=== PATIENT | female | born 1955 | race Caucasian/White ===

== ENCOUNTER → 2019-05-13 10:40 | Outpatient (CLI) | payer OTHER, SELFPAY ==
[2019-05-13 12:07] LABS: Absolute Neutrophil Count 4.3 X10^3/uL (2.0-7.7); Basophil# 0.04 X10^3/uL; Basophil% 0.5 % (0-1); Eosinophil# 0.18 X10^3/uL; Eosinophils% 2.3 % (0-5); Hemoglobin 15.3 g/dL (12.0-15.0); Lymphocyte % 33.7 % (19-41); Mean Corp Hgb Conc 31.9 g/dL (32-36); Mean Corpuscular Hgb 29.7 pg (27.0-32.0); Mean Platelet Vol. 9.2 fl (6.2-12.0); Monocyte# 0.61 X10^3/uL; Monocyte% 7.9 % (0-10); NRBC Flagged by Analyzer 0 % (0-5); Neutrophil # 4.26 X10^3/uL (2.7-7.7); Neutrophil % 55.3 % (47-70); Platelet Count 333 K/mm3 (150-450); RBC Distribution Width CV 13.6 % (11.6-14.6); RBC Distribution Width SD 46.9 fl (35.1-43.9); Red Blood Count 5.16 M/mm3 (4.2-5.4); White Blood Count 7.7 K/mm3 (4.4-11.0)
[2019-05-13 12:41] LABS: ALB/GLOB Ratio 0.7 RATIO (0.9-2.4); AST(SGOT) 12 U/L (15-37); Alanine Aminotransfer ALT/SGPT 32 U/L (13-56); Albumin, Serum 3.4 g/dL (3.2-5.0); Alkaline Phosphatase 90 U/L (45-117); Anion Gap 2 (5-15); BUN 8 mg/dL (7-18); BUN/Creat Ratio 11.5 RATIO (10-20); Calcium,Total 9.3 mg/dL (8.5-10.1); Chloride 102 mmol/L (98-107); EST Glomerular Filtration Rate 90 mL/min (>60); Est Glom Filt Rate - Afr Amer 109 mL/min (>60); Globulin 4.8 g/dL (2.2-4.2); Glucose 103 mg/dL (74-106); Protein, Total 8.2 g/dL (6.4-8.2); Sodium Level 138 mmol/L (136-145); T4 Free Direct 1.44 ng/dL (0.76-1.46); Thyroid Stim Hormone (TSH) 0.63 uIU/mL (0.358-3.74)
== END ==
PROVIDERS: Family Provider Family Medicine; PCP Family Medicine; Visit Provider Family Medicine
DX: I10 Essential (primary) hypertension (principal); E03.9 Hypothyroidism, unspecified; R73.01 Impaired fasting glucose
CPT/HCPCS: 36415; 80053; 84439; 84443; 85025

== ENCOUNTER → 2020-03-19 09:59 | Outpatient (CLI) | payer OTHER, SELFPAY ==
[2020-03-19 12:23] LABS: Absolute Lymphocyte Count 3.14 X10^3/uL (0.83-4.51); Basophil# 0.04 X10^3/uL; Basophil% 0.4 % (0-1); Eosinophil# 0.19 X10^3/uL; Eosinophils% 1.7 % (0-5); Hematocrit 46.6 % (37-47); Lymphocyte # 3.14 X10^3/ul (4.0); Lymphocyte % 28.3 % (19-41); Mean Corp Hgb Conc 32.2 g/dL (32-36); Mean Corpuscular Hgb 29.8 pg (27.0-32.0); Mean Corpuscular Volume 92.6 fL (81-99); Mean Platelet Vol. 9.7 fl (6.2-12.0); Monocyte# 0.72 X10^3/uL; Monocyte% 6.5 % (0-10); NRBC Flagged by Analyzer 0 % (0-5); Neutrophil # 6.98 X10^3/uL (2.7-7.7); Neutrophil % 62.8 % (47-70); Platelet Count 307 K/mm3 (150-450); RBC Distribution Width CV 13.3 % (11.6-14.6); RBC Distribution Width SD 45.1 fl (35.1-43.9); Red Blood Count 5.03 M/mm3 (4.2-5.4); White Blood Count 11.1 K/mm3 (4.4-11.0)
[2020-03-19 12:49] LABS: ALB/GLOB Ratio 0.6 RATIO (0.9-2.4); AST(SGOT) 9 U/L (15-37); Alanine Aminotransfer ALT/SGPT 25 U/L (13-56); Albumin, Serum 3.3 g/dL (3.2-5.0); Alkaline Phosphatase 109 U/L (45-117); Anion Gap 5 (5-15); BUN 9 mg/dL (7-18); BUN/Creat Ratio 13.2 RATIO (10-20); Calcium,Total 9.7 mg/dL (8.5-10.1); Chloride 104 mmol/L (98-107); Cholesterol 172 mg/dL (200); Creatinine, Serum 0.68 mg/dL (0.55-1.02); EST Glomerular Filtration Rate 92 mL/min (>60); Est Glom Filt Rate - Afr Amer 111 mL/min (>60); Free T3 2.9 pg/mL (2.18-3.98); Globulin 5.2 g/dL (2.2-4.2); Glucose 115 mg/dL (74-106); High Density Lipoprotein 50 mg/dL; Potassium 3.8 mmol/L (3.5-5.1); Protein, Total 8.5 g/dL (6.4-8.2); Sodium Level 140 mmol/L (136-145); T4 Free Direct 1.32 ng/dL (0.76-1.46); Thyroid Stim Hormone (TSH) 0.69 uIU/mL (0.358-3.74); Triglycerides 96 mg/dL; Very Low Density Lipoprotein 19 mg/dL (5-40)
== END ==
PROVIDERS: PCP Family Medicine; Visit Provider Family Medicine
DX: I10 Essential (primary) hypertension (principal); E03.9 Hypothyroidism, unspecified; R73.01 Impaired fasting glucose
CPT/HCPCS: 36415; 80053; 80061; 84439; 84443; 84481; 85025

== ENCOUNTER → 2022-04-07 | Outpatient (CLI) | payer MEDICARE, BC, SELFPAY ==
[2022-04-07 11:50] LABS: Absolute Lymphocyte Count 2.15 X10^3/uL (0.83-4.51); Absolute Neutrophil Count 4.3 X10^3/uL (2.0-7.7); Basophil# 0.05 X10^3/uL; Basophil% 0.7 % (0-1); Eosinophil# 0.19 X10^3/uL; Eosinophils% 2.6 % (0-5); Hematocrit 46.3 % (37-47); Hemoglobin 14.5 g/dL (12.0-15.0); Lymphocyte # 2.15 X10^3/ul (0.83-4.51); Lymphocyte % 29.9 % (19-41); Mean Corp Hgb Conc 31.3 g/dL (32-36); Mean Corpuscular Hgb 29.4 pg (27.0-32.0); Mean Corpuscular Volume 93.7 fL (81-99); Mean Platelet Vol. 9.6 fl (6.2-12.0); Monocyte# 0.53 X10^3/uL; Monocyte% 7.4 % (0-10); NRBC Flagged by Analyzer 0 % (0-5); Neutrophil # 4.26 X10^3/uL (2.7-7.7); Neutrophil % 59.1 % (47-70); Platelet Count 327 K/mm3 (150-450); RBC Distribution Width CV 13.6 % (11.6-14.6); RBC Distribution Width SD 46.7 fl (35.1-43.9); Red Blood Count 4.94 M/mm3 (4.2-5.4); White Blood Count 7.2 K/mm3 (4.4-11.0)
[2022-04-07 12:25] LABS: Anion Gap 7 (5-15); BUN 21 mg/dL (7-18); BUN/Creat Ratio 28.5 RATIO (10-20); Calcium,Total 10.3 mg/dL (8.5-10.1); Chloride 101 mmol/L (98-107); Creatinine, Serum 0.74 mg/dL (0.55-1.02); EST Glomerular Filtration Rate 84 mL/min (>60); Est Glom Filt Rate - Afr Amer 101 mL/min (>60); Glucose 113 mg/dL (74-106); Potassium 3.9 mmol/L (3.5-5.1); Sodium Level 140 mmol/L (136-145); T4 Free Direct 1.29 ng/dL (0.76-1.46); Thyroid Stim Hormone (TSH) 0.86 uIU/mL (0.358-3.74)
== END | disposition home or self-care (01) ==
LOC: BFHLAB 09:43
PROVIDERS: PCP Family Medicine; Visit Provider Family Medicine
DX: I10 Essential (primary) hypertension (principal); E03.9 Hypothyroidism, unspecified
CPT/HCPCS: 36415; 80048; 84439; 84443; 85025

== ENCOUNTER 2022-05-30 14:30 | Outpatient (RCR) | payer MEDICARE, BC, SELFPAY ==
--- NOTE | 2022-04-25 13:08 | HP.PTEVAL_ITS ---
Patient's Visit Information TOMMY MENDEZ is a 66 year old F referred to Physical Therapy by Dr. Alphonse Santos MD with a diagnosis of R hip OA. Date of Evaluation: 04/25/22 Physical Therapist: Rosalio Langley, MADIHAT, OCS, CSCS - Visit Plan Frequency: 2x /Week Duration: 4-6 Weeks Plan: 2x/week for 4-6 weeks for pool based hip R ROM, stretch quad and HS and strength core, hip LE. progress to [id number] pool if desired or consider HEP - Subjective R hip is awkward to walk. pain is 2/10 in R hip for 6 months insidiously. hard to sit and hard to lift R leg to put socks and shoes on. Pain is lateral at R hip. Comfortable when sitting but painful to get up and needs UE. X ray at Dr. Santos and is near bone on bone. May need surgery down the road. Retired. Spends day doing cross stitch and knitting. Basic ADLs: Showers and bathroom are Ok but getting there and lifting R LE is rough. No regular exercises. No other treatments for the hip. - Pain R lateral hip Pain Intensity (Out of 10): 0 Pain Intensity Range: 0, 2 - Objective R leg one half inch shorter and wears lift. Walks with a limp and short stance time on R. Trasnfers requiring UE to exit chair and very stiff. R hip AROM very llimited to 5 abd, 75 flexion, 30 ext rotation, 3 IR with pain with OP past these measurements. L HIp 100 flexion, 50 ext rotation, 15 IR, 20 abduction. + R SABAS and FADDIR, + RScour. Knee also crepitus on R maximally with some pain. reflexes 2/3 patella and achilles. Sensation WNL to gross light touch in LE. strength R hip flexion 3, abd 3, ext 3, L sided is 3+. knee ext 3+ R and pain in knee, 4- flexion, L is 4- . ankles strnegth is 4- B ankles all 4 motions. - Balance/Special Test Scores Lower Extremity Functional Score: 47 - Goals Goal 1:: Pain in R hip 1/10 at most and 50% improved. Goal Time Frame: 4-6 Weeks Goal 2:: Patient exit chair without UE or evidence of pain Goal Time Frame: 4-6 Weeks Goal 3:: LEFS 60 Goal Time Frame: 4-6 Weeks Goal 4:: I management of hip pain with pool or HEP Goal Time Frame: 4-6 Weeks - Rehabilitation Potential Physical Therapy Diagnosis: R hip degeneration limiting function. Rehabilitation Potential: Questionable - Anticipated Interventions Patient/Client Instruction: Educate patient on: Condition, Plan of Care For the Purpose of:: To decrease pain, To increase ROM, To improve muscle perf ormance and motor function, To increase tolerance to activity/condition/position Therapeutic Exercise to Include: Strength training, Flexibilty training, In an aquatic setting, Passive ROM, Active ROM For the Purpose of:: To decrease pain, To increase ROM, To improve nutrient delivery to tissue, To improve muscle performance and motor function, To increase tolerance to activity/condition/position, To improve ability of physical actions for home/community/work/leisure Thank you for the opportunity to evaluate your patient. For Medicare and Medicare HMO plans, please review the plan of care and approve it. It will need to be FAXED BACK to us at [phone] for Medicare purposes. For Medicare only, by signing this I certify the plan of care. Please let me know if there are questions or concerns regarding this plan of care. Physician Signature: Date:
--- NOTE | 2022-05-30 14:48 | HP.PTDCSUM ---
It has been my pleasure to treat TOMMY MENDEZ referred by Dr. Alphonse Santos MD, with the diagnosis of R hip OA for a total of 9 visit(s). Discharge Date: 05/30/22 Please see the following information for a summary of their discharge status. Subjective: Has cane that she uses sometimes. Pool helps but pain overall not much overall. Pain 2/10 much of time. Sleeping requires her to move around alot. R knee is hurting now a little bit. Activities are normal just painful. easier to put R shoe on. R lateral hip Pain Intensity (Out of 10): 2 % Improvement: 50 Objective/Function: R antalgia in gait, avoiding L step through. short stance time on R. Exits chair with UE adn avoids WB R. 90 AROM R hip flexion and still + SABAS adn FADDIR. Goal 1:: Pain in R hip 1/10 at most and 50% improved. Goal Progress: Progressing Goal 2:: Patient exit chair without UE or evidence of pain Goal Progress: leans off right Goal 3:: LEFS 60 Goal Progress: Not Progressing Goal 4:: I management of hip pain with pool or HEP Goal Progress: Progressing Plan: d/c, pt to go to doctor due to lack of improvement for next medical step. she will contact him. Discharge Comments: Pt top doctor for next step If there are questions or concerns regarding this patient's physical therapy, please feel free to call me at [phone]. Thank you for the referral of this patient. Sincerely, Rosalio Langley, DPT, OCS, CSCS Balance/Gait/Functional tests - Balance/Special Test Scores Lower Extremity Functional Score: 55
== END 2022-05-30 19:00 | disposition home or self-care (01) ==
LOC: PT 14:30
PROVIDERS: PCP Family Medicine; Referring Provider Orthopaedic Surgery; Visit Provider Orthopaedic Surgery
DX: M16.11 Unilateral primary osteoarthritis, right hip (principal)
CPT/HCPCS: 97113; 97161; 97164

== ENCOUNTER → 2022-08-01 | Outpatient (CLI) | payer MEDICARE, SELFPAY ==
[2022-08-01 12:50] LABS: Absolute Lymphocyte Count 2.74 X10^3/uL (0.83-4.51); Absolute Neutrophil Count 3.8 X10^3/uL (2.0-7.7); Basophil# 0.05 X10^3/uL; Basophil% 0.7 % (0-1); Eosinophil# 0.22 X10^3/uL; Hemoglobin 14.4 g/dL (12.0-15.0); Lymphocyte # 2.74 X10^3/ul (0.83-4.51); Lymphocyte % 37.3 % (19-41); Mean Corp Hgb Conc 31.3 g/dL (32-36); Mean Corpuscular Hgb 30.1 pg (27.0-32.0); Mean Platelet Vol. 9.3 fl (6.2-12.0); Monocyte# 0.52 X10^3/uL; Monocyte% 7.1 % (0-10); NRBC Flagged by Analyzer 0 % (0-5); Neutrophil # 3.81 X10^3/uL (2.7-7.7); Neutrophil % 51.8 % (47-70); Platelet Count 344 K/mm3 (150-450); RBC Distribution Width CV 13.5 % (11.6-14.6); RBC Distribution Width SD 48.6 fl (35.1-43.9); Red Blood Count 4.79 M/mm3 (4.2-5.4); White Blood Count 7.4 K/mm3 (4.4-11.0)
[2022-08-01 12:57] LABS: Anion Gap 6 (5-15); BUN 16 mg/dL (7-18); BUN/Creat Ratio 22.6 RATIO (10-20); Calcium,Total 10.5 mg/dL (8.5-10.1); Chloride 101 mmol/L (98-107); Creatinine, Serum 0.71 mg/dL (0.55-1.02); EST Glomerular Filtration Rate 88 mL/min (>60); Est Glom Filt Rate - Afr Amer 106 mL/min (>60); Glucose 102 mg/dL (74-106); Potassium 3.9 mmol/L (3.5-5.1); Sodium Level 141 mmol/L (136-145)
== END | disposition home or self-care (01) ==
LOC: BFHLAB 11:04
PROVIDERS: PCP Family Medicine; Visit Provider Family Medicine
DX: Z01.818 Encounter for other preprocedural examination (principal); I10 Essential (primary) hypertension
CPT/HCPCS: 36415; 80048; 85025

== ENCOUNTER 2022-09-21 16:27 | Inpatient (IN) | payer MEDICARE, SELFPAY ==
[2022-09-21] VITALS (7 sets, daily range): BP systolic 131–150; BP diastolic 60–76; PULSE 107–120; RESP 20–40; TEMP 36.2–36.8; O2SAT 69–100; BMI 33.3; BMI 32.6
--- NOTE | 2022-09-21 16:40 | EKG12_ITS ---
Test Reason : SWELLING Blood Pressure : / mmHG Vent. Rate : 112 BPM Atrial Rate : 112 BPM P-R Int : 140 ms QRS Dur : 068 ms QT Int : 336 ms P-R-T Axes : 039 -56 -14 degrees QTc Int : 458 ms Sinus tachycardia with Premature atrial complexes Left axis deviation Inferior infarct , age undetermined Anterolateral infarct , age undetermined Abnormal ECG Confirmed by RICHARD VICK, SHANON ([id number]), field map editor PHUC CARTER ([id number]) on 09/25/2022 11:43:05 AM Referred By: RIANNA Confirmed By:YUSUF RAMOS MD
--- NOTE | 2022-09-21 16:43 | RAD_ITS ---
STUDY: X-RAY CHEST REASON FOR EXAM: Female, 66 years old. hypoxia TECHNIQUE: Single AP portable view of the chest. COMPARISON: None. FINDINGS: There is right paratracheal and hilar fullness concerning for underlying lymphadenopathy and mass. Prominent interstitial markings within the bilateral lungs are present. There is no demonstrated pleural abnormality. Normal size heart. Normal mediastinum and [place]. Normal visualized pulmonary arteries. There is atherosclerotic tortuosity of the aortic arch and descending thoracic aorta. Normal visualized thoracic spine. Normal visualized ribs, clavicles, and shoulders. There is no demonstrated abnormality of the visualized soft tissue structures of the upper abdomen. RAD/Chest 1 View (Portable) IMPRESSION: Right hilar fullness with paratracheal lymphadenopathy and mass not excluded, recommend cross-sectional CT imaging with contrast for definitive characterization. Electronically Signed: Gianni Hunter DO at 17:03 EDT ,
[2022-09-21 16:57] LABS: Absolute Lymphocyte Count 1.26 X10^3/uL (0.83-4.51); Absolute Neutrophil Count 7.7 X10^3/uL (2.0-7.7); Basophil# 0.04 X10^3/uL; Basophil% 0.4 % (0-1); Eosinophil# 0.06 X10^3/uL; Eosinophils% 0.6 % (0-5); Hemoglobin 13.7 g/dL (12.0-15.0); Lymphocyte # 1.26 X10^3/ul (0.83-4.51); Lymphocyte % 12.7 % (19-41); Mean Corp Hgb Conc 29.1 g/dL (32-36); Mean Corpuscular Hgb 28.7 pg (27.0-32.0); Mean Corpuscular Volume 98.5 fL (81-99); Mean Platelet Vol. 8.9 fl (6.2-12.0); Monocyte# 0.91 X10^3/uL; Monocyte% 9.1 % (0-10); NRBC Flagged by Analyzer 0.2 % (0-5); Neutrophil # 7.65 X10^3/uL (2.7-7.7); Neutrophil % 76.9 % (47-70); Platelet Count 407 K/mm3 (150-450); RBC Distribution Width CV 17.6 % (11.6-14.6); RBC Distribution Width SD 63.5 fl (35.1-43.9); Red Blood Count 4.77 M/mm3 (4.2-5.4)
[2022-09-21 17:04] LABS: International Normalized Ratio 1.2; Prothrombin Time (Protime)PT. 14.6 SECONDS (11.7-14.9)
[2022-09-21 17:05] LABS: Partial Thromboplast Time 25.1 Seconds (24.1-36.2)
--- NOTE | 2022-09-21 17:09 | CT_ITS ---
STUDY: CTA CHEST REASON FOR EXAM: Female, 66 years old. HYPOXIA RADIATION DOSAGE (If Supplied By Facility): CTDIvol = ( 13.64 ) mGy, DLP = ( 370.24 ) mGycm TECHNIQUE: The examination was performed with the intravenous administration of IV 100mL Isovue-370. Post-processing of the angiographic images was performed, with multiplanar reformation and 3D reconstruction. Individualized dose optimization techniques were used for this CT. COMPARISON: 09/21/2022 plain film chest. FINDINGS: Normal enhancement of the main pulmonary artery and right and left pulmonary arteries. Normal enhancement of the bilateral peripheral pulmonary arteries. There is no demonstrated pulmonary embolism. Normal thoracic aorta and visualized great vessels. There is no demonstrated aortic dissection. Normal heart and pericardium. There is prominent node overlying the right paratracheal region measuring approximately 2.0 cm difficult to visualize on examination due to streaking artifact.. Normal hilar regions. Normal visualized trachea and bronchi. The lungs are well expanded. Scattered regions of air trapping are present with right lung scattered areas of groundglass opacity within the right upper and lower lobe. Normal pleura. Normal chest wall structures. There are degenerative changes of thoracic spine. Normal visualized upper abdomen. CT/CTA Chest W/WO Contrast IMPRESSION: 1. No evidence of pulmonary embolus or aortic dissection. 2. Scattered areas of air trapping within the bilateral lung parenchyma with patchy areas of groundglass opacity within the right lung with underlying multifocal infiltrates versus alveolar edema present. 3. Questionable 2 cm lymph node overlies the right paratracheal region with the majority of opacity on recent plain film within the right hilar region caused by overlapping vascular structures. Recommend follow-up imaging in 4-[address] chest without contrast for confirmation. Electronically Signed: Gianni Hunter DO at 18:42 EDT ,
[2022-09-21 17:15] LABS: ALB/GLOB Ratio 0.7 RATIO (0.9-2.4); AST(SGOT) 14 U/L (15-37); Alanine Aminotransfer ALT/SGPT 27 U/L (13-56); Albumin, Serum 3.1 g/dL (3.2-5.0); Alkaline Phosphatase 109 U/L (45-117); Anion Gap 4 (5-15); BUN 31 mg/dL (7-18); BUN/Creat Ratio 35.6 RATIO (10-20); Calcium,Total 9.8 mg/dL (8.5-10.1); Chloride 104 mmol/L (98-107); Creatinine, Serum 0.87 mg/dL (0.55-1.02); EST Glomerular Filtration Rate 69 mL/min (>60); Est Glom Filt Rate - Afr Amer 84 mL/min (>60); Globulin 4.5 g/dL (2.2-4.2); Glucose 117 mg/dL (74-106); Potassium 3.4 mmol/L (3.5-5.1); Protein, Total 7.6 g/dL (6.4-8.2); Sodium Level 139 mmol/L (136-145); Troponin-I HS 38 pg/mL (3.0-54.0)
--- NOTE | 2022-09-21 17:20 | EDS_ITS ---
HPI History of Present Illness Chief Complaint: Shortness of Breath Narrative Narrative: 66-year-old female presenting with shortness of breath for last couple of weeks. Patient status post right total hip replacement 08/20/[address] Harmon at the [facility]. She does deny chest pain but does state that she is very dyspneic. Especially on exertion. She states that she can probably walk about 100 feet now. Before that she did not have any problems. Patient denies fever or chills. She does not have a significant cough. No history of CHF, COPD, CHF. Patient does know a lot of bilateral lower extremity edema. She was not sure why her left leg was so swollen like her right leg since he only had surgery on the right. Patient states she does not sleep flat and she does sleep sitting up and states she is normally a right side sleeper and since she had right hip surgery she was told not to sleep on her side. PFSH PFS Medical History Cataract HTN (hypertension) Hypothyroid Home Medications acetaminophen 650 mg tablet,extended release 650 mg PO Q12H PAIN 09/21/22 [History Last Taken 09/21/22] aspirin 325 mg tablet 325 mg PO DAILY HEART HEALTH 09/21/22 [History Last Taken 09/21/22] levothyroxine 50 mcg tablet 50 mcg PO DAILY THYROID 09/21/22 [History Last Taken 09/21/22] lisinopril 10 mg-hydrochlorothiazide 12.5 mg tablet 1 tab PO QHS HTN 09/21/22 [History Last Taken 09/20/22] Allergy/AdvReac Type Severity Reaction Status Date / Time Penicillins Allergy Hives Verified 09/21/22 19:26 Surgical History History of right hip replacement Social History (Updated 09/21/22 @ 19:[address] Em Diamond DO) household members: spouse housing: house Smoking Status: Never smoker alcohol intake: never substance use type: does not use ROS ROS ED Constitutional Constitutional ED: Denies chills or fever(s) Eyes Eyes: Denies change in vision or diplopia ENT ENT ED: Denies rhinorrhea or sore throat Cardiovascular Cardiovascular: Reports orthopnea; Denies chest pain Respiratory/Chest Respiratory/Chest: Reports dyspnea, dyspnea on exertion and orthopnea Gastrointestinal Gastrointestinal: Denies abdominal pain, nausea or vomiting Genitourinary Genitourinary ED: Denies dysuria or hematuria Musculoskeletal Musculoskeletal: Denies arthralgias Integumentary Denies abscess or Abrasions Neurologic Neurologic: Denies headache(s) or paresthesias Psychiatric Psychiatric: Denies anxiety or depression EXAM Physical Exam Const Vital Signs: 09/21/22 16:29 09/21/22 16:32 09/21/22 16:35 Temperature 97.7 F L 97.7 F L Temperature Source Oral Oral Pulse Rate 120 H 119 H Respiratory Rate 29 H 40 H Respiratory Effort Short of Breath Labored Respiratory Depth Shallow Respiratory Pattern Tachypnea Blood Pressure 150/60 H Blood Pressure Mean 90 Pulse Ox 69 96 Oxygen Delivery Method Room Air Nasal Cannula Oxygen Flow Rate (L/min) 4 09/21/22 16:47 09/21/22 17:50 09/21/22 17:50 Temperature 97.2 F L Temperature Source Temporal Pulse Rate 109 H 107 H Respiratory Rate 28 H 32 H Respiratory Effort Respiratory Depth Respiratory Pattern Blood Pressure 131/67 H 131/67 H Blood Pressure Mean 88 88 Pulse Ox 100 98 Oxygen Delivery Method Nasal Cannula Nasal Cannula Nasal Cannula Oxygen Flow Rate (L/min) 4 4 4 Positive well nourished General Appearance ED: NAD HEENT Reports moist mucous membranes Eyes PERRL and EOMs intact bilaterally Neck no lymphadenopathy and supple Resp normal respiratory effort Auscultation: rales bilateral throughout Cardio regular rhythm Rate: tachycardic GI non-tender Neuro oriented x3 and CN's II-XII intact bilaterally Sensorium / Orientation: alert Motor Exam: strength 5/5 throughout Psych mental status grossly normal Skin Skin Narrative: Bilateral lower extremity edema which symmetric MDM MDM MDM Narrative Medical decision making narrative: Patient presenting tachycardic, tachypneic, hypoxic. Sepsis work-up initiated. Patient reporting shortness of breath worsening over 2 to 3 weeks. No fevers. No chest pain. Differential includes but is not limited to ACS, CHF, pneumonia, pulmonary embolism. EKG was obtained and on my interpretation this is a sinus tachycardia with PACs. The rate is 112 bpm. WI interval 140 ms, QRS duration 48 ms. No STEMI. CBC shows no leukocytosis. Hemoglobin macular stable. Platelets are normal. Renal function is normal. Potassium slightly low at 3.4. Glucose 117 without anion gap. LFTs are unremarkable. BNP elevated at 463. High-sensitivity troponin is 38. Lactic acid 2.0 urinalysis was negative for infection. Chest x-ray on my interpretation appears consistent with CHF. Radiology interprets this is right perihilar fullness and concern for mass. I obtained a CTA of the chest which was negative for PE but the radiologist does interpret this as multifocal infiltrates versus CHF. I believe this is CHF. As the patient does not have a leukocytosis. She is not had a fever. He has not had chills or body aches to suggest infection. Patient given 40 mg of Lasix IV. Discussed with the hospitalist for admission. Impression: 1. CHF 2. Hypoxic respiratory failure Lab Data Attestation: I reviewed the patient's lab results. Labs: Laboratory Results - last 24 hr 09/21/22 09/21/22 09/21/22 16:30 16:30 16:30 WBC 10.0 RBC 4.77 Hgb 13.7 Hct 47.0 MCV 98.5 MCH 28.7 MCHC 29.1 L RDW Std Deviation 63.5 H RDW Coeff of [place] 17.6 H Plt Count 407 MPV 8.9 Immature Gran % (Auto) 0.300 Neut % (Auto) 76.9 H Lymph % (Auto) 12.7 L [place] % (Auto) 9.1 Eos % (Auto) 0.6 Baso % (Auto) 0.4 Absolute Neuts (auto) 7.7 Absolute Lymphs (auto) 1.26 Nucleated RBC % 0.2 PT 14.6 INR 1.2 APTT 25.1 Sodium 139 Potassium 3.4 L Chloride 104 Carbon Dioxide 31.0 Anion Gap 4 L BUN 31 H Creatinine 0.87 Estim Creat Clear Calc 48.00 Est GFR (MDRD) Af Amer 84 Est GFR (MDRD) Non-Af 69 BUN/Creatinine Ratio 35.6 H Glucose 117 H Lactic Acid Calcium 9.8 Total Bilirubin 0.60 AST 14 L ALT 27 Alkaline Phosphatase 109 Troponin I High Sens 38 B-Natriuretic Peptide Total Protein 7.6 Albumin 3.1 L Globulin 4.5 H Albumin/Globulin Ratio 0.7 L Urine Color Urine Clarity Urine pH Ur Specific [place] Urine Protein Urine Glucose (UA) Urine Ketones Urine Occult Blood Urine Nitrite Urine Bilirubin Urine Urobilinogen Ur Leukocyte Esterase Urine RBC Urine WBC Ur Squamous Epith Cells Ur Renal Epithelial Cell Urine Bacteria Urine Mucus 09/21/22 09/21/22 09/21/22 16:30 17:00 18:35 WBC RBC Hgb Hct MCV MCH MCHC RDW Std Deviation RDW Coeff of [place] Plt Count MPV Immature Gran % (Auto) Neut % (Auto) Lymph % (Auto) Jerome % (Auto) Eos % (Auto) Baso % (Auto) Absolute Neuts (auto) Absolute Lymphs (auto) Nucleated RBC % PT INR APTT Sodium Potassium Chloride Carbon Dioxide Anion Gap BUN Creatinine Estim Creat Clear Calc Est GFR (MDRD) Af Amer Est GFR (MDRD) Non-Af BUN/Creatinine Ratio Glucose Lactic Acid 2.0 Calcium Total Bilirubin AST ALT Alkaline Phosphatase Troponin I High Sens B-Natriuretic Peptide 463.0 H Total Protein Albumin Globulin Albumin/Globulin Ratio Urine Color Yellow Urine Clarity Clear Urine pH 6.0 Ur Specific [place] 1.015 Urine Protein 100 H Urine Glucose (UA) Normal Urine Ketones Negative Urine Occult Blood 10 H Urine Nitrite Negative Urine Bilirubin Negative Urine Urobilinogen 1 H Ur Leukocyte Esterase 100 H Urine RBC 0 SEEN Urine WBC 0-5 SEEN Ur Squamous Epith Cells 0-5 SEEN Ur Renal Epithelial Cell 0-5 SEEN Urine Bacteria 0 SEEN Urine Mucus 0 SEEN Radiography Diagnostic Testing: Clinical Impression(s) from Imaging Studies Chest X-Ray 09/21/22 16:43 IMPRESSION: Right hilar fullness with paratracheal lymphadenopathy and mass not excluded, recommend cross-sectional CT imaging with contrast for definitive characterization. Electronically Signed: Gianni Hunter DO at 17:03 EDT , Chest CTA 09/21/22 17:09 IMPRESSION: 1. No evidence of pulmonary embolus or aortic dissection. 2. Scattered areas of air trapping within the bilateral lung parenchyma with patchy areas of groundglass opacity within the right lung with underlying multifocal infiltrates versus alveolar edema present. 3. Questionable 2 cm lymph node overlies the right paratracheal region with the majority of opacity on recent plain film within the right hilar region caused by overlapping vascular structures. Recommend follow-up imaging in 4-[address] chest without contrast for confirmation. Electronically Signed: Gianni Hunter DO at 18:42 EDT , Discharge Plan Disposition Disposition: Acute Care [facility] Discharge Date/Time: 09/21/22 19:46
[2022-09-21 18:46] LABS: Bacteria 0 SEEN /hpf (None Seen); Color, Urine Yellow (Yellow); Glucose, Dipstick Normal (Normal); Ketone-Dipstick Negative (Negative); Leukocyte Esterase-Dipstick 100 /ul (Negative); Mucous, Urine 0 SEEN /hpf (<or=2+); Nitrite-Dipstick Negative (Negative); Occult Blood-Urine 10 /ul (Negative); Protein-Dipstick 100 mg/dl (Negative); Red Blood Cells-Urine 0 SEEN /hpf (0-5); Specific Gravity, Urine 1.015 (1.002-1.030); Urine Bilirubin Dipstick Negative (Negative); Urine Clarity Clear (Clear); Urine Urobilinogen 1 mg/dl (Normal)
[2022-09-21 18:52] LABS: Renal Epithelial Cells 0-5 SEEN /hpf (0-5); Squamous Epithelial Cells - UA 0-5 SEEN /hpf (5-10); White Blood Cells 0-5 SEEN /hpf (0-5)
--- NOTE | 2022-09-21 18:59 | HP.PCM.HOS_ITS ---
HPI - General General Date of Admission: 09/21/22 Date of Service: 09/21/22 Chief Complaint: Shortness of Breath HPI Narrative TOMMY MENDEZ, is a 66 F who presented to the emergency department at [facility] on 09/21/2022 with shortness of breath. The patient had a total hip arthroplasty on the right side at [facility] done by Dr. Santos on 08/21/2022. The patient states she felt okay for couple days and then developed worsening shortness of breath that has slowly worsened over the past 3 weeks. She denied ever having any chest pain diaphoresis, nausea or vomiting. She states she has been significantly fatigued and sleeps a lot, noticing edema in her lower extremities that has progressively gotten worse bilaterally, and increasing shortness of breath. She states she went to physical therapy today and they sent her to her primary care physician's office who in turn sent her immediately to the emergency department. She has had no fever or chills, no coughing, no malaise or body aches, she denies any nausea, vomiting, diarrhea, constipation, melena, hematochezia, urinary symptoms, tingling, numbness, or new focal deficit. Past medical history only includes hypertension and hypothyroidism. Vital signs on presentation showed a temperature of 97.7, heart rate 120, blood pressure 150/160, respiratory rate has been anywhere from 28-40, oxygen saturation was 69% on room air and improved to 96 to 100% on 4 L nasal cannula. Despite supplemental oxygen the patient may remain somewhat tachypneic however s hows no sign of pending respiratory failure requiring intubation. Her CBC is overall unremarkable. She does have a mild left shift with a 76.9% neutrophilia. Coags were unremarkable. Chemistry panel shows mild hypokalemia with a potassium of 3.4 but is otherwise unremarkable. Glucose was 117. She is not diabetic at baseline. Lactic acid was 2. Liver functions are normal. Troponin initially was 38. BNP was markedly elevated at 463.0. Chest x-ray showed right hilar fullness with paratracheal lymphadenopathy. CTA of the chest showed no evidence of pulmonary embolus or aortic dissection, scattered areas of air trapping within the bilateral lung parenchyma and patchy groundglass opaci ties in the right lung with underlying multifocal infiltrates versus alveolar edema and a questionable 2 cm lymph node overlying the right paratracheal region with recommended follow-up CT in 4 to 6 months. EKG shows inferior T wave inversions with normal intervals and no acute changes consistent with acute ischemia. I unfortunately do not have a previous EKG for comparison. Her clinical exam and laboratory data is highly suspicious for acute decompensated heart failure. She has no previous heart history. She was given Lasix in the emergency department and request for admission was made. [facility] Medical History Cataract HTN (hypertension) Hypothyroid Home Medications acetaminophen 650 mg tablet,extended release 650 mg PO Q12H PAIN 09/21/22 [History Last Taken 09/21/22] aspirin 325 mg tablet 325 mg PO DAILY HEART HEALTH 09/21/22 [History Last Taken 09/21/22] levothyroxine 50 mcg tablet 50 mcg PO DAILY THYROID 09/21/22 [History Last Taken 09/21/22] lisinopril 10 mg-hydrochlorothiazide 12.5 mg tablet 1 tab PO QHS HTN 09/21/22 [ History Last Taken 09/20/22] Allergy/AdvReac Type Severity Reaction Status Date / Time Penicillins Allergy Hives Verified 09/21/22 19:26 no significant family history Surgical History History of right hip replacement Social History (Updated 09/21/22 @ 19:[address] Em Diamond DO) household members: spouse housing: house Smoking Status: Never smoker alcohol intake: never substance use type: does not use ROS Constitutional Constitutional: Reports change in weight, fatigue and other Details: Decreased appetite ; Denies anorexia, chills, fever(s), malaise, night sweats or weakness Eyes Eyes: Denies blurry vision, change in eye color, change in vision, discharge from eye(s), double vision, erythema, eye pain, loss of vision or other ENT HEENT: Denies abnormal hearing, dysphagia, ear pain, epistaxis, headache(s), hearing loss, nasal congestion, nasal discharge, post nasal drip, sinus pressure, sore throat or other Cardiovascular Cardiovascular: Reports dyspnea on exertion and edema; Denies chest pain, claudication, lightheadedness, orthopnea, palpitations, paroxysmal nocturnal dyspnea, rapid heart rate, syncope or other Respiratory/Chest Respiratory/Chest: Reports dyspnea, shortness of breath at rest and shortness of breath with exertion; Denies cough, excessive phlegm production, hemoptysis, productive cough, wheezing or other Gastrointestinal Gastrointestinal: Denies abdominal pain, coffee ground emesis, constipation, diarrhea, dyspepsia, hematemesis, hematochezia, loose stools, melena, nausea, vomiting or other Genitourinary Genitourinary: Denies burning urination, difficulty urinating, dysuria, hematuria, nocturia, urinary frequency, urinary hesitancy, urinary incontinence, urinary urgency or other Musculoskeletal Musculoskeletal: Reports joint pain and joint stiffness; Denies arthralgias, back pain, joint swelling, myalgias, neck pain or other Neurologic Neurologic: Denies abnormal gait, abnormal speech, confusion, disequilibrium, dizziness, focal weakness, headache(s), numbness, paresthesias, seizure-like activity, seizures, syncope, tingling, tremor(s) or other Psychiatric Psychiatric: Denies anxiety, depression, homicidal ideation, suicidal ideation or other Endocrine Endocrinology: Denies change in body appearance, cold intolerance, excessive sweating, heat intolerance, polydipsia, polyuria or other Hematologic/Lymphatic Hematologic/Lymphatic: Denies anemia, easy bleeding, easy bruising, ly mphadenopathy or other Allergic/Immunologic Allergic/Immunologic: Denies rhinitis, hives, eczemia, asthma or other Vital Signs Vital Signs Vital Signs: 09/21/22 16:29 09/21/22 16:32 09/21/22 16:35 Temperature 97.7 F L 97.7 F L Temperature Source Oral Oral Pulse Rate 120 H 119 H Respiratory Rate 29 H 40 H Respiratory Effort Short of Breath Labored Respiratory Depth Shallow Respiratory Pattern Tachypnea Blood Pressure 150/60 H Blood Pressure Mean 90 Pulse Ox 69 96 Oxygen Delivery Method Room Air Nasal Cannula Oxygen Flow Rate (L/min) 4 09/21/22 16:47 09/21/22 17:50 09/21/22 17:50 Temperature 97.2 F L Temperature Source Temporal Pulse Rate 109 H 107 H Respiratory Rate 28 H 32 H Respiratory Effort Respiratory Depth Respiratory Pattern Blood Pressure 131/67 H 131/67 H Blood Pressure Mean 88 88 Pulse Ox 100 98 Oxygen Delivery Method Nasal Cannula Nasal Cannula Nasal Cannula Oxygen Flow Rate (L/min) 4 4 4 Weight Weight: 80 kg Body Mass Index (BMI) 33.3 Physical Exam Const alert, oriented x3 and well nourished; Negative for no apparent distress Constitutional Narrative: Obese, very pleasant, upper middle-aged, white female, sitting up in bed, at bedside, patient is short of breath but no respiratory extremis at this time, does have dyspnea with conversation, nontoxic appearing General Appearance: cooperative HEENT normocephalic, head/scalp atraumatic, hearing grossly normal bilaterally and moist oral mucous membranes HEENT Narrative: Dentition is poor, Mallampati is 2, no thrush Eyes PERRL, EOMs intact bilaterally and conjunctivae normal Eyes Narrative: No scleral icterus Neck no lymphadenopathy, supple, No no JVD and no carotid bruits Neck Narrative: Positive JVD Resp No normal respiratory effort, no retractions, no use of accessory muscles and No clear to auscultation bilaterally Resp Narrative: Bibasilar crackles in the inferior one third of the bilateral lung arita, tachypneic with significant conversational dyspnea Auscultation: rales; Negative for rhonchi or wheezes Cardio regular rhythm, S1 normal heart sound, S2 normal heart sound, no murmurs, no rub, no gallops and no clicks Cardio Narrative: Mildly tachycardic GI normal to inspection, nondistended, normoactive bowel sounds, soft to palpation and non-tender Extremity Extremity Narrative: 2+ pedal pulses, bilateral lower extremity 1+ pitting edema to the knees, no cyanosis Skin no rashes or lesions noted, No no wounds, skin turgor normal, no jaundice, no petechiae and no mottling Skin Narrative: Postoperative right hip incision appears clean and dry and healing well Neuro oriented x3, CN's II-XII intact bilaterally, moves all extremities and no focal motor deficits Neuro Narrative: Mild generalized weakness and significant fatigue Sensorium / Orientation: awake, alert, oriented to person, oriented to place and oriented to time Speech: speech normal Psych affect normal Psych Narrative: Pleasant, appropriately interactive Results Lab / Micro Data Attestation: I reviewed the patient's lab results. Result Diagrams: 09/21/22 16:30 09/21/22 16:30 Labs: Laboratory Results - last 24 hr 09/21/22 16:30: WBC 10.0, RBC 4.77, Hgb 13.7, Hct 47.0, MCV 98.5, MCH 28.7, MCHC 29.1 L, RDW Std Deviation 63.5 H, RDW Coeff of [place] 17.6 H, Plt Count 407, MPV 8.9, Immature Gran % (Auto) 0.300, Neut % (Auto) 76.9 H, Lymph % (Auto) 12.7 L, [place] % (Auto) 9.1, Eos % (Auto) 0.6, Baso % (Auto) 0.4, Absolute Neuts (auto) 7.7, Absolute Lymphs (auto) 1.26, Nucleated RBC % 0.2 09/21/22 16:30: PT 14.6, INR 1.2, APTT 25.1 09/21/22 16:30: Sodium 139, Potassium 3.4 L, Chloride 104, Carbon Dioxide 31.0, Anion Gap 4 L, BUN 31 H, Creatinine 0.87, Estim Creat Clear Calc 48.00, Est GFR (MDRD) Af Amer 84, Est GFR (MDRD) Non-Af 69, BUN/Creatinine Ratio 35.6 H, Glucose 117 H, Calcium 9.8, Total Bilirubin 0.60, AST 14 L, ALT 27, Alkaline Phosphatase 109, Troponin I High Sens 38, Total Protein 7.6, Albumin 3.1 L, Globulin 4.5 H, Albumin/Globulin Ratio 0.7 L 09/21/22 16:30: B-Natriuretic Peptide 463.0 H 09/21/22 17:00: Lactic Acid 2.0 09/21/22 18:35: Urine Color Yellow, Urine Clarity Clear, Urine pH 6.0, Ur Specific [place] 1.015, Urine Protein 100 H, Urine Glucose (UA) Normal, Urine Ketones Negative, Urine Occult Blood 10 H, Urine Nitrite Negative, Urine Bilirubin Negative, Urine Urobilinogen 1 H, Ur Leukocyte Esterase 100 H, Urine RBC 0 SEEN, Urine WBC 0-5 SEEN, Ur Squamous Epith Cells 0-5 SEEN, Ur Renal Epithelial Cell 0-5 SEEN, Urine Bacteria 0 SEEN, Urine Mucus 0 SEEN Micro: Microbiology 09/21/22 17:03 Nasal Secretion SARS-CoV-2 & FLU Antigen (Rapid) - Final Radiology Impression Chest X-Ray 09/21/22 16:43 IMPRESSION: Right hilar fullness with paratracheal lymphadenopathy and mass not excluded, recommend cross-sectional CT imaging with contrast for definitive characterization. Electronically Signed: Gianni HunterDO at 17:03 EDT , Chest CTA 09/21/22 17:09 IMPRESSION: 1. No evidence of pulmonary embolus or aortic dissection. 2. Scattered areas of air trapping within the bilateral lung parenchyma with patchy areas of groundglass opacity within the right lung with underlying multifocal infiltrates versus alveolar edema present. 3. Questionable 2 cm lymph node overlies the right paratracheal region with the majority of opacity on recent plain film within the right hilar region caused by overlapping vascular structures. Recommend follow-up imaging in 4-[address] chest without contrast for confirmation. Electronically Signed: Gianni HunterDO at 18:42 EDT , Assessment & Plan Assessment/Plan (1) Acute respiratory failure with hypoxia: (2) Elevated brain natriuretic peptide (BNP) level: (3) Acute decompensated heart failure: (4) Hyperglycemia: (5) Hypokalemia: (6) Tachycardia: (7) Tachypnea: (8) Abnormal CT scan, chest: PLAN: Plan Acute hypoxic respiratory failure secondary to acute decompensated heart failure of unknown type -Patient does not wear oxygen at baseline -Recent surgery CTA was performed and ruled out PE -CT demonstrates bilateral patchy infiltrates that appear to be consistent with heart failure -Check echocardiogram -Cycle cardiac enzymes -Lasix IV push twice daily -Daily weights -Fluid restriction -Sodium restricted diet -Check TSH -Currently requiring 4 L nasal cannula maintain oxygen saturation--> wean as able Elevated BNP -Secondary to acute decompensated heart failure -Treatment as above Hypokalemia -Potassium replacement with 40 mill equivalents p.o. potassium -Repeat BMP in a.m. -Check a.m. magnesium level Abnormal CT -2 cm lymph node overlying the right peritracheal region in the right hilar area with recommended follow-up in 4 to [address] Recent right total hip arthroplasty -Performed by Dr. Santos at [facility] on 08/20/2022 -CTA negative for PE -PT/OT -Ongoing outpatient follow-up after discharge Hypothyroidism -Continue home Synthroid once dose is clarified -check TSH Hypertension -Patient takes lisinopril 10/HCTZ 25 daily -Hold HCTZ while on diuretics -Continue lisinopril 10 mg daily -Would likely benefit from a beta-jordy however with acute heart failure will not start at this time and wait until she has a little more compensated with regards to her heart failure Obesity -BMI 33.3 -Complicates treatment, prognosis, outcomes -Recommend weight loss DVT prophylaxis -Lovenox daily CODE STATUS -Full code Charges/Coding Visit Charges Inpatient E&M: 91421 Init Hosp L3
[2022-09-21] MEDS: Furosemide 40 MG/4 ML Vial IV (19:33)
--- NOTE | 2022-09-21 20:03 | ECHOCS_ITS ---
Reason For Study: CHF Procedure This was a 2D Doppler, Color Flow transthoracic echocardiogram. The study was technically difficult. Contrast injection was performed. Exam performed portable in patient room. Left Ventricle Normal LV size. The estimated ejection fraction is 60 %. No evidence for diastolic dysfunction. No regional wall motion abnormalities noted. Right Ventricle Mildly dilated right ventricle. Mildly decreased right ventricular systolic function. Atria Normal left atrium. Normal right atrium. No doppler evidence for ASD. Mitral Valve There is no mitral valve stenosis. No mitral valve insufficiency. Tricuspid Valve There is no tricuspid stenosis. Trivial tricuspid valve insufficiency. Pulmonary artery systolic pressure is 60 mmHg. Aortic Valve Trisinus/trileaflet aortic valve. There is no aortic stenosis. No aortic valve insufficiency. Pulmonic Valve There is no pulmonic valvular stenosis. No pulmonic valve insufficiency. Great Vessels Normal aortic root. Pericardium/Pleural No pericardial effusion. Medication Diluted definity 1.5ml given slow IV push to enhance endocardial definition. MMode/2D Measurements & Calculations LVIDd: 3.3 cm IVSd: 1.1 cm LAV(MOD-bp): 45.2 ml LVIDs: 1.9 cm LVPWd: 1.3 cm RVDd: 3.4 cm FS: 43.0 % LAV(MOD-bp) Indexed: 25.5 ml/m2 LAV(MOD-sp2): 35.8 ml LAV(MOD-sp4): 44.3 ml LA dimension(2D): 3.4 cm LA A4 area: 19.5 cm2 RA A4 area: 16.5 cm2 Time Measurements MV dec time: 0.11 sec Doppler Measurements & Calculations MV E max brandon: 93.7 cm/sec Lat Peak E' Brandon: 10.3 cm/sec Med Peak E' Brandon: 7.3 cm/sec MV A max brandon: 102.5 cm/sec E/E' lat: 9.1 E/E' med: 12.9 MV E/A: 0.91 MV V2 max: 107.3 cm/sec Ao V2 max: 143.1 cm/sec MV max P.6 mmHg MV dec slope: 895.1 cm/sec2 Ao max P.2 mmHg MV V2 mean: 71.3 cm/sec Ao V2 mean: 101.4 cm/sec MV mean P.3 mmHg Ao mean P.6 mmHg MV V2 VTI: 25.6 cm Ao V2 VTI: 23.8 cm LV V1 max: 135.6 cm/sec PA V2 max: 125.8 cm/sec TR max brandon: 361.9 cm/sec LV V1 max P.4 mmHg PA V2 mean: 79.1 cm/sec TR max P.4 mmHg ECHO/Echo Complete W/ Contrast Interpretation Summary The estimated ejection fraction is 60 %. No evidence for diastolic dysfunction. Mildly dilated right ventricle. Mildly decreased right ventricular systolic function Ordering Physician: Em Diamond Referring Physician: CONSTANTINO MARINELLI Performed By: Xiomara Leon RCS
[2022-09-21 20:20] LABS: Hemoglobin A1c 5.4 % (3.8-5.6)
[2022-09-21] MEDS: Potassium Chloride Oral Tablet 20 MEQ 40 MEQ PO (20:36)
[2022-09-21 21:06] LABS: Reflex Lactate? Y
[2022-09-21 21:39] LABS: Troponin-I HS 37 pg/mL (3.0-54.0)
--- NOTE | 2022-09-21 22:40 | PCM.PN.BLA ---
Progress Note Notified of elevated lactic acid from 2 to 3. Chart reviewed. Like secondary to hypoxemia. No fever. Will check white count.
[2022-09-21 23:39] LABS: Absolute Lymphocyte Count 1.99 X10^3/uL (0.83-4.51); Absolute Neutrophil Count 5.4 X10^3/uL (2.0-7.7); Basophil# 0.03 X10^3/uL; Basophil% 0.3 % (0-1); Eosinophil# 0.24 X10^3/uL; Eosinophils% 2.8 % (0-5); Hematocrit 43.9 % (37-47); Lymphocyte # 1.99 X10^3/ul (0.83-4.51); Lymphocyte % 22.8 % (19-41); Mean Corp Hgb Conc 29.6 g/dL (32-36); Mean Corpuscular Hgb 28.6 pg (27.0-32.0); Mean Corpuscular Volume 96.7 fL (81-99); Mean Platelet Vol. 8.9 fl (6.2-12.0); Monocyte# 0.95 X10^3/uL; Monocyte% 10.9 % (0-10); NRBC Flagged by Analyzer 0.2 % (0-5); Neutrophil # 5.42 X10^3/uL (2.7-7.7); Neutrophil % 62.3 % (47-70); Platelet Count 337 K/mm3 (150-450); RBC Distribution Width CV 17.3 % (11.6-14.6); RBC Distribution Width SD 61.3 fl (35.1-43.9); Red Blood Count 4.54 M/mm3 (4.2-5.4); White Blood Count 8.7 K/mm3 (4.4-11.0)
[2022-09-21 23:51] LABS: Troponin-I HS 38 pg/mL (3.0-54.0)
[2022-09-22] VITALS (10 sets, daily range): BP systolic 114–138; BP diastolic 44–70; PULSE 105–112; RESP 14–20; TEMP 36.4–36.7; O2SAT 64–96; BMI 32.3
[2022-09-22 06:03] LABS: Absolute Lymphocyte Count 1.85 X10^3/uL (0.83-4.51); Absolute Neutrophil Count 5.8 X10^3/uL (2.0-7.7); Basophil# 0.04 X10^3/uL; Basophil% 0.4 % (0-1); Eosinophil# 0.34 X10^3/uL; Eosinophils% 3.8 % (0-5); Hematocrit 42.4 % (37-47); Hemoglobin 12.5 g/dL (12.0-15.0); Lymphocyte # 1.85 X10^3/ul (0.83-4.51); Lymphocyte % 20.6 % (19-41); Mean Corp Hgb Conc 29.5 g/dL (32-36); Mean Corpuscular Hgb 28.5 pg (27.0-32.0); Mean Corpuscular Volume 96.8 fL (81-99); Monocyte# 0.86 X10^3/uL; Monocyte% 9.6 % (0-10); NRBC Flagged by Analyzer 0 % (0-5); Neutrophil # 5.84 X10^3/uL (2.7-7.7); Neutrophil % 65.3 % (47-70); Platelet Count 321 K/mm3 (150-450); RBC Distribution Width CV 17.3 % (11.6-14.6); RBC Distribution Width SD 61.1 fl (35.1-43.9); Red Blood Count 4.38 M/mm3 (4.2-5.4)
[2022-09-22 06:38] LABS: ALB/GLOB Ratio 0.7 RATIO (0.9-2.4); AST(SGOT) 12 U/L (15-37); Alanine Aminotransfer ALT/SGPT 23 U/L (13-56); Albumin, Serum 2.7 g/dL (3.2-5.0); Alkaline Phosphatase 87 U/L (45-117); Anion Gap 2 (5-15); BUN 23 mg/dL (7-18); Chloride 105 mmol/L (98-107); Cholesterol 77 mg/dL (200); EST Glomerular Filtration Rate 89 mL/min (>60); Est Glom Filt Rate - Afr Amer 108 mL/min (>60); Estimated Creatinine Clearance 41.76 ml/min; Globulin 3.9 g/dL (2.2-4.2); Glucose 98 mg/dL (74-106); High Density Lipoprotein 25 mg/dL; Magnesium 1.6 mg/dL (1.6-2.6); Phosphorus 3.9 mg/dL (2.5-4.9); Potassium 3.6 mmol/L (3.5-5.1); Protein, Total 6.6 g/dL (6.4-8.2); Sodium Level 141 mmol/L (136-145); Thyroid Stim Hormone (TSH) 0.61 uIU/mL (0.358-3.74); Triglycerides 66 mg/dL; Very Low Density Lipoprotein 13 mg/dL (5-40)
[2022-09-22] MEDS: Enoxaparin 40 MG/0.4 ML Syringe SC (08:46)
[2022-09-22] MEDS: Furosemide 40 MG/4 ML Vial IV ×2 (08:47→17:39)
[2022-09-22] MEDS: 0.9% Saline Lock 10 ML Syringe IV ×2 (08:47→17:39)
--- NOTE | 2022-09-22 11:40 | CASEMGMT ---
WILVER WILLIS Face to Face with patient for initial transition planning/care coordination assessment. WILVER WILLIS introduced self and role at [facility]. Patient lying in bed, alert and oriented. Patient willing to participate in assessment and is able to answer all questions appropriately. Care providers, pharmacy, and demographics verified. Patient wishes to discharge home with resumption of outpatient therapy at [facility]. Patient states she has no further needs or concerns at this time. CM to follow for discharge planning needs that may arise. PCP: Carin Specialists: Kathy Santos Preferred Pharmacy: [facility] Insurance: [facility] Prescription Benefit: yes Living Will/HPOA: none LNOK: Living Arrangements: Patient lives with in a single story home with 4 step to enter. Patient states she is independent at home. Transportation: DME/HHC: Patient has shower chair, raised toilet, cane, walker. Patient is currently attending outpatient therapy and plans to resume at discharge. Will monitor for home oxygen at discharge and would like [employer] for DME. Disposition Plan: Patient to discharge home with outpatient therapy, family support, and follow-up plans in place. Will monitor for home oxygen at discharge. Lynda HERNÁNDEZ, RN, CM
--- NOTE | 2022-09-22 18:22 | PCM.PN.HOSP ---
Reason for Visit Reason for Visit: Diagnoses Hypokalemia (09/21/22) Heart failure, unspecified (09/21/22) Acute respiratory failure with hypoxia (09/21/22) Tachycardia, unspecified (09/21/22) Tachypnea, not elsewhere classified (09/21/22) Hyperglycemia, unspecified (09/21/22) Other specified abnormal findings of blood chemistry (09/21/22) Abnormal findings on diagnostic imaging of other specified body structures (09/21/22) Subjective Subjective Patient was seen and examined today, she was admitted yesterday for congestive heart failure, echocardiogram today showed a normal EF with evidence of pulmonary hypertension which is moderate. Patient states she feels better today, she is still requiring supplemental oxygen however at 3 L. Objective Data Objective Data Vital Signs: Vital Signs Temp Pulse Resp BP Pulse Ox O2 Del Method O2 Flow Rate 98.0 F 105 H 14 138/70 H 90 Nasal Cannula 3 09/22/22 14:49 09/22/22 14:49 09/22/22 14:49 09/22/22 14:49 09/22/22 16:10 09/22/22 14:49 09/22/22 16:10 Oxygen Flow Rate (L/min) 3 Oxygen Delivery Method Nasal Cannula Weight: 77.6 kg Body Mass Index (BMI) 32.3 Intake & Output: Intake and Output for Last 24 Hours 09/20/22 09/21/22 09/22/22 23:59 23:59 23:59 Intake Total 240 / 240 320 / 320 Output Total 1350 / 1350 1750 / 1750 Balance -1110 / -1110 -1430 / -1430 Lab / Micro Data Result Diagrams: 09/22/22 05:40 09/22/22 05:40 Labs: Laboratory Results - last 24 hr 09/21/22 18:35: Urine Color Yellow, Urine Clarity Clear, Urine pH 6.0, Ur Specific [place] 1.015, Urine Protein 100 H, Urine Glucose (UA) Normal, Urine Ketones Negative, Urine Occult Blood 10 H, Urine Nitrite Negative, Urine Bilirubin Negative, Urine Urobilinogen 1 H, Ur Leukocyte Esterase 100 H, Urine RBC 0 SEEN, Urine WBC 0-5 SEEN, Ur Squamous Epith Cells 0-5 SEEN, Ur Renal Epithelial Cell 0-5 SEEN, Urine Bacteria 0 SEEN, Urine Mucus 0 SEEN 09/21/22 19:36: Hemoglobin A1c 5.4 09/21/22 20:58: Troponin I High Sens 37 09/21/22 20:58: Lactic Acid 3.0 H* 09/21/22 23:00: Troponin I High Sens 38 09/21/22 23:00: WBC 8.7, RBC 4.54, Hgb 13.0, Hct 43.9, MCV 96.7, MCH 28.6, MCHC 29.6 L, RDW Std Deviation 61.3 H, RDW Coeff of [place] 17.3 H, Plt Count 337, MPV 8.9, Immature Gran % (Auto) 0.900, Neut % (Auto) 62.3, Lymph % (Auto) 22.8, [place] % (Auto) 10.9 H, Eos % (Auto) 2.8, Baso % (Auto) 0.3, Absolute Neuts (auto) 5.4, Absolute Lymphs (auto) 1.99, Nucleated RBC % 0.2 09/22/22 05:40: WBC 9.0, RBC 4.38, Hgb 12.5, Hct 42.4, MCV 96.8, MCH 28.5, MCHC 29.5 L, RDW Std Deviation 61.1 H, RDW Coeff of [place] 17.3 H, Plt Count 321, MPV 9.0, Immature Gran % (Auto) 0.300, Neut % (Auto) 65.3, Lymph % (Auto) 20.6, [place] % (Auto) 9.6, Eos % (Auto) 3.8, Baso % (Auto) 0.4, Absolute Neuts (auto) 5.8, Absolute Lymphs (auto) 1.85, Nucleated RBC % 0 09/22/22 05:40: Sodium 141, Potassium 3.6, Chloride 105, Carbon Dioxide 34.0 H, Anion Gap 2 L, BUN 23 H, Creatinine 0.70, Estim Creat Clear Calc 41.76, Est GFR (MDRD) Af Amer 108, Est GFR (MDRD) Non-Af 89, BUN/Creatinine Ratio 33.0 H, Glucose 98, Calcium 9.0, Phosphorus 3.9, Magnesium 1.6, Total Bilirubin 0.60, AST 12 L, ALT 23, Alkaline Phosphatase 87, Total Protein 6.6, Albumin 2.7 L, Globulin 3.9, Albumin/Globulin Ratio 0.7 L, Triglycerides 66, Cholesterol 77, LDL Cholesterol 39, VLDL Cholesterol 13, HDL Cholesterol 25 L, TSH 0.61 Micro: Microbiology 09/21/22 18:35 Urine, Clean Catch Urine Culture - Final Mixed Lanie 09/21/22 22:00 Mucosa - Nasopharyngeal Respiratory Panel (PCR) - Final 09/21/22 17:03 Nasal Secretion SARS-CoV-2 & FLU Antigen (Rapid) - Final Radiography Diagnostic Testing: Radiology Impression Chest CTA 09/21/22 17:09 IMPRESSION: 1. No evidence of pulmonary embolus or aortic dissection. 2. Scattered areas of air trapping within the bilateral lung parenchyma with patchy areas of groundglass opacity within the right lung with underlying multifocal infiltrates versus alveolar edema present. 3. Questionable 2 cm lymph node overlies the right paratracheal region with the majority of opacity on recent plain film within the right hilar region caused by overlapping vascular structures. Recommend follow-up imaging in 4-[address] chest without contrast for confirmation. Electronically Signed: Gianni Hunter DO at 18:42 EDT , Echocardiogram 09/21/22 20:03 Interpretation Summary The estimated ejection fraction is 60 %. No evidence for diastolic dysfunction. Mildly dilated right ventricle. Mildly decreased right ventricular systolic function Ordering Physician: Em Diamond Referring Physician: CONSTANTINO MARINELLI Performed By: Xiomara Leon RCS Physical Exam Const alert, oriented x3, no apparent distress and healthy appearing General Appearance: cooperative, well kempt and well developed Orientation / Consciousness: awake, oriented to person, oriented to place and oriented to time HEENT normocephalic, head/scalp atraumatic and moist oral mucous membranes Eyes PERRL, EOMs intact bilaterally and conjunctivae normal Neck supple, no JVD, thyroid normal and no carotid bruits General: trachea midline Resp normal respiratory effort, no retractions and no use of accessory muscles Auscultation: rales bilateral lower; Negative for rhonchi or wheezes Cardio regular rate, regular rhythm, S1 normal heart sound, S2 normal heart sound, no murmurs, no rub and no gallops GI normal to inspection, nondistended, normoactive bowel sounds, soft to palpation, non-tender and non-distended Extremity Extremity Narrative: Generalized edema is noted in both feet Skin no rashes or lesions noted General Skin Exam: no breakdown Neuro oriented x3, CN's II-XII intact bilaterally, moves all extremities, no focal motor deficits and no sensory deficits noted Sensorium / Orientation: awake, alert, oriented to person, oriented to place and oriented to time Speech: speech normal Psych affect normal Assessment & Plan Assessment/Plan (1) Acute decompensated heart failure: PLAN: Plan 1. New onset acute diastolic congestive heart failure-patient will remain on IV Lasix and potassium supplementation, BMP will be obtained tomorrow #2 moderate pulmonary hypertension-again patient will remain on Lasix #3 acute hypoxia secondary to #1-patient's pulse ox will be monitored, oxygen will be weaned if possible #4 hypothyroidism-patient is on Synthroid #5 essential hypertension-patient is on lisinopril hydrochlorothiazide, it is being held at this time due to the fact she is on IV Lasix, Total clinical time spent by myself addressing the patient's medical issues, reviewing all of her data, and collaborating with patient's care team: 35 minutes Charges/Coding Visit Charges Inpatient E&M: 77355 Subs Hosp L2
[2022-09-22] MEDS: Potassium Chloride Oral Tablet 20 MEQ 40 MEQ PO (21:18)
[2022-09-22] MEDS: metOLazone 5 MG Tablet PO (21:19)
[2022-09-23] VITALS (9 sets, daily range): BP systolic 115–143; BP diastolic 48–95; PULSE 106–115; RESP 18–20; TEMP 36.1–37; O2SAT 82–97; BMI 31.6
[2022-09-23] MEDS: Levothyroxine 50 MCG Tablet PO (04:51)
[2022-09-23 08:31] LABS: Anion Gap 0 (5-15); BUN 13 mg/dL (7-18); BUN/Creat Ratio 20.3 RATIO (10-20); Calcium,Total 9.6 mg/dL (8.5-10.1); Chloride 97 mmol/L (98-107); Creatinine, Serum 0.64 mg/dL (0.55-1.02); EST Glomerular Filtration Rate 99 mL/min (>60); Est Glom Filt Rate - Afr Amer 119 mL/min (>60); Estimated Creatinine Clearance 41.76 ml/min; Glucose 105 mg/dL (74-106); Potassium 3.5 mmol/L (3.5-5.1); Sodium Level 139 mmol/L (136-145)
[2022-09-23] MEDS: Enoxaparin 40 MG/0.4 ML Syringe SC (08:42)
[2022-09-23] MEDS: Potassium Chloride Oral Tablet 20 MEQ PO ×2 (08:42→17:03)
[2022-09-23] MEDS: 0.9% Saline Lock 10 ML Syringe IV (08:43)
--- NOTE | 2022-09-23 10:45 | PCM.PN.HOSP ---
Reason for Visit Reason for Visit: Diagnoses Hypokalemia (09/21/22) Heart failure, unspecified (09/21/22) Acute respiratory failure with hypoxia (09/21/22) Tachycardia, unspecified (09/21/22) Tachypnea, not elsewhere classified (09/21/22) Hyperglycemia, unspecified (09/21/22) Other specified abnormal findings of blood chemistry (09/21/22) Abnormal findings on diagnostic imaging of other specified body structures (09/21/22) Subjective Subjective Patient was seen and examined today, we lost IV access on the patient today, I do not think is necessary to try to get another IV and the patient, I have transitioned her diuretics to oral, she is still hypoxic requiring supplemental oxygen, I will reevaluate the patient tomorrow Objective Data Objective Data Vital Signs: Vital Signs Temp Pulse Resp BP Pulse Ox O2 Del Method O2 Flow Rate 97.8 F 115 H 18 137/87 H 82 Nasal Cannula 0 09/23/22 08:37 09/23/22 08:37 09/23/22 08:37 09/23/22 08:37 09/23/22 10:20 09/23/22 08:53 09/23/22 10:20 Oxygen Flow Rate (L/min) [ 5 AMBULATING with Oxygen #3] Oxygen Flow Rate (L/min) [ 4 AMBULATING with Oxygen #2] Oxygen Flow Rate (L/min) [ 2 AMBULATING with Oxygen #1] Oxygen Flow Rate (L/min) [At 0 REST on Room Air] Oxygen Flow Rate (L/min) 4 Oxygen Delivery Method Nasal Cannula Weight: 76.1 kg Body Mass Index (BMI) 31.6 Intake & Output: Intake and Output for Last 24 Hours 09/21/22 09/22/22 09/23/22 23:59 23:59 23:59 Intake Total 240 / 240 560 / 560 240 / 240 Output Total 1350 / 1350 2200 / 2200 550 / 550 Balance -1110 / -1110 -1640 / -1640 -310 / -310 Lab / Micro Data Result Diagrams: 09/22/22 05:40 09/23/22 07:15 Labs: Laboratory Results - last 24 hr 09/23/22 07:15: Sodium 139, Potassium 3.5, Chloride 97 L, Carbon Dioxide 42.0 H, Anion Gap 0 L, BUN 13, Creatinine 0.64, Estim Creat Clear Calc 41.76, Est GFR (MDRD) Af Amer 119, Est GFR (MDRD) Non-Af 99, BUN/Creatinine Ratio 20.3 H, Glucose 105, Calcium 9.6 Micro: Microbiology 09/21/22 18:35 Urine, Clean Catch Urine Culture - Final Mixed Lanie 09/21/22 22:00 Mucosa - Nasopharyngeal Respiratory Panel (PCR) - Final 09/21/22 17:03 Nasal Secretion SARS-CoV-2 & FLU Antigen (Rapid) - Final Radiography Diagnostic Testing: Radiology Impression Echocardiogram 09/21/22 20:03 Interpretation Summary The estimated ejection fraction is 60 %. No evidence for diastolic dysfunction. Mildly dilated right ventricle. Mildly decreased right ventricular systolic function Ordering Physician: Em Diamond Referring Physician: CONSTANTINO MARINELLI Performed By: Xiomara Leon RCS Physical Exam Narrative alert, oriented x3, no apparent distress and healthy appearing General Appearance: cooperative, well kempt and well developed Orientation / Consciousness: awake, oriented to person, oriented to place and oriented to time HEENT normocephalic, head/scalp atraumatic and moist oral mucous membranes Eyes PERRL, EOMs intact bilaterally and conjunctivae normal Neck supple, no JVD, thyroid normal and no carotid bruits General: trachea midline Resp normal respiratory effort, no retractions and no use of accessory muscles Auscultation: rales bilateral lower; Negative for rhonchi or wheezes Cardio regular rate, regular rhythm, S1 normal heart sound, S2 normal heart sound, no murmurs, no rub and no gallops GI normal to inspection, nondistended, normoactive bowel sounds, soft to palpation, non-tender and non-distended Extremity Extremity Narrative: Generalized edema is noted in both feet-this is improved from yesterday Skin no rashes or lesions noted General Skin Exam: no breakdown Neuro oriented x3, CN's II-XII intact bilaterally, moves all extremities, no focal motor deficits and no sensory deficits noted Sensorium / Orientation: awake, alert, oriented to person, oriented to place and oriented to time Speech: speech normal Psych affect normal Assessment & Plan Assessment/Plan (1) Acute decompensated heart failure: PLAN: Plan 1. New onset acute diastolic congestive heart failure-patient will be placed on oral Lasix and was given 1 dose of Zaroxolyn today, BMP will be rechecked tomorrow #2 moderate pulmonary hypertension-again patient will remain on Lasix #3 acute hypoxia secondary to #1-patient's pulse ox will be monitored, oxygen will be weaned if possible #4 hypothyroidism-patient is on Synthroid #5 essential hypertension-patient is on lisinopril hydrochlorothiazide, it is being held at this time due to the fact she is on IV Lasix, Total clinical time spent by myself addressing the patient's medical issues, reviewing all of her data, and collaborating with patient's care team: 35 minutes Charges/Coding Visit Charges Inpatient E&M: 74069 Subs Hosp L2
[2022-09-23] MEDS: metOLazone 5 MG Tablet PO (11:30)
[2022-09-23] MEDS: Furosemide 40 MG Tablet PO ×2 (11:30→17:03)
[2022-09-24] VITALS (19 sets, daily range): BP systolic 120–143; BP diastolic 55–82; PULSE 102–112; RESP 18–20; TEMP 36.3–37.1; O2SAT 68–96; BMI 30.8
[2022-09-24] MEDS: Levothyroxine 50 MCG Tablet PO (04:24)
[2022-09-24 06:45] LABS: Anion Gap 4 (5-15); BUN 12 mg/dL (7-18); BUN/Creat Ratio 24.3 RATIO (10-20); Calcium,Total 9.5 mg/dL (8.5-10.1); Chloride 86 mmol/L (98-107); Creatinine, Serum 0.49 mg/dL (0.55-1.02); EST Glomerular Filtration Rate 133 mL/min (>60); Est Glom Filt Rate - Afr Amer 161 mL/min (>60); Estimated Creatinine Clearance 41.76 ml/min; Glucose 116 mg/dL (74-106); Sodium Level 135 mmol/L (136-145)
[2022-09-24] MEDS: Potassium Chloride Oral Tablet 20 MEQ PO ×2 (08:28→17:27)
--- NOTE | 2022-09-24 08:34 | RAD_ITS ---
STUDY: X-RAY CHEST REASON FOR EXAM: Female, 66 years old. Hypoxia TECHNIQUE: PA and lateral views of the chest. COMPARISON: 09/21/2022 FINDINGS: EKG leads overlie the chest Lungs are underexpanded with mild improvement compared to the previous study with decreased opacifications in both lung arita. Follow-up recommended to ensure complete resolution. Normal size heart. Normal mediastinum and [place]. Normal visualized pulmonary arteries. Normal visualized aortic arch and descending thoracic aorta. There are diffuse degenerative changes of the visualized thoracic spine. Normal visualized ribs, clavicles, and shoulders. There is no demonstrated abnormality of the visualized soft tissue structures of the upper abdomen. RAD/Chest PA and Lateral IMPRESSION: Decreasing airspace opacifications in both lung arita compared to the previous study. Follow-up recommended to ensure complete resolution Electronically Signed: Matthieu Gramajo MD at 14:12 EDT ,
[2022-09-24] MEDS: Potassium Chloride Oral Tablet 20 MEQ 60 MEQ PO (10:00)
[2022-09-24] MEDS: Furosemide 40 MG Tablet PO ×2 (10:02→17:28)
[2022-09-24] MEDS: Enoxaparin 40 MG/0.4 ML Syringe SC (10:02)
[2022-09-24] MEDS: Nystatin Powder 15gm Bottle 1 APPLIC TOPICAL ×2 (10:03→20:46)
--- NOTE | 2022-09-24 11:51 | PCM.PN.HOSP ---
Reason for Visit Reason for Visit: Diagnoses Hypokalemia (09/21/22) Heart failure, unspecified (09/21/22) Acute respiratory failure with hypoxia (09/21/22) Tachycardia, unspecified (09/21/22) Tachypnea, not elsewhere classified (09/21/22) Hyperglycemia, unspecified (09/21/22) Other specified abnormal findings of blood chemistry (09/21/22) Abnormal findings on diagnostic imaging of other specified body structures (09/21/22) Subjective Subjective Patient was seen and examined today, she is still diuresing on oral Lasix and Zaroxolyn. She however remains on supplemental oxygen at this time. I ordered a chest x-ray on the patient today and the results are pending at this time. I have decided to give the patient another dose of Zaroxolyn today and I discussed placing her back on IV medication with the patient, she would prefer not to have an IV at this time and I agree that we can probably diurese her without reinserting the IV. Objective Data Objective Data Vital Signs: Vital Signs Temp Pulse Resp BP Pulse Ox O2 Del Method O2 Flow Rate 98.8 F 102 H 20 H 120/61 95 Nasal Cannula 3 09/24/22 08:31 09/24/22 08:31 09/24/22 10:00 09/24/22 08:31 09/24/22 08:31 09/24/22 10:00 09/24/22 10:00 Oxygen Flow Rate (L/min) [ 5 AMBULATING with Oxygen #3] Oxygen Flow Rate (L/min) [ 4 AMBULATING with Oxygen #2] Oxygen Flow Rate (L/min) [ 2 AMBULATING with Oxygen #1] Oxygen Flow Rate (L/min) [At 0 REST on Room Air] Oxygen Flow Rate (L/min) 3 Oxygen Delivery Method Nasal Cannula Weight: 74 kg Body Mass Index (BMI) 30.8 Intake & Output: Intake and Output for Last 24 Hours 09/22/22 09/23/22 09/24/22 23:59 23:59 23:59 Intake Total 560 / 560 1080 / 1080 120 / 120 Output Total 2200 / 2200 2050 / 2050 900 / 900 Balance -1640 / -1640 -970 / -970 -780 / -780 Lab / Micro Data Result Diagrams: 09/22/22 05:40 09/24/22 05:07 Labs: Laboratory Results - last 24 hr 09/24/22 05:07: Sodium 135 L, Potassium 3.0 L, Chloride 86 L, Carbon Dioxide 45.0 H, Anion Gap 4 L, BUN 12, Creatinine 0.49 L, Estim Creat Clear Calc 41.76, Est GFR (MDRD) Af Amer 161, Est GFR (MDRD) Non-Af 133, BUN/Creatinine Ratio 24.3 H, Glucose 116 H, Calcium 9.5 Micro: Microbiology 09/21/22 17:00 Blood Culture (Wb) - Anticubital Right Blood Culture - Preliminary No growth in 48 hours. 09/21/22 17:00 Blood Culture (Wb) - Anticubital Left Blood Culture - Preliminary No growth in 48 hours. 09/21/22 18:35 Urine, Clean Catch Urine Culture - Final Mixed Lanie 09/21/22 22:00 Mucosa - Nasopharyngeal Respiratory Panel (PCR) - Final 09/21/22 17:03 Nasal Secretion SARS-CoV-2 & FLU Antigen (Rapid) - Final Physical Exam Narrative alert, oriented x3, no apparent distress and healthy appearing General Appearance: cooperative, well kempt and well developed Orientation / Consciousness: awake, oriented to person, oriented to place and oriented to time HEENT normocephalic, head/scalp atraumatic and moist oral mucous membranes Eyes PERRL, EOMs intact bilaterally and conjunctivae normal Neck supple, no JVD, thyroid normal and no carotid bruits General: trachea midline Resp normal respiratory effort, no retractions and no use of accessory muscles Auscultation: rales bilateral lower; Negative for rhonchi or wheezes Cardio regular rate, regular rhythm, S1 normal heart sound, S2 normal heart sound, no murmurs, no rub and no gallops GI normal to inspection, nondistended, normoactive bowel sounds, soft to palpation, non-tender and non-distended Extremity Extremity Narrative: Generalized edema is noted in both feet Skin no rashes or lesions noted General Skin Exam: no breakdown Neuro oriented x3, CN's II-XII intact bilaterally, moves all extremities, no focal motor deficits and no sensory deficits noted Sensorium / Orientation: awake, alert, oriented to person, oriented to place and oriented to time Speech: speech normal Psych affect normal Assessment & Plan Assessment/Plan (1) Acute decompensated heart failure: PLAN: Plan 1. New onset acute diastolic congestive heart failure-patient remains on oral Lasix at this time, again I have decided not to place an IV and the patient and continue with oral diuresis, Zaroxolyn was given today. I have decided to give the patient an aerosol treatment to see if this improves her respiratory status. #2 moderate pulmonary hypertension-again patient will remain on Lasix #3 acute hypoxia secondary to #1-patient's pulse ox will be monitored, oxygen will be weaned if possible #4 hypothyroidism-patient is on Synthroid #5 essential hypertension-patient is on lisinopril hydrochlorothiazide, it is being held at this time due to the fact she is on IV Lasix, Total clinical time spent by myself addressing the patient's medical issues, reviewing all of her data, and collaborating with patient's care team: 36 minutes Charges/Coding Visit Charges Inpatient E&M: 46894 Subs Hosp L2
[2022-09-24] MEDS: Metolazone 2.5 MG Tablet PO (12:26)
[2022-09-24] MEDS: Albuterol 2.5 MG/3 ML VIAL.NEB. INHALATION ×2 (13:36→20:02)
--- NOTE | 2022-09-24 14:06 | CPS ---
pt saturation was 71% upon arrival. Placed patient on 5lnc, recovered to 92%
[2022-09-25] VITALS (24 sets, daily range): BP systolic 104–139; BP diastolic 54–104; PULSE 73–113; RESP 14–58; TEMP 36.1–37.1; O2SAT 81–100; BMI 29.1
--- NOTE | 2022-09-25 00:29 | RAD_ITS ---
EXAM: XR CHEST, 1 VIEW CLINICAL INDICATION: other -- SOB TECHNIQUE: Frontal view of the chest. COMPARISON: September 242019 FINDINGS: Mildly worsened density of the heterogeneous ill-defined airspace disease involving multiple lobes of the right lung. To lower lung Redemonstration of the subtle patchy airspace opacities involving the left middle lower lung. No pleural effusion or pneumothorax. Redemonstration of elevation of the right hemidiaphragm No other changes from before. RAD/Chest 1 View (Portable) IMPRESSION: 1. Mildly worsened density of the heterogeneous ill-defined airspace disease involving multiple lobes of the right lung. 2. No other significant interval changes. Electronically Signed: Rob Cano MD at 1:06 EDT ,
[2022-09-25] MEDS: 0.9% Saline Lock 10 ML Syringe IV ×2 (00:52→21:19)
[2022-09-25] MEDS: Furosemide 40 MG/4 ML Vial IV (00:54)
[2022-09-25] MEDS: LORazepam 2 MG/ML Syringe IV (01:25)
[2022-09-25] MEDS: Albuterol 2.5 MG/3 ML VIAL.NEB. INHALATION ×3 (07:08→19:48)
--- NOTE | 2022-09-25 07:30 | CPS ---
PEP AND SMI HELD. PT ON BIPAP
[2022-09-25 07:39] LABS: BUN 14 mg/dL (7-18); BUN/Creat Ratio 20.1 RATIO (10-20); Calcium,Total 10.1 mg/dL (8.5-10.1); Carbon Dioxide > 45.0 mmol/L (21.0-32.0); Chloride 84 mmol/L (98-107); EST Glomerular Filtration Rate 89 mL/min (>60); Est Glom Filt Rate - Afr Amer 108 mL/min (>60); Estimated Creatinine Clearance 41.76 ml/min; Glucose 123 mg/dL (74-106); Potassium 2.9 mmol/L (3.5-5.1); Sodium Level 134 mmol/L (136-145)
--- NOTE | 2022-09-25 08:38 | PCM.PN.HOSP ---
Reason for Visit Reason for Visit: Diagnoses Hypokalemia (09/21/22) Heart failure, unspecified (09/21/22) Acute respiratory failure with hypoxia (09/21/22) Tachycardia, unspecified (09/21/22) Tachypnea, not elsewhere classified (09/21/22) Hyperglycemia, unspecified (09/21/22) Other specified abnormal findings of blood chemistry (09/21/22) Abnormal findings on diagnostic imaging of other specified body structures (09/21/22) Subjective Subjective Patient is a 66-year-old lady admitted with shortness of breath and bilateral lower extremity swelling. An assessment of acute congestive heart failure with preserved ejection fraction made admitted to a monitored bed where patient is currently being managed Objective Data Objective Data Vital Signs: Vital Signs Temp Pulse Resp BP Pulse Ox O2 Del Method O2 Flow Rate 97.8 F 100 18 110/76 98 Trach Collar 3 09/25/22 06:00 09/25/22 07:08 09/25/22 07:08 09/25/22 06:00 09/25/22 07:08 09/25/22 06:23 09/25/22 01:38 FiO2 35 09/25/22 07:08 Oxygen Flow Rate (L/min) [ 5 AMBULATING with Oxygen #3] Oxygen Flow Rate (L/min) [ 4 AMBULATING with Oxygen #2] Oxygen Flow Rate (L/min) [ 2 AMBULATING with Oxygen #1] Oxygen Flow Rate (L/min) [At 0 REST on Room Air] Oxygen Flow Rate (L/min) 3 Oxygen Delivery Method Trach Collar Weight: 69.9 kg Body Mass Index (BMI) 29.1 Intake & Output: Intake and Output for Last 24 Hours 09/23/22 09/24/22 09/25/22 23:59 23:59 23:59 Intake Total 1080 / 1080 840 / 960 120 / 120 Output Total 2049 / 2049 1150 / 1150 0 / 0 Balance -970 / -970 -310 / -190 120 / 120 Lab / Micro Data Result Diagrams: 09/22/22 05:40 09/25/22 06:20 Labs: Laboratory Results - last 24 hr 09/25/22 06:20: Sodium 134 L, Potassium 2.9 L, Chloride 84 L, Carbon Dioxide > 45.0 H*, Anion Gap TNP, BUN 14, Creatinine 0.70, Estim Creat Clear Calc 41.76, Est GFR (MDRD) Af Amer 108, Est GFR (MDRD) Non-Af 89, BUN/Creatinine Ratio 20.1 H, Glucose 123 H, Calcium 10.1 Micro: Microbiology 09/21/22 17:00 Blood Culture (Wb) - Anticubital Right Blood Culture - Preliminary No growth in 48 hours. 09/21/22 17:00 Blood Culture (Wb) - Anticubital Left Blood Culture - Preliminary No growth in 48 hours. 09/21/22 18:35 Urine, Clean Catch Urine Culture - Final Mixed Lanie 09/21/22 22:00 Mucosa - Nasopharyngeal Respiratory Panel (PCR) - Final 09/21/22 17:03 Nasal Secretion SARS-CoV-2 & FLU Antigen (Rapid) - Final Radiography Diagnostic Testing: Radiology Impression Chest X-Ray 09/24/22 08:34 IMPRESSION: Decreasing airspace opacifications in both lung arita compared to the previous study. Follow-up recommended to ensure complete resolution Electronically Signed: Matthieu Gramajo MD at 14:12 EDT , Chest X-Ray 09/25/22 00:29 IMPRESSION: 1. Mildly worsened density of the heterogeneous ill-defined airspace disease involving multiple lobes of the right lung. 2. No other significant interval changes. Electronically Signed: Rbo Cano MD at 1:06 EDT , Physical Exam Narrative GENERAL: Lethargic HEENT: Atraumatic; normocephalic EYES; Anicteric, Normal Conjunctiva NECK; supple, normal thyroid, RESPIRATORY:, Dyspneic at rest, tachypneic diminished to auscultation CARDIOVASCULAR: Regular S1 S2, GI: soft, normoactive bowel sounds, : No Renal angle tenderness; EXTREMITIES: No edema, no clubbing, MUSCULOSKELETAL: no muscle wasting NEURO: Awake; no lateralizing signs. SKIN: No Rash PSYCH; lethargic but arousable Assessment & Plan Assessment/Plan (1) Acute decompensated heart failure: PLAN: Plan Patient is a 66-year-old lady admitted with shortness of breath and bilateral lower extremity swelling. An assessment of acute congestive heart failure with preserved ejection fraction made admitted to a monitored bed where patient is currently being managed 1. Acute hypoxic and hypercapnic respiratory failure ? Secondary to congestive heart failure necessitating the use of noninvasive ventilation BiPAP with oxygen which is currently being titrated to keep saturation greater than 90. 2. Acute metabolic encephalopathy ? Secondary to patient hypercapnia patient is on BiPAP to expect improvement with improvement in her CO2 levels 3. Acute congestive heart failure with preserved ejection fraction ? Echo demonstrated EF of 60%. Patient managed with fluid restriction, daily weight, strict input and output low-sodium diet as well as IV diuretics 4. Hypokalemia ? Secondary to patient diuresis corrected per protocol repeat labs ordered for monitoring 5. Hypothyroidism - Patient is on levothyroxine home dose continued 6. Essential hypertension ? Patient is on lisinopril and HCTZ currently being held 7. Moderate pulmonary hypertension ? Patient is on Lasix as well as noninvasive ventilation with BiPAP 8. DVT prophylaxis - On enoxaparin Time spent in the patient's overall evaluation,decision-making process, review of diagnostic data, adjustment of management, discussion with other providers, nursing nursing and ancillary staff involved in patient's care documentation, 55 Minutes Charges/Coding Visit Charges Inpatient E&M: [id number] [place] [id number]
[2022-09-25] MEDS: Enoxaparin 40 MG/0.4 ML Syringe SC (10:54)
[2022-09-25] MEDS: Nystatin Powder 15gm Bottle 1 APPLIC TOPICAL ×2 (10:54→23:42)
[2022-09-25] MEDS: Furosemide 40 MG Tablet PO ×2 (10:54→18:23)
[2022-09-25] MEDS: Potassium Chloride Oral Tablet 20 MEQ PO ×2 (10:54→18:25)
[2022-09-25 12:14] LABS: BUN 17 mg/dL (7-18); BUN/Creat Ratio 21.4 RATIO (10-20); Calcium,Total 10.1 mg/dL (8.5-10.1); Carbon Dioxide > 45.0 mmol/L (21.0-32.0); Chloride 83 mmol/L (98-107); Creatinine, Serum 0.79 mg/dL (0.55-1.02); EST Glomerular Filtration Rate 77 mL/min (>60); Est Glom Filt Rate - Afr Amer 93 mL/min (>60); Estimated Creatinine Clearance 41.76 ml/min; Glucose 120 mg/dL (74-106); Potassium 3.2 mmol/L (3.5-5.1); Sodium Level 135 mmol/L (136-145)
--- NOTE | 2022-09-25 12:42 | CPS ---
Critical values verified times two.Notified charge nurse who notified DR. Pereira. DR. Pereira aware.
[2022-09-25 15:36] LABS: Allen Test Positive; Base Excess > 30 mmol/L (-2 to +2); Bicarbonate 57.5 mmol/L (22-26); Blood Gas Specimen Type ART; O2 Delivery Device Cannula; PO2 73 mmHG (75-100); SITE L Radial; SO2 94 % (95-99); Total Carbon Dioxide > 50 mmol/L; pCO2 79.4 mmHg (35-45); pH 7.47 (7.35-7.45)
--- NOTE | 2022-09-25 16:15 | CHAPLAIN ---
Type of Pastoral Visit _x__ Initial Visit ___ Follow-up Visit ___ On-call Visit ___ General Patient Visit ___ Spiritual Assessment ___ Family Conference ___ Bereavement ___ Rapid Response ___ Code Blue ___ Other (describe below) Pastoral Care Referral From _x__ Patient ___ Family ___ Nurse ___ Physician ___ Digital Marketing Specialist ___ Penal Officer ___ Other (describe below) Sacrament/Intervention _x__ Active listening ___ Anointing ___ Anabaptist ___ Bereavement ___ Communion ___ Leyla exploration ___ _x__ Life review _x__ Prayer ___ Reconciliation ___ Sacrament of Sick _x__ Supportive presence ___ Wedding ___ Other (describe below) Pastoral Comments patient reports on recent surgery and recovery and how this has turned into a new situation; pt is talkative; spouse enters room
[2022-09-25] MEDS: Potassium Chloride Oral Tablet 20 MEQ 40 MEQ PO (18:22)
[2022-09-25] MEDS: Ondansetron 4 MG/2 ML Vial IV (21:19)
[2022-09-26] VITALS (21 sets, daily range): BP systolic 104–127; BP diastolic 48–91; PULSE 99–112; RESP 14–38; TEMP 36.3–36.7; O2SAT 72–100; BMI 28.9
[2022-09-26] MEDS: proCHLORPERazine 10 MG/2 ML Vial 5 MG IV (01:58)
[2022-09-26] MEDS: Levothyroxine 50 MCG Tablet PO (04:13)
[2022-09-26 06:07] LABS: Absolute Neutrophil Count 4.8 X10^3/uL (2.0-7.7); Basophil# 0.02 X10^3/uL; Basophil% 0.3 % (0-1); Eosinophil# 0.08 X10^3/uL; Eosinophils% 1.1 % (0-5); Hematocrit 46.8 % (37-47); Hemoglobin 13.8 g/dL (12.0-15.0); Lymphocyte % 20.2 % (19-41); Mean Corp Hgb Conc 29.5 g/dL (32-36); Mean Corpuscular Volume 94.9 fL (81-99); Monocyte# 1.07 X10^3/uL; Monocyte% 14.4 % (0-10); NRBC Flagged by Analyzer 0 % (0-5); Neutrophil # 4.75 X10^3/uL (2.7-7.7); Neutrophil % 63.9 % (47-70); Platelet Count 301 K/mm3 (150-450); RBC Distribution Width CV 16.6 % (11.6-14.6); RBC Distribution Width SD 57.6 fl (35.1-43.9); Red Blood Count 4.93 M/mm3 (4.2-5.4); White Blood Count 7.4 K/mm3 (4.4-11.0)
[2022-09-26 06:39] LABS: BUN 23 mg/dL (7-18); BUN/Creat Ratio 32.7 RATIO (10-20); Calcium,Total 9.6 mg/dL (8.5-10.1); Carbon Dioxide > 45.0 mmol/L (21.0-32.0); Chloride 84 mmol/L (98-107); EST Glomerular Filtration Rate 88 mL/min (>60); Est Glom Filt Rate - Afr Amer 107 mL/min (>60); Estimated Creatinine Clearance 41.76 ml/min; Glucose 107 mg/dL (74-106); Magnesium 1.9 mg/dL (1.6-2.6); Phosphorus 3.9 mg/dL (2.5-4.9); Potassium 3.2 mmol/L (3.5-5.1); Sodium Level 137 mmol/L (136-145)
[2022-09-26] MEDS: Albuterol 2.5 MG/3 ML VIAL.NEB. INHALATION ×3 (07:12→19:00)
--- NOTE | 2022-09-26 07:26 | PN.HOSP_ITS ---
Reason for Visit Reason for Visit: Diagnoses Hypokalemia (09/21/22) Heart failure, unspecified (09/21/22) Acute respiratory failure with hypoxia (09/21/22) Tachycardia, unspecified (09/21/22) Tachypnea, not elsewhere classified (09/21/22) Hyperglycemia, unspecified (09/21/22) Other specified abnormal findings of blood chemistry (09/21/22) Abnormal findings on diagnostic imaging of other specified body structures (09/21/22) Subjective Subjective Seen has been weaned off BiPAP. Her overall level of sensorium markedly improved. Objective Data Objective Data Vital Signs: Vital Signs Temp Pulse Resp BP Pulse Ox O2 Del Method O2 Flow Rate 97.4 F L 109 H 20 H 127/52 H 95 Nasal Cannula 3 09/26/22 06:48 09/26/22 06:48 09/26/22 06:48 09/26/22 06:48 09/26/22 06:48 09/26/22 06:48 09/26/22 06:48 FiO2 35 09/26/22 02:01 Oxygen Flow Rate (L/min) [ 5 AMBULATING with Oxygen #3] Oxygen Flow Rate (L/min) [ 4 AMBULATING with Oxygen #2] Oxygen Flow Rate (L/min) [ 2 AMBULATING with Oxygen #1] Oxygen Flow Rate (L/min) [At 0 REST on Room Air] Oxygen Flow Rate (L/min) 3 Oxygen Delivery Method Nasal Cannula Weight: 69.4 kg Body Mass Index (BMI) 28.9 Intake & Output: Intake and Output for Last 24 Hours 09/24/22 09/25/22 09/26/22 23:59 23:59 23:59 Intake Total 840 / 960 780 / 1020 240 / 240 Output Total 1150 / 1150 800 / 800 Balance -310 / -190 -20 / 220 240 / 240 Lab / Micro Data Result Diagrams: 09/26/22 05:15 09/26/22 05:15 Labs: Laboratory Results - last 24 hr 09/25/22 06:20: Sodium 134 L, Potassium 2.9 L, Chloride 84 L, Carbon Dioxide > 45.0 H*, Anion Gap TNP, BUN 14, Creatinine 0.70, Estim Creat Clear Calc 41.76, Est GFR (MDRD) Af Amer 108, Est GFR (MDRD) Non-Af 89, BUN/Creatinine Ratio 20.1 H, Glucose 123 H, Calcium 10.1 09/25/22 11:18: Sodium 135 L, Potassium 3.2 L, Chloride 83 L, Carbon Dioxide > 45.0 H*, Anion Gap TNP, BUN 17, Creatinine 0.79, Estim Creat Clear Calc 41.76, Est GFR (MDRD) Af Amer 93, Est GFR (MDRD) Non-Af 77, BUN/Creatinine Ratio 21.4 H , Glucose 120 H, Calcium 10.1 09/26/22 05:15: WBC 7.4, RBC 4.93, Hgb 13.8, Hct 46.8, MCV 94.9, MCH 28.0, MCHC 29.5 L, RDW Std Deviation 57.6 H, RDW Coeff of [place] 16.6 H, Plt Count 301, MPV 9.0, Immature Gran % (Auto) 0.100, Neut % (Auto) 63.9, Lymph % (Auto) 20.2, [place] % (Auto) 14.4 H, Eos % (Auto) 1.1, Baso % (Auto) 0.3, Absolute Neuts (auto) 4.8, Absolute Lymphs (auto) 1.50, Nucleated RBC % 0 09/26/22 05:15: Sodium 137, Potassium 3.2 L, Chloride 84 L, Carbon Dioxide > 45.0 H*, Anion Gap TNP, BUN 23 H, Creatinine 0.70, Estim Creat Clear Calc 41.76, Est GFR (MDRD) Af Amer 107, Est GFR (MDRD) Non-Af 88, BUN/Creatinine Ratio 32.7 H, Glucose 107 H, Calcium 9.6, Phosphorus 3.9, Magnesium 1.9 Micro: Microbiology 09/21/22 17:00 Blood Culture (Wb) - Anticubital Right Blood Culture - Preliminary No growth in 48 hours. 09/21/22 17:00 Blood Culture (Wb) - Anticubital Left Blood Culture - Preliminary No growth in 48 hours. 09/21/22 18:35 Urine, Clean Catch Urine Culture - Final Mixed Lanie 09/21/22 22:00 Mucosa - Nasopharyngeal Respiratory Panel (PCR) - Final 09/21/22 17:03 Nasal Secretion SARS-CoV-2 & FLU Antigen (Rapid) - Final ABG Data ABG results: ABG 09/25/22 12:42 Specimen Type ART Sample Site L Radial pH 7.47 H Bicarbonate Actual 57.5 H Total CO2 > 50 Base Excess > 30 H O2 Saturation 94 L ABG pCO2 79.4 H* ABG pO2 73 L Leonard Test Positive O2 Delivery Device Cannula Liter Flow 3.0 Crit Call To/Read Back Yes Physical Exam Narrative GENERAL: Cooperative HEENT: Atraumatic; normocephalic EYES; Anicteric, Normal Conjunctiva NECK; supple, normal thyroid, RESPIRATORY:, Diminished with occasional crackles CARDIOVASCULAR: Regular S1 S2, GI: soft, normoactive bowel sounds, : No Renal angle tenderness; EXTREMITIES: No edema, no clubbing, MUSCULOSKELETAL: no muscle wasting NEURO: Awake; no lateralizing signs. SKIN: No Rash PSYCH; flat affect Assessment & Plan Assessment/Plan (1) Acute decompensated heart failure: PLAN: Plan Patient is a 66-year-old lady admitted with shortness of breath and bilateral lower extremity swelling. An assessment of acute congestive heart failure with preserved ejection fraction made admitted to a monitored bed where patient is currently being managed 1. Acute hypoxic and hypercapnic respiratory failure ? Secondary to congestive heart failure necessitating the use of noninvasive ventilation BiPAP with oxygen which is currently being titrated to keep saturation greater than 90. ? 09/26/2022; patient has been weaned off BiPAP currently on nasal cannula 2. Acute metabolic encephalopathy ? Secondary to patient hypercapnia patient is on BiPAP to expect improvement with improvement in her CO2 levels ? 09/26/2022; patient level of sensorium markedly improved. Seen in consultation by Dr. Shi with pulmonary medicine notes and recommendations reviewed 3. Acute congestive heart failure with preserved ejection fraction ? Echo demonstrated EF of 60%. Patient managed with fluid restriction, daily weight, strict input and output low-sodium diet as well as IV diuretics 4. Hypokalemia ? Secondary to patient diuresis corrected per protocol repeat labs ordered for monitoring 5. Hypothyroidism - Patient is on levothyroxine home dose continued 6. Essential hypertension ? Patient is on lisinopril and HCTZ currently being held 7. Moderate pulmonary hypertension ? Patient is on Lasix as well as noninvasive ventilation with BiPAP 8. DVT prophylaxis - On enoxaparin Time spent in the patient's overall evaluation,decision-making process, review of diagnostic data, adjustment of management, discussion with other providers, nursing nursing and ancillary staff involved in patient's care documentation, 45 Minutes Charges/Coding Visit Charges Inpatient E&M: 87931 Subs Hosp L2
--- NOTE | 2022-09-26 08:07 | EX.PCM.CONCC ---
Assessment & Plan Assessment/Plan (1) Acute respiratory failure with hypoxia: PLAN: Plan RECOMMENDATIONS: 1. Wean supplemental oxygen to maintain saturations at or above 90%. 2. Continue bronchodilator therapy. 3. Continue diuretics as tolerated by hemodynamics and renal function. 4. Anticipate home-going supplemental oxygen need. Perform walking oximetry study prior to discharge home. 5. Continue BiPAP therapy with naps and nightly. 6. Repeat chest x-ray, BNP and procalcitonin. 7. In light of pulmonary hypertension, will check ANCA, GERARDO with reflex, CCP antibodies and rheumatoid factor. 8. Recommend outpatient PFTs and polysomnogram. IMPRESSIONS: 1. Shortness of breath and hypoxemia The patient presented with lower extremity edema, shortness of breath and hypoxemia following total right hip arthroplasty 1 month ago. She has no pre-existing lung condition that she is aware of. However, arterial blood gas did demonstrate that the patient has chronic CO2 retention. Chest imaging demonstrated bilateral groundglass opacities, which could represent an inflammatory etiology versus edema. The patient remains on diuretics. Echocardiogram did reveal evidence of pulmonary hypertension. At this time, will obtain follow-up chest x-ray and recheck BNP and procalcitonin. The patient is afebrile without leukocytosis, making infection unlikely. In light of her pulmonary hypertension, we will send off an autoimmune and vasculitis panel. There is no evidence for PE identified on CT imaging on presentation. The patient likely has some underlying chronic lung disease, which will require further outpatient evaluation with PFTs. In the interim, it is reasonable to continue diuretics as tolerated by hemodynamics and renal function. I do anticipate that the patient will require home-going supplemental O2. The remainder of her secondary work-up for pulmonary hypertension can be completed on an outpatient basis. I would eventually recommend that she undergo a sleep study as well. 2. Hypothyroidism/hypertension Complicates care, management, recovery and prognosis. Continue home medications as indicated. This note was generated with [employer] dictation software. It may contain incorrect words, spelling, and punctuation that were not noted in checking the note before signing. HPI Consult Data Date of Consult: 09/27/22 HPI Narrative Reason for Consultation: Hypoxemia HPI Narrative: The patient is a 66-year-old female, with a history as outlined below, who presented to the emergency department on September 21 with shortness of breath, lower extremity edema and fatigue. The patient apparently underwent a total right hip arthroplasty at the [facility] on August 21. Following this procedure, the patient developed progressively worsening dyspnea. The patient denied any pre-existing lung conditions or history of venous thromboembolic disease. She did not use supplemental oxygen at her baseline. She has a very remote smoking history, but denied ever having been diagnosed with COPD or asthma. On presentation to the emergency department, the patient was noted to be afebrile and hemodynamically stable. She was, however, tachycardic and tachypneic with a 4 L/min oxygen requirement. Initial laboratory evaluation revealed no evidence of a leukocytosis. Coagulation profile was unrevealing. Chemistry profile was notable for a potassium of 3.4. BNP was elevated at 463. Troponin was negative. CTA chest showed no evidence for pulmonary embolism. An enlarged paratracheal lymph node was noted along with bilateral groundglass opacities. The patient was initially admitted to the hospital for concerns for decompensated heart failure. Surface echocardiogram completed on September 21 demonstrated normal LV size and function with an ejection fraction of 60%. The RV was noted to be mildly dilated with a pulmonary artery systolic pressure of 60 mmHg. The patient has been maintained on a p.o. Lasix regimen. She is currently documented to be overall net -3.6 L for the hospitalization. Respiratory viral panel was negative. Arterial blood gas obtained yesterday demonstrated a pH of 7.47 with a PCO2 of 79 and PO2 of 73. PFSH Medical History Cataract HTN (hypertension) Hypothyroid Home Medications acetaminophen 650 mg tablet,extended release 650 mg PO Q12H PAIN 09/21/22 [History Last Taken 09/21/22] aspirin 325 mg tablet 325 mg PO DAILY HEART HEALTH 09/21/22 [History Last Taken 09/21/22] levothyroxine 50 mcg tablet 50 mcg PO DAILY THYROID 09/21/22 [History Last Taken 09/21/22] lisinopril 10 mg-hydrochlorothiazide 12.5 mg tablet 1 tab PO QHS HTN 09/21/22 [History Last Taken 09/20/22] Allergy/AdvReac Type Severity Reaction Status Date / Time Penicillins Allergy Hives Verified 09/21/22 19:26 Family History no significant family his Surgical History History of right hip replacement Social History (Updated 09/21/22 @ 19:[address] Em Diamond DO) household members: spouse housing: house Smoking Status: Never smoker alcohol intake: never substance use type: does not use ROS ROS Narrative 10 systems reviewed with pertinent positives as noted in the HPI above. Physical Exam Const alert and no apparent distress General Appearance: cooperative HEENT normocephalic, head/scalp atraumatic and moist oral mucous membranes Eyes PERRL, EOMs intact bilaterally and conjunctivae normal Neck supple General: trachea midline Chest inspection of chest normal Resp normal respiratory effort Auscultation: rales bilateral Cardio regular rate and regular rhythm GI normal to inspection, nondistended, normoactive bowel sounds Extremity no clubbing, cyanosis or edema Skin no rashes or lesions noted Neuro oriented x3, CN's II-XII intact bilaterally and moves all extremities Psych cooperative and affect normal Lab / Micro Data Result Diagrams: 09/27/22 04:34 09/26/22 05:15 Labs: Laboratory Results - last 24 hr 09/25/22 11:18: Sodium 135 L, Potassium 3.2 L, Chloride 83 L, Carbon Dioxide > 45.0 H*, Anion Gap TNP, BUN 17, Creatinine 0.79, Estim Creat Clear Calc 41.76, Est GFR (MDRD) Af Amer 93, Est GFR (MDRD) Non-Af 77, BUN/Creatinine Ratio 21.4 H, Glucose 120 H, Calcium 10.1 09/26/22 05:15: WBC 7.4, RBC 4.93, Hgb 13.8, Hct 46.8, MCV 94.9, MCH 28.0, MCHC 29.5 L, RDW Std Deviation 57.6 H, RDW Coeff of [place] 16.6 H, Plt Count 301, MPV 9.0, Immature Gran % (Auto) 0.100, Neut % (Auto) 63.9, Lymph % (Auto) 20.2, [place] % (Auto) 14.4 H, Eos % (Auto) 1.1, Baso % (Auto) 0.3, Absolute Neuts (auto) 4.8, Absolute Lymphs (auto) 1.50, Nucleated RBC % 0 09/26/22 05:15: Sodium 137, Potassium 3.2 L, Chloride 84 L, Carbon Dioxide > 45.0 H*, Anion Gap TNP, BUN 23 H, Creatinine 0.70, Estim Creat Clear Calc 41.76, Est GFR (MDRD) Af Amer 107, Est GFR (MDRD) Non-Af 88, BUN/Creatinine Ratio 32.7 H, Glucose 107 H, Calcium 9.6, Phosphorus 3.9, Magnesium 1.9 ABG Data ABG results: ABG 09/25/22 12:42 Specimen Type ART Sample Site L Radial pH 7.47 H Bicarbonate Actual 57.5 H Total CO2 > 50 Base Excess > 30 H O2 Saturation 94 L ABG pCO2 79.4 H* ABG pO2 73 L Leonard Test Positive O2 Delivery Device Cannula Liter Flow 3.0 Crit Call To/Read Back Yes Charges/Coding Visit Charges Inpatient E&M: 47939 Init Hosp L3
--- NOTE | 2022-09-26 08:45 | RAD_ITS ---
STUDY: X-RAY CHEST REASON FOR EXAM: Female, 66 years old. Hypoxia, suspected aspiration pna TECHNIQUE: Single AP portable view of the chest. COMPARISON: Comparison is made with prior study September 25, 2022. FINDINGS: EKG electrodes are seen. Since prior study, there has been improved aeration of the right upper lobe infiltration. Mild residual changes persist. Stable mild increased markings at the left lung base. Blunting of the left costophrenic angle. Normal size heart. Normal mediastinum and [place]. Normal visualized pulmonary arteries. Normal visualized aortic arch and descending thoracic aorta. There are diffuse degenerative changes of the visualized thoracic spine. There is degenerative osteoarthritis of the bilateral shoulders. There is no demonstrated abnormality of the visualized soft tissue structures of the upper abdomen. RAD/Chest 1 View (Portable) IMPRESSION: Improved aeration of the right upper lobe infiltration. Residual changes persist. Stable increased markings at the left lung base. Electronically Signed: Marcin Telles MD at 9:40 EDT ,
[2022-09-26] MEDS: Nystatin Powder 15gm Bottle 1 APPLIC TOPICAL ×2 (10:10→22:36)
[2022-09-26] MEDS: Enoxaparin 40 MG/0.4 ML Syringe SC (10:11)
[2022-09-26] MEDS: Potassium Chloride Oral Tablet 20 MEQ PO ×2 (10:11→17:06)
[2022-09-26] MEDS: Furosemide 40 MG Tablet PO ×2 (10:11→17:07)
[2022-09-26 10:56] LABS: Rheumatoid Factor < 10.0 IU/mL (<15)
[2022-09-26] MEDS: Senna/Docusate Sodium 1 Tablet 2 TABLET PO (17:47)
--- NOTE | 2022-09-26 19:59 | NURSING ---
Pt reports needs to have BM, pt 02 2L NC, SP02 dropped to 72%. pt noted with BM unable to pass, 02 tirated to 15L pt noted 91%. pt returned to bed and repositioned with HOB elevated, pt noted to de sat to sp02 79, BIPAP applied at this time, BIPAP removed at 8PM, pt is unable to tolerate BIPAP 2000 removed. pt is encouraged to slow respirations. pt is not able to slow at this time.
[2022-09-26] MEDS: Polyethylene Glycol 3350 17 GM PACKET PO (22:36)
[2022-09-26] MEDS: Ondansetron 4 MG/2 ML Vial IV (22:36)
--- NOTE | 2022-09-26 22:44 | PCM.HOSP.N ---
Hospitalist Note Patient very anxious with BIPAP, willing to wear with medication to assist, will dose with ativan 0.5 mg IV x 1.
[2022-09-26] MEDS: LORazepam 2 MG/ML Syringe 0.5 MG IV (23:20)
[2022-09-27] VITALS (12 sets, daily range): BP systolic 107–133; BP diastolic 59–79; PULSE 96–110; RESP 14–31; TEMP 36.1–36.7; O2SAT 82–100; BMI 28.9
[2022-09-27] MEDS: 0.9% Saline Lock 10 ML Syringe IV (01:20)
[2022-09-27] MEDS: proCHLORPERazine 10 MG/2 ML Vial 5 MG IV (01:20)
[2022-09-27] MEDS: Levothyroxine 50 MCG Tablet PO (04:58)
[2022-09-27 06:01] LABS: Absolute Lymphocyte Count 1.68 X10^3/uL (0.83-4.51); Absolute Neutrophil Count 4.4 X10^3/uL (2.0-7.7); Basophil# 0.02 X10^3/uL; Basophil% 0.3 % (0-1); Eosinophil# 0.17 X10^3/uL; Eosinophils% 2.4 % (0-5); Hematocrit 45.7 % (37-47); Hemoglobin 13.6 g/dL (12.0-15.0); Lymphocyte # 1.68 X10^3/ul (0.83-4.51); Lymphocyte % 23.4 % (19-41); Mean Corp Hgb Conc 29.8 g/dL (32-36); Mean Corpuscular Hgb 28.1 pg (27.0-32.0); Mean Corpuscular Volume 94.4 fL (81-99); Mean Platelet Vol. 9.7 fl (6.2-12.0); Monocyte# 0.89 X10^3/uL; Monocyte% 12.4 % (0-10); NRBC Flagged by Analyzer 0 % (0-5); Neutrophil % 61.4 % (47-70); Platelet Count 287 K/mm3 (150-450); RBC Distribution Width CV 16.5 % (11.6-14.6); RBC Distribution Width SD 57.4 fl (35.1-43.9); Red Blood Count 4.84 M/mm3 (4.2-5.4); White Blood Count 7.2 K/mm3 (4.4-11.0)
--- NOTE | 2022-09-27 06:19 | PCM.PN.INT ---
Assessment & Plan Assessment/Plan (1) Acute respiratory failure with hypoxia: PLAN: Plan RECOMMENDATIONS: 1. Wean supplemental oxygen to maintain saturations at or above 90%. 2. Continue bronchodilator therapy. 3. Continue diuretics as tolerated by hemodynamics and renal function. 4. Continue BiPAP therapy with naps and nightly. 5. Recommend outpatient PFTs and polysomnogram. 6. Perform walking oximetry study prior to consideration for discharge home. 7. The patient is to follow-up in the pulmonary medicine clinic 2 weeks after discharge. IMPRESSIONS: 1. Shortness of breath and hypoxemia The patient presented with lower extremity edema, shortness of breath and hypoxemia following total right hip arthroplasty 1 month ago. She has no pre-existing lung condition that she is aware of. However, arterial blood gas did demonstrate that the patient has chronic CO2 retention. Chest imaging demonstrated bilateral groundglass opacities, which could represent an inflammatory etiology versus edema. The patient remains on diuretics. Echocardiogram did reveal evidence of pulmonary hypertension. The patient is afebrile without leukocytosis, making infection unlikely. In light of her pulmonary hypertension, autoimmune and vasculitis panels were sent. There is no evidence for PE identified on CT imaging on presentation. The patient likely has some underlying chronic lung disease, which will require further outpatient evaluation with PFTs. In the interim, it is reasonable to continue diuretics as tolerated by hemodynamics and renal function. I do anticipate that the patient will require home-going supplemental O2. The remainder of her secondary work-up for pulmonary hypertension can be completed on an outpatient basis. I would eventually recommend that she undergo a sleep study as well. 2. Hypothyroidism/hypertension Complicates care, management, recovery and prognosis. Continue home medications as indicated. This note was generated with [employer] dictation software. It may contain incorrect words, spelling, and punctuation that were not noted in checking the note before signing. Subjective Subjective The patient was seen and examined at the bedside this morning. Events from the last 24 hours have been reviewed. The patient is currently afebrile, hemodynamically stable and maintaining appropriate oxygen saturations on 2 L/min via nasal cannula. The patient is documented to be overall net -2.3 L for the hospitalization. Potassium was low at 3.1 with a normal creatinine. Objective Data Objective Data The patient's most recent lab work, culture data and imaging studies have all been personally reviewed. Surface echocardiogram demonstrated preserved ejection fraction of 60% with a mildly dilated RV and pulmonary artery systolic pressure of 60 mmHg. Vital Signs: Vital Signs Temp Pulse Resp BP Pulse Ox O2 Del Method O2 Flow Rate 97.0 F L 103 H 20 H 124/67 H 100 Nasal Cannula 5 09/27/22 04:53 09/27/22 04:53 09/27/22 04:53 09/27/22 04:53 09/27/22 04:53 09/27/22 05:26 09/27/22 04:53 FiO2 35 09/27/22 01:22 Oxygen Flow Rate (L/min) [ 5 AMBULATING with Oxygen #3] Oxygen Flow Rate (L/min) [ 4 AMBULATING with Oxygen #2] Oxygen Flow Rate (L/min) [ 2 AMBULATING with Oxygen #1] Oxygen Flow Rate (L/min) [At 0 REST on Room Air] Oxygen Flow Rate (L/min) 5 Oxygen Delivery Method Nasal Cannula Weight: 153 lb 3.54 oz Body Mass Index (BMI) 28.9 Intake & Output: Intake and Output for Last 24 Hours 09/25/22 09/26/22 09/27/22 23:59 23:59 23:59 Intake Total 780 / 1020 1620 / 1740 120 / 120 Output Total 800 / 800 Balance -20 / 220 1620 / 1740 120 / 120 Lab / Micro Data Attestation: I reviewed the patient's lab results. Result Diagrams: 09/27/22 04:34 09/27/22 04:34 Labs: Laboratory Results - last 24 hr 09/25/22 06:20: Procalcitonin 0.10 H 09/26/22 05:15: Sodium 137, Potassium 3.2 L, Chloride 84 L, Carbon Dioxide > 45.0 H*, Anion Gap TNP, BUN 23 H, Creatinine 0.70, Estim Creat Clear Calc 41.76, Est GFR (MDRD) Af Amer 107, Est GFR (MDRD) Non-Af 88, BUN/Creatinine Ratio 32.7 H, Glucose 107 H, Calcium 9.6, Phosphorus 3.9, Magnesium 1.9 09/26/22 05:15: B-Natriuretic Peptide 48.0 09/26/22 05:15: Rheumatoid Factor < 10.0 09/27/22 04:34: WBC 7.2, RBC 4.84, Hgb 13.6, Hct 45.7, MCV 94.4, MCH 28.1, MCHC 29.8 L, RDW Std Deviation 57.4 H, RDW Coeff of [place] 16.5 H, Plt Count 287, MPV 9.7, Immature Gran % (Auto) 0.100, Neut % (Auto) 61.4, Lymph % (Auto) 23.4, [place] % (Auto) 12.4 H, Eos % (Auto) 2.4, Baso % (Auto) 0.3, Absolute Neuts (auto) 4.4, Absolute Lymphs (auto) 1.68, Nucleated RBC % 0 Micro: Microbiology 09/21/22 17:00 Blood Culture (Wb) - Anticubital Right Blood Culture - Preliminary No growth in 48 hours. 09/21/22 17:00 Blood Culture (Wb) - Anticubital Left Blood Culture - Preliminary No growth in 48 hours. 09/21/22 18:35 Urine, Clean Catch Urine Culture - Final Mixed Lanie 09/21/22 22:00 Mucosa - Nasopharyngeal Respiratory Panel (PCR) - Final 09/21/22 17:03 Nasal Secretion SARS-CoV-2 & FLU Antigen (Rapid) - Final Radiography Diagnostic Testing: Radiology Impression Chest X-Ray 09/26/22 08:45 IMPRESSION: Improved aeration of the right upper lobe infiltration. Residual changes persist. Stable increased markings at the left lung base. Electronically Signed: Marcin Telles MD at 9:40 EDT Reading Location ID and State: [facility] / [place] , Service support , Physical Exam Const alert and no apparent distress General Appearance: cooperative HEENT normocephalic, head/scalp atraumatic and moist oral mucous membranes Eyes PERRL, EOMs intact bilaterally and conjunctivae normal Neck supple General: trachea midline Chest inspection of chest normal Resp normal respiratory effort Auscultation: rales bilateral Cardio regular rate and regular rhythm GI normal to inspection, nondistended, normoactive bowel sounds Extremity no clubbing, cyanosis or edema Skin no rashes or lesions noted Neuro oriented x3, CN's II-XII intact bilaterally and moves all extremities Psych cooperative and affect normal Charges/Coding Visit Charges Inpatient E&M: 75428 Subs Hosp L2
[2022-09-27] MEDS: Albuterol 2.5 MG/3 ML VIAL.NEB. INHALATION ×2 (06:38→13:28)
[2022-09-27 06:50] LABS: BUN 21 mg/dL (7-18); BUN/Creat Ratio 30.8 RATIO (10-20); Calcium,Total 9.5 mg/dL (8.5-10.1); Carbon Dioxide > 45.0 mmol/L (21.0-32.0); Chloride 81 mmol/L (98-107); Creatinine, Serum 0.68 mg/dL (0.55-1.02); EST Glomerular Filtration Rate 92 mL/min (>60); Est Glom Filt Rate - Afr Amer 111 mL/min (>60); Estimated Creatinine Clearance 41.76 ml/min; Glucose 100 mg/dL (74-106); Potassium 3.1 mmol/L (3.5-5.1); Sodium Level 133 mmol/L (136-145)
--- NOTE | 2022-09-27 07:46 | PCM.PN.HOSP ---
Reason for Visit Reason for Visit: Diagnoses Hypokalemia (09/21/22) Heart failure, unspecified (09/21/22) Acute respiratory failure with hypoxia (09/21/22) Tachycardia, unspecified (09/21/22) Tachypnea, not elsewhere classified (09/21/22) Hyperglycemia, unspecified (09/21/22) Other specified abnormal findings of blood chemistry (09/21/22) Abnormal findings on diagnostic imaging of other specified body structures (09/21/22) Subjective Subjective Patient seen clinical condition continues to improve. Plan is for patient to be assessed for possible discharge Objective Data Objective Data Vital Signs: Vital Signs Temp Pulse Resp BP Pulse Ox O2 Del Method O2 Flow Rate 97.0 F L 102 H 25 H 124/67 H 99 Nasal Cannula 3 09/27/22 04:53 09/27/22 06:45 09/27/22 06:45 09/27/22 04:53 09/27/22 06:39 09/27/22 06:39 09/27/22 06:39 FiO2 35 09/27/22 03:50 Oxygen Flow Rate (L/min) [ 5 AMBULATING with Oxygen #3] Oxygen Flow Rate (L/min) [ 4 AMBULATING with Oxygen #2] Oxygen Flow Rate (L/min) [ 2 AMBULATING with Oxygen #1] Oxygen Flow Rate (L/min) [At 0 REST on Room Air] Oxygen Flow Rate (L/min) 3 Oxygen Delivery Method Nasal Cannula Weight: 69.5 kg Body Mass Index (BMI) 28.9 Intake & Output: Intake and Output for Last 24 Hours 09/25/22 09/26/22 09/27/22 23:59 23:59 23:59 Intake Total 780 / 1020 1620 / 1740 360 / 360 Output Total 800 / 800 Balance - 1620 / 1740 360 / 360 Lab / Micro Data Result Diagrams: 09/27/22 04:34 09/27/22 04:34 Labs: Laboratory Results - last 24 hr 09/25/22 06:20: Procalcitonin 0.10 H 09/26/22 05:15: B-Natriuretic Peptide 48.0 09/26/22 05:15: Rheumatoid Factor < 10.0 09/27/22 04:34: WBC 7.2, RBC 4.84, Hgb 13.6, Hct 45.7, MCV 94.4, MCH 28.1, MCHC 29.8 L, RDW Std Deviation 57.4 H, RDW Coeff of [place] 16.5 H, Plt Count 287, MPV 9.7, Immature Gran % (Auto) 0.100, Neut % (Auto) 61.4, Lymph % (Auto) 23.4, [place] % (Auto) 12.4 H, Eos % (Auto) 2.4, Baso % (Auto) 0.3, Absolute Neuts (auto) 4.4, Absolute Lymphs (auto) 1.68, Nucleated RBC % 0 09/27/22 04:34: Sodium 133 L, Potassium 3.1 L, Chloride 81 L, Carbon Dioxide > 45.0 H*, Anion Gap TNP, BUN 21 H, Creatinine 0.68, Estim Creat Clear Calc 41.76, Est GFR (MDRD) Af Amer 111, Est GFR (MDRD) Non-Af 92, BUN/Creatinine Ratio 30.8 H, Glucose 100, Calcium 9.5 Micro: Microbiology 09/21/22 17:00 Blood Culture (Wb) - Anticubital Left Blood Culture - Final No growth in 5 days. 09/21/22 17:00 Blood Culture (Wb) - Anticubital Right Blood Culture - Final No growth in 5 days. 09/21/22 18:35 Urine, Clean Catch Urine Culture - Final Mixed Lanie 09/21/22 22:00 Mucosa - Nasopharyngeal Respiratory Panel (PCR) - Final 09/21/22 17:03 Nasal Secretion SARS-CoV-2 & FLU Antigen (Rapid) - Final Radiography Diagnostic Testing: Radiology Impression Chest X-Ray 09/26/22 08:45 IMPRESSION: Improved aeration of the right upper lobe infiltration. Residual changes persist. Stable increased markings at the left lung base. Electronically Signed: Marcin Telles MD at 9:40 EDT , Physical Exam Narrative GENERAL: Cooperative HEENT: Atraumatic; normocephalic EYES; Anicteric, Normal Conjunctiva NECK; supple, normal thyroid, RESPIRATORY:, Diminished with occasional crackles CARDIOVASCULAR: Regular S1 S2, GI: soft, normoactive bowel sounds, : No Renal angle tenderness; EXTREMITIES: No edema, no clubbing, MUSCULOSKELETAL: no muscle wasting NEURO: Awake; no lateralizing signs. SKIN: No Rash PSYCH; flat affect Assessment & Plan Assessment/Plan (1) Acute decompensated heart failure: PLAN: Plan Patient is a 66-year-old lady admitted with shortness of breath and bilateral lower extremity swelling. An assessment of acute congestive heart failure with preserved ejection fraction made admitted to a monitored bed where patient is currently being managed 1. Acute hypoxic and hypercapnic respiratory failure ? Secondary to congestive heart failure necessitating the use of noninvasive ventilation BiPAP with oxygen which is currently being titrated to keep saturation greater than 90. ? 09/26/2022; patient has been weaned off BiPAP currently on nasal cannula 2. Acute metabolic encephalopathy ? Secondary to patient hypercapnia patient is on BiPAP to expect improvement with improvement in her CO2 levels ? 09/26/2022; patient level of sensorium markedly improved. Seen in consultation by Dr. Shi with pulmonary medicine notes and recommendations reviewed 3. Acute congestive heart failure with preserved ejection fraction ? Echo demonstrated EF of 60%. Patient managed with fluid restriction, daily weight, strict input and output low-sodium diet as well as IV diuretics 4. Hypokalemia ? Secondary to patient diuresis corrected per protocol repeat labs ordered for monitoring 5. Hypothyroidism - Patient is on levothyroxine home dose continued 6. Essential hypertension ? Patient is on lisinopril and HCTZ currently being held 7. Moderate pulmonary hypertension ? Patient is on Lasix as well as noninvasive ventilation with BiPAP 8. DVT prophylaxis - On enoxaparin Time spent in the patient's overall evaluation,decision-making process, review of diagnostic data, adjustment of management, discussion with other providers, nursing nursing and ancillary staff involved in patient's care documentation, 45 Minutes Charges/Coding Visit Charges Inpatient E&M: 77159 Subs Hosp L2
[2022-09-27] MEDS: Potassium Chloride Oral Tablet 20 MEQ PO (08:19)
[2022-09-27] MEDS: Polyethylene Glycol 3350 17 GM PACKET PO (08:19)
[2022-09-27] MEDS: Furosemide 40 MG Tablet PO (08:19)
[2022-09-27] MEDS: Enoxaparin 40 MG/0.4 ML Syringe SC (08:19)
[2022-09-27] MEDS: Nystatin Powder 15gm Bottle 1 APPLIC TOPICAL (08:23)
[2022-09-27] MEDS: Potassium Chloride 10mEq/100mL 10 MEQ/100 ML IV.SOLN. 100 MEQ IV BOLUS ×2 (08:36→10:51)
--- NOTE | 2022-09-27 09:06 | PCM.DC.SUM ---
Providers Date of Admission: 09/21/22 Date of Discharge: 09/27/22 Primary Care Physician: Dr. Hoad Del Rosario MD Consultations 09/25/22 14:51 Consult: Bookkeeping Clerks Supervisor / Pulmonary Medicine Routine Consulting Provider: Kamari Shi Reason for Consult: Respiratory failure EMERGENT Consult: No MD Notified: Yes Date Notified: 09/25/22 Time Notified: 14:51 Method of Notification: Text Reason For Visit: HYPOXIC RESPIRATORY FAILURE/ACUTE DECOMPENSATED Diagnosis Discharge Diagnosis (1) Acute decompensated heart failure: Status: Acute Code(s): I50.9 - Heart failure, unspecified Plan Patient is a 66-year-old lady admitted with shortness of breath and bilateral lower extremity swelling. An assessment of acute congestive heart failure with preserved ejection fraction made admitted to a monitored bed where patient is currently being managed 1. Acute hypoxic and hypercapnic respiratory failure ? Secondary to congestive heart failure necessitating the use of noninvasive ventilation BiPAP with oxygen which is currently being titrated to keep saturation greater than 90. ? 09/26/2022; patient has been weaned off BiPAP currently on nasal cannula ? 09/27/2022; patient was assessed for home oxygen the patient did qualify as she will need portability since patient is more active at home as well as in the community 2. Acute metabolic encephalopathy ? Secondary to patient hypercapnia patient is on BiPAP to expect improvement with improvement in her CO2 levels ? 09/26/2022; patient level of sensorium markedly improved. Seen in consultation by Dr. Shi with pulmonary medicine notes and recommendations reviewed 3. Acute congestive heart failure with preserved ejection fraction ? Echo demonstrated EF of 60%. Patient managed with fluid restriction, daily weight, strict input and output low-sodium diet as well as IV diuretics 4. Hypokalemia ? Secondary to patient diuresis corrected per protocol repeat labs ordered for monitoring 5. Hypothyroidism - Patient is on levothyroxine home dose continued 6. Essential hypertension ? Patient is on lisinopril and HCTZ currently being held 7. Moderate pulmonary hypertension ? Patient is on Lasix as well as noninvasive ventilation with BiPAP 8. DVT prophylaxis - On enoxaparin 9. Physical deconditioning - Requested for PT OT eval and social sciences instructor to assist with discharge planning patient to continue with outpatient physical therapy Time spent in the patient's overall evaluation,decision-making process, review of diagnostic data, adjustment of management, discussion with other providers, nursing nursing and ancillary staff involved in patient's care documentation, 45 Minutes Medications at Discharge Home Medications acetaminophen 650 mg tablet,extended release 650 mg PO Q12H PAIN 09/21/22 aspirin 325 mg tablet 325 mg PO DAILY HEART HEALTH 09/21/22 levothyroxine 50 mcg tablet 50 mcg PO DAILY THYROID 09/21/22 furosemide 40 mg tablet 40 mg PO BIDLX #60 tabs 09/27/22 lisinopril 5 mg tablet 5 mg PO DAILY #60 tabs 09/27/22 potassium chloride 20 mEq tablet,extended release(part/cryst) (Klor-Con M) 20 meq PO BIDCM #30 tabs 09/27/22 Hospital Course Procedures 2-D Echocardiogram Summary of Care Provided Minutes Spent on Discharge: 45 Physical Exam Narrative GENERAL: Cooperative HEENT: Atraumatic; normocephalic EYES; Anicteric, Normal Conjunctiva NECK; supple, normal thyroid, RESPIRATORY:, Diminished with occasional crackles CARDIOVASCULAR: Regular S1 S2, GI: soft, normoactive bowel sounds, : No Renal angle tenderness; EXTREMITIES: No edema, no clubbing, MUSCULOSKELETAL: no muscle wasting NEURO: Awake; no lateralizing signs. SKIN: No Rash PSYCH; flat affect Weight / BMI Weight Weight: 69.5 kg Body Mass Index (BMI) 28.9 ABG / Lab / Microbiology Data Result Diagrams: 09/27/22 04:34 09/27/22 04:34 Laboratory: Laboratory Results - last 24 hr 09/25/22 06:20: Procalcitonin 0.10 H 09/26/22 05:15: B-Natriuretic Peptide 48.0 09/26/22 05:15: Rheumatoid Factor < 10.0 09/27/22 04:34: WBC 7.2, RBC 4.84, Hgb 13.6, Hct 45.7, MCV 94.4, MCH 28.1, MCHC 29.8 L, RDW Std Deviation 57.4 H, RDW Coeff of [place] 16.5 H, Plt Count 287, MPV 9.7, Immature Gran % (Auto) 0.100, Neut % (Auto) 61.4, Lymph % (Auto) 23.4, Leslie % (Auto) 12.4 H, Eos % (Auto) 2.4, Baso % (Auto) 0.3, Absolute Neuts (auto) 4.4, Absolute Lymphs (auto) 1.68, Nucleated RBC % 0 09/27/22 04:34: Sodium 133 L, Potassium 3.1 L, Chloride 81 L, Carbon Dioxide > 45.0 H*, Anion Gap TNP, BUN 21 H, Creatinine 0.68, Estim Creat Clear Calc 41.76, Est GFR (MDRD) Af Amer 111, Est GFR (MDRD) Non-Af 92, BUN/Creatinine Ratio 30.8 H, Glucose 100, Calcium 9.5 Microbiology: Microbiology 09/21/22 17:00 Blood Culture (Wb) - Anticubital Left Blood Culture - Final No growth in 5 days. 09/21/22 17:00 Blood Culture (Wb) - Anticubital Right Blood Culture - Final No growth in 5 days. 09/21/22 18:35 Urine, Clean Catch Urine Culture - Final Mixed Lanie 09/21/22 22:00 Mucosa - Nasopharyngeal Respiratory Panel (PCR) - Final 09/21/22 17:03 Nasal Secretion SARS-CoV-2 & FLU Antigen (Rapid) - Final Radiography Diagnostic Testing: Radiology Impression Chest X-Ray 09/26/22 08:45 IMPRESSION: Improved aeration of the right upper lobe infiltration. Residual changes persist. Stable increased markings at the left lung base. Electronically Signed: Marcin Telles MD at 9:40 EDT Reading Location ID and State: [address] [place] [address] , Service support , D/C Instructions Discharge Diet: Low fat / Low cholesterol, 8 Cup Fluid Restriction and 2000 mg Sodium Diet Discharge Activity: Return to Normal Activity Call your doctor if you observe: Fever of 101 or Higher, Shortness of breath, Fainting spells and Chest pain Meaningful Use Info Meaningful Use Diagnoses (Choose all that apply): CHF CHF TUTU/ARB ordered at discharge?: Yes Documented LVEF (%): 60 Discharge Plan Admission Admit Date/Time: 09/21/22 18:51 Attending Provider: Kory Woo Primary Care Provider: Hoda Del Rosario Consulting Providers: Em Diamond ; Silvestre Suero ; Kamari Shi Discharge Orders/Prescriptions Prescriptions: New furosemide 40 mg Tablet 40 mg PO BIDLX Qty: 60 0RF potassium chloride [Klor-Con M20] 20 mEq Tablet,Er Particles/Crystals 20 meq PO BIDCM Qty: 30 0RF lisinopril 5 mg tablet 5 mg PO DAILY Qty: 60 0RF Continued aspirin 325 mg Tablet 325 mg PO DAILY acetaminophen 650 mg Tablet Extended Release 650 mg PO Q12H levothyroxine 50 mcg tablet 50 mcg PO DAILY Label Comments: TAKE 1 TABLET BY MOUTH ONCE DAILY ON AN EMPTY STOMACH Discontinued lisinopril-hydrochlorothiazide 10-12.5 mg tablet 1 tab PO QHS Label Comments: TAKE 1 TABLET BY MOUTH ONCE DAILY AT BEDTIME Referrals / Follow Up: Hoda Del Rosario MD [Primary Care Provider] - In 1 Week Disposition Disposition (needs filled in before D/C Order can be placed): Home, Self Care Charges/Coding Visit Charges Inpatient E&M: 64398 Disch Hosp >30min
--- NOTE | 2022-09-27 09:52 | CASEMGMT ---
WILVER WILLIS updated that patient qualifies for home oxygen at discharge. Script recieved. WILVER WILLIS in to discuss needs at discharge with patient. WILVER WILLIS reviewed DME agencies with patient, patient prefers [employer]. Patient states she is going to resume her outpatient therapy that was already setup. Patient denied further needs or questions at this time. WILVER WILLIS [place] [facility] [place] [facility] and arranged for [place] to patient's room.
[2022-09-27] MEDS: Potassium Chloride Oral Tablet 20 MEQ 60 MEQ PO (12:17)
[2022-09-27 13:08] LABS: ANTINUCLEAR ANTIBODIES DIRECT Positive (Negative); Anti-Centromere B Ab <0.2 AI (0.0-0.9); Anti-Chromatin <0.2 AI (0.0-0.9); Anti-Jo <0.2 AI (0.0-0.9); Anti-Scleroderma-70 AB <0.2 AI (0.0-0.9); Anti-dsDNA Ab <1 IU/mL (0-9); RNP Ab 1.1 AI (0.0-0.9); SJOGREN'S Anti-SS-A test < 0.2 AI (0.0-0.9); SJOGREN'S Anti-SS-B test < 0.2 AI (0.0-0.9); Smith Ab <0.2 AI (0.0-0.9)
[2022-09-27 16:10] LABS: CCP IgG Antibodies 11 units (0-19); Cytoplasmic Ab (C-ANCA) <1:20 titer (Neg:<1:20); Perinuclear Ab (P-ANCA) <1:20 titer (Neg:<1:20)
== END 2022-09-27 15:07 | disposition home or self-care (01) | DRG 291 ==
LOC: ED 16:44 → PCU 19:17
PROVIDERS: Hospitalist; Internal Medicine; Internal Medicine Critical Care Medicine; Admitting Provider Internal Medicine; Emergency Provider Student in an Organized Health Care Education/Training Program; PCP Family Medicine; Visit Provider Internal Medicine
DX: I11.0 Hypertensive heart disease with heart failure (principal); I50.31 Acute diastolic (congestive) heart failure; J96.01 Acute respiratory failure with hypoxia; G93.41 Metabolic encephalopathy; J96.02 Acute respiratory failure with hypercapnia; E87.29 Other acidosis; I27.20 Pulmonary hypertension, unspecified; E87.6 Hypokalemia; E03.9 Hypothyroidism, unspecified; R73.9 Hyperglycemia, unspecified; Z79.82 Long term (current) use of aspirin; Z96.641 Presence of right artificial hip joint
CPT/HCPCS: 36415; 36600; 71045; 71046; 71275; 80048; 80053; 80061; 81001; 82803; 83036; 83605; 83735; 83880; 84100; 84145; 84443; 84484; 85025; 85610; 85730; 86038; 86200; 86225; 86235; 86256; 86431; 87040; 87086; 87088; 87428; 87633; 93005; 93306; 94002; 94003; 94640; 94668; 94762; 97110; 97116; 97162; 97166; 97530; 99252; 99285; J7040; Q9957; Q9967; A4216; C8929; G0463; J1940; J2405

== ENCOUNTER → 2022-10-13 | Outpatient (CLI) | payer MEDICARE, SELFPAY ==
[2022-10-13 12:39] LABS: Anion Gap 7 (5-15); BUN 13 mg/dL (7-18); BUN/Creat Ratio 19.3 RATIO (10-20); Chloride 97 mmol/L (98-107); Creatinine, Serum 0.67 mg/dL (0.55-1.02); EST Glomerular Filtration Rate 93 mL/min (>60); Est Glom Filt Rate - Afr Amer 113 mL/min (>60); Glucose 130 mg/dL (74-106); Potassium 3.8 mmol/L (3.5-5.1); Sodium Level 137 mmol/L (136-145)
== END | disposition home or self-care (01) ==
PROVIDERS: PCP Family Medicine; Visit Provider Family Medicine
DX: I50.811 Acute right heart failure (principal)
CPT/HCPCS: 36415; 80048

== ENCOUNTER 2022-10-31 13:30 | Outpatient (RCR) | payer MEDICARE, SELFPAY ==
--- NOTE | 2022-08-28 16:42 | HP.PTEVAL_ITS ---
Patient's Visit Information TOMMY MENDEZ is a 66 year old F referred to Physical Therapy by Dr. Alphonse Santos MD with a diagnosis of UNILTAERL PRIMARY OSTEOARTHRITIS RIGHT HIP. Date of Evaluation: 08/28/22 Physical Therapist: Jairo Steward, PT, Cert MDT, OCS - Visit Plan Frequency: 2x /Week Duration: 10 WEEKS Plan: S/P FREDERICK using lateral approach on 08/15/22. LATERAL HIP PRECAUTIONS. * NO HIP ABDUCTION X5 WEEKS*. PT INTERVENTIONS AROM HIP/KNEE WITH NO HIP ABDUCTION FOR 5WEEKS ,GAIT TRAINING ,BALANCE PROGRAM AND STRENGTH HIP/KNEE AND ENDURANCE - Subjective This 66 y/o female presents to physical therapy with Right FREDERICK. Patient underwent s/p FREDERICK lateral approach on 08/15/[address] Santos [facility]. Patient d/c next day with WBAT with no hip abduction for 5 weeks. Patient has had pain decrease gait several months. Tried PT . Patient min . Denies paresthesia/tingling. RTD 29 of September . Patient lives one story home 3steps with rail. Tub/shower with shower seat. Patient intact. Patient has limitations with all functional activities and housework tasks. Patient goals to return to prior level of function. Patient surgery affects QOL and function. SOCIAL: . VOCATION: retired - Pain Right Hip Pain Intensity (Out of 10): 2 Pain Intensity Range: 10 - Objective POSTURE: mild forward posture. EDEMA: 1+ edema right leg. GAIT: ambulated with fww WBT RLE slow kristie with decrease stance time mild forward posture. BALANCE: fair+ with FWW. STAIRS: one step at with railings. AROM: supine knee flexion 95 degrees ,hip flexion 50 degrees ,hip abduction NT due to lateral approach. MMT: ( peak force) quads 0 ,hip flexion 0 ,hip abduction NT ,hamstrings 0 - Balance/Special Test Scores Lower Extremity Functional Score: 25 WOMAC Total Score: 24 WOMAC Percentatge: 75.0000 - Goals Goal 1:: Patient to be I with HEP for FREDERICK Goal Time Frame: 6-8 Weeks Goal 2:: Patient to ambulate with least restrictive device with improved quality of gait Goal Time Frame: 6-8 Weeks Goal 3:: Patient to improve peak force hip/quads/hamstrings by 10-15 to improve gait. Goal Time Frame: 6-8 Weeks Goal 4:: Patient to improve LFES by 10 -15 points to improve QOL and function. Goal Time Frame: 6-8 Weeks Goal 5:: Patient to improve WOMAC score by 10 points to improve QOL and function Goal Time Frame: 6-8 Weeks Goal 6:: Patient to improve TUG score by 15 sec < to improve gait Goal Time Frame: 6-8 Weeks - Rehabilitation Potential Physical Therapy Diagnosis: This patient underwent s/p FREDERICK with lateral approach with no hip abduction for 5 weeks with decrease ROM ,weakness ,decrease gait and balance ,endurance and stairs thus benefit from skilled PT Rehabilitation Potential: Good - Anticipated Interventions Patient/Client Instruction: Educate patient on: Condition, Plan of Care For the Purpose of:: To decrease pain, To increase ROM, To improve muscle performance and motor function, To improve ability to perform ADL's, To increase tolerance to activity/condition/position, To improve ability of physical actions for home/community/work/leisure, To improve gait and locomotor functions, To improve health of tissue, To decrease soft tissue restriction, To increase flexibility/ROM, To improve endurance, To improve balance, To improve tolerance to ADL's Therapeutic Exercise to Include: Strength training, Endurance training, Balance training, Gait and locomotor training, Passive ROM, Active ROM Comment: HIP/KNEE NO HIP ABD X 5WEEKS For the Purpose of:: To decrease pain, To decrease swelling/inflammation, To improve muscle performance and motor function, To improve ability to perform ADL's, To increase tolerance to activity/condition/position, To improve performance and independence with ADL's, To improve ability of physical actions for home/community/work/leisure, To improve gait and locomotor functions, To improve health of tissue, To decrease soft tissue restriction, To increase fle xibility/ROM, To improve tolerance to ADL's Thank you for the opportunity to evaluate your patient. For Medicare and Medicare HMO plans, please review the plan of care and approve it. It will need to be FAXED BACK to us at [phone] for Medicare purposes. For Medicare only, by signing this I certify the plan of care. Please let me know if there are questions or concerns regarding this plan of care. Physician Signature: Date:
--- NOTE | 2022-09-21 14:34 | HP.PTREVAL ---
Dr. Alphonse Santos MD, It has been my pleasure to treat TOMMY MENDEZ over the last 9 visits for UNILTAERL PRIMARY OSTEOARTHRITIS RIGHT HIP. Please see the progress note below for an update on the physical therapy plan of care! Subjective: Patient just feels tired. SOB and not feeling good. Discussed with patient call Objective/Function: POSTURE: mild forward posture. EDEMA: pitted edema . GAIT: ambulated with fww WBAT reciprocal pattern slow kristie with decrease stance time mild forward posture. Ambulated with QC with 2 point slow kristie .BALANCE: fair+ with FWW. STAIRS: one step at with railings. AROM: supine knee flexion 110 degrees ,hip flexion 90 degrees ,hip [id number] du. MMT: ( peak force) quads 12.2 ,hip flexion ,hip abduction 0 ,hamstrings 10.8. SOB with gait Sp02 99% Plan Plan: 08/15/22 FREDERICK-lateral approach. okay for hip abduction. PT interventions: AROM hip/knee with no hip abduction x5 weeks. Gait training, balance, aerobic endurance and strength of hip and knee. Balance/Gait/Functional tests - Balance/Special Test Scores Lower Extremity Functional Score: 29 Tug Test: 20-30sec.=variable mobility WOMAC Total Score: 24 WOMAC Percentage: 75.0000 Goals Goal 1:: Patient to be I with HEP for FREDERICK Goal Time Frame: 6-8 Weeks Goal Progress: Progressing Goal 2:: Patient to ambulate with least restrictive device with improved quality of gait Goal Time Frame: 6-8 Weeks Goal Progress: Progressing Goal 3:: Patient to improve peak force hip/quads/hamstrings by 10-15 to improve gait. Goal Time Frame: 6-8 Weeks Goal Progress: Progressing Goal 4:: Patient to improve LFES by 10 -15 points to improve QOL and function. Goal Time Frame: 6-8 Weeks Goal Progress: Progressing Goal 5:: Patient to improve WOMAC score by 10 points to improve QOL and function Goal Time Frame: 6-8 Weeks Goal Progress: Progressing Goal 6:: Patient to improve TUG score by 15 sec < to improve gait Goal Time Frame: 6-8 Weeks Anticipated Interventions Patient/Client Instruction: Educate patient on: Condition, Plan of Care For the Purpose of:: To decrease pain, To increase ROM, To improve muscle performance and motor function, To improve ability to perform ADL's, To increase tolerance to activity/condition/position, To improve ability of physical actions for home/community/work/leisure, To improve gait and locomotor functions, To improve health of tissue, To decrease soft tissue restriction, To increase flexibility/ROM, To improve endurance, To improve balance, To improve tolerance to ADL's Therapeutic Exercise to Include: Strength training, Endurance training, Balance training, Gait and locomotor training, Passive ROM, Active ROM Comment: HIP/KNEE NO HIP ABD X 5WEEKS For the Purpose of:: To decrease pain, To decrease swelling/inflammation, To improve muscle performance and motor function, To improve ability to perform ADL's, To increase tolerance to activity/condition/position, To improve performance and independence with ADL's, To improve ability of physical actions for home/community/work/leisure, To improve gait and locomotor functions, To improve health of tissue, To decrease soft tissue restriction, To increase flexibility/ROM, To improve tolerance to ADL's Please do not hesitate to contact me at [phone] by phone or if you have questions or concerns regarding this new plan of care! Sincerely, Jairo Steward, PT, Cert MDT, OCS
--- NOTE | 2022-10-31 14:00 | HP.PTDCSUM ---
It has been my pleasure to treat TOMMY MENDEZ referred by Dr. Alphonse Santos MD, with the diagnosis of UNILTAERL PRIMARY OSTEOARTHRITIS RIGHT HIP for a total of 13 visit(s). Discharge Date: 10/31/22 Please see the following information for a summary of their discharge status. Subjective: Ready for d/c ,patient want to do ex's at home Right Hip Pain Intensity (Out of 10): 0 % Improvement: 85 Objective/Function: POSTURE: mild forward posture. EDEMA: pitted edema . GAIT: ambulated with QC slow kristie step 2 point Ambulated with QC with 2 point slow kristie .BALANCE: fair+ with CANE. STAIRS: one step 12 at with railings. AROM: supine knee flexion 115degrees ,hip flexion 90 degrees ,hip [id number] . MMT: ( peak force) quads 34.7 ,hip flexion 16.5 ,hip abduction 0 ,hamstrings 26.8. SOB with gait Sp02 99%. Patient cont to have weakness in glut Medius stressed importance of increasing strength with ex's at home and use cane until get stronger Goal 1:: Patient to be I with HEP for FREDERICK Goal Progress: Progressing Goal 2:: Patient to ambulate with least restrictive device with improved quality of gait Goal Progress: Progressing Goal 3:: Patient to improve peak force hip/quads/hamstrings by 10-15 to improve gait. Goal Progress: Progressing Goal 4:: Patient to improve LFES by 10 -15 points to improve QOL and function. Goal Progress: Progressing Goal 5:: Patient to improve WOMAC score by 10 points to improve QOL and function Goal Progress: Progressing Goal 6:: Patient to improve TUG score by 15 sec < to improve gait Plan: D/C TO HEP Discharge Comments: HEP If there are questions or concerns regarding this patient's physical therapy, please feel free to call me at [phone]. Thank you for the referral of this patient. Sincerely, Jairo Steward, PT, Cert MDT, OCS Balance/Gait/Functional tests - Balance/Special Test Scores Lower Extremity Functional Score: 43 TUG Test Time Seconds: 11.6 Tug Test: <20 sec.=mostly independent WOMAC Total Score: 16 WOMAC Percentage: 83.3400
== END 2022-10-31 19:00 | disposition home or self-care (01) ==
LOC: PT 13:30
PROVIDERS: PCP Family Medicine; Referring Provider Orthopaedic Surgery; Visit Provider Orthopaedic Surgery
DX: M16.11 Unilateral primary osteoarthritis, right hip (principal)
CPT/HCPCS: 97110; 97116; 97162; 97530

== ENCOUNTER → 2022-11-03 | Outpatient (CLI) | payer MEDICARE, SELFPAY ==
--- NOTE | 2022-11-03 11:34 | RAD_ITS ---
HISTORY: Pneumonitis due to inhalation of food and vomit. TECHNIQUE: XR Chest 2 Views. COMPARISON: 09/26/2022. FINDINGS: CARDIOMEDIASTINAL BORDERS: Cardiac silhouette within normal limits in size. Mediastinal contour unchanged with calcification of the aorta. LUNGS: Mixed interstitial and alveolar opacities in the bilateral lungs, increased on the left. PLEURA: No pleural effusion or pneumothorax seen. OSSEOUS STRUCTURES: Degenerative change. RAD/Chest PA and Lateral IMPRESSION: Bilateral pneumonia or pneumonitis, increased on the left. Electronically Signed: Vivienne Park MD at 9:41 EDT ,
== END | disposition home or self-care (01) ==
LOC: MTRAD 11:33
PROVIDERS: PCP Family Medicine; Referring Provider Family Medicine; Visit Provider Family Medicine
DX: J69.0 Pneumonitis due to inhalation of food and vomit (principal)
CPT/HCPCS: 71046

== ENCOUNTER 2022-11-08 14:23 | Emergency (ER) | payer MEDICARE, SELFPAY ==
[2022-11-08 14:24] VITALS: BP 140/72; PULSE 117; RESP 18; TEMP 36.5; O2SAT 92
[2022-11-08 15:07] VITALS: BP 136/59; PULSE 117; RESP 20; O2SAT 96
[2022-11-08 15:09] VITALS: O2SAT 98
--- NOTE | 2022-11-08 15:16 | CT_ITS ---
STUDY: CTA CHEST REASON FOR EXAM: Female, 66 years old. pulmonary embolism RADIATION DOSAGE (If Supplied By Facility): CTDIvol = ( 13.14 ) mGy, DLP = ( 424.28 ) mGycm TECHNIQUE: The examination was performed with the intravenous administration of IV 100mL Isovue-370. Post-processing of the angiographic images was performed, with multiplanar reformation and 3D reconstruction. Individualized dose optimization techniques were used for this CT. COMPARISON: 09/21/2022 CT chest FINDINGS: Normal enhancement of the main pulmonary artery and right and left pulmonary arteries. Normal enhancement of the bilateral peripheral pulmonary arteries. There is no demonstrated pulmonary embolism. Normal thoracic aorta and visualized great vessels. There is no demonstrated aortic dissection. Normal heart and pericardium. Normal mediastinum. Normal hilar regions. Scattered mediastinal lymph nodes similar compared to prior exam. Normal visualized trachea and bronchi. The lungs are well expanded. Scattered prominent interstitial markings with mild areas of septal thickening throughout the lung parenchyma consistent with likely COPD related changes and interstitial edema. Mild scattered areas of likely alveolar edema are also noted. Normal pleura. Normal chest wall structures. Normal osseous structures. Normal visualized upper abdomen. CT/CTA Chest W/WO Contrast IMPRESSION: No evidence of pulmonary embolism or aortic dissection. COPD related changes with prominent interstitium consistent with underlying interstitial edema and scattered alveolar edema in the cardiogenic setting, clinically correlate. Electronically Signed: Gianni Hunter DO at 16:50 EDT ,
--- NOTE | 2022-11-08 15:16 | CT_ITS ---
STUDY: CT BRAIN WITHOUT CONTRAST REASON FOR EXAM: Female, 66 years old. confusion RADIATION DOSAGE (If Supplied By Facility): CTDIvol = ( 44.99 ) mGy, DLP = ( 762.36 ) mGycm TECHNIQUE: Transaxial CT imaging of the brain was performed without administration of intravenous contrast material. Individualized dose optimization techniques were used for this CT. COMPARISON: No relevant priors. FINDINGS: Normal soft tissue structures. Normal calvarium. Normal size ventricles and extra-axial spaces for the patient''s age. Normal white matter tracts of the cerebral hemispheres. Normal basal ganglia and thalami. Normal brainstem. Normal cerebellum. There is no intracranial hemorrhage. There are no findings of an acute ischemic infarction. Normal visualized paranasal sinuses. CT/Brain/Head without Contrast IMPRESSION: No evidence of acute intracranial bleed, mass or ischemia. Electronically Signed: Gianni Hunter DO at 16:46 EDT ,
--- NOTE | 2022-11-08 15:17 | EKG12_ITS ---
Test Reason : SOB Blood Pressure : / mmHG Vent. Rate : 111 BPM Atrial Rate : 111 BPM P-R Int : 160 ms QRS Dur : 074 ms QT Int : 340 ms P-R-T Axes : 039 -22 008 degrees QTc Int : 462 ms Sinus tachycardia Inferior infarct , age undetermined Anterior infarct , age undetermined Abnormal ECG Confirmed by THEE VICK, PATRICIO ([id number]), newspaper editor PHUC CARTER ([id number]) on 11/10/2022 10:18:38 AM Referred By: Confirmed By:PATRICIO KINGSTON MD
--- NOTE | 2022-11-08 15:18 | ED.VIS.DYS ---
HPI History of Present Illness Chief Complaint: Shortness of Breath Informant: patient and other ([employer]) Narrative Narrative: Patient presents from pulmonary office secondary to hypoxia. Patient was in the office today for routine follow-up. She was recently admitted following a hip surgery where she had fluid overload and congestive heart failure along with hypercarbia. Patient was discharged on 3 L of oxygen. It is reported that the patient's oxygen saturation was 68% on 3 L in the office. She denied any complaints. She has no chest pain and does not feel short of breath. She does report a cough for the past week and a half that is improving. She is had no fevers or chills. [facility] Medical History Acute on chronic respiratory failure with hypoxia and hypercapnia Cataract HTN (hypertension) Hypothyroid Home Medications acetaminophen 650 mg tablet,extended release 650 mg PO Q12H PAIN 09/21/22 [History Last Taken 09/21/22] aspirin 325 mg tablet 325 mg PO DAILY HEART HEALTH 09/21/22 [History Last Taken 09/21/22] levothyroxine 50 mcg tablet 50 mcg PO DAILY THYROID 09/21/22 [History Last Taken 09/21/22] furosemide 40 mg tablet 40 mg PO BIDLX #60 tabs 09/27/22 [Rx Last Taken Unknown] lisinopril 5 mg tablet 5 mg PO DAILY #60 tabs 09/27/22 [Rx Last Taken Unknown] potassium chloride 20 mEq tablet,extended release(part/cryst) (Klor-Con M) 20 meq PO BIDCM #30 tabs 09/27/22 [Rx Last Taken Unknown] furosemide 40 mg tablet (Lasix) 40 mg PO BID #30 tabs 11/08/22 [Rx Last Taken Unknown] Allergy/AdvReac Type Severity Reaction Status Date / Time Penicillins Allergy Hives Verified 11/08/22 14:27 Surgical History History of right hip replacement Social History household members: spouse housing: house Smoking Status: Former smoker how long ago did patient quit smokin plus years ago alcohol intake: never substance use type: does not use ROS ROS ED Constitutional Constitutional ED: Denies chills or fever(s) Eyes Eyes: Denies change in vision or discharge from eye(s) ENT ENT ED: Denies discharge from eye(s), rhinorrhea or sore throat Cardiovascular Cardiovascular: Denies chest pain or palpitations Respiratory/Chest Respiratory/Chest: Reports cough; Denies dyspnea Gastrointestinal Gastrointestinal: Denies abdominal pain, nausea or vomiting Genitourinary Genitourinary ED: Denies dysuria Musculoskeletal Musculoskeletal: Denies back pain or extremity pain Integumentary Denies Abrasions or rash Neurologic Neurologic: Denies headache(s) or weakness Psychiatric Psychiatric: Denies anxiety or depression Allergic/Immunologic Allergic/Immunologic ED: Denies lip swelling or urticaria EXAM Physical Exam Const Vital Signs: 11/08/22 14:24 11/08/22 15:07 11/08/22 15:09 Temperature 97.7 F L Temperature Source Temporal Pulse Rate 117 H 117 H Respiratory Rate 18 20 H Respiratory Effort Normal Non-Labored Respiratory Depth Normal Respiratory Pattern Normal Blood Pressure 140/72 H 136/59 H Blood Pressure Mean 94 84 Pulse Ox 92 96 Oxygen Delivery Method Nasal Cannula Nasal Cannula Nasal Cannula Oxygen Flow Rate (L/min) 3 3 3 11/08/22 15:27 Temperature 97.8 F Temperature Source Temporal Pulse Rate 114 H Respiratory Rate 22 H Respiratory Effort Respiratory Depth Respiratory Pattern Blood Pressure 146/70 H Blood Pressure Mean 95 Pulse Ox 99 Oxygen Delivery Method Nasal Cannula Oxygen Flow Rate (L/min) 3 Positive well nourished and well developed General Appearance ED: well developed HEENT Reports normocephalic and head/scalp atraumatic Eyes PERRL and EOMs intact bilaterally Neck supple Chest Wall inspection of chest normal and palpation of chest normal Resp normal respiratory effort Resp Narrative: Crackles bilateral bases, left greater than right. Cardio regular rate and regular rhythm GI normal to inspection, nondistended, normoactive bowel sounds Palpation: soft Back/Spine no CVA tenderness Extremity Extremity Narrative: 1-2+ bilateral lower extremity edema, symmetric. Neuro oriented x3 and no sensory deficits noted Sensorium / Orientation: alert Motor Exam: strength 5/5 throughout Psych mental status grossly normal Skin no rashes or lesions noted MDM MDM MDM Narrative Medical decision making narrative: Patient is placed on glass polisher. EKG obtained to evaluate for cardiac arrhythmia/ischemia. Labwork obtained to evaluate for leukocytosis, anemia, and electrolyte derangement. CT of the head done per Dr. Demarco's recommendation to ensure no central cause of disordered breathing. CTA of the chest obtained to evaluate for PE. Lab Data Attestation: I reviewed the patient's lab results. Labs: Laboratory Results - last 24 hr 11/08/22 11/08/22 11/08/22 15:35 15:35 15:35 WBC 8.7 RBC 4.91 Hgb 14.0 Hct 44.4 MCV 90.4 MCH 28.5 MCHC 31.5 L RDW Std Deviation 57.4 H RDW Coeff of [place] 17.1 H Plt Count 304 MPV 8.6 Immature Gran % (Auto) 0.200 Neut % (Auto) 68.3 Lymph % (Auto) 24.5 [place] % (Auto) 5.2 Eos % (Auto) 1.6 Baso % (Auto) 0.2 Absolute Neuts (auto) 5.9 Absolute Lymphs (auto) 2.12 Nucleated RBC % 0 D-Dimer Quant (PE/DVT) 2.16 H* Sodium 137 Potassium 3.7 Chloride 95 L Carbon Dioxide 37.0 H Anion Gap 5 BUN 10 Creatinine 0.60 Estim Creat Clear Calc 41.76 Est GFR (MDRD) Af Amer 128 Est GFR (MDRD) Non-Af 106 BUN/Creatinine Ratio 16.6 Glucose 114 H Calcium 10.3 H Troponin I High Sens 8 B-Natriuretic Peptide 11/08/22 15:35 WBC RBC Hgb Hct MCV MCH MCHC RDW Std Deviation RDW Coeff of [place] Plt Count MPV Immature Gran % (Auto) Neut % (Auto) Lymph % (Auto) [place] % (Auto) Eos % (Auto) Baso % (Auto) Absolute Neuts (auto) Absolute Lymphs (auto) Nucleated RBC % D-Dimer Quant (PE/DVT) Sodium Potassium Chloride Carbon Dioxide Anion Gap BUN Creatinine Estim Creat Clear Calc Est GFR (MDRD) Af Amer Est GFR (MDRD) Non-Af BUN/Creatinine Ratio Glucose Calcium Troponin I High Sens B-Natriuretic Peptide 11.7 ABG Data ABG results: ABG 11/08/22 15:49 Specimen Type ART Sample Site L Brach pH 7.44 Bicarbonate Actual 37.6 H Total CO2 39 Base Excess 13 H O2 Saturation 96 ABG pCO2 55.9 H ABG pO2 84 Leonard Test Positive O2 Delivery Device Cannula Liter Flow 3.0 Radiography Diagnostic Testing: Clinical Impression(s) from Imaging Studies Brain CT 11/08/22 15:16 IMPRESSION: No evidence of acute intracranial bleed, mass or ischemia. Electronically Signed: Gianni HunterDO at 16:46 EDT , Chest CTA 11/08/22 15:16 IMPRESSION: No evidence of pulmonary embolism or aortic dissection. COPD related changes with prominent interstitium consistent with underlying interstitial edema and scattered alveolar edema in the cardiogenic setting, clinically correlate. Electronically Signed: Gianni HunterDO at 16:50 EDT , EKG Initial EKG: Attestation: I personally reviewed and interpreted this EKG as follows: Interpretation: Sinus Tachycardia (Sinus tachycardia at 111 with no acute ischemia.) Differential Diagnosis Chest pain/SOB: pulmonary embolism Reason(s) PE less likely: Positive for Other (Negative CT of the chest.), ACS ACS: Positive for no evidence of ACS based on cardiac biomarkers and EKG without ischemia, pneumothorax Reason(s) pneumothorax less likely: Positive for bilateral breath sounds and JAIL KEEPER withhout PTX and pneumonia Reason(s) pneumonia less likely: Positive for no infiltrate on CXR Treatment and Re-Evaluation :: CBC was normal white count and hemoglobin. Chemistry studies unremarkable. Troponin is normal at 8. D-dimer slightly elevated at 2.16. BNP is normal at 11.7. CT scan of the head is unremarkable. CTA of the chest reveals no evidence of PE or dissection. COPD related changes are noted along with some underlying interstitial edema. Patient's O2 sats have remained in the high 90s on 3 L here. She is ambulated to the restroom and back. With ambulation she drops to 81% but quickly recovers at rest. She states this is similar to what her readings are at home. I spoke with Dr. Shi, covering pulmonary call tonight. He agrees the patient can increase her Lasix the next 4 days and monitor her O2 sats at home. He did recommend having the patient increase her nasal cannula to 5 L when she is up ambulating. Patient is comfortable this plan. She will continue to monitor her O2 sats and understands that if her oxygen level does not stay above 90% she needs to return to the hospital. Discharge Plan Triage Chief Complaint: Shortness of Breath ED Provider: Eva Barlow Dx/Rx/DC Orders Clinical Impression: CHF (congestive heart failure) Instructions: ED Heart Failure, Congestive (CHF) Prescriptions: New furosemide [Lasix] 40 mg tablet 40 mg PO BID Qty: 30 0RF Rx Instructions: For the next 4 days, double your Lasix to 80mg twice daily, then revert back to 40mg twice a day. No Action aspirin 325 mg Tablet 325 mg PO DAILY acetaminophen 650 mg Tablet Extended Release 650 mg PO Q12H levothyroxine 50 mcg tablet 50 mcg PO DAILY Label Comments: TAKE 1 TABLET BY MOUTH ONCE DAILY ON AN EMPTY STOMACH furosemide 40 mg Tablet 40 mg PO BIDLX Qty: 60 0RF potassium chloride [Klor-Con M20] 20 mEq Tablet,Er Particles/Crystals 20 meq PO BIDCM Qty: 30 0RF lisinopril 5 mg tablet 5 mg PO DAILY Qty: 60 0RF Primary Care Provider: Hoda Del Rosario Referrals: Hoda Del Rosario MD [Primary Care Provider] - Lobo Rangel MD [Med Staff - Active Staff] - 1-2 Weeks Disposition Disposition: Home, Self Care
[2022-11-08 15:27] VITALS: BP 146/70; PULSE 114; RESP 22; TEMP 36.6; O2SAT 99
[2022-11-08 15:47] LABS: Absolute Lymphocyte Count 2.12 X10^3/uL (0.83-4.51); Absolute Neutrophil Count 5.9 X10^3/uL (2.0-7.7); Basophil# 0.02 X10^3/uL; Basophil% 0.2 % (0-1); Eosinophil# 0.14 X10^3/uL; Eosinophils% 1.6 % (0-5); Hematocrit 44.4 % (37-47); Lymphocyte # 2.12 X10^3/ul (0.83-4.51); Lymphocyte % 24.5 % (19-41); Mean Corp Hgb Conc 31.5 g/dL (32-36); Mean Corpuscular Hgb 28.5 pg (27.0-32.0); Mean Corpuscular Volume 90.4 fL (81-99); Mean Platelet Vol. 8.6 fl (6.2-12.0); Monocyte# 0.45 X10^3/uL; Monocyte% 5.2 % (0-10); NRBC Flagged by Analyzer 0 % (0-5); Neutrophil % 68.3 % (47-70); Platelet Count 304 K/mm3 (150-450); RBC Distribution Width CV 17.1 % (11.6-14.6); RBC Distribution Width SD 57.4 fl (35.1-43.9); Red Blood Count 4.91 M/mm3 (4.2-5.4); White Blood Count 8.7 K/mm3 (4.4-11.0)
[2022-11-08 15:52] LABS: Allen Test Positive; Base Excess 13 mmol/L (-2 to +2); Bicarbonate 37.6 mmol/L (22-26); Blood Gas Specimen Type ART; O2 Delivery Device Cannula; PO2 84 mmHG (75-100); SITE L Brach; SO2 96 % (95-99); Total Carbon Dioxide 39 mmol/L; pCO2 55.9 mmHg (35-45); pH 7.44 (7.35-7.45)
[2022-11-08 16:01] LABS: BNP,B-Type NATRIURETIC PEPTIDE 11.7 pg/mL (0-100)
[2022-11-08 16:02] LABS: D-Dimer Quantitative (DVT/PE) 2.16 FEU/ug/m (0.27-0.49)
[2022-11-08 16:06] LABS: Anion Gap 5 (5-15); BUN 10 mg/dL (7-18); BUN/Creat Ratio 16.6 RATIO (10-20); Calcium,Total 10.3 mg/dL (8.5-10.1); Chloride 95 mmol/L (98-107); EST Glomerular Filtration Rate 106 mL/min (>60); Est Glom Filt Rate - Afr Amer 128 mL/min (>60); Estimated Creatinine Clearance 41.76 ml/min; Glucose 114 mg/dL (74-106); Potassium 3.7 mmol/L (3.5-5.1); Sodium Level 137 mmol/L (136-145); Troponin-I HS 8 pg/mL (3.0-54.0)
[2022-11-08 17:51] VITALS: O2SAT 97
[2022-11-08 19:25] VITALS: PULSE 103; RESP 20; O2SAT 97
== END 2022-11-08 19:25 | disposition home or self-care (01) ==
PROVIDERS: Emergency Provider Emergency Medicine; PCP Family Medicine; Visit Provider Emergency Medicine
DX: I11.0 Hypertensive heart disease with heart failure (principal); I50.9 Heart failure, unspecified; Z87.891 Personal history of nicotine dependence; E03.9 Hypothyroidism, unspecified; Z79.899 Other long term (current) drug therapy; Z79.82 Long term (current) use of aspirin; Z96.641 Presence of right artificial hip joint
CPT/HCPCS: 36600; 70450; 71275; 80048; 82803; 83880; 84484; 85025; 85379; 93005; 99284; Q9967; A4216

== ENCOUNTER → 2022-12-04 | Outpatient (CLI) | payer MEDICARE, SELFPAY ==
--- NOTE | 2022-12-04 16:35 | RAD_ITS ---
EXAM: XR CHEST, 2 VIEWS CLINICAL INDICATION: chf TECHNIQUE: Frontal and lateral views of the chest. COMPARISON: 11/13/2022 and 09/21/2022. FINDINGS: LUNGS AND PLEURAL SPACES: Persistent bilateral interstitial disease likely chronic. No pneumothorax. No effusion. HEART: Unremarkable. Cardiac silhouette not enlarged. MEDIASTINUM: Central airways and mediastinal contour are unremarkable. BONES/JOINTS: Unremarkable. SOFT TISSUES: Unremarkable. RAD/Chest PA and Lateral IMPRESSION: Persistent bilateral interstitial disease likely chronic. Electronically Signed: Bertin Vaca MD at 0:25 EDT ,
[2022-12-04 17:58] LABS: Anion Gap 5 (5-15); BUN 10 mg/dL (7-18); BUN/Creat Ratio 15.8 RATIO (10-20); Calcium,Total 9.9 mg/dL (8.5-10.1); Chloride 96 mmol/L (98-107); Creatinine, Serum 0.63 mg/dL (0.55-1.02); EST Glomerular Filtration Rate 100 mL/min (>60); Est Glom Filt Rate - Afr Amer 121 mL/min (>60); Glucose 123 mg/dL (74-106); Potassium 3.3 mmol/L (3.5-5.1); Sodium Level 136 mmol/L (136-145)
== END | disposition home or self-care (01) ==
LOC: LAB 15:59
PROVIDERS: PCP Family Medicine; Visit Provider Internal Medicine
DX: I50.9 Heart failure, unspecified (principal)
CPT/HCPCS: 36415; 71046; 80048

== ENCOUNTER → 2023-01-01 | Outpatient (CLI) | payer MEDICARE, SELFPAY ==
--- NOTE | 2023-01-02 08:08 | PFT ---
INTRODUCTION: The patient is a 67-year-old female who presents for pulmonary function studies secondary to a diagnosis of congestive heart failure. Respiratory therapy reported good patient effort. Bronchodilators were used during testing. INTERPRETATION: Forced expiration spirometry demonstrates no evidence of a large airways obstructive ventilatory defect. There was no significant response to aerosolized bronchodilators. Spirograms are of good quality and plateau normally. Body plethysmography was performed and revealed a decreased TLC to 2.16 L, 47% of predicted, indicative of a severe restrictive ventilatory impairment. Diffusing capacity by single breath CO is reduced at 30% of predicted. IMPRESSION: Severe restrictive ventilatory impairment with symmetric reduction in diffusing capacity.
== END | disposition home or self-care (01) ==
LOC: PSN 10:30
PROVIDERS: PCP Family Medicine; Referring Provider Internal Medicine; Visit Provider Internal Medicine
DX: I50.9 Heart failure, unspecified (principal); R93.89 Abnormal findings on diagnostic imaging of other specified body structures
CPT/HCPCS: 94060; 94726; 94729

== ENCOUNTER 2023-01-09 08:01 | Day surgery (SDC) | payer MEDICARE, SELFPAY ==
[2023-01-09] VITALS (7 sets, daily range): BP systolic 103–125; BP diastolic 62–83; PULSE 93–107; RESP 18–24; TEMP 36.3–37.6; O2SAT 96–100; BMI 28.0
[2023-01-09] MEDS: Lactated Ringers 1,000 ML 15 ML IV (08:26)
--- NOTE | 2023-01-09 08:54 | PCM.HP.BLA ---
History and Physical Date of Admission: 01/09/23 Intake Vital Signs 11/08/2313:24 Height 5 ft 1 in Intake Visit Reasons: POSITIVE COLOGUARD Chief Complaint: SOB x2 weeks Allergies Penicillins Allergy (Verified 11/08/22 14:27) Hives [facility] Medical History Acute on chronic respiratory failure with hypoxia and hypercapnia Cataract HTN (hypertension) Hypothyroid Surgical History History of right hip replacement Social History household members: spouse housing: house Smoking Status: Former smoker how long ago did patient quit smokin plus years ago alcohol intake: never substance use type: does not use HPI HPI HPI: Patient is here due to positive Cologuard. Patient denies any gross blood in her stool or abdominal pain. She says her last colonoscopy was 10 years ago. Patient is also having difficulty with her respiratory status. She is on 3 L of supplemental oxygen and still maintains her oxygenation only in the 80s. ROS General General: Yes fatigue; No appetite HEENT HEENT: No eye injury Musc Musculoskeletal: No back problems Cardio Cardiovascular: No murmur Exam Const General: cooperative Orientation: alert and oriented x3 HENMT Head: normal to inspection Neck Neck: normal visual inspection and full ROM Chest Chest palpation & inspection: normal inspection of the chest Resp Effort & Inspection: labored Cardio Rate: regular rate Rhythm: regular rhythm GI Inspection: non-distended Palpation: soft and nontender Skin General: no rashes or lesions noted Neuro General: patient alert and patient oriented x3 Extrem General: full ROM Psych Appearance: grossly normal Mental Status: mental status grossly normal Assessment and Plan Assessment and Plan (1) Positive colorectal cancer screening using Cologuard test: Status: Acute Plan: The patient has positive Cologuard and requires colonoscopy but she is still hypoxic on supplemental oxygen. Once she can have her respiratory status improved I can perform her colonoscopy. I explained endoscopy in detail to the patient. I explained the risks including but not limited to stroke or heart attack with anesthesia, perforation of the GI tract, bleeding, infection. I explained that any of these could necessitate further emergency surgery. The patient understands and all questions were answered sufficiently. The patient wishes to proceed with procedure. Amol Jones MD Pager: [facility] [address] [place] [address] [address] [place] [address] Office: I have examined the patient and the H&P has been reviewed. There are no clinical changes since date of exam. The patient was cleared for her procedure by pulmonology.
--- NOTE | 2023-01-09 09:22 | OP.CCLET_ITS ---
01/09/2023 Hoda Del Rosario [place] [id number] [place] [address] Re : Colonoscopy procedure for Makenna Andre Dear Dr. Del Rosario This procedure was performed on Monday, January 09, 2023. My impressions and recommendations are as follows: Impressions : - The entire examined colon is normal on direct and retroflexion views. - Diverticulosis in the sigmoid colon. - No specimens collected. Recommendations : - Discharge patient to home. - Resume previous diet. - Continue present medications. - Repeat colonoscopy in 10 years for screening purposes. My findings are described in the full procedure note, which is enclosed. If I can be of further assistance, please feel free to contact me at Doctor phone number(s): , Work: . Sincerely, Amol Jones MD 01/09/2023 9:22:00 AM This report has been signed electronically.
--- NOTE | 2023-01-09 09:22 | OP.COLON_ITS ---
Patient Name: Makenna Andre Procedure Date: 01/09/2023 9:03 AM Date of : 1955 Age: 67 Procedure: Colonoscopy Indications: Positive Cologuard test Providers: Amol Jones MD Referring MD: Amol Jones MD Medicines: Monitored Anesthesia Care Patient Profile: Last Colonoscopy: several years ago. Complications: No immediate complications. Estimated blood loss: None. Procedure: Pre-Anesthesia Assessment: - Prior to the procedure, a History and Physical was performed, and patient medications and allergies were reviewed. The patient's tolerance of previous anesthesia was also reviewed. The risks and benefits of the procedure and the sedation options and risks were discussed with the patient. All questions were answered, and informed consent was obtained. Prior Anticoagulants: The patient has taken no anticoagulant or antiplatelet agents. After reviewing the risks and benefits, the patient was deemed in satisfactory condition to undergo the procedure. After I obtained informed consent, the scope was passed under direct vision. Throughout the procedure, the patient's blood pressure, pulse, and oxygen saturations were monitored continuously. The colonoscope was introduced through the anus and advanced to the cecum, identified by appendiceal orifice and ileocecal valve. The colonoscopy was performed without difficulty. The patient tolerated the procedure well. The quality of the bowel preparation was good. The ileocecal valve, appendiceal orifice, and rectum were photographed. Scope In: 9:07:33 AM Scope Withdrawal Time 0 hours 4 minutes 49 seconds Scope Out: 9:18:52 AM Total Procedure Duration Time 0 hours 11 minutes 19 seconds Findings: The entire examined colon appeared normal on direct and retroflexion views. Multiple small-mouthed diverticula were found in the sigmoid colon. Impression: - The entire examined colon is normal on direct and retroflexion views. - Diverticulosis in the sigmoid colon. - No specimens collected. Recommendation: - Discharge patient to home. - Resume previous diet. - Continue present medications. - Repeat colonoscopy in 10 years for screening purposes. Procedure Code(s): --- Professional --- 76663, Colonoscopy, flexible; diagnostic, including collection of specimen(s) by brushing or washing, when performed (separate procedure) Diagnosis Code(s): --- Professional --- R19.5, Other fecal abnormalities K57.30, Diverticulosis of large intestine without perforation or abscess without bleeding CPT copyright 2021 [employer]. All rights reserved. The codes documented in this report are preliminary and upon chief legal officer review may be revised to meet current compliance requirements. Amol Jones MD 01/09/2023 9:22:00 AM This report has been signed electronically. Number of Addenda: 0 Note Initiated On: 01/09/2023 9:03 AM
== END 2023-01-09 10:00 | disposition home or self-care (01) ==
LOC: EN 08:03 → AC 08:12
PROVIDERS: PCP Family Medicine; Referring Provider Family Medicine; Visit Provider Surgery
PROC: 0DJD8ZZ Inspection of Lower Intestinal Tract, Via Natural or Artificial Opening Endoscopic (ICD-10-PCS; CPT 45378; principal; 2023-01-09 09:10)
DX: K57.30 Diverticulosis of large intestine without perforation or abscess without bleeding (principal); I10 Essential (primary) hypertension; Z87.891 Personal history of nicotine dependence; R19.5 Other fecal abnormalities; E03.9 Hypothyroidism, unspecified
CPT/HCPCS: 45378; J7120; J2405

== ENCOUNTER 2023-01-16 20:00 | Outpatient (CLI) | payer MEDICARE, SELFPAY | END 2023-01-16 23:59 | disposition home or self-care (01) | LOC: SL 20:28 | PROVIDERS: PCP Family Medicine; Referring Provider Nurse Practitioner Acute Care; Visit Provider Nurse Practitioner Acute Care | DX: G47.33 Obstructive sleep apnea (adult) (pediatric) (principal); G47.10 Hypersomnia, unspecified | CPT/HCPCS: 95810; 95811 ==

== ENCOUNTER → 2023-01-30 | Outpatient (CLI) | payer MEDICARE, SELFPAY | END | disposition home or self-care (01) | LOC: SL 10:51 | PROVIDERS: PCP Family Medicine; Visit Provider Nurse Practitioner Acute Care | DX: G47.33 Obstructive sleep apnea (adult) (pediatric) (principal) ==

== ENCOUNTER → 2023-02-22 | Outpatient (CLI) | payer MEDICARE, SELFPAY ==
--- NOTE | 2023-02-22 13:54 | STRESSREP ---
Stress Test Report Date: 02/22/2023 Procedure: Pharmacologic stress nuclear imaging study Indications: Dyspnea on exertion Consent: Per the patient Procedure: The patient underwent pharmacologic (Regadenoson 0.4mg ) evaluation with a peak heart rate of 106 beats per minute (69%predicted maximal heart rate) and a peak blood pressure of 136/68 mmHg. The baseline ECG demonstrated sinus rhythm. The peak pharmacologic ECG demonstrated no ischemic changes. There were no cardiac dysrhythmias pretest, during pharmacologic infusion, or recovery. There was no complaint of chest discomfort during pharmacologic infusion or recovery. The patient was injected with 11.2 millicuries of technetium 99m Cardiolite and subsequently rest SPECT Cardiolite nuclear imaging was obtained in the horizontal long, vertical long, and short axis views. The patient underwent pharmacologic (Regadenoson) evaluation. The patient was injected with 36.0 millicuries of technetium 99m Cardiolite and subsequently stress SPECT Cardiolite nuclear imaging was obtained in the horizontal long, vertical long, and short axis views. A gated Cardiolite study at peak stress was obtained. The examination was stopped secondary to completion of protocol. Rest and stress SPECT Cardiolite nuclear imaging status post realignment, normalization, and attenuation correction demonstrate a small sized apical and septal reversible perfusion defect of mild intensity suggestive of ischemia. There is end systolic thickening and brightening. The gated Cardiolite study demonstrates myocardial thickening and inward wall motion. The reported LVEF is 89%. Impression: 1. Pharmacologic (Regadenoson) evaluation 2. Peak pharmacologic ECG with no ischemic changes. 3. There were no cardiac dysrhythmias pretest, during pharmacologic infusion, or recovery. 5. Small apical and septal reversible perfusion defect suggestive of mild ischemia. 6. The gated Cardiolite study reports an LVEF of 89%. This note was generated with [employer] software. It may contain incorrect words, spelling, and punctuation that were not noted in checking the note before signing.
== END | disposition home or self-care (01) ==
PROVIDERS: PCP Family Medicine; Referring Provider Internal Medicine Cardiovascular Disease; Visit Provider Internal Medicine Cardiovascular Disease
DX: I11.0 Hypertensive heart disease with heart failure (principal); I50.9 Heart failure, unspecified; R06.09 Other forms of dyspnea; J98.4 Other disorders of lung
CPT/HCPCS: 78452; 93017; A9500; A4216; J2785

== ENCOUNTER 2023-04-16 08:18 | Day surgery (SDC) | payer MEDICARE, SELFPAY ==
[2023-02-27 15:15] LABS: Absolute Lymphocyte Count 3.31 X10^3/uL (0.83-4.51); Absolute Neutrophil Count 4.9 X10^3/uL (2.0-7.7); Basophil# 0.06 X10^3/uL; Basophil% 0.6 % (0-1); Eosinophil# 0.32 X10^3/uL; Eosinophils% 3.4 % (0-5); Hematocrit 41.4 % (37-47); Hemoglobin 12.9 g/dL (12.0-15.0); Lymphocyte # 3.31 X10^3/ul (0.83-4.51); Lymphocyte % 35.6 % (19-41); Mean Corp Hgb Conc 31.2 g/dL (32-36); Mean Corpuscular Hgb 30.4 pg (27.0-32.0); Mean Corpuscular Volume 97.4 fL (81-99); Mean Platelet Vol. 9.3 fl (6.2-12.0); Monocyte# 0.75 X10^3/uL; Monocyte% 8.1 % (0-10); NRBC Flagged by Analyzer 0 % (0-5); Neutrophil # 4.85 X10^3/uL (2.7-7.7); Neutrophil % 52.1 % (47-70); Platelet Count 331 K/mm3 (150-450); RBC Distribution Width CV 13.8 % (11.6-14.6); RBC Distribution Width SD 48.9 fl (35.1-43.9); Red Blood Count 4.25 M/mm3 (4.2-5.4); White Blood Count 9.3 K/mm3 (4.4-11.0)
[2023-02-27 16:29] LABS: Anion Gap 4 (5-15); BUN 12 mg/dL (7-18); BUN/Creat Ratio 15.8 RATIO (10-20); Calcium,Total 9.8 mg/dL (8.5-10.1); Chloride 101 mmol/L (98-107); Creatinine, Serum 0.76 mg/dL (0.55-1.02); EST Glomerular Filtration Rate 81 mL/min (>60); Est Glom Filt Rate - Afr Amer 97 mL/min (>60); Glucose 112 mg/dL (74-106); Potassium 4.1 mmol/L (3.5-5.1); Sodium Level 138 mmol/L (136-145)
--- NOTE | 2023-03-16 09:27 | PCM.HP.BLA ---
History and Physical Date of Admission: 03/21/23 This is a 67-year-old lady who presents today for cardiac catheterization, following an abnormal stress test. She has a past medical history significant for hypertension. According to her, earlier this year she had a bout of pneumonia. Ever since then, she has been having shortness of breath. She had a hospitalization back in August of this year. She was diagnosed with congestive heart failure. Echocardiogram was done. Normal left ventricular systolic function was noted. No evidence of diastolic dysfunction was noted. Right heart was noted to be dilated with impaired right ventricular systolic pressure. Pulmonary artery pressures were noted to be 60 mmHg. Patient has had PFTs done recently. These showed primarily restrictive defect with impaired DLCO. She has been put on ambulatory oxygen therapy. Also diagnosed with sleep apnea and has recently started using CPAP. Patient denies any chest pains either at rest or with exertion. She does get short of breath with mild to moderate exertion. Denies any orthopnea. No PND. No recent ankle edema. Denies any palpitations. Intake Vital Signs SEE EMR Allergies SEE EMR Medications SEE EMR Ejection fraction %: 60 to 64 PFSH Medical History Arthritis Chronic respiratory failure with hypoxia Essential (primary) hypertension History of edema Obesity On home oxygen therapy Pneumonia Shortness of breath on exertion Surgical History History of excision of lesion History of right hip replacement Hx of left cataract extraction Hx of right cataract extraction Hx of tonsillectomy Family History Father , 53 CVA (cerebral vascular accident) CAD (coronary artery disease) Myocardial infarctionBrother Myocardial infarction CAD (coronary artery disease)Brother CAD (coronary artery disease) stentBrother CAD (coronary artery disease) stent Social History household members: spouse housing: house Smoking Status: Former smoker how long ago did patient quit smokin plus years ago alcohol intake: current alcohol intake frequency: holidays/special occasions only substance use type: does not use caffeine: Yes Type: carbonated beverages Number of servings: 4 and coffee ROS Const Const: Positive for difficulty sleeping (new cpap); Negative for fatigue, weakness, headache(s), frequent falls or excessive sweating Eyes Eyes: Negative for loss of peripheral vision, transient loss of vision, blurry vision, double vision or tunnel vision ENT ENT: Negative for headache(s), dizziness, Nosebleed/epistaxis or balance problems Cardio Chest Pain: No Palpitations: No Edema: None Muscle aches with walking: None Resp Respiratory: Positive for SOB with activity; Negative for SOB at rest, SOB orthopnea\SOB lying down, Cough or paroxysmal nocturnal dyspnea GI GI: Negative nausea, vomiting, heartburn or black,tarry stools : Positive for frequent nighttime urination/ nocturia; Negative for hematuria Musc Musc: Negative for muscle aches/ myalgia, muscle weakness, joint pain or balance problems Skin Skin: Negative non-healing lesions, rash or unusual bruising Neuro Neuro: Negative for dizziness, lightheadedness, near syncope, syncope, frequent falls, headache(s), weakness, blurry vision, double vision or lack of coordination Sacha Hematologic/Lymphatic: Negative for easy bleeding or easy bruising Endo Endo: Negative for fatigue, excessive sweating or increased thirst/drinking Psych Psych: Negative for anxiety or depression Allergy Allergy/Immunology: Negative for hives and Negative for rash Cardiology Exam Const Appearance: comfortable and no acute distress Nutritional Appearance: well nourished Neck Neck: no JVD Carotids: Negative bruit Chest Auscultation: Bilateral: Clear to Auscultation Cardio Rate: regular rate Rhythm: regular rhythm Heart sounds: S1 normal and S2 normal Neuro General: patient alert, patient awake and patient oriented x3 Extremities Lower Extremity Edema: None: Bilateral Supplemental Info Supplemental Information Stress test 02/22/2023: Procedure: Pharmacologic stress nuclear imaging study Indications: Dyspnea on exertion Consent: Per the patient Procedure: The patient underwent pharmacologic (Regadenoson 0.4mg ) evaluation with a peak heart rate of 106 beats per minute (69%predicted maximal heart rate) and a peak blood pressure of 136/68 mmHg. The baseline ECG demonstrated sinus rhythm. The peak pharmacologic ECG demonstrated no ischemic changes. There were no cardiac dysrhythmias pretest, during pharmacologic infusion, or recovery. There was no complaint of chest discomfort during pharmacologic infusion or recovery. The patient was injected with 11.2 millicuries of technetium 99m Cardiolite and subsequently rest SPECT Cardiolite nuclear imaging was obtained in the horizontal long, vertical long, and short axis views. The patient underwent pharmacologic (Regadenoson) evaluation. The patient was injected with 36.0 millicuries of technetium 99m Cardiolite and subsequently stress SPECT Cardiolite nuclear imaging was obtained in the horizontal long, vertical long, and short axis views. A gated Cardiolite study at peak stress was obtained. The examination was stopped secondary to completion of protocol. Rest and stress SPECT Cardiolite nuclear imaging status post realignment, normalization, and attenuation correction demonstrate a small sized apical and septal reversible perfusion defect of mild intensity suggestive of ischemia. There is end systolic thickening and brightening. The gated Cardiolite study demonstrates myocardial thickening and inward wall motion. The reported LVEF is 89%. Impression: 1. Pharmacologic (Regadenoson) evaluation 2. Peak pharmacologic ECG with no ischemic changes. 3. There were no cardiac dysrhythmias pretest, during pharmacologic infusion, or recovery. 5. Small apical and septal reversible perfusion defect suggestive of mild ischemia. 6. The gated Cardiolite study reports an LVEF of 89%. Echocardiogram 09/21/22: Interpretation Summary The estimated ejection fraction is 60 %. No evidence for diastolic dysfunction. Mildly dilated right ventricle. Mildly decreased right ventricular systolic function CTA Chest 11/08/22: Impression No evidence of pulmonary embolism or aortic dissection. COPD related changes with prominent interstitium consistent with underlying interstitial edema and scattered alveolar edema in the cardiogenic setting, clinically correlate. PULMONARY FUNCTION TEST 01/02/23: INTERPRETATION: Forced expiration spirometry demonstrates no evidence of a large airways obstructive ventilatory defect. There was no significant response to aerosolized bronchodilators. Spirograms are of good quality and plateau normally. Body plethysmography was performed and revealed a decreased TLC to 2.16 L, 47% of predicted, indicative of a severe restrictive ventilatory impairment. Diffusing capacity by single breath CO is reduced at 30% of predicted. IMPRESSION: Severe restrictive ventilatory impairment with symmetric reduction in diffusing capacity. Assessment and Plan Assessment and Plan (1) Dyspnea on exertion: Status: Chronic Plan: Patient acknowledges RODRIGUEZ. Her most recent stress test demonstrated a small apical and septal reversible perfusion defect suggestive of mild ischemia. Will proceed with a cardiac catheterization to further assess this. Depending on results, further recommendations will be made. (2) Abnormal Stress Test: Patients stress test from 02/22/2023 demonstrated a small apical and septal reversible perfusion defect suggestive of mild ischemia. Will proceed with a cardiac catheterization to furhter assess this. Depending on results, further recommendations will be made.
[2023-03-20 08:32] VITALS: BMI 28.3
[2023-04-04 13:42] LABS: Hematocrit 46.4 % (37-47); Mean Corp Hgb Conc 30.2 g/dL (32-36); Mean Corpuscular Volume 96.1 fL (81-99); Mean Platelet Vol. 9.1 fl (6.2-12.0); Platelet Count 334 K/mm3 (150-450); RBC Distribution Width CV 13.6 % (11.6-14.6); Red Blood Count 4.83 M/mm3 (4.2-5.4)
[2023-04-04 14:10] LABS: Anion Gap 5 (5-15); BUN 12 mg/dL (7-18); BUN/Creat Ratio 15.9 RATIO (10-20); Calcium,Total 9.8 mg/dL (8.5-10.1); Chloride 99 mmol/L (98-107); Creatinine, Serum 0.75 mg/dL (0.55-1.02); EST Glomerular Filtration Rate 81 mL/min (>60); Est Glom Filt Rate - Afr Amer 98 mL/min (>60); Estimated Creatinine Clearance 43.18 ml/min; Glucose 106 mg/dL (74-106); Potassium 3.8 mmol/L (3.5-5.1); Sodium Level 139 mmol/L (136-145)
--- NOTE | 2023-04-16 10:38 | CL.D_ITS ---
Patient Name: TOMMY MENDEZ Study Date: 04/16/2023 Performing: John Ojeda MD Ht: 62 inches 157.48 cm : 1955 Wt: 155.01 lbs 70.31 kg Age: 67 Gender: female BSA: 1.72 PROCEDURE(S) PERFORMED [id number])[facility] CLINICAL PROFILE AND INDICATIONS Indications: Suspected CAD Heart Failure: None Stress/Imaging Stress Test w/SPECT MPI: Yes Result: Positive Intermediate RiskStress Test with SPECT MPI: Positive Intermediate Risk CONCLUSIONS 50% Mid LAD RECOMMENDATIONS Risk factor modification Medical therapy DESCRIPTION OF PROCEDURE The patient arrived to the procedure lab. The risks and benefits of the procedure as well as a full description of our services here and current unavailability of surgical backup were fully explained to the patient and/or their significant other prior to the catheterization. The Timeout was completed, verifying the correct patient and procedure. The patient's procedural site was prepped and draped in the usual fashion. Local anesthetic was given subcutaneously to right radial region with Lidocaine 2%. Using a modified Seldinger technique, arterial access was obtained via the right radial artery, a 6Fr sheath was inserted. Left Coronary Artery selective angiography was performed in multiple views using a 5 Fr. 3.0. Right Coronary Artery selective angiography was then performed in multiple views using a 5 Fr. 3DRC (Heriberto) catheter.The arterial sheath was pulled and a TR Band was applied for hemostasis CORONARY ANGIOGRAPHY DOMINANCE: Right Dominant LEFT MAIN: Angiographically normal LEFT ANTERIOR DESCENDING ARTERY: LAD: Tubular 50% Mid lesion in LAD CIRCUMFLEX ARTERY: Angiographically normal RIGHT CORONARY ARTERY: Angiographically normal COMPLICATIONS No Complications PROCEDURE MEDICATIONS Versed 1 mg IV Fentanyl 50 mcg IV Oxygen: 3 L/min via nasal cannula SUMMARY OF HEMODYNAMIC DATA Time AIR REST AO 157/79 (96) SA 09:30:30 ECG 10:36:37 ECG 10:36:52 10:36:52 Signed By John Ojeda MD On 04/16/2023 10:37:11 John Ojeda MD
[2023-04-16 10:48] LABS: Cholesterol 170 mg/dL (200); High Density Lipoprotein 53 mg/dL; Triglycerides 75 mg/dL; Very Low Density Lipoprotein 15 mg/dL (5-40)
== END 2023-04-16 11:32 | disposition home or self-care (01) ==
LOC: CLSP 08:19
PROVIDERS: Nurse Practitioner Gerontology; PCP Family Medicine; Referring Provider Internal Medicine Cardiovascular Disease; Visit Provider Internal Medicine Cardiovascular Disease
DX: R94.39 Abnormal result of other cardiovascular function study (principal); J44.9 Chronic obstructive pulmonary disease, unspecified; I10 Essential (primary) hypertension; Z87.891 Personal history of nicotine dependence; R06.09 Other forms of dyspnea; E66.9 Obesity, unspecified
CPT/HCPCS: 36415; 80048; 80061; 85025; 85027; 93454; 99152; 99153; J7040; Q9967; C1769; C1894

== ENCOUNTER → 2023-04-18 | Outpatient (CLI) | payer MEDICARE, SELFPAY ==
[2023-04-18 12:59] LABS: T4 Free Direct 1.03 ng/dL (0.76-1.46); Thyroid Stim Hormone (TSH) 0.92 uIU/mL (0.358-3.74)
== END | disposition home or self-care (01) ==
LOC: BFHLAB 09:07
PROVIDERS: PCP Family Medicine; Visit Provider Family Medicine
DX: E03.9 Hypothyroidism, unspecified (principal)
CPT/HCPCS: 36415; 84439; 84443

== ENCOUNTER → 2023-04-27 | Outpatient (CLI) | payer MEDICARE, SELFPAY ==
--- NOTE | 2023-04-27 13:16 | BI_ITS ---
MAMMOGRAPHY - BILATERAL SCREENING REASON FOR EXAM: Female, 67 years old. Routine annual screening examination. PERTINENT HISTORY: Aunt with breast cancer. TECHNIQUE: Digital bilateral breast kun (3D mammographic acquisition) in the CC and MLO projections. 2-D mediolateral oblique (MLO) and craniocaudad (CC) views of both breasts were obtained. CAD: Full Field Digital Mammography with Computer Added Detection was performed. COMPARISON: Comparison is made with prior outside examination of April 08, 2021. FINDINGS: Breast Composition: There are scattered areas of fibroglandular density. There are no dominant masses or suspicious calcifications. No other significant abnormalities are identified. There has been no significant change since the prior study. BI/SCRN MAMM (CAD)W/KUN BILAT IMPRESSION: Stable bilateral screening mammogram. Yearly follow-up mammogram recommended. (A) ASSESSMENT CATEGORY: BIRADS Category 1: Negative. A letter regarding these results will be sent to the patient by the facility within 30 days. Approximately 10% of breast cancers are not detected by mammography. A normal mammogram should not delay biopsy of a clinically suspicious abnormality. [id number] Electronically Signed: Marcin Telles MD at 14:52 EST ,
== END | disposition home or self-care (01) ==
LOC: OPBI 13:15
PROVIDERS: PCP Family Medicine; Referring Provider Family Medicine; Visit Provider Family Medicine
DX: Z12.31 Encounter for screening mammogram for malignant neoplasm of breast (principal); Z80.3 Family history of malignant neoplasm of breast
CPT/HCPCS: 77063; 77067

== ENCOUNTER → 2023-05-16 | Outpatient (CLI) | payer MEDICARE, SELFPAY | END | disposition home or self-care (01) | LOC: LAB 10:43 | PROVIDERS: PCP Family Medicine; Referring Provider Internal Medicine Cardiovascular Disease; Visit Provider Internal Medicine Cardiovascular Disease | DX: I50.9 Heart failure, unspecified (principal); I25.10 Atherosclerotic heart disease of native coronary artery without angina pectoris; R06.09 Other forms of dyspnea; I10 Essential (primary) hypertension | CPT/HCPCS: 36415; 83880 ==

== ENCOUNTER → 2023-07-23 | Outpatient (CLI) | payer MEDICARE, SELFPAY ==
--- OUTSIDE RECORDS SUMMARY | 2023-07-23 21:01 | XMS RPT_ITS | CCD ---
Author Name Unknown Address [address] [place] [id number] Organization [facility] Results Test Name Value Interpretation Reference Range Facil ity Progress note 05-31-2021 Note Date & Type Note Facility 05-31-2021 Note HNO ID: [id number] Author: Tony Lindsey Service: ? Author Type: Emergency Department Clinician Type: Progress Notes Filed: 05/31/2021 1:59 PM Note Text: Radiology Service Progress Note PATIENT NAME: Tommy Andre DATE OF SERVICE: May 31, 2021 TIME: 1:59 PM PATIENT IDENTITY VERIFICATION COMPLETED USING TWO (2) IDENTIFIERS: Name and Date of confirmed by patient verbally. FALL SCREENING: Has the patient had 2 falls in the last year or 1 fall with injury or currently using an Ambulatory Assistive Device (Walker, Cane, Wheelchair, Crutches, etc.)? No PATIENT GENDER DATA: Female. status: : No status: NO. PATIENT RELEVANT IMPLANT DATA REVIEWED: Not Applicable RADIOLOGY DEPARTMENT: Mammography PERIPHERAL IV DATA: Not applicable SIGNED BY: Tony Lindsey May 31, 2021 1:59 PM [facility] Progress note 04-08-2021 Note Date & Type Note Facility 04-08-2021 Note HNO ID: [id number] Author: JAIME Nielsen) Service: ? Author Type: Technologist Type: Progress Notes Filed: 04/08/2021 2:56 PM Note Text: Radiology Service Progress Note PATIENT NAME: Tommy Andre DATE OF SERVICE: April 08, 2021 TIME: 2:34 PM PATIENT IDENTITY VERIFICATION COMPLETED USING TWO (2) IDENTIFIERS: Name and Date of confirmed by patient verbally. FALL SCREENING: Has the patient had 2 falls in the last year or 1 fall with injury or currently using an Ambulatory Assistive Device (Walker, Cane, Wheelchair, Crutches, etc.)? No PATIENT GENDER DATA: Female. status: : No status: NO. PATIENT RELEVANT IMPLANT DATA REVIEWED: Not Applicable RADIOLOGY DEPARTMENT: Mammography PERIPHERAL IV DATA: Not applicable SIGNED BY: RT Gia(R) April 08, 2021 2:34 PM [facility] Summary Purpose Family History No Family History Records Found Advance Directives No Advanced Directives Records Found Additional Source Comments INFORMATION SOURCE (unrecogn ized section and content) FOR RECORDS PERTAINING TO PATIENTS WHO ARE OR HAVE BEEN ENROLLED IN A CHEMICAL DEPENDENCY/SUBSTANCEABUSE PROGRAM, SOME INFORMATION MAY BE OMITTED. This clinical summary was aggregated from multiple sources. Caution should be exercised in using it in the provision of clinical care. This summary normalizes information from multiple sources, and as a consequence, information in this document may materially change the coding, format and clinical context of patient data. In addition, data may be omitted in some cases. CLINICAL DECISIONS SHOULD BE BASED ON THE PRIMARY CLINICAL RECORDS. [facility] [email or web address] provides no warranty or guarantee of the accuracy or completeness of information in this document.
== END | disposition home or self-care (01) ==
LOC: PSN 12:49
PROVIDERS: PCP Family Medicine; Referring Provider Internal Medicine Critical Care Medicine; Visit Provider Internal Medicine Critical Care Medicine
DX: I27.20 Pulmonary hypertension, unspecified (principal); J98.4 Other disorders of lung
CPT/HCPCS: 94060; 94726; 94729

== ENCOUNTER → 2023-07-25 | Outpatient (CLI) | payer MEDICARE, SELFPAY ==
[2023-07-25 13:27] VITALS: PULSE 103; PULSE 107; PULSE 99; O2SAT 82; O2SAT 85; O2SAT 86; O2SAT 88; O2SAT 89; O2SAT 92; O2SAT 93; O2SAT 98
--- NOTE | 2023-07-25 13:49 | CPS ---
Pt arrived at 6 miniute walk on 3 lpm pulse dose. Pt was 66% room air rest. Pt was insistent that she felt no different than when she was on her oxygen. Pt denied any S.O.B. Pt's color was still pink and no signs of distress noted. Pt stated she was told she has small lungs. Pt was placed back on her tank. Walk was started on 3 lpm Pulse dose. Pt dropped to 86% at 1 minute into walk on her pulse dose at 3 lpm. Pt was changed to continuous. Walk was resumed with pt on 3 lpm continuous. Pt dropped again to 85% at 2 minutes on the 3 lpm. Pt increased to 4 lpm. At 3 minutes into walk she dropped to 82% on 4 lpm. Pt was increased to 6 lpm and finished walk on 6 lpm. Pt denied S.O.B the entire time. Pt stated multiple times she felt no different being on Oxygen at 3 lpm pulse dose or 6 lpm continuous. Pt and her stated multiple times pt had small lungs and she is not going to read as high as other people. Pt and her were informed that I had to follow our 6 minute walk protocol. Pt and her stated they did not care what the protocol was that she should not be tested at the same level as others. I informed them that I was not able to change the protocol for her and was not told to do so by the ordering Doctor. I mentioned to them that if they felt they needed to call Dr Bennett's office and ask if she is able to stay on her 3 lpm pulse dose they should.
--- NOTE | 2023-07-26 08:34 | PCM.PSN.6M ---
PSN 6 Minute Walk Test 6 Minute Walk Test 6 Minute Walk Test: 6 Minute Walk Test PSN:6-Minute Walk Test Start: 07/25/23 13:23 Freq: Status: Active Protocol: RESP.6MINW Document 07/25/23 13:27 [facility] (Rec: 07/25/23 13:32 [facility] Desktop) 6 Minute Walk Test Date Performed 07/25/23 Time Performed 12:30 Height 5 ft 1 in Weight: 70.307 kg Weight in Pounds 155.[address]: Dr Bennett Assistive device used: Walker Pre-test Oxygen Flow Rate (L/min) 3 Oxygen Delivery Method Venturi Mask Pulse Ox 93 Pulse Rate (60-100) 107 H Dyspnea Royer Scale (0-10) 0 Exertion Royer Scale (6-20) 6 1st minute Oxygen Flow Rate (L/min) 3 Oxygen Delivery Method Nasal Cannula Pulse Ox 86 Pulse Rate (60-100) 107 H Dyspnea Royer Scale (0-10) 0 2nd minute Oxygen Flow Rate (L/min) 3 Oxygen Delivery Method Nasal Cannula Pulse Ox 85 Pulse Rate (60-100) 103 H Dyspnea Royer Scale (0-10) 0 3rd minute Oxygen Flow Rate (L/min) 4 Oxygen Delivery Method Nasal Cannula Pulse Ox 82 Pulse Rate (60-100) 103 H Dyspnea Royer Scale (0-10) 0 4th minute Oxygen Flow Rate (L/min) 6 Oxygen Delivery Method Nasal Cannula Pulse Ox 89 Pulse Rate (60-100) 103 H Dyspnea Royer Scale (0-10) 0 5th minute Oxygen Flow Rate (L/min) 6 Oxygen Delivery Method Nasal Cannula Pulse Ox 92 Pulse Rate (60-100) 107 H Dyspnea Royer Scale (0-10) 0 6th minute Oxygen Flow Rate (L/min) 6 Oxygen Delivery Method Nasal Cannula Pulse Ox 88 Pulse Rate (60-100) 99 Dyspnea Royer Scale (0-10) 0 Post-test Oxygen Flow Rate (L/min) 6 Oxygen Delivery Method Nasal Cannula Pulse Ox 98 Pulse Rate (60-100) 99 Dyspnea Royer Scale (0-10) 0 Full Laps Walked 5 Partial Lap, Number of Tiles Walked 0 Total Distance Walked (ft) 295 Interpretation Interpretation: Patient noted to be 66% on room air at rest. Patient was placed on 3 L pulsed dose with improvement to 93%. During ambulation, patient required up to 6 L continuous flow to maintain saturations. In total, the patient traveled 295 feet over the course of 6 minutes with no significant tachycardia, the assistance of a walker and no break. These findings are consistent with a respiratory limitation exercise tolerance. Recommendations Recommendations: The patient does well on 3 L/min pulsed dose at rest, but requires up to 6 L continuous flow to maintain saturations with ambulation.
== END | disposition home or self-care (01) ==
LOC: PSN 12:20
PROVIDERS: PCP Family Medicine; Referring Provider Internal Medicine Critical Care Medicine; Visit Provider Internal Medicine Critical Care Medicine
DX: I27.20 Pulmonary hypertension, unspecified (principal); J98.4 Other disorders of lung
CPT/HCPCS: 94618

== ENCOUNTER → 2024-04-22 | Outpatient (CLI) | payer MEDICARE, SELFPAY ==
[2024-04-22 18:40] LABS: ALB/GLOB Ratio 0.8 RATIO (0.9-2.4); AST(SGOT) 11 U/L (15-37); Alanine Aminotransfer ALT/SGPT 18 U/L (13-56); Albumin, Serum 3.6 g/dL (3.2-5.0); Alkaline Phosphatase 102 U/L (45-117); Anion Gap 5 (5-15); BUN 11 mg/dL (7-18); BUN/Creat Ratio 17.2 RATIO (10-20); Chloride 106 mmol/L (98-107); Creatinine, Serum 0.64 mg/dL (0.55-1.02); EST Glomerular Filtration Rate 98 mL/min (>60); Est Glom Filt Rate - Afr Amer 119 mL/min (>60); Globulin 4.8 g/dL (2.2-4.2); Glucose 98 mg/dL (74-106); Potassium 3.8 mmol/L (3.5-5.1); Protein, Total 8.4 g/dL (6.4-8.2); Sodium Level 141 mmol/L (136-145); T4 Free Direct 1.17 ng/dL (0.76-1.46); Thyroid Stim Hormone (TSH) 0.376 uIU/mL (0.358-3.740)
== END | disposition home or self-care (01) ==
LOC: BFHLAB 16:28
PROVIDERS: PCP Family Medicine; Referring Provider Family Medicine; Visit Provider Family Medicine
DX: I10 Essential (primary) hypertension (principal); E03.9 Hypothyroidism, unspecified
CPT/HCPCS: 36415; 80053; 84439; 84443

== ENCOUNTER → 2024-05-19 | Outpatient (CLI) | payer MEDICARE, SELFPAY ==
[2024-05-19 12:12] LABS: Absolute Lymphocyte Count 1.48 X10^3/uL (0.83-4.51); Absolute Neutrophil Count 7.3 X10^3/uL (2.0-7.7); Basophil# 0.04 X10^3/uL; Basophil% 0.4 % (0-1); Eosinophil# 0.19 X10^3/uL; Hematocrit 42.9 % (37-47); Hemoglobin 12.7 g/dL (12.0-15.0); Lymphocyte # 1.48 X10^3/ul (0.83-4.51); Lymphocyte % 15.4 % (19-41); Mean Corp Hgb Conc 29.6 g/dL (32-36); Mean Corpuscular Hgb 28.2 pg (27.0-32.0); Mean Corpuscular Volume 95.1 fL (81-99); Monocyte# 0.57 X10^3/uL; Monocyte% 5.9 % (0-10); NRBC Flagged by Analyzer 0 % (0-5); Neutrophil % 75.9 % (47-70); Platelet Count 287 K/mm3 (150-450); RBC Distribution Width CV 14.8 % (11.6-14.6); Red Blood Count 4.51 M/mm3 (4.2-5.4); White Blood Count 9.6 K/mm3 (4.4-11.0)
[2024-05-19 12:38] LABS: ALB/GLOB Ratio 0.7 RATIO (0.9-2.4); AST(SGOT) 10 U/L (15-37); Alanine Aminotransfer ALT/SGPT 22 U/L (13-56); Albumin, Serum 3.4 g/dL (3.2-5.0); Alkaline Phosphatase 100 U/L (45-117); Anion Gap 5 (5-15); BUN 10 mg/dL (7-18); BUN/Creat Ratio 14.7 RATIO (10-20); Calcium,Total 9.8 mg/dL (8.5-10.1); Chloride 104 mmol/L (98-107); Cholesterol 118 mg/dL (200); Creatinine, Serum 0.68 mg/dL (0.55-1.02); EST Glomerular Filtration Rate 92 mL/min (>60); Est Glom Filt Rate - Afr Amer 111 mL/min (>60); Globulin 4.9 g/dL (2.2-4.2); Glucose 137 mg/dL (74-106); High Density Lipoprotein 58 mg/dL; Potassium 3.6 mmol/L (3.5-5.1); Protein, Total 8.3 g/dL (6.4-8.2); Sodium Level 142 mmol/L (136-145); Triglycerides 79 mg/dL; Very Low Density Lipoprotein 16 mg/dL (5-40)
== END | disposition home or self-care (01) ==
LOC: BFHLAB 10:29
PROVIDERS: Internal Medicine Cardiovascular Disease; PCP Family Medicine; Referring Provider Family Medicine; Visit Provider Family Medicine
DX: I10 Essential (primary) hypertension (principal); E66.9 Obesity, unspecified
CPT/HCPCS: 36415; 80053; 80061; 85025

== ENCOUNTER 2024-06-28 10:54 | Inpatient (IN) | payer MEDICARE, SELFPAY ==
[2024-06-28] VITALS (25 sets, daily range): BP systolic 119–169; BP diastolic 65–91; PULSE 90–108; RESP 12–40; TEMP 36.2–36.7; O2SAT 77–100; BMI 29.7; BMI 29.2
--- NOTE | 2024-06-28 10:59 | EKG12_ITS ---
Test Reason : SOB Blood Pressure : */* mmHG Vent. Rate : 94 BPM Atrial Rate : 94 BPM P-R Int : 150 ms QRS Dur : 68 ms QT Int : 364 ms P-R-T Axes : 50 5 27 degrees QTcB Int : 455 ms Normal sinus rhythm Normal ECG Confirmed by THEE VICK, PATRICIO ([id number]), editor at large MEEK PORTER ([id number]) on 06/30/2024 8:17:24 AM Referred By: Confirmed By: PATRICIO KINGSTON MD
--- NOTE | 2024-06-28 11:00 | ED.VIS.DYS ---
HPI History of Present Illness Chief Complaint: Shortness of Breath Informant: patient and EMS Narrative Narrative: 68-year-old female with a history of COPD and CHF presenting to the emergency room with shortness of breath. Patient states in the past couple days something has been working on me. She notes progressively worsening shortness of breath slight cough and mild rhinorrhea. The patient states that she typically wears 6 L nasal cannula at home. EMS states that she had a significant amount of tubing attached to her concentrator. They note that she was 50% on her nasal cannula when they arrived and was forde. They noted that her lungs were very tight and they administered a DuoNeb Solu-Medrol and a nonrebreather. They state that she is doing significantly better since transporting her. She denies fever or diarrhea or vomiting. [facility] Medical History CHRIS and COPD overlap syndrome Coronary artery disease CHRIS (obstructive sleep apnea) Abnormal stress test Restrictive lung disease 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 (chronic) Dyspnea on exertion Obesity Essential (primary) hypertension Pulmonary hypertension Daytime hypersomnia Arthritis Shortness of breath on exertion On home oxygen therapy Pneumonia History of edema Chronic respiratory failure with hypoxia CHF (congestive heart failure) Hypothyroid Home Medications ?Medication ?Instructions ?Recorded ?Last Taken ?Type acetaminophen 650 mg 650 mg PO Q12H PAIN 09/21/22 06/27/24 History tablet,extended release levothyroxine 50 mcg tablet 50 mcg PO DAILY THYROID 09/21/22 06/28/24 History potassium chloride 20 mEq 20 meq PO BIDCM #30 tabs 09/27/22 06/27/24 Rx tablet,extended release(part/cryst) (Klor-Con M) calcium 333 mg-vit D3 133 2 tab PO DAILY 01/03/23 06/27/24 History unit-magnesium 133 mg-zinc 5 mg tablet (David Mag Zinc Plus D3) chlorpheniramine maleate 4 mg 4 mg PO Q4H PRN allergy symptoms 01/03/23 06/27/24 History tablet (ChlorTabs) chromium picolinate 200 mcg tablet 200 mcg PO DAILY 01/03/23 06/27/24 History echinacea 500 mg capsule 1,000 mg PO DAILY 01/03/23 06/27/24 History garlic 1,000 mg capsule 1,000 mg PO DAILY 01/03/23 06/27/24 History multivitamin (Daily Multi-Vitamin 1 tab PO DAILY 01/03/23 06/27/24 History tablet) turmeric 400 mg capsule 400 mg PO DAILY 01/03/23 06/27/24 History vitamin D3 25 mcg (1,000 unit)-vit 1 tab PO DAILY 01/03/23 06/27/24 History K2 90 mcg disintegrating tablet (D3 Plus K2 Dots) vitamins A and D3 in cod liver oil 1 cap PO DAILY 01/03/23 06/27/24 History 1,250 unit-135 unit capsule (cod liver oil) aspirin 81 mg tablet,delayed 81 mg PO DAILY 02/05/23 06/27/24 History release fluticasone 500 mcg-salmeterol 50 1 inh inhalation BID #3 ea 11/09/23 06/27/24 Rx mcg/dose blistr powdr for inhalation (Wixela Inhub) treprostinil (Tyvaso DPI) 1 ea inhalation 4X/DAY 11/14/23 06/28/24 History pravastatin 20 mg tablet 20 mg PO QHS #30 tabs 04/16/24 06/27/24 Rx diltiazem HCl 360 mg 360 mg PO QDAY #90 caps 04/30/24 06/27/24 Rx capsule,extended release 24 hr lisinopril 10 mg tablet 10 mg PO QDAY #90 tabs 06/04/24 06/27/24 Rx cyanocobalamin (vitamin B-12) 1,000 mcg PO DAILY 06/28/24 06/27/24 History 1,000 mcg capsule furosemide 40 mg tablet (Lasix) 40 mg PO BID 06/28/24 06/27/24 History vitamin E 268 mg (400 unit) capsule 268 mg PO DAILY 06/28/24 06/27/24 History Allergy/AdvReac Type Severity Reaction Status Date / Time Penicillins Allergy Hives Verified 04/30/24 13:51 Family History Father , 53 CVA (cerebral vascular accident) CAD (coronary artery disease) Myocardial infarction Brother Myocardial infarction CAD (coronary artery disease) Brother CAD (coronary artery disease) stent Brother CAD (coronary artery disease) stent Surgical History History of left heart catheterization (~04/16/23) Hx of tonsillectomy History of excision of lesion Hx of left cataract extraction Hx of right cataract extraction History of right hip replacement Social History household members: spouse housing: house Smoking Status: Former smoker how long ago did patient quit smokin plus years ago alcohol intake: current alcohol intake frequency: holidays/special occasions only substance use type: does not use caffeine: Yes Type: carbonated beverages Number of servings: 4 and coffee ROS ROS ED Constitutional Constitutional ED: Denies chills, fever(s) or weight loss Eyes Eyes: Denies change in vision or diplopia ENT ENT ED: Reports rhinorrhea; Denies ear pain or sore throat Cardiovascular Cardiovascular: Denies chest pain, orthopnea, palpitations or racing heartbeat Respiratory/Chest Respiratory/Chest: Reports cough, dyspnea and dyspnea on exertion; Denies orthopnea Gastrointestinal Gastrointestinal: Denies abdominal pain, diarrhea, nausea or vomiting Genitourinary Genitourinary ED: Denies dysuria, hematuria or urinary frequency Musculoskeletal Musculoskeletal: Denies arthralgias or myalgias Integumentary Denies abscess or rash Neurologic Neurologic: Denies headache(s) or weakness Psychiatric Psychiatric: Denies anxiety, depression, suicidal ideation or suicidal thoughts Endocrine Endocrinology: Denies polydipsia, polyphagia or polyuria Allergic/Immunologic Allergic/Immunologic ED: Denies mouth swelling, tongue swelling or urticaria EXAM Physical Exam Const Vital Signs: 06/28/24 10:56 06/28/24 10:56 06/28/24 10:59 Temperature 97.7 F L Temperature Source Oral Pulse Rate 101 H Respiratory Rate Respiratory Effort Respiratory Depth Respiratory Pattern Blood Pressure 159/65 H Blood Pressure Mean 96 Pulse Ox 77 93 96 Oxygen Delivery Method High Flow Bi-pap Bi-pap Oxygen Flow Rate (L/min) 6 Fraction of Inspired Oxygen (FIO2) 70 50 06/28/24 11:01 06/28/24 11:02 06/28/24 11:05 Temperature 97.7 F L Temperature Source Oral Pulse Rate 95 101 H Respiratory Rate 22 H 27 H Respiratory Effort Normal Respiratory Depth Normal Respiratory Pattern Normal Tachypnea Blood Pressure 151/69 H Blood Pressure Mean 96 Pulse Ox 98 95 Oxygen Delivery Method Bi-pap Bi-pap Oxygen Flow Rate (L/min) Fraction of Inspired Oxygen (FIO2) 50 50 50 06/28/24 12:05 06/28/24 12:45 06/28/24 12:58 Temperature Temperature Source Pulse Rate 95 Respiratory Rate 34 H Respiratory Effort Respiratory Depth Respiratory Pattern Blood Pressure 140/70 H Blood Pressure Mean 90 Pulse Ox 95 Oxygen Delivery Method Venturi Mask Oxygen Flow Rate (L/min) 12 Fraction of Inspired Oxygen (FIO2) 40 50 06/28/24 14:00 06/28/24 14:48 Temperature Temperature Source Pulse Rate 99 103 H Respiratory Rate 30 H 22 H Respiratory Effort Respiratory Depth Respiratory Pattern Blood Pressure 142/67 H 148/72 H Blood Pressure Mean 87 97 Pulse Ox 93 Oxygen Delivery Method Oxygen Flow Rate (L/min) Fraction of Inspired Oxygen (FIO2) Positive well nourished, well developed and obese General Appearance ED: well developed Nutritional Appearance: obese HEENT Reports normocephalic, head/scalp atraumatic and moist mucous membranes Eyes PERRL and EOMs intact bilaterally Neck no lymphadenopathy, supple and no JVD Resp Resp Narrative: Patient with tachypnea and accessory muscle use. She has some pursed lip breathing. Lung sounds are clear but diminished at bases. Cardio regular rate, regular rhythm and no murmurs Rate: tachycardic GI normal to inspection, nondistended, normoactive bowel sounds and non-tender Palpation: soft Back/Spine no CVA tenderness and normal ROM Extremity normal to inspection General Extremety ED: Negative for edema General Extremity: Negative for edema Neuro oriented x3 and CN's II-XII intact bilaterally Sensorium / Orientation: alert Motor Exam: strength 5/5 throughout Psych mental status grossly normal Mood & Affect: Negative for depressed or tearful Skin no rashes or lesions noted and no wounds MDM MDM MDM Narrative Medical decision making narrative: Differential diagnosis includes but not limited to COPD exacerbation congestive heart failure pneumonia bronchospasm pleural effusion ACS sepsis electrolyte abnormalities cardiac dysrhythmia Patient's white count is 10 hemoglobin 11.3 platelet count is 360. BMP shows a glucose of 159 normal creatinine normal sodium and potassium. Her BNP is 261.3 with a troponin of 22. Lactic acid is elevated at 2.7 which I believe is most likely related to her profound hypoxia. My independent interpretation of the plain films of the chest is cardiomegaly with chronic airspace disease. A CTA of the chest was obtained which does not demonstrate any pulmonary embolism or definitive infiltrate. COVID influenza RSV swabs negative. Patient already received Solu-Medrol and breathing treatment. She was transition from BiPAP to a Ventimask. Plan will be admission. History & Record Review Discussion w/independent historian: Patient Additional record(s) reviewed:: Prior ED visit and Prior labs Lab Data Attestation: I reviewed the patient's lab results. Labs: Laboratory Results - last 24 hr 06/28/24 10:57 WBC 10.0 RBC 4.10 L Hgb 11.3 L Hct 38.4 MCV 93.7 MCH 27.6 MCHC 29.4 L RDW Std Deviation 55.0 H RDW Coeff of [place] 16.2 H Plt Count 360 MPV 9.5 Immature Gran % (Auto) 0.400 Neut % (Auto) 72.0 H Lymph % (Auto) 18.1 L Nance % (Auto) 7.0 Eos % (Auto) 2.0 Baso % (Auto) 0.5 Absolute Neuts (auto) 7.2 Absolute Lymphs (auto) 1.80 Nucleated RBC % 0 Sodium 140 Potassium 3.8 Chloride 104 Carbon Dioxide 32.0 Anion Gap 5 BUN 14 Creatinine 0.88 Estim Creat Clear Calc 55.33 Est GFR (MDRD) Af Amer 83 Est GFR (MDRD) Non-Af 68 BUN/Creatinine Ratio 16.0 Glucose 159 H Lactic Acid 2.7 H* Calcium 9.8 Total Bilirubin 0.60 Direct Bilirubin 0.26 AST 9 L ALT 22 Alkaline Phosphatase 82 Troponin I High Sens 22 B-Natriuretic Peptide 261.3 H Total Protein 7.7 Albumin 3.2 Globulin 4.5 H ABG Data ABG results: ABG 06/28/24 11:08 Specimen Type NAINA Sample Site Not entered VBG pH 7.38 VBG pO2 18 L* VBG HCO3 33 H VBG Total CO2 35 H VBG O2 Sat (Calc) 25 L VBG Base Excess 8 H POC Mix VBG pCO2 Pt Tmp 55.6 H O2 Delivery Device Not entered Crit Call To/Read Back Yes Radiography Diagnostic Testing: Clinical Impression(s) from Imaging Studies Chest X-Ray 06/28/24 11:08 IMPRESSION: As above. Reading Location: [facility] Chest CTA 06/28/24 12:17 IMPRESSION: No acute thromboembolic disease. Worsening pleural-parenchymal disease as described above. Mediastinal lymphadenopathy also noted. Nodularity of the bilateral adrenal glands. Clinical follow-up is advised. One or more dose reduction techniques were used (e.g., Automated exposure control, adjustment of the mA and/or kV according to patient size, use of iterative reconstruction technique). Reading Location: [facility] EKG Initial EKG: Attestation: I personally reviewed and interpreted this EKG as follows: Comments: Normal sinus rhythm ventricular of 94 bpm. Atrial enlargement suspected Management Discussion w/another healthcare provider: Hospitalist (Dr Amanda) Discharge Plan Triage Chief Complaint: Shortness of Breath ED Provider: Edide uPtnam Dx/Rx/DC Orders Prescriptions: No Action aspirin 81 mg tablet,delayed release (DR/EC) 81 mg PO DAILY Tyvaso DPI 16(112)-32(112) -48(28) mcg cartridge with inhaler 1 ea inhalation 4X/DAY Patient Comments: pt has with her. diltiazem HCl 360 mg capsule,extended release 24hr 360 mg PO QDAY Qty: 90 3RF acetaminophen 650 mg Tablet Extended Release 650 mg PO Q12H levothyroxine 50 mcg tablet 50 mcg PO DAILY potassium chloride [Klor-Con M20] 20 mEq Tablet,Er Particles/Crystals 20 meq PO BIDCM Qty: 30 0RF chlorpheniramine maleate [ChlorTabs] 4 mg tablet 4 mg PO Q4H PRN (Reason: allergy symptoms) vit A and D3 in cod liver oil [cod liver oil] 1,250-135 unit capsule 1 cap PO DAILY garlic 1,000 mg capsule 1,000 mg PO DAILY turmeric 400 mg capsule 400 mg PO DAILY multivitamin [Daily Multi-Vitamin] Tablet 1 tab PO DAILY echinacea 500 mg capsule 1,000 mg PO DAILY Rx Instructions: administer with meals chromium picolinate 200 mcg tablet 200 mcg PO DAILY calcium carb-D3-mag ox-zinc ox [David Mag Zinc Plus D3] 333 mg-133 unit -133 mg-5 mg tablet 2 tab PO DAILY D3 Plus K2 Dots 25 mcg (1,000 unit)-90 mcg tablet,disintegrating 1 tab PO DAILY cyanocobalamin (vitamin B-12) 1,000 mcg capsule 1,000 mcg PO DAILY vitamin E 268 mg (400 unit) capsule 268 mg PO DAILY furosemide [Lasix] 40 mg tablet 40 mg PO BID fluticasone propion-salmeterol [Wixela Inhub] 500-50 mcg/dose blister with device 1 inh inhalation BID Qty: 3 3RF pravastatin 20 mg tablet 20 mg PO QHS Qty: 30 11RF lisinopril 10 mg tablet 10 mg PO QDAY Qty: 90 3RF Primary Care Provider: Hoda Del Rosario Referrals: Hoda Del Rosario MD [Primary Care Provider] - Print Language: Belarusian
--- NOTE | 2024-06-28 11:06 | ED.RN ---
PT DENIES AND N/V/D. PT STATES SHE HAS BEEN HAVING THICK MUCOUS WHEN BLOWING HER NOSE FOR APROX 2 WEEKS
--- NOTE | 2024-06-28 11:08 | RAD_ITS ---
PROCEDURE: CHEST 1 VIEW (PORTABLE) REASON FOR EXAM: Respiratory failure TECHNIQUE: Single frontal image including the chest and abdomen. COMPARISON: Reviewed. FINDINGS: Patchy airspace opacities bilaterally with increased conspicuity silhouetting the left heart border suggesting worsening pneumonia in the left lower quadrant. Heart size remains enlarged. Stable enlargement of the cardiomediastinal silhouette. No pneumothorax. RAD/Chest 1 View (Portable) IMPRESSION: As above. Reading Location: [facility]
[2024-06-28 11:12] LABS: Absolute Neutrophil Count 7.2 X10^3/uL (2.0-7.7); Basophil# 0.05 X10^3/uL; Basophil% 0.5 % (0-1); Hematocrit 38.4 % (37-47); Hemoglobin 11.3 g/dL (12.0-15.0); Lymphocyte % 18.1 % (19-41); Mean Corp Hgb Conc 29.4 g/dL (32-36); Mean Corpuscular Hgb 27.6 pg (27.0-32.0); Mean Corpuscular Volume 93.7 fL (81-99); Mean Platelet Vol. 9.5 fl (6.2-12.0); NRBC Flagged by Analyzer 0 % (0-5); Neutrophil # 7.18 X10^3/uL (2.7-7.7); Platelet Count 360 K/mm3 (150-450); RBC Distribution Width CV 16.2 % (11.6-14.6)
[2024-06-28 11:13] LABS: Blood Gas Specimen Type VEN; O2 Delivery Device Not entered; SITE Not entered; VBG BASE EXCESS 8 mmol/L (-1.0-3.5); VBG Bicarbonate 33 mmol/L (22-26); VBG PO2 18 mmHg (25-40); VBG SO2 25 % (50-70); VBG TCO2 35 mmol/L (23-33); VBG pCO2 55.6 mmHg (41-51); VBG pH 7.38 (7.32-7.42)
--- NOTE | 2024-06-28 11:13 | CPS ---
Critical VBG results given to Dr. Putnam
[2024-06-28 11:31] LABS: BNP,B-Type NATRIURETIC PEPTIDE 261.3 pg/mL (0-100)
[2024-06-28 11:37] LABS: AST(SGOT) 9 U/L (15-37); Alanine Aminotransfer ALT/SGPT 22 U/L (13-56); Albumin, Serum 3.2 g/dL (3.2-5.0); Alkaline Phosphatase 82 U/L (45-117); Anion Gap 5 (5-15); BUN 14 mg/dL (7-18); Bilirubin, Direct 0.26 mg/dL (0.00-0.30); Calcium,Total 9.8 mg/dL (8.5-10.1); Chloride 104 mmol/L (98-107); Creatinine, Serum 0.88 mg/dL (0.55-1.02); EST Glomerular Filtration Rate 68 mL/min (>60); Est Glom Filt Rate - Afr Amer 83 mL/min (>60); Estimated Creatinine Clearance 55.33 ml/min; Globulin 4.5 g/dL (2.2-4.2); Glucose 159 mg/dL (74-106); Potassium 3.8 mmol/L (3.5-5.1); Protein, Total 7.7 g/dL (6.4-8.2); Sodium Level 140 mmol/L (136-145); Troponin-I HS 22 pg/mL (3.0-54.0)
[2024-06-28 11:39] LABS: Lactic Acid 2.7 mmol/L (0.4-1.9)
--- NOTE | 2024-06-28 12:17 | CT_ITS ---
PROCEDURE: CTA CHEST W/WO CONTRAST REASON FOR EXAM: Short of breath TECHNIQUE: CTA imaging of the chest with intravenous contrast. 3D reconstructions. COMPARISON: Reviewed. FINDINGS: Hardware: None. Scattered mildly prominent mediastinal lymph nodes are seen worsening interlobular septal thickening and multifocal bilateral airspace consolidations with fibrotic change in innumerable intrapulmonary cysts. Thoracic Aorta: No thoracic aortic aneurysm or dissection. Pulmonary Vessels: No evidence of acute pulmonary emboli through the major subsegmental branches. Most Proximal Level of Embolus (if embolus present): N/A Lungs and Airways: The lungs are normally expanded and clear. Pleura: No pleural effusion. No pneumothorax. Nodularity of the bilateral adrenal glands. Clinical follow-up is advised. Bones: Bone windows are unremarkable. CT/CTA Chest W/WO Contrast IMPRESSION: No acute thromboembolic disease. Worsening pleural-parenchymal disease as described above. Mediastinal lymphade nopathy also noted. Nodularity of the bilateral adrenal glands. Clinical follow-up is advised. One or more dose reduction techniques were used (e.g., Automated exposure contr ol, adjustment of the mA and/or kV according to patient size, use of iterative reconstruction technique). Reading [facility]
--- NOTE | 2024-06-28 14:42 | PCM.HP.STD ---
HPI - General General Date of Admission: 06/28/24 Date of Service: 06/28/24 Chief Complaint: Acute on chronic respiratory failure HPI Narrative TOMMY MENDEZ, is a 68 F who presented to [facility] ED on 06/28/2024 with acute on chronic respiratory failure. Patient has history of severe ILD with pulmonary retention, wears 6 L nasal cannula at baseline. Follows with pulmonology in [place]. Has been stable on this level of oxygen for several months now. Started inhaled treprostinil in September 2023 and has been tolerating this well. States that over the past few days she has developed URI symptoms with congestion and worsening shortness of breath. Was noted that her oxygen saturations were low this morning so she called EMS to bring her in. Her oxygen saturation was apparently in the 50s on 6 L when EMS arrived. She was placed on nonrebreather en route and given a breathing treatment with improvement in oxygen saturations. In the ED she was placed on BiPAP for period of time with improvement in work of breathing. Initial VBG prior to being placed on BiPAP showed pH 7.38, pCO2 35. Labs notable for lactate 2.7. CTA chest showed no PE, did show worsening pleural?parenchymal disease in comparison to prior CT scan from 2022 with mediastinal lymphadenopathy noted as well. COVID/flu/RSV were negative. Given these findings, hospitalist was contacted for admission. I saw the patient at bedside in the ED, was present. Patient was breathing comfortably on the Venturi mask at 12 L during my encounter with her. Her oxygen saturations were in the mid to high 80s. She reported feeling much improved from a breathing standpoint now compared to this morning. She did continue to feel congested and noted that she did not feel like the nasal cannula was helping her as much as not asked. She denied any fevers or chills. Denied any fatigue from her baseline. Importantly, I discussed CODE STATUS with patient and today. Patient noted that despite following with pulmonology for the past several years, CODE STATUS has never been discussed. She has never required intubation. States she is never been told that given her significant underlying lung disease, she would be difficult to extubate if she did need to be intubated. I noted my concern about this to patient and . She wished to remain full code at this time but noted she would continue to think about this. [facility] Medical History CHRIS and COPD overlap syndrome Coronary artery disease CHRIS (obstructive sleep apnea) Abnormal stress test Restrictive lung disease 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 (chronic) Dyspnea on exertion Obesity Essential (primary) hypertension Pulmonary hypertension Daytime hypersomnia Arthritis Shortness of breath on exertion On home oxygen therapy Pneumonia History of edema Chronic respiratory failure with hypoxia CHF (congestive heart failure) Hypothyroid Home Medications ?Medication ?Instructions ?Recorded ?Last Taken ?Type acetaminophen 650 mg 650 mg PO Q12H PAIN 09/21/22 06/27/24 History tablet,extended release levothyroxine 50 mcg tablet 50 mcg PO DAILY THYROID 09/21/22 06/28/24 History potassium chloride 20 mEq 20 meq PO BIDCM #30 tabs 09/27/22 06/27/24 Rx tablet,extended release(part/cryst) (Klor-Con M) calcium 333 mg-vit D3 133 2 tab PO DAILY 01/03/23 06/27/24 History unit-magnesium 133 mg-zinc 5 mg tablet (David Mag Zinc Plus D3) chlorpheniramine maleate 4 mg 4 mg PO Q4H PRN allergy symptoms 01/03/23 06/27/24 History tablet (ChlorTabs) chromium picolinate 200 mcg tablet 200 mcg PO DAILY 01/03/23 06/27/24 History echinacea 500 mg capsule 1,000 mg PO DAILY 01/03/23 06/27/24 History garlic 1,000 mg capsule 1,000 mg PO DAILY 01/03/23 06/27/24 History multivitamin (Daily Multi-Vitamin 1 tab PO DAILY 01/03/23 06/27/24 History tablet) turmeric 400 mg capsule 400 mg PO DAILY 01/03/23 06/27/24 History vitamin D3 25 mcg (1,000 unit)-vit 1 tab PO DAILY 01/03/23 06/27/24 History K2 90 mcg disintegrating tablet (D3 Plus K2 Dots) vitamins A and D3 in cod liver oil 1 cap PO DAILY 01/03/23 06/27/24 History 1,250 unit-135 unit capsule (cod liver oil) aspirin 81 mg tablet,delayed 81 mg PO DAILY 02/05/23 06/27/24 History release fluticasone 500 mcg-salmeterol 50 1 inh inhalation BID #3 ea 11/09/23 06/27/24 Rx mcg/dose blistr powdr for inhalation (Wixela Inhub) treprostinil (Tyvaso DPI) 1 ea inhalation 4X/DAY 11/14/23 06/28/24 History pravastatin 20 mg tablet 20 mg PO QHS #30 tabs 04/16/24 06/27/24 Rx diltiazem HCl 360 mg 360 mg PO QDAY #90 caps 04/30/24 06/27/24 Rx capsule,extended release 24 hr lisinopril 10 mg tablet 10 mg PO QDAY #90 tabs 06/04/24 06/27/24 Rx cyanocobalamin (vitamin B-12) 1,000 mcg PO DAILY 06/28/24 06/27/24 History 1,000 mcg capsule furosemide 40 mg tablet (Lasix) 40 mg PO BID 06/28/24 06/27/24 History vitamin E 268 mg (400 unit) capsule 268 mg PO DAILY 06/28/24 06/27/24 History Allergy/AdvReac Type Severity Reaction Status Date / Time Penicillins Allergy Hives Verified 04/30/24 13:51 Family History Father , 53 CVA (cerebral vascular accident) CAD (coronary artery disease) Myocardial infarction Brother Myocardial infarction CAD (coronary artery disease) Brother CAD (coronary artery disease) stent Brother CAD (coronary artery disease) stent Surgical History History of left heart catheterization (~04/16/23) Hx of tonsillectomy History of excision of lesion Hx of left cataract extraction Hx of right cataract extraction History of right hip replacement Social History household members: spouse housing: house Smoking Status: Former smoker how long ago did patient quit smokin plus years ago alcohol intake: current alcohol intake frequency: holidays/special occasions only substance use type: does not use caffeine: Yes Type: carbonated beverages Number of servings: 4 and coffee ROS Constitutional Constitutional: Denies chills, fatigue, fever(s) or weakness Eyes Eyes: Denies change in vision Cardiovascular Cardiovascular: Denies chest pain or edema Respiratory/Chest Respiratory/Chest: Reports cough, productive cough, shortness of breath at rest, shortness of breath with exertion and wheezing Gastrointestinal Gastrointestinal: Denies abdominal pain Musculoskeletal Musculoskeletal: Denies arthralgias or myalgias Neurologic Neurologic: Denies dizziness or headache(s) Vital Signs Vital Signs Vital Signs: 06/28/24 10:56 06/28/24 10:56 06/28/24 10:59 Temperature 97.7 F L Temperature Source Oral Pulse Rate 101 H Respiratory Rate Respiratory Effort Respiratory Depth Respiratory Pattern Blood Pressure 159/65 H Blood Pressure Mean 96 Pulse Ox 77 93 96 Oxygen Delivery Method High Flow Bi-pap Bi-pap Oxygen Flow Rate (L/min) 6 Fraction of Inspired Oxygen (FIO2) 70 50 06/28/24 11:01 06/28/24 11:02 06/28/24 11:05 Temperature 97.7 F L Temperature Source Oral Pulse Rate 95 101 H Respiratory Rate 22 H 27 H Respiratory Effort Normal Respiratory Depth Normal Respiratory Pattern Normal Tachypnea Blood Pressure 151/69 H Blood Pressure Mean 96 Pulse Ox 98 95 Oxygen Delivery Method Bi-pap Bi-pap Oxygen Flow Rate (L/min) Fraction of Inspired Oxygen (FIO2) 50 50 50 06/28/24 12:05 06/28/24 12:45 06/28/24 12:58 Temperature Temperature Source Pulse Rate 95 Respiratory Rate 34 H Respiratory Effort Respiratory Depth Respiratory Pattern Blood Pressure 140/70 H Blood Pressure Mean 90 Pulse Ox 95 Oxygen Delivery Method Venturi Mask Oxygen Flow Rate (L/min) 12 Fraction of Inspired Oxygen (FIO2) 40 50 06/28/24 14:00 Temperature Temperature Source Pulse Rate 99 Respiratory Rate 30 H Respiratory Effort Respiratory Depth Respiratory Pattern Blood Pressure 142/67 H Blood Pressure Mean 87 Pulse Ox Oxygen Delivery Method Oxygen Flow Rate (L/min) Fraction of Inspired Oxygen (FIO2) Weight Weight: 71.5 kg Body Mass Index (BMI) 29.7 Physical Exam Const alert, oriented x3 and no apparent distress Constitutional Narrative: Upper middle-aged female, mildly fatigued appearing but otherwise laying back comfortably in bed, breathing comfortably on Venturi mask currently, answering questions appropriately and in no acute distress. General Appearance: cooperative and comfortable HEENT normocephalic, head/scalp atraumatic, hearing grossly normal bilaterally and nasal mucous membranes and turbinates normal HEENT Narrative: Dry mucous membranes. Eyes PERRL, EOMs intact bilaterally and conjunctivae normal Neck full ROM Chest inspection of chest normal Resp normal respiratory effort and no use of accessory muscles Resp Narrative: Breathing comfortably on Venturi mask with oxygen saturations in the mid to high 80s. Mild to moderately diminished breath sounds bilaterally with crackles noted throughout but no wheezing noted. Cardio no murmurs and peripheral pulses 2+ throughout Cardio Narrative: Tachycardic, regular rhythm. GI normal to inspection, nondistended, normoactive bowel sounds, soft to palpation, non-tender and non-distended Back/Spine normal ROM Extremity normal to inspection, full ROM and no pedal edema Skin no rashes or lesions noted Neuro moves all extremities and no focal motor deficits Speech: speech normal Motor Exam: strength 5/5 throughout Psych mental status grossly normal Results Lab / Micro Data 06/28/24 10:57 06/28/24 10:57 Labs: Laboratory Results - last 24 hr 06/28/24 10:57: WBC 10.0, RBC 4.10 L, Hgb 11.3 L, Hct 38.4, MCV 93.7, MCH 27.6, MCHC 29.4 L, RDW Std Deviation 55.0 H, RDW Coeff of [place] 16.2 H, Plt Count 360, MPV 9.5, Immature Gran % (Auto) 0.400, Neut % (Auto) 72.0 H, Lymph % (Auto) 18.1 L, [place] % (Auto) 7.0, Eos % (Auto) 2.0, Baso % (Auto) 0.5, Absolute Neuts (auto) 7.2, Absolute Lymphs (auto) 1.80, Nucleated RBC % 0, Sodium 140, Potassium 3.8, Chloride 104, Carbon Dioxide 32.0, Anion Gap 5, BUN 14, Creatinine 0.88, Estim Creat Clear Calc 55.33, Est GFR (MDRD) Af Amer 83, Est GFR (MDRD) Non-Af 68, BUN/Creatinine Ratio 16.0, Glucose 159 H, Lactic Acid 2.7 H*, Calcium 9.8, Total Bilirubin 0.60, Direct Bilirubin 0.26, AST 9 L, ALT 22, Alkaline Phosphatase 82, Troponin I High Sens 22, B-Natriuretic Peptide 261.3 H, Total Protein 7.7, Albumin 3.2, Globulin 4.5 H Micro: Microbiology 06/28/24 10:57 Mucosa - Nose SARS-CoV-2, Influenza & RSV (PCR) - Final ABG Data ABG results: ABG 06/28/24 11:08 Specimen Type NAINA Sample Site Not entered VBG pH 7.38 VBG pO2 18 L* VBG HCO3 33 H VBG Total CO2 35 H VBG O2 Sat (Calc) 25 L VBG Base Excess 8 H POC Mix VBG pCO2 Pt Tmp 55.6 H O2 Delivery Device Not entered Crit Call To/Read Back Yes Imaging Radiology Impression Chest X-Ray 06/28/24 11:08 IMPRESSION: As above. Reading Location: [facility] Chest CTA 06/28/24 12:17 IMPRESSION: No acute thromboembolic disease. Worsening pleural-parenchymal disease as described above. Mediastinal lymphadenopathy also noted. Nodularity of the bilateral adrenal glands. Clinical follow-up is advised. One or more dose reduction techniques were used (e.g., Automated exposure control, adjustment of the mA and/or kV according to patient size, use of iterative reconstruction technique). Reading Location: [facility] Assessment & Plan Assessment/Plan (1) Acute on chronic respiratory failure with hypoxemia: PLAN: Plan Patient is a 68-year-old female who presented [facility] ED on 06/28/2024 with acute on chronic respiratory failure. 1. Acute on chronic respiratory failure in setting of severe underlying ILD with pulmonary hypertension ? Admit under inpatient status to ICU. T[employer] T[employer] Repairer consulted. Wears 6 L nasal cannula at baseline. Was requiring Venturi mask on admit at 12 L with oxygen saturations in the mid to high 80s. Suspect secondary to viral upper respiratory infection, though COVID/flu/RSV was negative. Full respiratory panel and sputum culture ordered. Procalcitonin ordered. CTA chest showed no PE but did show acute on chronic ILD changes. Will treat with IV steroids and scheduled DuoNebs for now. Wean supplemental oxygen as able. Continue home long-acting inhalers. 2. Elevated lactic acid ? Lactate 2.7 on admit. Suspect primarily due to increased work of breathing. Improved in the ED after breathing treatment and on higher level of oxygen, follow-up repeat lactic acid. 3. Mild creatinine elevation with dehydration ? Creatinine 0.88 on admit, baseline around 0.6. Dry appearing mucosa on admit. Will give 500 cc of IV fluids on admit, follow-up a.m. BMP and monitor urine output. Notably has chronic HFpEF and BNP was mildly elevated, would hold on further fluids after the 500 cc. 4. Chronic HFpEF, nonobstructive CAD, hypertension, hyperlipidemia ? Follows with [place] [facility]. Last echo in 10/18 showed EF 65% and mildly dilated RA and RV but no significant pulmonary hypertension noted. Last cath in 2022 showed 50% mid LAD lesion, no other significant vessel disease. Will continue home aspirin, statin, diltiazem and lisinopril. Will restart home Lasix tomorrow night. 5. Mild chronic anemia ? Hemoglobin 11.3 on admission, at baseline. Stable. 6. Hypothyroidism ? Continue home Synthroid. DVT prophylaxis: Lovenox CODE STATUS: Full code, verified Expected disposition: Home, TBD Total clinical time spent by myself addressing the patient's medical issues, reviewing all the data, and collaborating with patient's care team: 75 minutes. Charges/Coding Visit Charges Inpatient E&M: 53554 Init Hosp L3
[2024-06-28 15:05] LABS: Reflex Lactate? Y
--- NOTE | 2024-06-28 15:20 | CASEMGMT ---
Care Management Face to Face with patient for initial transition planning/care coordination assessment in the ED.? This typewriters functional tester introduced self and role at [facility]. Patient alert and oriented. Patient willing to participate in assessment and is able to answer all questions appropriately.? Care providers, pharmacy, and demographics verified. Admitting Diagnosis: Acute on chronic respiratory failure with hypoxemia Other diagnosis history: Including but not limited to: COPD, CHF, CHRIS, HTN, Arthritis, CAD PCP: Dr. Del Rosario Specialists: News Camera Operator: Dr. Godwin, Watch Inspector: Dr. Ojeda Preferred [facility]acy: [facility] Insurance: [employer]/Medicare Prescription Benefit:?Yes Living Will/HPOA: No and not interested. LNOK: Patient?s Emiliano Andre.? Patient does not have any children.? Patient has two brothers however doesn?t have any contact with them at this time. Living Arrangements: Patient currently resides with her .? Patient denied any environmental barriers/concerns at this time.? Transportation: Both patient and patient?s drive.? No identified barriers at this time. DME: Oxygen Concentrator through [employer], shower chair and wheelchair. HHC: Not ever used and undecided if currently interested in. SNF/Rehab: No previous SNF or Rehab. admissions. Community Resources: [facility] History: Denied Patient goals: Patient wishes to discharge home when medically ready.? Patient currently undecided about the need for HHC at this time. Patient states she has no further needs or concerns at this time. Disposition Plan: admission to acute; RN CM/SW to follow for discharge planning needs that may arise. Eva Zhou, BUSINESS SOLUTION ANALYST, RETAIL PHARMACIST
[2024-06-28] MEDS: Lactated Ringers 1,000 ML 125 ML IV (16:14)
[2024-06-28] MEDS: 0.9% Saline Lock 10 ML Syringe IV ×2 (16:19→21:06)
[2024-06-28 16:44] LABS: Procalcitonin 0.07 ng/mL (0.00-0.09)
[2024-06-28] MEDS: dilTIAZem CD 180 MG Capsule 360 MG PO (17:55)
[2024-06-28] MEDS: Aspirin E.C. 81 MG Tablet PO (17:56)
[2024-06-28] MEDS: Potassium Chloride Oral Tablet 20 MEQ PO (17:57)
[2024-06-28] MEDS: Lisinopril 10 MG Tablet PO (17:57)
[2024-06-28] MEDS: Furosemide 40 MG Tablet PO (17:58)
[2024-06-28] MEDS: TREPROSTINIL 64 MCG CART.INHAL INHALATION ×2 (18:54→22:57)
[2024-06-28] MEDS: LORazepam 2 MG/ML Syringe 0.5 MG IV (21:06)
[2024-06-28] MEDS: Pravastatin 20 MG Tablet PO (21:06)
--- NOTE | 2024-06-28 21:34 | PCMCONS.TICU ---
HPI Consult Data Date of Consult: 06/28/24 HPI Narrative HPI Narrative: TOMMY MENDEZ, is a 68 F who presents [facility] Medical History (Updated 06/28/24 @ 16:05 by Kaylen Christine) CHRIS (obstructive sleep apnea) Coronary artery disease CHRIS and COPD overlap syndrome Abnormal stress test Restrictive lung disease 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 (chronic) Dyspnea on exertion Obesity Essential (primary) hypertension Pulmonary hypertension Daytime hypersomnia Arthritis Shortness of breath on exertion On home oxygen therapy Pneumonia History of edema Chronic respiratory failure with hypoxia CHF (congestive heart failure) Hypothyroid Home Medications ?Medication ?Instructions ?Recorded ?Last Taken ?Type acetaminophen 650 mg 650 mg PO Q12H PAIN 09/21/22 06/27/24 History tablet,extended release levothyroxine 50 mcg tablet 50 mcg PO DAILY THYROID 09/21/22 06/28/24 History potassium chloride 20 mEq 20 meq PO BIDCM #30 tabs 09/27/22 06/27/24 Rx tablet,extended release(part/cryst) (Klor-Con M) calcium 333 mg-vit D3 133 2 tab PO DAILY 01/03/23 06/27/24 History unit-magnesium 133 mg-zinc 5 mg tablet (David Mag Zinc Plus D3) chlorpheniramine maleate 4 mg 4 mg PO Q4H PRN allergy symptoms 01/03/23 06/27/24 History tablet (ChlorTabs) chromium picolinate 200 mcg tablet 200 mcg PO DAILY 01/03/23 06/27/24 History echinacea 500 mg capsule 1,000 mg PO DAILY 01/03/23 06/27/24 History garlic 1,000 mg capsule 1,000 mg PO DAILY 01/03/23 06/27/24 History multivitamin (Daily Multi-Vitamin 1 tab PO DAILY 01/03/23 06/27/24 History tablet) turmeric 400 mg capsule 400 mg PO DAILY 01/03/23 06/27/24 History vitamin D3 25 mcg (1,000 unit)-vit 1 tab PO DAILY 01/03/23 06/27/24 History K2 90 mcg disintegrating tablet (D3 Plus K2 Dots) vitamins A and D3 in cod liver oil 1 cap PO DAILY 01/03/23 06/27/24 History 1,250 unit-135 unit capsule (cod liver oil) aspirin 81 mg tablet,delayed 81 mg PO DAILY 02/05/23 06/27/24 History release fluticasone 500 mcg-salmeterol 50 1 inh inhalation BID #3 ea 11/09/23 06/27/24 Rx mcg/dose blistr powdr for inhalation (Wixela Inhub) treprostinil (Tyvaso DPI) 1 ea inhalation 4X/DAY 11/14/23 06/28/24 History pravastatin 20 mg tablet 20 mg PO QHS #30 tabs 04/16/24 06/27/24 Rx diltiazem HCl 360 mg 360 mg PO QDAY #90 caps 04/30/24 06/27/24 Rx capsule,extended release 24 hr lisinopril 10 mg tablet 10 mg PO QDAY #90 tabs 06/04/24 06/27/24 Rx cyanocobalamin (vitamin B-12) 1,000 mcg PO DAILY 06/28/24 06/27/24 History 1,000 mcg capsule furosemide 40 mg tablet (Lasix) 40 mg PO BID 06/28/24 06/27/24 History vitamin E 268 mg (400 unit) capsule 268 mg PO DAILY 06/28/24 06/27/24 History Allergy/AdvReac Type Severity Reaction Status Date / Time Penicillins Allergy Hives Verified 04/30/24 13:51 Family History Father , 53 CVA (cerebral vascular accident) CAD (coronary artery disease) Myocardial infarction Brother Myocardial infarction CAD (coronary artery disease) Brother CAD (coronary artery disease) stent Brother CAD (coronary artery disease) stent Surgical History History of left heart catheterization (~04/16/23) Hx of tonsillectomy History of excision of lesion Hx of left cataract extraction Hx of right cataract extraction History of right hip replacement Social History household members: spouse housing: house Smoking Status: Former smoker how long ago did patient quit smokin plus years ago alcohol intake: current alcohol intake frequency: holidays/special occasions only substance use type: does not use caffeine: Yes Type: carbonated beverages Number of servings: 4 and coffee Objective Data Objective Data Vital Signs: Vital Signs Last response Temperature 36.6 C 06/28/24 15:51 Temperature Source Temporal 06/28/24 15:51 Pulse Rate 106 H 06/28/24 19:00 Respiratory Rate 35 H 06/28/24 19:00 Respiratory Effort Short of Breath, Labored 06/28/24 16:00 Respiratory Depth Shallow 06/28/24 16:00 Respiratory Pattern Tachypnea 06/28/24 16:00 Blood Pressure 165/81 H 06/28/24 19:00 Blood Pressure Mean 109 06/28/24 19:00 Blood Pressure Source Monitor 06/28/24 19:00 Blood Pressure Position Semi-Fowlers 06/28/24 19:00 Blood Pressure Location Left Forearm 06/28/24 19:00 Pulse Ox 90 06/28/24 19:00 Oxygen Delivery Method High Flow 06/28/24 19:00 Oxygen Flow Rate (L/min) 14 06/28/24 19:00 Fraction of Inspired Oxygen (FIO2) 50 06/28/24 17:00 I&O: I&O Last 24 Hours 06/27/24 06/28/24 06/28/24 23:59 11:59 23:59 Output Total 300 / 300 Balance -300 / -300 I&O: Total Stay 06/28/24 10:54 thru 06/28/24 18:00 Output Total 300 Balance -300 Current Meds Ordered / Administered: Current meds ordered / Administered Generic Name Dose Route Start Last Admin Trade Name Freq PRN Reason Stop Dose Admin Acetaminophen 650 mg 06/28/24 15:46 Acetaminophen 325 Mg Tablet PO Q6H PRN PRN Pain 1-10 Or Fever>100.7 Albuterol/Ipratropium 3 ml 06/28/24 15:46 Ipratropium/Albuterol Sulfate 3 Ml Ampul.Neb INHALATION Q6HWA.RT MARLYN Aspirin 81 mg 06/29/24 08:00 06/28/24 17:56 Aspirin E.C. 81 Mg Tablet PO 81 mg BREAKFAST MARLYN Administration Cyanocobalamin 1,000 mcg 06/29/24 10:00 Cyanocobalamin 500 Mcg Tablet PO DAILY MARLYN Diltiazem HCl 360 mg 06/29/24 10:00 06/28/24 17:55 Diltiazem Cd 180 Mg Capsule PO 360 mg DAILY MARLYN Administration Enoxaparin Sodium 40 mg 06/29/24 10:00 Enoxaparin 40 Mg/0.4 Ml Syringe SC DAILY [facility] Furosemide 40 mg 06/30/24 08:00 Furosemide 40 Mg Tablet PO BID@0800,1600 [facility] Protocol Sodium Chloride 100 mls @ 15 mls/hr 06/28/24 16:05 IV .Q6H40M PRN Saline Flush Sodium Chloride 100 mls @ 15 mls/hr 06/28/24 16:05 IV .Q6H40M PRN Additional IVPB Infusion Levothyroxine Sodium 50 mcg 06/29/24 06:00 Levothyroxine 50 Mcg Tablet PO DAILY@0600 [facility] Lisinopril 10 mg 06/29/24 10:00 06/28/24 17:57 Lisinopril 10 Mg Tablet PO 10 mg DAILY [facility] Administration Protocol Melatonin 3 mg 06/28/24 15:46 Melatonin 3 Mg Tablet PO QHS PRN PRN INSOMNIA Methylprednisolone 40 mg 06/28/24 22:00 06/28/24 21:06 Methylprednisolone 40 Mg/Ml Vial IV 40 mg Q8 MARLYN Administration Ondansetron HCl 4 mg 06/28/24 15:46 Ondansetron 4 Mg/2 Ml Vial IV Q8H PRN PRN NAUSEA/VOMITING Potassium Chloride 20 meq 06/29/24 17:00 06/28/24 17:57 Potassium Chloride Oral Tablet 20 Meq PO 20 meq BIDCM [facility] Administration Pravastatin Sodium 20 mg 06/28/24 22:00 06/28/24 21:06 Pravastatin 20 Mg Tablet PO 20 mg QHS MARLYN Administration Sodium Chloride 10 - 40 ml 06/28/24 16:05 06/28/24 21:06 0.9% Saline Lock 10 Ml Syringe IV 40 ml UD PRN Administration SALINE FLUSH Lab / Micro Data 06/28/24 10:57 06/28/24 10:57 Labs: Laboratory Results - last 24 hr 06/28/24 10:57: WBC 10.0, RBC 4.10 L, Hgb 11.3 L, Hct 38.4, MCV 93.7, MCH 27.6, MCHC 29.4 L, RDW Std Deviation 55.0 H, RDW Coeff of [place] 16.2 H, Plt Count 360, MPV 9.5, Immature Gran % (Auto) 0.400, Neut % (Auto) 72.0 H, Lymph % (Auto) 18.1 L, [place] % (Auto) 7.0, Eos % (Auto) 2.0, Baso % (Auto) 0.5, Absolute Neuts (auto) 7.2, Absolute Lymphs (auto) 1.80, Nucleated RBC % 0, Sodium 140, Potassium 3.8, Chloride 104, Carbon Dioxide 32.0, Anion Gap 5, BUN 14, Creatinine 0.88, Estim Creat Clear Calc 55.33, Est GFR (MDRD) Af Amer 83, Est GFR (MDRD) Non-Af 68, BUN/Creatinine Ratio 16.0, Glucose 159 H, Lactic Acid 2.7 H*, Calcium 9.8, Total Bilirubin 0.60, Direct Bilirubin 0.26, AST 9 L, ALT 22, Alkaline Phosphatase 82, Troponin I High Sens 22, B-Natriuretic Peptide 261.3 H, Total Protein 7.7, Albumin 3.2, Globulin 4.5 H 06/28/24 15:10: Procalcitonin 0.07 Micro: Microbiology 06/28/24 15:54 Mucosa - Nose Respiratory Panel (PCR) - Final 06/28/24 10:57 Mucosa - Nose SARS-CoV-2, Influenza & RSV (PCR) - Final ABG Data ABG results: ABG 06/28/24 11:08 Specimen Type NAINA Sample Site Not entered VBG pH 7.38 VBG pO2 18 L* VBG HCO3 33 H VBG Total CO2 35 H VBG O2 Sat (Calc) 25 L VBG Base Excess 8 H POC Mix VBG pCO2 Pt Tmp 55.6 H O2 Delivery Device Not entered Crit Call To/Read Back Yes Imaging Radiology Impression Chest X-Ray 06/28/24 11:08 IMPRESSION: As above. Reading [facility] Chest CTA 06/28/24 12:17 IMPRESSION: No acute thromboembolic disease. Worsening pleural-parenchymal disease as described above. Mediastinal lymphadenopathy also noted. Nodularity of the bilateral adrenal glands. Clinical follow-up is advised. One or more dose reduction techniques were used (e.g., Automated exposure control, adjustment of the mA and/or kV according to patient size, use of iterative reconstruction technique). Reading Location: [facility] Assessment and Plan . Assessment and plan: HPI 68 yo chronically ill female former smoker admitted 06/28/24 w/ acute on chronic hypoxemic respiratory failure. Prior records reviewed - she has significant chronic and progressive ILD w/ fibrosis and bronchiectasis. Prior PFT reveals significant restrictive physiology. She also has diagnosed CHRIS w/ recent AHI of 14. She has undergone TTE and RHC, confirming significant PAH w/ normal PCWP and relatively preserved CO/CI. There was no response to inhaled NO. She requires significant supplemental O2 while at home. She also uses CPAP/BiPAP at night. Also uses inhaled treprostinil. It does not appear she has a diagnosis for the ILD, but there is some ODALYS on the CT, as well as some prior e/o small airways disease. I wonder if she has ever undergone TBBx to exclude sarcoidosis. Now admitted w/ dyspnea and severe hypoxemia. VBG reveals normal ventilation. BNP not impressive. PCT low. Viral panel (-). CTA (-) for VTED, but she has severe ILD w/ traction bronchiectasis. She is receiving IV steroids. Currently awake and alert. NIV 12/6 w/ FiO2 0.5. SpO2 92%, RR around 30 BPM. EXAM GEN NAD VS as above HEENT NIV NECK supple COR RRR CHEST diminished ABD soft EXT minimal edema SKIN w/d ANISH NF ASSESSMENT 1. Acute and chronic respiratory failure w/ severe hypoxemia 2. Chronic ILD 3. PAH d/t above 4. CHRIS 5. Remote tobacco use TREATMENT PLAN -supplemental O2 as needed -NIV support for now as tolerated -precedex to facilitate above -IV steroids -follow I/O closely -continue inhaled treprostinil for now -VTE ppx Critical Care Time: 60 min The entirety of this encounter was done via Telemedicine
[2024-06-28] MEDS: dexMEDEtomidine 400 MCG in 0.9% Normal Saline (100mL Bag) 96 ML 5.3 MCG CONT INF (23:00)
[2024-06-29] VITALS (27 sets, daily range): BP systolic 95–138; BP diastolic 51–96; PULSE 72–95; RESP 12–35; TEMP 36.2–37.1; O2SAT 78–100; BMI 29.6
[2024-06-29] MEDS: Ipratropium/Albuterol Sulfate 3 ML AMPUL.NEB INHALATION ×4 (01:30→19:50)
[2024-06-29] MEDS: Levothyroxine 50 MCG Tablet PO (04:53)
[2024-06-29 05:00] LABS: Hematocrit 33.5 % (37-47); Hemoglobin 10.2 g/dL (12.0-15.0); Mean Corp Hgb Conc 30.4 g/dL (32-36); Mean Platelet Vol. 9.5 fl (6.2-12.0); Platelet Count 289 K/mm3 (150-450); RBC Distribution Width CV 15.9 % (11.6-14.6); RBC Distribution Width SD 53.9 fl (35.1-43.9); Red Blood Count 3.64 M/mm3 (4.2-5.4)
[2024-06-29 05:17] LABS: Anion Gap 5 (5-15); BUN 16 mg/dL (7-18); BUN/Creat Ratio 26.6 RATIO (10-20); Calcium,Total 8.7 mg/dL (8.5-10.1); Chloride 105 mmol/L (98-107); EST Glomerular Filtration Rate 105 mL/min (>60); Est Glom Filt Rate - Afr Amer 127 mL/min (>60); Estimated Creatinine Clearance 60.27 ml/min; Glucose 150 mg/dL (74-106); Potassium 4.4 mmol/L (3.5-5.1); Sodium Level 143 mmol/L (136-145)
[2024-06-29] MEDS: TREPROSTINIL 64 MCG CART.INHAL INHALATION ×4 (08:34→20:56)
[2024-06-29] MEDS: Aspirin E.C. 81 MG Tablet PO (08:35)
[2024-06-29] MEDS: Cyanocobalamin 500 MCG Tablet 1000 MCG PO (08:35)
[2024-06-29] MEDS: dilTIAZem CD 180 MG Capsule 360 MG PO (08:35)
[2024-06-29] MEDS: Potassium Chloride Oral Tablet 20 MEQ PO ×2 (08:36→16:34)
[2024-06-29] MEDS: Furosemide 20 MG/2 ML VIAL IV ×3 (08:36→20:57)
[2024-06-29] MEDS: 0.9% Saline Lock 10 ML Syringe IV ×2 (08:38→15:28)
--- NOTE | 2024-06-29 10:41 | PCM.PN.HOSP ---
Reason for Visit Reason for Visit: Diagnoses Acute and chronic respiratory failure with hypoxia (06/28/24) Subjective Subjective Patient was seen and examined today, she is currently on 8 L of oxygen at rest. She has a history of pulmonary fibrosis and has an appointment with a pusher runner in [place] on Sunday. Patient's home concentrator goes up to 10 L according to the patient. She is currently receiving medications for pulmonary fibrosis as an outpatient. Patient expressed frustration at her diagnosis and the fact that she could not participate in the think she used to before she got lung disease. Objective Data Objective Data Vital Signs: Vital Signs Temp Pulse Resp BP Pulse Ox O2 Del Method O2 Flow Rate 97.1 F L 94 32 H 98/54 L 92 High Flow 8 06/29/24 08:00 06/29/24 09:00 06/29/24 09:00 06/29/24 09:00 06/29/24 09:00 06/29/24 09:00 06/29/24 09:00 FiO2 50 06/29/24 07:00 Oxygen Flow Rate (L/min) 8 Oxygen Delivery Method High Flow Weight: 71.2 kg Body Mass Index (BMI) 29.6 Intake & Output: Intake and Output for Last 24 Hours 06/27/24 06/28/24 06/29/24 23:59 23:59 23:59 Intake Total 503.99 / 505.32 510.55 / 510.55 Output Total 300 / 300 750 / 750 Balance 203.99 / 205.32 -239.45 / -239.45 Lab / Micro Data 06/29/24 04:00 06/29/24 04:00 Labs: Laboratory Results - last 24 hr 06/28/24 10:57: WBC 10.0, RBC 4.10 L, Hgb 11.3 L, Hct 38.4, MCV 93.7, MCH 27.6, MCHC 29.4 L, RDW Std Deviation 55.0 H, RDW Coeff of [place] 16.2 H, Plt Count 360, MPV 9.5, Immature Gran % (Auto) 0.400, Neut % (Auto) 72.0 H, Lymph % (Auto) 18.1 L, [place] % (Auto) 7.0, Eos % (Auto) 2.0, Baso % (Auto) 0.5, Absolute Neuts (auto) 7.2, Absolute Lymphs (auto) 1.80, Nucleated RBC % 0, Sodium 140, Potassium 3.8, Chloride 104, Carbon Dioxide 32.0, Anion Gap 5, BUN 14, Creatinine 0.88, Estim Creat Clear Calc 55.33, Est GFR (MDRD) Af Amer 83, Est GFR (MDRD) Non-Af 68, BUN/Creatinine Ratio 16.0, Glucose 159 H, Lactic Acid 2.7 H*, Calcium 9.8, Total Bilirubin 0.60, Direct Bilirubin 0.26, AST 9 L, ALT 22, Alkaline Phosphatase 82, Troponin I High Sens 22, B-Natriuretic Peptide 261.3 H, Total Protein 7.7, Albumin 3.2, Globulin 4.5 H 06/28/24 15:10: Procalcitonin 0.07 06/29/24 04:00: WBC 4.0 L, RBC 3.64 L, Hgb 10.2 L, Hct 33.5 L, MCV 92.0, MCH 28.0, MCHC 30.4 L, RDW Std Deviation 53.9 H, RDW Coeff of [place] 15.9 H, Plt Count 289, MPV 9.5, Sodium 143, Potassium 4.4, Chloride 105, Carbon Dioxide 33.0 H, Anion Gap 5, BUN 16, Creatinine 0.60, Estim Creat Clear Calc 60.27, Est GFR (MDRD) Af Amer 127, Est GFR (MDRD) Non-Af 105, BUN/Creatinine Ratio 26.6 H, Glucose 150 H, Calcium 8.7 Micro: Microbiology 06/28/24 15:54 Mucosa - Nose Respiratory Panel (PCR) - Final 06/28/24 10:57 Mucosa - Nose SARS-CoV-2, Influenza & RSV (PCR) - Final ABG Data ABG results: ABG 06/28/24 11:08 Specimen Type NAINA Sample Site Not entered VBG pH 7.38 VBG pO2 18 L* VBG HCO3 33 H VBG Total CO2 35 H VBG O2 Sat (Calc) 25 L VBG Base Excess 8 H POC Mix VBG pCO2 Pt Tmp 55.6 H O2 Delivery Device Not entered Crit Call To/Read Back Yes Radiography Diagnostic Testing: Radiology Impression Chest X-Ray 06/28/24 11:08 IMPRESSION: As above. Reading Location: [facility] Chest CTA 06/28/24 12:17 IMPRESSION: No acute thromboembolic disease. Worsening pleural-parenchymal disease as described above. Mediastinal lymphadenopathy also noted. Nodularity of the bilateral adrenal glands. Clinical follow-up is advised. One or more dose reduction techniques were used (e.g., Automated exposure control, adjustment of the mA and/or kV according to patient size, use of iterative reconstruction technique). Reading Location: [facility] Physical Exam Const alert, oriented x3 and no apparent distress General Appearance: cooperative, well kempt and well developed Orientation / Consciousness: awake, oriented to person, oriented to place and oriented to time HEENT normocephalic, head/scalp atraumatic and moist oral mucous membranes Eyes PERRL, EOMs intact bilaterally and conjunctivae normal Neck supple, no JVD, thyroid normal and no carotid bruits General: trachea midline Resp normal respiratory effort, no retractions and no use of accessory muscles Resp Narrative: Patient has inspiratory rales over all lung arita Auscultation: rales bilateral and diffuse; Negative for rhonchi or wheezes Cardio regular rate, regular rhythm, S1 normal heart sound, S2 normal heart sound, no murmurs, no rub and no gallops GI normal to inspection, nondistended, normoactive bowel sounds, soft to palpation, non-tender and non-distended Extremity no clubbing, cyanosis or edema Skin no rashes or lesions noted General Skin Exam: no breakdown Neuro oriented x3, CN's II-XII intact bilaterally, moves all extremities, no focal motor deficits and no sensory deficits noted Sensorium / Orientation: awake and alert Speech: speech normal Psych affect normal Assessment & Plan Assessment/Plan (1) Restrictive lung disease: PLAN: Plan 1. Flareup of restrictive lung disease-patient is receiving IV corticosteroids and aerosol treatments, I have elected to place her on IV Lasix-she takes oral Lasix at home, this may be limited by her somewhat low blood pressure. #2 acute hypoxic respiratory failure on a backdrop of chronic hypoxic respiratory failure-pulse ox will be monitored, oxygen will be adjusted as needed #3 chronic pulmonary hypertension-patient had a right heart cath performed on 10/04/2023, results are scanned into her chart, complicates care, management, recovery, and prognosis #4 essential hypertension-patient will remain on her current medications #5 hypothyroidism-patient is on Synthroid #6 hyperlipidemia-patient is on a statin Total clinical time spent by myself addressing the patient's medical issues, reviewing her data, and collaborating with patient's care team: 35 minutes Charges/Coding Visit Charges Inpatient E&M: 91113 Subs Hosp L2
[2024-06-29] MEDS: Lisinopril 10 MG Tablet PO (16:33)
--- NOTE | 2024-06-29 18:00 | CPS ---
Patients brought in home BiPAP unit. Set up at bedside with 6lpm bleed-in. Hospital BiPAP still in room.
--- NOTE | 2024-06-29 19:35 | PN.CC_ITS ---
Objective Data Objective Data Vital Signs: Vital Signs Last response 3 Temperature 37.1 C 06/29/24 18:16 Temperature Source Oral 06/29/24 18:16 Pulse Rate 91 06/29/24 18:16 Pulse Strength Normal (2+) 06/28/24 21:47 Respiratory Rate 28 H 06/29/24 18:16 Respiratory Effort Short of Breath, Labored, Accessory Muscle Use 06/29/24 17:46 Respiratory Depth Shallow 06/29/24 12:00 Respiratory Pattern Tachypnea 06/29/24 17:46 Blood Pressure 126/55 H 06/29/24 18:16 Blood Pressure Mean 78 06/29/24 18:16 Blood Pressure Source Monitor 06/29/24 18:16 Blood Pressure Position Semi-Fowlers 06/29/24 18:16 Blood Pressure Location Right Arm 06/29/24 18:16 Pulse Ox 97 06/29/24 18:16 Oxygen Delivery Method High Flow 06/29/24 18:16 Oxygen Flow Rate (L/min) 8 06/29/24 18:16 Fraction of Inspired Oxygen (FIO2) 50 06/29/24 07:00 I&O: I&O Last 24 Hours 3 06/28/24 06/29/24 06/29/24 23:59 11:59 23:59 Intake Total 503.99 / 505.32 510.55 / 1130.55 620 / 1130.55 Output Total 300 / 300 750 / 850 100 / 850 Balance 203.99 / 205.32 -239.45 / 280.55 520 / 280.55 I&O: Total Stay 3 06/28/24 10:54 thru 06/29/24 17:45 Intake Total 1634.54 Output Total 1150 Balance 484.54 Current Meds Ordered / Administered: Current meds ordered / Administered 3 Generic Name Dose Route Start Last Admin Trade Name Freq PRN Reason Stop Dose Admin Acetaminophen 650 mg 06/28/24 15:46 Acetaminophen 325 Mg Tablet PO Q6H PRN PRN Pain 1-10 Or Fever>100.7 Albuterol/Ipratropium 3 ml 06/28/24 15:46 06/29/24 13:44 Ipratropium/Albuterol Sulfate 3 Ml Ampul.Neb INHALATION 3 ml Q6HWA.RT MARLYN Administration Aspirin 81 mg 06/29/24 08:00 06/29/24 08:35 Aspirin E.C. 81 Mg Tablet PO 81 mg BREAKFAST MARLYN Administration Cyanocobalamin 1,000 mcg 06/29/24 10:00 06/29/24 08:35 Cyanocobalamin 500 Mcg Tablet PO 1,000 mcg DAILY MARLYN Administration Diltiazem HCl 360 mg 06/29/24 10:00 06/29/24 08:35 Diltiazem Cd 180 Mg Capsule PO 360 mg DAILY MARLYN Administration Enoxaparin Sodium 40 mg 06/29/24 10:00 06/29/24 08:36 Enoxaparin 40 Mg/0.4 Ml Syringe SC Not Given DAILY [facility] Furosemide 20 mg 06/29/24 07:55 06/29/24 15:28 Furosemide 20 Mg/2 Ml Vial IV 20 mg Q8 MARLYN Administration Protocol Sodium Chloride 100 mls @ 15 mls/hr 06/28/24 16:05 IV .Q6H40M PRN Saline Flush Sodium Chloride 100 mls @ 15 mls/hr 06/28/24 16:05 IV .Q6H40M PRN Additional IVPB Infusion Levothyroxine Sodium 50 mcg 06/29/24 06:00 06/29/24 04:53 Levothyroxine 50 Mcg Tablet PO 50 mcg DAILY@0600 [facility] Administration Lisinopril 10 mg 06/29/24 17:00 06/29/24 16:33 Lisinopril 10 Mg Tablet PO 10 mg DAILY@1700 [facility] Administration Protocol Melatonin 3 mg 06/28/24 15:46 Melatonin 3 Mg Tablet PO QHS PRN PRN INSOMNIA Methylprednisolone 40 mg 06/28/24 22:00 06/29/24 13:23 Methylprednisolone 40 Mg/Ml Vial IV 40 mg Q8 MARLYN Administration Ondansetron HCl 4 mg 06/28/24 15:46 Ondansetron 4 Mg/2 Ml Vial IV Q8H PRN PRN NAUSEA/VOMITING Potassium Chloride 20 meq 06/29/24 17:00 06/29/24 16:34 Potassium Chloride Oral Tablet 20 Meq PO 20 meq BIDCM MARLYN Administration Pravastatin Sodium 20 mg 06/28/24 22:00 06/28/24 21:06 Pravastatin 20 Mg Tablet PO 20 mg QHS MARLYN Administration Sodium Chloride 10 - 40 ml 06/28/24 16:05 06/29/24 15:28 0.9% Saline Lock 10 Ml Syringe IV 20 ml UD PRN Administration SALINE FLUSH Lab / Micro Data 06/29/24 04:00 06/29/24 04:00 Labs: Laboratory Results - last 24 hr 06/29/24 04:00: WBC 4.0 L, RBC 3.64 L, Hgb 10.2 L, Hct 33.5 L, MCV 92.0, MCH 28.0, MCHC 30.4 L, RDW Std Deviation 53.9 H, RDW Coeff of [place] 15.9 H, Plt Count 289, MPV 9.5, Sodium 143, Potassium 4.4, Chloride 105, Carbon Dioxide 33.0 H, Anion Gap 5, BUN 16, Creatinine 0.60, Estim Creat Clear Calc 60.27, Est GFR (MDRD) Af Amer 127, Est GFR (MDRD) Non-Af 105, BUN/Creatinine Ratio 26.6 H, G lucose 150 H, Calcium 8.7 Micro: Microbiology 06/28/24 15:54 Mucosa - Nose Respiratory Panel (PCR) - Final Assessment and Plan . Assessment and plan: HPI 68 yo chronically ill female former smoker admitted 06/28/24 w/ acute on chronic hypoxemic respiratory failure. Prior records reviewed - she has significant chronic and progressive ILD w/ fibrosis and bronchiectasis. Prior PFT reveals significant restrictive physiology. She also has diagnosed CHRIS w/ recent AHI of 14. She has undergone TTE and RHC, confirming significant PAH w/ normal PCWP and relatively preserved CO/CI. There was no response to inhaled NO. She requires significant supplemental O2 while at home. She also uses CPAP/BiPAP at night. Also uses inhaled treprostinil. It does not appear she has a diagnosis for the ILD, but there is some ODALYS on the CT, as well as some prior e/o small airways disease. I wonder if she has ever undergone TBBx to exclude sarcoidosis. Now admitted w/ dyspnea and severe hypoxemia. VBG reveals normal ventilation. BNP not impressive. PCT low. Viral panel (-). CTA (-) for VTED, but she has severe ILD w/ traction bronchiectasis. She is receiving IV steroids. Currently awake and alert. NIV 12/6 w/ FiO2 0.5. SpO2 92%, RR around 30 BPM. 06/29/24 She looks and feels better Breathing high-flow O2 via N/C Any activity results in significant hypoxemia She uses CPAP w/ sleep chronically - continue for now No distress despite intermittent hypoxemia She apparently has referral appointments w/ [facility] upcoming It sounds like there is not a diagnosed etiology at this point for her ILD EXAM GEN NAD VS as above HEENT O2 N/C NECK supple COR RRR CHEST diminished ABD soft EXT minimal edema SKIN w/d ANISH NF ASSESSMENT 1. Acute and chronic respiratory failure w/ severe hypoxemia 2. Chronic ILD 3. PAH d/t above 4. CHRIS 5. Remote tobacco use TREATMENT PLAN -supplemental O2 as needed -CPAP w/ sleep for CHRIS -precedex as needed -IV steroids as is for now -follow I/O closely -continue inhaled treprostinil for now -VTE ppx Critical Care Time: 50 min The entirety of this encounter was done via Telemedicine
[2024-06-29] MEDS: Pravastatin 20 MG Tablet PO (20:56)
[2024-06-29] MEDS: LORazepam 2 MG/ML Syringe 0.5 MG IV (23:42)
[2024-06-29] MEDS: Acetaminophen 325 MG Tablet 650 MG PO (23:45)
[2024-06-29 23:48] LABS: Allen Test Positive; Base Excess 12 mmol/L (-2 to +2); Bicarbonate 36.5 mmol/L (22-26); Blood Gas Specimen Type ART; Mode Not entered; O2 Delivery Device CPAP; PO2 74 mmHG (75-100); SITE Not entered; SO2 95 % (95-99); Total Carbon Dioxide 38 mmol/L; pCO2 56.1 mmHg (35-45); pH 7.42 (7.35-7.45)
[2024-06-30] VITALS (21 sets, daily range): BP systolic 119–148; BP diastolic 53–75; PULSE 86–104; RESP 20–34; TEMP 36.3–36.7; O2SAT 91–98; BMI 29.6
--- NOTE | 2024-06-30 00:23 | CPS ---
Patient on own PAP machine for the night with 10L bleed.
[2024-06-30] MEDS: Levothyroxine 50 MCG Tablet PO (06:20)
[2024-06-30] MEDS: Furosemide 20 MG/2 ML VIAL IV ×3 (06:20→22:59)
[2024-06-30] MEDS: Ipratropium/Albuterol Sulfate 3 ML AMPUL.NEB INHALATION ×3 (07:27→20:35)
[2024-06-30] MEDS: Enoxaparin 40 MG/0.4 ML Syringe SC (09:16)
[2024-06-30] MEDS: TREPROSTINIL 64 MCG CART.INHAL INHALATION ×4 (09:16→23:06)
[2024-06-30] MEDS: Cyanocobalamin 500 MCG Tablet 1000 MCG PO (09:16)
[2024-06-30] MEDS: Potassium Chloride Oral Tablet 20 MEQ PO ×2 (09:25→17:20)
[2024-06-30] MEDS: dilTIAZem CD 180 MG Capsule 360 MG PO (09:25)
[2024-06-30] MEDS: Aspirin E.C. 81 MG Tablet PO (09:25)
--- NOTE | 2024-06-30 13:32 | PN_ITS ---
Subjective Subjective Patient seen and examined. She just finished using the commode and so she feels short of breath. His saturation was done in the mid 80s. She said this happened every time she exerted herself. She denies any chest pain admits to a cough which is dry. Review of systems otherwise negative. She remains tachypneic and tachycardic. Objective Data Objective Data Vital Signs: Vital Signs Temp Pulse Resp BP Pulse Ox O2 Del Method O2 Flow Rate 97.7 F L 104 H 24 H 143/68 H 91 High Flow 8 06/30/24 12:00 06/30/24 12:51 06/30/24 12:51 06/30/24 12:00 06/30/24 12:00 06/30/24 12:00 06/30/24 12:00 FiO2 50 06/29/24 07:00 Oxygen Flow Rate (L/min) 8 Oxygen Delivery Method High Flow Weight: 156 lb 15.506 oz Body Mass Index (BMI) 29.6 Intake & Output: Intake and Output for Last 24 Hours 06/28/24 06/29/24 06/30/24 23:59 23:59 23:59 Intake Total 503.99 / 505.32 1130.55 / 1130.55 240 / 240 Output Total 300 / 300 850 / 850 Balance 203.99 / 205.32 280.55 / 280.55 240 / 240 Lab / Micro Data 06/29/24 04:00 06/29/24 04:00 Micro: Microbiology 06/28/24 15:54 Mucosa - Nose Respiratory Panel (PCR) - Final 06/28/24 10:57 Mucosa - Nose SARS-CoV-2, Influenza & RSV (PCR) - Final ABG Data ABG results: ABG 06/29/24 23:45 Specimen Type ART Sample Site Not entered pH 7.42 Bicarbonate Actual 36.5 H Total CO2 38 Base Excess 12 H O2 Saturation 95 O2 % 10.0 ABG pCO2 56.1 H ABG pO2 74 L Leonard Test Positive O2 Delivery Device CPAP Vent Mode Not entered Physical Exam Const alert, oriented x3 and no apparent distress General Appearance: cooperative HEENT normocephalic, head/scalp atraumatic and moist oral mucous membranes Eyes PERRL and EOMs intact bilaterally Neck no lymphadenopathy and supple Lymph Lymphatic: no lymphadenopathy noted and no lymphedema noted Resp Resp Narrative: mildly diminished breath sounds bilaterally, minimal wheezing, no crackles. On 10L of oxygen by nasal canula. tachypneic. Cardio S1 normal heart sound, S2 normal heart sound and no murmurs Rate: tachycardic Peripheral Pulses: pulses 2+ throughout GI normal to inspection, nondistended, normoactive bowel sounds, soft to palpation, non-tender and non-distended Extremity normal capillary refill, no clubbing, cyanosis or edema and no calf tenderness General Extremity: no tenderness to palpation of joints or extremities Skin General Skin Exam: no breakdown Neuro CN's II-XII intact bilaterally, no focal motor deficits and no sensory deficits noted Motor Exam: strength 5/5 throughout and general weakness Psych thought process normal and cooperative Appearance: appropriate Assessment & Plan Assessment/Plan (1) Acute on chronic respiratory failure with hypoxemia: (2) Restrictive lung disease: PLAN: Plan #Acute on chronic hypoxic respiratory failure due to flare up of interstitial lung disease * was on 10L of oxygen this morning during review, now down to 8L of oxygen. still gets very short of breath with slight exertion. * also on lasix. * BP still running low so lasix held * pulmonology on board. * CTA of the chest done showed no evidence of PE but showed worsening pleural parenchymal disease and mediastinal lymphadenopathy * On inhaled treprostinil * #Chronic pulmonary hypertension * Had a right heart cath in September 2023 which showed evidence of pulmonary hypertension. * This is likely due to the interstitial lung disease. #Chronic HFpEF: on lasix. not in exacerbation #Benign essential hypertension: On lisinopril and Lasix as well as Cardizem #Hypothyroidism: On Synthroid #Hyperlipidemia: On statin DVT prophylaxis Lovenox Charges/Coding Visit Charges Inpatient E&M: 57976 Subs Hosp L3
--- NOTE | 2024-06-30 14:43 | CHAPLAIN ---
Type of Pastoral Visit _x__ Initial Visit ___ Follow-up Visit ___ On-call Visit ___ General Patient Visit ___ Spiritual Assessment ___ Family Conference ___ Bereavement ___ Rapid Response ___ Code Blue ___ Other (describe below) Pastoral Care Referral From _x__ Patient ___ Family ___ Nurse ___ Physician ___ [employer] Mill Operator Helper ___ Field Staff Manager ___ Other (describe below) Sacrament/Intervention _x__ Active listening ___ Anointing ___ Holiness ___ Bereavement ___ Communion ___ Leyla exploration ___ _x__ Life review _x__ Prayer ___ Reconciliation ___ Sacrament of Sick _x__ Supportive presence ___ Wedding ___ Other (describe below) Pastoral Comments patient talks openly about her frustrations with her recent months of limitations and her anxieties about life ahead; pt had goals of travel and activity in nursing home but these are probably not going to be fulfilled; discussion on what is positive/good and what activities she can continue to do in limitations; pt is asked about her leyla and if that is a help; pt is unsure about how her leyla helps but is a member of a local [employer] and has that support; pt talks about life experiences and disappointments; time to listen, focus on the good, and prayer is offered and received
[2024-06-30] MEDS: Lisinopril 10 MG Tablet PO (17:20)
[2024-06-30] MEDS: Pravastatin 20 MG Tablet PO (22:58)
[2024-06-30] MEDS: 0.9% Saline Lock 10 ML Syringe IV (23:02)
[2024-07-01] VITALS (17 sets, daily range): BP systolic 135–162; BP diastolic 64–76; PULSE 92–105; RESP 16–28; TEMP 35.7–37; O2SAT 90–99; BMI 28.3
[2024-07-01] MEDS: Levothyroxine 50 MCG Tablet PO (05:24)
[2024-07-01] MEDS: Furosemide 20 MG/2 ML VIAL IV (05:24)
[2024-07-01] MEDS: 0.9% Saline Lock 10 ML Syringe IV ×2 (05:34→21:28)
--- NOTE | 2024-07-01 06:52 | CPS ---
Pt brought her own bipap machine in. and used it most of the night .
[2024-07-01 07:13] LABS: Absolute Lymphocyte Count 0.32 X10^3/uL (0.83-4.51); Absolute Neutrophil Count 10.7 X10^3/uL (2.0-7.7); Basophil# 0.01 X10^3/uL; Basophil% 0.1 % (0-1); Eosinophil# 0.04 X10^3/uL; Eosinophils% 0.3 % (0-5); Hematocrit 37.7 % (37-47); Hemoglobin 11.3 g/dL (12.0-15.0); Lymphocyte # 0.32 X10^3/ul (0.83-4.51); Lymphocyte % 2.8 % (19-41); Mean Corpuscular Hgb 27.6 pg (27.0-32.0); Mean Corpuscular Volume 92.2 fL (81-99); Mean Platelet Vol. 9.2 fl (6.2-12.0); Monocyte# 0.53 X10^3/uL; Monocyte% 4.6 % (0-10); NRBC Flagged by Analyzer 0 % (0-5); Neutrophil # 10.66 X10^3/uL (2.7-7.7); Neutrophil % 91.7 % (47-70); POSITIVE DIFFERENTIAL YES; Platelet Count 373 K/mm3 (150-450); Red Blood Count 4.09 M/mm3 (4.2-5.4); White Blood Count 11.6 K/mm3 (4.4-11.0)
[2024-07-01] MEDS: Ipratropium/Albuterol Sulfate 3 ML AMPUL.NEB INHALATION ×3 (07:34→20:41)
[2024-07-01 07:42] LABS: Anion Gap 6 (5-15); BUN 22 mg/dL (7-18); BUN/Creat Ratio 30.8 RATIO (10-20); Calcium,Total 9.1 mg/dL (8.5-10.1); Chloride 97 mmol/L (98-107); Creatinine, Serum 0.71 mg/dL (0.55-1.02); EST Glomerular Filtration Rate 86 mL/min (>60); Est Glom Filt Rate - Afr Amer 104 mL/min (>60); Estimated Creatinine Clearance 59.42 ml/min; Glucose 173 mg/dL (74-106); Potassium 3.7 mmol/L (3.5-5.1); Sodium Level 140 mmol/L (136-145)
[2024-07-01] MEDS: Potassium Chloride Oral Tablet 20 MEQ PO ×2 (08:38→18:31)
[2024-07-01] MEDS: Cyanocobalamin 500 MCG Tablet 1000 MCG PO (08:38)
[2024-07-01] MEDS: dilTIAZem CD 180 MG Capsule 360 MG PO (08:38)
[2024-07-01] MEDS: Aspirin E.C. 81 MG Tablet PO (08:39)
[2024-07-01] MEDS: TREPROSTINIL 64 MCG CART.INHAL INHALATION ×4 (08:40→22:10)
--- NOTE | 2024-07-01 10:33 | CASEMGMT ---
Tertiary facilities in-network: [facility], [facility], [facility], , [facility], [facility]
--- NOTE | 2024-07-01 13:19 | PN_ITS ---
Subjective Subjective Patient seen and examined. She still complained of shortness of breath which was worsened with exertion. She was on 8 L of oxygen at time of review. She denied any nausea or vomiting, fever or chills or cough. Review of systems otherwise negative. Objective Data Objective Data Vital Signs: Vital Signs Temp Pulse Resp BP Pulse Ox O2 Del Method O2 Flow Rate 98.6 F 92 24 H 150/67 H 98 High Flow 10 07/01/24 12:00 07/01/24 12:00 07/01/24 12:00 07/01/24 12:00 07/01/24 12:00 07/01/24 13:17 07/01/24 13:17 FiO2 50 06/29/24 07:00 Oxygen Flow Rate (L/min) 10 Oxygen Delivery Method High Flow Weight: 150 lb 2.157 oz Body Mass Index (BMI) 28.3 Intake & Output: Intake and Output for Last 24 Hours 06/29/24 06/30/24 07/01/24 23:59 23:59 23:59 Intake Total 1130.55 / 1130.55 720 / 960 840 / 840 Output Total 850 / 850 1000 / 1000 Balance 280.55 / 280.55 720 / 810 -160 / -160 Lab / Micro Data 07/01/24 06:08 07/01/24 06:08 Labs: Laboratory Results - last 24 hr 07/01/24 06:08: WBC 11.6 H, RBC 4.09 L, Hgb 11.3 L, Hct 37.7, MCV 92.2, MCH 27.6, MCHC 30.0 L, RDW Std Deviation 54.0 H, RDW Coeff of [place] 16.0 H, Plt Count 373, MPV 9.2, Immature Gran % (Auto) 0.500, Neut % (Auto) 91.7 H, Lymph % (Auto) 2.8 L, [place] % (Auto) 4.6, Eos % (Auto) 0.3, Baso % (Auto) 0.1, Absolute Neuts (auto) 10.7 H, Absolute Lymphs (auto) 0.32 L, Nucleated RBC % 0, Sodium 140, Potassium 3.7, Chloride 97 L, Carbon Dioxide 37.0 H, Anion Gap 6, BUN 22 H, Creatinine 0.71, Estim Creat Clear Calc 59.42, Est GFR (MDRD) Af Amer 104, Est GFR (MDRD) Non-Af 86, BUN/Creatinine Ratio 30.8 H, Glucose 173 H, Calcium 9.1 Micro: Microbiology 06/29/24 14:25 Sputum, Expectorated/Coughed Gram Stain - Final 06/29/24 14:25 Sputum, Expectorated/Coughed Respiratory Culture - Final Mixed normal respiratory alf. No Streptococcus pneumoniae, beta-hemolytic Streptococcus or Staphylococcus aureus isolated. 06/28/24 11:05 Blood Culture (Wb) - Anticubital Right Blood Culture - Preliminary No growth in 48 hours. 06/28/24 11:15 Blood Culture (Wb) - Left Forearm Blood Culture - Preliminary No growth in 48 hours. 06/28/24 15:54 Mucosa - Nose Respiratory Panel (PCR) - Final 06/28/24 10:57 Mucosa - Nose SARS-CoV-2, Influenza & RSV (PCR) - Final Physical Exam Const alert, oriented x3 and no apparent distress General Appearance: cooperative, comfortable and well developed Orientation / Consciousness: awake HEENT normocephalic, head/scalp atraumatic, hearing grossly normal bilaterally, nasal mucous membranes and turbinates normal and moist oral mucous membranes Eyes PERRL, EOMs intact bilaterally and conjunctivae normal Neck full ROM, no lymphadenopathy, supple, no JVD, thyroid normal and no carotid bruits General: trachea midline Lymph Lymphatic: no lymphadenopathy noted and no lymphedema noted Resp normal respiratory effort, no retractions and no use of accessory muscles Resp Narrative: mildly diminished breath sounds bilaterally, minimal wheezing, no crackles. On 10 L of oxygen by nasal canula. tachypneic. Effort and Inspection: tachypneic Auscultation: rales bilateral and diffuse; Negative for rhonchi or wheezes Cardio regular rate, regular rhythm, S1 normal heart sound, S2 normal heart sound, no murmurs, no rub, no gallops and peripheral pulses 2+ throughout Cardio Narrative: Tachycardic, regular rhythm. Peripheral Pulses: pulses 2+ throughout GI normal to inspection, nondistended, normoactive bowel sounds, soft to palpation, non-tender and non-distended Back/Spine normal ROM Extremity normal to inspection, full ROM, normal capillary refill, no clubbing, cyanosis or edema, no calf tenderness and no pedal edema General Extremity: no tenderness to palpation of joints or extremities Skin no rashes or lesions noted General Skin Exam: no breakdown Neuro oriented x3, CN's II-XII intact bilaterally, moves all extremities, no focal motor deficits and no sensory deficits noted Sensorium / Orientation: awake and alert Speech: speech normal Motor Exam: strength 5/5 throughout and general weakness Psych mental status grossly normal, thought process normal, cooperative and affect normal Appearance: appropriate Assessment & Plan Assessment/Plan (1) Acute on chronic respiratory failure with hypoxemia: (2) Restrictive lung disease: PLAN: Plan #Acute on chronic hypoxic respiratory failure due to flare up of interstitial lung disease * Still on 10 L of oxygen and still gets very short of breath with slight exertion. * also on lasix. * pulmonology on board. Await pulmonology recs today * CTA of the chest done showed no evidence of PE but showed worsening pleural parenchymal disease and mediastinal lymphadenopathy * On inhaled treprostinil * In positive fluid balance by about 1 L. Will switch Lasix from IV 20 mg every 8 to IV Lasix 40 mg twice daily. * #Chronic pulmonary hypertension * Had a right heart cath in September 2023 which showed evidence of pulmonary hypertension. * This is likely due to the interstitial lung disease. #Chronic HFpEF: on lasix. not in exacerbation #Benign essential hypertension: On lisinopril and Lasix as well as Cardizem #Hypothyroidism: On Synthroid #Hyperlipidemia: On statin DVT prophylaxis Lovenox Charges/Coding Visit Charges Inpatient E&M: 91110 Subs Hosp L2
--- NOTE | 2024-07-01 14:17 | PCM.PN.INT ---
Assessment & Plan Assessment/Plan (1) Acute on chronic respiratory failure with hypoxemia: PLAN: Plan RECOMMENDATIONS: 1. Continue ongoing attempts at diuresis as tolerated by hemodynamics and renal function. 2. Continue scheduled IV steroids. 3. Continue to wean supplemental oxygen to maintain saturations at or above 90%. 4. Continue Tyvaso per home regimen. 5. If no improvement in respiratory status with ongoing diuresis, recommend transfer to [facility] For further pulmonary hypertension workup/intervention. IMPRESSIONS: 1. Acute on chronic hypoxemic respiratory failure [place] to be secondary to acute on chronic PH-ILD. The patient is currently being followed by Dr. Godwin in [facility] And has an established history of precapillary pulmonary hypertension in the setting of extensive interstitial lung disease with findings suggestive of chronic hypersensitivity pneumonitis. I agree with continuing aggressive attempts at diuresis, as tolerated by hemodynamics and renal function. In addition, it is reasonable to continue scheduled IV steroids. The patient will be maintained on her home Tyvaso regimen at 64 mcg as tolerated. If the patient does not begin to improve from a respiratory perspective, she may require transfer for further evaluation and intervention from a pulmonary hypertension perspective. Of note, the patient does have a baseline supplemental oxygen requirement of 6 L/min. 2. History of heart failure with preserved ejection fraction/hypertension/hyperlipidemia/hypothyroidism Complicates care, management, recovery and prognosis. Continue home medications as indicated. This note was generated with [employer] dictation software. It may contain incorrect words, spelling, and punctuation that were not noted in checking the note before signing. Subjective Subjective The patient was seen and examined at the bedside this morning. Events from the last 24 hours have been reviewed. The patient is currently afebrile, hemodynamically stable and maintaining appropriate oxygen saturations on 8 L/min via nasal cannula. The patient is currently documented to be overall net +1 L for the hospitalization. Creatinine is within normal limits. The patient reported that she typically utilizes 6 L/min of supplemental oxygen at her baseline. She does report ongoing exertional shortness of breath. The patient reported that she was scheduled to follow-up with her pulmonary hypertension specialist, Dr. Godwin, tomorrow. The patient has a known history of pulmonary hypertension related interstitial lung disease. The patient reported that she is already titrated her Tyvaso to the prescribed 64 mcg. The patient's ILD is felt to be secondary to possible chronic HP. Objective Data Objective Data The patient's most recent lab work, culture data and imaging studies have all been personally reviewed. Vital Signs: Vital Signs Temp Pulse Resp BP Pulse Ox O2 Del Method O2 Flow Rate 98.6 F 92 24 H 150/67 H 98 High Flow 10 07/01/24 12:00 07/01/24 12:00 07/01/24 12:00 07/01/24 12:00 07/01/24 12:00 07/01/24 13:17 07/01/24 13:17 FiO2 50 06/29/24 07:00 Oxygen Flow Rate (L/min) 10 Oxygen Delivery Method High Flow Weight: 150 lb 2.157 oz Body Mass Index (BMI) 28.3 Intake & Output: Intake and Output for Last 24 Hours 06/29/24 06/30/24 07/01/24 23:59 23:59 23:59 Intake Total 1130.55 / 1130.55 720 / 960 840 / 840 Output Total 850 / 850 1000 / 1000 Balance 280.55 / 280.55 720 / 810 -160 / -160 Lab / Micro Data 07/01/24 06:08 07/01/24 06:08 Labs: Laboratory Results - last 24 hr 07/01/24 06:08: WBC 11.6 H, RBC 4.09 L, Hgb 11.3 L, Hct 37.7, MCV 92.2, MCH 27.6, MCHC 30.0 L, RDW Std Deviation 54.0 H, RDW Coeff of [place] 16.0 H, Plt Count 373, MPV 9.2, Immature Gran % (Auto) 0.500, Neut % (Auto) 91.7 H, Lymph % (Auto) 2.8 L, [place] % (Auto) 4.6, Eos % (Auto) 0.3, Baso % (Auto) 0.1, Absolute Neuts (auto) 10.7 H, Absolute Lymphs (auto) 0.32 L, Nucleated RBC % 0, Sodium 140, Potassium 3.7, Chloride 97 L, Carbon Dioxide 37.0 H, Anion Gap 6, BUN 22 H, Creatinine 0.71, Estim Creat Clear Calc 59.42, Est GFR (MDRD) Af Amer 104, Est GFR (MDRD) Non-Af 86, BUN/Creatinine Ratio 30.8 H, Glucose 173 H, Calcium 9.1 Micro: Microbiology 06/29/24 14:25 Sputum, Expectorated/Coughed Gram Stain - Final 06/29/24 14:25 Sputum, Expectorated/Coughed Respiratory Culture - Final Mixed normal respiratory alf. No Streptococcus pneumoniae, beta-hemolytic Streptococcus or Staphylococcus aureus isolated. 06/28/24 11:05 Blood Culture (Wb) - Anticubital Right Blood Culture - Preliminary No growth in 48 hours. 06/28/24 11:15 Blood Culture (Wb) - Left Forearm Blood Culture - Preliminary No growth in 48 hours. 06/28/24 15:54 Mucosa - Nose Respiratory Panel (PCR) - Final 06/28/24 10:57 Mucosa - Nose SARS-CoV-2, Influenza & RSV (PCR) - Final Physical Exam Const alert and no apparent distress General Appearance: cooperative HEENT normocephalic, head/scalp atraumatic and moist oral mucous membranes Eyes PERRL, EOMs intact bilaterally and conjunctivae normal Neck supple General: trachea midline Chest inspection of chest normal Resp Effort and Inspection: tachypneic Auscultation: rales and diminished lung sounds Cardio regular rate and regular rhythm GI normal to inspection, nondistended, normoactive bowel sounds Extremity no clubbing, cyanosis or edema Skin no rashes or lesions noted Neuro CN's II-XII intact bilaterally, moves all extremities and no focal motor deficits Psych cooperative and affect normal Charges/Coding Visit Charges Inpatient E&M: 39570 Subs Hosp L2
[2024-07-01] MEDS: Lisinopril 10 MG Tablet PO ×2 (18:22→18:30)
[2024-07-01] MEDS: Furosemide 20 MG/2 ML VIAL 40 MG IV (18:30)
[2024-07-01] MEDS: Furosemide 40 MG/4 ML Vial IV (18:35)
[2024-07-01] MEDS: Pravastatin 20 MG Tablet PO (21:26)
[2024-07-02] VITALS (8 sets, daily range): BP systolic 135–151; BP diastolic 63–89; PULSE 90–108; RESP 15–24; TEMP 36.2–36.7; O2SAT 89–98; BMI 28.0
[2024-07-02] MEDS: Levothyroxine 50 MCG Tablet PO (05:41)
[2024-07-02] MEDS: 0.9% Saline Lock 10 ML Syringe IV ×5 (05:42→21:59)
[2024-07-02 06:47] LABS: Absolute Lymphocyte Count 0.35 X10^3/uL (0.83-4.51); Absolute Neutrophil Count 8.8 X10^3/uL (2.0-7.7); Eosinophil# 0.01 X10^3/uL; Eosinophils% 0.1 % (0-5); Hematocrit 38.8 % (37-47); Hemoglobin 11.5 g/dL (12.0-15.0); Lymphocyte # 0.35 X10^3/ul (0.83-4.51); Lymphocyte % 3.6 % (19-41); Mean Corp Hgb Conc 29.6 g/dL (32-36); Mean Corpuscular Hgb 26.9 pg (27.0-32.0); Mean Corpuscular Volume 90.7 fL (81-99); Monocyte# 0.47 X10^3/uL; Monocyte% 4.9 % (0-10); NRBC Flagged by Analyzer 0 % (0-5); Neutrophil # 8.75 X10^3/uL (2.7-7.7); Neutrophil % 90.8 % (47-70); POSITIVE DIFFERENTIAL YES; Platelet Count 353 K/mm3 (150-450); RBC Distribution Width SD 53.3 fl (35.1-43.9); Red Blood Count 4.28 M/mm3 (4.2-5.4); White Blood Count 9.6 K/mm3 (4.4-11.0)
[2024-07-02 07:01] LABS: Anion Gap 6 (5-15); BUN 22 mg/dL (7-18); BUN/Creat Ratio 29.2 RATIO (10-20); Calcium,Total 9.6 mg/dL (8.5-10.1); Chloride 97 mmol/L (98-107); Creatinine, Serum 0.75 mg/dL (0.55-1.02); EST Glomerular Filtration Rate 81 mL/min (>60); Est Glom Filt Rate - Afr Amer 98 mL/min (>60); Estimated Creatinine Clearance 59.08 ml/min; Glucose 170 mg/dL (74-106); Potassium 3.7 mmol/L (3.5-5.1); Sodium Level 141 mmol/L (136-145)
[2024-07-02] MEDS: Ipratropium/Albuterol Sulfate 3 ML AMPUL.NEB INHALATION ×3 (07:15→20:23)
[2024-07-02] MEDS: Cyanocobalamin 500 MCG Tablet 1000 MCG PO (08:51)
[2024-07-02] MEDS: dilTIAZem CD 180 MG Capsule 360 MG PO (08:51)
[2024-07-02] MEDS: Potassium Chloride Oral Tablet 20 MEQ PO ×2 (08:51→17:53)
[2024-07-02] MEDS: Furosemide 40 MG/4 ML Vial IV ×2 (08:51→17:54)
[2024-07-02] MEDS: Aspirin E.C. 81 MG Tablet PO (08:51)
[2024-07-02] MEDS: TREPROSTINIL 64 MCG CART.INHAL INHALATION ×4 (08:52→22:01)
--- NOTE | 2024-07-02 10:38 | PN_ITS ---
Subjective Subjective Patient seen and examined. She still complained of shortness of breath. She is now on 7L of oxygen. She is in positive fluid balance by ~1.5 L of oxygen. She denies any palpitations, dizziness, nausea, vomiting or any other symptoms. Review of systems is otherwise negative. Objective Data Objective Data Vital Signs: Vital Signs Temp Pulse Resp BP Pulse Ox O2 Del Method O2 Flow Rate 98.1 F 108 H 24 H 147/89 H 91 High Flow 7 07/02/24 05:52 07/02/24 07:15 07/02/24 07:15 07/02/24 05:52 07/02/24 07:15 07/02/24 07:15 07/02/24 07:15 FiO2 50 06/29/24 07:00 Oxygen Flow Rate (L/min) 7 Oxygen Delivery Method High Flow Weight: 148 lb 5.938 oz Body Mass Index (BMI) 28.0 Intake & Output: Intake and Output for Last 24 Hours 06/30/24 07/01/24 07/02/24 23:59 23:59 23:59 Intake Total 720 / 960 1200 / 1200 Output Total 1000 / 1000 Balance 720 / 810 200 / 200 Lab / Micro Data 07/02/24 06:09 07/02/24 06:09 Labs: Laboratory Results - last 24 hr 07/02/24 06:09: WBC 9.6, RBC 4.28, Hgb 11.5 L, Hct 38.8, MCV 90.7, MCH 26.9 L, M CHC 29.6 L, RDW Std Deviation 53.3 H, RDW Coeff of [place] 16.0 H, Plt Count 353, MPV 9.0, Immature Gran % (Auto) 0.600, Neut % (Auto) 90.8 H, Lymph % (Auto) 3.6 L, [place] % (Auto) 4.9, Eos % (Auto) 0.1, Baso % (Auto) 0.0, Absolute Neuts (auto) 8.8 H, Absolute Lymphs (auto) 0.35 L, Nucleated RBC % 0, Sodium 141, Potassium 3.7, Chloride 97 L, Carbon Dioxide 38.0 H, Anion Gap 6, BUN 22 H, Creatinine 0.75, Estim Creat Clear Calc 59.08, Est GFR (MDRD) Af Amer 98, Est GFR (MDRD) Non-Af 81, BUN/Creatinine Ratio 29.2 H, Glucose 170 H, Calcium 9.6 Micro: Microbiology 06/29/24 14:25 Sputum, Expectorated/Coughed Gram Stain - Final 06/29/24 14:25 Sputum, Expectorated/Coughed Respiratory Culture - Final Mixed normal respiratory alf. No Streptococcus pneumoniae, beta-hemolytic Streptococcus or Staphylococcus aureus isolated. 06/28/24 11:05 Blood Culture (Wb) - Anticubital Right Blood Culture - Preliminary No growth in 48 hours. 06/28/24 11:15 Blood Culture (Wb) - Left Forearm Blood Culture - Preliminary No growth in 48 hours. 06/28/24 15:54 Mucosa - Nose Respiratory Panel (PCR) - Final 06/28/24 10:57 Mucosa - Nose SARS-CoV-2, Influenza & RSV (PCR) - Final Physical Exam Const alert, oriented x3 and no apparent distress General Appearance: cooperative, comfortable, well kempt and well developed Orientation / Consciousness: awake, oriented to person, oriented to place and oriented to time HEENT normocephalic, head/scalp atraumatic, hearing grossly normal bilaterally, nasal mucous membranes and turbinates normal and moist oral mucous membranes Eyes PERRL, EOMs intact bilaterally and conjunctivae normal Neck full ROM, no lymphadenopathy, supple, no JVD, thyroid normal and no carotid bruits General: trachea midline Lymph Lymphatic: no lymphadenopathy noted and no lymphedema noted Chest inspection of chest normal Resp normal respiratory effort Resp Narrative: mildly diminished breath sounds bilaterally, minimal wheezing, no crackles. On 7 L of oxygen by nasal canula. Still tachypneic. Effort and Inspection: tachypneic Cardio regular rhythm, S1 normal heart sound, S2 normal heart sound, no murmurs, no rub, no gallops and peripheral pulses 2+ throughout Cardio Narrative: Tachycardic, regular rhythm. Rate: tachycardic Peripheral Pulses: pulses 2+ throughout GI normal to inspection, nondistended, normoactive bowel sounds, soft to palpation, non-tender and non-distended Back/Spine normal ROM Extremity normal to inspection, full ROM, normal capillary refill, no clubbing, cyanosis or edema, no calf tenderness and no pedal edema General Extremity: no tenderness to palpation of joints or extremities Skin no rashes or lesions noted General Skin Exam: no breakdown Neuro oriented x3, CN's II-XII intact bilaterally, moves all extremities, no focal motor deficits and no sensory deficits noted Sensorium / Orientation: awake and alert Speech: speech normal Motor Exam: strength 5/5 throughout and general weakness Psych mental status grossly normal, thought process normal, cooperative and affect normal Appearance: appropriate Assessment & Plan Assessment/Plan (1) Acute on chronic respiratory failure with hypoxemia: (2) Restrictive lung disease: PLAN: Plan #Acute on chronic hypoxic respiratory failure due to flare up of interstitial lung disease * Now down to 7 L of oxygen though she gets short of breath with exertion. * also on lasix. * pulmonology on board. * CTA of the chest done showed no evidence of PE but showed worsening pleural parenchymal disease and mediastinal lymphadenopathy * On inhaled treprostinil * in positive balance by 1.5L of fluid today. Continue diuresing with IV lasix. * per pulmonology, if no improvement in respiratory status with diuresis, to transer to [facility] for further workup. Patient is however currently improving with her oxygen requirement down to 7L. She is usually on 6L of oxygen at home. * #Chronic pulmonary hypertension * Had a right heart cath in September 2023 which showed evidence of pulmonary hypertension. * This is likely due to the interstitial lung disease. #Metabolic alkalosis * likely due to diuresis and hypercapnia. ABG from 06/29/2024 showed pCO2 of 56.1. * #Chronic HFpEF: on lasix. not in exacerbation #Benign essential hypertension: On lisinopril and Lasix as well as Cardizem #Hypothyroidism: On Synthroid #Hyperlipidemia: On statin DVT prophylaxis Lovenox Charges/Coding Visit Charges Inpatient E&M: 25735 Subs Hosp L2
--- NOTE | 2024-07-02 14:31 | PN.CC_ITS ---
Assessment & Plan Assessment/Plan (1) Acute on chronic respiratory failure with hypoxemia: PLAN: Plan RECOMMENDATIONS: 1. Continue ongoing attempts at diuresis as tolerated by hemodynamics and renal function. 2. Administer IV Diamox x 1 today as ordered. 3. Continue scheduled IV steroids. 4. Continue to wean supplemental oxygen to maintain saturations at or above 90%. 5. Continue Tyvaso per home regimen. IMPRESSIONS: 1. Acute on chronic hypoxemic respiratory failure [place] to be secondary to acute on chronic PH-ILD. The patient is currently being followed by Dr. Godwin in [facility] And has an established history of precapillary pulmonary hypertension in the setting of extensive interstitial lung disease with findings suggestive of chronic hypersensitivity pneumonitis. I agree with continuing aggressive attempts at diuresis, as tolerated by hemodynamics and renal function. In addition, it is reasonable to continue scheduled IV steroids. The patient will be maintained on her home Tyvaso regimen at 64 mcg as tolerated. If the patient does not begin to improve from a respiratory perspective, she may require transfer for further evaluation and intervention from a pulmonary hypertension perspective. Of note, the patient does have a baseline supplemental oxygen requirement of 6 L/min. IV Diamox will be administered today x 1. 2. History of heart failure with preserved ejection fraction/hypertension/hyperlipidemia/hypothyroidism Complicates care, management, recovery and prognosis. Continue home medications as indicated. This note was generated with [employer] dictation software. It may contain incorrect words, spelling, and punctuation that were not noted in checking the note before signing. Subjective Subjective The patient was seen and examined at the bedside this morning. Events from the last 24 hours have been reviewed. The patient is currently afebrile, hemodynamically stable and maintaining appropriate oxygen saturations on 5 L/min at rest. The patient continues to get short of breath with exertion and was noted to have an increased oxygen requirement at 8 L/min with exertion. She is still documented to be overall net +1.4 L for the hospitalization. The patient remains on scheduled diuretics. Creatinine remains within normal limits. Bicarbonate has risen to 38. Objective Data Objective Data The patient's most recent lab work, culture data and imaging studies have all been personally reviewed. Vital Signs: Vital Signs Temp Pulse Resp BP Pulse Ox O2 Del Method O2 Flow Rate 98.0 F 90 24 H 135/77 H 97 Nasal Cannula 6 07/02/24 12:00 07/02/24 13:56 07/02/24 13:56 07/02/24 12:00 07/02/24 12:00 07/02/24 12:00 07/02/24 12:00 FiO2 50 06/29/24 07:00 Oxygen Flow Rate (L/min) 6 Oxygen Delivery Method Nasal Cannula Weight: 148 lb 5.938 oz Body Mass Index (BMI) 28.0 Intake & Output: Intake and Output for Last 24 Hours 06/30/24 07/01/24 07/02/24 23:59 23:59 23:59 Intake Total 720 / 960 1200 / 1200 Output Total 1000 / 1000 Balance 720 / 810 200 / 200 Lab / Micro Data Attestation: I reviewed the patient's lab results. 07/02/24 06:09 07/02/24 06:09 Labs: Laboratory Results - last 24 hr 07/02/24 06:09: WBC 9.6, RBC 4.28, Hgb 11.5 L, Hct 38.8, MCV 90.7, MCH 26.9 L, M CHC 29.6 L, RDW Std Deviation 53.3 H, RDW Coeff of [place] 16.0 H, Plt Count 353, MPV 9.0, Immature Gran % (Auto) 0.600, Neut % (Auto) 90.8 H, Lymph % (Auto) 3.6 L, [place] % (Auto) 4.9, Eos % (Auto) 0.1, Baso % (Auto) 0.0, Absolute Neuts (auto) 8.8 H, Absolute Lymphs (auto) 0.35 L, Nucleated RBC % 0, Sodium 141, Potassium 3.7, Chloride 97 L, Carbon Dioxide 38.0 H, Anion Gap 6, BUN 22 H, Creatinine 0.75, Estim Creat Clear Calc 59.08, Est GFR (MDRD) Af Amer 98, Est GFR (MDRD) Non-Af 81, BUN/Creatinine Ratio 29.2 H, Glucose 170 H, Calcium 9.6 Micro: Microbiology 06/29/24 14:25 Sputum, Expectorated/Coughed Gram Stain - Final 06/29/24 14:25 Sputum, Expectorated/Coughed Respiratory Culture - Final Mixed normal respiratory alf. No Streptococcus pneumoniae, beta-hemolytic Streptococcus or Staphylococcus aureus isolated. 06/28/24 11:05 Blood Culture (Wb) - Anticubital Right Blood Culture - Preliminary No growth in 48 hours. 06/28/24 11:15 Blood Culture (Wb) - Left Forearm Blood Culture - Preliminary No growth in 48 hours. 06/28/24 15:54 Mucosa - Nose Respiratory Panel (PCR) - Final 06/28/24 10:57 Mucosa - Nose SARS-CoV-2, Influenza & RSV (PCR) - Final Physical Exam Const alert, oriented x3 and no apparent distress Constitutional Narrative: Sitting in bedside recliner. General Appearance: cooperative HEENT normocephalic, head/scalp atraumatic and moist oral mucous membranes Eyes PERRL, EOMs intact bilaterally and conjunctivae normal Neck supple General: trachea midline Chest inspection of chest normal Resp Auscultation: rales and diminished lung sounds Cardio regular rate and regular rhythm GI normal to inspection, nondistended, normoactive bowel sounds Extremity no clubbing, cyanosis or edema Skin no rashes or lesions noted Neuro CN's II-XII intact bilaterally, moves all extremities and no focal motor deficits Psych cooperative and affect normal Charges/Coding Visit Charges Inpatient E&M: 78354 Subs Hosp L2
[2024-07-02] MEDS: AcetaZOLAMIDE 500 MG/10 ML Vial 250 MG IV (14:47)
[2024-07-02] MEDS: Pravastatin 20 MG Tablet PO (21:58)
[2024-07-02] MEDS: Acetaminophen 325 MG Tablet 650 MG PO (21:58)
[2024-07-03] VITALS (13 sets, daily range): BP systolic 132–158; BP diastolic 42–85; PULSE 77–99; RESP 18–30; TEMP 35.9–36.8; O2SAT 91–97; BMI 27.2
[2024-07-03] MEDS: 0.9% Saline Lock 10 ML Syringe IV ×4 (05:21→17:17)
[2024-07-03] MEDS: Levothyroxine 50 MCG Tablet PO (05:22)
[2024-07-03 07:41] LABS: Absolute Lymphocyte Count 0.32 X10^3/uL (0.83-4.51); Absolute Neutrophil Count 8.9 X10^3/uL (2.0-7.7); Basophil# 0.01 X10^3/uL; Basophil% 0.1 % (0-1); Hemoglobin 13.3 g/dL (12.0-15.0); Lymphocyte # 0.32 X10^3/ul (0.83-4.51); Lymphocyte % 3.2 % (19-41); Mean Corp Hgb Conc 30.9 g/dL (32-36); Mean Corpuscular Hgb 27.8 pg (27.0-32.0); Mean Corpuscular Volume 89.8 fL (81-99); Mean Platelet Vol. 9.5 fl (6.2-12.0); Monocyte# 0.55 X10^3/uL; Monocyte% 5.6 % (0-10); NRBC Flagged by Analyzer 0 % (0-5); Neutrophil # 8.92 X10^3/uL (2.7-7.7); Neutrophil % 90.2 % (47-70); POSITIVE DIFFERENTIAL YES; Platelet Count 395 K/mm3 (150-450); RBC Distribution Width CV 15.6 % (11.6-14.6); Red Blood Count 4.79 M/mm3 (4.2-5.4); White Blood Count 9.9 K/mm3 (4.4-11.0)
[2024-07-03] MEDS: Ipratropium/Albuterol Sulfate 3 ML AMPUL.NEB INHALATION ×3 (07:42→19:53)
[2024-07-03 08:01] LABS: Anion Gap 8 (5-15); BUN 27 mg/dL (7-18); BUN/Creat Ratio 38.2 RATIO (10-20); Calcium,Total 9.8 mg/dL (8.5-10.1); Chloride 97 mmol/L (98-107); Creatinine, Serum 0.71 mg/dL (0.55-1.02); EST Glomerular Filtration Rate 87 mL/min (>60); Est Glom Filt Rate - Afr Amer 106 mL/min (>60); Estimated Creatinine Clearance 58.27 ml/min; Glucose 178 mg/dL (74-106); Potassium 3.3 mmol/L (3.5-5.1); Sodium Level 140 mmol/L (136-145)
[2024-07-03] MEDS: Potassium Chloride Oral Tablet 20 MEQ PO ×2 (09:41→17:17)
[2024-07-03] MEDS: dilTIAZem CD 180 MG Capsule 360 MG PO (09:41)
[2024-07-03] MEDS: Aspirin E.C. 81 MG Tablet PO (09:41)
[2024-07-03] MEDS: Furosemide 40 MG/4 ML Vial IV ×2 (09:41→17:17)
[2024-07-03] MEDS: Cyanocobalamin 500 MCG Tablet 1000 MCG PO (09:42)
[2024-07-03] MEDS: TREPROSTINIL 64 MCG CART.INHAL INHALATION ×4 (09:42→21:26)
[2024-07-03] MEDS: Potassium Chloride Oral Tablet 20 MEQ 40 MEQ PO (09:50)
--- NOTE | 2024-07-03 11:59 | PN.CC_ITS ---
Assessment & Plan Assessment/Plan (1) Acute on chronic respiratory failure with hypoxemia: PLAN: Plan RECOMMENDATIONS: 1. Continue ongoing attempts at diuresis as tolerated by hemodynamics and renal function. 2. Administer IV Diamox x 1 again today as ordered. 3. Decrease steroids to 40 mg daily. 4. Continue to wean supplemental oxygen to maintain saturations at or above 90%. 5. Continue Tyvaso per home regimen. IMPRESSIONS: 1. Acute on chronic hypoxemic respiratory failure [place] to be secondary to acute on chronic PH-ILD. The patient is currently being followed by Dr. Godwin in [facility] And has an established history of precapillary pulmonary hypertension in the setting of extensive interstitial lung disease with findings suggestive of chronic hypersensitivity pneumonitis. I agree with continuing aggressive attempts at diuresis, as tolerated by hemodynamics and renal function. In addition, it is reasonable to continue steroids. The patient will be maintained on her home Tyvaso regimen at 64 mcg as tolerated. If the patient does not begin to improve from a respiratory perspective, she may require transfer for further evaluation and intervention from a pulmonary hypertension perspective. Of note, the patient does have a baseline supplemental oxygen requirement of 6 L/min. IV Diamox will be administered again today x 1. 2. History of heart failure with preserved ejection fraction/hypertension/hyperlipidemia/hypothyroidism Complicates care, management, recovery and prognosis. Continue home medications as indicated. This note was generated with [employer] dictation software. It may contain incorrect words, spelling, and punctuation that were not noted in checking the note before signing. Subjective Subjective The patient was seen and examined at the bedside this morning. Events from the last 24 hours have been reviewed. The patient is currently afebrile, hemodynamically stable and maintaining appropriate oxygen saturations on 8 L/min via nasal cannula. The patient remains on scheduled diuretics with stable creatinine. She continues to report exertional shortness of breath. Objective Data Objective Data The patient's most recent lab work, culture data and imaging studies have all been personally reviewed. Vital Signs: Vital Signs Temp Pulse Resp BP Pulse Ox O2 Del Method O2 Flow Rate 98.2 F 99 18 132/85 H 94 Nasal Cannula 8 07/03/24 09:40 07/03/24 09:40 07/03/24 09:40 07/03/24 09:40 07/03/24 09:40 07/03/24 09:40 07/03/24 09:40 FiO2 50 06/29/24 07:00 Oxygen Flow Rate (L/min) 8 Oxygen Delivery Method Nasal Cannula Weight: 144 lb 2.917 oz Body Mass Index (BMI) 27.2 Intake & Output: Intake and Output for Last 24 Hours 07/01/24 07/02/24 07/03/24 23:59 23:59 23:59 Intake Total 1200 / 1200 240 / 240 Output Total 1000 / 1000 Balance 200 / 200 240 / 240 Lab / Micro Data Attestation: I reviewed the patient's lab results. 07/03/24 06:35 07/03/24 06:35 Labs: Laboratory Results - last 24 hr 07/03/24 06:35: WBC 9.9, RBC 4.79, Hgb 13.3, Hct 43.0, MCV 89.8, MCH 27.8, MCHC 30.9 L, RDW Std Deviation 51.0 H, RDW Coeff of [place] 15.6 H, Plt Count 395, MPV 9.5, Immature Gran % (Auto) 0.900, Neut % (Auto) 90.2 H, Lymph % (Auto) 3.2 L, [place] % (Auto) 5.6, Eos % (Auto) 0.0, Baso % (Auto) 0.1, Absolute Neuts (auto) 8.9 H, Absolute Lymphs (auto) 0.32 L, Nucleated RBC % 0, Sodium 140, Potassium 3.3 L, Chloride 97 L, Carbon Dioxide 35.0 H, Anion Gap 8, BUN 27 H, Creatinine 0.71, Estim Creat Clear Calc 58.27, Est GFR (MDRD) Af Amer 106, Est GFR (MDRD) Non-Af 87, BUN/Creatinine Ratio 38.2 H, Glucose 178 H, Calcium 9.8 Micro: Microbiology 06/29/24 14:25 Sputum, Expectorated/Coughed Gram Stain - Final 06/29/24 14:25 Sputum, Expectorated/Coughed Respiratory Culture - Final Mixed normal respiratory alf. No Streptococcus pneumoniae, beta-hemolytic Streptococcus or Staphylococcus aureus isolated. 06/28/24 11:05 Blood Culture (Wb) - Anticubital Right Blood Culture - Preliminary No growth in 48 hours. 06/28/24 11:15 Blood Culture (Wb) - Left Forearm Blood Culture - Preliminary No growth in 48 hours. 06/28/24 15:54 Mucosa - Nose Respiratory Panel (PCR) - Final 06/28/24 10:57 Mucosa - Nose SARS-CoV-2, Influenza & RSV (PCR) - Final Physical Exam Const alert, oriented x3 and no apparent distress Constitutional Narrative: Currently sitting on commode. General Appearance: cooperative HEENT normocephalic, head/scalp atraumatic and moist oral mucous membranes Eyes PERRL, EOMs intact bilaterally and conjunctivae normal Neck supple General: trachea midline Chest inspection of chest normal Resp no use of accessory muscles Auscultation: rales and diminished lung sounds Cardio regular rate and regular rhythm GI normal to inspection, nondistended, normoactive bowel sounds Extremity no clubbing, cyanosis or edema Skin no rashes or lesions noted Neuro CN's II-XII intact bilaterally, moves all extremities and no focal motor deficits Psych cooperative and affect normal Charges/Coding Visit Charges Inpatient E&M: 08111 Subs Hosp L2
[2024-07-03] MEDS: AcetaZOLAMIDE 500 MG/10 ML Vial 250 MG IV (12:45)
--- NOTE | 2024-07-03 13:34 | PN_ITS ---
Subjective Subjective Patient seen and examined. She still remains short of breath. She is on 8 L of oxygen. As previously her shortness of breath worsens with exertion. Review of systems otherwise negative. She is not communicative positive balance by 1.65 L. Objective Data Objective Data Vital Signs: Vital Signs Temp Pulse Resp BP Pulse Ox O2 Del Method O2 Flow Rate 98.2 F 99 18 132/85 H 94 Nasal Cannula 8 07/03/24 09:40 07/03/24 09:40 07/03/24 09:40 07/03/24 09:40 07/03/24 09:40 07/03/24 09:40 07/03/24 09:40 FiO2 50 06/29/24 07:00 Oxygen Flow Rate (L/min) 8 Oxygen Delivery Method Nasal Cannula Weight: 144 lb 2.917 oz Body Mass Index (BMI) 27.2 Intake & Output: Intake and Output for Last 24 Hours 07/01/24 07/02/24 07/03/24 23:59 23:59 23:59 Intake Total 1200 / 1200 240 / 240 Output Total 1000 / 1000 Balance 200 / 200 240 / 240 Lab / Micro Data 07/03/24 06:35 07/03/24 06:35 Labs: Laboratory Results - last 24 hr 07/03/24 06:35: WBC 9.9, RBC 4.79, Hgb 13.3, Hct 43.0, MCV 89.8, MCH 27.8, MCHC 30.9 L, RDW Std Deviation 51.0 H, RDW Coeff of [place] 15.6 H, Plt Count 395, MPV 9.5, Immature Gran % (Auto) 0.900, Neut % (Auto) 90.2 H, Lymph % (Auto) 3.2 L, [place] % (Auto) 5.6, Eos % (Auto) 0.0, Baso % (Auto) 0.1, Absolute Neuts (auto) 8.9 H, Absolute Lymphs (auto) 0.32 L, Nucleated RBC % 0, Sodium 140, Potassium 3.3 L, Chloride 97 L, Carbon Dioxide 35.0 H, Anion Gap 8, BUN 27 H, Creatinine 0.71, Estim Creat Clear Calc 58.27, Est GFR (MDRD) Af Amer 106, Est GFR (MDRD) Non-Af 87, BUN/Creatinine Ratio 38.2 H, Glucose 178 H, Calcium 9.8 Micro: Microbiology 06/28/24 11:05 Blood Culture (Wb) - Anticubital Right Blood Culture - Final No growth in 5 days. 06/28/24 11:15 Blood Culture (Wb) - Left Forearm Blood Culture - Final No growth in 5 days. 06/29/24 14:25 Sputum, Expectorated/Coughed Gram Stain - Final 06/29/24 14:25 Sputum, Expectorated/Coughed Respiratory Culture - Final Mixed normal respiratory alf. No Streptococcus pneumoniae, beta-hemolytic Streptococcus or Staphylococcus aureus isolated. 06/28/24 15:54 Mucosa - Nose Respiratory Panel (PCR) - Final 06/28/24 10:57 Mucosa - Nose SARS-CoV-2, Influenza & RSV (PCR) - Final Physical Exam Const alert, oriented x3 and no apparent distress General Appearance: cooperative and comfortable Orientation / Consciousness: awake, oriented to person, oriented to place and oriented to time HEENT normocephalic, head/scalp atraumatic, hearing grossly normal bilaterally, nasal mucous membranes and turbinates normal and moist oral mucous membranes Eyes PERRL, EOMs intact bilaterally and conjunctivae normal Neck full ROM, no lymphadenopathy, supple, no JVD, thyroid normal and no carotid bruits General: trachea midline Lymph Lymphatic: no lymphadenopathy noted and no lymphedema noted Chest inspection of chest normal Resp Resp Narrative: mildly diminished breath sounds bilaterally, minimal wheezing, no crackles. On 8 7 L of oxygen by nasal canula. Still tachypneic especially with mild exertion. Effort and Inspection: tachypneic Auscultation: rales bilateral and diffuse; Negative for rhonchi or wheezes Cardio regular rate, regular rhythm, S1 normal heart sound, S2 normal heart sound and no murmurs Peripheral Pulses: pulses 2+ throughout GI normal to inspection, nondistended, normoactive bowel sounds, soft to palpation, non-tender and non-distended Back/Spine normal ROM Extremity normal to inspection, full ROM, normal capillary refill, no clubbing, cyanosis or edema, no calf tenderness and no pedal edema General Extremity: no tenderness to palpation of joints or extremities Skin no rashes or lesions noted General Skin Exam: no breakdown Neuro oriented x3, CN's II-XII intact bilaterally, moves all extremities, no focal motor deficits and no sensory deficits noted Sensorium / Orientation: awake and alert Speech: speech normal Motor Exam: strength 5/5 throughout and general weakness Psych mental status grossly normal, thought process normal, cooperative and affect normal Appearance: appropriate Assessment & Plan Assessment/Plan (1) Acute on chronic respiratory failure with hypoxemia: (2) Restrictive lung disease: PLAN: Plan #Acute on chronic hypoxic respiratory failure due to flare up of interstitial lung disease * On 8 L of oxygen though she gets short of breath with exertion. * also on lasix. * pulmonology on board. * CTA of the chest done showed no evidence of PE but showed worsening pleural parenchymal disease and mediastinal lymphadenopathy * On inhaled treprostinil * in positive balance by 1.644L of fluid today. Continue diuresing with IV lasix. * per pulmonology, if no improvement in respiratory status with diuresis, to transer to [facility] for further workup. Patient is however currently improving with her oxygen requirement down to 7L. She is usually on 6L of oxygen at home. * #Chronic pulmonary hypertension * Had a right heart cath in September 2023 which showed evidence of pulmonary hypertension. * This is likely due to the interstitial lung disease. #Metabolic alkalosis * likely due to diuresis and hypercapnia. ABG from 06/29/2024 showed pCO2 of 56.1. * bicarb is up to 35 today. Given a dose of IV acetazolamide per pulm today * #Hypokalemia: Potassium is 3.3. Replace today and trend. #Chronic HFpEF: on lasix. not in exacerbation #Benign essential hypertension: On lisinopril and Lasix as well as Cardizem #Hypothyroidism: On Synthroid #Hyperlipidemia: On statin DVT prophylaxis: Lovenox Charges/Coding Visit Charges Inpatient E&M: 52642 Subs Hosp L2
[2024-07-03] MEDS: Lisinopril 10 MG Tablet PO (17:17)
[2024-07-03] MEDS: Pravastatin 20 MG Tablet PO (21:26)
[2024-07-04] VITALS (10 sets, daily range): BP systolic 132–149; BP diastolic 55–66; PULSE 71–89; RESP 18–24; TEMP 36.4–36.6; O2SAT 86–100; BMI 26.9
[2024-07-04] MEDS: Acetaminophen 325 MG Tablet 650 MG PO ×2 (00:50→23:33)
[2024-07-04] MEDS: Levothyroxine 50 MCG Tablet PO (06:02)
[2024-07-04 07:04] LABS: Absolute Lymphocyte Count 1.04 X10^3/uL (0.83-4.51); Absolute Neutrophil Count 12.9 X10^3/uL (2.0-7.7); Basophil# 0.03 X10^3/uL; Basophil% 0.2 % (0-1); Hematocrit 42.9 % (37-47); Hemoglobin 13.3 g/dL (12.0-15.0); Lymphocyte # 1.04 X10^3/ul (0.83-4.51); Lymphocyte % 6.6 % (19-41); Mean Corpuscular Hgb 27.7 pg (27.0-32.0); Mean Corpuscular Volume 89.2 fL (81-99); Mean Platelet Vol. 9.8 fl (6.2-12.0); Monocyte% 10.8 % (0-10); NRBC Flagged by Analyzer 0 % (0-5); Neutrophil # 12.87 X10^3/uL (2.7-7.7); POSITIVE DIFFERENTIAL YES; Platelet Count 422 K/mm3 (150-450); RBC Distribution Width CV 15.6 % (11.6-14.6); Red Blood Count 4.81 M/mm3 (4.2-5.4); White Blood Count 15.7 K/mm3 (4.4-11.0)
[2024-07-04 07:17] LABS: Differential Indicated SCAN CRITERIA MET
[2024-07-04] MEDS: Ipratropium/Albuterol Sulfate 3 ML AMPUL.NEB INHALATION ×3 (07:22→19:31)
[2024-07-04 07:56] LABS: Anion Gap 7 (5-15); BUN 37 mg/dL (7-18); BUN/Creat Ratio 46.8 RATIO (10-20); Calcium,Total 9.8 mg/dL (8.5-10.1); Chloride 99 mmol/L (98-107); Creatinine, Serum 0.79 mg/dL (0.55-1.02); EST Glomerular Filtration Rate 77 mL/min (>60); Est Glom Filt Rate - Afr Amer 93 mL/min (>60); Estimated Creatinine Clearance 57.97 ml/min; Glucose 125 mg/dL (74-106); Sodium Level 138 mmol/L (136-145)
[2024-07-04] MEDS: TREPROSTINIL 64 MCG CART.INHAL INHALATION ×4 (09:13→22:00)
[2024-07-04] MEDS: predniSONE 20 MG Tablet 40 MG PO (09:15)
[2024-07-04] MEDS: Potassium Chloride Oral Tablet 20 MEQ PO ×2 (09:15→17:21)
[2024-07-04] MEDS: dilTIAZem CD 180 MG Capsule 360 MG PO (09:15)
[2024-07-04] MEDS: Aspirin E.C. 81 MG Tablet PO (09:15)
[2024-07-04] MEDS: Furosemide 40 MG/4 ML Vial IV ×2 (09:16→17:21)
[2024-07-04] MEDS: Cyanocobalamin 500 MCG Tablet 1000 MCG PO (09:16)
--- NOTE | 2024-07-04 11:17 | PCM.PN.INT ---
Assessment & Plan Assessment/Plan (1) Acute on chronic respiratory failure with hypoxemia: PLAN: Plan RECOMMENDATIONS: 1. Continue ongoing attempts at diuresis as tolerated by hemodynamics and renal function. 2. Perform walking oximetry study today. 3. Continue prednisone 40 mg daily. 4. Continue to wean supplemental oxygen to maintain saturations at or above 90%. 5. Continue Tyvaso per home regimen. IMPRESSIONS: 1. Acute on chronic hypoxemic respiratory failure [place] to be secondary to acute on chronic PH-ILD. The patient is currently being followed by Dr. Godwin in [facility] And has an established history of precapillary pulmonary hypertension in the setting of extensive interstitial lung disease with findings suggestive of chronic hypersensitivity pneumonitis. I agree with continuing aggressive attempts at diuresis, as tolerated by hemodynamics and renal function. In addition, it is reasonable to continue steroids. The patient will be maintained on her home Tyvaso regimen at 64 mcg as tolerated. If the patient does not begin to improve from a respiratory perspective, she may require transfer for further evaluation and intervention from a pulmonary hypertension perspective. Of note, the patient does have a baseline supplemental oxygen requirement of 6 L/min. 2. History of heart failure with preserved ejection fraction/hypertension/hyperlipidemia/hypothyroidism Complicates care, management, recovery and prognosis. Continue home medications as indicated. This note was generated with [employer] dictation software. It may contain incorrect words, spelling, and punctuation that were not noted in checking the note before signing. Subjective Subjective The patient was seen and examined at the bedside this morning. Events from the last 24 hours have been reviewed. The patient is currently afebrile, hemodynamically stable and maintaining appropriate oxygen saturations on 5 L/min via nasal cannula. The patient remains on twice daily scheduled Lasix. Bicarbonate is acceptable at 33 with a normal creatinine. Objective Data Objective Data The patient's most recent lab work, culture data and imaging studies have all been personally reviewed. Vital Signs: Vital Signs Temp Pulse Resp BP Pulse Ox O2 Del Method O2 Flow Rate 97.6 F L 84 18 132/63 H 99 Nasal Cannula 5 07/04/24 09:09 07/04/24 09:09 07/04/24 09:09 07/04/24 09:09 07/04/24 09:09 07/04/24 09:11 07/04/24 09:11 FiO2 50 06/29/24 07:00 Oxygen Flow Rate (L/min) 5 Oxygen Delivery Method Nasal Cannula Weight: 142 lb 10.225 oz Body Mass Index (BMI) 26.9 Intake & Output: Intake and Output for Last 24 Hours 07/02/24 07/03/24 07/04/24 23:59 23:59 23:59 Intake Total 600 / 600 800 / 800 Balance 600 / 600 800 / 800 Lab / Micro Data Attestation: I reviewed the patient's lab results. 07/04/24 05:51 07/04/24 05:51 Labs: Laboratory Results - last 24 hr 07/04/24 05:51: WBC 15.7 H, RBC 4.81, Hgb 13.3, Hct 42.9, MCV 89.2, MCH 27.7, MCHC 31.0 L, RDW Std Deviation 51.0 H, RDW Coeff of [place] 15.6 H, Plt Count 422, MPV 9.8, Immature Gran % (Auto) 0.400, Neut % (Auto) 82.0 H, Lymph % (Auto) 6.6 L, [place] % (Auto) 10.8 H, Eos % (Auto) 0.0, Baso % (Auto) 0.2, Absolute Neuts (auto) 12.9 H, Absolute Lymphs (auto) 1.04, Nucleated RBC % 0, Differential Comment COMMENT, Diff Path Review September, Sodium 138, Potassium 4.0, Chloride 99, Carbon Dioxide 33.0 H, Anion Gap 7, BUN 37 H, Creatinine 0.79, Estim Creat Clear Calc 57.97, Est GFR (MDRD) Af Amer 93, Est GFR (MDRD) Non-Af 77, BUN/Creatinine Ratio 46.8 H, Glucose 125 H, Calcium 9.8 Micro: Microbiology 06/28/24 11:05 Blood Culture (Wb) - Anticubital Right Blood Culture - Final No growth in 5 days. 06/28/24 11:15 Blood Culture (Wb) - Left Forearm Blood Culture - Final No growth in 5 days. 06/29/24 14:25 Sputum, Expectorated/Coughed Gram Stain - Final 06/29/24 14:25 Sputum, Expectorated/Coughed Respiratory Culture - Final Mixed normal respiratory alf. No Streptococcus pneumoniae, beta-hemolytic Streptococcus or Staphylococcus aureus isolated. 06/28/24 15:54 Mucosa - Nose Respiratory Panel (PCR) - Final 06/28/24 10:57 Mucosa - Nose SARS-CoV-2, Influenza & RSV (PCR) - Final Physical Exam Const alert, oriented x3 and no apparent distress Constitutional Narrative: Resting comfortably in bed. General Appearance: cooperative HEENT normocephalic, head/scalp atraumatic and moist oral mucous membranes Eyes PERRL, EOMs intact bilaterally and conjunctivae normal Neck supple General: trachea midline Chest inspection of chest normal Resp no use of accessory muscles Auscultation: rales and diminished lung sounds Cardio regular rate and regular rhythm GI normal to inspection, nondistended, normoactive bowel sounds Extremity no clubbing, cyanosis or edema Skin no rashes or lesions noted Neuro CN's II-XII intact bilaterally, moves all extremities and no focal motor deficits Psych cooperative and affect normal Charges/Coding Visit Charges Inpatient E&M: 31423 Subs Hosp L2
--- NOTE | 2024-07-04 16:00 | PN_ITS ---
Subjective Subjective Patient seen and examined. She says she felt better today. She was down to 7 L and subsequently down to 5 L of oxygen. However with ambulation she required as high as 10 L of oxygen. Objective Data Objective Data Vital Signs: Vital Signs Temp Pulse Resp BP Pulse Ox O2 Del Method O2 Flow Rate 97.6 F L 88 18 132/66 H 98 Nasal Cannula 5 07/04/24 15:09 07/04/24 15:09 07/04/24 15:09 07/04/24 15:09 07/04/24 15:07/04/24 15:24 07/04/24 15:24 FiO2 50 06/29/24 07:00 Oxygen Flow Rate (L/min) 5 Oxygen Delivery Method Nasal Cannula Weight: 142 lb 10.225 oz Body Mass Index (BMI) 26.9 Intake & Output: Intake and Output for Last 24 Hours 07/02/24 07/03/24 07/04/24 23:59 23:59 23:59 Intake Total 600 / 600 1200 / 1200 Balance 600 / 600 1200 / 1200 Lab / Micro Data 07/04/24 05:51 07/04/24 05:51 Labs: Laboratory Results - last 24 hr 07/04/24 05:51: WBC 15.7 H, RBC 4.81, Hgb 13.3, Hct 42.9, MCV 89.2, MCH 27.7, M CHC 31.0 L, RDW Std Deviation 51.0 H, RDW Coeff of [place] 15.6 H, Plt Count 422, MPV 9.8, Immature Gran % (Auto) 0.400, Neut % (Auto) 82.0 H, Lymph % (Auto) 6.6 L, [place] % (Auto) 10.8 H, Eos % (Auto) 0.0, Baso % (Auto) 0.2, Absolute Neuts (auto) 12.9 H, Absolute Lymphs (auto) 1.04, Nucleated RBC % 0, Differential Comment COMMENT, Diff Path Review September, Sodium 138, Potassium 4.0, Chloride 99, Carbon Dioxide 33.0 H, Anion Gap 7, BUN 37 H, Creatinine 0.79, Estim Creat Clear Calc 57.97, Est GFR (MDRD) Af Amer 93, Est GFR (MDRD) Non-Af 77, B UN/Creatinine Ratio 46.8 H, Glucose 125 H, Calcium 9.8 Micro: Microbiology 06/28/24 11:05 Blood Culture (Wb) - Anticubital Right Blood Culture - Final No growth in 5 days. 06/28/24 11:15 Blood Culture (Wb) - Left Forearm Blood Culture - Final No growth in 5 days. 06/29/24 14:25 Sputum, Expectorated/Coughed Gram Stain - Final 06/29/24 14:25 Sputum, Expectorated/Coughed Respiratory Culture - Final Mixed normal respiratory alf. No Streptococcus pneumoniae, beta-hemolytic Streptococcus or Staphylococcus aureus isolated. 06/28/24 15:54 Mucosa - Nose Respiratory Panel (PCR) - Final 06/28/24 10:57 Mucosa - Nose SARS-CoV-2, Influenza & RSV (PCR) - Final Physical Exam Const alert and oriented x3 General Appearance: cooperative, comfortable, well kempt and well developed Orientation / Consciousness: awake and oriented to person HEENT normocephalic, head/scalp atraumatic, hearing grossly normal bilaterally, nasal mucous membranes and turbinates normal and moist oral mucous membranes Eyes PERRL, EOMs intact bilaterally and conjunctivae normal Neck full ROM, no lymphadenopathy, supple, no JVD, thyroid normal and no carotid bruits General: trachea midline Lymph Lymphatic: no lymphadenopathy noted and no lymphedema noted Chest inspection of chest normal Resp no use of accessory muscles and clear to auscultation bilaterally Resp Narrative: mildly diminished breath sounds bilaterally, minimal wheezing, no crackles. On 6 L of oxygen by nasal canula. Still tachypneic especially with mild exertion. Effort and Inspection: tachypneic Auscultation: rales bilateral and diffuse Cardio regular rate, regular rhythm, S1 normal heart sound, S2 normal heart sound, no murmurs, no rub, no gallops and peripheral pulses 2+ throughout Rate: tachycardic Peripheral Pulses: pulses 2+ throughout GI normal to inspection, nondistended, normoactive bowel sounds Back/Spine normal ROM Extremity normal to inspection, full ROM, normal capillary refill, no clubbing, cyanosis or edema and no calf tenderness General Extremity: no tenderness to palpation of joints or extremities Skin no rashes or lesions noted General Skin Exam: no breakdown Neuro oriented x3, CN's II-XII intact bilaterally, moves all extremities, no focal motor deficits and no sensory deficits noted Sensorium / Orientation: awake and alert Speech: speech normal Motor Exam: strength 5/5 throughout and general weakness Psych mental status grossly normal, thought process normal, cooperative and affect normal Appearance: appropriate Assessment & Plan Assessment/Plan (1) Acute on chronic respiratory failure with hypoxemia: (2) Restrictive lung disease: PLAN: Plan #Acute on chronic hypoxic respiratory failure due to flare up of interstitial lung disease * On 8 L of oxygen though she gets short of breath with exertion. * also on lasix. * pulmonology on board. * CTA of the chest done showed no evidence of PE but showed worsening pleural parenchymal disease and mediastinal lymphadenopathy * On inhaled treprostinil * in positive balance by 3.20L of fluid today. Continue diuresing with IV lasix. I dont know how accurate the input and output has been though, but will continue diuresing. * She required up to 10 L of oxygen with walking pulse ox today. Will therefore hold off on discharge today. * #Chronic pulmonary hypertension * Had a right heart cath in September 2023 which showed evidence of pulmonary hypertension. * This is likely due to the interstitial lung disease. #Metabolic alkalosis * likely due to diuresis and hypercapnia. ABG from 06/29/2024 showed pCO2 of 56.1. * bicarb is up to 35 today. Given a dose of IV acetazolamide per pulm today * #Hypokalemia: Resolved. Potassium is 4 today. #Chronic HFpEF: on lasix. not in exacerbation #Benign essential hypertension: On lisinopril and Lasix as well as Cardizem #Hypothyroidism: On Synthroid #Hyperlipidemia: On statin DVT prophylaxis: Lovenox Charges/Coding Visit Charges Inpatient E&M: 25127 Subs Hosp L2
--- NOTE | 2024-07-04 17:14 | CASEMGMT ---
RN CM in to discuss needs at discharge. Patient states she has portable tank for at discharge and her oxygen concentrator goes up to 10lpm. Patient denies needs at discharge and will follow-up with lining maker regarding pulmonary rehab. Patient had no further questions or concerns. Green sheet placed on chart for increase home oxygen if needed.
[2024-07-04] MEDS: Lisinopril 10 MG Tablet PO (17:21)
[2024-07-04] MEDS: Pravastatin 20 MG Tablet PO (22:00)
[2024-07-05] VITALS (10 sets, daily range): BP systolic 116–141; BP diastolic 50–84; PULSE 77–93; RESP 17–22; TEMP 36.6–36.8; O2SAT 80–99; BMI 26.4
[2024-07-05 06:06] LABS: Absolute Lymphocyte Count 1.91 X10^3/uL (0.83-4.51); Absolute Neutrophil Count 10.4 X10^3/uL (2.0-7.7); Basophil# 0.02 X10^3/uL; Basophil% 0.1 % (0-1); Eosinophils% 0.7 % (0-5); Hematocrit 42.2 % (37-47); Hemoglobin 13.4 g/dL (12.0-15.0); Lymphocyte # 1.91 X10^3/ul (0.83-4.51); Lymphocyte % 13.5 % (19-41); Mean Corp Hgb Conc 31.8 g/dL (32-36); Mean Corpuscular Hgb 27.9 pg (27.0-32.0); Mean Corpuscular Volume 87.7 fL (81-99); Mean Platelet Vol. 9.3 fl (6.2-12.0); Monocyte# 1.64 X10^3/uL; Monocyte% 11.6 % (0-10); NRBC Flagged by Analyzer 0 % (0-5); Neutrophil # 10.35 X10^3/uL (2.7-7.7); Neutrophil % 73.5 % (47-70); POSITIVE DIFFERENTIAL YES; Platelet Count 397 K/mm3 (150-450); RBC Distribution Width CV 15.7 % (11.6-14.6); RBC Distribution Width SD 50.3 fl (35.1-43.9); Red Blood Count 4.81 M/mm3 (4.2-5.4); White Blood Count 14.1 K/mm3 (4.4-11.0)
[2024-07-05] MEDS: Levothyroxine 50 MCG Tablet PO (06:22)
[2024-07-05] MEDS: Ipratropium/Albuterol Sulfate 3 ML AMPUL.NEB INHALATION ×3 (06:52→20:31)
[2024-07-05 06:53] LABS: Differential Indicated SCAN CRITERIA MET
[2024-07-05 07:04] LABS: Anion Gap 5 (5-15); BUN 32 mg/dL (7-18); BUN/Creat Ratio 43.6 RATIO (10-20); Calcium,Total 9.2 mg/dL (8.5-10.1); Chloride 98 mmol/L (98-107); Creatinine, Serum 0.73 mg/dL (0.55-1.02); EST Glomerular Filtration Rate 84 mL/min (>60); Est Glom Filt Rate - Afr Amer 101 mL/min (>60); Estimated Creatinine Clearance 57.42 ml/min; Glucose 106 mg/dL (74-106); Potassium 3.6 mmol/L (3.5-5.1); Sodium Level 136 mmol/L (136-145)
[2024-07-05] MEDS: Aspirin E.C. 81 MG Tablet PO (08:47)
[2024-07-05] MEDS: dilTIAZem CD 180 MG Capsule 360 MG PO (08:47)
[2024-07-05] MEDS: Potassium Chloride Oral Tablet 20 MEQ PO ×2 (08:47→18:32)
[2024-07-05] MEDS: Furosemide 40 MG/4 ML Vial IV ×2 (08:47→18:33)
[2024-07-05] MEDS: Cyanocobalamin 500 MCG Tablet 1000 MCG PO (08:47)
[2024-07-05] MEDS: predniSONE 20 MG Tablet 40 MG PO (08:47)
[2024-07-05] MEDS: TREPROSTINIL 64 MCG CART.INHAL INHALATION ×4 (08:48→22:17)
[2024-07-05 10:07] LABS: Platelet Estimate ADEQUATE (ADEQ); Vacuolated Cells 1+
[2024-07-05 10:08] LABS: Anisocytosis 1+; Ovalocyte 1+; Schistocytes RARE; Target Cells RARE
--- NOTE | 2024-07-05 13:44 | PN.CC_ITS ---
Objective Data Objective Data Vital Signs: Vital Signs Last response 3 Temperature 36.6 C 07/05/24 08:44 Temperature Source Oral 07/05/24 08:44 Pulse Rate 82 07/05/24 13:13 Pulse Strength Normal (2+) 07/04/24 09:10 Respiratory Rate 18 07/05/24 13:13 Respiratory Effort Normal, Non-Labored 07/05/24 08:42 Respiratory Depth Normal 07/05/24 08:42 Respiratory Pattern Normal 07/05/24 13:13 Blood Pressure 121/50 H 07/05/24 08:44 Blood Pressure Mean 73 07/05/24 08:44 Blood Pressure Source Monitor 07/04/24 21:56 Blood Pressure Position Semi-Fowlers 07/04/24 21:56 Blood Pressure Location Left Arm 07/04/24 21:56 Pulse Ox 99 07/05/24 08:44 Oxygen Delivery Method Nasal Cannula 07/05/24 08:44 Oxygen Flow Rate (L/min) 5 07/05/24 08:44 Fraction of Inspired Oxygen (FIO2) 50 06/29/24 07:00 I&O: I&O Last 24 Hours 3 07/04/24 07/05/24 07/05/24 23:59 11:59 23:59 Intake Total 800 / 1600 200 / 200 Balance 800 / 1600 200 / 200 I&O: Total Stay 3 06/28/24 10:54 thru 07/05/24 11:31 Intake Total 5954.54 Output Total 2150 Balance 3804.54 Current Meds Ordered / Administered: Current meds ordered / Administered 3 Generic Name Dose Route Start Last Admin Trade Name Casimiro PRN Reason Stop Dose Admin Acetaminophen 650 mg 06/28/24 15:46 07/04/24 23:33 Acetaminophen 325 Mg Tablet PO 650 mg Q6H PRN PRN Administration Pain 1-10 Or Fever>100.7 Albuterol/Ipratropium 3 ml 06/28/24 15:46 07/05/24 12:48 Ipratropium/Albuterol Sulfate 3 Ml Ampul.Neb INHALATION 3 ml Q6HWA.RT MARLYN Administration Aspirin 81 mg 06/29/24 08:00 07/05/24 08:47 Aspirin E.C. 81 Mg Tablet PO 81 mg BREAKFAST MARLYN Administration Cyanocobalamin 1,000 mcg 06/29/24 10:00 07/05/24 08:47 Cyanocobalamin 500 Mcg Tablet PO 1,000 mcg DAILY MARLYN Administration Diltiazem HCl 360 mg 06/29/24 10:00 07/05/24 08:47 Diltiazem Cd 180 Mg Capsule PO 360 mg DAILY MARLYN Administration Enoxaparin Sodium 40 mg 06/29/24 10:00 07/05/24 08:58 Enoxaparin 40 Mg/0.4 Ml Syringe SC Not Given DAILY MARLYN Furosemide 40 mg 07/01/24 18:00 07/05/24 08:47 Furosemide 40 Mg/4 Ml Vial IV 40 mg BIDLX MARLYN Administration Protocol Sodium Chloride 100 mls @ 15 mls/hr 06/28/24 16:05 IV .Q6H40M PRN Saline Flush Sodium Chloride 100 mls @ 15 mls/hr 06/28/24 16:05 IV .Q6H40M PRN Additional IVPB Infusion Levothyroxine Sodium 50 mcg 06/29/24 06:00 07/05/24 06:22 Levothyroxine 50 Mcg Tablet PO 50 mcg DAILY@0600 MARLYN Administration Lisinopril 10 mg 06/29/24 17:00 07/04/24 17:21 Lisinopril 10 Mg Tablet PO 10 mg DAILY@1700 [facility] Administration Protocol Melatonin 3 mg 06/28/24 15:46 Melatonin 3 Mg Tablet PO QHS PRN PRN INSOMNIA Ondansetron HCl 4 mg 06/28/24 15:46 Ondansetron 4 Mg/2 Ml Vial IV Q8H PRN PRN NAUSEA/VOMITING Potassium Chloride 20 meq 06/29/24 17:00 07/05/24 08:47 Potassium Chloride Oral Tablet 20 Meq PO 20 meq BIDCM MARLYN Administration Pravastatin Sodium 20 mg 06/28/24 22:00 07/04/24 22:00 Pravastatin 20 Mg Tablet PO 20 mg QHS MARLYN Administration Prednisone 40 mg 07/04/24 08:00 07/05/24 08:47 Prednisone 20 Mg Tablet PO 40 mg BREAKFAST MARLYN Administration Sodium Chloride 10 - 40 ml 06/28/24 16:05 07/03/24 17:17 0.9% Saline Lock 10 Ml Syringe IV 10 ml UD PRN Administration SALINE FLUSH Lab / Micro Data Attestation: I reviewed the patient's lab results. 07/05/24 05:24 07/05/24 05:24 Labs: Laboratory Results - last 24 hr 07/05/24 05:24: WBC 14.1 H, RBC 4.81, Hgb 13.4, Hct 42.2, MCV 87.7, MCH 27.9, M CHC 31.8 L, RDW Std Deviation 50.3 H, RDW Coeff of [place] 15.7 H, Plt Count 397, MPV 9.3, Immature Gran % (Auto) 0.600, Neut % (Auto) 73.5 H, Lymph % (Auto) 13.5 L, [place] % (Auto) 11.6 H, Eos % (Auto) 0.7, Baso % (Auto) 0.1, Absolute Neuts (auto) 10.4 H, Absolute Lymphs (auto) 1.91, Nucleated RBC % 0, Diff Path Review May foll, Toxic Vacuolation 1+, Platelet Estimate ADEQUATE, Anisocytosis 1+, Target Cells RARE, Ovalocytes 1+, Schistocytes RARE, Sodium 136, Potassium 3.6, Chloride 98, Carbon Dioxide 34.0 H, Anion Gap 5, BUN 32 H, Creatinine 0.73, Estim Creat Clear Calc 57.42, Est GFR (MDRD) Af Amer 101, Est GFR (MDRD) Non-Af 84, BUN/Creatinine Ratio 43.6 H, Glucose 106, Calcium 9.2 Assessment and Plan . Assessment and plan: IMPRESSIONS: 1. 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 If the patient does not begin to improve from a respiratory perspective, she may require transfer for further evaluation and intervention to a PH referral center. 2. History of heart failure with preserved ejection fraction/hypertension/hyperlipidemia/hypothyroidism Complicates care, management, recovery and prognosis. Continue home medications as indicated. RECOMMENDATIONS: 1. Continue ongoing attempts at diuresis as tolerated by hemodynamics and renal function. 2. Perform walking oximetry study today. 3. Continue prednisone 40 mg daily. 4. Continue to wean supplemental oxygen to maintain saturations at or above 90%. 5. Continue Tyvaso per home regimen. Critical Care Time:50 minutes The entirety of this encounter was done via Telemedicine Physical Exam Const oriented x3 and no apparent distress General Appearance: cooperative and comfortable Exam Limitations: no limitations HEENT normocephalic and head/scalp atraumatic Eyes PERRL and EOMs intact bilaterally Neck no JVD Chest inspection of chest normal Resp normal respiratory effort Subjective Subjective She looks comfortable, states she prefers the Nasal pillows. gets OOB, desaturates easily on 5L/min (which is close to her BL) due to PH-ILD
--- NOTE | 2024-07-05 15:35 | PN_ITS ---
Subjective Subjective Patient seen and examined. She has no complaints today. She was down to 4 L of oxygen today. She says she started feeling better. Plan was to hopefully discharge her today. She did have walking pulse ox requiring up to 10 L of oxygen but she says she felt the same as she usually did at home and was willing to go home. However she said because of the weather there would be nobody to be able to get her today so she wanted stay till tomorrow. Review of systems otherwise negative. Objective Data Objective Data Vital Signs: Vital Signs Temp Pulse Resp BP Pulse Ox O2 Del Method O2 Flow Rate 97.9 F 89 20 H 116/55 L 94 Nasal Cannula 4 07/05/24 15:22 07/05/24 15:22 07/05/24 15:22 07/05/24 15:22 07/05/24 15:22 07/05/24 15:27 07/05/24 15:27 FiO2 50 06/29/24 07:00 Oxygen Flow Rate (L/min) 4 Oxygen Delivery Method Nasal Cannula Weight: 139 lb 12.369 oz Body Mass Index (BMI) 26.4 Intake & Output: Intake and Output for Last 24 Hours 07/03/24 07/04/24 07/05/24 23:59 23:59 23:59 Intake Total 600 / 600 1600 / 1600 200 / 200 Balance 600 / 600 1600 / 1600 200 / 200 Lab / Micro Data 07/05/24 05:24 07/05/24 05:24 Labs: Laboratory Results - last 24 hr 07/05/24 05:24: WBC 14.1 H, RBC 4.81, Hgb 13.4, Hct 42.2, MCV 87.7, MCH 27.9, M CHC 31.8 L, RDW Std Deviation 50.3 H, RDW Coeff of [place] 15.7 H, Plt Count 397, MPV 9.3, Immature Gran % (Auto) 0.600, Neut % (Auto) 73.5 H, Lymph % (Auto) 13.5 L, [place] % (Auto) 11.6 H, Eos % (Auto) 0.7, Baso % (Auto) 0.1, Absolute Neuts (auto) 10.4 H, Absolute Lymphs (auto) 1.91, Nucleated RBC % 0, Diff Path Review May foll, Toxic Vacuolation 1+, Platelet Estimate ADEQUATE, Anisocytosis 1+, Target Cells RARE, Ovalocytes 1+, Schistocytes RARE, Sodium 136, Potassium 3.6, Chloride 98, Carbon Dioxide 34.0 H, Anion Gap 5, BUN 32 H, Creatinine 0.73, Estim Creat Clear Calc 57.42, Est GFR (MDRD) Af Amer 101, Est GFR (MDRD) Non-Af 84, BUN/Creatinine Ratio 43.6 H, Glucose 106, Calcium 9.2 Micro: Microbiology 06/28/24 11:05 Blood Culture (Wb) - Anticubital Right Blood Culture - Final No growth in 5 days. 06/28/24 11:15 Blood Culture (Wb) - Left Forearm Blood Culture - Final No growth in 5 days. 06/29/24 14:25 Sputum, Expectorated/Coughed Gram Stain - Final 06/29/24 14:25 Sputum, Expectorated/Coughed Respiratory Culture - Final Mixed normal respiratory alf. No Streptococcus pneumoniae, beta-hemolytic Streptococcus or Staphylococcus aureus isolated. 06/28/24 15:54 Mucosa - Nose Respiratory Panel (PCR) - Final 06/28/24 10:57 Mucosa - Nose SARS-CoV-2, Influenza & RSV (PCR) - Final Physical Exam Const alert, oriented x3 and no apparent distress General Appearance: cooperative, comfortable, well kempt and well developed Orientation / Consciousness: awake HEENT normocephalic, head/scalp atraumatic, hearing grossly normal bilaterally, nasal mucous membranes and turbinates normal and moist oral mucous membranes Eyes PERRL, EOMs intact bilaterally and conjunctivae normal Neck full ROM, no lymphadenopathy, supple, no JVD, thyroid normal and no carotid bruits General: trachea midline Lymph Lymphatic: no lymphadenopathy noted and no lymphedema noted Chest inspection of chest normal Resp normal respiratory effort, no retractions, no use of accessory muscles and clear to auscultation bilaterally Resp Narrative: mildly diminished breath sounds bilaterally, minimal wheezing, no crackles. On 4L of oxygen by nasal canula. Still tachypneic especially with mild exertion. Effort and Inspection: tachypneic Cardio regular rate, regular rhythm, S1 normal heart sound, S2 normal heart sound, no murmurs, no rub, no gallops and peripheral pulses 2+ throughout Peripheral Pulses: pulses 2+ throughout GI normal to inspection, nondistended, normoactive bowel sounds, soft to palpation and non-tender Back/Spine normal ROM Extremity normal to inspection, full ROM, normal capillary refill, no clubbing, cyanosis or edema, no calf tenderness and no pedal edema General Extremity: no tenderness to palpation of joints or extremities Skin no rashes or lesions noted General Skin Exam: no breakdown Neuro oriented x3, CN's II-XII intact bilaterally, moves all extremities, no focal motor deficits and no sensory deficits noted Sensorium / Orientation: awake and alert Speech: speech normal Motor Exam: strength 5/5 throughout and general weakness Psych mental status grossly normal, thought process normal, cooperative and affect normal Appearance: appropriate Assessment & Plan Assessment/Plan (1) Acute on chronic respiratory failure with hypoxemia: (2) Restrictive lung disease: PLAN: Plan #Acute on chronic hypoxic respiratory failure due to flare up of interstitial lung disease * On 4 L of oxygen though she gets short of breath with exertion. * also on lasix. * pulmonology on board. * CTA of the chest done showed no evidence of PE but showed worsening pleural parenchymal disease and mediastinal lymphadenopathy * On inhaled treprostinil * in positive balance by 3.20L of fluid today. Continue diuresing with IV lasix. I dont know how accurate the input and output has been though, but will continue diuresing. * She still required up to 10 L of oxygen with walking pulse ox today. She however says she feels like she is at her baseline at home and was willing to be discharged today. * #Chronic pulmonary hypertension * Had a right heart cath in September 2023 which showed evidence of pulmonary hypertension. * This is likely due to the interstitial lung disease. #Metabolic alkalosis * likely due to diuresis and hypercapnia. ABG from 06/29/2024 showed pCO2 of 56.1. * bicarb is 34 today. has received IV acetazolamide during this admission. * #Hypokalemia: Resolved. Potassium is 4 today. #Chronic HFpEF: on lasix. not in exacerbation #Benign essential hypertension: On lisinopril and Lasix as well as Cardizem #Hypothyroidism: On Synthroid #Hyperlipidemia: On statin DVT prophylaxis: Lovenox Disposition: * for DC tomorrow. * Patient does not want to go today because she says she does not have anybody who will pick her up today due to the bad weather. Charges/Coding Visit Charges Inpatient E&M: 83825 Subs Hosp L2
[2024-07-05] MEDS: Lisinopril 10 MG Tablet PO (18:32)
[2024-07-05] MEDS: Pravastatin 20 MG Tablet PO (22:17)
[2024-07-05] MEDS: Acetaminophen 325 MG Tablet 650 MG PO (22:17)
[2024-07-06 04:20] VITALS: BP 116/48; PULSE 83; RESP 20; TEMP 37.1; O2SAT 97
[2024-07-06 04:58] VITALS: BMI 26.2
[2024-07-06] MEDS: Levothyroxine 50 MCG Tablet PO (05:12)
[2024-07-06 07:23] VITALS: PULSE 88; RESP 20; O2SAT 93
[2024-07-06] MEDS: Ipratropium/Albuterol Sulfate 3 ML AMPUL.NEB INHALATION (07:25)
[2024-07-06 07:44] LABS: Absolute Lymphocyte Count 1.81 X10^3/uL (0.83-4.51); Absolute Neutrophil Count 10.8 X10^3/uL (2.0-7.7); Basophil# 0.01 X10^3/uL; Basophil% 0.1 % (0-1); Eosinophil# 0.26 X10^3/uL; Eosinophils% 1.7 % (0-5); Hematocrit 42.7 % (37-47); Hemoglobin 13.5 g/dL (12.0-15.0); Lymphocyte # 1.81 X10^3/ul (0.83-4.51); Mean Corp Hgb Conc 31.6 g/dL (32-36); Mean Corpuscular Hgb 27.6 pg (27.0-32.0); Mean Corpuscular Volume 87.3 fL (81-99); Mean Platelet Vol. 9.6 fl (6.2-12.0); NRBC Flagged by Analyzer 0 % (0-5); Neutrophil # 10.79 X10^3/uL (2.7-7.7); Neutrophil % 71.7 % (47-70); POSITIVE DIFFERENTIAL YES; Platelet Count 375 K/mm3 (150-450); RBC Distribution Width CV 15.9 % (11.6-14.6); RBC Distribution Width SD 50.4 fl (35.1-43.9); Red Blood Count 4.89 M/mm3 (4.2-5.4)
[2024-07-06 07:54] LABS: Differential Indicated SCAN CRITERIA MET
[2024-07-06 08:42] LABS: Anion Gap 4 (5-15); BUN 30 mg/dL (7-18); BUN/Creat Ratio 48.9 RATIO (10-20); Calcium,Total 8.9 mg/dL (8.5-10.1); Chloride 98 mmol/L (98-107); Creatinine, Serum 0.61 mg/dL (0.55-1.02); EST Glomerular Filtration Rate 103 mL/min (>60); Est Glom Filt Rate - Afr Amer 125 mL/min (>60); Estimated Creatinine Clearance 57.21 ml/min; Glucose 105 mg/dL (74-106); Potassium 3.7 mmol/L (3.5-5.1); Sodium Level 135 mmol/L (136-145)
[2024-07-06 08:47] VITALS: BP 119/48; PULSE 87; RESP 24; TEMP 36.6; O2SAT 97
[2024-07-06] MEDS: Cyanocobalamin 500 MCG Tablet 1000 MCG PO (08:50)
[2024-07-06] MEDS: Potassium Chloride Oral Tablet 20 MEQ PO (08:50)
[2024-07-06] MEDS: Furosemide 40 MG/4 ML Vial IV (08:50)
[2024-07-06] MEDS: dilTIAZem CD 180 MG Capsule 360 MG PO (08:50)
[2024-07-06] MEDS: TREPROSTINIL 64 MCG CART.INHAL INHALATION ×2 (08:50→13:34)
[2024-07-06] MEDS: Aspirin E.C. 81 MG Tablet PO (08:50)
[2024-07-06] MEDS: predniSONE 20 MG Tablet 40 MG PO (08:50)
[2024-07-06 09:55] VITALS: O2SAT 80; O2SAT 81; O2SAT 83; O2SAT 84; O2SAT 88; O2SAT 91; O2SAT 92
[2024-07-06 10:07] LABS: Differential Comment SCANNED; Platelet Estimate ADEQUATE (ADEQ)
[2024-07-06 10:08] LABS: Anisocytosis 1+; Target Cells RARE; Tear Drop Cell 1+
--- NOTE | 2024-07-06 12:06 | PCM.DC.SUM ---
Providers Date of Admission: 06/28/24 Date of Discharge: 07/06/24 Primary Care Physician: Dr. Hoda Del Rosario MD Consultations 06/28/24 15:46 Consult: Die Maker Bench Stamping / Pulmonary Medicine Routine Consulting Provider: Intensivists/Pulmonary Med Reason for Consult: acute on chronic respiratory failure EMERGENT Consult: No Notified: No Date Notified: 06/28/24 Time Notified: 15:05 06/29/24 08:28 Consult: Die Maker Bench Stamping / Pulmonary Medicine Routine Consulting Provider: Intensivists/Pulmonary Med Reason for Consult: acute on chronic resp failure EMERGENT Consult: No Notified: Yes Date Notified: 06/28/24 Time Notified: 08:28 Method of Notification: Answering Service Reason For Visit: ACUTE ON CHRONIC RESPIRATORY FAILURE Diagnosis Discharge Diagnosis (1) Acute on chronic respiratory failure with hypoxemia: Status: Chronic Code(s): J96.21 - Acute and chronic respiratory failure with hypoxia (2) Restrictive lung disease: Status: Chronic Code(s): J98.4 - Other disorders of lung Plan #Acute on chronic hypoxic respiratory failure due to flare up of interstitial lung disease On 4 L of oxygen though she gets short of breath with exertion. also on lasix. pulmonology on board. CTA of the chest done showed no evidence of PE but showed worsening pleural parenchymal disease and mediastinal lymphadenopathy On inhaled treprostinil in positive balance by 3.20L of fluid today. Continue diuresing with IV lasix. I dont know how accurate the input and output has been though, but will continue diuresing. She still required up to 10 L of oxygen with walking pulse ox today. She however says she feels like she is at her baseline at home and was willing to be discharged today. #Chronic pulmonary hypertension Had a right heart cath in September 2023 which showed evidence of pulmonary hypertension. This is likely due to the interstitial lung disease. #Metabolic alkalosis likely due to diuresis and hypercapnia. ABG from 06/29/2024 showed pCO2 of 56.1. bicarb is 34 today. has received IV acetazolamide during this admission. #Hypokalemia: Resolved. Potassium is 4 today. #Chronic HFpEF: on lasix. not in exacerbation #Benign essential hypertension: On lisinopril and Lasix as well as Cardizem #Hypothyroidism: On Synthroid #Hyperlipidemia: On statin DVT prophylaxis: Lovenox Disposition: for DC tomorrow. Patient does not want to go today because she says she does not have anybody who will pick her up today due to the bad weather. Medications at Discharge Home Medications acetaminophen 650 mg tablet,extended release 650 mg PO Q12H PAIN 09/21/22 levothyroxine 50 mcg tablet 50 mcg PO DAILY THYROID 09/21/22 potassium chloride 20 mEq tablet,extended release(part/cryst) (Klor-Con M) 20 meq PO BIDCM #30 tabs 09/27/22 calcium 333 mg-vit D3 133 unit-magnesium 133 mg-zinc 5 mg tablet (David Mag Zinc Plus D3) 2 tab PO DAILY 01/03/23 chlorpheniramine maleate 4 mg tablet (ChlorTabs) 4 mg PO Q4H PRN allergy symptoms 01/03/23 chromium picolinate 200 mcg tablet 200 mcg PO DAILY 01/03/23 echinacea 500 mg capsule 1,000 mg PO DAILY 01/03/23 garlic 1,000 mg capsule 1,000 mg PO DAILY 01/03/23 multivitamin (Daily Multi-Vitamin tablet) 1 tab PO DAILY 01/03/23 turmeric 400 mg capsule 400 mg PO DAILY 01/03/23 vitamin D3 25 mcg (1,000 unit)-vit K2 90 mcg disintegrating tablet (D3 Plus K2 Dots) 1 tab PO DAILY 01/03/23 vitamins A and D3 in cod liver oil 1,250 unit-135 unit capsule (cod liver oil) 1 cap PO DAILY 01/03/23 aspirin 81 mg tablet,delayed release 81 mg PO DAILY 02/05/23 fluticasone 500 mcg-salmeterol 50 mcg/dose blistr powdr for inhalation (Wixela Inhub) 1 inh inhalation BID #3 ea 11/09/23 treprostinil (Tyvaso DPI) 1 ea inhalation 4X/DAY 11/14/23 pravastatin 20 mg tablet 20 mg PO QHS #30 tabs 04/16/24 diltiazem HCl 360 mg capsule,extended release 24 hr 360 mg PO QDAY #90 caps 04/30/24 lisinopril 10 mg tablet 10 mg PO QDAY #90 tabs 06/04/24 cyanocobalamin (vitamin B-12) 1,000 mcg capsule 1,000 mcg PO DAILY 06/28/24 furosemide 40 mg tablet (Lasix) 40 mg PO BID 06/28/24 vitamin E 268 mg (400 unit) capsule 268 mg PO DAILY 06/28/24 prednisone 5 mg tablets in a dose pack See Taper PO UD #48 tabs 07/06/24 Hospital Course Operations None Procedures None Summary of Care Provided Minutes Spent on Discharge: 45 Hospital Course: Patient is a 68-year-old female with a history of severe interstitial lung disease with chronic respiratory failure usually on 6 L of oxygen at home at baseline. She follows up with pulmonology in [facility]. She has started inhaled treprostinil in September 2023 and had been titrated upwards. However the past few days prior to admission she developed upper respiratory symptoms with congestion and worsening shortness of breath. She says she was hypoxic with a saturation in the 50s and she had had a home health nurse coming to see her and called the EMS for her because she did not look good. On arrival in the ED she had to be placed on BiPAP. VBG done showed pH of 7.38 with pCO2 of 35. Labs were significant for lactic acid of 2.7. CT of the chest showed no PE but showed worsening pleural parenchymal disease as well as mediastinal lymphadenopathy. COVID, flu and RSV were negative. She was therefore admitted and managed for acute on chronic hypoxic respiratory failure due to flareup of her interstitial lung disease. Pulmonology was consulted. She was placed on IV Solu-Medrol. She was also placed on breathing treatments bronchodilators. Patient had a prolonged and protracted hospital course which Required Increasing Amounts of Oxygen. She Went up to 10 L of Oxygen. She Was Also Diuresed with IV Lasix to Help with Fluid Overload. With Time Her Baseline Oxygen Requirements Gradually Trended down to 4 L at Rest. Patient Preferred to follow-up with her shuttle route vehicle operator at [facility]. She deferred walking pulse ox on 07/06/2024 which showed that she required 4 L of oxygen at rest but went up to as high as 10 L with exertion. Of note shuttle route vehicle operator was on board throughout the admission. She was discharged home on 07/06/2024. She is follow-up with her primary care doctor and follow-up with her shuttle route vehicle operator as scheduled this week. She was discharged on the 4 L of oxygen at rest and up to 10 L with exertion. She was also discharged on a prednisone taper. Patient was seen and examined prior to discharge. She was agreeable to being discharged. She had an uneventful night. Review of systems otherwise negative. Labs and vitals reviewed. Home medication reviewed and reconciled. Physical Exam Const alert, oriented x3 and no apparent distress General Appearance: cooperative, comfortable, well kempt and well developed Orientation / Consciousness: awake, oriented to person, oriented to place and oriented to time Exam Limitations: no limitations HEENT normocephalic, head/scalp atraumatic, hearing grossly normal bilaterally, nasal mucous membranes and turbinates normal and moist oral mucous membranes Mouth: oral and palatal mucosa normal Eyes PERRL, EOMs intact bilaterally and conjunctivae normal Neck full ROM, no lymphadenopathy, supple, no JVD, thyroid normal and no carotid bruits General: trachea midline Lymph Lymphatic: no lymphadenopathy noted and no lymphedema noted Chest inspection of chest normal Resp Resp Narrative: mildly diminished breath sounds bilaterally, minimal wheezing, no crackles. On 4L of oxygen by nasal canula. Auscultation: Negative for rhonchi or wheezes Cardio regular rate, regular rhythm, S1 normal heart sound, S2 normal heart sound, no murmurs, no rub, no gallops and peripheral pulses 2+ throughout Peripheral Pulses: pulses 2+ throughout GI normal to inspection, nondistended, normoactive bowel sounds, soft to palpation, non-tender and non-distended Back/Spine normal ROM Extremity normal to inspection, full ROM, normal capillary refill, no clubbing, cyanosis or edema, no calf tenderness and no pedal edema General Extremity: no tenderness to palpation of joints or extremities Skin no rashes or lesions noted General Skin Exam: no breakdown Neuro oriented x3, CN's II-XII intact bilaterally, moves all extremities, no focal motor deficits and no sensory deficits noted Sensorium / Orientation: awake and alert Speech: speech normal Motor Exam: strength 5/5 throughout and general weakness Psych mental status grossly normal, thought process normal, cooperative and affect normal Appearance: appropriate Weight / BMI Weight Weight: 138 lb 10.732 oz Body Mass Index (BMI) 26.2 ABG / Lab / Microbiology Data 07/06/24 07:02 07/06/24 07:02 Laboratory: Laboratory Results - last 24 hr 07/06/24 07:02: WBC 15.0 H, RBC 4.89, Hgb 13.5, Hct 42.7, MCV 87.3, MCH 27.6, MCHC 31.6 L, RDW Std Deviation 50.4 H, RDW Coeff of [place] 15.9 H, Plt Count 375, MPV 9.6, Immature Gran % (Auto) 0.500, Neut % (Auto) 71.7 H, Lymph % (Auto) 12.0 L, [place] % (Auto) 14.0 H, Eos % (Auto) 1.7, Baso % (Auto) 0.1, Absolute Neuts (auto) 10.8 H, Absolute Lymphs (auto) 1.81, Nucleated RBC % 0, Differential Comment SCANNED, Diff Path Review September, Platelet Estimate ADEQUATE, Anisocytosis 1+, Target Cells RARE, Tear Drop Cells 1+, Sodium 135 L, Potassium 3.7, Chloride 98, Carbon Dioxide 33.0 H, Anion Gap 4 L, BUN 30 H, Creatinine 0.61, Estim Creat Clear Calc 57.21, Est GFR (MDRD) Af Amer 125, Est GFR (MDRD) Non-Af 103, BUN/Creatinine Ratio 48.9 H, Glucose 105, Calcium 8.9 Microbiology: Microbiology 06/28/24 11:05 Blood Culture (Wb) - Anticubital Right Blood Culture - Final No growth in 5 days. 06/28/24 11:15 Blood Culture (Wb) - Left Forearm Blood Culture - Final No growth in 5 days. 06/29/24 14:25 Sputum, Expectorated/Coughed Gram Stain - Final 06/29/24 14:25 Sputum, Expectorated/Coughed Respiratory Culture - Final Mixed normal respiratory alf. No Streptococcus pneumoniae, beta-hemolytic Streptococcus or Staphylococcus aureus isolated. 06/28/24 15:54 Mucosa - Nose Respiratory Panel (PCR) - Final 06/28/24 10:57 Mucosa - Nose SARS-CoV-2, Influenza & RSV (PCR) - Final D/C Instructions Discharge Diet: Low fat / Low cholesterol Discharge Activity: Return to Normal Activity Weight Bearing Status: Weight bearing as tolerated Call your doctor if you observe: Fever of 101 or Higher, Shortness of breath, Dizziness, Swelling in the ankles, Chest pain and Increased palpitations (irregular heartbeat) DC O2, CPAP, BIPAP Needs RN Home O2 Qualification: Home O2 Qualification: Is the patient on home oxygen Yes 07/06/24 09:55 Home O2 Qualification: AT REST 1-Pulse Ox at rest 81 07/06/24 09:55 1- Oxygen flow rate at rest 0 07/06/24 09:55 2-Pulse Ox at rest 83 07/06/24 09:55 2- Oxygen flow rate at rest 2 07/06/24 09:55 3-Pulse Ox at rest 91 07/06/24 09:55 3- Oxygen flow rate at rest 4 07/06/24 09:55 Home O2 Qualification: WITH AMBULATION 1- Pulse Ox with ambulation 80 07/06/24 09:55 1- Oxygen Flow Rate with 4 07/06/24 09:55 ambulation 2- Pulse Ox with ambulation 84 07/06/24 09:55 2- Oxygen Flow Rate with 6 07/06/24 09:55 ambulation 3- Pulse Ox with ambulation 88 07/06/24 09:55 3- Oxygen Flow Rate with 8 07/06/24 09:55 ambulation 3- Stopped test - Unable to No 07/05/24 11:10 obtain pulse ox >89% w/ max oxyg 4- Pulse Ox with ambulation 92 07/06/24 09:55 4- Oxygen Flow Rate with 10 07/06/24 09:55 ambulation PSN CPAP & BiPAP: BiPAP & CPAP Settings per PSN Mode BiPAP 07/01/24 03:49 Bipap Delivery Device Nasal Mask 07/01/24 03:49 BiPAP Inspiratory Pressure 12 07/01/24 03:49 BiPAP Expiratory Pressure 6 07/01/24 03:49 BiPAP Rate 12 06/29/24 04:00 Fraction of Inspired Oxygen ( 50 06/29/24 07:00 FIO2) Total Flow Rate 12 07/01/24 03:49 Home O2 Discharge instructions: Yes Type of respiratory needs?: Oxygen Oxygen frequency: Continuous Continuous oxygen liters per minute: 4L at rest, 10L with ambulation DC home with Oxygen: Yes Home O2 MD Review: I have reviewed the oxygen testing, and the patient qualifies for home oxygen equipment and portability. The patient is mobile in the home and the community. Meaningful Use Info Meaningful Use Meaningful Use Diagnoses (Choose all that apply): None applicable Ischemic Stroke Statin Dosing Therapy Reference: STATIN DOSE THERAPY REFERENCE: * Patients > 75 years receive moderate or high dose statin therapy. * Patients 75 years or YOUNGER should receive HIGH intensity statin dose unless contraindicated. You will be required to document reason for non-treatment if statin daily dose does not meet guidelines. HIGH DOSE STATIN THERAPY DAILY Atorvastatin > than or = to 40 mg Rosuvastatin > than or = to 20 mg Amlodipine + Atorvastatin > than or = to 2.5/40 mg Ezetimibe + Simvastatin 10/80 mg Simvastatin 80mg Discharge Plan Admission Admit Date/Time: 06/28/24 15:01 Primary Reason for Your Visit: acute on chronic hypoxic respiratory failure, flare up of ILD Attending Provider: Mamta Zavala Primary Care Provider: Hoda Del Rosario Consulting Providers: Ángel Amanda; Dallin Galdamez; Mike Washington; Kelvin Bennett; Kamari Shi; Kory Vaca; Alejandro Bass; James Paredes; Suzan Mccormick; Emigdio Spain; Darius Sepulveda; Rob Solorio; Katherin Meeks; Urban June; Constance Mason; Elpidio Maciel; Estiven Gonzalez; Herrera Saleh; Brayan Luis; Poonam Hale; Bala Jennings; Ryan Huitron; Norman Murillo; Luthre Murray; Silvestre Suero Instructions Patient Instructions: Interstitial Lung Disease Discharge Orders/Prescriptions Prescriptions: New prednisone 5 mg tablets,dose pack See Taper PO UD Qty: 48 0RF Taper: Prednisone Taper 60 mg WITH BREAKFAST for 3 Days and 0 Hour 50 mg WITH BREAKFAST for 3 Days and 0 Hour 40 mg WITH BREAKFAST for 3 Days and 0 Hour 30 mg WITH BREAKFAST for 3 Days and 0 Hour 20 mg WITH BREAKFAST for 3 Days and 0 Hour 10 mg WITH BREAKFAST for 3 Days and 0 Hour Continued aspirin 81 mg tablet,delayed release (DR/EC) 81 mg PO DAILY Tyvaso DPI 16(112)-32(112) -48(28) mcg cartridge with inhaler 1 ea inhalation 4X/DAY Patient Comments: pt has with her. diltiazem HCl 360 mg capsule,extended release 24hr 360 mg PO QDAY Qty: 90 3RF acetaminophen 650 mg Tablet Extended Release 650 mg PO Q12H levothyroxine 50 mcg tablet 50 mcg PO DAILY potassium chloride [Klor-Con M20] 20 mEq Tablet,Er Particles/Crystals 20 meq PO BIDCM Qty: 30 0RF chlorpheniramine maleate [ChlorTabs] 4 mg tablet 4 mg PO Q4H PRN (Reason: allergy symptoms) vit A and D3 in cod liver oil [cod liver oil] 1,250-135 unit capsule 1 cap PO DAILY garlic 1,000 mg capsule 1,000 mg PO DAILY turmeric 400 mg capsule 400 mg PO DAILY multivitamin [Daily Multi-Vitamin] Tablet 1 tab PO DAILY echinacea 500 mg capsule 1,000 mg PO DAILY Rx Instructions: administer with meals chromium picolinate 200 mcg tablet 200 mcg PO DAILY calcium carb-D3-mag ox-zinc ox [David Mag Zinc Plus D3] 333 mg-133 unit -133 mg-5 mg tablet 2 tab PO DAILY D3 Plus K2 Dots 25 mcg (1,000 unit)-90 mcg tablet,disintegrating 1 tab PO DAILY cyanocobalamin (vitamin B-12) 1,000 mcg capsule 1,000 mcg PO DAILY vitamin E 268 mg (400 unit) capsule 268 mg PO DAILY furosemide [Lasix] 40 mg tablet 40 mg PO BID fluticasone propion-salmeterol [Wixela Inhub] 500-50 mcg/dose blister with device 1 inh inhalation BID Qty: 3 3RF pravastatin 20 mg tablet 20 mg PO QHS Qty: 30 11RF lisinopril 10 mg tablet 10 mg PO QDAY Qty: 90 3RF Referrals / Follow Up: Kamari Shi DO [Med Staff - Active Staff] - Within 2 Weeks Hoda Del Rosario MD [Primary Care Provider] - Within 1 Week Disposition Disposition (needs filled in before D/C Order can be placed): Home, Self Care Charges/Coding Visit Charges Inpatient E&M: 46289 Disch Hosp >30min
--- NOTE | 2024-07-06 12:41 | NURSING ---
Updated [place] [facility] [place]
--- NOTE | 2024-07-06 13:33 | PN.CC_ITS ---
Objective Data Objective Data Vital Signs: Vital Signs Last response 3 Temperature 36.6 C 07/06/24 08:47 Temperature Source Oral 07/06/24 08:47 Pulse Rate 87 07/06/24 08:47 Pulse Strength Normal (2+) 07/05/24 20:29 Respiratory Rate 24 H 07/06/24 08:47 Respiratory Effort Normal, Non-Labored 07/06/24 08:45 Respiratory Depth Normal 07/06/24 08:45 Respiratory Pattern Normal 07/06/24 08:45 Blood Pressure 119/48 L 07/06/24 08:47 Blood Pressure Mean 71 07/06/24 08:47 Blood Pressure Source Monitor 07/06/24 04:20 Blood Pressure Position Semi-Fowlers 07/06/24 04:20 Blood Pressure Location Right Arm 07/06/24 04:20 Pulse Ox 97 07/06/24 08:47 Oxygen Delivery Method Nasal Cannula 07/06/24 08:47 Oxygen Flow Rate (L/min) 4 07/06/24 08:47 Fraction of Inspired Oxygen (FIO2) 50 06/29/24 07:00 I&O: I&O Last 24 Hours 3 07/05/24 07/06/24 07/06/24 23:59 11:59 23:59 Intake Total 240 / 440 240 / 240 Balance 240 / 440 240 / 240 I&O: Total Stay 3 06/28/24 10:54 thru 07/06/24 06:00 Intake Total 6434.54 Output Total 2150 Balance 4284.54 Current Meds Ordered / Administered: Current meds ordered / Administered 3 Generic Name Dose Route Start Last Admin Trade Name Casimiro PRN Reason Stop Dose Admin Acetaminophen 650 mg 06/28/24 15:46 07/05/24 22:17 Acetaminophen 325 Mg Tablet PO 650 mg Q6H PRN PRN Administration Pain 1-10 Or Fever>100.7 Albuterol/Ipratropium 3 ml 06/28/24 15:46 07/06/24 07:25 Ipratropium/Albuterol Sulfate 3 Ml Ampul.Neb INHALATION 3 ml Q6HWA.RT MARLYN Administration Aspirin 81 mg 06/29/24 08:00 07/06/24 08:50 Aspirin E.C. 81 Mg Tablet PO 81 mg BREAKFAST MARLYN Administration Cyanocobalamin 1,000 mcg 06/29/24 10:00 07/06/24 08:50 Cyanocobalamin 500 Mcg Tablet PO 1,000 mcg DAILY MARLYN Administration Diltiazem HCl 360 mg 06/29/24 10:00 07/06/24 08:50 Diltiazem Cd 180 Mg Capsule PO 360 mg DAILY MARLYN Administration Enoxaparin Sodium 40 mg 06/29/24 10:00 07/06/24 08:51 Enoxaparin 40 Mg/0.4 Ml Syringe SC Not Given DAILY MARLYN Furosemide 40 mg 07/01/24 18:00 07/06/24 08:50 Furosemide 40 Mg/4 Ml Vial IV 40 mg BIDLX MARLYN Administration Protocol Sodium Chloride 100 mls @ 15 mls/hr 06/28/24 16:05 IV .Q6H40M PRN Saline Flush Sodium Chloride 100 mls @ 15 mls/hr 06/28/24 16:05 IV .Q6H40M PRN Additional IVPB Infusion Levothyroxine Sodium 50 mcg 06/29/24 06:00 07/06/24 05:12 Levothyroxine 50 Mcg Tablet PO 50 mcg DAILY@0600 MARLYN Administration Lisinopril 10 mg 06/29/24 17:00 07/05/24 18:32 Lisinopril 10 Mg Tablet PO 10 mg DAILY@1700 [facility] Administration Protocol Melatonin 3 mg 06/28/24 15:46 Melatonin 3 Mg Tablet PO QHS PRN PRN INSOMNIA Ondansetron HCl 4 mg 06/28/24 15:46 Ondansetron 4 Mg/2 Ml Vial IV Q8H PRN PRN NAUSEA/VOMITING Potassium Chloride 20 meq 06/29/24 17:00 07/06/24 08:50 Potassium Chloride Oral Tablet 20 Meq PO 20 meq BIDCM MARLYN Administration Pravastatin Sodium 20 mg 06/28/24 22:00 07/05/24 22:17 Pravastatin 20 Mg Tablet PO 20 mg QHS MARLYN Administration Prednisone 40 mg 07/04/24 08:00 07/06/24 08:50 Prednisone 20 Mg Tablet PO 40 mg BREAKFAST MARLYN Administration Sodium Chloride 10 - 40 ml 06/28/24 16:05 07/03/24 17:17 0.9% Saline Lock 10 Ml Syringe IV 10 ml UD PRN Administration SALINE FLUSH Lab / Micro Data Attestation: I reviewed the patient's lab results. 07/06/24 07:02 07/06/24 07:02 Labs: Laboratory Results - last 24 hr 07/06/24 07:02: WBC 15.0 H, RBC 4.89, Hgb 13.5, Hct 42.7, MCV 87.3, MCH 27.6, M CHC 31.6 L, RDW Std Deviation 50.4 H, RDW Coeff of [place] 15.9 H, Plt Count 375, MPV 9.6, Immature Gran % (Auto) 0.500, Neut % (Auto) 71.7 H, Lymph % (Auto) 12.0 L, [place] % (Auto) 14.0 H, Eos % (Auto) 1.7, Baso % (Auto) 0.1, Absolute Neuts (auto) 10.8 H, Absolute Lymphs (auto) 1.81, Nucleated RBC % 0, Differential Comment SCANNED, Diff Path Review May foll, Platelet Estimate ADEQUATE, Anisocytosis 1+, Target Cells RARE, Tear Drop Cells 1+, Sodium 135 L, Potassium 3.7, Chloride 98, Carbon Dioxide 33.0 H, Anion Gap 4 L, BUN 30 H, Creatinine 0.61, Estim Creat Clear Calc 57.21, Est GFR (MDRD) Af Amer 125, Est GFR (MDRD) Non-Af 103, BUN/Creatinine Ratio 48.9 H, Glucose 105, Calcium 8.9 Assessment and Plan . Assessment and plan: 1. Acute on chronic hypoxemic respiratory failure Apparently acute on chronic PH-ILD- apparently [employer]-PH in the setting of chronic HP. If the patient does not begin to improve from a respiratory perspective, she may require transfer for further evaluation and intervention to a PH referral center. 2. History of heart failure with preserved ejection fraction/hypertension/hyperlipidemia/hypothyroidism Complicates care, management, recovery and prognosis. Continue home medications as indicated. RECOMMENDATIONS: 1. Continue ongoing attempts at diuresis as tolerated by hemodynamics and renal function. 2. Perform walking oximetry study today. 3. Continue prednisone 40 mg daily. 4. Continue to wean supplemental oxygen to maintain saturations at or above 90%. 5. Continue Tyvaso per home regimen- indicates will follow up with PH center physician in [place]. Critical Care Time: The entirety of this encounter was done via Telemedicine Physical Exam Const alert, oriented x3 and no apparent distress General Appearance: cooperative, comfortable and well kempt Subjective Subjective States she is doing well and home discharge planned today. Only wore BiPAP 2 1/2 hours last night, eager for discharge home apparently.
[2024-07-06 13:41] VITALS: BP 146/54; PULSE 98; RESP 20; TEMP 36.6; O2SAT 97
[2024-07-07 13:26] LABS: Pathologist Review Reviewed
[2024-07-07 13:28] LABS: Pathologist Review Reviewed
[2024-07-07 13:37] LABS: Pathologist Review Reviewed
== END 2024-07-06 14:30 | disposition home or self-care (01) | DRG 196 ==
LOC: ED 15:08 → ICU 15:10 → PCU 06-29 17:28
PROVIDERS: Internal Medicine; Admitting Provider Hospitalist; Emergency Provider Emergency Medicine; PCP Family Medicine; Visit Provider Student in an Organized Health Care Education/Training Program
DX: J84.10 Pulmonary fibrosis, unspecified (principal); J96.21 Acute and chronic respiratory failure with hypoxia; E87.3 Alkalosis; I50.32 Chronic diastolic (congestive) heart failure; I27.81 Cor pulmonale (chronic); I27.20 Pulmonary hypertension, unspecified; J44.9 Chronic obstructive pulmonary disease, unspecified; I11.0 Hypertensive heart disease with heart failure; E03.9 Hypothyroidism, unspecified; G47.33 Obstructive sleep apnea (adult) (pediatric); E78.5 Hyperlipidemia, unspecified; I25.10 Atherosclerotic heart disease of native coronary artery without angina pectoris; E87.6 Hypokalemia; M19.90 Unspecified osteoarthritis, unspecified site; E87.70 Fluid overload, unspecified; Z79.890 Hormone replacement therapy; Z87.891 Personal history of nicotine dependence; R59.0 Localized enlarged lymph nodes; Z11.52 Encounter for screening for COVID-19; Z99.81 Dependence on supplemental oxygen; Z79.899 Other long term (current) drug therapy; Z79.82 Long term (current) use of aspirin; Z79.02 Long term (current) use of antithrombotics/antiplatelets; Z79.51 Long term (current) use of inhaled steroids
CPT/HCPCS: 36415; 36600; 71045; 71275; 80048; 80076; 82803; 83605; 83880; 84145; 84484; 85025; 85027; 87040; 87070; 87205; 87631; 87633; 93005; 94002; 94003; 94640; 94668; 94762; 99285; Q9967; A4216; J1940

== ENCOUNTER → 2024-07-17 | Outpatient (CLI) | payer MEDICARE, SELFPAY ==
[2024-07-17 15:40] LABS: Anion Gap 10 (5-15); BUN 20 mg/dL (7-18); Calcium,Total 9.8 mg/dL (8.5-10.1); Chloride 92 mmol/L (98-107); Creatinine, Serum 0.95 mg/dL (0.55-1.02); EST Glomerular Filtration Rate 62 mL/min (>60); Est Glom Filt Rate - Afr Amer 75 mL/min (>60); Glucose 199 mg/dL (74-106); Potassium 4.4 mmol/L (3.5-5.1); Sodium Level 131 mmol/L (136-145)
== END | disposition home or self-care (01) ==
LOC: BFHLAB 13:49
PROVIDERS: PCP Family Medicine; Visit Provider Family Medicine
DX: I27.20 Pulmonary hypertension, unspecified (principal)
CPT/HCPCS: 36415; 80048

== ENCOUNTER → 2024-09-04 | Outpatient (CLI) | payer MEDICARE, SELFPAY ==
--- NOTE | 2024-09-04 09:59 | PR.HP_ITS ---
History of Present Illness General Arrival date:: 09/04/24 Arrival time:: 09:59 Date of Referral:: 04/22/24 Date of Evaluation: 09/04/24 Referring Physician: Dr. Del Rosario Primary Diagnosis: Pulmonary HTN History of Present Pulmonary Event [facility] Breathless Scale: When is the patient short of breath? Y/N Grade: Description of Breathlessness: 0 I only get breathless with strenuous exercise. 1 I get short of breath when hurrying on level ground or walking up a slight hill. 2 On level ground, I walk slower than people of the same age because of breathless, or have to stop for breath when walking at my own pace. 3 I stop for breath after walking 100 yards or after a few minutes on level ground. 4 I am too breathless to leave the house or I am breathless when dressing. Respiratory Problems: Yes Retain Secretions, Fatigue, Able to Speak in Full Sentences, Hoarseness, Anxiety, Dyspnea with Activity and Cough with Secretions; No Limited Range of Motion, Chest Pain, Wheezing, Dizziness, Ankle Swelling, Panic, Dyspnea at Rest or Dyspnea Lying Down Flat Medications Home Medications acetaminophen 650 mg tablet,extended release 650 mg PO Q12H PAIN 09/21/22 levothyroxine 50 mcg tablet 50 mcg PO DAILY THYROID 09/21/22 potassium chloride 20 mEq tablet,extended release(part/cryst) (Klor-Con M) 20 meq PO BIDCM #30 tabs 09/27/22 calcium 333 mg-vit D3 133 unit-magnesium 133 mg-zinc 5 mg tablet (David Mag Zinc Plus D3) 2 tab PO DAILY 01/03/23 chlorpheniramine maleate 4 mg tablet (ChlorTabs) 4 mg PO Q4H PRN allergy symptoms 01/03/23 chromium picolinate 200 mcg tablet 200 mcg PO DAILY 01/03/23 echinacea 500 mg capsule 1,000 mg PO DAILY 01/03/23 garlic 1,000 mg capsule 1,000 mg PO DAILY 01/03/23 multivitamin (Daily Multi-Vitamin tablet) 1 tab PO DAILY 01/03/23 turmeric 400 mg capsule 400 mg PO DAILY 01/03/23 vitamin D3 25 mcg (1,000 unit)-vit K2 90 mcg disintegrating tablet (D3 Plus K2 Dots) 1 tab PO DAILY 01/03/23 vitamins A and D3 in cod liver oil 1,250 unit-135 unit capsule (cod liver oil) 1 cap PO DAILY 01/03/23 aspirin 81 mg tablet,delayed release 81 mg PO DAILY 02/05/23 fluticasone 500 mcg-salmeterol 50 mcg/dose blistr powdr for inhalation (Wixela Inhub) 1 inh inhalation BID #3 ea 11/09/23 treprostinil (Tyvaso DPI) 1 ea inhalation 4X/DAY 11/14/23 pravastatin 20 mg tablet 20 mg PO QHS #30 tabs 04/16/24 diltiazem HCl 360 mg capsule,extended release 24 hr 360 mg PO QDAY #90 caps 04/30/24 lisinopril 10 mg tablet 10 mg PO QDAY #90 tabs 06/04/24 cyanocobalamin (vitamin B-12) 1,000 mcg capsule 1,000 mcg PO DAILY 06/28/24 furosemide 40 mg tablet (Lasix) 40 mg PO BID 06/28/24 vitamin E 268 mg (400 unit) capsule 268 mg PO DAILY 06/28/24 prednisone 5 mg tablets in a dose pack See Taper PO UD #48 tabs 07/06/24 Allergies Allergies Penicillins Allergy (Verified 04/30/24 13:51) Hives Secretions Thin:: Yes Amount/Day:: 1 TSP AM: Yes PM: Yes Sleep Disorder Evaluation Hx of Sleep Apnea: Yes Do you snore loudly (louder than talking or can be heard through closed doors)?: No Do you often feel tired/ fatigued/ sleepy during daytime?: No Has anyone observed you stop breathing during sleep?: No History of Hypertension (for STOP score): No STOP Results: Negative Medical Utilization Medical Utilization Do you see your physician on a regular schedule?: Yes Advanced Directives Advanced Directives Do you have a Healthcare Power of Machine Repairer Maintenance?: No Living Will: No Advance Directives Information Provided: No Advance Directives on File: No DNR Order?:: No Past Medical History Covid-19 Screening Physicial Symptoms Other Clinical Concerns Exposure Risk Pertinent Comorbidities 65 years or older:: Yes Has a chronic lung disease or moderate to severe asthma:: Yes Medical History Past Medical History (Updated 07/14/24 @ 00:03 by Background Chase) Acute on chronic respiratory failure with hypoxemia J96.21 CHRIS (obstructive sleep apnea) G47.33 Coronary artery disease I25.10 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 RESOLVED WITH WATER PILL Chronic respiratory failure with hypoxia J96.11 CHF (congestive heart failure) I50.9 Hypothyroid E03.9 ON MED Surgical History Past Surgical History History of left heart catheterization (~04/16/23) Z98.890 Hx of tonsillectomy Z90.89 1994 WITH CYST REMOVED FROM TONGUE History of excision of lesion Z98.890, Z87.2 CYST REMOVED Hx of left cataract extraction Z98.42 2022 Hx of right cataract extraction Z98.41 2022 History of right hip replacement Z96.641 2022 Significant Family History Family History Father , 53 CVA (cerebral vascular accident) CAD (coronary artery disease) Myocardial infarction Brother Myocardial infarction CAD (coronary artery disease) Brother CAD (coronary artery disease) stent Brother CAD (coronary artery disease) stent Social History Alcohol Use Alcohol Usage: No Substance Abuse Hx Substance Use: No Occupation Occupation (List type of work in comments):: Retired Functioning ADL/IADL Current Ability Current Ability: Dependent: Ambulation and Independent: Self-Care (e.g., grooming, dressing, & bathing), Independent: Transfer and Independent: Household tasks (e.g., light meal prep, laundry, shopping) Pt Functioning Prior to Problem Prior Functioning: Self-Care (e.g.,grooming, dressing, & bathing): Independent, Ambulation: Independent, Transfer: Independent and Household tasks (e.g., light meal prep, laundry, shopping): Independent Social Environment Status Marital Status: Current Living Arrangements Living Environment:: Spouse Children How many children do you have?: 0 Do any of your children live nearby?: No Safety Do you feel safe in your surroundings?: Yes Assistance Do you need any assistance at home?: no Review of Systems Review of Systems Review of Systems Respiratory: Reports Cough, SOB upon Exertion and Sputum production; Denies Hemoptysis, Pleuritic Pain, SOB at Rest, Wheezing, Appetite, Normal, Dizziness/Lightheadedness, Fatigue, PVD, Sexual changes or Sleep, Normal Pain Is Patient Pain Free?: Yes Risk Factor Assessment Chief Complaint Chief Complaint: Pulmonary HTN Vital Signs Pulse Rate: 92 Pulse Rhythm: Regular Pulse Ox: 92 (on 5 L) Blood Pressure: 134/68 Diabetes Nutrition Referral for Diabetes: No Obesity Height: 5 ft 1 in Weight:: 156 lb Weight in Pounds: 156.0 lbs Body Mass Index (BMI): 29.5 Nutritional Referral for Obesity: No Risk Stratification Risk Guidelines: Lowest Risk: Risk Factor for Smoking, Moderate Risk: Risk Factor for Diabetes, Risk Factor for Obesity and Risk Factor for Depression and Highest Risk: Risk Factor for Dyslipidemia, Risk Factor for Hypertension and Risk Factor for Sedentary Lifestyle For Smoking Smoking Risk Guidelines For Dyslipidemia Dyslipidemia Risk Guidelines For Diabetes Mellitus Diabetes Risk Guidelines For Obesity/Overweight Obesity/Overweight Risk Guidelines For Hypertension Hypertension Risk Guidelines For Sedentary Lifestyle Sedentary Lifestyle Risk Guidelines For Depression Depression Risk Guidelines Motivation Motivation to Participate On a scale of 1 to 10, how prepared are you to commit to attending program?: 10 What do you see as barriers to successfully being able to complete the program?: nothing What do you see as the benefits of succesfully completing the program? In other words, what do you hope to get out of participating in the program?: be more active Are there issues you are dealing with that will interfere with completing the program?: no Do you have a spouse or signficant other, family or friends who will help support you to complete the program?: yes Diagnostic Data Review 6 Minute Walk Test 6 Minute Walk Test: 295 steps. Required 6 L continuous
[2024-09-04 10:23] VITALS: BP 134/68; PULSE 92; O2SAT 92
--- NOTE | 2024-09-04 10:52 | PCM.PR.TP ---
General Information2 General Information Admitting Diagnosis: Pulmonary HTN Personal Learning Style/Barriers Personal Learning Style:: Audio/Visual Barriers to Learning: None Stage of change r/t lifestyle modifications: Contemplation Education/Goals MO Patient Goals: Increase muscle strength: Initial Assessment, Experience less dyspnea: Initial Assessment, Improve energy level: Initial Assessment, Participate in home exercise: Initial Assessment, Improve the ability to cope with ADLs: Initial Assessment, Increase knowledge of oxygen use: Initial Assessment, Control panic/anxiety: Initial Assessment, Improve my quality of life: Initial Assessment and Reduce Stress/relaxation techniques: Initial Assessment Exercise - Initial Assessment Visit Date of Eval: 09/04/24 (initial eval ) Problem/Goals Problems: Deconditioning, No regular exercise, Knowledge deficit exercise guidelines and Knowledge deficit exercise safety Goals:: Aerobic exercise 30-60 mins x 12 weeks [36 sessions] Functional Capacity Test Number of feet walked: 295 Physician Prescribed Exercise Modalities: Treadmill, Rower, [employer] AD-7, [employer] Stepper, [employer] Pro-II Ergometer and [employer] Lateral Second Steward Frequency (days/week): 3 Duration (Minutes):: 30-45 Intensity: 60-80% of age predicted maximum heart rate reserve Current METSs:: 2 Target HR:: 114 (91-114) Resting Blood Pressure: 134/68 Minimum SpO2 with exercise: 92 (pt was on 5 L) Plan Plan and Plan to Review:: Benefits of exercise, Core components of exercise, How to measure dyspnea level, How to monitor dyspnea level, Exercise intensity, Exercise safety guideline, Home exercise guidelines and Royer: 3-4/11-13 Nutrition/Wt Mgmt - Initial Visit Date of Eval: 09/04/24 (initial eval ) Weight Management Admit Height:: 5 ft 1 in Admit Weight:: 156 lb Admit BMI:: 29.5 Intervention Referral to dietitian:: No Will attend diet classes:: Yes Intervention/Plan: Instruct on ideal BMI & set weight loss goal w/patient, Assist pt to ID & incorporate diet changes for weight loss by S9, Refer to Structured Weight Loss program as appropriate, Encourage goal of using 250-300dcal per session for weight loss and Other additional plan/interventions Plan Nutrition Plan: Yes: Review BMI or WC & identify target wt & strategies for wt control, Yes: Nutrition education class:, Yes: Medication education class [Prednisone]:, Yes: Weight control education class:, Yes: Education re: Need for ongoing weight monitoring, Yes: Food diary: and Yes: Physical activity log: Nutrition/Wt Mgmt - 30-Day Weight Management Height: 5 ft 1 in Weight:: 156 lb BMI: 29.5 Nutrition/Wt Mgmt - 60-Day Weight Management Height: 5 ft 1 in Weight:: 156 lb BMI: 29.5 Nutrition/Wt Mgmt - 90-Day Weight Management Height: 5 ft 1 in Weight:: 156 lb BMI: 29.5 Nutrition/Wt Mgmt - Final Weight Management Height: 5 ft 1 in Weight:: 156 lb BMI: 29.5 Psychosocial - Initial Assess Visit Date of Eval: 09/04/24 (initial eval ) Problems/Goals History of Emotional Disorders: None (Pt does admit to occas. being depressed due to health) Psychosocial Goals: 1. Patient is free from overwhelming symtoms of depression (or anxiety, 2. Identifies personal stressors & states the strategies for managing, 3. Identifies activities to decrease isolation and/or symptoms of, 4. Improved psychosocial coping skills., 5. Verbalizes coping strategies., 6. Adequate treatment of depression. and 7. Improved Q.O.L. Self-reported stressors: Medical/Health and Recent Illness Psychosocial Test Tool Used:: Pulmonary QOL and PHQ-9 Questionnaire Pulmonary QOL Score: 10 Referral to Behavioral Health PS - Interventions: Yes: Attend Stress Management Classes Intervention/Plan: See List Interventions/Plan:: Assess stressors,coping strategies & signs of derpression on admission, Instruct/assist pt to develop coping & personal stress Mgt strategies, Refer to Behavioral Health if appropriate, Refer to Physician if appropriate, Instruct patient to recognize signs & symptoms of depression, Instruct patient to recog and Other additional plan/intervention Comments:: Pt will attend stress management class. Psychosocial - 30-Day Problems/Goals History of Emotional Disorders: None (Pt does admit to occas. being depressed due to health) Psychosocial Goals: 1. Patient is free from overwhelming symtoms of depression (or anxiety, 2. Identifies personal stressors & states the strategies for managing, 3. Identifies activities to decrease isolation and/or symptoms of, 4. Improved psychosocial coping skills., 5. Verbalizes coping strategies., 6. Adequate treatment of depression. and 7. Improved Q.O.L. Self-reported stressors: Medical/Health and Recent Illness Psychosocial Test Tool Used:: Pulmonary QOL and PHQ-9 Questionnaire Pulmonary QOL Score: 10 Referral to Behavioral Health PS - Interventions: Yes: Attend Stress Management Classes Plan Interventions/Plan:: Assess stressors,coping strategies & signs of derpression on admission, Instruct/assist pt to develop coping & personal stress Mgt strategies, Refer to Behavioral Health if appropriate, Refer to Physician if appropriate, Instruct patient to recognize signs & symptoms of depression, Instruct patient to recog and Other additional plan/intervention Comments:: Pt will attend stress management class. Psychosocial - 60-Day Problems/Goals History of Emotional Disorders: None (Pt does admit to occas. being depressed due to health) Psychosocial Goals: 1. Patient is free from overwhelming symtoms of depression (or anxiety, 2. Identifies personal stressors & states the strategies for managing, 3. Identifies activities to decrease isolation and/or symptoms of, 4. Improved psychosocial coping skills., 5. Verbalizes coping strategies., 6. Adequate treatment of depression. and 7. Improved Q.O.L. Self-reported stressors: Medical/Health and Recent Illness Psychosocial Test Tool Used:: Pulmonary QOL and PHQ-9 Questionnaire Pulmonary QOL Score: 10 Referral to Behavioral Health PS - Interventions: Yes: Attend Stress Management Classes Plan Interventions/Plan:: Assess stressors,coping strategies & signs of derpression on admission, Instruct/assist pt to develop coping & personal stress Mgt strategies, Refer to Behavioral Health if appropriate, Refer to Physician if appropriate, Instruct patient to recognize signs & symptoms of depression, Instruct patient to recog and Other additional plan/intervention Comments:: Pt will attend stress management class. Psychosocial - 90-Day Problems/Goals History of Emotional Disorders: None (Pt does admit to occas. being depressed due to health) Psychosocial Goals: 1. Patient is free from overwhelming symtoms of depression (or anxiety, 2. Identifies personal stressors & states the strategies for managing, 3. Identifies activities to decrease isolation and/or symptoms of, 4. Improved psychosocial coping skills., 5. Verbalizes coping strategies., 6. Adequate treatment of depression. and 7. Improved Q.O.L. Self-reported stressors: Medical/Health and Recent Illness Psychosocial Test Tool Used:: Pulmonary QOL and PHQ-9 Questionnaire Pulmonary QOL Score: 10 Referral to Behavioral Health PS - Interventions: Yes: Attend Stress Management Classes Plan Interventions/Plan:: Assess stressors,coping strategies & signs of derpression on admission, Instruct/assist pt to develop coping & personal stress Mgt strategies, Refer to Behavioral Health if appropriate, Refer to Physician if appropriate, Instruct patient to recognize signs & symptoms of depression, Instruct patient to recog and Other additional plan/intervention Comments:: Pt will attend stress management class. Psychosocial - Final Assess Problems/Goals History of Emotional Disorders: None (Pt does admit to occas. being depressed due to health) Psychosocial Goals: 1. Patient is free from overwhelming symtoms of depression (or anxiety, 2. Identifies personal stressors & states the strategies for managing, 3. Identifies activities to decrease isolation and/or symptoms of, 4. Improved psychosocial coping skills., 5. Verbalizes coping strategies., 6. Adequate treatment of depression. and 7. Improved Q.O.L. Self-reported stressors: Medical/Health and Recent Illness Psychosocial Test Tool Used:: Pulmonary QOL and PHQ-9 Questionnaire Pulmonary QOL Score: 10 Referral to Behavioral Health PS - Interventions: Yes: Attend Stress Management Classes Plan Interventions/Plan:: Assess stressors,coping strategies & signs of derpression on admission, Instruct/assist pt to develop coping & personal stress Mgt strategies, Refer to Behavioral Health if appropriate, Refer to Physician if appropriate, Instruct patient to recognize signs & symptoms of depression, Instruct patient to recog and Other additional plan/intervention Comments:: Pt will attend stress management class. Oxygen & Oxygen Titration Init Visit Date of Eval: 09/04/24 (initial eval ) Initial Assessment Oxygen on Admission: Continuous home use SpO2:: 92 (pt was on 5 L) Patient Reports:: Prod cough daily <1 Tbsp Goal Oxygen & Oxygen Tritration Goals: Effective hypoxemia control and Uses O2 as Rx'd/safely Plans Plan: Monitor SpO2 rest & with exercise, Recommend appropriate FiO2 to Pt/MD, Assist to contact DME for O2, Train appropriate O2 use at rest, Train appropriate O2 use with exercise and Train O2 safety & systems Reviewed prescribed medications:: Purpose, Schedule, Side effects and Importance of compliance Instruct correct technique/timing & care:: MDI, DPI, Nebulizer and Return demo use of inhaler Bronchial Hygiene Plan: Controlled cough, CPT, Vibratory PEP device, VEST, Role of exercise in secretion clearance, NS Nasal spray, Hydration, Hand hygiene, Evaluate sputum, When to call MD, Signs/symptoms to report:, Influenza/Pneumovax vaccines and Cleaning of respiratory equipment Oxygen & Oxygen Titration 30D Reassessment SpO2:: 92 (pt was on 5 L) Oxygen & Oxygen Titration 60D Reassessment SpO2:: 92 (pt was on 5 L) Oxygen & Oxygen Titration 90D Reassessment SpO2:: 92 (pt was on 5 L) Oxygen & Oxygen Titration HELADIO Reassessment SpO2:: 92 (pt was on 5 L) Core Components - Initial Visit Date of Eval: 09/04/24 (initial eval ) Hypertension Hypertension Diagnosis:: Hypertension ICD-10 I10 BP: 134/68 [place] [employer] Hypertension Guidelines Outcomes/Goals: Able to verbalize/achieve optimal blood pressure <130/80, Incorporates diet changes & exercise for blood pressure control by DC and Other additional outcomes/goals Tobacco - Initial Assessment Tobacco Program Goals Tobacco Use: Non-smoker Gave Education Materials For:: Tobacco Triggers, Pulmonary Disease, Risk Factors, Breathing Techniques, Medical Compliance, Pulmonary A&P, Exacerbation Signs & Symptoms and Stress & Relaxation Exacerbation Mgmt & Airway Clearance Problems:: Poor knowledge of O2 use/safety Hypoxemia Goals:: Hypoxemia managed, Port system and Using O2 as Rx's safely Bronchial Hygiene Problems:: Ineffective secretion clearance and Respiratory infection Prevention/Management Goals: Pt demonstrates effective cough, effective secretion clearance. and Pt describes signs and symptoms of infection. Patient Reports:: Prod cough daily <1 Tbsp Plan: Monitor SpO2 rest & with exercise, Recommend appropriate FiO2 to Pt/MD, Assist to contact DME for O2, Train appropriate O2 use at rest, Train appropriate O2 use with exercise and Train O2 safety & systems Instruct correct technique/timing & care:: MDI, DPI, Nebulizer and Return demo use of inhaler Bronchial Hygiene Plan: Controlled cough, CPT, Vibratory PEP device, VEST, Role of exercise in secretion clearance, NS Nasal spray, Hydration, Hand hygiene, Evaluate sputum, When to call MD, Signs/symptoms to report:, Influenza/Pneumovax vaccines and Cleaning of respiratory equipment Medication Interventions/plans: Instruct on medication effects & side effects, Review medication list w/patient every two weeks and Instruct importance of taking meds as ordered & assist problem solving Medication Goals: Adherence to prescribed medications and Correct technique/timing & care of MDI, DPI, nebulizer, and spacer. Medications: Yes: MDI, Yes: DPI, Yes: NEB and Yes: Spacer Reviewed prescribed medications:: Purpose, Schedule, Side effects and Importance of compliance Diabetes Diabetes:: No Referral to dietitian:: No Will attend diet classes:: Yes Core Components - 30 DAYS Hypertension Hypertension Diagnosis:: Hypertension ICD-10 I10 Resting Blood Pressure:: 134/68 [place] [employer] Hypertension Guidelines Outcomes/Goals: Able to verbalize/achieve optimal blood pressure <130/80, Incorporates diet changes & exercise for blood pressure control by DC and Other additional outcomes/goals Tobacco - 30-Day Tobacco Program Goals Tobacco Use: Non-smoker Gave Education Materials For:: Tobacco Triggers, Pulmonary Disease, Risk Factors, Breathing Techniques, Medical Compliance, Pulmonary A&P, Exacerbation Signs & Symptoms and Stress & Relaxation Diabetes Diabetes:: No Core Components - 60 DAYS Hypertension Hypertension Diagnosis:: Hypertension ICD-10 I10 Resting Blood Pressure:: 134/68 [place] [employer] Hypertension Guidelines Outcomes/Goals: Able to verbalize/achieve optimal blood pressure <130/80, Incorporates diet changes & exercise for blood pressure control by DC and Other additional outcomes/goals Tobacco - 60-Day Tobacco Program Goals Tobacco Use: Non-smoker Gave Education Materials For:: Tobacco Triggers, Pulmonary Disease, Risk Factors, Breathing Techniques, Medical Compliance, Pulmonary A&P, Exacerbation Signs & Symptoms and Stress & Relaxation Diabetes Diabetes:: No Core Components - 90 DAYS Hypertension Hypertension Diagnosis:: Hypertension ICD-10 I10 Resting Blood Pressure:: 134/68 [place] [employer] Hypertension Guidelines Outcomes/Goals: Able to verbalize/achieve optimal blood pressure <130/80, Incorporates diet changes & exercise for blood pressure control by DC and Other additional outcomes/goals Tobacco - 90-Day Tobacco Program Goals Tobacco Use: Non-smoker Gave Education Materials For:: Tobacco Triggers, Pulmonary Disease, Risk Factors, Breathing Techniques, Medical Compliance, Pulmonary A&P, Exacerbation Signs & Symptoms and Stress & Relaxation Diabetes Diabetes:: No Core Components - Final Hypertension Hypertension Diagnosis:: Hypertension ICD-10 I10 Resting Blood Pressure:: 134/68 [place] [employer] Hypertension Guidelines Outcomes/Goals: Able to verbalize/achieve optimal blood pressure <130/80, Incorporates diet changes & exercise for blood pressure control by DC and Other additional outcomes/goals Tobacco - Final Tobacco Program Goals Tobacco Use: Non-smoker Diabetes Diabetes:: No Patient Health Questionnaire PHQ-9 Screening Initial Assessment: 1. Little interest or pleasure in doing things: More than half the days 2. Feeling down, depressed, or hopeless: More than half the days 3. Trouble falling or staying asleep, or sleeping too much: Not at all 4. Feeling tired or having little energy: More than half the days 5. Poor appetite or overeating: Not at all 6. Feeling bad about yourself -- or that you are a failure or have let yourself or your family down: More than half the days 7. Trouble concentrating on things, such as reading the newspaper or watching television: Not at all 8. Moving or speaking so slowly that other people could have noticed. Or the opposite - being so fidgety or restless that you have been moving around a lot more than usual: More than half the days 9. Thoughts that you would be better off , or of hurting yourself in some way: Not at all How difficult have these problems made it for you to do your work, take care of things at home, or get along with other people?: Somewhat difficult Total Score: 10 Knowledge Questionaire (BCKQ) Information Information: [employer] COPD Knowledge Questionnaire (BCKQ) This questionnaire is designed to find out what you know about your lung problem. It should be completed without help form anyone else. This usually takes between 10 and 20 minutes. Your answers will help us to find out what information you need to help you to understand and manage your lung condition. [place] which you think is the correct answer. COPD Assessment Test [CAT] Questions Never cough = 0, Cough all the time = 5: 1 No phlegm = 0, Chest full of phlegm = 5: 4 No chest tightness = 0, Chest very tight = 5: 2 No breathless w/exertion = 0, Very breathless w/exertion = 5: 4 No limitations w/activity = 0, Very limited w/activity = 5: 5 Confident leaving home = 0, Not at all confident = 5: 3 Sleep soundly = 0, Don't sleep soundly = 5: 4 Lots of energy = 0, No energy at all = 5: 4 Total CAT score:: 27 Self-Efficacy 6-Item Scale Initial Assessment: We would like to know how confident you are in doing certain activities. Please select your confidence level for: Fatigue Select Number: 5 Physical Discomfort or Pain Select Number: 4 Emotional Distress Select Number: 4 Other Symptoms or Health Problems Select Number: 4 Different Tasks and Activities Select Number: 4 Medication Select Number: 4 Total Score:: 4 Nutrition Survey Nutrition Survey Instructions Scoring Instructions Nutrition Survey Initial: Have you lost >10 lbs over the past 2 months without trying?: No Are you following a special diet at home for diabetes, low fat, or low salt?: Yes Are you interested in meeting with a dietitian for help understanding your diet?: No Do you eat less than 3 meals a day?: No Do you eat fatty meats (fu, sausage, ribs, etc), fried foods, desserts, large amounts of salad dressings, margarine, butter, or cheese most days?: No Do you have food allergies? [Enter types in comment field]: Yes Do you eat in restaurants more than 3 times a week?: No Do you season food with salt, seasoning salt, or garlic salt?: No Do you used canned, boxed, frozen meals, or soups, seasoning packets?: Yes Total Score:: 3
[2024-09-04 11:12] VITALS: BP 134/68; O2SAT 92; BMI 29.5
[2024-09-04 11:13] VITALS: BMI 29.5
== END | disposition home or self-care (01) ==
LOC: PR 09:53
PROVIDERS: PCP Family Medicine
DX: R94.2 Abnormal results of pulmonary function studies (principal); I27.20 Pulmonary hypertension, unspecified; Z99.81 Dependence on supplemental oxygen

== ENCOUNTER 2024-09-24 13:00 | Outpatient (RCR) | payer MEDICARE, SELFPAY ==
[2024-09-04 11:12] VITALS: BMI 29.5
== END 2024-09-24 23:59 ==
LOC: PR 13:00
PROVIDERS: PCP Family Medicine; Referring Provider Family Medicine; Visit Provider Family Medicine
DX: R94.2 Abnormal results of pulmonary function studies (principal); I27.20 Pulmonary hypertension, unspecified; Z99.81 Dependence on supplemental oxygen
CPT/HCPCS: 97150; G0239

== ENCOUNTER 2024-10-24 13:00 | Outpatient (RCR) | payer MEDICARE, SELFPAY ==
[2024-09-04 11:12] VITALS: BMI 29.5
--- NOTE | 2024-09-30 07:43 | PR.ITP_ITS ---
Exercise - Initial Assessment Visit Session Number:: 8 Physician Prescribed Exercise Modalities: SciFit Stepper and SciFit Pro-II Ergometer Current METSs:: 2.3 Target HR:: 91 (91-114) Current RPD:: 2 Maximum Exercise HR:: 115 Resting Blood Pressure: 130/50 Maximum Exercise Blood Pressure: 142/60 Minimum SpO2 with exercise: 88 EKG Type: NSR to ST with occas PVC's Nutrition/Wt Mgmt - Initial Visit Date of Eval: 09/30/24 Session Number:: 8 Weight Management Admit Height:: 5 ft 1 in Admit Weight:: 142 lb Admit BMI:: 26.8 Intervention Will attend diet classes:: Yes Intervention/Plan: Instruct on ideal BMI & set weight loss goal w/patient, Assist pt to ID & incorporate diet changes for weight loss by S9, Refer to Structured Weight Loss program as appropriate, Encourage goal of using 250- 300dcal per session for weight loss and Other additional plan/interventions Plan Nutrition Plan: Yes: Review BMI or WC & identify target wt & strategies for wt control, Yes: Nutrition education class:, Yes: Medication education class [Prednisone]:, Yes: Weight control education class:, Yes: Education re: Need for ongoing weight monitoring, Yes: Food diary: and Yes: Physical activity log: Nutrition/Wt Mgmt - 30-Day Visit Date of Eval: 09/30/24 Session Number:: 8 Weight Management Height: 5 ft 1 in Weight:: 142 lb BMI: 26.8 Weight Goals Progress:: Progressing (Pt will attend nutrition class. Pt encouraged to eat a heart healthy low sodium diet.) Nutrition/Wt Mgmt - 60-Day Visit Session Number:: 8 Weight Management Height: 5 ft 1 in Weight:: 142 lb BMI: 26.8 Nutrition/Wt Mgmt - 90-Day Visit Session Number:: 8 Weight Management Height: 5 ft 1 in Weight:: 142 lb BMI: 26.8 Nutrition/Wt Mgmt - Final Visit Session Number:: 8 Weight Management Height: 5 ft 1 in Weight:: 142 lb BMI: 26.8 Psychosocial - Initial Assess Visit Date of Eval: 09/30/24 Session Number:: 8 Problems/Goals History of Emotional Disorders: None Psychosocial Goals: 1. Patient is free from overwhelming symtoms of depression (or anxiety, 2. Identifies personal stressors & states the strategies for managing, 3. Identifies activities to decrease isolation and/or symptoms of, 4. Improved psychosocial coping skills., 5. Verbalizes coping strategies. and 7. Improved Q.O.L. Psychosocial Test Tool Used:: Pulmonary QOL and PHQ-9 Questionnaire PHQ-9 Score: 10 Referral to Behavioral Health PS - Interventions: Yes: Attend Stress Management Classes Intervention/Plan: See List Interventions/Plan:: Assess stressors,coping strategies & signs of derpression on admission, Instruct/assist pt to develop coping & personal stress Mgt strategies, Refer to Behavioral Health if appropriate, Refer to Physician if appropriate, Instruct patient to recognize signs & symptoms of depression and Instruct patient to recog Psychosocial - 30-Day Visit Date of Eval: 09/30/24 Session Number:: 8 Problems/Goals History of Emotional Disorders: None Psychosocial Goals: 1. Patient is free from overwhelming symtoms of depression (or anxiety, 2. Identifies personal stressors & states the strategies for managing, 3. Identifies activities to decrease isolation and/or symptoms of, 4. Improved psychosocial coping skills., 5. Verbalizes coping strategies. and 7. Improved Q.O.L. Psychosocial Test Tool Used:: Pulmonary QOL and PHQ-9 Questionnaire PHQ-9 Score: 10 Referral to Behavioral Health PS - Interventions: Yes: Attend Stress Management Classes Plan Interventions/Plan:: Assess stressors,coping strategies & signs of derpression on admission, Instruct/assist pt to develop coping & personal stress Mgt strategies, Refer to Behavioral Health if appropriate, Refer to Physician if appropriate, Instruct patient to recognize signs & symptoms of depression and Instruct patient to recog Psychosocial - 60-Day Visit Session Number:: 8 Problems/Goals History of Emotional Disorders: None Psychosocial Goals: 1. Patient is free from overwhelming symtoms of depression (or anxiety, 2. Identifies personal stressors & states the strategies for managing, 3. Identifies activities to decrease isolation and/or symptoms of, 4. Improved psychosocial coping skills., 5. Verbalizes coping strategies. and 7. Improved Q.O.L. Psychosocial Test Tool Used:: Pulmonary QOL and PHQ-9 Questionnaire PHQ-9 Score: 10 Referral to Behavioral Health PS - Interventions: Yes: Attend Stress Management Classes Plan Interventions/Plan:: Assess stressors,coping strategies & signs of derpression on admission, Instruct/assist pt to develop coping & personal stress Mgt strategies, Refer to Behavioral Health if appropriate, Refer to Physician if appropriate, Instruct patient to recognize signs & symptoms of depression and Instruct patient to recog Psychosocial - 90-Day Visit Session Number:: 8 Problems/Goals History of Emotional Disorders: None Psychosocial Goals: 1. Patient is free from overwhelming symtoms of depression (or anxiety, 2. Identifies personal stressors & states the strategies for managing, 3. Identifies activities to decrease isolation and/or symptoms of, 4. Improved psychosocial coping skills., 5. Verbalizes coping strategies. and 7. Improved Q.O.L. Psychosocial Test Tool Used:: Pulmonary QOL and PHQ-9 Questionnaire PHQ-9 Score: 10 Referral to Behavioral Health PS - Interventions: Yes: Attend Stress Management Classes Plan Interventions/Plan:: Assess stressors,coping strategies & signs of derpression on admission, Instruct/assist pt to develop coping & personal stress Mgt strategies, Refer to Behavioral Health if appropriate, Refer to Physician if appropriate, Instruct patient to recognize signs & symptoms of depression and Instruct patient to recog Psychosocial - Final Assess Visit Session Number:: 8 Problems/Goals History of Emotional Disorders: None Psychosocial Goals: 1. Patient is free from overwhelming symtoms of depression (or anxiety, 2. Identifies personal stressors & states the strategies for managing, 3. Identifies activities to decrease isolation and/or symptoms of, 4. Improved psychosocial coping skills., 5. Verbalizes coping strategies. and 7. Improved Q.O.L. Psychosocial Test Tool Used:: Pulmonary QOL and PHQ-9 Questionnaire PHQ-9 Score: 10 Referral to Behavioral Health PS - Interventions: Yes: Attend Stress Management Classes Plan Interventions/Plan:: Assess stressors,coping strategies & signs of derpression on admission, Instruct/assist pt to develop coping & personal stress Mgt strategies, Refer to Behavioral Health if appropriate, Refer to Physician if appropriate, Instruct patient to recognize signs & symptoms of depression and Instruct patient to recog Oxygen & Oxygen Titration Init Visit Date of Eval: 09/30/24 Session Number:: 8 Initial Assessment SpO2:: 88 Oxygen & Oxygen Titration 30D Visit Date of Eval: 09/30/24 Session Number:: 8 Reassessment Reassessment- 30 Days: Demonstrate knowledge of O2 Rx at rest & w/exercise, Using O2 as Rx'd, Has home O2 as Rx'd and Uses port O2 as Rx'd SpO2:: 88 Oxygen & Oxygen Titration 60D Visit Date of Eval: 09/30/24 Session Number:: 8 Reassessment SpO2:: 88 Oxygen & Oxygen Titration 90D Visit Date of Eval: 09/30/24 Session Number:: 8 Reassessment SpO2:: 88 Oxygen & Oxygen Titration HELADIO Visit Date of Eval: 09/30/24 Session Number:: 8 Reassessment SpO2:: 88 Core Components - Initial Visit Date of Eval: 09/30/24 Session Number:: 8 Hypertension Hypertension Diagnosis:: Hypertension ICD-10 I10 BP: 130/50 [place] [employer] Hypertension Guidelines Blood Pressure: 142/60 Outcomes/Goals: Able to verbalize/achieve optimal blood pressure <130/80, Incorporates diet changes & exercise for blood pressure control by DC and Other additional outcomes/goals Tobacco - Initial Assessment Tobacco Program Goals Tobacco Use: Non-smoker Diabetes Will attend diet classes:: Yes Core Components - 30 DAYS Visit Date of Eval: 09/30/24 Session Number:: 8 Hypertension Hypertension Diagnosis:: Hypertension ICD-10 I10 Resting Blood Pressure:: 130/50 [employer] Hypertension Guidelines Peak Exercise Blood Pressure:: 142/60 Change in medication: No Outcomes/Goals: Able to verbalize/achieve optimal blood pressure <130/80, Incorporates diet changes & exercise for blood pressure control by DC and Other additional outcomes/goals Interventions/plan: Instruct on optimal blood pressure, hypertension & medications and Instruct on effects of sodium, alcohol, stress, exercise &hypertension 30 day Reassessments:: Progressing Reassessment Notes & Comments:: Pt's BP's are within AHA normal limits on some days. Will continue to monitor and report to pt's physician if necessary. Will encourage a low sodium heart healthy diet. Tobacco - 30-Day Tobacco Program Goals Tobacco Use: Non-smoker Exacerbation Mgmt & Airway Clearance Reassessment: Demonstrates knowledge of O2 Rx at rest, Demonstrates knowledge of O2 Rx with exercise, Using O2 as prescribed, Has home O2 as prescribed and Uses port O2 as prescribed Bronchial Hygiene Plan: Yes: Pt demonstrates correctly for effective cough, Yes: Pt demo correct for CPT, Yes: Pt demo correct for device, Yes: Pt demo correct for NS nasal spray, Yes: Pt demo correct for sputum management, Yes: Pt demo correct for improved hydration, Yes: Pt demo correct for hand hygiene, Yes: Pt demo correct for evalute sputum, Yes: Pt demo correct for verbalize when to call MD and Yes: Pt demo correct for cleaning of respiratory equipment Medication Medication list reviewed:: Yes Taking medications 100% of the time:: Met (Pt is taking her meds as prescribed.) Medication reassessment: Yes: Pt demonstrates correct technique timing for MDI, Yes: Pt demonstrates correct technique timing for DPI, Yes: Pt demonstrates correct technique timing for NEB and Yes: Pt demonstrates correct technique timing for spacer Core Components - 60 DAYS Visit Session Number:: 8 Hypertension Hypertension Diagnosis:: Hypertension ICD-10 I10 Resting Blood Pressure:: 130/50 [employer] Hypertension Guidelines Peak Exercise Blood Pressure:: 142/60 Change in medication: No Outcomes/Goals: Able to verbalize/achieve optimal blood pressure <130/80, Incorporates diet changes & exercise for blood pressure control by DC and Other additional outcomes/goals Interventions/plan: Instruct on optimal blood pressure, hypertension & medications and Instruct on effects of sodium, alcohol, stress, exercise &hypertension 60 day Reassessments:: Progressing Reassessment Notes & Comments:: Pt's BP's are within AHA normal limits on some days. Will continue to monitor and report to pt's physician if necessary. Will encourage a low sodium heart healthy diet. Tobacco - 60-Day Tobacco Program Goals Tobacco Use: Non-smoker Exacerbation Mgmt & Airway Clearance Reassessment: Demonstrates knowledge of O2 Rx at rest, Demonstrates knowledge of O2 Rx with exercise, Using O2 as prescribed, Has home O2 as prescribed and Uses port O2 as prescribed Bronchial Hygiene Plan: Yes: Pt demonstrates correctly for effective cough, Yes: Pt demo correct for CPT, Yes: Pt demo correct for device, Yes: Pt demo correct for NS nasal spray, Yes: Pt demo correct for sputum management, Yes: Pt demo correct for improved hydration, Yes: Pt demo correct for hand hygiene, Yes: Pt demo correct for evalute sputum, Yes: Pt demo correct for verbalize when to call MD and Yes: Pt demo correct for cleaning of respiratory equipment Medication Taking medications 100% of the time:: Met (Pt is taking her meds as prescribed.) Medication reassessment: Yes: Pt demonstrates correct technique timing for MDI, Yes: Pt demonstrates correct technique timing for DPI, Yes: Pt demonstrates correct technique timing for NEB and Yes: Pt demonstrates correct technique timing for spacer Core Components - 90 DAYS Visit Session Number:: 8 Hypertension Hypertension Diagnosis:: Hypertension ICD-10 I10 Resting Blood Pressure:: 130/50 [place] [employer] Hypertension Guidelines Peak Exercise Blood Pressure:: 142/60 Outcomes/Goals: Able to verbalize/achieve optimal blood pressure <130/80, Incorporates diet changes & exercise for blood pressure control by DC and Other additional outcomes/goals Interventions/plan: Instruct on optimal blood pressure, hypertension & medications and Instruct on effects of sodium, alcohol, stress, exercise &hypertension 90 day Reassessments:: Progressing Reassessment Notes & Comments:: Pt's BP's are within AHA normal limits on some days. Will continue to monitor and report to pt's physician if necessary. Will encourage a low sodium heart healthy diet. Tobacco - 90-Day Tobacco Program Goals Tobacco Use: Non-smoker Exacerbation Mgmt & Airway Clearance Bronchial Hygiene Plan: Yes: Pt demonstrates correctly for effective cough, Yes: Pt demo correct for CPT, Yes: Pt demo correct for device, Yes: Pt demo correct for NS nasal spray, Yes: Pt demo correct for sputum management, Yes: Pt demo correct for improved hydration, Yes: Pt demo correct for hand hygiene, Yes: Pt demo correct for evalute sputum, Yes: Pt demo correct for verbalize when to call MD and Yes: Pt demo correct for cleaning of respiratory equipment Medication Medication reassessment: Yes: Pt demonstrates correct technique timing for MDI, Yes: Pt demonstrates correct technique timing for DPI, Yes: Pt demonstrates correct technique timing for NEB and Yes: Pt demonstrates correct technique timing for spacer Core Components - Final Visit Session Number:: 8 Hypertension Hypertension Diagnosis:: Hypertension ICD-10 I10 Resting Blood Pressure:: 130/50 [place] [employer] Hypertension Guidelines Peak Exercise Blood Pressure:: 142/60 Outcomes/Goals: Able to verbalize/achieve optimal blood pressure <130/80, Incorporates diet changes & exercise for blood pressure control by DC and Other additional outcomes/goals Tobacco - Final Tobacco Program Goals Tobacco Use: Non-smoker Exacerbation Mgmt & Airway Clearance Bronchial Hygiene Plan: Yes: Pt demonstrates correctly for effective cough, Yes: Pt demo correct for CPT, Yes: Pt demo correct for device, Yes: Pt demo correct for NS nasal spray, Yes: Pt demo correct for sputum management, Yes: Pt demo correct for improved hydration, Yes: Pt demo correct for hand hygiene, Yes: Pt demo correct for evalute sputum, Yes: Pt demo correct for verbalize when to call MD and Yes: Pt demo correct for cleaning of respiratory equipment Medication Medication reassessment: Yes: Pt demonstrates correct technique timing for MDI, Yes: Pt demonstrates correct technique timing for DPI, Yes: Pt demonstrates correct technique timing for NEB and Yes: Pt demonstrates correct technique timing for spacer Patient Health Questionnaire PHQ-9 Screening 30-Day Re-eval Assessment: 1. Little interest or pleasure in doing things: More than half the days 2. Feeling down, depressed, or hopeless: More than half the days 3. Trouble falling or staying asleep, or sleeping too much: Not at all 4. Feeling tired or having little energy: More than half the days 5. Poor appetite or overeating: Not at all 6. Feeling bad about yourself -- or that you are a failure or have let yourself or your family down: More than half the days 7. Trouble concentrating on things, such as reading the newspaper or watching television: Not at all 8. Moving or speaking so slowly that other people could have noticed. Or the opposite - being so fidgety or restless that you have been moving around a lot more than usual: More than half the days 9. Thoughts that you would be better off , or of hurting yourself in some way: Not at all How difficult have these problems made it for you to do your work, take care of things at home, or get along with other people?: Somewhat difficult Total Score: 10 Knowledge Questionaire (BCKQ) Information Information: [place] COPD Knowledge Questionnaire (BCKQ) This questionnaire is designed to find out what you know about your lung problem. It should be completed without help form anyone else. This usually takes between 10 and 20 minutes. Your answers will help us to find out what information you need to help you to understand and manage your lung condition. [place] [facility] [place] which you think is the correct answer. Self-Efficacy 6-Item Scale 30-Day Re-eval Assessment: We would like to know how confident you are in doing certain activities. Please select your confidence level for: Fatigue Select Number: 5 Physical Discomfort or Pain Select Number: 4 Emotional Distress Select Number: 4 Other Symptoms or Health Problems Select Number: 4 Different Tasks and Activities Select Number: 4 Medication Select Number: 4 Total Score:: 4 Nutrition Survey Nutrition Survey Instructions Scoring Instructions
[2024-09-30 07:50] VITALS: BP 130/50; O2SAT 88; BMI 26.8
[2024-09-30 08:09] VITALS: BP 130/50; BP 142/60
== END 2024-10-25 23:59 ==
LOC: PR 13:00
PROVIDERS: PCP Family Medicine; Referring Provider Family Medicine; Visit Provider Family Medicine
DX: I27.20 Pulmonary hypertension, unspecified (principal); R94.2 Abnormal results of pulmonary function studies; Z99.81 Dependence on supplemental oxygen
CPT/HCPCS: 97150; G0239

== ENCOUNTER 2024-11-15 02:06 | Emergency (ER) | payer MEDICARE, SELFPAY ==
[2024-10-30 07:38] VITALS: BMI 24.7
[2024-11-15] VITALS (8 sets, daily range): BP systolic 110–120; BP diastolic 45–83; PULSE 77–97; RESP 22–46; TEMP 36.8; O2SAT 51–100; BMI 26.3
--- NOTE | 2024-11-15 02:18 | EKG12_ITS ---
Test Reason : SOB Blood Pressure : */* mmHG Vent. Rate : 91 BPM Atrial Rate : 91 BPM P-R Int : 166 ms QRS Dur : 70 ms QT Int : 360 ms P-R-T Axes : 53 7 12 degrees QTcB Int : 442 ms Normal sinus rhythm Normal ECG Confirmed by Bertin Hutton ([id number]), fashion editor MEEK PORTER ([id number]) on 11/18/2024 11:43:52 AM Referred By: Confirmed By: Bertin Hutton
--- NOTE | 2024-11-15 02:24 | RAD_ITS ---
PROCEDURE: CHEST PA AND LATERAL 11/15/2024 REASON FOR EXAM: DYSPNEA TECHNIQUE: CHEST PA AND LATERAL COMPARISON: CT angiography of the chest on 06/28/2024. FINDINGS: Moderate central pulmonary venous congestion. Moderate interstitial congestion. Bilateral basilar atelectatic pulmonary changes. There is no demonstrated pleural abnormality. Enlarged cardiac silhouette. Normal mediastinum and [place]. Normal visualized pulmonary arteries. Atheromatous plaques of the visualized aortic arch and descending thoracic aorta. Diffuse spondylosis of the visualized thoracic spine. Normal visualized ribs, clavicles. Degenerative joint disease. There is no demonstrated abnormality of the visualized soft tissue structures of the upper abdomen. RAD/Chest PA and Lateral IMPRESSION: Moderate central pulmonary venous congestion. Moderate interstitial congestion. Bilateral basilar atelectatic pulmonary changes. Reading [facility]
--- NOTE | 2024-11-15 02:25 | EX.ED.DYSGE1 ---
HPI History of Present Illness Chief Complaint: Shortness of Breath Informant: patient and EMS Narrative Narrative: Patient is a 68-year-old female with past medical history of hypertension COPD and obstructive sleep apnea. She wears 8 L of nasal cannula oxygen 18/12. 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 She went to pulmonary rehab on November 14 and states that she did well. She states that she was feeling fine at home but that this evening while sitting at rest began having increasing shortness of breath that did not respond to increasing her oxygen or taking at home breathing treatment. She denies any chest pain associated with this. She denies any fevers or chills or known sick contacts. As her symptoms were not improving despite her home treatments she called EMS EMS states when they arrived the patient was showing signs of respiratory distress with tachypnea and accessory muscle use. EMS states the patient told them that her pulse ox on her normal 8 L was reading low at approximately 50. Therefore she was placed on a nonrebreather and brought to the ER for evaluation. [facility] Medical History Acute on chronic respiratory failure with hypoxemia CHRIS (obstructive sleep apnea) Coronary artery disease CHRIS and COPD overlap syndrome Abnormal stress test Restrictive lung disease 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 (chronic) Dyspnea on exertion Obesity Essential (primary) hypertension Pulmonary hypertension Daytime hypersomnia Arthritis Shortness of breath on exertion On home oxygen therapy Pneumonia History of edema Chronic respiratory failure with hypoxia CHF (congestive heart failure) Hypothyroid Home Medications ?Medication ?Instructions ?Recorded ?Last Taken ?Type levothyroxine 50 mcg tablet 50 mcg PO DAILY THYROID 09/21/22 06/28/24 History potassium chloride 20 mEq 20 meq PO BIDCM #30 tabs 09/27/22 06/27/24 Rx tablet,extended release(part/cryst) (Klor-Con M) calcium 333 mg-vit D3 133 2 tab PO DAILY 01/03/23 06/27/24 History unit-magnesium 133 mg-zinc 5 mg tablet (David Mag Zinc Plus D3) chlorpheniramine maleate 4 mg 4 mg PO Q4H PRN allergy symptoms 01/03/23 06/27/24 History tablet (ChlorTabs) chromium picolinate 200 mcg tablet 200 mcg PO DAILY 01/03/23 06/27/24 History echinacea 500 mg capsule 1,000 mg PO DAILY 01/03/23 06/27/24 History garlic 1,000 mg capsule 1,000 mg PO DAILY 01/03/23 06/27/24 History multivitamin (Daily Multi-Vitamin 1 tab PO DAILY 01/03/23 06/27/24 History tablet) turmeric 400 mg capsule 400 mg PO DAILY 01/03/23 06/27/24 History vitamin D3 25 mcg (1,000 unit)-vit 1 tab PO DAILY 01/03/23 06/27/24 History K2 90 mcg disintegrating tablet (D3 Plus K2 Dots) vitamins A and D3 in cod liver oil 1 cap PO DAILY 01/03/23 06/27/24 History 1,250 unit-135 unit capsule (cod liver oil) aspirin 81 mg tablet,delayed 81 mg PO DAILY 02/05/23 06/27/24 History release fluticasone 500 mcg-salmeterol 50 1 inh inhalation BID #3 ea 11/09/23 06/27/24 Rx mcg/dose blistr powdr for inhalation (Wixela Inhub) pravastatin 20 mg tablet 20 mg PO QHS #30 tabs 04/16/24 06/27/24 Rx lisinopril 10 mg tablet 10 mg PO QDAY #90 tabs 06/04/24 06/27/24 Rx cyanocobalamin (vitamin B-12) 1,000 mcg PO DAILY 06/28/24 06/27/24 History 1,000 mcg capsule vitamin E 268 mg (400 unit) capsule 268 mg PO DAILY 06/28/24 06/27/24 History acetaminophen 650 mg 650 mg PO TID PAIN 10/29/24 Unknown History tablet,extended release beet root extract PO DAILY 10/29/24 Unknown History diltiazem HCl 420 mg 420 mg PO QDAY #90 tabs 10/29/24 Unknown Rx tablet,extended release 24 hr furosemide 40 mg tablet (Lasix) 40 mg PO QDAY 10/29/24 Unknown History treprostinil (Tyvaso DPI) 2 ea inhalation 4X/DAY 10/29/24 Unknown History Allergy/AdvReac Type Severity Reaction Status Date / Time Penicillins Allergy Hives Verified 11/15/24 02:07 Family History Father , 53 CVA (cerebral vascular accident) CAD (coronary artery disease) Myocardial infarction Brother Myocardial infarction CAD (coronary artery disease) Brother CAD (coronary artery disease) stent Brother CAD (coronary artery disease) stent Surgical History History of left heart catheterization (~04/16/23) Hx of tonsillectomy History of excision of lesion Hx of left cataract extraction Hx of right cataract extraction History of right hip replacement Social History household members: spouse housing: house Smoking Status: Former smoker how long ago did patient quit smokin plus years ago alcohol intake: current alcohol intake frequency: holidays/special occasions only substance use type: does not use caffeine: Yes Type: carbonated beverages Number of servings: 4 and coffee ROS ROS ED Constitutional Constitutional ED: Denies chills or fever(s) Eyes Eyes: Denies change in vision ENT ENT ED: Denies rhinorrhea or sore throat Cardiovascular Cardiovascular: Denies chest pain Respiratory/Chest Respiratory/Chest: Reports cough and dyspnea Gastrointestinal Gastrointestinal: Denies abdominal pain, diarrhea, nausea or vomiting Genitourinary Genitourinary ED: Denies dysuria Musculoskeletal Musculoskeletal: Denies back pain or myalgias Integumentary Denies rash Neurologic Neurologic: Denies headache(s) Psychiatric Psychiatric: Denies anxiety Hematologic/Lymphatic Hematologic/Lymphatic: Denies easy bleeding or easy bruising Allergic/Immunologic Allergic/Immunologic ED: Denies mouth swelling, tongue swelling or urticaria EXAM Physical Exam Const Vital Signs: 11/15/24 02:07 11/15/24 02:07 11/15/24 02:12 Temperature 98.3 F 98.3 F Temperature Source Oral Oral Pulse Rate 97 91 Respiratory Rate 46 H 40 H Respiratory Effort Short of Breath Respiratory Depth Shallow Respiratory Pattern Tachypnea Blood Pressure 110/58 L 110/58 L Blood Pressure Mean 75 75 Pulse Ox 51 76 Oxygen Delivery Method High Flow High Flow High Flow Oxygen Flow Rate (L/min) 8 8 10 11/15/24 02:30 11/15/24 04:00 11/15/24 05:00 Temperature Temperature Source Pulse Rate 85 77 85 Respiratory Rate 22 H 26 H 27 H Respiratory Effort Respiratory Depth Respiratory Pattern Blood Pressure 117/45 L 120/49 L Blood Pressure Mean 69 72 Pulse Ox 93 94 Oxygen Delivery Method High Flow High Flow Oxygen Flow Rate (L/min) 8 8 11/15/24 06:00 Temperature Temperature Source Pulse Rate 86 Respiratory Rate 27 H Respiratory Effort Respiratory Depth Respiratory Pattern Blood Pressure 120/52 L Blood Pressure Mean 74 Pulse Ox 97 Oxygen Delivery Method High Flow Oxygen Flow Rate (L/min) 8 Positive well nourished and well developed Constitutional Narrative: Patient is in mild to moderate respiratory distress with tachypnea and slight accessory muscle use General Appearance ED: well developed; Negative for pallor HEENT Reports moist mucous membranes HEENT Narrative: No tongue or lip swelling no oral lesions no airway edema or compromise No secondary findings in the posterior pharynx consistent with infection Eyes PERRL and EOMs intact bilaterally General Eye ED: Negative for scleral icterus Neck supple and no JVD Neck Narrative: No nuchal rigidity or meningeal signs Chest Wall palpation of chest normal Chest Narrative: No bony deformity or crepitance noted Resp Resp Narrative: Patient is in mild to moderate respiratory distress with tachypnea and slight accessory muscle use Breath sounds are diminished throughout with faint expiratory wheeze diffusely and faint rhonchi in the bilateral bases Cardio regular rate and regular rhythm Rate: other Other Details: Radial and carotid pulses are equal and symmetric Extremity normal to inspection Extremity Narrative: No asymmetric edema no pitting edema negative Homans' sign bilaterally Neuro oriented x3, CN's II-XII intact bilaterally and no sensory deficits noted Sensorium / Orientation: alert Motor Exam: strength 5/5 throughout Psych mental status grossly normal Skin no rashes or lesions noted General Skin Exam: Negative for jaundice or pallor MDM MDM MDM Narrative Medical decision making narrative: Patient arrived to the ER in mild to moderate respiratory distress with tachypnea and accessory muscle use. Differential diagnosis is for COPD exacerbation versus pneumonia versus acute blood loss anemia versus viral infection such as COVID influenza RSV acute coronary syndrome or CHF exacerbation. Secondary to this an EKG was obtained as well as basic laboratory studies and a chest x-ray. Viral swab was negative and labs revealed no signs of of anemia or clinically significant electrolyte abnormality. Chest x-ray showed vascular congestion and her proBNP is elevated consistent with this. The patient was placed on her normal 8 L and her pulse ox improved to the low to mid 90s. Her work of breathing resolved as well. I discussed with patient that her shortness of breath at home could have been related to her concentrator malfunctioning. She states she did think of this but she had the company out on Sunday to replace the concentrator and therefore concern for mechanical malfunction is low. She does report that she has lots of tubing extending from the concentrator as it is too big and bulky to be moved around. Therefore I feel that as the patient is satting in the mid 90s on her normal 8 L that she reports wearing at home with standard tubing that her symptoms and hypoxia are most likely related to patient getting less oxygen due to the extensive tubing running from her concentrator. At this time as she does not have EKG findings of ischemia or ACS secondary pneumonia acute blood loss anemia and the fact that she is not requiring a higher level of oxygen or invasive therapy such as BiPAP or CPAP I do not feel there is need for admission. Therefore the patient be discharged home and can follow-up with her doctors as an outpatient History & Record Review Discussion w/independent historian: EMS personnel and Patient Lab Data Attestation: I reviewed the patient's lab results. Labs: Laboratory Results - last 24 hr 11/15/24 01:45 WBC 12.2 H RBC 4.42 Hgb 12.0 Hct 39.6 MCV 89.6 MCH 27.1 MCHC 30.3 L RDW Std Deviation 50.8 H RDW Coeff of [place] 15.5 H Plt Count 473 H MPV 9.8 Immature Gran % (Auto) 0.400 Neut % (Auto) 63.9 Lymph % (Auto) 27.0 [place] % (Auto) 5.3 Eos % (Auto) 2.8 Baso % (Auto) 0.6 Absolute Neuts (auto) 7.8 H Absolute Lymphs (auto) 3.28 Nucleated RBC % 0 Sodium 137 Potassium 4.3 Chloride 94 L Carbon Dioxide 20.6 L Anion Gap 23 H BUN 20 H Creatinine 1.25 H Estim Creat Clear Calc 36.68 L Est GFR (MDRD) Non-Af 47 L BUN/Creatinine Ratio 16.3 Glucose 241 H Calcium 10.6 Magnesium 2.1 NT pro BNP II 2999 H Radiography Diagnostic Testing: Clinical Impression(s) from Imaging Studies Chest X-Ray 11/15/24 02:24 IMPRESSION: Moderate central pulmonary venous congestion. Moderate interstitial congestion. Bilateral basilar atelectatic pulmonary changes. Reading Location: [place] [id number] 2 view chest x-ray as interpreted by the emergency medicine physician reveals pulmonary vascular congestion without acute infiltrate or pneumothorax. This is similar to chest x-ray from June of this year Discharge Plan Triage Chief Complaint: Shortness of Breath ED Provider: Rob Cordero Dx/Rx/DC Orders Clinical Impression: CHF (congestive heart failure), Pulmonary hypertension, Essential (primary) hypertension, COPD (chronic obstructive pulmonary disease) Instructions: Pulmonary Hypertension, ED Heart Failure, Congestive (CHF) Prescriptions: No Action aspirin 81 mg tablet,delayed release (DR/EC) 81 mg PO DAILY Tyvaso DPI 16(112)-32(112) -48(28) mcg cartridge with inhaler 2 ea inhalation 4X/DAY Patient Comments: pt has with her. beet root extract PO DAILY diltiazem HCl 420 mg tablet extended release 24 hr 420 mg PO QDAY Qty: 90 3RF levothyroxine 50 mcg tablet 50 mcg PO DAILY potassium chloride [Klor-Con M20] 20 mEq Tablet,Er Particles/Crystals 20 meq PO BIDCM Qty: 30 0RF acetaminophen 650 mg tablet extended release 650 mg PO TID chlorpheniramine maleate [ChlorTabs] 4 mg tablet 4 mg PO Q4H PRN (Reason: allergy symptoms) vit A and D3 in cod liver oil [cod liver oil] 1,250-135 unit capsule 1 cap PO DAILY garlic 1,000 mg capsule 1,000 mg PO DAILY turmeric 400 mg capsule 400 mg PO DAILY multivitamin [Daily Multi-Vitamin] Tablet 1 tab PO DAILY echinacea 500 mg capsule 1,000 mg PO DAILY Rx Instructions: administer with meals chromium picolinate 200 mcg tablet 200 mcg PO DAILY calcium carb-D3-mag ox-zinc ox [David Mag Zinc Plus D3] 333 mg-133 unit -133 mg-5 mg tablet 2 tab PO DAILY D3 Plus K2 Dots 25 mcg (1,000 unit)-90 mcg tablet,disintegrating 1 tab PO DAILY cyanocobalamin (vitamin B-12) 1,000 mcg capsule 1,000 mcg PO DAILY vitamin E 268 mg (400 unit) capsule 268 mg PO DAILY furosemide [Lasix] 40 mg tablet 40 mg PO QDAY fluticasone propion-salmeterol [Wixela Inhub] 500-50 mcg/dose blister with device 1 inh inhalation BID Qty: 3 3RF pravastatin 20 mg tablet 20 mg PO QHS Qty: 30 11RF lisinopril 10 mg tablet 10 mg PO QDAY Qty: 90 3RF Primary Care Provider: Hoda Del Rosario Referrals: Hoda Del Rosario MD [Primary Care Provider] - Activity Restrictions/Additional Instructions: Please reduce the length of the tubing running from your concentrator. In the ER on normal to being on your normal 8 L your pulse ox is in the mid to low 90s and your work of breathing is normal. Your x-ray does show changes consistent with heart failure and therefore continue the Lasix. Follow-up with your doctor to discuss further treatment options and testing and return to the ER should you have any further concerns Print Language: Georgian Disposition Disposition: Home, Self Care
[2024-11-15] MEDS: Ipratropium/Albuterol Sulfate 3 ML AMPUL.NEB INHALATION (02:31)
[2024-11-15] MEDS: MethylPREDNISolone 125 MG/2 ML Vial IV (02:31)
[2024-11-15 02:33] LABS: Absolute Lymphocyte Count 3.28 X10^3/uL (0.83-4.51); Absolute Neutrophil Count 7.8 X10^3/uL (2.0-7.7); Basophil# 0.07 X10^3/uL; Basophil% 0.6 % (0-1); Eosinophil# 0.34 X10^3/uL; Eosinophils% 2.8 % (0-5); Hematocrit 39.6 % (37-47); Lymphocyte # 3.28 X10^3/ul (0.83-4.51); Mean Corp Hgb Conc 30.3 g/dL (32-36); Mean Corpuscular Hgb 27.1 pg (27.0-32.0); Mean Corpuscular Volume 89.6 fL (81-99); Mean Platelet Vol. 9.8 fl (6.2-12.0); Monocyte# 0.65 X10^3/uL; Monocyte% 5.3 % (0-10); NRBC Flagged by Analyzer 0 % (0-5); Neutrophil # 7.78 X10^3/uL (2.7-7.7); Neutrophil % 63.9 % (47-70); Platelet Count 473 K/mm3 (150-450); RBC Distribution Width CV 15.5 % (11.6-14.6); RBC Distribution Width SD 50.8 fl (35.1-43.9); Red Blood Count 4.42 M/mm3 (4.2-5.4); White Blood Count 12.2 K/mm3 (4.4-11.0)
--- OUTSIDE RECORDS SUMMARY | 2024-11-15 02:42 | XMS RPT_ITS | CCD ---
Author Organization [facility] Care Team Providers Care Commercial Relief Driver Name Role Phone Dr. Hoda Del Rosario Primary Care Provider [phone] Dr. Heri Hall Emergency Provider Dr. Em Diamond Admit Provider Dr. Em Diamond Attending Provider Dr. Em Diamond Other Provider Dr. Kanika Rebolledo Attending Provider Dr. Silvestre Suero Attending Provider Dr. Silvestre Suero Other Provider Dr. Kory Woo Attending Provider Unavailable Dr. Kory Woo Other Provider Unavailable Dr. Kamari Shi Other Provider Dr. Kamari Shi Attending Provider Dr. Kory Woo Referring Provider Unavailable Dr. Hoda Del Rosario Referring Provider [phone] Lobo Rangel Attending Provider Dr. Amol Jones Attending Provider [phone] Dr. Lobo Rangel Referring Provider Dr. Lobo Rangel Other Provider Mamadou CARROT BUNCHER, AZFAR Pastrana Attending Provider Dr. Amol Jones Other Provider Dr. Hoda Del Rosario Primary Care Provider [phone] Dr. Heri Hall Emergency Provider Dr. Em Diamond Admit Provider Dr. Em Diamond Other Provider Dr. Silvestre Suero Attending Provider Dr. Silvestre Suero Other Provider Dr. Hoda Del Rosario Primary Care Provider Dr. Kamari Shi Attending Provider WILVER Sandoval Attending Provider Unavail tahir Whealtey, Dr. Lopez Attending Provider Rusty, Dr. Lopez Referring Provider Rusty, Dr. Lopez Other Provider Dr. Hoda Del Rosario Primary Care Provider Dr. Lobo Rangel Referring Provider Dr. Lobo Rangel Other Provider Dr. Kamari Shi Attending Provider Dr. Hoda Del Rosario Referring Provider Mamadou GAMEZ, ZAFAR Pastrana Attending Provider Dr. Amol Jones Attending Provider Dr. Amol Jones Other Provider WILVER Sandoval Attending Provider Unavail tahir Wheatley, Dr. Lopez Attending Provider Rusty, Dr. Lopez Referring Provider Rusty, Dr. Lopez Other Provider Dr. Hoda Del Rosario Primary Care Provider Dr. Hoda Del Rosario Referring Provider Dr. Kelvin Bennett Attending Provider Dr. Hoda Del Rosario Primary Care Provider Dr. Hoda Del Rosario Referring Provider Dr. John Wheatley Attending Provider Donald, Dr. Warren Referring Provider Dr. Kelvin Bennett Other Provider Carin VICK, Hoda Hendricks Primary Care Provider Heri Tabor MD Unavailable Carin VICK, Hoda Hendricks Primary Care Provider Amol Godwin MD Unavailable Carin VICK, Dr. Drummond Primary Care Provider Carin VICK, Dr. Drummond Attending Provider Carin VICK, Dr. Drummond Referring Provider Rusty VICK, Dr. Lopez Attending Provider Dr. Eddie Putnam DO Emergency Provider Vasiliy ALVARADO, Dr. Neal Admit Provider Dr. Ángel Amanda DO Other Provider Denice VICK, Dr. Zamarripa Other Provider Padmini VICK, Dr. Mckeon Other Provider Donald VICK, Dr. Warren Other Provider Jose Guadalupe ALVARADO, Dr. Benites Other Provider Lio VICK, Dr. Kory Zhang Other Provider Kali VICK, Dr. Allen Other Provider [phone] Lena VICK, Dr. Ramirez Other Provider Anny VICK, Dr. Mares Other Provider [phone] Grabiel VICK, Dr. Beal Other Provider Derick VICK, Dr. Mccoy Other Provider Osmin VICK, Dr. Rivas Other Provider Jeanna VICK, Dr. Pandey Other Provider Slade VICK, Dr. Duggan Other Provider Unavailbenny Mason MD, Dr. Nolasco Other Provider [phone] Raheem VICK, Dr. Magallanes Other Provider Lisa VICK, Dr. Jean-Baptiste Other Provider Delfino VICK, Dr. Silverman Other Provider Janelle ALVARADO, Dr. Schmidt Other Provider Alexia VICK, Dr. Levin Other Provider [phone] Deshawn Jennings MD, Dr. Mckenna Other Provider Tomy ALVARADO, Dr. Davis Other Provider Chidi VICK, Dr. Austin Other Provider Trevor VICK, Dr. Sloan Other Provider [phone] Sally VICK, Dr. Mamta Antonio Attending Provider Pio ALVARADO, Dr. Rivers Other Provider Dr. Silvestre Suero DO Attending Provider Sally VICK, Dr. Mamta Antonio Other Provider Dr. Kamari Shi DO Attending Provider Sally VICK, Dr. Mamta Antonio Referring Provider Dr. Hoda Del Rosario MD Primary Care Provider Dr. Hoda Del Rosario MD Attending Provider Dr. Hoda Del Rosario MD Referring Provider Dr. Eddie Putnam DO Emergency Provider Vasiliy ALVARADO, Dr. Neal Admit Provider Dr. Ángel Amanda DO Other Provider Denice VICK, Dr. Zamarripa Other Provider Padmini VICK, Dr. Mckeon Other Provider Donald VICK, Dr. Warren Other Provider Jose Guadalupe ALVARADO, Dr. Benites Other Provider Lio VICK, Dr. Kory Zhang Other Provider [phone] Kali VICK, Dr. Allen Other Provider Lena VICK, Dr. Ramirez Other Provider [phone] Anny VICK, Dr. Mares Other Provider [phone] Grabiel VICK, Dr. Beal Other Provider Derick VICK, Dr. Mccoy Other Provider Osmin VICK, Dr. Rivas Other Provider Jeanna VICK, Dr. Pandey Other Provider Slade VICK, Dr. Duggan Other Provider Unavailabl acosta Mason MD, Dr. Nolasco Other Provider [phone] Raheem VICK, Dr. Magallanes Other Provider Lisa VICK, Dr. Jean-Baptiste Other Provider [phone] Delfino VICK, Dr. Silverman Other Provider Janelle ALVARADO, Dr. Schmidt Other Provider [phone] Alexia VICK, Dr. Levin Other Provider Dick VICK, Dr. Mckenna Other Provider [phone] Tomy ALVARADO, Dr. Davis Other Provider Chidi VICK, Dr. Austin Other Provider Trevor VICK, Dr. Sloan Other Provider Sally VICK, Dr. Mamta Antonio Attending Provider Dr. Silvestre Suero DO Other Provider Pio ALVARADO, Dr. Rivers Attending Provider [phone] Sally VICK, Dr. Mamta Antonio Other Provider Jose Guadalupe ALVARADO, Dr. Benites Attending Provider Sally VICK, Dr. Mamta Antonio Referring Provider [facility] Doctor, Out of Attending Provider Unavailab le Town Doctor, Out of Referring Provider Unavailab le FREDDIE GODWINONY R Referring Unavailable MIEDEL, HODA E Primary Care Unavailable HERI TABOR Attending Unavailable MIEDEL, HODA E Primary Care Unavailable TAE, BATHMAPRIYA Attending Unavai lable MIEDEL, HODA E Primary Care Unavailable TAE, BATHMAPRIYA Referring Unavai lable MIEDEL, HODA E Primary Care Unavailable TAE, BATHMAPRIYA Attending Unavai lable MIEDEL, HODA E Primary Care Unavailable CUCCIFREDDIEAMOL R Attending Unavailable MIEDEL, HODA E Primary Care Unavailable CUCCI, AMOL R Referring Unavailable MIEDEL, HODA E Primary Care Unavailable SEABOLD, JASON Attending Unavailable CUCCATE, AMOL R Referring Unavailable MIEDEL, HODA E Primary Care Unavailable SEABOLD, JASON Referring Unavailable MIEDEL, HODA E Primary Care Unavailable Carin VICK, Dr. Drummond Primary Care Provider Dr. Hoda Del Rosario MD Attending Provider Dr. Hoda Del Rosario MD Referring Provider Sally VICK, Dr. Mamta Antonio Other Provider [phone] Rusty VICK, Dr. Lopez Attending Provider FREDDIE GODWINONY R Attending Unavailable MIEDEL, HODA E Primary Care Unavailable MIEDEL, HODA E Primary Care Unavailable BASSEM CASE Attending Unavailable MIEDEL, HODA E Primary Care Unavailable SEABOLD, JASON Referring Unavailable SEABOLD, JASON Referring Unavailable MIEDEL, HODA E Primary Care Unavailable CUCCI, AMOL R Referring Unavailable MIEDEL, HODA E Primary Care Unavailable BASSEM CASE Attending Unavailable CUCCI, AMOL R Referring Unavailable MIEDEL, HODA E Primary Care Unavailable CUCCI, AMOL R Referring Unavailable MIEDEL, HODA E Primary Care Unavailable CUCCI, AMOL R Referring Unavailable MIEDEL, HODA E Primary Care Unavailable CUCCI, AMOL R Referring Unavailable MIEDEL, HODA E Primary Care Unavailable MILO, BASSEM Attending Unavailable BASSEM CASE Attending Unavailable MIEDEL, HODA E Primary Care Unavailable AMOL GODWIN R Referring Unavailable MIEDEL, HODA E Primary Care Unavailable SUSY CASEA Attending Unavailable Mamta Zavalaa Attending Unavailable Ángel Amanda Admitting Unavailable Ángel Amanda Consulting Unavailable Miedel, Hoda Primary Care Unavailable Dallin Galdamez Consulting Unavailable Mike Washington Consulting Unavailable Kelvin Bennett Consulting Unavailable Kamari Shi Consulting Unavailable Kory Vaca Consulting Unavailable Alejandro Bass Consulting Unavailable Jmaes Paredes Consulting Unavailable Suzan Mccormick Consulting UnavailEmigdio Thornton Consulting Unavailable Darius Sepulveda Consulting Unavailable Rob Solorio Consulting Unavailable Katherin Meeks Consulting Unavailable Urban June Consulting Unavailable Constance Mason Consulting Unavailable Elpidio Maciel Consulting Unavailable Estiven Gonzalez Consulting Unavailable Herrera Saleh Consulting Unavailable Brayan Luis Consulting Unavailable Poonam Hale Consulting Unavailable Bala Jennings Consulting Unavailable Ryan uHitron Consulting Unavailable Norman Murillo Consulting Unavailable Luther Murray Consulting Unavailable Silvestre Suero Consulting Unavailable Kleveram, Mamta Marisela Consulting Unavailable Kleveram, Mamta Marisela Referring Unavailable Kamari Shi Attending Unavailable [facility] Referring Unavailable Nvedel, Hoda Primary Care Unavailable Rusty, John Attending Unavailable Nvedel, Hoda Primary Care Unavailable Town Doctor, Out of Referring Unavailable Town Doctor, Out of Attending Unavailable Miedel, Hoda Attending Unavailable Nvedel, Hoda Primary Care Unavailable Miedel, Hoda Referring Unavailable Miedel, Hoda Attending Unavailable Nvedel, Hoda Primary Care Unavailable Miedel, Hoda Referring Unavailable Miedel, Hoda Primary Care Unavailable Rusty, John Referring Unavailable Rusty, John Attending Unavailable Nvedel, Hoda Primary Care Unavailable Miedel, Hoda Referring Unavailable Rusty, John Attending Unavailable Miedel, Hoda Referring Unavailable Miedel, Hoda Primary Care Unavailable Rusty, John Attending Unavailable Miedel, Hoda Attending Unavailable Miedel, Hoda Primary Care Unavailable Miedel, Hoda Referring Unavailable Miedel, Hoda Attending Unavailable Miedel, Hoda Primary Care Unavailable Miedel, Hoda Referring Unavailable Miedel, Hoda Attending Unavailable Miedel, Hoda Referring Unavailable Miedel, Hoda Primary Care Unavailable Miedel, Hoda Attending Unavailable Miedel, Hoda Primary Care Unavailable Miedel, Hoda Primary Care Unavailable Mamta Zavala Attending Unavailable Ángel Amanda Admitting Unavailable Ángel Amanda Consulting Unavailable Dallin Galdamez Consulting Unavailable Mike Washington Consulting Unavailable Kelvin Bennett Consulting Unavailable Kamari Shi Consulting Unavailable Kory Vaca Consulting Unavailable Alejandro Bass Consulting Unavailable James Paredes Consulting Unavailable Suzan Mccormick Consulting UnavailEmigdio Thornton Consulting Unavailable Darius Sepulveda Consulting Unavailable Rob Solorio Consulting Unavailable Katherin Meeks Consulting Unavailable Urban June Consulting Unavailable Constance Mason Consulting Unavailable Elpidio Maciel Consulting Unavailable Estiven Gonzalez Consulting Unavailable Herrera Saleh Consulting Unavailable Brayan Luis Consulting Unavailable Poonam Hale Consulting Unavailable aBla Jennings Consulting Unavailable Ryan Huitron Consulting Unavailable Norman Murillo Consulting Unavailable Luther Murray Consulting Unavailable Silvestre Suero Consulting Unavailable Ángel Amanda Attending Unavailable Silvestre Suero Attending Unavailable Allergies Allergy Classification Reported Allergen(s) Allergy Type Date of Onset Reaction(s) Facility Penicillins (antibiotic) (3 sources) Penicillins Drug Allergy 3 [facility] Work Phone: (20 sources) Penicillins; Translations: [PENICILLINS] Allergy to substance 3 [facility] (20 sources) Penicillins Drug Allergy 3 [facility] Work Phone: (20 sources) Propoxyphene N-Acetaminophen; Translations: [PROPOXYPHENE N-ACETAMINOPHEN] Propensity to adverse reactions to drug 8 [facility] Work Phone: (7 sources) Penicillins Drug Allergy 3 [facility] Work Phone: (1 source) Penicillins Drug allergy (disorder) [facility] Medications Current Medications Medication Drug Class(es) Dates Sig (Normalized) Sig (Original) 8 hr acetaminophen 650 mg extended release oral tablet (20 sources) Start: 10-29-2024 take 1 tablet by mouth three times daily Acetaminophen 650 mg tablet extended release Active 650 mg PO THREE TIMES A DAY October 29, 2024 1:50pm Start: 09-21-2022 End: 10-29-2024 take 1 tablet by mouth every twelve hours Acetaminophen 650 mg Tablet Extended Release Discontinued 650 mg PO Q12H September 21, 2022 12:00am October 29, 2024 1:53pm take 1 tablet by christiano th every eight hours as needed acetaminophen (TYLENOL ARTHRITIS PAIN) 650 mg CR tablet Take 1 tablet by mouth every 8 hours as needed for pain. Active acetaminophen 325 mg / chlorpheniramine maleate 2 mg / phenylephrine hydrochloride 5 mg oral tablet (20 sources) Histamine-1 Receptor Antagonist, alpha-1 Adrenergic Agonist Start: 08-23-2011 [id number] (ALLERGY SINUS PE) 2-5-325 mg ORAL Tab Take by mouth as needed. 0 08/23/2011 Active [id number] 200 actuat albuterol 0.09 mg/actuat metered dose inhaler (20 sources) beta2-Adrener gic Agonist Start: 06-03-2024 take 2 puff(s) by inhalation every six hours as needed for wheezing albuterol HFA (PROVENTIL HFA, VENTOLIN HFA) 90 mcg/actuation inhaler Inhale 2 Puffs as instructed every 6 hours as needed for wheezing/shortness of breath. 18 g 5 06/13/2024 9:47 AM EST 06/03/2024 Active Start: 02-25-2024 End: 06-03-2024 take 2 puff(s) by inhalation every six hours as needed for wheezing albuterol HFA (PROVENTIL HFA, VENTOLIN HFA) 90 mcg/actuation inhaler Inhale 2 Puffs as instructed every 6 hours as needed for wheezing/shortness of breath. 1 Each 5 06/03/2024 Active aspirin 81 mg delayed release oral tablet (20 sources) Platelet Aggregation Inhibitor, Nonsteroidal Anti-inflammatory Drug Start: 09-21-2022 take 325 mg by mouth once daily Aspirin Active 325 MG PO DAILY September 21, 2022 12:00am Start: 10-06-2008 aspirin(ADULT LOW DOSE ASPIRIN 81 MG TAB, DELAYED RELEASE) Take one(1) tablet daily. 0 10/06/2008 Active beet root extract (1 source) Start: 10-29-2024 beet root extr act Active PO DAILY October 29, 2024 12:00am calcium carb-D3-mag ox-zinc ox (NISH MAG ZINC PLUS D3) 333 mg-133 unit -133 mg-5 mg tab (20 sources) take 1 tablet by mouth once daily calcium carb-D3-mag ox-zinc ox (NISH MAG ZINC PLUS D3) 333 mg-133 unit -133 mg-5 mg tab Take 1 tablet by mouth once daily. Active take 1 tablet by mouth once liz y calcium carb-D3-mag ox-zinc ox (NISH MAG ZINC PLUS D3) 333 mg-133 unit -133 mg-5 mg tab Take 1 tablet by mouth once daily. 0 Active take 1 tablet by mouth once liz y calcium carb-D3-mag ox-zinc ox (NISH MAG ZINC PLUS D3) 333 mg-133 unit -133 mg-5 mg tab Take 1 tablet by mouth once daily. 0 Suspended Calcium Carb-D3-Mag Ox-Zinc Ox (Nish Mag Zinc Plus D3) 333 mg-133 unit -133 mg-5 mg tablet (4 sources) Start: 01-03-2023 Calcium Carb-D 3-Mag Ox-Zinc Ox (Nish Mag Zinc Plus D3) 333 mg-133 unit -133 mg-5 mg tablet Active 2 {tbl} PO DAILY January 03, 2023 12:00am Start: 01-03-2023 Calcium Carb-D 3-Mag Ox-Zinc Ox (Nish Mag Zinc Plus D3) 333 mg- 133 unit -133 mg-5 mg tablet Active 2 {tbl} PO DAILY January 02, 2023 11:00pm Calcium Carb-D3-Mag Ox-Zinc Ox (11 sources) Vitamin D Start: 01-03-2023 take 2 tablets by mouth once daily Calcium Carb-D3-Mag Ox-Zinc Ox (Nish Mag Zinc Plus D3) 333 mg-133 unit -133 mg-5 mg tablet Active 2 TABLET PO DAILY January 02, 2023 11:00pm Start: 01-03-2023 take 2 tablets by mo ut once daily Calcium Carb-D3-Mag Ox-Zinc Ox (Nish Mag Zinc Plus D3) 333 mg-133 unit -133 mg-5 mg tablet Active 2 TABLET PO DAILY January 03, 2023 12:00am chlorpheniramine maleate 4 mg oral tablet (15 sources) Histamine-1 Receptor Antagonist Start: 01-03-2023 take 1 tablet by mouth every four hours as needed Chlorpheniramine Maleate (Chlortabs) 4 mg tablet Active 4 mg PO Q4H as needed for allergy symptoms January 03, 2023 12:00am cholecalciferol 0.05 mg oral capsule (20 sources) Vitamin D Start: 08-25-2013 take 1 tablet by mouth once daily Cholecalciferol, Vitamin D3, 2,000 unit cap Indications: At risk for osteoporosis Take 1 tablet by mouth once daily. 0 08/25/2013 Active cholecalciferol 135 unt / vitamin a 0.375 mg oral capsule (20 sources) Vitamin A, Vitamin D Start: 01-03-2023 vit A and D3 in cod liver oil 1,250-135 unit cap Take by mouth. 0 01/03/2023 Suspended Start: 01-03-2023 take 1 capsule by [facility] once daily vit A and D3 in cod liver oil 1,250-135 unit cap Take 1 capsule by mouth once daily. 01/03/2023 Active cholecalciferol 1000 unt / vitamin k2 0.09 mg disintegrating oral tablet (15 sources) Vitamin D Start: 01-03-2023 take 1 tablet by mouth once daily Vitamin D3-Vitamin K2 (D3 Plus K2 Dots) 25 mcg (1,000 unit)-90 mcg tablet,disintegrating Active 1 {tbl} PO DAILY January 03, 2023 12:00am chondroitin sulfates 200 mg / glucosamine hydrochloride 250 mg oral tablet (20 sources) take 2 tablets by mouth once daily Glucosamine-Chondroitin (OSTEO BI-FLEX) 250-200 mg tab Take 2 tablets by mouth once daily. Active chromium picolinate 0.2 mg oral tablet (20 sources) Start: 01-03-2023 take 1 tablet by mouth once daily Chromium Picolinate 200 mcg tablet Active 200 ug PO DAILY January 03, 2023 12:00am Cyanocobalamin-Liver Extract (11 sources) Start: 01-03-2023 Cyanocobalamin-Liver Extract Active 1 TABLET PO MOWEJanuary 02, 2023 11:00pm Start: 01-03-2023 Cyanocobalamin -Liver Extract Active 1 TABLET PO MOWEJanuary 03, 2023 12:00am 24 hr dilTIAZem hydrochloride 360 mg extended release oral capsule (20 sources) Calcium Channel Jordy Start: 04-30-2024 take 1 capsule by mouth once daily Diltiazem Hcl 360 mg capsule,extended release 24hr Active 360 mg PO daily April 30, 2024 1:00am Start: 05-09-2023 End: 04-30-2024 take 1 capsule by mouth once daily Diltiazem Hcl 240 mg capsule,extended release 24hr Discontinued 240 mg PO DAILY May 09, 2023 1:00am April 30, 2024 3:50pm Start: 02-05-2023 End: 05-09-2023 take 1 capsule by mouth once daily Diltiazem Hcl 120 mg capsule,extended release 24hr Discontinued 120 mg PO DAILY February 05, 2023 12:00am May 09, 2023 3:24pm take 1 tablet by christiano th once daily dilTIAZem LA (CARDIZEM LA) 240 mg 24 hr tablet Take 360 mg by mouth once daily. Active take 1 tablet by christiano th once daily dilTIAZem LA (CARDIZEM LA) 240 mg 24 hr tablet Take 240 mg by mouth once daily. Active Echinacea 500 mg cap (20 sources) Start: 01-03-2023 take 1 capsule by mouth twice daily Echinacea 500 mg cap Take 1 capsule by mouth two times a day. 01/03/2023 Active Start: 01-03-2023 take 1 capsule by mo uth twice daily Echinacea 500 mg cap Take 1 capsule by mouth two times a day. 0 01/03/2023 Active Start: 01-03-2023 take 1 capsule by mo uth twice daily Echinacea 500 mg cap Take 1 capsule by mouth two times a day. 0 01/03/2023 Suspended Start: 01-03-2023 Echinacea 500 mg cap Take by mouth. 0 01/03/2023 Suspended Echinacea (15 sources) Start: 01-03-2023 take 1 capsule by mo uth once daily at mealtime Echinacea 500 mg capsule Active 1000 mg PO DAILY January 03, 2023 12:00am administer with meals Start: 01-03-2023 take 1 capsule by mo uth once daily at mealtime Echinacea 500 mg capsule Active 1000 mg PO DAILY January 02, 2023 11:00pm administer with meals Start: 01-03-2023 take 1000 mg by mout h once daily at mealtime Echinacea Active 1000 MG PO DAILY January 02, 2023 11:00pm administer with meals Start: 01-03-2023 take 1000 mg by mout h once daily at mealtime Echinacea Active 1000 MG PO DAILY January 03, 2023 12:00am administer with meals fluticasone / salmeterol (20 sources) Corticosteroid, beta2-Adrenergic Agonist Start: 06-06-2024 take 1 puff(s) by mouth twice daily fluticasone-salmeterol (ADVAIR DISKUS) 500-50 mcg/dose dsdv Inhale 1 Puff as instructed two times a day. Rinse and gargle mouth with water after each use. 180 Each 3 09/19/2024 7:38 AM EDT 06/06/2024 Active Start: 06-06-2024 take 1 puff(s) by mo uth twice daily fluticasone-salmeterol (ADVAIR DISKUS) 500-50 mcg/dose dsdv Inhale 1 Puff as instructed two times a day. Rinse and gargle mouth with water after each use. 180 Each 3 06/13/2024 9:47 AM EST 06/06/2024 Active Start: 06-06-2024 take 1 puff(s) by mo uth twice daily fluticasone-salmeterol (ADVAIR DISKUS) 500-50 mcg/dose dsdv Inhale 1 Puff as instructed two times a day. Rinse and gargle mouth with water after each use. 180 Each 3 06/06/2024 Active Start: 06-03-2024 End: 06-05-2024 take 1 puff(s) by mouth twice daily fluticasone-salmeterol (ADVAIR DISKUS) 500-50 mcg/dose dsdv Inhale 1 Puff as instructed two times a day. Rinse and gargle mouth with water after each use. 60 Each 5 06/03/2024 06/05/2024 Discontinued Start: 06-03-2024 take 1 puff(s) by mo uth twice daily fluticasone-salmeterol (ADVAIR DISKUS) 500-50 mcg/dose dsdv Inhale 1 Puff as instructed two times a day. Rinse and gargle mouth with water after each use. 60 Each 5 06/03/2024 Active Start: 02-25-2024 End: 06-03-2024 take 1 puff(s) by mouth twice daily fluticasone-salmeterol (ADVAIR DISKUS) 500-50 mcg/dose dsdv Indications: Chronic obstructive pulmonary disease, unspecified COPD type (HCC) Inhale 1 Puff as instructed two times a day. Rinse and gargle mouth with water after each use. 60 Each 02/25/2024 06/03/2024 Discontinued Start: 02-25-2024 take 1 puff(s) by mo uth twice daily fluticasone-salmeterol (ADVAIR DISKUS) 500-50 mcg/dose dsdv Indications: Chronic obstructive pulmonary disease, unspecified COPD type (HCC) Inhale 1 Puff as instructed two times a day. Rinse and gargle mouth with water after each use. 60 Each 02/25/2024 Active Start: 11-09-2023 Fluticasone Pr opion-Salmeterol (Wixela Inhub) 500-50 mcg/dose blister with device Active 1 NMA INHALATION TWICE A DAY 3 November 09, 2023 8:21am Start: 11-09-2023 Fluticasone Pr opion-Salmeterol (Wixela Inhub) 500-50 mcg/dose blister with device Active 1 NMA INHALATION TWICE A DAY November 09, 2023 7:21am Start: 08-08-2023 End: 11-09-2023 Fluticasone Propion-Salmeter ol (Wixela Inhub) 500-50 mcg/dose blister with device Discontinued 1 NMA INHALATION TWICE A DAY August 08, 2023 12:00am November 09, 2023 8:21am Start: 08-08-2023 End: 11-09-2023 Fluticasone Propion-Salmeter ol (Wixela Inhub) 500-50 mcg/dose blister with device Discontinued 1 NMA INHALATION TWICE A DAY 60 August 07, 2023 11:00pm November 09, 2023 7:21am End: 02-25-2024 take 1 puff(s) by inhalation twice daily fluticasone-salmeterol (ADVAIR) 500-50 mcg/dose dsdv Inhale 1 Puff as instructed two times a day. 02/25/2024 Discontinued take 1 puff(s) by in halation twice daily fluticasone-salmeterol (ADVAIR) 500-50 mcg/dose dsdv Inhale 1 Puff as instructed two times a day. Active take 1 puff(s) by in halation twice daily fluticasone-salmeterol (ADVAIR) 500-50 mcg/dose dsdv Inhale 1 Puff as instructed two times a day. 0 Active take 1 puff(s) by in halation twice daily fluticasone-salmeterol (ADVAIR) 500-50 mcg/dose dsdv Inhale 1 Puff as instructed two times a day. 0 Suspended furosemide 40 mg oral tablet (20 sources) Loop Diuretic Start: 09-27-2023 take 1 tablet by mouth once daily Furosemide (Lasix) 40 mg tablet Active 40 mg PO daily October 29, 2024 1:51pm Start: 09-27-2023 take 1 tablet by christiano every twelve hours furosemide (LASIX) 40 mg tablet Take 1 tablet by mouth every 12 hours. Pt has been taking once daily 0 09/27/2023 Suspended Start: 09-27-2022 End: 10-29-2024 take 1 tablet by mouth twice daily Furosemide (Lasix) 40 mg tablet Discontinued 40 mg PO TWICE A DAY June 28, 2024 1:00am October 29, 2024 1:53pm Garlic (20 sources) Non-Standardized Food Allergenic Extract Start: 01-03-2023 take 1 capsule by mouth once daily Garlic 1,000 mg capsule Active 1000 mg PO DAILY January 03, 2023 12:00am Start: 01-03-2023 take 1 capsule by mo [facility] once daily Garlic 1,000 mg capsule Active 1000 mg PO DAILY January 02, 2023 11:00pm Start: 01-03-2023 take 1000 mg by mouth once abhijit ly Garlic Active 1000 MG PO DAILY January 02, 2023 11:00pm Start: 01-03-2023 take 1000 mg by mouth once abhijit ly Garlic Active 1000 MG PO DAILY January 03, 2023 12:00am Start: 09-28-2009 GARLIC 1,000 M G CAP Take one tablet daily. 0 09/28/2009 Active Start: 09-28-2009 GARLIC 1,000 M G CAP Take one tablet daily. 0 09/28/2009 Suspended levothyroxine sodium 0.05 mg oral tablet (20 sources) l-Thyroxine Start: 09-21-2022 take 1 tablet by mouth once daily before breakfast levothyroxine (SYNTHROID) 50 mcg tablet Take 1 tablet by mouth daily before breakfast. 09/21/2022 Active Multivitamin (Daily Multi-Vitamin) tablet (15 sources) Start: 01-03-2023 Multivitamin ( Daily Multi-Vitamin) tablet Active 1 {tbl} PO DAILY January 03, 2023 12:00am Start: 01-03-2023 Multivitamin ( Daily Multi-Vitamin) tablet Active 1 {tbl} PO DAILY January 02, 2023 11:00pm Start: 01-03-2023 take 1 tablet by christiano th once daily Multivitamin (Daily Multi-Vitamin) tablet Active 1 TABLET PO DAILY January 02, 2023 11:00pm Start: 01-03-2023 take 1 tablet by christiano th once daily Multivitamin (Daily Multi-Vitamin) tablet Active 1 TABLET PO DAILY January 03, 2023 12:00am multivitamins(DAILY MULTIVIT LARIOS TAB) (20 sources) Start: 10-06-2008 multivitamins( DAILY MULTIVITAMIN TAB) Take one(1) tablet daily. 0 0 10/06/2008 Active Start: 10-06-2008 multivitamins( DAILY MULTIVITAMIN TAB) Take one(1) tablet daily. 0 0 10/06/2008 Suspended OXYGEN, HOME THERAPY, (20 sources) Start: 10-05-2023 OXYGEN, HOME T HERAPY, Inhale 6-10 L/min as instructed continuous. 10/05/2023 Active Start: 10-05-2023 OXYGEN, HOME T HERAPY, Inhale 6-10 L/min as instructed continuous. 0 10/05/2023 Active microencapsulated potassium chloride 20 meq extended release oral tablet (20 sources) Start: 09-27-2022 Potassium Chlo ride (Klor-Con M20) 20 mEq Tablet,Er Particles/Crystals Active 20 meq PO TWICE DAILY WITH MEALS September 27, 2022 12:00am take 1 tablet by mouth once liz y potassium chloride ER (KLOR-CON) 20 mEq tablet Take 1 tablet by mouth once daily. Active pravastatin sodium 20 mg oral tablet (20 sources) HMG-CoA Reductase Inhibitor Start: 04-16-2023 End: 04-16-2024 take 1 tablet by mouth once daily pravastatin (PRAVACHOL) 20 mg tablet Take 1 tablet by mouth once daily. 04/16/2023 Active RED BEET ROOT-SOUR CANNON EXT ORAL (20 sources) RED BEET ROOT-SOUR CANNON EXT ORAL Take by mouth. Active sodium chloride 0.111 meq/ml nasal spray (6 sources) Start: 09-26-2024 sodium chloride (AYR SALINE) 0.65 % nasal spray Use 1 spray in the nose as needed. 30 mL 4 09/26/2024 Active Treprostinil (20 sources) Prostacycline Vasodilator Start: 09-18-2024 take 1 puff(s) by inhalation four times daily TYVASO DPI 64 mcg dry powder inhaler Inhale 1 puff as instructed four times daily. 112 each 11 09/18/2024 Active Start: 03-24-2024 TYVASO DPI 64 mcg dry powder inhaler Inhale 64 mcg as instructed four times daily. 03/24/2024 Active Treprostinil (Tyvaso Dpi) 16(112)-32(112) -48(28) mcg cartridge with inhaler (5 sources) Start: 10-29-2024 Treprostinil ( Tyvaso Dpi) 16(112)-32(112) -48(28) mcg cartridge with inhaler Active 2 NMA INHALATION 4 TIMES DAILY October 29, 2024 1:51pm Start: 11-14-2023 End: 10-29-2024 Treprostinil (Tyvaso Dpi) 16 (112)-32(112) -48(28) mcg cartridge with inhaler Discontinued 1 NMA INHALATION 4 TIMES DAILY November 14, 2023 12:00am October 29, 2024 1:53pm Start: 11-14-2023 Treprostinil ( Tyvaso Dpi) 16(112)-32(112) -48(28) mcg cartridge with inhaler Active 1 NMA INHALATION 4 TIMES DAILY November 14, 2023 12:00am Start: 11-14-2023 Treprostinil ( Tyvaso Dpi) 16(112)-32(112) -48(28) mcg cartridge with inhaler Active 1 NMA INHALATION 4 TIMES DAILY November 13, 2023 11:00pm Turmeric extract (15 sources) Start: 01-03-2023 take 1 capsule by mo uth once daily Turmeric 400 mg capsule Active 400 mg PO DAILY January 03, 2023 12:00am Start: 01-03-2023 take 1 capsule by mo uth once daily Turmeric 400 mg capsule Active 400 mg PO DAILY January 02, 2023 11:00pm Start: 01-03-2023 take 500 mg by mouth once liz y Turmeric Active 500 MG PO DAILY January 02, 2023 11:00pm Start: 01-03-2023 take 500 mg by mouth once liz y Turmeric Active 500 MG PO DAILY January 03, 2023 12:00am turmeric root extract 500 mg cap (20 sources) Start: 01-03-2023 take 1 capsule by mouth once daily turmeric root extract 500 mg cap Take 1 capsule by mouth once daily. 01/03/2023 Active Start: 01-03-2023 take 1 capsule by mo uth once daily turmeric root extract 500 mg cap Take 1 capsule by mouth once daily. 0 01/03/2023 Active Start: 01-03-2023 take 1 capsule by mo uth once daily turmeric root extract 500 mg cap Take 1 capsule by mouth once daily. 0 01/03/2023 Suspended Start: 01-03-2023 turmeric root extract 500 mg cap Take by mouth. 0 01/03/2023 Suspended vitamin A-ascorbic acid-vitamin E-minerals (OCUVITE) Tab (20 sources) Start: 09-03-2012 take 1 tablet by mouth once daily vitamin A-ascorbic acid-vitamin E-minerals (OCUVITE) Tab Take 1 tablet by mouth once daily. 0 09/03/2012 Active Start: 09-03-2012 take 1 tablet by christiano th once daily vitamin A-ascorbic acid-vitamin E-minerals (OCUVITE) Tab Take 1 tablet by mouth once daily. 0 09/03/2012 Suspended vitamin b12 1 mg oral capsule (20 sources) Vitamin B12 Start: 06-28-2024 take 1 capsule by mouth once daily Cyanocobalamin (Vitamin B-12) 1,000 mcg capsule Active 1000 ug PO DAILY June 28, 2024 1:00am take 1 tablet by mouth once liz y cyanocobalamin (VITAMIN B-12) 1,000 mcg tab Take 1,000 mcg by mouth once daily. Active vitamin e 180 mg oral capsule (20 sources) Start: 06-28-2024 take 1 capsule by mouth once daily Vitamin E 268 mg (400 unit) capsule Active 268 mg PO DAILY June 28, 2024 1:00am Start: 01-03-2023 take 402 mg by mouth once liz y Vitamin E Active 402 MG PO DAILY January 02, 2023 11:00pm Completed/Discontinued Medications Medication Drug Class(es) Dates Sig (Normalized) Sig (Original) calcium carbonate 1500 mg / cholecalciferol 200 unt oral tablet (2 sources) Vitamin D Start: 10-06-2008 End: 10-03-2023 calcium carbonate/vitamin d3(CALCIUM 600 WITH VITAMIN D3 600 MG (1,500)-200 UNIT TAB) Take one(1) tablet twice daily. 0 0 10/06/2008 10/03/2023 Discontinued (Other) Cyanocobalamin-Liver Extract tablet (4 sources) Start: 01-03-2023 End: 06-28-2024 Cyanocobalamin-Live r Extract tablet Discontinued 1 {tbl} PO MOWEFR January 03, 2023 12:00am June 28, 2024 3:20pm Start: 01-03-2023 End: 06-28-2024 Cyanocobalamin-Liver Extract tablet Discontinued 1 {tbl} PO MOWEFR January 02, 2023 11:00pm June 28, 2024 2:20pm hydroCHLOROthiazide 25 mg oral tablet (2 sources) Thiazide Diuretic Start: 08-25-2013 End: 10-03-2023 take 1 tablet by mouth once daily hydrochlorothiazide 25 mg tablet Indications: Essential hypertension, benign Take 1 tablet by mouth once daily. 90 tablet 3 08/25/2013 10/03/2023 Discontinued (Discontinued by another Health Care Provider) hydroCHLOROthiazide 12.5 mg / lisinopril 10 mg oral tablet (19 sources) Thiazide Diuretic, Angiotensin Converting Enzyme Inhibitor Start: 09-21-2022 End: 09-27-2022 Lisinopril-Hydrochlorot hiazide 10-12.5 mg tablet Discontinued 1 {tbl} PO AT BEDTIME September 21, 2022 12:00am September 27, 2022 9:09am Start: 09-21-2022 End: 09-27-2022 take 1 tablet by mouth at bedtime Lisinopril-Hydrochlorothiazide Discontin ued 1 TABLET PO AT BEDTIME September 20, 2022 11:00pm September 27, 2022 8:09am levoFLOXacin 500 mg oral tablet (7 sources) Quinolone Antimicrobial Start: 05-07-2023 End: 08-08-2023 take 1 tablet by mouth every twenty-four hours Levofloxacin 500 mg tablet Discontinued 500 mg PO Q24H May 07, 2023 1:00am August 08, 2023 2:18pm lisinopril 10 mg oral tablet (20 sources) Angiotensin Converting Enzyme Inhibitor Start: 04-30-2024 End: 06-04-2024 take 2 tablets by mouth once daily Lisinopril 5 mg tablet Discontinued 10 mg PO DAILY April 30, 2024 2:53pm June 04, 2024 5:47pm Start: 11-14-2023 End: 04-30-2024 take 1 tablet by mouth once daily Lisinopril 5 mg tablet Discontinued 5 mg PO DAILY November 14, 2023 12:00am April 30, 2024 2:55pm Start: 05-09-2023 End: 05-09-2023 take 2 tablets by mouth once daily Lisinopril 5 mg tablet Discontinued 10 mg PO DAILY May 09, 2023 3:26pm May 09, 2023 3:28pm Start: 05-09-2023 End: 05-09-2023 take 10 mg by mouth once daily Lisinopril Discontinued 10 MG PO DAILY May 09, 2023 2:26pm May 09, 2023 2:28pm Start: 09-27-2022 End: 05-09-2023 Lisinopril 5 mg tablet Disco ntinued 5 mg PO 1500 January 03, 2023 12:00am May 09, 2023 3:27pm Start: 08-25-2013 End: 06-04-2024 take 1 tablet by mouth once daily lisinopril 10 mg tablet Indications: Essential hypertension, benign Take 1 tablet by mouth once daily. 90 tablet 3 08/25/2013 Active omega-3 fatty acids(FISH OIL 500 MG CAP) (2 sources) Start: 11-12-2007 End: 10-03-2023 omega-3 fatty acids(FISH OIL 500 MG CAP) take 2 capsules daily 0 11/12/2007 10/03/2023 Discontinued (Other) Start: 11-12-2007 omega-3 fatty acids(FISH OIL 500 MG CAP) take 2 capsules daily 0 11/12/2007 Suspended predniSONE 5 mg oral tablet (11 sources) Start: 07-06-2024 End: 10-29-2024 Prednisone 5 mg tablets,dose pack Discontinued 0 mg PO DIRECTED July 06, 2024 1:00am October 29, 2024 1:51pm Please contact the information source for Taper Schedule details. Start: 05-07-2023 End: 08-08-2023 take 4 tablets by mouth once daily, then take 3 tablets by mouth once daily, then take 2 tablets by mouth once daily, then take 1 tablet by mouth once daily Prednisone 10 mg tablet Discontinued 10 mg PO DAILY May 07, 2023 1:00am August 08, 2023 2:18pm Take 4 tabs PO daily for 3 days, then 3 tabs daily for 3 days, then 2 tabs daily for 3 days, then 1 tab daily for 3 days Vitamin E 400 unit tablet (4 sources) Start: 01-03-2023 End: 06-28-2024 Vitamin E 400 unit tablet Discontinued 402 mg PO DAILY January 03, 2023 12:00am June 28, 2024 3:22pm Start: 01-03-2023 End: 06-28-2024 Vitamin E 400 unit tablet Di scontinued 402 mg PO DAILY January 02, 2023 11:00pm June 28, 2024 2:22pm Problems Active Problems Problem Classification Problem Date Documented Da te Episodic/Chronic Cardiac dysrhythmias (20 sources) Tachycardia; Translations: [Tachycardia, unspecified] 09-21-2022 Episodic Chronic obstructive pulmonary disease and bronchiectasis (10 sources) Chronic obstructive lung disease; Translations: [Chronic obstructive pulmonary disease, unspecified] Onset: 07-08-2024 02-25-2024 Chronic Congestive heart failure; nonhypertensive (20 sources) Acute heart failure; Translations: [Heart failure, unspecified] Onset: 07-10-2024 09-21-2022 Chronic Coronary atherosclerosis and other heart disease (13 sources) Coronary arteriosclerosis; Translations: [Atherosclerotic heart disease of [place] coronary artery without angina pectoris] Onset: 10-29-2024 05-09-2023 Chronic Disorders of lipid metabolism (7 sources) Dyslipidemia; Translations: [Hyperlipidemia, unspecified] Onset: 10-29-2024 04-30-2024 Chronic Essential hypertension (20 sources) Essential hypertension; Translations: [Essential (primary) hypertension] Onset: 08-27-2007 02-05-2023 Chronic Osteoarthritis (1 source) Osteoarthritis; Translations: [Primary generalized (osteo)arthritis] 10-24-2023 Chronic Other aftercare (1 source) Patient encounter status; Translations: [Other termite control service representative (current) drug therapy] 04-29-2024 Episodic Other aftercare (2 sources) Taking high risk medication; Translations: [Other termite control service representative (current) drug therapy] 06-03-2024 Episodic Other gastrointestinal disorders (3 sources) Stool DNA-based colorectal cancer screening positive; Translations: [Other fecal abnormalities] 11-20-2022 Episodic Other gastrointestinal disorders (3 sources) Other fecal abnormalities; Translations: [Abnormal feces] 11-20-2022 Episodic Other lower respiratory disease (13 sources) Interstitial lung disease; Translations: [Interstitial pulmonary disease, unspecified] 10-24-2023 Chronic Other lower respiratory disease (4 sources) Interstitial pulmonary disease, unspecified; Translations: [Interstitial pulmonary disease (HCC)] Onset: 04-09-2024 Chronic Other lower respiratory disease (19 sources) Tachypnea; Translations: [Tachypnea, not elsewhere classified] 09-21-2022 Episodic Other lower respiratory disease (7 sources) Tachypnea, not elsewhere classified; Translations: [Tachypnea] 09-21-2022 Episodic Other lower respiratory disease (14 sources) Dyspnea on exertion; Translations: [Other forms of dyspnea] 02-05-2023 Episodic Other lower respiratory disease (18 sources) Restrictive lung disease; Translations: [Other disorders of lung] 02-05-2023 Episodic Other lower respiratory disease (11 sources) Other forms of dyspnea; Translations: [Other respiratory abnormalities] Onset: 10-29-2024 3 Episodic Other lower respiratory disease (14 sources) Other disorders of lung; Translations: [Other diseases of lung, not elsewhere classified] Onset: 07-11-2024 02-05-2023 Episodic Other lower respiratory disease (1 source) Shortness of breath; Translations: [Shortness of breath] Onset: 10-06-2024 Episodic Other nutritional; endocrine; and metabolic disorders (20 sources) Obesity; Translations: [Obesity, unspecified] 01-26-2023 Chronic Other screening for suspected conditions (not mental disorders or infectious disease) (20 sources) CT of chest abnormal; Translations: [Abnormal findings on diagnostic imaging of other specified body structures] 09-21-2022 Chronic Other screening for suspected conditions (not mental disorders or infectious disease) (20 sources) Hormone level - finding; Translations: [Other specified abnormal findings of blood chemistry] Onset: 10-07-2012 09-21-2022 Episodic Other upper respiratory disease (20 sources) Allergic rhinitis; Translations: [Allergic rhinitis, unspecified] 08-27-2007 Chronic Pulmonary heart disease (20 sources) Pulmonary hypertension; Translations: [Pulmonary hypertension, unspecified] Onset: 01-10-2024 01-05-2023 Chronic Residual codes; unclassified (14 sources) Daytime hypersomnia; Translations: [Hypersomnia, unspecified] 01-05-2023 Chronic Residual codes; unclassified (7 sources) Hypersomnia, unspecified; Translations: [Hypersomnia, unspecified] 01-05-2023 Chronic Residual codes; unclassified (13 sources) Obstructive sleep apnea syndrome; Translations: [Obstructive sleep apnea (adult) (pediatric)] 05-07-2023 Chronic Residual codes; unclassified (3 sources) Obstructive sleep apnea (adult) (pediatric); Translations: [Obstructive sleep apnea (adult)(pediatric)] 05-07-2023 Chronic Residual codes; unclassified (20 sources) Family history of ischemic heart disease; Translations: [Family history of ischemic heart disease and other diseases of the circulatory system] 08-27-2007 Episodic Residual codes; unclassified (1 source) Finding related to ability to perform personal care activity; Translations: [Other specified health status] 04-21-2024 Episodic Respiratory failure; insufficiency; arrest (adult) (20 sources) Acute on chronic hypoxemic and hypercapnic respiratory failure; Translations: [Acute and chronic respiratory failure with hypoxia] Onset: 02-25-2024 11-08-2022 Chronic Thyroid disorders (12 sources) Hypothyroidism; Translations: [Hypothyroidism, unspecified] 01-26-2023 Chronic Comment on above: ON MED Past or Other Problems Problem Classification Problem Date Documented Da te Episodic/Chronic Diabetes mellitus without complication (20 sources) Hyperglycemia; Translations: [Hyperglycemia, unspecified] Onset: 08-27-2007 09-21-2022 Episodic Fluid and electrolyte disorders (20 sources) Hypokalemia; Translations: [Hypokalemia] Onset: 07-10-2024 09-21-2022 Episodic Other aftercare (1 source) Other termite control service representative (current) drug therapy; Translations: [Medication management] Onset: 04-29-2024 Episodic Residual codes; unclassified (20 sources) At risk of osteoporosis; Translations: [Other specified personal risk factors, not elsewhere classified] Onset: 08-25-2013 08-25-2013 Episodic Respiratory failure; insufficiency; arrest (adult) (20 sources) Acute respiratory failure; Translations: [Acute respiratory failure with hypoxia] Onset: 10-02-2023 09-21-2022 Episodic Results Test Name Value Interpretation Reference Range Facility [facility] 11-06-2024 [facility] Office Visit ([facility]) MAKENNA ANDRE ([id number]) 1955 F Date Time Provider Department 11/06/24 2:00 PM BASSEM CASE [facility] During your visit today, we recorded the following information about you: Pulse Blood pressure Weight 100/minute 138/72 61.2 kg Bassem Case APRN.[facility] 11/07/2024 9:49 AM Signed Chronic Care Clinic/CHF/Pulmonary Hypertension Clinc Chief Complaint Exertional dyspnea Medication Monitoring -High Risk Medication-Tyvaso HISTORY OF PRESENT ILLNESS: Makenna Andre is a pleasant 68 year old female who is known to this clinic and presents as follow up for PH-ILD. Patient last seen back on 09/2023, in the interim she endorses doing very well. She started pulmonary rehab which she has done for several weeks now and has noticed some significant improvement- doing just amazing! They increase her O2 to up to 10-12LNC for her to complete her exercises, but since its initiation she feels it is helping significantly. She ambulated from the waiting room to the exam room basically using the wheelchair only to carry her purse and her oxygen tank She was a little dyspneic but she did very well Currently today in the clinic she is at 6 L She is in good spirits patient iand s not volume overloaded She has no peripheral edema on her lower extremities face or arms She denies chest pain palpitations nausea lightheadedness diarrhea or increased peripheral edema chronic cough or headache She currently on Tyvaso 80mg QID with good tolerance and has noticed significant degree of improvement. Specifically she is able to perform activities longer and specifically improvement in activities of daily living. She denies dyspnea with routine ADLs or walking around the house. Longer distances and walking up flights of steps with mild dyspnea.She paces herself. Endorses low sodium diet. Wears 6LNC continuously with good compliance Wears CPAP qHS with great compliance and clinical benefit. Her blood pressure was well-controlled on lisinopril and Cardizem It should be noted that the patient has had a weight loss since May of this year her weight was 147 pounds -today in the clinic she is 135 pounds Patient is attributing a lot of this weight loss to no longer retaining water PAST MEDICAL HISTORY Diagnosis Date Allergic rhinitis, cause unspecified Essential hypertension, benign Family history of ischemic heart disease father age 50, brother age 42 Obesity, unspecified PAST SURGICAL HISTORY Procedure Laterality Date COLONOSCOPY FLX DX W/COLLJ SPEC WHEN PFRMD 11-01-12 PAST SURGICAL HISTORY OF 1992 REMOVAL OF BENIGN CYST-RIGHT SIDE OF NECK TONSILLECTOMY AND ADENOIDECTOMY AGE 12/1992 FAMILY HISTORY Problem Relation Age of Onset Heart Father [place] - first age 40's, CVA age 50 Stroke Father CVA - first age 42, CVA age 50 Hypertension Mother Diabetes Mother Heart Brother age 41; also heavy etoh use Heart Brother stented age 42 Hypertension Brother Breast Cancer Maternal Aunt x2 Heart Paternal Uncle x2 Allergies Mother Cancer Mother pancreatic cancer Social History Tobacco Use Smoking status: Never Substance Use Topics Alcohol use: No Drug use: No ALLERGIES Allergen Reactions Darvocet-N 100 [Pro* Unknown numbness Penicillins Hives Last 2 Encounter Wt Readings: Date: Wt: 09/26/2024 66.7 kg (147 lb) 06/03/2024 66.7 kg (147 lb) General: Well appearing, appears stated age and in no acute distress. Psych: Normal Affect Eyes: No subconjunctival hemorrhage Neck: no jugular venous distention Lymph: Lungs: no wheezing -on 6 L NC Heart: regular rhythm Abdomen: soft Extremities: No peripheral edema Neuro: Grossly nonfocal LABS: TSH 1.290 12/09/2012 Triglyceride 84 08/13/2013 HDL Cholesterol 46 08/13/2013 LDL Chol, [place] 121 08/13/2013 Cholesterol, Total 184 08/13/2013 CBC: Hemoglobin (g/dL) Date Value 10/05/2023 13.6 Hematocrit (%) Date Value 10/05/2023 43.3 WBC (k/uL) Date Value 10/05/2023 10.87 Platelet Count (k/uL) Date Value 10/05/2023 334 BMP: Potassium (mmol/L) Date Value 10/05/2023 4.2 08/13/2013 3.5 Sodium (mmol/L) Date Value 10/05/2023 136 08/13/2013 141 Chloride (mmol/L) Date Value 10/05/2023 94 08/13/2013 100 CO2 (mmol/L) Date Value 10/05/2023 24 08/13/2013 27 Creatinine (mg/dL) Date Value 10/05/2023 0.61 08/13/2013 0.58 BUN (mg/dL) Date Value 10/05/2023 19 08/13/2013 18 Anion Gap (mmol/L) Date Value 10/05/2023 18 08/13/2013 14 Calcium (mg/dL) Date Value 08/13/2013 9.7 Calcium, Total (mg/dL) Date Value 10/05/2023 9.8 ASSESSMENT - 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 Normal [facility] MD - Individual Treatment Pl anon 10-30-2024 MD - Individual Treatment Plan Normal [facility] Cardiology Visit Reporton Cardiology Visit Report Normal [facility] CNPNon 10-21-2024 CNP Telephone ([facility]) MAKENNA NADRE ([id number]) 1955 F Date Time Provider Department 10/21/24 AMOL GODWIN [facility] During your visit today, we recorded the following information about you: Camila Desai RN 10/21/2024 2:25 PM Signed Requesting order for continued follow up with the [facility]/chronic care clinic Allergies As of Date: 10/21/2024 Noted Allergy Reaction DARVOCET-N 100 (PROPOXYPHENE N-AC*08/27/2007 16 - Unknown Comments: numbness PENICILLINS 10/07/2012 4 - Hives Date Reviewed: 09/29/2024 Reviewed by: Amol Godwin MD - Fully Assessed Primary Visit Diagnosis:Pulmonary hypertension, unspecified (HCC) [I27.20] Other Visit Diagnosis:Chronic respiratory failure with hypoxia (HCC) [J96.11] Order(s):CONSULT TO CHRONIC CARE [[id number]] Order #: [id number]: 1 Prescriptions as of 10/21/2024 - sodium chloride (AYR SALINE) 0.65 % nasal spray Use 1 spray in the nose as needed. - TYVASO DPI 64 mcg dry powder inhaler Inhale 1 puff as instructed four times daily. - fluticasone-salmetero l (ADVAIR DISKUS) 500-50 mcg/dose dsdv Inhale 1 Puff as instructed two times a day. Rinse and gargle mouth with water after each use. - albuterol HFA (PROVENTIL HFA, VENTOLIN HFA) 90 mcg/actuation inhaler Inhale 2 Puffs as instructed every 6 hours as needed for wheezing/shortness of breath. - RED BEET ROOT-SOUR CANNON EXT ORAL Take by mouth. - OXYGEN, HOME THERAPY, Inhale 6-10 L/min as instructed continuous. - dilTIAZem LA (CARDIZEM LA) 240 mg 24 hr tablet Take 240 mg by mouth once daily. - acetaminophen (TYLENOL ARTHRITIS PAIN) 650 mg CR tablet Take 1 tablet by mouth every 8 hours as needed for pain. - cyanocobalamin (VITAMIN B-12) 1,000 mcg tab Take 1,000 mcg by mouth once daily. - Chromium Picolinate 200 mcg tab Take 1 tablet by mouth once daily. - vitamin E, dl,tocopheryl acet, (VITAMIN E, DL, ACETATE,) 180 mg (400 unit) capsule Take 1 capsule by mouth once daily. - Glucosamine-Chondroit in (OSTEO BI-FLEX) 250-200 mg tab Take 2 tablets by mouth once daily. - potassium chloride ER (KLOR-CON) 20 mEq tablet Take 1 tablet by mouth once daily. - calcium carb-D3-mag ox-zinc ox (NISH MAG ZINC PLUS D3) 333 mg-133 unit -133 mg-5 mg tab Take 1 tablet by mouth once daily. - levothyroxine (SYNTHROID) 50 mcg tablet Take 1 tablet by mouth daily before breakfast. - pravastatin (PRAVACHOL) 20 mg tablet Take 1 tablet by mouth once daily. - turmeric root extract 500 mg cap Take 1 capsule by mouth once daily. - vit A and D3 in cod liver oil 1,250-135 unit cap Take 1 capsule by mouth once daily. - furosemide (LASIX) 40 mg tablet Take 40 mg by mouth once daily. - Echinacea 500 mg cap Take 1 capsule by mouth two times a day. - lisinopril 10 mg tablet Take 1 tablet by mouth once daily. - Cholecalciferol, Vitamin D3, 2,000 unit cap Take 1 tablet by mouth once daily. - vitamin A-ascorbic acid-vitamin E-minerals (OCUVITE) Tab Take 1 tablet by mouth once daily. - UQN-Tzylapveb-Gutszva nophen (ALLERGY SINUS PE) 2-5-325 mg ORAL Tab Take by mouth as needed. - GARLIC 1,000 MG CAP Take one tablet daily. - aspirin(ADULT LOW DOSE ASPIRIN 81 MG TAB, DELAYED RELEASE) Take one(1) tablet daily. - multivitamins(DAILY MULTIVITAMIN TAB) Take one(1) tablet daily. 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 09-30-2024 [facility] Telephone ([facility]) MAKENNA ANDRE ([id number]) 1955 F Date Time Provider Department 09/30/24 AMOL GODWIN [facility] During your visit today, we recorded the following information about you: Ifeoma Coy 09/30/2024 11:24 AM Signed Message Received: Today Amol Godwin MD Gallimore, Gretchen; P [facility] Admin Pool Please AC Previous Messages ----- Message ----- From: Ifeoma Coy Sent: 09/30/2024 8:34 AM EDT To: Amol Godwin MD; [facility] Admin Pool That's the [facility] DME supply order. I can help you this morning if you'd like. gg ----- Message ----- From: Amol Godwin MD Sent: 09/30/2024 7:49 AM EDT To: Ifeoma Coy; [facility] Admin Pool Thank you for responding, Ifeoma needed help with getting her set up with humidified O2. She doesn't have this at home. How do we go about ordering this again? AC ----- Message ----- From: Ifeoma Coy Sent: 09/29/2024 3:37 PM EDT To: Amol Godwin MD; [facility] Admin Pool AC- It isn't clear why this was sent to the admin pool. Help please. Thanks, gg ----- Message ----- From: Amol Godwin MD Sent: 09/29/2024 3:25 PM EDT To: Bassem Case APRN.[employer]; * Ifeoma Coy 09/30/2024 11:24 AM Signed The correct order template is below. Ifeoma Matos 10/01/2024 1:22 PM Signed O2 order faxed to [employer]. Ifeoma Coy Allergies As of Date: 09/30/2024 Noted Allergy Reaction DARVOCET-N 100 (PROPOXYPHENE N-AC*08/27/2007 16 - Unknown Comments: numbness PENICILLINS 10/07/2012 4 - Hives Date Reviewed: 09/29/2024 Reviewed by: Amol Godwin MD - Fully Assessed Reason for Visit: Orders [681] Primary Visit Diagnosis:Acute respiratory failure with hypoxia (HCC) [J96.01] Order(s):OXYGEN ORDER CHANGES [[id number]] Order #: [id number] Prescriptions as of 10/01/2024 - sodium chloride (AYR SALINE) 0.65 % nasal spray Use 1 spray in the nose as needed. - TYVASO DPI 64 mcg dry powder inhaler Inhale 1 puff as instructed four times daily. - fluticasone-salmetero l (ADVAIR DISKUS) 500-50 mcg/dose dsdv Inhale 1 Puff as instructed two times a day. Rinse and gargle mouth with water after each use. - albuterol HFA (PROVENTIL HFA, VENTOLIN HFA) 90 mcg/actuation inhaler Inhale 2 Puffs as instructed every 6 hours as needed for wheezing/shortness of breath. - RED BEET ROOT-SOUR CANNON EXT ORAL Take by mouth. - OXYGEN, HOME THERAPY, Inhale 6-10 L/min as instructed continuous. - dilTIAZem LA (CARDIZEM LA) 240 mg 24 hr tablet Take 240 mg by mouth once daily. - acetaminophen (TYLENOL ARTHRITIS PAIN) 650 mg CR tablet Take 1 tablet by mouth every 8 hours as needed for pain. - cyanocobalamin (VITAMIN B-12) 1,000 mcg tab Take 1,000 mcg by mouth once daily. - Chromium Picolinate 200 mcg tab Take 1 tablet by mouth once daily. - vitamin E, dl,tocopheryl acet, (VITAMIN E, DL, ACETATE,) 180 mg (400 unit) capsule Take 1 capsule by mouth once daily. - Glucosamine-Chondroit in (OSTEO BI-FLEX) 250-200 mg tab Take 2 tablets by mouth once daily. - potassium chloride ER (KLOR-CON) 20 mEq tablet Take 1 tablet by mouth once daily. - calcium carb-D3-mag ox-zinc ox (NISH MAG ZINC PLUS D3) 333 mg-133 unit -133 mg-5 mg tab Take 1 tablet by mouth once daily. - levothyroxine (SYNTHROID) 50 mcg tablet Take 1 tablet by mouth daily before breakfast. - pravastatin (PRAVACHOL) 20 mg tablet Take 1 tablet by mouth once daily. - turmeric root extract 500 mg cap Take 1 capsule by mouth once daily. - vit A and D3 in cod liver oil 1,250-135 unit cap Take 1 capsule by mouth once daily. - furosemide (LASIX) 40 mg tablet Take 40 mg by mouth once daily. - Echinacea 500 mg cap Take 1 capsule by mouth two times a day. - lisinopril 10 mg tablet Take 1 tablet by mouth once daily. - Cholecalciferol, Vitamin D3, 2,000 unit cap Take 1 tablet by mouth once daily. - vitamin A-ascorbic acid-vitamin E-minerals (OCUVITE) Tab Take 1 tablet by mouth once daily. - RIU-Fvtzbulld-Dqmwseo nophen (ALLERGY SINUS PE) 2-5-325 mg ORAL Tab Take by mouth as needed. - GARLIC 1,000 MG CAP Take one tablet daily. - aspirin(ADULT LOW DOSE ASPIRIN 81 MG TAB, DELAYED RELEASE) Take one(1) tablet daily. - multivitamins(DAILY MULTIVITAMIN TAB) Take one(1) tablet daily. 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 [facility] MAKENNA ANDRE ([id number]) 1955 F Date Time Provider Department 09/30/24 BASSEM CASE [facility] During your visit today, we recorded the following information about you: Bassem Case, [place] 09/30/2024 1:41 PM Signed Phoned the patient this afternoon at the office visit on 09/26/2024 Dr. Godwin had prescribed an increase in the Tyvaso dosage to 80 mcg 4 times daily. In order to achieve this dose the patient will need to use a 64 mcg plus a 16 mcg cartridge with each dose in order to equal 80 mcg. 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 - TYVASO DPI 64 mcg dry powder inhaler Inhale 1 puff as instructed four times daily. - fluticasone-salmetero l (ADVAIR DISKUS) 500-50 mcg/dose dsdv Inhale 1 Puff as instructed two times a day. Rinse and gargle mouth with water after each use. - albuterol HFA (PROVENTIL HFA, VENTOLIN HFA) 90 mcg/actuation inhaler Inhale 2 Puffs as instructed every 6 hours as needed for wheezing/shortness of breath. - RED BEET ROOT-SOUR CANNON EXT ORAL Take by mouth. - OXYGEN, HOME THERAPY, Inhale 6-10 L/min as instructed continuous. - dilTIAZem LA (CARDIZEM LA) 240 mg 24 hr tablet Take 240 mg by mouth once daily. - acetaminophen (TYLENOL ARTHRITIS PAIN) 650 mg CR tablet Take 1 tablet by mouth every 8 hours as needed for pain. - cyanocobalamin (VITAMIN B-12) 1,000 mcg tab Take 1,000 mcg by mouth once daily. - Chromium Picolinate 200 mcg tab Take 1 tablet by mouth once daily. - vitamin E, dl,tocopheryl acet, (VITAMIN E, DL, ACETATE,) 180 mg (400 unit) capsule Take 1 capsule by mouth once daily. - Glucosamine-Chondroit in (OSTEO BI-FLEX) 250-200 mg tab Take 2 tablets by mouth once daily. - potassium chloride ER (KLOR-CON) 20 mEq tablet Take 1 tablet by mouth once daily. - calcium carb-D3-mag ox-zinc ox (NISH MAG ZINC PLUS D3) 333 mg-133 unit -133 mg-5 mg tab Take 1 tablet by mouth once daily. - levothyroxine (SYNTHROID) 50 mcg tablet Take 1 tablet by mouth daily before breakfast. - pravastatin (PRAVACHOL) 20 mg tablet Take 1 tablet by mouth once daily. - turmeric root extract 500 mg cap Take 1 capsule by mouth once daily. - vit A and D3 in cod liver oil 1,250-135 unit cap Take 1 capsule by mouth once daily. - furosemide (LASIX) 40 mg tablet Take 40 mg by mouth once daily. - Echinacea 500 mg cap Take 1 capsule by mouth two times a day. - lisinopril 10 mg tablet Take 1 tablet by mouth once daily. - Cholecalciferol, Vitamin D3, 2,000 unit cap Take 1 tablet by mouth once daily. - vitamin A-ascorbic acid-vitamin E-minerals (OCUVITE) Tab Take 1 tablet by mouth once daily. - AMD-Mxeeeoqmi-Vkdebuc nophen (ALLERGY SINUS PE) 2-5-325 mg ORAL Tab Take by mouth as needed. - GARLIC 1,000 MG CAP Take one tablet daily. - aspirin(ADULT LOW DOSE ASPIRIN 81 MG TAB, DELAYED RELEASE) Take one(1) tablet daily. - multivitamins(DAILY MULTIVITAMIN TAB) Take one(1) tablet daily. 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 - here [Z01.419] 08/27/2007 Class: Chronic FAMILY HX ISCHEM HEART DIS [Z82.49] OBESITY NOS [E66.9] IMPAIRED FASTING GLUCOSE [R73.01] 08/27/2007 Screening for colon cancer [Z12.11] 10/07/2012 At risk for osteoporosis [Z91.89] 08/25/2013 Acute respiratory failure with hypoxia (HCC) [J*10/02/2023 Pulmonary hypertension, unspecified (HCC) [I27.*04/30/2024 Chronic obstructive pulmonary disease, unspecif*07/08/2024 Encounter Status:Closed by BASSEM CASE on 09/30/24 [facility] MD - Individual Treatment Pl vero 09-30-2024 MD - Individual Treatment Plan [facility] CNOVon 09-26-2024 CNOV Office Visit ([facility] ) MAKENNA ANDRE ([id number]) 1955 F Date Time Provider Department 09/26/24 2:30 PM AMOL GODWIN [facility] During your visit today, we recorded the following information about you: Temperature Pulse Respiration Blood pressure 97.8 degrees 110/minute 16/minute 136/53 Weight Height 66.7 kg 1.575 m Amol Godwin MD 09/29/2024 3:25 PM Signed Patient Name: Makenna Andre PRIMARY CARE PHYSICIAN: Hoda Del Rosario MD Date of visit: September 26, 2024 COMMUNICATION WILL BE SENT VIA SHARED MEDICAL RECORDS OR US MAIL. Subjective: Makenna Andre is a 68 year old female who is known to this clinic and presents as follow up for PH-ILD. Patient last seen back on 09/2023, in the interim she endorses doing relatively well. She started pulmonary rehab in which she has done a few sessions and has noticed some significant improvement. They increase her O2 to up to 12LNC for her to complete her exercises, but since its initiation she feels it is helping significantly. She currently on Tyvaso 64 mcg QID with good tolerance and has noticed some degree of improvement, specifically she is able to perform activities longer and specifically improvement in FC. She denies dyspnea with routine ADLs or walking around the house. Longer distances and walking up flights of steps. Denies chest pain, minimal coughing, palpitations, fevers, chills, NS, or pedal edema. Endorses low sodium diet. Wears 6LNC continuously with good compliance, but states this isn't humidified and has been dealing with blood noses. Wears CPAP qHS with great compliance and clinical benefit. In review (Documentation from prior appt on 09/2023): She never grew up on farm. She owns inside cat/dog (pug/bulldog). Denies birds at this time. She did have a bird, cockateel for about 6 years over 28 years ago. Denies any bird exposures, rodent manifestations, bats exposures, jacuzzi, or mold in the house. 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 + dust exposure in which she frequently blew black out of her nose. Denies any unusual hobbies. Had remote cigarette use predominanly socially 3 cigarettes/week, last cigarette was > 40 years ago. Denies drug use, ETOH abuse (occasional social use). Has been on statin for years. Has no personal hx of AI. Family hx of lupus (cousins). + arthritis involving hands. PMHx: PAST MEDICAL HISTORY Diagnosis Date Allergic rhinitis, cause unspecified Essential hypertension, benign Family history of ischemic heart disease father age 50, brother age 42 Obesity, unspecified MEDICATIONS: TYVASO DPI 64 mcg dry powder inhaler Inhale 1 puff as instructed four times daily. fluticasone-salmetero l (ADVAIR DISKUS) 500-50 mcg/dose dsdv Inhale 1 Puff as instructed two times a day. Rinse and gargle mouth with water after each use. albuterol HFA (PROVENTIL HFA, VENTOLIN HFA) 90 mcg/actuation inhaler Inhale 2 Puffs as instructed every 6 hours as needed for wheezing/shortness of breath. RED BEET ROOT-SOUR CANNON EXT ORAL Take by mouth. OXYGEN, HOME THERAPY, Inhale 6-10 L/min as instructed continuous. dilTIAZem LA (CARDIZEM LA) 240 mg 24 hr tablet Take 240 mg by mouth once daily. acetaminophen (TYLENOL ARTHRITIS PAIN) 650 mg CR tablet Take 1 tablet by mouth every 8 hours as needed for pain. cyanocobalamin (VITAMIN B-12) 1,000 mcg tab Take 1,000 mcg by mouth once daily. Chromium Picolinate 200 mcg tab Take 1 tablet by mouth once daily. vitamin E, dl,tocopheryl acet, (VITAMIN E, DL, ACETATE,) 180 mg (400 unit) capsule Take 1 capsule by mouth once daily. Glucosamine-Chondroit in (OSTEO BI-FLEX) 250-200 mg tab Take 2 tablets by mouth once daily. potassium chloride ER (KLOR-CON) 20 mEq tablet Take 1 tablet by mouth once daily. calcium carb-D3-mag ox-zinc ox (NISH MAG ZINC PLUS D3) 333 mg-133 unit -133 mg-5 mg tab Take 1 tablet by mouth once daily. levothyroxine (SYNTHROID) 50 mcg tablet Take 1 tablet by mouth daily before breakfast. pravastatin (PRAVACHOL) 20 mg tablet Take 1 tablet by mouth once daily. turmeric root extract 500 mg cap Take 1 capsule by mouth once daily. vit A and D3 in cod liver oil 1,250-135 unit cap Take 1 capsule by mouth once daily. furosemide (LASIX) 40 mg tablet Take 40 mg by mouth once daily. Echinacea 500 mg cap Take 1 capsule by mouth two times a day. lisinopril 10 mg tablet Take 1 tablet by mouth once daily. Cholecalciferol, Vitamin D3, 2,000 unit cap Take 1 tablet by mouth once daily. vitamin A-ascorbic acid-vitamin E-minerals (OCUVITE) Tab Take 1 tablet by mouth once daily. OZO-Jnnhrnaxi-Kbrwkde nophen (ALLERGY SINUS PE) 2-5-325 mg ORAL Tab Take by mouth as needed. GARLIC 1,000 MG CAP Take one tablet daily. aspirin(ADULT LOW DOSE ASPIRIN 81 MG (more content not included)... [facility] Telephone ([facility]) MAKENNA ANDRE ([id number]) 1955 F Date Time Provider Department 09/11/24 AMOL GODWIN [facility] During your visit today, we recorded the following information about you: Claudia Galeano RN 09/11/2024 12:47 PM Signed Claudia Galeano RN 09/24/2024 1:23 PM Signed Allergies As of Date: 09/11/2024 Noted Allergy Reaction DARVOCET-N 100 (PROPOXYPHENE N-AC*08/27/2007 16 - Unknown Comments: numbness PENICILLINS 10/07/2012 4 - Hives Date Reviewed: 07/10/2024 Reviewed by: Bassem Case APRN.[employer] - Fully Assessed Reason for Visit: insurance authorization / Tyvaso [Other] Prescriptions as of 09/24/2024 - TYVASO DPI 64 mcg dry powder inhaler Inhale 1 puff as instructed four times daily. - fluticasone-salmetero l (ADVAIR DISKUS) 500-50 mcg/dose dsdv Inhale 1 Puff as instructed two times a day. Rinse and gargle mouth with water after each use. - albuterol HFA (PROVENTIL HFA, VENTOLIN HFA) 90 mcg/actuation inhaler Inhale 2 Puffs as instructed every 6 hours as needed for wheezing/shortness of breath. - RED BEET ROOT-SOUR CANNON EXT ORAL Take by mouth. - OXYGEN, HOME THERAPY, Inhale 6-10 L/min as instructed continuous. - dilTIAZem LA (CARDIZEM LA) 240 mg 24 hr tablet Take 240 mg by mouth once daily. - acetaminophen (TYLENOL ARTHRITIS PAIN) 650 mg CR tablet Take 1 tablet by mouth every 8 hours as needed for pain. - cyanocobalamin (VITAMIN B-12) 1,000 mcg tab Take 1,000 mcg by mouth once daily. - Chromium Picolinate 200 mcg tab Take 1 tablet by mouth once daily. - vitamin E, dl,tocopheryl acet, (VITAMIN E, DL, ACETATE,) 180 mg (400 unit) capsule Take 1 capsule by mouth once daily. - Glucosamine-Chondroit in (OSTEO BI-FLEX) 250-200 mg tab Take 2 tablets by mouth once daily. - potassium chloride ER (KLOR-CON) 20 mEq tablet Take 1 tablet by mouth once daily. - calcium carb-D3-mag ox-zinc ox (NISH MAG ZINC PLUS D3) 333 mg-133 unit -133 mg-5 mg tab Take 1 tablet by mouth once daily. - levothyroxine (SYNTHROID) 50 mcg tablet Take 1 tablet by mouth daily before breakfast. - pravastatin (PRAVACHOL) 20 mg tablet Take 1 tablet by mouth once daily. - turmeric root extract 500 mg cap Take 1 capsule by mouth once daily. - vit A and D3 in cod liver oil 1,250-135 unit cap Take 1 capsule by mouth once daily. - furosemide (LASIX) 40 mg tablet Take 40 mg by mouth once daily. - Echinacea 500 mg cap Take 1 capsule by mouth two times a day. - lisinopril 10 mg tablet Take 1 tablet by mouth once daily. - Cholecalciferol, Vitamin D3, 2,000 unit cap Take 1 tablet by mouth once daily. - vitamin A-ascorbic acid-vitamin E-minerals (OCUVITE) Tab Take 1 tablet by mouth once daily. - KWV-Kapttllqj-Pxxkpws nophen (ALLERGY SINUS PE) 2-5-325 mg ORAL Tab Take by mouth as needed. - GARLIC 1,000 MG CAP Take one tablet daily. - aspirin(ADULT LOW DOSE ASPIRIN 81 MG TAB, DELAYED RELEASE) Take one(1) tablet daily. - multivitamins(DAILY MULTIVITAMIN TAB) Take one(1) tablet daily. 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 - here [Z01.419] 08/27/2007 Class: Chronic FAMILY HX ISCHEM HEART DIS [Z82.49] OBESITY NOS [E66.9] IMPAIRED FASTING GLUCOSE [R73.01] 08/27/2007 Screening for colon cancer [Z12.11] 10/07/2012 At risk for osteoporosis [Z91.89] 08/25/2013 Acute respiratory failure with hypoxia (HCC) [J*10/02/2023 Pulmonary hypertension, unspecified (HCC) [I27.*04/30/2024 Chronic obstructive pulmonary disease, unspecif*07/08/2024 Encounter Status:Closed by CLAUDIA GALEANO on 09/11/24 Normal [facility] MD - History AND Physicalon 09-04-2024 MD - History & Physical Normal [facility] MD - Individual Treatment Pl anon 09-04-2024 MD - Individual Treatment Plan Normal [facility] Basic Metabolic Profile (BMP )on 07-17-2024 BUN/CRE 21.0 RATIO High 03-16 [facility] Comment on above: Performed By: #### L 500.2500 ####[facility] [address] [place], [place], [address] [place],Total 9.8 mg/dL Normal 8.5-10.1 [facility] Comment on above: Performed By: #### L 500.2500 ####[facility] [address] [place], [address] Chloride [Moles/Vol] 92 mmol/L Low 98-107 [facility] Comment on above: Performed By: #### L 500.2500 ####[facility] [address] [place], [address] CO2 [Moles/Vol] 29.0 mmol/L Normal 21.0-32.0 [facility] Comment on above: Performed By: #### L 500.2500 ####[facility] [address] [place], [address] Creatinine [Mass/Vol] 0.95 mg/dL Normal 0.55-1.02 [facility] Comment on above: Result Comment: The validity of the calculated GFR GFRAA in patients over70 years has not been determined. Clinical correlation isessential. Performed By: #### L 500.2500 ####[facility] [address] [place], [address] EST GFR - AA 75 mL/min Normal >60 [facility] Comment on above: Result Comment: Afri can [place] GFR Calc Performed By: #### L 500.2500 ####[facility] [address] [place], [address] GAP 10 Normal 5-15 [facility] Comment on above: Performed By: #### L 500.2500 ####[facility] [address] [place], [address] GFR/1.73 sq M.predicted among non-blacks MDRD (S/P/Bld) [Vol rate/Area] 62 mL/min/{1.73_m2} Normal >60 [facility] Comment on above: Result Comment: Non- GFR Calc Performed By: #### L 500.2500 ####[facility] [address] [place], [address] Glucose [Mass/Vol] 199 mg/dL High 74-106 [facility] Comment on above: Result Comment: Fast ing Glucose result greater than or equal to 126 mg/dLsuggests DIABETES MELLITUS per A.D.A. criteria. Performed By: #### L 500.2500 ####[facility] [address] [place], [address] Potassium [Moles/Vol] 4.4 mmol/L Normal 3.5-5.1 [facility] Comment on above: Performed By: #### L 500.2500 ####[facility] [address] [place], [address] Sodium [Moles/Vol] 131 mmol/L Low 136-145 [facility] Comment on above: Performed By: #### L 500.2500 ####[facility] [address] [place], [address] Urea nitrogen [Mass/Vol] 20 mg/dL High 7-18 [facility] Comment on above: Performed By: #### L 500.2500 ####[facility] [address] [place], [address] Blood urea nitrogen (BUN)/cr eatinine ratioOrdered By: Hoda Del Rosario on 07-17-2024 Urea nitrogen/Creatinine [Mass ratio] 21.0 mg/mg High 10-20 [facility] Carbon dioxide measurementOr dered By: Hoda Del Rosario on 07-17-2024 CO2 [Moles/Vol] 29.0 mmol/L 21.0-32.0 [facility] Chloride measurementOrdered By: Hoda Del Rosario on 07-17-2024 Chloride [Moles/Vol] 92 mmol/L Low 98-107 [facility] Estimated glomerular filtrat ion rate (GFR) AmericanOrdered By: Hoda Del Rosario on 07-17-2024 Estimated GFR (MDRD) Amer 75 mL/min >60 [facility] Comment on above: GFR Calc Glomerular filtration rate ( GFR) estimationOrdered By: Hoda Del Rosario on 07-17-2024 Estimated GFR (MDRD) Non-Af Amer 62 mL/min >60 [facility] Comment on above: Non- GFR Calc GFR/1.73 sq M.predicted among non-blacks MDRD (S/P/Bld) [Vol rate/Area] 62 mL/min/{1.73_m2} >60 [facility] Comment on above: Non- GFR Calc Glucose measurementOrdered B y: Hoda Del Rosario on 07-17-2024 Glucose [Mass/Vol] 199 mg/dL High 74-106 [facility] Comment on above: Fasting Glucose resu lt greater than or equal to 126 mg/dL suggests DIABETES MELLITUS per A.D.A. criteria. Potassium measurementOrdered By: Hoda Del Rosario on 07-17-2024 Potassium [Moles/Vol] 4.4 mmol/L 3.5-5.1 [facility] Serum anion gap measurementO rdered By: Hoda Del Rosario on 07-17-2024 Anion gap [Moles/Vol] 10 mmol/L 5-15 [facility] Serum or plasma calcium juanpablo urement (mass/volume)Ordered By: Hoda Del Rosario on 07-17-2024 Calcium [Mass/Vol] 9.8 mg/dL 8.5-10.1 [facility] Serum or plasma creatinine m easurement (mass/volume)Ordered By: Hoda Del Rosario on 07-17-2024 Creatinine [Mass/Vol] 0.95 mg/dL 0.55-1.02 [facility] Comment on above: The validity of the calculated GFR & GFRAA in patients over 70 years has not been determined. Clinical correlation is essential. Serum or plasma urea nitroge n measurement (mass/volume)Ordered By: Hoda Del Rosario on 07-17-2024 Urea nitrogen [Mass/Vol] 20 mg/dL High 7-18 [facility] Sodium levelOrdered By: Margie Del Rosario on 07-17-2024 Sodium [Moles/Vol] 131 mmol/L Low 136-145 [facility] CNOVon 07-10-2024 [facility] ANDREAMAKENNA Chanel ([id number]) 1955 F Date Time Provider Department 07/10/24 2:00 PM BASSEM CASE [facility] During your visit today, we recorded the following information about you: Pulse Respiration Blood pressure 94/minute 24/minute 87/53 Bassem Case, ELMA.[employer] 07/10/2024 3:13 PM Signed Chronic Care Clinic/CHF?Pulmonary Hypertension Clinic Chief Complaint Exertional Dyspnea High Risk Medication Monitoring (Tyvaso) Pulmonary Hypertension HISTORY OF PRESENT ILLNESS: Patient is a pleasant 68-year-old female who is here for PAH/ILD evaluation. Patient had a recent hospitalization at [facility] for acute on chronic hypoxic respiratory failure and volume overload. Evidently the patient was on Lasix while at home but had been tapering her dosage and this resulted in volume overload and necessary hospitalization. She was hospitalized for a full week. Current dose of Lasix is 40mg daily. She is not certain whether or not it was precribed BID and I cannot see medical records from [place] in [facility]. Patient had undergone a right heart catheterization which with Dr. Godwin which was impressive for precapillary PAH the results of which are outlined below. Current treatment regimen for PAH includes Tyvaso DPI 64mcg qid, Since her hospitalization the patient was discharged on 3 L nasal cannula with Optimizer pendant and she has been using this continuously.She does endorse improvement in her breathing and symptoms overal since discharge from [facility] 4 days ago. Patient does experience some conversational dyspnea here in the clinic today. When she first arrived I placed the pulse oximeter on her finger and while speaking to me her O2 sat was 87 to 80% when not speaking her oxygen saturation sue within several minutes to about 94%. Patient tells me that she does have mild exertional dyspnea when walking around the house. Last night she was able to take a shower after she had turned her oxygen up to 8 L. She denies chest pain palpitations lightheadedness syncope or presyncopal episodes She denies orthopnea PND or cough she tells me that today was the first time she experienced some nausea after taking her Tyvaso She has never complained or experienced this before. I told the patient should she is continue to have this for the next day or so she needs to call us and we will either decrease her dosage of Tyvaso or place her on as needed Zofran. Physical exam the patient essentially appears euvolemic. She has no lower extremity edema no facial edema weight is stable she weight 141.4 pounds she tells me she normally weighs about 136 pounds out of her home scale she will continue to weigh herself daily she would notify us if she gains 2 or 3 pounds in 3 days or 5 pounds in 1 week for diuretic adjustment. Blood pressure is a little soft at 87/53 but she is sitting quietly in the chair and totally asymptomatic she fully denies being lightheaded at home PAST MEDICAL HISTORY Diagnosis Date Allergic rhinitis, cause unspecified Essential hypertension, benign Family history of ischemic heart disease father age 50, brother age 42 Obesity, unspecified PAST SURGICAL HISTORY Procedure Laterality Date COLONOSCOPY FLX DX W/COLLJ SPEC WHEN PFRMD 11-01-12 PAST SURGICAL HISTORY OF 1992 REMOVAL OF BENIGN CYST-RIGHT SIDE OF NECK TONSILLECTOMY AND ADENOIDECTOMY AGE 12/> 1992 FAMILY HISTORY Problem Relation Age of Onset Heart Father [place] - first age 40's, CVA age 50 Stroke Father CVA - first age 42, CVA age 50 Hypertension Mother Diabetes Mother Heart Brother age 41; also heavy etoh use Heart Brother stented age 42 Hypertension Brother Breast Cancer Maternal Aunt x2 Heart Paternal Uncle x2 Allergies Mother Cancer Mother pancreatic cancer Social History Tobacco Use Smoking status: Never Substance Use Topics Alcohol use: No Drug use: No ALLERGIES Allergen Reactions Darvocet-N 100 [Pro* Unknown numbness Penicillins Hives Last 2 Encounter Wt Readings: Date: Wt: 06/03/2024 66.7 kg (147 lb) 04/29/2024 71.7 kg (158 lb) General: appears stated age and in no acute distress. Psych: Normal Affect Eyes: No subconjunctival hemorrhage Skin: bruising left forearm at previous IV site Patient denies a fall Neck: no jugular venous distention Lungs: Diminished breath sound no wheezing or rhonchi. Heart: S1, S2 normal, no murmur Abdomen: Non-tender. Extremities: No peripheral edema Neuro: Grossly nonfocal LABS: TSH 1.290 12/09/2012 Triglyceride 84 08/13/2013 HDL Cholesterol 46 08/13/2013 LDL Chol, Clar[place]za 121 08/13/2013 Cholesterol, Total 184 08/13/2013 CBC: Hemoglobin (g/dL) Date Value 10/05/2023 13.6 Hematocrit (%) Date Value 10/05/2023 43.3 WBC (k/uL) Date Value 10/05/2023 10.87 Platelet Cou (more content not included)... Normal [facility] Basic Metabolic Profile (BMP )on 07-08-2024 BUN Normal 7-18 [facility] Comment on above: Result Comment: Canc elled via OM: Order cancelled - Patient discharged Performed By: #### L 100.0100, L500.2500 ####[facility] [address] [place], [address] BUN/CRE Normal 10-20 [facility] Comment on above: Result Comment: Canc elled via OM: Order cancelled - Patient discharged Performed By: #### L 100.0100, L500.2500 ####[facility] [address] [place], [address] CA,Total Normal 8.5-10.1 [facility] Comment on above: Result Comment: Canc elled via OM: Order cancelled - Patient discharged Performed By: #### L 100.0100, L500.2500 ####[facility] [address] [place], [address] CL Normal 98-107 [facility] Comment on above: Result Comment: Canc elled via OM: Order cancelled - Patient discharged Performed By: #### L 100.0100, L500.2500 ####[facility] [address] [place], [address] CO2 Normal 21.0-32.0 [facility] Comment on above: Result Comment: Canc elled via OM: Order cancelled - Patient discharged Performed By: #### L 100.0100, L500.2500 ####[facility] [address] [place], [address] CREAT,SERUM Normal 0.55-1.02 [facility] Comment on above: Result Comment: Canc elled via OM: Order cancelled - Patient discharged Performed By: #### L 100.0100, L500.2500 ####[facility] [address] [place], [address] EST GFR Normal >60 [facility] Comment on above: Result Comment: Canc elled via OM: Order cancelled - Patient discharged Performed By: #### L 100.0100, L500.2500 ####[facility] [address] [place], [address] EST GFR - AA Normal >60 [facility] Comment on above: Result Comment: Canc elled via OM: Order cancelled - Patient discharged Performed By: #### L 100.0100, L500.2500 ####[facility] [address] [place], [address] GAP Normal 5-15 [facility] Comment on above: Result Comment: Canc elled via OM: Order cancelled - Patient discharged Performed By: #### L 100.0100, L500.2500 ####[facility] [address] [place], [address] GLU Normal 74-106 [facility] Comment on above: Result Comment: Canc elled via OM: Order cancelled - Patient discharged Performed By: #### L 100.0100, L500.2500 ####[facility] [address] [place], [address] Potassium Normal 3.5-5.1 [facility] Comment on above: Result Comment: Canc elled via OM: Order cancelled - Patient discharged Performed By: #### L 100.0100, L500.2500 ####[facility] [address] [place], [address] Basic Metabolic Profile (BMP) Normal 136-145 [facility] Comment on above: Result Comment: Canc elled via OM: Order cancelled - Patient discharged Performed By: #### L 100.0100, L500.2500 ####[facility] [address] [place], [address] CBC W/Diff, Automatedon 02- Absolute Neut Normal 2.0-7.7 [facility] Comment on above: Result Comment: Canc elled via OM: Order cancelled - Patient discharged Performed By: #### L 100.0100, L500.2500 ####[facility] [address] [place], [address] HCT Normal 37-47 [facility] Comment on above: Result Comment: Canc elled via OM: Order cancelled - Patient discharged Performed By: #### L 100.0100, L500.2500 ####[facility] [address] [place], [address] HGB Normal 12.0-15.0 [facility] Comment on above: Result Comment: Canc elled via OM: Order cancelled - Patient discharged Performed By: #### L 100.0100, L500.2500 ####[facility] [address] [place], [address] MCH Normal 27.0-32.0 [facility] Comment on above: Result Comment: Canc elled via OM: Order cancelled - Patient discharged Performed By: #### L 100.0100, L500.2500 ####[facility] [address] [place], [address] MCHC Normal 32-36 [facility] Comment on above: Result Comment: Canc elled via OM: Order cancelled - Patient discharged Performed By: #### L 100.0100, L500.2500 ####[facility] [address] [place], [address] MCV Normal 81-99 [facility] Comment on above: Result Comment: Canc elled via OM: Order cancelled - Patient discharged Performed By: #### L 100.0100, L500.2500 ####[facility] [address] [place], [address] NEUT% Normal 47-70 [facility] Comment on above: Result Comment: Canc elled via OM: Order cancelled - Patient discharged Performed By: #### L 100.0100, L500.2500 ####[facility] [address] [place], [address] PLT Normal 150-450 [facility] Comment on above: Result Comment: Canc elled via OM: Order cancelled - Patient discharged Performed By: #### L 100.0100, L500.2500 ####[facility] [address] [place], [address] RBC Normal 4.2-5.4 [facility] Comment on above: Result Comment: Canc elled via OM: Order cancelled - Patient discharged Performed By: #### L 100.0100, L500.2500 ####[facility] [address] [place], [address] RDW CV Normal 11.6-14.6 [facility] Comment on above: Result Comment: Canc elled via OM: Order cancelled - Patient discharged Performed By: #### L 100.0100, L500.2500 ####[facility] [address] [place], [address] RDW SD Normal 35.1-43.9 [facility] Comment on above: Result Comment: Canc elled via OM: Order cancelled - Patient discharged Performed By: #### L 100.0100, L500.2500 ####[facility] [address] [place], [address] WBC Normal 4.4-11.0 [facility] Comment on above: Result Comment: Canc elled via OM: Order cancelled - Patient discharged Performed By: #### L 100.0100, L500.2500 ####[facility] [address] [place], [address] Basic Metabolic Profile (BMP )on 07-07-2024 BUN Normal 7-18 [facility] Comment on above: Result Comment: Canc elled via OM: Order cancelled - Patient discharged Performed By: #### L 100.0100, L500.2500 ####[facility] [address] [place], [address] BUN/CRE Normal 10-20 [facility] Comment on above: Result Comment: Canc elled via OM: Order cancelled - Patient discharged Performed By: #### L 100.0100, L500.2500 ####[facility] [address] [place], [address] CA,Total Normal 8.5-10.1 [facility] Comment on above: Result Comment: Canc elled via OM: Order cancelled - Patient discharged Performed By: #### L 100.0100, L500.2500 ####[facility] [address] [place], [address] CL Normal 98-107 [facility] Comment on above: Result Comment: Canc elled via OM: Order cancelled - Patient discharged Performed By: #### L 100.0100, L500.2500 ####[facility] [address] [place], [address] CO2 Normal 21.0-32.0 [facility] Comment on above: Result Comment: Canc elled via OM: Order cancelled - Patient discharged Performed By: #### L 100.0100, L500.2500 ####[facility] [address] [place], [address] CREAT,SERUM Normal 0.55-1.02 [facility] Comment on above: Result Comment: Canc elled via OM: Order cancelled - Patient discharged Performed By: #### L 100.0100, L500.2500 ####[facility] [address] [place], [address] EST GFR Normal >60 [facility] Comment on above: Result Comment: Canc elled via OM: Order cancelled - Patient discharged Performed By: #### L 100.0100, L500.2500 ####[facility] [address] [place], [address] EST GFR - AA Normal >60 [facility] Comment on above: Result Comment: Canc elled via OM: Order cancelled - Patient discharged Performed By: #### L 100.0100, L500.2500 ####[facility] [address] [place], [address] GAP Normal 5-15 [facility] Comment on above: Result Comment: Canc elled via OM: Order cancelled - Patient discharged Performed By: #### L 100.0100, L500.2500 ####[facility] [address] [place], [address] GLU Normal 74-106 [facility] Comment on above: Result Comment: Canc elled via OM: Order cancelled - Patient discharged Performed By: #### L 100.0100, L500.2500 ####[facility] [address] [place], [address] Potassium Normal 3.5-5.1 [facility] Comment on above: Result Comment: Canc elled via OM: Order cancelled - Patient discharged Performed By: #### L 100.0100, L500.2500 ####[facility] [address] [place], [address] Basic Metabolic Profile (BMP) Normal 136-145 [facility] Comment on above: Result Comment: Canc elled via OM: Order cancelled - Patient discharged Performed By: #### L 100.0100, L500.2500 ####[facility] [address] [place], [address] CBC W/Diff, Automatedon 02 PATH REV Reviewed Normal [facility] Comment on above: Result Comment: Neut rophilic leukocytosis.Clinical correlation necessary.Jordan Boswell M.D. 07/07/24 AMENDED REPORT 07/07/24 1337 PATH REV previously reported as: May foll Performed By: #### L 500.2500, L100.0100 ####[facility] [address] [place], [address] PATH REV Reviewed Normal [facility] Comment on above: Result Comment: Neut rophilic leukocytosis.Clinical correlation necessary.Jordan Boswell M.D. 07/07/24 AMENDED REPORT 07/07/24 1328 PATH REV previously reported as: May foll Performed By: #### L 500.2500, L100.0100 ####[facility] [address] [place], [address] PATH REV Reviewed Normal [facility] Comment on above: Result Comment: Neut rophilic leukocytosis.Clinical correlation necessary.Jordan Boswell M.D. 07/07/24 AMENDED REPORT 07/07/24 1326 PATH REV previously reported as: May foll Performed By: #### L 100.0100, L500.2500 ####[facility] [address] [place], [address] Absolute Neut Normal 2.0-7.7 [facility] Comment on above: Result Comment: Canc elled via OM: Order cancelled - Patient discharged Performed By: #### L 100.0100, L500.2500 ####[facility] [address] [place], [address] HCT Normal 37-47 [facility] Comment on above: Result Comment: Canc elled via OM: Order cancelled - Patient discharged Performed By: #### L 100.0100, L500.2500 ####[facility] [address] [place], [address] HGB Normal 12.0-15.0 [facility] Comment on above: Result Comment: Canc elled via OM: Order cancelled - Patient discharged Performed By: #### L 100.0100, L500.2500 ####[facility] [address] [place], [address] MCH Normal 27.0-32.0 [facility] Comment on above: Result Comment: Canc elled via OM: Order cancelled - Patient discharged Performed By: #### L 100.0100, L500.2500 ####[facility] [address] [place], [address] MCHC Normal 32-36 [facility] Comment on above: Result Comment: Canc elled via OM: Order cancelled - Patient discharged Performed By: #### L 100.0100, L500.2500 ####[facility] [address] [place], [address] MCV Normal 81-99 [facility] Comment on above: Result Comment: Canc elled via OM: Order cancelled - Patient discharged Performed By: #### L 100.0100, L500.2500 ####[facility] [address] [place], [address] NEUT% Normal 47-70 [facility] Comment on above: Result Comment: Canc elled via OM: Order cancelled - Patient discharged Performed By: #### L 100.0100, L500.2500 ####[facility] [address] [place], [address] PLT Normal 150-450 [facility] Comment on above: Result Comment: Canc elled via OM: Order cancelled - Patient discharged Performed By: #### L 100.0100, L500.2500 ####[facility] [address] [place], [address] RBC Normal 4.2-5.4 [facility] Comment on above: Result Comment: Canc elled via OM: Order cancelled - Patient discharged Performed By: #### L 100.0100, L500.2500 ####[facility] [address] [place], [address] RDW CV Normal 11.6-14.6 [facility] Comment on above: Result Comment: Canc elled via OM: Order cancelled - Patient discharged Performed By: #### L 100.0100, L500.2500 ####[facility] [address] [place], [address] RDW SD Normal 35.1-43.9 [facility] Comment on above: Result Comment: Canc elled via OM: Order cancelled - Patient discharged Performed By: #### L 100.0100, L500.2500 ####[facility] [address] [place], [address] WBC Normal 4.4-11.0 [facility] Comment on above: Result Comment: Canc elled via OM: Order cancelled - Patient discharged Performed By: #### L 100.0100, L500.2500 ####[facility] [address] [place], [address] Absolute lymphocyte countOrd ered By: Mamta Zavala on 07-06-2024 Lymphocytes Auto (Unsp spec) [#/Vol] 1.81 10*3/uL 0.83-4.51 [facility] Absolute neutrophil countOrd ered By: Mamta Zavala on 07-06-2024 Neutrophils (Bld) [#/Vol] 10.8 10*3/uL High 2.0-7.7 [facility] Automated lymphocyte count a s percentage of total leukocytesOrdered By: Mamta Zavala on 07-06-2024 Lymphocytes/100 WBC Auto (Unsp spec) 12.0 % Low 19-41 [facility] Basic Metabolic Profile (BMP )on 07-06-2024 BUN/CRE 48.9 RATIO High 10-20 [facility] Comment on above: Performed By: #### L 500.2500, L100.0100 ####[facility] [address] [place], [address] CA,Total 8.9 mg/dL Normal 8.5-10.1 [facility] Comment on above: Performed By: #### L 500.2500, L100.0100 ####[facility] [address] [place], [address] Chloride [Moles/Vol] 98 mmol/L Normal 98-107 [facility] Comment on above: Performed By: #### L 500.2500, L100.0100 ####[facility] [address] [place], [address] CO2 [Moles/Vol] 33.0 mmol/L High 21.0-32.0 [facility] Comment on above: Performed By: #### L 500.2500, L100.0100 ####[facility] [address] [place], [address] Creatinine [Mass/Vol] 0.61 mg/dL Normal 0.55-1.02 [facility] Comment on above: Result Comment: The validity of the calculated GFR GFRAA in patients over70 years has not been determined. Clinical correlation isessential. Performed By: #### L 500.2500, L100.0100 ####[facility] [address] [place], [address] ECRCL 57.21 ml/min Normal [facility] Comment on above: Performed By: #### L 500.2500, L100.0100 ####[facility] [address] [place], [address] EST GFR - AA 125 mL/min Normal >60 [facility] Comment on above: Result Comment: Afri can [place] GFR Calc Performed By: #### L 500.2500, L100.0100 ####[facility] [address] [place], [address] GAP 4 Low 5-15 [facility] Comment on above: Performed By: #### L 500.2500, L100.0100 ####[facility] [address] [place], [address] GFR/1.73 sq M.predicted among non-blacks MDRD (S/P/Bld) [Vol rate/Area] 103 mL/min/{1.73_m2} Normal >60 [facility] Comment on above: Result Comment: Non- GFR Calc Performed By: #### L 500.2500, L100.0100 ####[facility] [address] [place], [address] Glucose [Mass/Vol] 105 mg/dL Normal 74-106 [facility] Comment on above: Result Comment: Fast ing Glucose result from 100 to 125 mg/dLsuggests IMPAIRED HOMEOSTASIS per A.D.A. criteria. Performed By: #### L 500.2500, L100.0100 ####[facility] [address] [place], [address] Potassium [Moles/Vol] 3.7 mmol/L Normal 3.5-5.1 [facility] Comment on above: Performed By: #### L 500.2500, L100.0100 ####[facility] [address] [place], [address] Sodium [Moles/Vol] 135 mmol/L Low 136-145 [facility] Comment on above: Performed By: #### L 500.2500, L100.0100 ####[facility] [address] [place], [address] Urea nitrogen [Mass/Vol] 30 mg/dL High 7-18 [facility] Comment on above: Performed By: #### L 500.2500, L100.0100 ####[facility] [address] [place], [address] Basophil percentageOrdered B y: Mamta Zavala on 07-06-2024 Basophils/100 WBC (Bld) 0.1 % 0-1 [facility] Blood manual differential co mment interpretation (narrative result)Ordered By: Mamta Zavala on 07-06-2024 Manual differential comment Mickey (Bld) [Interp] SCANNED [facility] Blood urea nitrogen (BUN)/cr eatinine ratioOrdered By: Mamta Zavala on 07-06-2024 Urea nitrogen/Creatinine [Mass ratio] 48.9 mg/mg High 10-20 [facility] Carbon dioxide measurementOr dered By: Mamta Zavala on 07-06-2024 CO2 [Moles/Vol] 33.0 mmol/L High 21.0-32.0 [facility] Chloride measurementOrdered By: Mamta Zavala on 07-06-2024 Chloride [Moles/Vol] 98 mmol/L 98-107 [facility] Dacrocytes LM Ql (Bld)Ordere d By: Mamta Zavala on 07-06-2024 Tear Drop Cells 1+ [facility] Discharge Instructionon 02-0 Discharge Instruction Normal [facility] Eosinophil percentageOrdered By: Mamta Zavala on 07-06-2024 Eosinophils/100 WBC (Bld) 1.7 % 0-5 [facility] Erythrocyte distribution wid th ratioOrdered By: Mamta Zavala on 07-06-2024 Erythrocyte distribution width (RBC) [Ratio] 15.9 % High 11.6-14.6 [facility] Erythrocyte distribution wid th standard deviationOrdered By: Mamta Zavala on 07-06-2024 Erythrocyte distribution width (RBC) [Entitic vol] 50.4 fL High 35.1-43.9 [facility] Erythrocyte distribution width (RBC) [Ratio] 50.4 fl High 35.1-43.9 [facility] Estimated glomerular filtrat ion rate (GFR) AmericanOrdered By: Mamta Zavala on 07-06-2024 Estimated GFR (MDRD) Amer 125 mL/min >60 [facility] Comment on above: GFR Calc Estimation of creatinine jesus alberto aranceOrdered By: Mamta Zavala on 07-06-2024 Estimated Creatinine Clearance Calc 57.21 ml/min [facility] Glomerular filtration rate ( GFR) estimationOrdered By: Mamta Zavala on 07-06-2024 Estimated GFR (MDRD) Non-Af Amer 103 mL/min >60 [facility] Comment on above: Non- GFR Calc GFR/1.73 sq M.predicted among non-blacks MDRD (S/P/Bld) [Vol rate/Area] 103 mL/min/{1.73_m2} >60 [facility] Comment on above: Non- GFR Calc Glucose measurementOrdered B y: Mamta Zavala on 07-06-2024 Glucose [Mass/Vol] 105 mg/dL 74-106 [facility] Comment on above: Fasting Glucose resu lt from 100 to 125 mg/dL suggests IMPAIRED HOMEOSTASIS per A.D.A. criteria. Hematocrit Auto (Bld) [Volum e fraction]Ordered By: Mamta Zavala on 07-06-2024 Hematocrit (Bld) [Volume fraction] 42.7 % 37-47 [facility] Hemoglobin measurementOrdere d By: Mamta Zavala on 07-06-2024 Hemoglobin (Bld) [Mass/Vol] 13.5 g/dL 12.0-15. 0 [facility] Immature granulocytes/100 WB C Auto (Bld)Ordered By: Mamta Zavala on 07-06-2024 Immature granulocytes/100 WBC (Bld) 0.500 % 0.0-0.9 [facility] Comment on above: IG% - Immature Granu locytes (promyelocytes, myelocytes and metamyelocytes) > 1% indicates that a LEFT SHIFT is Present. Laboratory - Hematology and Cell countsOrdered By: Mamta Zavala on 07-06-2024 Anisocytosis Ql (Bld) 1+ [facility] Lymphocytes Auto (Unsp spec) [#/Vol]Ordered By: Mamta Zavala on 07-06-2024 Lymphocytes (Bld) [#/Vol] 1.81 10*3/uL 0.83-4.5 1 [facility] Lymphocytes/100 WBC Auto (Un sp spec)Ordered By: Mamta Zavala on 07-06-2024 Lymphocytes/100 WBC (Bld) 12.0 % Low 19-41 [facility] MCV (mean corpuscular volume ) determinationOrdered By: Mamta Zavala on 07-06-2024 MCV (RBC) [Entitic vol] 87.3 fL 81-99 [facility] Manual differential comment Mickey (Bld) [Interp]Ordered By: Mamta Zavala on 07-06-2024 Differential Comment SCANNED [facility] Mean corpuscular hemoglobin (MCH) determinationOrdered By: Mamta Zavala on 07-06-2024 MCH (RBC) [Entitic mass] 27.6 pg 27.0-32.0 [facility] Mean corpuscular hemoglobin concentration (MCHC) determinationOrdered By: Mamta Zavala on 07-06-2024 MCHC (RBC) [Mass/Vol] 31.6 g/dL Low 32-36 [facility] Mean platelet volume determi nationOrdered By: Mamta Zavala on 07-06-2024 Platelet mean volume (Bld) [Entitic vol] 9.6 fL 6.2-12.0 [facility] Monocyte percentageOrdered B y: Mamta Zavala on 07-06-2024 Monocytes/100 WBC (Bld) 14.0 % High 0-10 [facility] Neutrophil percentageOrdered By: Mamta Zavala on 07-06-2024 Neutrophils/100 WBC (Bld) 71.7 % High 47-70 [facility] Nucleated red blood cell per centageOrdered By: Mamta Zavala on 07-06-2024 Nucleated RBC/100 WBC (Bld) [Ratio] 0 % 0-5 [facility] Pathologist review Mickey (Unsp spec) [Interp]Ordered By: Mamta Zavala on 07-06-2024 Differential Pathologist's Review Reviewed [facility] Comment on above: Previous reported re sult: Mar wright Edited by: DON on 07/07/24:1328Neutrophilic leukocytosis.Clinical correlation necessary.Jordan Boswell M.D. 07/07/24 AMENDED REPORT 07/07/24 1328 PATH REV previously reported as: Mar wright Platelet countOrdered By: Emmaneulle Zavala on 07-06-2024 Platelets (Bld) [#/Vol] 375 10*3/uL 150-450 [facility] Platelet estimateOrdered By: Mamta Zavala on 07-06-2024 Platelets LM Ql (Bld) ADEQUATE ADEQ [facility] Platelets LM Ql (Bld)Ordered By: Mamta Zavala on 07-06-2024 Platelet Estimate ADEQUATE ADEQ [facility] Potassium measurementOrdered By: Mamta Zavala on 07-06-2024 Potassium [Moles/Vol] 3.7 mmol/L 3.5-5.1 [facility] RBC Auto (Bld) [#/Vol]Ordere d By: Mamta Zavala on 07-06-2024 RBC (Bld) [#/Vol] 4.89 10*6/uL 4.2-5.4 [facility] Review by pathologistOrdered By: Mamta Zavala on 07-06-2024 Pathologist review Mickey (Unsp spec) [Interp] Reviewed [facility] Comment on above: Previous reported re sult: Mar wright Edited by: DON on 07/07/24:1328Neutrophilic leukocytosis.Clinical correlation necessary.Jordan Boswell M.D. 07/07/24 AMENDED REPORT 07/07/24 1328 PATH REV previously reported as: [facility] w[facility] Serum anion gap measurementO rdered By: Mamta Zavala on 07-06-2024 Anion gap [Moles/Vol] 4 mmol/L Low 5-15 [facility] Serum or plasma calcium juanpablo urement (mass/volume)Ordered By: Mamta Zavala on 07-06-2024 Calcium [Mass/Vol] 8.9 mg/dL 8.5-10.1 [facility] Serum or plasma creatinine m easurement (mass/volume)Ordered By: Mamta Zavala on 07-06-2024 Creatinine [Mass/Vol] 0.61 mg/dL 0.55-1.02 [facility] Comment on above: The validity of the calculated GFR & GFRAA in patients over 70 years has not been determined. Clinical correlation is essential. Serum or plasma urea nitroge n measurement (mass/volume)Ordered By: Mamta Zavala on 07-06-2024 Urea nitrogen [Mass/Vol] 30 mg/dL High 7-18 [facility] Sodium levelOrdered By: Mamta Zavala on 07-06-2024 Sodium [Moles/Vol] 135 mmol/L Low 136-145 [facility] Target cell detectionOrdered By: Mamta Zavala on 07-06-2024 Target cells LM Ql (Bld) RARE [facility] Target cells LM Ql (Bld)Orde red By: Mamta Zavala on 07-06-2024 Target Cells RARE [facility] Teardrop cell detectionOrder ed By: Mamta Zavala on 07-06-2024 Dacrocytes LM Ql (Bld) 1+ [facility] White blood cell (WBC) count Ordered By: Mamta Zavala on 07-06-2024 WBC (Bld) [#/Vol] 15.0 10*3/uL High 4.4-11.0 [facility] Basic Metabolic Profile (BMP )on 07-05-2024 BUN/CRE 43.6 RATIO High 10-20 [facility] Comment on above: Performed By: #### L 100.0100, L500.2500 ####[facility] [address] [place], [address] CA,Total 9.2 mg/dL Normal 8.5-10.1 [facility] Comment on above: Performed By: #### L 100.0100, L500.2500 ####[facility] [address] [place], [address] Chloride [Moles/Vol] 98 mmol/L Normal 98-107 [facility] Comment on above: Performed By: #### L 100.0100, L500.2500 ####[facility] [address] [place], [address] CO2 [Moles/Vol] 34.0 mmol/L High 21.0-32.0 [facility] Comment on above: Performed By: #### L 100.0100, L500.2500 ####[facility] [address] [place], [address] Creatinine [Mass/Vol] 0.73 mg/dL Normal 0.55-1.02 [facility] Comment on above: Result Comment: The validity of the calculated GFR GFRAA in patients over70 years has not been determined. Clinical correlation isessential. Performed By: #### L 100.0100, L500.2500 ####[facility] [address] [place], [address] ECRCL 57.42 ml/min Normal [facility] Comment on above: Performed By: #### L 100.0100, L500.2500 ####[facility] [address] [place], [address] EST GFR - AA 101 mL/min Normal >60 [facility] Comment on above: Result Comment: Afri can [place] GFR Calc Performed By: #### L 100.0100, L500.2500 ####[facility] [address] [place], [address] GAP 5 Normal 5-15 [facility] Comment on above: Performed By: #### L 100.0100, L500.2500 ####[facility] [address] [place], [address] GFR/1.73 sq M.predicted among non-blacks MDRD (S/P/Bld) [Vol rate/Area] 84 mL/min/{1.73_m2} Normal >60 [facility] Comment on above: Result Comment: Non- GFR Calc Performed By: #### L 100.0100, L500.2500 ####[facility] [address] [place], [address] Glucose [Mass/Vol] 106 mg/dL Normal 74-106 [facility] Comment on above: Result Comment: Fast ing Glucose result from 100 to 125 mg/dLsuggests IMPAIRED HOMEOSTASIS per A.D.A. criteria. Performed By: #### L 100.0100, L500.2500 ####[facility] [address] [place], [address] Potassium [Moles/Vol] 3.6 mmol/L Normal 3.5-5.1 [facility] Comment on above: Performed By: #### L 100.0100, L500.2500 ####[facility] [address] [place], [address] Sodium [Moles/Vol] 136 mmol/L Normal 136-145 [facility] Comment on above: Performed By: #### L 100.0100, L500.2500 ####[facility] [address] [place], [address] Urea nitrogen [Mass/Vol] 32 mg/dL High 7-18 [facility] Comment on above: Performed By: #### L 100.0100, L500.2500 ####[facility] [address] [place], [address] Blood schistocyte detection by light microscopyOrdered By: Mamta Zavala on 07-05-2024 Schistocytes LM Ql (Bld) RARE [facility] Blood vacuolated neutrophils detection by light microscopyOrdered By: Mamta Zavala on 07-05-2024 Neutrophils.vacuolated LM Ql (Bld) 1+ [facility] Neutrophils.vacuolated LM Ql (Bld)Ordered By: Mamta Zavala on 07-05-2024 Toxic Vacuolation 1+ [facility] Ovalocyte detectionOrdered B y: Mamta Zavala on 07-05-2024 Ovalocytes LM Ql (Bld) 1+ [facility] Ovalocytes LM Ql (Bld)Ordere d By: Mamta Zavala on 07-05-2024 Ovalocytes 1+ [facility] Schistocytes LM Ql (Bld)Orde red By: Mamta Zavala on 07-05-2024 Schistocytes RARE [facility] Basic Metabolic Profile (BMP )on 07-04-2024 BUN/CRE 46.8 RATIO High 10-20 [facility] Comment on above: Performed By: #### L 500.2500, L100.0100 ####[facility] [address] [place], [address] CA,Total 9.8 mg/dL Normal 8.5-10.1 [facility] Comment on above: Performed By: #### L 500.2500, L100.0100 ####[facility] [address] [place], [address] Chloride [Moles/Vol] 99 mmol/L Normal 98-107 [facility] Comment on above: Performed By: #### L 500.2500, L100.0100 ####[facility] [address] [place], [address] CO2 [Moles/Vol] 33.0 mmol/L High 21.0-32.0 [facility] Comment on above: Performed By: #### L 500.2500, L100.0100 ####[facility] [address] [place], [address] Creatinine [Mass/Vol] 0.79 mg/dL Normal 0.55-1.02 [facility] Comment on above: Result Comment: The validity of the calculated GFR GFRAA in patients over70 years has not been determined. Clinical correlation isessential. Performed By: #### L 500.2500, L100.0100 ####[facility] [address] [place], [address] ECRCL 57.97 ml/min Normal [facility] Comment on above: Performed By: #### L 500.2500, L100.0100 ####[facility] [address] [place], [address] EST GFR - AA 93 mL/min Normal >60 [facility] Comment on above: Result Comment: Afri can [place] GFR Calc Performed By: #### L 500.2500, L100.0100 ####[facility] [address] [place], [address] GAP 7 Normal 5-15 [facility] Comment on above: Performed By: #### L 500.2500, L100.0100 ####[facility] [address] [place], [address] GFR/1.73 sq M.predicted among non-blacks MDRD (S/P/Bld) [Vol rate/Area] 77 mL/min/{1.73_m2} Normal >60 [facility] Comment on above: Result Comment: Non- GFR Calc Performed By: #### L 500.2500, L100.0100 ####[facility] [address] [place], [address] Glucose [Mass/Vol] 125 mg/dL High 74-106 [facility] Comment on above: Result Comment: Fast ing Glucose result from 100 to 125 mg/dLsuggests IMPAIRED HOMEOSTASIS per A.D.A. criteria. Performed By: #### L 500.2500, L100.0100 ####[facility] [address] [place], [address] Potassium [Moles/Vol] 4.0 mmol/L Normal 3.5-5.1 [facility] Comment on above: Performed By: #### L 500.2500, L100.0100 ####[facility] [address] [place], [address] Sodium [Moles/Vol] 138 mmol/L Normal 136-145 [facility] Comment on above: Performed By: #### L 500.2500, L100.0100 ####[facility] [address] [place], [address] Urea nitrogen [Mass/Vol] 37 mg/dL High 7-18 [facility] Comment on above: Performed By: #### L 500.2500, L100.0100 ####[facility] [address] [place], [address] CNPGay 07-04-2024 RAOULN Telephone ([facility]) MAKENNA ANDRE ([id number]) 1955 F Date Time Provider Department 07/04/24 AMOL GODWIN [facility] During your visit today, we recorded the following information about you: Amol Godwin MD 07/04/2024 12:53 PM Signed Called patient and discussed how she is doing. She is still in hospital with plans on being discharge today. She was hospitalized for acute on chronic hypoxic respiratory in which it appears was volume overload as she was treated with intravenous lasix. She believes it might have been because she self tapered off her home diuretics and wasn't taking it like she should have been. She feels much improved and is being discharge home today. She remains on Tyvaso 64 mcg QID with good compliance and was getting it regularly during her hospital stay. Faustina, can you try to move up her appointment with you to sometime next week? Allergies As of Date: 07/04/2024 Noted Allergy Reaction DARVOCET-N 100 (PROPOXYPHENE N-AC*08/27/2007 16 - Unknown Comments: numbness PENICILLINS 10/07/2012 4 - Hives Date Reviewed: 07/04/2024 Reviewed by: Amol Godwin MD - Fully Assessed Reason for Visit: Results [95] Patient Update [1234] Prescriptions as of 07/04/2024 - fluticasone-salmetero l (ADVAIR DISKUS) 500-50 mcg/dose dsdv Inhale 1 Puff as instructed two times a day. Rinse and gargle mouth with water after each use. - albuterol HFA (PROVENTIL HFA, VENTOLIN HFA) 90 mcg/actuation inhaler Inhale 2 Puffs as instructed every 6 hours as needed for wheezing/shortness of breath. - TYVASO DPI 64 mcg dry powder inhaler Inhale 64 mcg as instructed four times daily. - RED BEET ROOT-SOUR [place]NON EXT ORAL Take by mouth. - OXYGEN, HOME THERAPY, Inhale 6-10 L/min as instructed continuous. - dilTIAZem LA (CARDIZEM LA) 240 mg 24 hr tablet Take 240 mg by mouth once daily. - acetaminophen (TYLENOL ARTHRITIS PAIN) 650 mg CR tablet Take 1 tablet by mouth every 8 hours as needed for pain. - cyanocobalamin (VITAMIN B-12) 1,000 mcg tab Take 1,000 mcg by mouth once daily. - Chromium Picolinate 200 mcg tab Take 1 tablet by mouth once daily. - vitamin E, dl,tocopheryl acet, (VITAMIN E, DL, ACETATE,) 180 mg (400 unit) capsule Take 1 capsule by mouth once daily. - Glucosamine-Chondroit in (OSTEO BI-FLEX) 250-200 mg tab Take 2 tablets by mouth once daily. - potassium chloride ER (KLOR-CON) 20 mEq tablet Take 1 tablet by mouth once daily. - calcium carb-D3-mag ox-zinc ox (NISH MAG ZINC PLUS D3) 333 mg-133 unit -133 mg-5 mg tab Take 1 tablet by mouth once daily. - levothyroxine (SYNTHROID) 50 mcg tablet Take 1 tablet by mouth daily before breakfast. - pravastatin (PRAVACHOL) 20 mg tablet Take 1 tablet by mouth once daily. - turmeric root extract 500 mg cap Take 1 capsule by mouth once daily. - vit A and D3 in cod liver oil 1,250-135 unit cap Take 1 capsule by mouth once daily. - furosemide (LASIX) 40 mg tablet Take 1 tablet by mouth once daily. Patient not taking daily-will try to take at least days a week - Echinacea 500 mg cap Take 1 capsule by mouth two times a day. - lisinopril 10 mg tablet Take 1 tablet by mouth once daily. - Cholecalciferol, Vitamin D3, 2,000 unit cap Take 1 tablet by mouth once daily. - vitamin A-ascorbic acid-vitamin E-minerals (OCUVITE) Tab Take 1 tablet by mouth once daily. - DSJ-Vidqmmntc-Qatiied nophen (ALLERGY SINUS PE) 2-5-325 mg ORAL Tab Take by mouth as needed. - GARLIC 1,000 MG CAP Take one tablet daily. - aspirin(ADULT LOW DOSE ASPIRIN 81 MG TAB, DELAYED RELEASE) Take one(1) tablet daily. - multivitamins(DAILY MULTIVITAMIN TAB) Take one(1) tablet daily. 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] 08/27/2007 Class: Chronic FAMILY HX ISCHEM HEART DIS [Z82.49] OBESITY NOS [E66.9] IMPAIRED FASTING GLUCOSE [R73.01] 08/27/2007 Screening for colon cancer [Z12.11] 10/07/2012 At risk for osteoporosis [Z91.89] 08/25/2013 Acute respiratory failure with hypoxia (HCC) [J*10/02/2023 Pulmonary hypertension, unspecified (HCC) [I27.*04/30/2024 Encounter Status:Closed by AMOL GODWIN on 07/04/24 Normal [facility] Basic Metabolic Profile (BMP )on 07-03-2024 BUN/CRE 38.2 RATIO High 10-20 [facility] Comment on above: Performed By: #### L 500.2500, L100.0100 ####[facility] [address] [place], [address] CA,Total 9.8 mg/dL Normal 8.5-10.1 [facility] Comment on above: Performed By: #### L 500.2500, L100.0100 ####[facility] [address] [place], [address] Chloride [Moles/Vol] 97 mmol/L Low 98-107 [facility] Comment on above: Performed By: #### L 500.2500, L100.0100 ####[facility] [address] [place], [address] CO2 [Moles/Vol] 35.0 mmol/L High 21.0-32.0 [facility] Comment on above: Performed By: #### L 500.2500, L100.0100 ####[facility] [address] [place], [address] Creatinine [Mass/Vol] 0.71 mg/dL Normal 0.55-1.02 [facility] Comment on above: Result Comment: The validity of the calculated GFR GFRAA in patients over70 years has not been determined. Clinical correlation isessential. Performed By: #### L 500.2500, L100.0100 ####[facility] [address] [place], [address] ECRCL 58.27 ml/min Normal [facility] Comment on above: Performed By: #### L 500.2500, L100.0100 ####[facility] [address] [place], [address] EST GFR - AA 106 mL/min Normal >60 [facility] Comment on above: Result Comment: Afri can [place] GFR Calc Performed By: #### L 500.2500, L100.0100 ####[facility] [address] [place], [address] GAP 8 Normal 5-15 [facility] Comment on above: Performed By: #### L 500.2500, L100.0100 ####[facility] [address] [place], [address] GFR/1.73 sq M.predicted among non-blacks MDRD (S/P/Bld) [Vol rate/Area] 87 mL/min/{1.73_m2} Normal >60 [facility] Comment on above: Result Comment: Non- GFR Calc Performed By: #### L 500.2500, L100.0100 ####[facility] [address] [place], [address] Glucose [Mass/Vol] 178 mg/dL High 74-106 [facility] Comment on above: Result Comment: Fast ing Glucose result greater than or equal to 126 mg/dLsuggests DIABETES MELLITUS per A.D.A. criteria. Performed By: #### L 500.2500, L100.0100 ####[facility] [address] [place], [address] Potassium [Moles/Vol] 3.3 mmol/L Low 3.5-5.1 [facility] Comment on above: Performed By: #### L 500.2500, L100.0100 ####[facility] [address] [place], [address] Sodium [Moles/Vol] 140 mmol/L Normal 136-145 [facility] Comment on above: Performed By: #### L 500.2500, L100.0100 ####[facility] [address] [place], [address] Urea nitrogen [Mass/Vol] 27 mg/dL High 7-18 [facility] Comment on above: Performed By: #### L 500.2500, L100.0100 ####[facility] [address] [place], [address] CBC W/Diff, Automatedon 02-0 6-2025 Absolute Lymph 0.32 X10 3/uL Low 0.83-4.51 [facility] Comment on above: Performed By: #### L 500.2500, L100.0100 ####[facility] [address] [place], [address] Absolute Neut 8.9 X10 3/uL High 2.0-7.7 [facility] Comment on above: Performed By: #### L 500.2500, L100.0100 ####[facility] [address] [place], [address] Basophils/100 WBC (Bld) 0.1 % Normal 0-1 [facility] Comment on above: Performed By: #### L 500.2500, L100.0100 ####[facility] [address] [place], [address] Eosinophils/100 WBC (Bld) 0.0 % Normal 0-5 [facility] Comment on above: Performed By: #### L 500.2500, L100.0100 ####[facility] [address] [place], [address] Erythrocyte distribution width (RBC) [Ratio] 15.6 % High 11.6-14.6 [facility] Comment on above: Performed By: #### L 500.2500, L100.0100 ####[facility] [address] [place], [address] Hematocrit (Bld) [Volume fraction] 43.0 % Normal 37-47 [facility] Comment on above: Performed By: #### L 500.2500, L100.0100 ####[facility] [address] [place], [address] Hemoglobin (Bld) [Mass/Vol] 13.3 g/dL Normal 12.0-15. 0 [facility] Comment on above: Performed By: #### L 500.2500, L100.0100 ####[facility] [address] [place], [address] IG% 0.900 Normal 0.0-0.9 [facility] Comment on above: Result Comment: IG% - Immature Granulocytes (promyelocytes, myelocytes andmetamyelocytes) > 1% indicates that a LEFT SHIFT is Present. Performed By: #### L 500.2500, L100.0100 ####[facility] [address] [place], [address] Lymphocytes/100 WBC (Bld) 3.2 % Low 19-41 [facility] Comment on above: Performed By: #### L 500.2500, L100.0100 ####[facility] [address] [place], [address] MCH (RBC) [Entitic mass] 27.8 pg Normal 27.0-32.0 [facility] Comment on above: Performed By: #### L 500.2500, L100.0100 ####[facility] [address] [place], [address] MCHC (RBC) [Mass/Vol] 30.9 g/dL Low 32-36 [facility] Comment on above: Performed By: #### L 500.2500, L100.0100 ####[facility] [address] [place], [address] MCV (RBC) [Entitic vol] 89.8 fL Normal 81-99 [facility] Comment on above: Performed By: #### L 500.2500, L100.0100 ####[facility] [address] [place], [address] Monocytes/100 WBC (Bld) 5.6 % Normal 0-10 [facility] Comment on above: Performed By: #### L 500.2500, L100.0100 ####[facility] [address] [place], [address] Neutrophils/100 WBC (Bld) 90.2 % High 47-70 [facility] Comment on above: Performed By: #### L 500.2500, L100.0100 ####[facility] [address] [place], [address] Nucleated RBC (Bld) [#/Vol] 0 10*3/uL Normal 0-5 [facility] Comment on above: Performed By: #### L 500.2500, L100.0100 ####[facility] [address] [place], [address] Platelet mean volume (Bld) [Entitic vol] 9.5 fL Normal 6.2-12.0 [facility] Comment on above: Performed By: #### L 500.2500, L100.0100 ####[facility] [address] [place], [address] Platelets (Bld) [#/Vol] 395 10*3/uL Normal 150-450 [facility] Comment on above: Performed By: #### L 500.2500, L100.0100 ####[facility] [address] [place], [address] RBC (Bld) [#/Vol] 4.79 10*6/uL Normal 4.2-5.4 [facility] Comment on above: Performed By: #### L 500.2500, L100.0100 ####[facility] [address] [place], [address] RDW SD 51.0 fl High 35.1-43.9 [facility] Comment on above: Performed By: #### L 500.2500, L100.0100 ####[facility] [address] [place], [address] WBC (Bld) [#/Vol] 9.9 10*3/uL Normal 4.4-11.0 [facility] Comment on above: Performed By: #### L 500.2500, L100.0100 ####[facility] [address] [place], [address] Culture, Blood (WB)on 2024 CUB Blood cultures x2, from two different sites No growth in 5 days. Normal [facility] Comment on above: Performed By: #### L 503.6620, M200.1000, L100.0100, L503.6005 ####[facility] [address] [place], [address] Basic Metabolic Profile (BMP )on 07-02-2024 BUN/CRE 29.2 RATIO High 10-20 [facility] Comment on above: Performed By: #### L 100.0100, L500.2500 ####[facility] [address] [place], [address] CA,Total 9.6 mg/dL Normal 8.5-10.1 [facility] Comment on above: Performed By: #### L 100.0100, L500.2500 ####[facility] [address] [place], [address] Chloride [Moles/Vol] 97 mmol/L Low 98-107 [facility] Comment on above: Performed By: #### L 100.0100, L500.2500 ####[facility] [address] [place], [address] CO2 [Moles/Vol] 38.0 mmol/L High 21.0-32.0 [facility] Comment on above: Performed By: #### L 100.0100, L500.2500 ####[facility] [address] [place], [address] Creatinine [Mass/Vol] 0.75 mg/dL Normal 0.55-1.02 [facility] Comment on above: Result Comment: The validity of the calculated GFR GFRAA in patients over70 years has not been determined. Clinical correlation isessential. Performed By: #### L 100.0100, L500.2500 ####[facility] [address] [place], [address] ECRCL 59.08 ml/min Normal [facility] Comment on above: Performed By: #### L 100.0100, L500.2500 ####[facility] [address] [place], [address] EST GFR - AA 98 mL/min Normal >60 [facility] Comment on above: Result Comment: Afri can [place] GFR Calc Performed By: #### L 100.0100, L500.2500 ####[facility] [address] [place], [address] GAP 6 Normal 5-15 [facility] Comment on above: Performed By: #### L 100.0100, L500.2500 ####[facility] [address] [place], [address] GFR/1.73 sq M.predicted among non-blacks MDRD (S/P/Bld) [Vol rate/Area] 81 mL/min/{1.73_m2} Normal >60 [facility] Comment on above: Result Comment: Non- GFR Calc Performed By: #### L 100.0100, L500.2500 ####[facility] [address] [place], [address] Glucose [Mass/Vol] 170 mg/dL High 74-106 [facility] Comment on above: Result Comment: Fast ing Glucose result greater than or equal to 126 mg/dLsuggests DIABETES MELLITUS per A.D.A. criteria. Performed By: #### L 100.0100, L500.2500 ####[facility] [address] [place], [address] Potassium [Moles/Vol] 3.7 mmol/L Normal 3.5-5.1 [facility] Comment on above: Performed By: #### L 100.0100, L500.2500 ####[facility] [address] [place], [address] Sodium [Moles/Vol] 141 mmol/L Normal 136-145 [facility] Comment on above: Performed By: #### L 100.0100, L500.2500 ####[facility] [address] [place], [address] Urea nitrogen [Mass/Vol] 22 mg/dL High 7-18 [facility] Comment on above: Performed By: #### L 100.0100, L500.2500 ####[facility] [address] [place], [address] CBC W/Diff, Automatedon 02-0 5-2024 Absolute Lymph 0.35 X10 3/uL Low 0.83-4.51 [facility] Comment on above: Performed By: #### L 100.0100, L500.2500 ####[facility] [address] [place], [address] Absolute Neut 8.8 X10 3/uL High 2.0-7.7 [facility] Comment on above: Performed By: #### L 100.0100, L500.2500 ####[facility] [address] [place], [address] Basophils/100 WBC (Bld) 0.0 % Normal 0-1 [facility] Comment on above: Performed By: #### L 100.0100, L500.2500 ####[facility] [address] [place], [address] Eosinophils/100 WBC (Bld) 0.1 % Normal 0-5 [facility] Comment on above: Performed By: #### L 100.0100, L500.2500 ####[facility] [address] [place], [address] Erythrocyte distribution width (RBC) [Ratio] 16.0 % High 11.6-14.6 [facility] Comment on above: Performed By: #### L 100.0100, L500.2500 ####[facility] [address] [place], [address] Hematocrit (Bld) [Volume fraction] 38.8 % Normal 37-47 [facility] Comment on above: Performed By: #### L 100.0100, L500.2500 ####[facility] [address] [place], [address] Hemoglobin (Bld) [Mass/Vol] 11.5 g/dL Low 12.0-15. 0 [facility] Comment on above: Performed By: #### L 100.0100, L500.2500 ####[facility] [address] [place], [address] IG% 0.600 Normal 0.0-0.9 [facility] Comment on above: Result Comment: IG% - Immature Granulocytes (promyelocytes, myelocytes andmetamyelocytes) > 1% indicates that a LEFT SHIFT is Present. Performed By: #### L 100.0100, L500.2500 ####[facility] [address] [place], [address] Lymphocytes/100 WBC (Bld) 3.6 % Low 19-41 [facility] Comment on above: Performed By: #### L 100.0100, L500.2500 ####[facility] [address] [place], [address] MCH (RBC) [Entitic mass] 26.9 pg Low 27.0-32.0 [facility] Comment on above: Performed By: #### L 100.0100, L500.2500 ####[facility] [address] [place], [address] MCHC (RBC) [Mass/Vol] 29.6 g/dL Low 32-36 [facility] Comment on above: Performed By: #### L 100.0100, L500.2500 ####[facility] [address] [place], [address] MCV (RBC) [Entitic vol] 90.7 fL Normal 81-99 [facility] Comment on above: Performed By: #### L 100.0100, L500.2500 ####[facility] [address] [place], [address] Monocytes/100 WBC (Bld) 4.9 % Normal 0-10 [facility] Comment on above: Performed By: #### L 100.0100, L500.2500 ####[facility] [address] [place], [address] Neutrophils/100 WBC (Bld) 90.8 % High 47-70 [facility] Comment on above: Performed By: #### L 100.0100, L500.2500 ####[facility] [address] [place], [address] Nucleated RBC (Bld) [#/Vol] 0 10*3/uL Normal 0-5 [facility] Comment on above: Performed By: #### L 100.0100, L500.2500 ####[facility] [address] [place], [address] Platelet mean volume (Bld) [Entitic vol] 9.0 fL Normal 6.2-12.0 [facility] Comment on above: Performed By: #### L 100.0100, L500.2500 ####[facility] [address] [place], [address] Platelets (Bld) [#/Vol] 353 10*3/uL Normal 150-450 [facility] Comment on above: Performed By: #### L 100.0100, L500.2500 ####[facility] [address] [place], [address] RBC (Bld) [#/Vol] 4.28 10*6/uL Normal 4.2-5.4 [facility] Comment on above: Performed By: #### L 100.0100, L500.2500 ####[facility] [address] [place], [address] RDW SD 53.3 fl High 35.1-43.9 [facility] Comment on above: Performed By: #### L 100.0100, L500.2500 ####[facility] [address] [place], [address] WBC (Bld) [#/Vol] 9.6 10*3/uL Normal 4.4-11.0 [facility] Comment on above: Performed By: #### L 100.0100, L500.2500 ####[facility] [address] [place], [address] Basic Metabolic Profile (BMP )on 07-01-2024 BUN/CRE 30.8 RATIO High 10-20 [facility] Comment on above: Performed By: #### L 100.0100, L500.2500 ####[facility] [address] [place], [address] CA,Total 9.1 mg/dL Normal 8.5-10.1 [facility] Comment on above: Performed By: #### L 100.0100, L500.2500 ####[facility] [address] [place], [address] Chloride [Moles/Vol] 97 mmol/L Low 98-107 [facility] Comment on above: Performed By: #### L 100.0100, L500.2500 ####[facility] [address] [place], [address] CO2 [Moles/Vol] 37.0 mmol/L High 21.0-32.0 [facility] Comment on above: Performed By: #### L 100.0100, L500.2500 ####[facility] [address] [place], [address] Creatinine [Mass/Vol] 0.71 mg/dL Normal 0.55-1.02 [facility] Comment on above: Result Comment: The validity of the calculated GFR GFRAA in patients over70 years has not been determined. Clinical correlation isessential. Performed By: #### L 100.0100, L500.2500 ####[facility] [address] [place], [address] ECRCL 59.42 ml/min Normal [facility] Comment on above: Performed By: #### L 100.0100, L500.2500 ####[facility] [address] [place], [address] EST GFR - AA 104 mL/min Normal >60 [facility] Comment on above: Result Comment: Afri can [place] GFR Calc Performed By: #### L 100.0100, L500.2500 ####[facility] [address] [place], [address] GAP 6 Normal 5-15 [facility] Comment on above: Performed By: #### L 100.0100, L500.2500 ####[facility] [address] [place], [address] GFR/1.73 sq M.predicted among non-blacks MDRD (S/P/Bld) [Vol rate/Area] 86 mL/min/{1.73_m2} Normal >60 [facility] Comment on above: Result Comment: Non- GFR Calc Performed By: #### L 100.0100, L500.2500 ####[facility] [address] [place], [address] Glucose [Mass/Vol] 173 mg/dL High 74-106 [facility] Comment on above: Result Comment: Fast ing Glucose result greater than or equal to 126 mg/dLsuggests DIABETES MELLITUS per A.D.A. criteria. Performed By: #### L 100.0100, L500.2500 ####[facility] [address] [place], [address] Potassium [Moles/Vol] 3.7 mmol/L Normal 3.5-5.1 [facility] Comment on above: Performed By: #### L 100.0100, L500.2500 ####[facility] [address] [place], [address] Sodium [Moles/Vol] 140 mmol/L Normal 136-145 [facility] Comment on above: Performed By: #### L 100.0100, L500.2500 ####[facility] [address] [place], [address] Urea nitrogen [Mass/Vol] 22 mg/dL High 7-18 [facility] Comment on above: Performed By: #### L 100.0100, L500.2500 ####[facility] [address] [place], [address] CBC W/Diff, Automatedon 02-0 Absolute Lymph 0.32 X10 3/uL Low 0.83-4.51 [facility] Comment on above: Performed By: #### L 100.0100, L500.2500 ####[facility] [address] [place], [address] Absolute Neut 10.7 X10 3/uL High 2.0-7.7 [facility] Comment on above: Performed By: #### L 100.0100, L500.2500 ####[facility] [address] [place], [address] Basophils/100 WBC (Bld) 0.1 % Normal 0-1 [facility] Comment on above: Performed By: #### L 100.0100, L500.2500 ####[facility] [address] [place], [address] Eosinophils/100 WBC (Bld) 0.3 % Normal 0-5 [facility] Comment on above: Performed By: #### L 100.0100, L500.2500 ####[facility] [address] [place], [address] Erythrocyte distribution width (RBC) [Ratio] 16.0 % High 11.6-14.6 [facility] Comment on above: Performed By: #### L 100.0100, L500.2500 ####[facility] [address] [place], [address] Hematocrit (Bld) [Volume fraction] 37.7 % Normal 37-47 [facility] Comment on above: Performed By: #### L 100.0100, L500.2500 ####[facility] [address] [place], [address] Hemoglobin (Bld) [Mass/Vol] 11.3 g/dL Low 12.0-15. 0 [facility] Comment on above: Performed By: #### L 100.0100, L500.2500 ####[facility] [address] [place], [address] IG% 0.500 Normal 0.0-0.9 [facility] Comment on above: Result Comment: IG% - Immature Granulocytes (promyelocytes, myelocytes andmetamyelocytes) > 1% indicates that a LEFT SHIFT is Present. Performed By: #### L 100.0100, L500.2500 ####[facility] [address] [place], [address] Lymphocytes/100 WBC (Bld) 2.8 % Low 19-41 [facility] Comment on above: Performed By: #### L 100.0100, L500.2500 ####[facility] [address] [place], [address] MCH (RBC) [Entitic mass] 27.6 pg Normal 27.0-32.0 [facility] Comment on above: Performed By: #### L 100.0100, L500.2500 ####[facility] [address] [place], [address] MCHC (RBC) [Mass/Vol] 30.0 g/dL Low 32-36 [facility] Comment on above: Performed By: #### L 100.0100, L500.2500 ####[facility] [address] [place], [address] MCV (RBC) [Entitic vol] 92.2 fL Normal 81-99 [facility] Comment on above: Performed By: #### L 100.0100, L500.2500 ####[facility] [address] [place], [address] Monocytes/100 WBC (Bld) 4.6 % Normal 0-10 [facility] Comment on above: Performed By: #### L 100.0100, L500.2500 ####[facility] [address] [place], [address] Neutrophils/100 WBC (Bld) 91.7 % High 47-70 [facility] Comment on above: Performed By: #### L 100.0100, L500.2500 ####[facility] [address] [place], [address] Nucleated RBC (Bld) [#/Vol] 0 10*3/uL Normal 0-5 [facility] Comment on above: Performed By: #### L 100.0100, L500.2500 ####[facility] [address] [place], [address] Platelet mean volume (Bld) [Entitic vol] 9.2 fL Normal 6.2-12.0 [facility] Comment on above: Performed By: #### L 100.0100, L500.2500 ####[facility] [address] [place], [address] Platelets (Bld) [#/Vol] 373 10*3/uL Normal 150-450 [facility] Comment on above: Performed By: #### L 100.0100, L500.2500 ####[facility] [address] [place], [address] RBC (Bld) [#/Vol] 4.09 10*6/uL Low 4.2-5.4 [facility] Comment on above: Performed By: #### L 100.0100, L500.2500 ####[facility] [address] [place], [address] RDW SD 54.0 fl High 35.1-43.9 [facility] Comment on above: Performed By: #### L 100.0100, L500.2500 ####[facility] [address] [place], [address] WBC (Bld) [#/Vol] 11.6 10*3/uL High 4.4-11.0 [facility] Comment on above: Performed By: #### L 100.0100, L500.2500 ####[facility] [address] [place], [address] [facility] Telephone ([facility]) MAKENNA ANDRE ([id number]) 1955 F Date Time Provider Department 06/30/24 AMOL GODWIN [facility] During your visit today, we recorded the following information about you: Kelly Klein 06/30/2024 10:48 AM Signed Patient wanted to let you know that she is in [facility]. She cancelled her appt with Dr Godwin, and she wanted to see if she could talk to him. Please advise. Thank you Allergies As of Date: 06/30/2024 Noted Allergy Reaction DARVOCET-N 100 (PROPOXYPHENE N-AC*08/27/2007 16 - Unknown Comments: numbness PENICILLINS 10/07/2012 4 - Hives Date Reviewed: 06/03/2024 Reviewed by: Salvador Marin MD - Fully Assessed Reason for Visit: Patient Update [1234] Prescriptions as of 07/01/2024 - fluticasone-salmetero l (ADVAIR DISKUS) 500-50 mcg/dose dsdv Inhale 1 Puff as instructed two times a day. Rinse and gargle mouth with water after each use. - albuterol HFA (PROVENTIL HFA, VENTOLIN HFA) 90 mcg/actuation inhaler Inhale 2 Puffs as instructed every 6 hours as needed for wheezing/shortness of breath. - TYVASO DPI 64 mcg dry powder inhaler Inhale 64 mcg as instructed four times daily. - RED BEET ROOT-SOUR CANNON EXT ORAL Take by mouth. - OXYGEN, HOME THERAPY, Inhale 6-10 L/min as instructed continuous. - dilTIAZem LA (CARDIZEM LA) 240 mg 24 hr tablet Take 240 mg by mouth once daily. - acetaminophen (TYLENOL ARTHRITIS PAIN) 650 mg CR tablet Take 1 tablet by mouth every 8 hours as needed for pain. - cyanocobalamin (VITAMIN B-12) 1,000 mcg tab Take 1,000 mcg by mouth once daily. - Chromium Picolinate 200 mcg tab Take 1 tablet by mouth once daily. - vitamin E, dl,tocopheryl acet, (VITAMIN E, DL, ACETATE,) 180 mg (400 unit) capsule Take 1 capsule by mouth once daily. - Glucosamine-Chondroit in (OSTEO BI-FLEX) 250-200 mg tab Take 2 tablets by mouth once daily. - potassium chloride ER (KLOR-CON) 20 mEq tablet Take 1 tablet by mouth once daily. - calcium carb-D3-mag ox-zinc ox (NISH MAG ZINC PLUS D3) 333 mg-133 unit -133 mg-5 mg tab Take 1 tablet by mouth once daily. - levothyroxine (SYNTHROID) 50 mcg tablet Take 1 tablet by mouth daily before breakfast. - pravastatin (PRAVACHOL) 20 mg tablet Take 1 tablet by mouth once daily. - turmeric root extract 500 mg cap Take 1 capsule by mouth once daily. - vit A and D3 in cod liver oil 1,250-135 unit cap Take 1 capsule by mouth once daily. - furosemide (LASIX) 40 mg tablet Take 1 tablet by mouth once daily. Patient not taking daily-will try to take at least days a week - Echinacea 500 mg cap Take 1 capsule by mouth two times a day. - lisinopril 10 mg tablet Take 1 tablet by mouth once daily. - Cholecalciferol, Vitamin D3, 2,000 unit cap Take 1 tablet by mouth once daily. - vitamin A-ascorbic acid-vitamin E-minerals (OCUVITE) Tab Take 1 tablet by mouth once daily. - HUB-Dvrcnihnp-Fupvngz nophen (ALLERGY SINUS PE) 2-5-325 mg ORAL Tab Take by mouth as needed. - GARLIC 1,000 MG CAP Take one tablet daily. - aspirin(ADULT LOW DOSE ASPIRIN 81 MG TAB, DELAYED RELEASE) Take one(1) tablet daily. - multivitamins(DAILY MULTIVITAMIN TAB) Take one(1) tablet daily. 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 Yes (<25 Epithelial cells per/lpf) Gram Stain Rare Epithelial cells Rare Gram positive cocci Normal [facility] Comment on above: Performed By: #### M 100.2000, M100.2400 ####[facility] [address] [place], [place], [address] Respiratory Cultureon 2024 RESPC Mixed normal respiratory alf. No Streptococcus pneumoniae, beta-hemolytic Streptococcus or Staphylococcus aureus isolated. Normal [facility] Comment on above: Performed By: #### M 100.2000, M100.2400 ####[facility] [address] [place], [place], [address] Arterial patency Wrist arter y --pre arterial punctureOrdered By: Silvestre Suero on 06-29-2024 Delma Test Positive [facility] Assessment of wrist artery p atency prior to arterial punctureOrdered By: Silvestre Suero on 06-29-2024 Arterial patency Wrist artery --pre arterial puncture Positive [facility] Base excess Calc (BldV) [Mol es/Vol]Ordered By: Silvestre Suero on 06-29-2024 Blood Gas Base Excess 12 mmol/L High -2-2 [facility] Basic Metabolic Profile (BMP )on 06-29-2024 BUN/CRE 26.6 RATIO High 10-20 [facility] Comment on above: Performed By: #### L 100.0500, L500.2500 ####[facility] [address] [place], [address] CA,Total 8.7 mg/dL Normal 8.5-10.1 [facility] Comment on above: Performed By: #### L 100.0500, L500.2500 ####[facility] [address] [place], [address] Chloride [Moles/Vol] 105 mmol/L Normal 98-107 [facility] Comment on above: Performed By: #### L 100.0500, L500.2500 ####[facility] [address] [place], [address] CO2 [Moles/Vol] 33.0 mmol/L High 21.0-32.0 [facility] Comment on above: Performed By: #### L 100.0500, L500.2500 ####[facility] [address] [place], [address] Creatinine [Mass/Vol] 0.60 mg/dL Normal 0.55-1.02 [facility] Comment on above: Result Comment: The validity of the calculated GFR GFRAA in patients over70 years has not been determined. Clinical correlation isessential. Performed By: #### L 100.0500, L500.2500 ####[facility] [address] [place], [address] ECRCL 60.27 ml/min Normal [facility] Comment on above: Performed By: #### L 100.0500, L500.2500 ####[facility] [address] [place], [address] EST GFR - AA 127 mL/min Normal >60 [facility] Comment on above: Result Comment: Afri can [place] GFR Calc Performed By: #### L 100.0500, L500.2500 ####[facility] [address] [place], [address] GAP 5 Normal 5-15 [facility] Comment on above: Performed By: #### L 100.0500, L500.2500 ####[facility] [address] [place], [address] GFR/1.73 sq M.predicted among non-blacks MDRD (S/P/Bld) [Vol rate/Area] 105 mL/min/{1.73_m2} Normal >60 [facility] Comment on above: Result Comment: Non- GFR Calc Performed By: #### L 100.0500, L500.2500 ####[facility] [address] [place], [address] Glucose [Mass/Vol] 150 mg/dL High 74-106 [facility] Comment on above: Result Comment: Fast ing Glucose result greater than or equal to 126 mg/dLsuggests DIABETES MELLITUS per A.D.A. criteria. Performed By: #### L 100.0500, L500.2500 ####[facility] [address] [place], [address] Potassium [Moles/Vol] 4.4 mmol/L Normal 3.5-5.1 [facility] Comment on above: Performed By: #### L 100.0500, L500.2500 ####[facility] [address] [place], [address] Sodium [Moles/Vol] 143 mmol/L Normal 136-145 [facility] Comment on above: Performed By: #### L 100.0500, L500.2500 ####[facility] [address] [place], [address] Urea nitrogen [Mass/Vol] 16 mg/dL Normal 7-18 [facility] Comment on above: Performed By: #### L 100.0500, L500.2500 ####[facility] [address] [place], [address] [address] [facility] 025 DELMA TEST Positive Normal [facility] Comment on above: Performed By: #### L 9000.0800 ####[facility] [address] [place], [address] Base excess Calc (Bld) [Moles/Vol] 12 mmol/L High -2 to +2 [facility] Comment on above: Performed By: #### L 9000.0800 ####[facility] [address] [place], [address] Blood Gas Type ART Normal [facility] Comment on above: Performed By: #### L 9000.0800 ####[facility] [address] [place], [address] CO2 [Moles/Vol] 38 mmol/L Normal [facility] Comment on above: Performed By: #### L 9000.0800 ####[facility] [address] [place], [address] FI02 10.0 Normal [facility] Comment on above: Performed By: #### L 9000.0800 ####[facility] [address] [place], [address] HCO3 (Bld) [Moles/Vol] 36.5 mmol/L High 22-26 [facility] Comment on above: Performed By: #### L 9000.0800 ####[facility] [address] [place], [address] Mode Not entered Normal [facility] Comment on above: Performed By: #### L 9000.0800 ####[facility] [address] [place], [address] O2 Delivery Dev CPAP Normal [facility] Comment on above: Performed By: #### L 9000.0800 ####[facility] [address] [place], [address] pCO2 56.1 mmHg High 35-45 [facility] Comment on above: Performed By: #### L 9000.0800 ####[facility] [address] [place], [address] pH (Bld) 7.42 [pH] Normal 7.35-7.45 [facility] Comment on above: Performed By: #### L 9000.0800 ####[facility] [address] [place], [address] PO2 74 mmHG Low 75-100 [facility] Comment on above: Performed By: #### L 9000.0800 ####[facility] [address] [place], [address] SITE Not entered Normal [facility] Comment on above: Performed By: #### L 9000.0800 ####[facility] [address] [place], [address] SO2 95 Normal 95-99 [facility] Comment on above: Performed By: #### L 9000.0800 ####[facility] [address] [place], [address] Blood base excess determinat ionOrdered By: Silvestre Suero on 06-29-2024 Base excess Calc (BldV) [Moles/Vol] 12 mmol/L High -2-2 [facility] Blood bicarbonate measuremen tOrdered By: Silvestre Suero on 06-29-2024 Blood Gas Bicarbonate Actual 36.5 mmol/L High 22- [facility] HCO3 (Bld) [Moles/Vol] 36.5 mmol/L High 22-26 [facility] CBC-Complete Blood Cnt No Di ffon 06-29-2024 Erythrocyte distribution width (RBC) [Ratio] 15.9 % High 11.6-14.6 [facility] Comment on above: Performed By: #### L 100.0500, L500.2500 ####[facility] [address] [place], [address] Hematocrit (Bld) [Volume fraction] 33.5 % Low 37-47 [facility] Comment on above: Performed By: #### L 100.0500, L500.2500 ####[facility] [address] [place], [address] Hemoglobin (Bld) [Mass/Vol] 10.2 g/dL Low 12.0-15. 0 [facility] Comment on above: Performed By: #### L 100.0500, L500.2500 ####[facility] [address] [place], [address] MCH (RBC) [Entitic mass] 28.0 pg Normal 27.0-32.0 [facility] Comment on above: Performed By: #### L 100.0500, L500.2500 ####[facility] [address] [place], [address] MCHC (RBC) [Mass/Vol] 30.4 g/dL Low 32-36 [facility] Comment on above: Performed By: #### L 100.0500, L500.2500 ####[facility] [address] [place], [address] MCV (RBC) [Entitic vol] 92.0 fL Normal 81-99 [facility] Comment on above: Performed By: #### L 100.0500, L500.2500 ####[facility] [address] [place], [address] Platelet mean volume (Bld) [Entitic vol] 9.5 fL Normal 6.2-12.0 [facility] Comment on above: Performed By: #### L 100.0500, L500.2500 ####[facility] [address] [place], [address] Platelets (Bld) [#/Vol] 289 10*3/uL Normal 150-450 [facility] Comment on above: Performed By: #### L 100.0500, L500.2500 ####[facility] [address] [place], [address] RBC (Bld) [#/Vol] 3.64 10*6/uL Low 4.2-5.4 [facility] Comment on above: Performed By: #### L 100.0500, L500.2500 ####[facility] [address] [place], [address] RDW SD 53.9 fl High 35.1-43.9 [facility] Comment on above: Performed By: #### L 100.0500, L500.2500 ####[facility] [address] [place], [address] WBC (Bld) [#/Vol] 4.0 10*3/uL Low 4.4-11.0 [facility] Comment on above: Performed By: #### L 100.0500, L500.2500 ####[facility] [address] [place], [address] Determination of fraction of inspired oxygenOrdered By: Silvestre Suero on 06-29-2024 Blood Gas Oxygen Percent 10.0 [facility] Gram stainOrdered By: Mylene Cunningham on 06-29-2024 Microscopic observation Gram stain Nom (Unsp spec) [facility] Microscopic observation Gram stain Nom (Unsp spec) [facility] Measurement, pHOrdered By: Yanique Suero on 06-29-2024 pH (Unsp spec) 7.42 [pH] 7.35-7.45 [facility] Microbial respiratory cultur eOrdered By: Ángel Amanda on 06-29-2024 Microorganism identified Cx Nom (Unsp spec) or Staphylococcus aureus isolated. [facility] Microorganism identified Cx Nom (Unsp spec)Ordered By: Ángel Amanda on 06-29-2024 Respiratory Culture or Staphylococcus aureus isolated. [facility] Respiratory Culture or Staphylococcus aureus isolated. [facility] No Panel InformationOrdered By: Silvestre Suero on 06-29-2024 Blood Gas Sample Site Not entered [facility] Blood Gas Specimen Type ART [facility] Blood Gas Vent Mode Not entered [facility] Oxygen Delivery Device CPAP [facility] Oxygen saturation measuremen tOrdered By: Silvestre Suero on 06-29-2024 Blood Gas Oxygen Saturation 95 % 95-99 [facility] Partial pressure of carbon d ioxide measurementOrdered By: Silvestre Suero on 06-29-2024 Arterial Blood Partial Pressure CO2 56.1 mmHg High 35-45 [facility] Partial pressure of oxygen m easurementOrdered By: Silvestre Suero on 06-29-2024 Arterial Blood Partial Pressure O2 74 mmHG Low 75-100 [facility] Total carbon dioxide measure mentOrdered By: Silvestre Suero on 06-29-2024 Blood Gas Total CO2 38 mmol/L [facility] CO2 [Moles/Vol] 38 mmol/L [facility] pH (Unsp spec)Ordered By: Tommy Suero on 06-29-2024 Blood Gas pH 7.42 7.35-7.45 [facility] 12 Lead EKGon 06-28-2024 12 Lead EKG Normal [facility] BNP (brain natriuretic pepti de measurement)Ordered By: Eddie Putnam on 06-28-2024 Natriuretic peptide B (Bld) [Mass/Vol] 261.3 pg/mL High 0-100 [facility] BNP,B-Type NATRIURETIC PEPTI Maxine 06-28-2024 Natriuretic peptide B (Bld) [Mass/Vol] 261.3 pg/mL High 0-100 [facility] Comment on above: Performed By: #### L 503.6664, M200.1000, L100.0100, L503.6005 ####[facility] [address] [place], [address] Base excess Calc (BldV) [Mol es/Vol]Ordered By: Eddie Putnam on 06-28-2024 Venous Blood Base Excess 8 mmol/L High -1.0-3.5 [facility] Basic Metabolic Profile (BMP )on 06-28-2024 BUN/CRE 16.0 RATIO Normal 10-20 [facility] Comment on above: Order Comment: 'TROP ' Serial specimen #1, #2 or #3: 1 Performed By: #### L 500.3400, L500.2500, L501.4020 ####[facility] [address] [place], [address] CA,Total 9.8 mg/dL Normal 8.5-10.1 [facility] Comment on above: Order Comment: 'TROP ' Serial specimen #1, #2 or #3: 1 Performed By: #### L 500.3400, L500.2500, L501.4020 ####[facility] [address] [place], [address] Chloride [Moles/Vol] 104 mmol/L Normal 98-107 [facility] Comment on above: Order Comment: 'TROP ' Serial specimen #1, #2 or #3: 1 Performed By: #### L 500.3400, L500.2500, L501.4020 ####[facility] [address] [place], [address] CO2 [Moles/Vol] 32.0 mmol/L Normal 21.0-32.0 [facility] Comment on above: Order Comment: 'TROP ' Serial specimen #1, #2 or #3: 1 Performed By: #### L 500.3400, L500.2500, L501.4020 ####[facility] [address] [place], [address] Creatinine [Mass/Vol] 0.88 mg/dL Normal 0.55-1.02 [facility] Comment on above: Order Comment: 'TROP ' Serial specimen #1, #2 or #3: 1 Result Comment: The validity of the calculated GFR GFRAA in patients over70 years has not been determined. Clinical correlation isessential. Performed By: #### L 500.3400, L500.2500, L501.4020 ####[facility] [address] [place], [address] ECRCL 55.33 ml/min Normal [facility] Comment on above: Order Comment: 'TROP ' Serial specimen #1, #2 or #3: 1 Performed By: #### L 500.3400, L500.2500, L501.4020 ####[facility] [address] [place], [address] EST GFR - AA 83 mL/min Normal >60 [facility] Comment on above: Order Comment: 'TROP ' Serial specimen #1, #2 or #3: 1 Result Comment: Afri can [place] GFR Calc Performed By: #### L 500.3400, L500.2500, L501.4020 ####[facility] [address] [place], [address] GAP 5 Normal 5-15 [facility] Comment on above: Order Comment: 'TROP ' Serial specimen #1, #2 or #3: 1 Performed By: #### L 500.3400, L500.2500, L501.4020 ####[facility] [address] [place], [address] GFR/1.73 sq M.predicted among non-blacks MDRD (S/P/Bld) [Vol rate/Area] 68 mL/min/{1.73_m2} Normal >60 [facility] Comment on above: Order Comment: 'TROP ' Serial specimen #1, #2 or #3: 1 Result Comment: Non- GFR Calc Performed By: #### L 500.3400, L500.2500, L501.4020 ####[facility] [address] [place], [address] Glucose [Mass/Vol] 159 mg/dL High 74-106 [facility] Comment on above: Order Comment: 'TROP ' Serial specimen #1, #2 or #3: 1 Result Comment: Fast ing Glucose result greater than or equal to 126 mg/dLsuggests DIABETES MELLITUS per A.D.A. criteria. Performed By: #### L 500.3400, L500.2500, L501.4020 ####[facility] [address] [place], [address] Potassium [Moles/Vol] 3.8 mmol/L Normal 3.5-5.1 [facility] Comment on above: Order Comment: 'TROP ' Serial specimen #1, #2 or #3: 1 Performed By: #### L 500.3400, L500.2500, L501.4020 ####[facility] [address] [place], [address] Sodium [Moles/Vol] 140 mmol/L Normal 136-145 [facility] Comment on above: Order Comment: 'TROP ' Serial specimen #1, #2 or #3: 1 Performed By: #### L 500.3400, L500.2500, L501.4020 ####[facility] [address] [place], [address] Urea nitrogen [Mass/Vol] 14 mg/dL Normal 7-18 [facility] Comment on above: Order Comment: 'TROP ' Serial specimen #1, #2 or #3: 1 Performed By: #### L 500.3400, L500.2500, L501.4020 ####[facility] [address] [place], [address] Bilirubin directOrdered By: Eddie Putnam on 06-28-2024 Bilirubin.direct [Mass/Vol] 0.26 mg/dL 0.00-0.3 0 [facility] Bilirubin, totalOrdered By: Eddie Putnam on 06-28-2024 Bilirubin [Mass/Vol] 0.60 mg/dL 0.20-1.00 [facility] Comment on above: For patients on eltr ombopag therapy, use of Dimension [place] TBIL is not recommended. Blood cultureOrdered By: Austen Putnam on 06-28-2024 Bacteria identified Cx Nom (Bld) No growth in 5 days. [facility] Bacteria identified Cx Nom (Bld) No growth in 5 days. [facility] Bacteria identified Cx Nom (Bld) No growth in 5 days. [facility] Bacteria identified Cx Nom (Bld) No growth in 5 days. [facility] CBC W/Diff, Automatedon 02-0 -2024 Absolute Lymph 1.80 X10 3/uL Normal 0.83-4.51 [facility] Comment on above: Performed By: #### L 503.6620, M200.1000, L100.0100, L503.6005 ####[facility] [address] [place], [address] Absolute Neut 7.2 X10 3/uL Normal 2.0-7.7 [facility] Comment on above: Performed By: #### L 503.6620, M200.1000, L100.0100, L503.6005 ####[facility] [address] [place], [address] Basophils/100 WBC (Bld) 0.5 % Normal 0-1 [facility] Comment on above: Performed By: #### L 503.6620, M200.1000, L100.0100, L503.6005 ####[facility] [address] [place], [address] Eosinophils/100 WBC (Bld) 2.0 % Normal 0-5 [facility] Comment on above: Performed By: #### L 503.6620, M200.1000, L100.0100, L503.6005 ####[facility] [address] [place], [address] Erythrocyte distribution width (RBC) [Ratio] 16.2 % High 11.6-14.6 [facility] Comment on above: Performed By: #### L 503.6620, M200.1000, L100.0100, L503.6005 ####[facility] [address] [place], [address] Hematocrit (Bld) [Volume fraction] 38.4 % Normal 37-47 [facility] Comment on above: Performed By: #### L 503.6620, M200.1000, L100.0100, L503.6005 ####[facility] [address] [place], [address] Hemoglobin (Bld) [Mass/Vol] 11.3 g/dL Low 12.0-15. 0 [facility] Comment on above: Performed By: #### L 503.6620, M200.1000, L100.0100, L503.6005 ####[facility] [address] [place], [address] IG% 0.400 Normal 0.0-0.9 [facility] Comment on above: Result Comment: IG% - Immature Granulocytes (promyelocytes, myelocytes andmetamyelocytes) > 1% indicates that a LEFT SHIFT is Present. Performed By: #### L 503.6620, M200.1000, L100.0100, L503.6005 ####[facility] [address] [place], [address] Lymphocytes/100 WBC (Bld) 18.1 % Low 19-41 [facility] Comment on above: Performed By: #### L 503.6620, M200.1000, L100.0100, L503.6005 ####[facility] [address] [place], [address] MCH (RBC) [Entitic mass] 27.6 pg Normal 27.0-32.0 [facility] Comment on above: Performed By: #### L 503.6620, M200.1000, L100.0100, L503.6005 ####[facility] [address] [place], [address] MCHC (RBC) [Mass/Vol] 29.4 g/dL Low 32-36 [facility] Comment on above: Performed By: #### L 503.6620, M200.1000, L100.0100, L503.6005 ####[facility] [address] [place], [address] MCV (RBC) [Entitic vol] 93.7 fL Normal 81-99 [facility] Comment on above: Performed By: #### L 503.6620, M200.1000, L100.0100, L503.6005 ####[facility] [address] [place], [address] Monocytes/100 WBC (Bld) 7.0 % Normal 0-10 [facility] Comment on above: Performed By: #### L 503.6620, M200.1000, L100.0100, L503.6005 ####[facility] [address] [place], [address] Neutrophils/100 WBC (Bld) 72.0 % High 47-70 [facility] Comment on above: Performed By: #### L 503.6620, M200.1000, L100.0100, L503.6005 ####[facility] [address] [place], [address] Nucleated RBC (Bld) [#/Vol] 0 10*3/uL Normal 0-5 [facility] Comment on above: Performed By: #### L 503.6620, M200.1000, L100.0100, L503.6005 ####[facility] [address] [place], [address] Platelet mean volume (Bld) [Entitic vol] 9.5 fL Normal 6.2-12.0 [facility] Comment on above: Performed By: #### L 503.6620, M200.1000, L100.0100, L503.6005 ####[facility] [address] [place], [address] Platelets (Bld) [#/Vol] 360 10*3/uL Normal 150-450 [facility] Comment on above: Performed By: #### L 503.6620, M200.1000, L100.0100, L503.6005 ####[facility] [address] [place], [address] RBC (Bld) [#/Vol] 4.10 10*6/uL Low 4.2-5.4 [facility] Comment on above: Performed By: #### L 503.6620, M200.1000, L100.0100, L503.6005 ####[facility] [address] [place], [address] RDW SD 55.0 fl High 35.1-43.9 [facility] Comment on above: Performed By: #### L 503.6620, M200.1000, L100.0100, L503.6005 ####[facility] [address] [place], [address] WBC (Bld) [#/Vol] 10.0 10*3/uL Normal 4.4-11.0 [facility] Comment on above: Performed By: #### L 503.6620, M200.1000, L100.0100, L503.6005 ####[facility] [address] [place], [address] CO2 (BldV) [Moles/Vol]Ordere d By: Eddie Putnam on 06-28-2024 CO2 [Moles/Vol] 35 mmol/L High 23-33 [facility] CO2 (BldV) [Partial pressure ]Ordered By: Eddie Putnam on 06-28-2024 Bed Mix Venous Bld PCO2 at Pat Temp 55.6 mmHg High 41-51 [facility] CTA Chest W/WO Contraston CTA Chest W/WO Contrast Normal [facility] Chest 1 View (Portable)on Chest 1 View (Portable) Normal [facility] Consultation - Intensiviston 06-28-2024 Consultation - Executive Communications Manager Normal [facility] Emergency Department Summary on 06-28-2024 Emergency Department Summary Normal [facility] H AND P Exam - Hospitaliston 06-28-2024 H&P Exam - Hospitalist Normal [facility] Influenza virus A and B and SARS-CoV-2 (COVID-19) and Respiratory syncytial virus RNAOrdered By: Eddie Putnam on 06-28-2024 SARS-CoV-2 (COVID-19) RNA GENA+probe Ql (Unsp spec) [facility] SARS-CoV-2 (COVID-19) RNA GENA+probe Ql (Unsp spec) [facility] L501.4020on 06-28-2024 TROPONIN-I HS 22 pg/mL Normal 3.0-54.0 [facility] Comment on above: Order Comment: 'TROP ' Serial specimen #1, #2 or #3: 1 Result Comment: [place] Note: New Test Units and Gender Specific Reference Ranges. For more information see Policy Stat Procedure [place] High Sensitivity Troponin (TNIH) and attachments. Performed By: #### L 500.3400, L500.2500, L501.4020 ####[facility] [address] [place], [place], [address] Laboratory - Chemistry and C hemistry - challengeOrdered By: Eddie Putnam on 06-28-2024 AST [Catalytic activity/Vol] 9 U/L Low 15-37 [facility] Lactic Acidon 06-28-2024 Lactate [Moles/Vol] 2.7 mmol/L Invalid Interpretation Code 0.4-1.9 [facility] Comment on above: Order Comment: Y Result Comment: Crit ical Result(s) Called at: 11:37:16 06/28/2024 by:Eden Adams to Michael. Results read back by same. Performed By: #### L 503.6620, M200.1000, L100.0100, L503.6005 ####[facility] [address] [place], [place], [address] Lactic acid measurementOrder ed By: Eddie Putnam on 06-28-2024 Lactate [Moles/Vol] 2.7 mmol/L High 0.4-2.0 [facility] Comment on above: Critical Result(s) C alled at: 11:37:16 06/28/2024 by: Eden Rodriguez. Results read back by same. Liver Profileon 06-28-2024 Albumin [Mass/Vol] 3.2 g/dL Normal 3.2-5.0 [facility] Comment on above: Order Comment: 'TROP ' Serial specimen #1, #2 or #3: 1 Performed By: #### L 500.3400, L500.2500, L501.4020 ####[facility] [address] [place], [address] ALK P 82 U/L Normal 45-117 [facility] Comment on above: Order Comment: 'TROP ' Serial specimen #1, #2 or #3: 1 Performed By: #### L 500.3400, L500.2500, L501.4020 ####[facility] [address] [place], [address] ALT [Catalytic activity/Vol] 22 U/L Normal 13-56 [facility] Comment on above: Order Comment: 'TROP ' Serial specimen #1, #2 or #3: 1 Performed By: #### L 500.3400, L500.2500, L501.4020 ####[facility] [address] [place], [address] AST [Catalytic activity/Vol] 9 U/L Low 15-37 [facility] Comment on above: Order Comment: 'TROP ' Serial specimen #1, #2 or #3: 1 Performed By: #### L 500.3400, L500.2500, L501.4020 ####[facility] [address] [place], [address] Bilirubin [Mass/Vol] 0.60 mg/dL Normal 0.20-1.00 [facility] Comment on above: Order Comment: 'TROP ' Serial specimen #1, #2 or #3: 1 Result Comment: For patients on eltrombopag therapy, use of Dimension [place] TBIL is not recommended. Performed By: #### L 500.3400, L500.2500, L501.4020 ####[facility] [address] [place], [address] Bilirubin.direct [Mass/Vol] 0.26 mg/dL Normal 0.00-0.3 0 [facility] Comment on above: Order Comment: 'TROP ' Serial specimen #1, #2 or #3: 1 Performed By: #### L 500.3400, L500.2500, L501.4020 ####[facility] [address] [place], [address] Globulin (S) [Mass/Vol] 4.5 g/dL High 2.2-4.2 [facility] Comment on above: Order Comment: 'TROP ' Serial specimen #1, #2 or #3: 1 Performed By: #### L 500.3400, L500.2500, L501.4020 ####[facility] [address] [place], [address] T PROT 7.7 g/dL Normal 6.4-8.2 [facility] Comment on above: Order Comment: 'TROP ' Serial specimen #1, #2 or #3: 1 Performed By: #### L 500.3400, L500.2500, L501.4020 ####[facility] [address] [place], [address] M100.678on 06-28-2024 M100.678 Pending SARS-CoV-2 (COVID 19) Negative INFLUENZA A Negative INFLUENZA B Negative RSV PCR Negative Normal [facility] Comment on above: Performed By: #### M 100.678 ####[facility] [address] [place], [address] No Panel InformationOrdered By: Eddie Putnam on 06-28-2024 Bld Gas Crit Called To/Read Back By Yes [facility] Oxygen (BldV) [Partial press ure]Ordered By: Eddie Putnam on 06-28-2024 Venous Blood Partial Pressure O2 18 mmHg Low 25-40 [facility] Procalcitoninon 06-28-2024 Procalcitonin 0.07 ng/mL Normal 0.00-0.09 [facility] Comment on above: Result Comment: A pr ocalcitonin (PCT) level above 2.0 ng/mL on the first day of ICU admission is associated with a high risk for progression to severe sepsis and/or septic shock. A PCT level below 0.5 ng/mL on the first day of ICU admission is associated with a low risk for progression to severe and/or septic shock. Note: Concentrations <0.5 ng/mL do not exclude an infection on account of localized infections (without systemic signs) which can be associated with such low concentrations, or a systemic infection in its initial stages (<6 hours). Furthermore, increased procalcitonin can occur without infection. PCT concentrations between 0.5 and 2.0 ng/mL should be interpreted taking into account the patient's history. It is recommended to retest PCT within 6-24 hours if any concentrations <2 ng/mL are obtained. Performed By: #### L 509.7000 ####[facility] [address] [place], [address] Procalcitonin [Mass/Vol]Orde red By: Ángel Amanda on 06-28-2024 Procalcitonin 0.07 ng/mL 0.00-0.09 [facility] Comment on above: A procalcitonin (PCT ) level above 2.0 ng/mL on the first day of ICU admission is associated with a high risk for progression to severe sepsis and/or septic shock. A PCT level below 0.5 ng/mL on the first day of ICU admission is associated with a low risk for progression to severe and/or septic shock. Note: Concentrations <0.5 ng/mL do not exclude an infection on account of localized infections (without systemic signs) which can be associated with such low concentrations, or a systemic infection in its initial stages (<6 hours). Furthermore, increased procalcitonin can occur without infection. PCT concentrations between 0.5 and 2.0 ng/mL should be interpreted taking into account the patient's history. It is recommended to retest PCT within 6-24 hours if any concentrations <2 ng/mL are obtained. RESPIRATORY PANEL MOLECULARo n 06-28-2024 RP PANEL Normal [facility] Comment on above: Performed By: #### M 100.638 ####[facility] [address] [place], [place], [id number] Respiratory pathogens DNA an d RNA panel GENA+probe (Resp)Ordered By: Ángel Amanda on 06-28-2024 Respiratory Panel (PCR) [facility] Respiratory Panel (PCR) [facility] Respiratory pathogens detect ion panel by molecular detection methodOrdered By: Ángel Amanda on 06-28-2024 Respiratory pathogens DNA and RNA panel GENA+probe (Resp) [facility] Serum globulin measurementOr dered By: Eddie Putnam on 06-28-2024 Globulin (S) [Mass/Vol] 4.5 g/dL High 2.2-4.2 [facility] Serum or plasma alanine larios otransferase (ALT) measurementOrdered By: Eddie Putnam on 06-28-2024 ALT [Catalytic activity/Vol] 22 U/L 13-56 [facility] Serum or plasma albumin juanpablo urement (mass/volume)Ordered By: Eddie Putnam on 06-28-2024 Albumin [Mass/Vol] 3.2 g/dL 3.2-5.0 [facility] Serum or plasma alkaline yady sphatase measurementOrdered By: Eddie Putnam on 06-28-2024 ALP [Catalytic activity/Vol] 82 U/L 45-117 [facility] Serum procalcitonin measurem entOrdered By: Ángel Amanda on 06-28-2024 Procalcitonin [Mass/Vol] 0.07 ng/mL 0.00-0.09 [facility] Comment on above: A procalcitonin (PCT ) level above 2.0 ng/mL on the first day of ICU admission is associated with a high risk for progression to severe sepsis and/or septic shock. A PCT level below 0.5 ng/mL on the first day of ICU admission is associated with a low risk for progression to severe and/or septic shock. Note: Concentrations <0.5 ng/mL do not exclude an infection on account of localized infections (without systemic signs) which can be associated with such low concentrations, or a systemic infection in its initial stages (<6 hours). Furthermore, increased procalcitonin can occur without infection. PCT concentrations between 0.5 and 2.0 ng/mL should be interpreted taking into account the patient's history. It is recommended to retest PCT within 6-24 hours if any concentrations <2 ng/mL are obtained. Total proteinOrdered By: Austen Putnam on 06-28-2024 Protein [Mass/Vol] 7.7 g/dL 6.4-8.2 [facility] Troponin IOrdered By: Eddie Putnam on 06-28-2024 Troponin I 22 pg/mL 3.0-54.0 [facility] Comment on above: Please Note: New Sparkle t Units and Gender Specific Reference Ranges. For more information see Policy Stat Procedure [place] High Sensitivity Troponin (TNIH) and attachments. Troponin I High Sensitivity 22 pg/mL 3.0-54.0 [facility] Comment on above: Please Note: New Sparkle t Units and Gender Specific Reference Ranges. For more information see Policy Stat Procedure [place] High Sensitivity Troponin (TNIH) and attachments. Venous Blood Gason 5 Blood Gas Type NAINA [facility] Comment on above: Performed By: #### L 9000.0810 ####[facility] [address] [place], [address] CO2 [Moles/Vol] 35 mmol/L High 23-33 [facility] Comment on above: Performed By: #### L 9000.0810 ####[facility] [address] [place], [address] HCO3 (Bld) [Moles/Vol] 33 mmol/L High 22-26 [facility] Comment on above: Performed By: #### L 9000.0810 ####[facility] [address] [place], [address] O2 Delivery Dev Not entered Normal [facility] Comment on above: Performed By: #### L 9000.0810 ####[facility] [address] [place], [address] Read Back By Yes Normal [facility] Comment on above: Performed By: #### L 9000.0810 ####[facility] [address] [place], [address] SITE Not entered Normal [facility] Comment on above: Performed By: #### L 9000.0810 ####[facility] [address] [place], [address] VBG BE 8 mmol/L High -1.0-3.5 [facility] Comment on above: Performed By: #### L 9000.0810 ####[facility] [address] [place], [address] VBG pCO2 55.6 mmHg High 41-51 [facility] Comment on above: Performed By: #### L 9000.0810 ####[facility] [address] [place], [address] VBG pH 7.38 Normal 7.32-7.42 [facility] Comment on above: Performed By: #### L 9000.0810 ####[facility] [address] [place], [address] VBG PO2 18 mmHg Invalid Interpretation Code 25-40 [facility] Comment on above: Performed By: #### L 9000.0810 ####[facility] [address] [place], [address] VBG SO2 25 Low 50-70 [facility] Comment on above: Performed By: #### L 9000.0810 ####[facility] [address] [place], [address] Venous blood base excess nilay surementOrdered By: Eddie Putnam on 06-28-2024 Base excess Calc (BldV) [Moles/Vol] 8 mmol/L High -1.0-3.5 [facility] Venous blood bicarbonate nilay surementOrdered By: Eddie Putnam on 06-28-2024 HCO3 (Bld) [Moles/Vol] 33 mmol/L High 22-26 [facility] Venous blood oxygen saturati on measurementOrdered By: Eddie Putnam on 06-28-2024 Oxygen saturation in Blood 25 % Low 50-70 [facility] Venous blood pH measurementO rdered By: Eddie Putnam on 06-28-2024 pH (BldV) 7.38 [pH] 7.32-7.42 [facility] Venous blood partial pressur e of carbon dioxide measurementOrdered By: Eddie Putnam on 06-28-2024 CO2 (BldV) [Partial pressure] 55.6 mm[Hg] High 41-51 [facility] Venous blood partial pressur e of oxygen measurementOrdered By: Eddie Putnam on 06-28-2024 Oxygen (BldV) [Partial pressure] 18 mm[Hg] Low 25-40 [facility] pH (BldV)Ordered By: Eddie Putnam on 06-28-2024 Venous Blood pH 7.38 7.32-7.42 [facility] GERARDO BY IFA SCREENon 06-23-19 25 Nuclear Ab Ql (S) Negative Normal Negative [facility] Comment on above: Order Comment: Lennyi jolynn Type: BLOOD SPECIMENOrdering Facility: [facility] Address: [address] [place] [address] Result Comment: Anti -nuclear antibody test is used as an aid in diagnosis of systemic autoimmune diseases. Where positive and clinically warranted, follow-up using disease-specific testing is recommended. Low positive titers are not uncommon with advanced age, certain chronic infections, and malignancies among others. Test methodology: Indirect fluorescence immunoassay (IFA) using HEp-2 cells. Performed By: #### A NAIFS, ANCA ####[facility]IA [id number] [place] [address] [place] ANTI NEUTRO CYTO ABon 2024 INTERPRETATION (ANCA) Equivocal staining seen on the ethanol (indirect immunofluorescence screen) slide but negative results on follow up confirmatory testing. Anti-nuclear antibody test may be considered. Clinical correlation is required. Normal [facility] Comment on above: Order Comment: Speci men Type: BLOOD SPECIMENOrdering Facility: [facility] Address: [address] [place] [address] Performed By: #### A NAIFS, ANCA ####[facility]IA [id number] [place] [address] [place] Myeloperoxidase Ab Qn (S) <0.2 Normal <1.0 [facility] Comment on above: Order Comment: Speci men Type: BLOOD SPECIMENOrdering Facility: [facility] Address: [address] [place] [address] Performed By: #### A NAIFS, ANCA ####[facility]CLIA [id number] [place] [address] [place] Neutrophil cytoplasmic Ab.classic IF Ql (S) Negative Normal Negative [facility] Comment on above: Order Comment: Speci men Type: BLOOD SPECIMENOrdering Facility: [facility] Address: [address] [place] [address] Performed By: #### A NAIFS, ANCA ####[facility] LABIA [id number] [place] [address] [place] Neutrophil cytoplasmic Ab.perinuclear IF Ql (S) Negative Normal Negative [facility] Comment on above: Order Comment: Speci men Type: BLOOD SPECIMENOrdering Facility: [facility] Address: [address] [place] [address] Performed By: #### A NAIFS, ANCA ####[facility]IA [id number] [place] [address] [place] Proteinase 3 Ab Qn (S) <0.2 Normal <1.0 [facility] Comment on above: Order Comment: Speci men Type: BLOOD SPECIMENOrdering Facility: [facility] Address: [address] [place] [address] Performed By: #### A NAIFS, ANCA ####[facility] LABCLIA [id number] [place] [address] [place] STAFF REVIEW (ANCA) Reviewed by Arpit Obrien, Ph.D D(MELQUIADES) Normal [facility] Comment on above: Order Comment: Speci men Type: BLOOD SPECIMENOrdering Facility: [facility] Address: [address] [place] [address] Performed By: #### A DAVID, ANCA ####[facility] LABCLIA [id number] [place] [address] [place] Aldolase SerPl-cCncon 2024 Aldolase [Catalytic activity/Vol] 4.4 mU/mL Normal 1.5-8.1 [facility] Comment on above: Order Comment: Speci men Type: BLOOD SPECIMENOrdering Facility: [facility] Address: [address] [place] [address] Result Comment: This test was developed, and its performance characteristics determined by the [facility] Department of Pathology and Laboratory Medicine. It has not been cleared or approved by the FDA. The [facility] Department of Pathology and Laboratory Medicine is regulated under CLIA as qualified to perform high-complexity testing. This test is used for clinical purposes. It should not be regarded as investigational or for research. Performed By: #### 1 761-6 ####[facility] LABCLIA [id number] [place] [address] [place] CK SerPl-cCncon 06-23-2024 CK [Catalytic activity/Vol] 38 U/L Low 42-196 [facility] Comment on above: Order Comment: Speci men Type: BLOOD SPECIMEN [facility] Address: [address] [place] [address] Performed By: #### T HTO #### [facility] CLIA [id number] [address] [place] [address] Centromere Ab IF Ql (S)on Centromere Ab Qn (S) <0.2 Normal <1.0 [facility] Comment on above: Order Comment: Speci men Type: BLOOD SPECIMENOrdering Facility: [facility] Address: [address] [place] [address] Result Comment: Anti -centromere antibody is used as in aid in diagnosis of systemic sclerosis. Clinical correlation is required. Test Methodology: Multiplex flow immunoassay. Performed By: #### 5 1775-5, 61090-6, 77712-8, 10696-7, 58572-2, 41883-5, 23501-2, 73351-9 ####[facility] LABIA [id number] [place] [address] [place] CENTROMERE AB QUAL Negative Normal Negative [facility] Comment on above: Order Comment: Speci men Type: BLOOD SPECIMENOrdering Facility: [facility] Address: [address] [place] [address] Performed By: #### 5 177-5, 87657-9, 05213-2, 98444-5, 08083-4, 55045-5, 08276-2, 95607-5 ####[facility] [id number] [place] [address] [place] Chromatin Ab Qnon 06-23-2024 CHROMATIN AB QUAL Negative Normal Negative [facility] Comment on above: Order Comment: Speci men Type: BLOOD SPECIMENOrdering Facility: [facility] Address: [address] [place] [address] Performed By: #### 5 1775-5, 48171-3, 14348-5, 54005-3, 73798-9, 38902-3, 65087-2, 07190-2 ####[facility] [id number] [place] [address] [place] Chromatin Ab SerPl-aCncon Chromatin Ab Qn <0.2 Normal <1.0 [facility] Comment on above: Order Comment: Speci men Type: BLOOD SPECIMENOrdering Facility: [facility] Address: [address] [place] [address] Result Comment: Test Methodology: Multiplex flow immunoassay. Performed By: #### 5 1775-5, 55178-7, 42399-5, 24740-3, 49012-1, 37544-2, 89766-8, 44752-2 ####[facility] LABCLIA [id number] [place] [address] [place] Cyclic citrullinated peptide IgG Qnon 06-23-2024 CCP ANTIBODY IGG QUALITATIVE Positive Abnormal Negative [facility] Comment on above: Order Comment: Speci men Type: BLOOD SPECIMEN [facility] Address: [address] [place] [address] Performed By: #### T HTO #### [facility] CLIA [id number] [address] [place] [address] DNA ANTIBODY DS BLDon 2024 DNA ANTIBODY 38 IU/mL Normal <=200 [facility] Comment on above: Order Comment: Speci men Type: BLOOD SPECIMEN [facility] Address: [address] [place] [address] Result Comment: Nega tive: <200 IU/mL Equivocal: 201-300 IU/mL Moderate Positive: 301-800 IU/mL Strong Positive: >801 IU/mL Performed By: #### T HTO #### [facility] CLIA [id number] [address] [place] [address] DNA ANTIBODY QUALITATIVE INTERPRETATION Negative Normal Negative [facility] Comment on above: Order Comment: Speci men Type: BLOOD SPECIMEN [facility] Address: [address] [place] [address] Performed By: #### T HTO #### [facility] CLIA [id number] [address] [place] [address] AGUILA Jo1 Ab Ser-aCncon 2024 Elisa-1 extractable nuclear Ab Qn (S) <0.2 Normal <1.0 [facility] Comment on above: Order Comment: Speci men Type: BLOOD SPECIMENOrdering Facility: [facility] Address: [address] [place] [address] Performed By: #### 5 1774-5, 24122-1, 22085-1, 11153-5, 65985-1, 99164-8, 00168-3, 45005-4 ####[facility] LABIA [id number] [place] [address] [place] AGUILA PET HANDLER Ab Ser-aCncon 2024 Ribonucleoprotein extractable nuclear Ab Qn (S) <0.2 Normal <1.0 [facility] Comment on above: Order Comment: Speci men Type: BLOOD SPECIMENOrdering Facility: [facility] Address: [address] [place] [address] Performed By: #### 5 1774-5, 49788-3, 77760-0, 98492-9, 33306-5, 55561-5, 47669-6, 14812-1 ####[facility] [id number] [place] [address] [place] AGUILA SM IgG Ser-aCncon 2024 Francois extractable nuclear IgG Qn (S) <0.2 Normal <1.0 [facility] Comment on above: Order Comment: Speci men Type: BLOOD SPECIMENOrdering Facility: [facility] Address: [address] [place] [address] Performed By: #### 5 1774-5, 09494-1, 41340-8, 17152-2, 85939-0, 77677-6, 32766-8, 47485-4 ####[facility] [id number] [place] [address] [place] AGUILA SS-A Ab Ser-aCncon 06-23 Sjogrens syndrome-A extractable nuclear Ab Qn (S) <0.2 Normal <1.0 [facility] Comment on above: Order Comment: Speci men Type: BLOOD SPECIMENOrdering Facility: [facility] Address: [address] [place] [address] Result Comment: Test Methodology: Multiplex flow immunoassay. Performed By: #### 5 1774-5, 02842-5, 80100-8, 41638-0, 86448-3, 70946-7, 66671-8, 40994-1 ####[facility] LABCLIA [id number] [place] [address] [place] AGUILA SS-B Ab Ser-aCncon 06-23 Sjogrens syndrome-B extractable nuclear Ab Qn (S) <0.2 Normal <1.0 [facility] Comment on above: Order Comment: Speci men Type: BLOOD SPECIMENOrdering Facility: [facility] Address: [address] [place] [address] Result Comment: Anti -SSB (anti-La) antibody is used as an aid in diagnosis of a variety of systemic autoimmune diseases, especially for Sjogren's syndrome and systemic lupus erythematosus. Clinical correlation is required. Test Methodology: Multiplex flow immunoassay. Performed By: #### 5 1775-5, 03897-0, 11502-4, 18117-4, 70073-4, 32407-3, 04692-0, 20417-0 ####[facility] LABCLIA [id number] [place] [address] [place] HYPERSEN PNEUMON ABon 2024 A. FUMIGATUS #6 AB, PRECIPITIN Not detected Normal None Detected [facility] Comment on above: Order Comment: Nile neil Type: BLOOD SPECIMEN [facility] Address: [address] [place] [address] Performed By: #### T HTO #### [facility] CLIA [id number] [address] [place] [address] A. PULLULANS, AB PRECIPITIN Not detected Normal None Detected [facility] Comment on above: Order Comment: Nile neil Type: BLOOD SPECIMEN [facility] Address: [address] [place] [address] Performed By: #### T HTO #### [facility] CLIA [id number] [address] [place] [address] FUMIGATUS #1 AB, PRECIPITIN Not detected Normal None Detected [facility] Comment on above: Order Comment: Specsandi neil Type: BLOOD SPECIMEN [facility] Address: [address] [place] [address] Performed By: #### T HTO #### [facility] CLIA [id number] [address] [place] [address] M. FAENI AB, PRECIPITIN Not detected Normal None Detected [facility] Comment on above: Order Comment: Speci men Type: BLOOD SPECIMEN [facility] Address: [address] [place] [address] Result Comment: Testing includes antibodies directed at Aureobasidium pullulans, Aspergillus fumigatus #1, Aspergillus fumigatus #6, Micropolyspora faeni, and Doyle Serum. Performed By: [facility] [address] [place] [address]: Alphonse Amaro MD, PhD CLIA Number: [id number] Performed By: #### T HTO #### [facility] CLIA [id number] [address] [place] [address] PIGEON SERUM AB Not detected Normal None Detected [facility] Comment on above: Order Comment: Nile neil Type: BLOOD SPECIMEN [facility] Address: [address] [place] [address] Performed By: #### T HTO #### [facility] CLIA [id number] [address] [place] [address] Elisa-1 extractable nuclear Ab Qn (S)on 06-23-2024 ELISA 1 ANTIBODY QUAL Negative Normal Negative [facility] Comment on above: Order Comment: Nile neil Type: BLOOD SPECIMENOrdering Facility: [facility] Address: [address] [place] [address] Result Comment: Anti -ELISA-1 antibody is used as an aid in diagnosis of polymyositis and dermatomyositis especially with pulmonary involvement. A negative result cannot rule out polymyositis or dermatomyositis. Clinical correlation is required. Test Methodology: Multiplex flow immunoassay. Performed By: #### 5 1775-5, 26400-5, 89007-6, 94557-5, 17002-0, 15083-9, 30148-8, 20322-7 ####[facility] LABCLIA [id number] [facility] [place] [address] [place] POLYMYOSITIS AND DERMATOMYOS ITIS PANELon 06-23-2024 GERARDO INTERP COMMENT See Note Normal [facility] Comment on above: Order Comment: Speci men Type: BLOOD SPECIMEN [facility] Address: [address] [place] [address] Result Comment: Anti nuclear antibodies by IFA negative for homogeneous, speckled, nucleolar, centromere, and nuclear dots patterns. Cytoplasmic antibodies by IFA negative for reticular/AMA, discrete/GW body-like, polar/golgi-like, rods and rings, and cytoplasmic speckled patterns. INTERPRETIVE INFORMATION: GERARDO Interpretive Comment Presence of antinuclear antibodies (GERARDO) is a hallmark feature of systemic autoimmune rheumatic diseases (SARD). However, GERARDO lacks diagnostic specificity and is associated with a variety of diseases (cancers, autoimmune, infectious, and inflammatory conditions) and may also occur in healthy individuals in varying prevalence. The lack of diagnostic specificity requires confirmation of positive GERARDO by more specific serologic tests. GERARDO (nuclear reactivity) positive patterns reported include centromere, homogeneous, nuclear dots, nucleolar, or speckled. GERARDO (cytoplasmic reactivity) positive patterns reported include reticular/AMA, discrete/GW body-like, polar/golgi-like, cytoplasmic speckled or rods and rings. All positive patterns are reported to endpoint titers (1:2560). Reported patterns may help guide differential diagnosis, although they may not be specific for individual antibodies or diseases. Mitotic staining patterns not reported. Negative results do not necessarily rule out SARD. Performed By: #### M YOSPL #### [facility] CLIA [id number] [address] [place] [address] ANTINUCLEAR ANTIBODY (GERARDO) HEP-2, IGG <1:80 Normal <1:80 [facility] Comment on above: Order Comment: Nile neil Type: BLOOD SPECIMEN [facility] Address: [address] [place] [address] Performed By: #### Yanique YOSPL #### [facility] CLIA [id number] [address] [place] [address] EJ (GLYCYL-TRNA SYNTHETASE) ANTIBODY Negative Normal Negative [facility] Comment on above: Order Comment: Lennyi jolynn Type: BLOOD SPECIMEN [facility] Address: [address] [place] [address] Performed By: #### M YOSPL #### [facility] [id number] [address] [place] [address] ONEAL (TYROSYL-TRNA SYNTHETASE) AB Negative Normal Negative [facility] Comment on above: Order Comment: Lennyi jolynn Type: BLOOD SPECIMEN [facility] Address: [address] [place] [address] Result Comment: Oneal a ntibody negative by line immunoassay. No band corresponding to 65 kDa observed by immunoprecipitation. Performed By: #### M YOSPL #### [facility] [id number] [address] [place] [address] ELISA-1 (HISTIDYL-TRNA SYNTHETASE) AB, IGG 1 AU/mL Normal 0-40 [facility] Comment on above: Order Comment: Nile neil Type: BLOOD SPECIMEN [facility] Address: [address] [place] [address] Result Comment: INTE RPRETIVE INFORMATION: Elisa-1 Antibody, IgG 29 AU/mL or less.........Negative 30-40 AU/mL..............Equivocal 41 AU/mL or greater......Positive Presence of Elisa-1 (antihistidyl transfer RNA [t-RNA] synthetase) antibody is associated with polymyositis and may also be seen in patients with dermatomyositis. Elisa-1 antibody is associated with pulmonary involvement (interstitial lung disease), Raynaud phenomenon, arthritis, and tractor mechanic apprentice's hands (implicated in antisynthetase syndrome). Performed By: #### M YOSPL #### [facility] [id number] [address] [place] [address] KS (ASPARAGINYL-TRNA SYNTHETASE) AB Negative Normal Negative [facility] Comment on above: Order Comment: Lennyi jolynn Type: BLOOD SPECIMEN [facility] Address: [address] [place] [address] Result Comment: Ks a ntibody negative by line immunoassay. No band corresponding to 65 kDa observed by immunoprecipitation. Performed By: #### M YOSPL #### [facility] CLIA [id number] [address] [place] [address] MDA5 (CADM-140) AB Negative Normal Negative [facility] Comment on above: Order Comment: Speci men Type: BLOOD SPECIMEN [facility] Address: [address] [place] [address] Performed By: #### M YOSPL #### [facility] CLIA [id number] [address] [place] [address] WA-2 (NUCLEAR HELICASE PROTEIN) ANTIBODY Negative Normal Negative [facility] Comment on above: Order Comment: Speci men Type: BLOOD SPECIMEN [facility] Address: [address] [place] [address] Performed By: #### M YOSPL #### [id number] [address] [place] [address] MYOSITIS INTERPRETIVE INFORMATION See Note Normal [facility] Comment on above: Order Comment: Speci men Type: BLOOD SPECIMEN [facility] Address: [address] [place] [address] Result Comment: INTE RPRETIVE INFORMATION: Dermatomyositis and Polymyositis Panel 2 If present, myositis-specific antibodies (MSAs) are specific for myositis, and may be useful in establishing diagnosis as well as prognosis. MSAs are generally regarded as mutually exclusive with rare exceptions; the occurrence of two or more MSAs should be carefully evaluated in the context of patient's clinical presentation. Myositis-associated antibodies (Maria Elena) may be found in patients with CTD, including overlap syndromes, and are generally not specific for myositis. The following table will help in identifying the association of any antibodies found as either MSAs or Maria Elena. Antibody Specificity . . . . . . . . . . . . MSAs . . . . Maria Elena Elisa-1 (histidyl-tRNA synthetase) Ab, IgG . . X PL-12 (alanyl-tRNA synthetase) Antibody . . X PL-7 (threonyl-tRNA synthetase) Antibody . . X EJ (glycyl-tRNA synthetase) Antibody . . . . X OJ (isoleucyl-tRNA synthetase) Antibody . . X SRP (Signal Recognition Particle) Ab . . . . X Mi-2 (nuclear helicase protein) Antibody . . X P155/140 Antibody . . . . . . . . . . . . . X TIF-1 gamma (155 kDA) Ab . . . . . . . . . X SAE1 (SUMO activating enzyme) Ab . . . . . . X MDA5 (CADM-140) Ab . . . . . . . . . . . . . X NXP2 (Nuclear matrix protein-2) Ab . . . . . X Oneal (tyrosyl-tRNA synthetase) Ab. . . . . . . X Ks (asparaginyl-tRNA synthetase) Ab . . . . X Zo (phenylalanyl-tRNA synthetase) Ab . . . . X This test was developed and its performance characteristics determined by [facility]. It has not been cleared or approved by the US Food and Drug Administration. This test was performed in a CLIA certified laboratory and is intended for clinical purposes. Performed By: #### M YOSPL #### [facility] IA [id number] [address] [place] [address] NXP2 (NUCLEAR MATRIX PROTEIN-2) AB Negative Normal Negative [facility] Comment on above: Order Comment: Speci men Type: BLOOD SPECIMEN Ordering Facility: [facility] Address: [address] [place] [address] Performed By: #### M YOSPL #### [facility] CLIA [id number] [address] [place] [address] OJ (ISOLEUCYL-TRNA SYNTHETASE) ANTIBODY Negative Normal Negative [facility] Comment on above: Order Comment: Speci men Type: BLOOD SPECIMEN Ordering Facility: [facility] Address: [address] [place] [address] Performed By: #### M YOSPL #### [facility] IA [id number] [address] [place] [address] P155/140 ANTIBODY Negative Normal Negative [facility] Comment on above: Order Comment: Speci men Type: BLOOD SPECIMEN Ordering Facility: [facility] Address: [address] [place] [address] Performed By: #### M YOSPL #### [id number] [address] [place] [address] PL-12 (ALANYL-TRNA SYNTHETASE) ANTIBODY Negative Normal Negative [facility] Comment on above: Order Comment: Speci men Type: BLOOD SPECIMEN Ordering Facility: [facility] Address: [address] [place] [address] Performed By: #### M YOSPL #### [id number] [address] [place] [address] PL-7 (THREONYL-TRNA SYNTHETASE) ANTIBODY Negative Normal Negative [facility] Comment on above: Order Comment: Speci men Type: BLOOD SPECIMEN Ordering Facility: [facility] Address: [address] [place] [address] Performed By: #### M YOSPL #### [facility] [id number] [address] [place] [address] SAE1 (SUMO ACTIVATING ENZYME) AB Negative Normal Negative [facility] Comment on above: Order Comment: Speci men Type: BLOOD SPECIMEN Ordering Facility: [facility] Address: [address] [place] [address] Performed By: #### M YOSPL #### [place] [id number] [address] [place] [address] SRP (SIGNAL RECOGNITION PARTICLE) AB Negative Normal Negative [facility] Comment on above: Order Comment: Speci men Type: BLOOD SPECIMEN Ordering Facility: [facility] Address: [address] [place] [address] Performed By: #### M YOSPL #### [facility] [id number] [address] [place] [address] TIF-1 GAMMA (155 KDA) AB Negative Normal Negative [facility] Comment on above: Order Comment: Speci men Type: BLOOD SPECIMEN Ordering Facility: [facility] Address: [address] [place] [address] Performed By: #### M YOSPL #### [facility] [id number] [address] [place] [address] ZO (PHENYLALANYL-TRNA SYNTHETASE) AB Negative Normal Negative [facility] Comment on above: Order Comment: Speci men Type: BLOOD SPECIMEN Ordering Facility: [facility] Address: [address] [place] [address] Result Comment: Zo a ntibody negative by line immunoassay. No bands corresponding to 68 and 58 kDa observed by immunoprecipitation. Performed By: [facility] [address] [place] [address]: Alphonse Amaro MD, PhD CLIA Number: [id number] Performed By: #### M YOSPL #### [facility] CLIA [id number] [address] [place] [address] RNA POLYMERASE III ABon - RNA POLYMERASE III AB 3 Units Normal 0-19 [facility] Comment on above: Order Comment: Speci men Type: BLOOD SPECIMEN Ordering Facility: [facility] Address: [address] [place] [address] Result Comment: INTE RPRETIVE INFORMATION: RNA Polymerase III Antibody, IgG 19 Units or less ......Negative 20 - 39 Units .........Weak Positive 40 - 80 Units .........Moderate Positive 81 Units or greater ...Strong Positive The presence of RNA polymerase III IgG antibody, when considered in conjunction with other laboratory and clinical findings, is an aid in the diagnosis of systemic sclerosis (SSc) with increased incidence of skin involvement and renal crisis with the diffuse cutaneous form of SSc. RNA polymerase III IgG antibody occur in about 11-23 percent of SSc patients, and typically in the absence of anti-centromere and anti-Scl-70 antibodies. A negative result indicates no detectable IgG antibodies to the dominant antigen of RNA polymerase III and does not rule out the possibility of SSc. False-positive results may also occur due to non-specific binding of immune complexes. Strong clinical correlation is recommended. If clinical suspicion remains, consider additional testing for other antibodies associated with SSc, including centromere, Scl-70, U3-PET HANDLER, PM/Scl, or Th/To. Performed By: [facility] [address] [place] [address]: Alphonse Amaro MD, PhD CLIA Number: [id number] Performed By: #### T HTO #### [facility] CLIA [id number] [address] [place] [address] Rheumatoid fact SerPl-aCncon 06-23-2024 Rheumatoid factor Qn [IU]/mL Normal <16 [facility] Comment on above: Order Comment: Speci men Type: BLOOD SPECIMEN Ordering Facility: [facility] Address: [address] [place] [address] Performed By: #### T HTO #### [facility] CLIA [id number] [address] [place] [address] Ribonucleoprotein extractabl e nuclear Ab Qn (S)on 06-23-2024 ANTI-PET HANDLER QUAL Negative Normal Negative [facility] Comment on above: Order Comment: Speci men Type: BLOOD SPECIMENOrdering Facility: [facility] Address: [address] [place] [address] Performed By: #### 5 1775-5, 00056-7, 90883-7, 30669-4, 15898-5, 03589-1, 57440-1, 05889-5 ####[facility] [id number] [place] [address] [place] RIBOSOMAL PET HANDLER QUAL Negative Normal Negative [facility] Comment on above: Order Comment: Speci jolynn Type: BLOOD SPECIMENOrdering Facility: [facility] Address: [address] [place] [address] Result Comment: Anti -Ribosomal RNA (Ribosomal P) antibody is used as an aid in diagnosis of systemic autoimmune diseases especially systemic lupus erythematosus and mixed connective tissue disease. Cross-reactivity with Anti-francois antibody is not uncommon. Clinical correlation is required. Test Methodology: Multiplex flow immunoassay. Performed By: #### 5 1775-5, 97101-6, 17958-7, 81562-0, 62277-7, 81609-0, 61587-4, 38976-7 ####[facility] [id number] [place] [id number] [place] SCL-70 extractable nuclear I gG IA Qn (S)on 06-23-2024 SCLERODERMA AB QUAL Negative Normal Negative [facility] Comment on above: Order Comment: Speci jolynn Type: BLOOD SPECIMENOrdering Facility: [facility] Address: [address] [place] [address] Performed By: #### 5 1775-5, 91046-3, 80498-6, 40163-9, 94923-1, 01029-6, 59151-1, 40351-2 ####[facility] [id number] [place] [address] [place] SCLERODERMA IGG AB <0.2 Normal <1.0 [facility] Comment on above: Order Comment: Nile neil Type: BLOOD SPECIMENOrdering Facility: [facility] Address: [address] [place] [address] Result Comment: Scl- 70/Scleroderma antibody test is used as an aid in diagnosis of systemic sclerosis especially the diffuse cutaneous form. A negative result cannot rule out systemic sclerosis. The final interpretation should consider clinical picture and other test results such as anti-centromere antibody. Test Methodology: Multiplex flow immunoassay. Performed By: #### 5 5-5, 30006-7, 97334-5, 69778-2, 59421-5, 68098-1, 02681-3, 51334-6 ####[facility] [id number] [address] [address] [place] Sjogrens syndrome-A extracta ble nuclear Ab Qn (S)on 06-23-2024 SSA ANTIBODY QUAL Negative Normal Negative [facility] Comment on above: Order Comment: Lennyi men Type: BLOOD SPECIMENOrdering Facility: [facility] Address: [address] [place] [address] Performed By: #### 5 1775-5, 75226-3, 79749-1, 10565-6, 27381-1, 49375-1, 10321-2, 77562-7 ####[facility] [id number] [address] [address] [place] Sjogrens syndrome-B extracta ble nuclear Ab Qn (S)on 06-23-2024 SSB ANTIBODY QUAL Negative Normal Negative [facility] Comment on above: Order Comment: Speci men Type: BLOOD SPECIMENOrdering Facility: [facility] Address: [address] [place] [address] Performed By: #### 5 1775-5, 01528-1, 73835-8, 05221-8, 33588-8, 81278-1, 21351-9, 83946-7 ####[facility] [id number] [place] [address] [place] Francois extractable nuclear Ig G Qn (S)on 06-23-2024 SM ANTIBODY QUAL Negative Normal Negative [facility] Comment on above: Order Comment: Speci jolynn Type: BLOOD SPECIMENOrdering Facility: [facility] Address: [address] [place] [address] Result Comment: Anti -Sm (Francois) antibody is used as an aid in diagnosis of systemic lupus erythematosus and its presence is associated with renal disease. A negative result cannot rule out systemic lupus erythematosus. Clinical correlation is required. Test Methodology: Multiplex flow immunoassay. Performed By: #### 5 5-5, 43270-7, 62370-6, 46216-0, 88176-4, 56555-9, 70968-5, 19939-4 ####[facility] [id number] [place] [address] [place] TH/TO ANTIBODYon 06-23-2024 Th-To Ab Line blot Ql (S) Negative Normal Negative [facility] Comment on above: Order Comment: Speci men Type: BLOOD SPECIMEN Ordering Facility: [facility] Address: [address] [place] [address] Performed By: #### T HTO #### [facility] CLIA [id number] [address] [place] [address] TPMT PHENOTYPE/ENZYME ACTIVI TYon 06-23-2024 TPMT ACTIVITY 24.6 U/mL Normal 24.0-44.0 [facility] Comment on above: Order Comment: Speci jolynn Type: BLOOD SPECIMEN Ordering Facility: [facility] Address: [address], [place] [address] Result Comment: INTE RPRETIVE INFORMATION: Thiopurine Methyltransferase, RBC Normal TPMT activity: 24.0-44.0 U/mL................Individuals are predicted to be at low risk of bone marrow toxicity (myelosuppression) as a consequence of standard thiopurine therapy; no dose adjustment is recommended. Intermediate TPMT activity: 17.0-23.9 U/mL................Individuals are predicted to be at intermediate risk of bone marrow toxicity (myelosuppression) as a consequence of standard thiopurine therapy; a dose reduction and therapeutic drug management is recommended. Low TPMT activity: less than 17.0 U/mL...........Individuals are predicted to be at high risk of bone marrow toxicity (myelosuppression) as a consequence of standard thiopurine dosing. It is recommended to avoid the use of thiopurine drugs. High TPMT activity: greater than 44.0 U/mL........Individuals are not predicted to be at risk for bone marrow toxicity (myelosuppression) as a consequence of standard thiopurine dosing, but may be at risk for therapeutic failure due to excessive inactivation of thiopurine drugs. Individuals may require higher than the normal standard dose. Therapeutic drug management is recommended. The TPMT, RBC assay is used as a screen to detect individuals with low and intermediate TPMT activity who may be at risk for myelosuppression when exposed to standard doses of thiopurines, including azathioprine (Imuran) and 6-mercaptopurine (Purinethol). TPMT is the primary metabolic route for inactivation of thiopurine drugs in the bone marrow. When TPMT activity is low, it is predicted that proportionately more 6-mercaptopurine can be converted into the cytotoxic 6-thioguanine nucleotides that accumulate in the bone marrow causing excessive toxicity. The activity of TPMT is measured by the nanomoles of 6-methylmercaptopurine (inactive metabolite) produced per 1 mL of packed red blood cells, (U/mL). TPMT phenotype testing does not replace the need for clinical monitoring of patients treated with thiopurine drugs. Genotype for TPMT cannot be inferred from TPMT activity (phenotype). Phenotype testing should not be requested for patients currently treated with thiopurine drugs. Current TPMT phenotype may not reflect future TPMT phenotype, particularly in patients who received blood transfusion within 30-60 days of testing. TPMT enzyme activity can be inhibited by several drugs such as: naproxen (Aleve), ibuprofen (Advil, Motrin), ketoprofen (Orudis), furosemide (Lasix), sulfasalazine (Azulfidine), mesalamine (Asacol), olsalazine (Dipentum), mefenamic acid (Ponstel), thiazide diuretics, and benzoic acid inhibitors. TPMT inhibitors may contribute to falsely low results; patients should abstain from these drugs for at least 48 hours prior to TPMT testing. Falsely low results may also occur as a result of inappropriate specimen handling and hemolysis. This test was developed and its performance characteristics determined by [facility]. It has not been cleared or approved by the [place] Food and Drug Administration. This test was performed in a CLIA certified laboratory and is intended for clinical purposes. Performed By: [facility] [address] [place] [address] [address] [address]: Alphonse Amaro MD, PhD CLIA Number: [id number] Performed By: #### T HTO #### [facility] CLIA [id number] [address] [place] [address] cCP IgG SerPl-aCncon 025 Cyclic citrullinated peptide IgG Qn 20 Units High <20 [facility] Comment on above: Order Comment: Speci men Type: BLOOD SPECIMEN Ordering Facility: [facility] Address: [address] [place] [address] Performed By: #### T HTO #### [facility] CLIA [id number] [address] [place] [address] Monica 06-04-2024 CNPN Telephone (PULMMN) MAKENNA ANDRE ([id number]) 1955 F Date Time Provider Department 06/04/24 EMELY SWAN During your visit today, we recorded the following information about you: Emely Swan RN 06/04/2024 2:21 PM Signed 06/04/2024: 1420: Pt was sent education to her residence regarding cellcept, ILD, esbriet, OFEV, and high protein diet. Other information given as to resources- nursing triage and scheduling phone numbers. Emely Swan RN Allergies As of Date: 06/04/2024 Noted Allergy Reaction DARVOCET-N 100 (PROPOXYPHENE N-AC*08/27/2007 16 - Unknown Comments: numbness PENICILLINS 10/07/2012 4 - Hives Date Reviewed: 06/03/2024 Reviewed by: Salvador Marin MD - Fully Assessed Prescriptions as of 06/04/2024 - fluticasone-salmetero l (ADVAIR DISKUS) 500-50 mcg/dose dsdv Inhale 1 Puff as instructed two times a day. Rinse and gargle mouth with water after each use. - albuterol HFA (PROVENTIL HFA, VENTOLIN HFA) 90 mcg/actuation inhaler Inhale 2 Puffs as instructed every 6 hours as needed for wheezing/shortness of breath. - TYVASO DPI 64 mcg dry powder inhaler Inhale 64 mcg as instructed four times daily. - RED BEET ROOT-SOUR CANNON EXT ORAL Take by mouth. - OXYGEN, HOME THERAPY, Inhale 6-10 L/min as instructed continuous. - dilTIAZem LA (CARDIZEM LA) 240 mg 24 hr tablet Take 240 mg by mouth once daily. - acetaminophen (TYLENOL ARTHRITIS PAIN) 650 mg CR tablet Take 1 tablet by mouth every 8 hours as needed for pain. - cyanocobalamin (VITAMIN B-12) 1,000 mcg tab Take 1,000 mcg by mouth once daily. - Chromium Picolinate 200 mcg tab Take 1 tablet by mouth once daily. - vitamin E, dl,tocopheryl acet, (VITAMIN E, DL, ACETATE,) 180 mg (400 unit) capsule Take 1 capsule by mouth once daily. - Glucosamine-Chondroit in (OSTEO BI-FLEX) 250-200 mg tab Take 2 tablets by mouth once daily. - potassium chloride ER (KLOR-CON) 20 mEq tablet Take 1 tablet by mouth once daily. - calcium carb-D3-mag ox-zinc ox (NISH MAG ZINC PLUS D3) 333 mg-133 unit -133 mg-5 mg tab Take 1 tablet by mouth once daily. - levothyroxine (SYNTHROID) 50 mcg tablet Take 1 tablet by mouth daily before breakfast. - pravastatin (PRAVACHOL) 20 mg tablet Take 1 tablet by mouth once daily. - turmeric root extract 500 mg cap Take 1 capsule by mouth once daily. - vit A and D3 in cod liver oil 1,250-135 unit cap Take 1 capsule by mouth once daily. - furosemide (LASIX) 40 mg tablet Take 1 tablet by mouth once daily. Patient not taking daily-will try to take at least days a week - Echinacea 500 mg cap Take 1 capsule by mouth two times a day. - lisinopril 10 mg tablet Take 1 tablet by mouth once daily. - Cholecalciferol, Vitamin D3, 2,000 unit cap Take 1 tablet by mouth once daily. - vitamin A-ascorbic acid-vitamin E-minerals (OCUVITE) Tab Take 1 tablet by mouth once daily. - XVM-Qgqzuioya-Kyqtiha nophen (ALLERGY SINUS PE) 2-5-325 mg ORAL Tab Take by mouth as needed. - GARLIC 1,000 MG CAP Take one tablet daily. - aspirin(ADULT LOW DOSE ASPIRIN 81 MG TAB, DELAYED RELEASE) Take one(1) tablet daily. - multivitamins(DAILY MULTIVITAMIN TAB) Take one(1) tablet daily. 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] 08/27/2007 Class: Chronic FAMILY HX ISCHEM HEART DIS [Z82.49] OBESITY NOS [E66.9] IMPAIRED FASTING GLUCOSE [R73.01] 08/27/2007 Screening for colon cancer [Z12.11] 10/07/2012 At risk for osteoporosis [Z91.89] 08/25/2013 Acute respiratory failure with hypoxia (HCC) [J*10/02/2023 Pulmonary hypertension, unspecified (HCC) [I27.*04/30/2024 Encounter Status:Closed by EMELY SWAN on 06/04/24 [facility] CNOVon 06-03-2024 CNOV Office Visit ([facility] ) MAKENNA ANDRE ([id number]) 1955 F Date Time Provider Department 06/03/24 1:00 PM SALVADOR MARIN [facility] During your visit today, we recorded the following information about you: Temperature Pulse Respiration Blood pressure 98.6 degrees 100/minute 18/minute 155/65 Weight Height 66.7 kg 1.549 m Salvador Marin MD 06/03/2024 2:01 PM Signed Pulmonary Medicine NEW INTERSTITIAL LUNG DISEASE OUTPATIENT CONSULTATION Referring Physician: No ref. provider found Date of service: 06/03/24 History of Present Illness: 68F here for ILD evaluation. Referred by PH team; ospitalized for acute (on chronic) hypoxic respiratory failure (10/01-10/06) in which work-up revealed presence of significant interstitial lung disease/fibrosis on CT chest and presence of pulmonary hypertension as suggested by echo. She eventually underwent inpatient RHC which was impressive for precapillary PH (results below). She presents today to establish care in clinic. Recommendations at time of discharge were to undergo SNIFF testing given elevation in R hemidiaphragm as well as initiation of inhaled treprostinil. With regards to patients history, patient had no respiratory issues the majority of her life. This all changed last Spring (08/2022) when she started to develop leg swelling, but ironically no shortness of breath. She went to PCP and was immediately sent to ED. In [place] ED she underwent imaging and she was told she had double pneumonia not from bacterial or virus in which she was placed on abx. She was also placed on oxygen at the time. Symptoms predominantly were reduced energy. Denied SOB/dyspnea, coughing, wheezing, or palpitations. She believes this pneumonia was potentially related to her hip surgery which she had 1 month before this all started. She was being seen by a battery tester in [place] and was told she may have COPD. She was placed on Advair 500/50 BID in which she was prescribed this since 07/2023 with minimal benefit. She was referred to [facility] for second opinion and on arrival patient was found to be in acute on chronic hypox respiratory failure and thus sent to hospital to be further evaluated with results discussed above. Since her hospitalization she was discharged on 6LNC (increased from 4LNC) and started on Tyvaso DPI. With regards to later, she endorses marked improvement in energy and symptoms overall since starting the Tyvaso. She has reduced her O2 to 5LNC as 6L was too much and I'm still doing OK. Denies any pedal edema, chest pain, shortness of breath, palpitations, fevers, chills, or NS. Weight is stable. She never grew up on farm. She owns inside cat/dog (pug/bulldog). Denies birds at this time. She did have a bird, cockateel for about 6 years over 28 years ago. Denies any bird exposures, rodent manifestations, bats exposures, jacuzzi, or mold in the house. 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 + dust exposure in which she frequently blew black out of her nose. Denies any unusual hobbies. Had remote cigarette use predominanly socially 3 cigarettes/week, last cigarette was > 40 years ago. Denies drug use, ETOH abuse (occasional social use). Has been on statin for years. Has no personal hx of AI. Family hx of lupus (cousins). + arthritis involving hands. mMRC: Date mMRC 06/03/24 4 Review of Systems: All other systems reviewed and are negative (except as per HPI). Past Medical AND Surgical History: PAST MEDICAL HISTORY Diagnosis Date Allergic rhinitis, cause unspecified Essential hypertension, benign Family history of ischemic heart disease father age 50, brother age 42 Obesity, unspecified PAST SURGICAL HISTORY Procedure Laterality Date COLONOSCOPY FLX DX W/COLLJ SPEC WHEN PFRMD 11-01-12 PAST SURGICAL HISTORY OF 1992 REMOVAL OF BENIGN CYST-RIGHT SIDE OF NECK TONSILLECTOMY AND ADENOIDECTOMY AGE 12/> 1992 Social History: Smoking history: reports that she has never smoked. She does not have any smokeless tobacco history on file. Drug Use: No Family History: FAMILY HISTORY Problem Relation Age of Onset Heart Father [place] - first age 40's, CVA age 50 Stroke Father CVA - first age 42, CVA age 50 Hypertension Mother Diabetes Mother Heart Brother age 41; also heavy etoh use Heart Brother stented age 42 Hypertension Brother Breast Cancer Maternal Aunt x2 Heart Paternal Uncle x2 Allergies Mother Cancer Mother pancreatic cancer Medications: Current Outpatient Medications Medication Sig TYVASO DPI 64 mcg dry powder inhaler Inhale 64 mcg as instructed four times daily. RED BEET ROOT-SOUR CANNON EXT ORAL Take by mouth. OXYGEN, HOME THERAPY, Inhale 6-10 L/min (more content not included)... [facility] CNPN Telephone (PULMSF) MAKENNA ANDRE ([id number]) 1955 F Date Time Provider Department 05/29/24 JASON MACIAS [facility] During your visit today, we recorded the following information about you: Jason Macias APRN.UPSETTER SETTER UP 05/29/2024 2:44 PM Signed Spoke with the patient regarding the results of 05/16/[address] chest noting consistent findings of ILD. Patient would be okay with seeing an ILD specialist in [place] for further workup and evaluation. Will send note to clerical pool to schedule patient with Dr. Francois as a new ILD consult. All questions answered. Allergies As of Date: 05/29/2024 Noted Allergy Reaction DARVOCET-N 100 (PROPOXYPHENE N-AC*08/27/2007 16 - Unknown Comments: numbness PENICILLINS 10/07/2012 4 - Hives Date Reviewed: 04/29/2024 Reviewed by: Bassem Case APRN.FUR COAT SEWER - Fully Assessed Reason for Visit: Appointment [186] Results [95] Prescriptions as of 05/29/2024 - TYVASO DPI 64 mcg dry powder inhaler Inhale 64 mcg as instructed four times daily. - RED BEET ROOT-SOUR CANNON EXT ORAL Take by mouth. - albuterol HFA (PROVENTIL HFA, VENTOLIN HFA) 90 mcg/actuation inhaler Inhale 2 Puffs as instructed every 6 hours as needed for wheezing/shortness of breath. - fluticasone-salmetero l (ADVAIR DISKUS) 500-50 mcg/dose dsdv Inhale 1 Puff as instructed two times a day. Rinse and gargle mouth with water after each use. - OXYGEN, HOME THERAPY, Inhale 6-10 L/min as instructed continuous. - dilTIAZem LA (CARDIZEM LA) 240 mg 24 hr tablet Take 240 mg by mouth once daily. - acetaminophen (TYLENOL ARTHRITIS PAIN) 650 mg CR tablet Take 1 tablet by mouth every 8 hours as needed for pain. - cyanocobalamin (VITAMIN B-12) 1,000 mcg tab Take 1,000 mcg by mouth once daily. - Chromium Picolinate 200 mcg tab Take 1 tablet by mouth once daily. - vitamin E, dl,tocopheryl acet, (VITAMIN E, DL, ACETATE,) 180 mg (400 unit) capsule Take 1 capsule by mouth once daily. - Glucosamine-Chondroit in (OSTEO BI-FLEX) 250-200 mg tab Take 2 tablets by mouth once daily. - potassium chloride ER (KLOR-CON) 20 mEq tablet Take 1 tablet by mouth once daily. - calcium carb-D3-mag ox-zinc ox (NISH MAG ZINC PLUS D3) 333 mg-133 unit -133 mg-5 mg tab Take 1 tablet by mouth once daily. - levothyroxine (SYNTHROID) 50 mcg tablet Take 1 tablet by mouth daily before breakfast. - pravastatin (PRAVACHOL) 20 mg tablet Take 1 tablet by mouth once daily. - turmeric root extract 500 mg cap Take 1 capsule by mouth once daily. - vit A and D3 in cod liver oil 1,250-135 unit cap Take 1 capsule by mouth once daily. - furosemide (LASIX) 40 mg tablet Take 1 tablet by mouth once daily. Patient not taking daily-will try to take at least days a week - Echinacea 500 mg cap Take 1 capsule by mouth two times a day. - lisinopril 10 mg tablet Take 1 tablet by mouth once daily. - Cholecalciferol, Vitamin D3, 2,000 unit cap Take 1 tablet by mouth once daily. - vitamin A-ascorbic acid-vitamin E-minerals (OCUVITE) Tab Take 1 tablet by mouth once daily. - GNA-Jmxgfcvfg-Lqfyrhk nophen (ALLERGY SINUS PE) 2-5-325 mg ORAL Tab Take by mouth as needed. - GARLIC 1,000 MG CAP Take one tablet daily. - aspirin(ADULT LOW DOSE ASPIRIN 81 MG TAB, DELAYED RELEASE) Take one(1) tablet daily. - multivitamins(DAILY MULTIVITAMIN TAB) Take one(1) tablet daily. 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 [Z01.419] 08/27/2007 Class: Chronic FAMILY HX ISCHEM HEART DIS [Z82.49] OBESITY NOS [E66.9] IMPAIRED FASTING GLUCOSE [R73.01] 08/27/2007 Screening for colon cancer [Z12.11] 10/07/2012 At risk for osteoporosis [Z91.89] 08/25/2013 Acute respiratory failure with hypoxia (HCC) [J*10/02/2023 Pulmonary hypertension, unspecified (HCC) [I27.*04/30/2024 Encounter Status:Closed by JASON MACIAS on 05/29/24 Normal [facility] Absolute neutrophil countOrd ered By: John Wheatley on 05-19-2024 Neutrophils (Bld) [#/Vol] 7.3 10*3/uL 2.0-7.7 [facility] Albumin to globulin ratioOrd ered By: John Wheatley on 05-19-2024 Albumin/Globulin [Mass ratio] 0.7 {ratio} Low 0.9-2.4 [facility] Basophil percentageOrdered B y: John Wheatley on 05-19-2024 Basophils/100 WBC (Bld) 0.4 % 0-1 [facility] Bilirubin, totalOrdered By: John Wheatley on 05-19-2024 Bilirubin [Mass/Vol] 0.50 mg/dL 0.20-1.00 [facility] Comment on above: For patients on eltr ombopag therapy, use of Dimension [place] TBIL is not recommended. Blood urea nitrogen (BUN)/cr eatinine ratioOrdered By: John Wheatley on 05-19-2024 Urea nitrogen/Creatinine [Mass ratio] 14.7 mg/mg 10- [facility] CBC W/Diff, Automatedon 04-28 Absolute Lymph 1.48 X10 3/uL Normal 0.83-4.51 [facility] Comment on above: Order Comment: DR QUINTON CARRASCO ORDERED BMP LIPID CBCD.DR WHEATLEY ORDERED CMP LIPID. RANGFRANKI Performed By: #### L 500.4100, L100.0100, L500.4050 ####[facility] [address] [place], [address] Absolute Neut 7.3 X10 3/uL Normal 2.0-7.7 [facility] Comment on above: Order Comment: DR QUINTON CARRASCO ORDERED BMP LIPID CBCD.DR WHEATLEY ORDERED CMP LIPID. RANGFRANKI Performed By: #### L 500.4100, L100.0100, L500.4050 ####[facility] [address] [place], [address] Basophils/100 WBC (Bld) 0.4 % Normal 0-1 [facility] Comment on above: Order Comment: DR QUINTON CARRASCO ORDERED BMP LIPID CBCD.DR WHEATLEY ORDERED CMP LIPID. RANGFRANKI Performed By: #### L 500.4100, L100.0100, L500.4050 ####[facility] [address] [place], [address] Eosinophils/100 WBC (Bld) 2.0 % Normal 0-5 [facility] Comment on above: Order Comment: DR QUINTON CARRASCO ORDERED BMP LIPID CBCD.DR WHEATLEY ORDERED CMP LIPID. RANGLE Performed By: #### L 500.4100, L100.0100, L500.4050 ####[facility] [address] [place], [address] Erythrocyte distribution width (RBC) [Ratio] 14.8 % High 11.6-14.6 [facility] Comment on above: Order Comment: DR QUINTON CARRASCO ORDERED BMP LIPID CBCD.DR WHEATLEY ORDERED CMP LIPID. RANGLE Performed By: #### L 500.4100, L100.0100, L500.4050 ####[facility] [address] [place], [address] Hematocrit (Bld) [Volume fraction] 42.9 % Normal 37-47 [facility] Comment on above: Order Comment: DR QUINTON CARRASCO ORDERED BMP LIPID CBCD.DR WHEATLEY ORDERED CMP LIPID. RANGLE Performed By: #### L 500.4100, L100.0100, L500.4050 ####[facility] [address] [place], [address] Hemoglobin (Bld) [Mass/Vol] 12.7 g/dL Normal 12.0-15. 0 [facility] Comment on above: Order Comment: DR QUINTON CARRASCO ORDERED BMP LIPID CBCD.DR WHEATLEY ORDERED CMP LIPID. RANGLE Performed By: #### L 500.4100, L100.0100, L500.4050 ####[facility] [address] [place], [address] IG% 0.400 Normal 0.0-0.9 [facility] Comment on above: Order Comment: DR QUINTON CARRASCO ORDERED BMP LIPID CBCD.DR WHEATLEY ORDERED CMP LIPID. RANGLE Result Comment: IG% - Immature Granulocytes (promyelocytes, myelocytes andmetamyelocytes) > 1% indicates that a LEFT SHIFT is Present. Performed By: #### L 500.4100, L100.0100, L500.4050 ####[facility] [address] [place], [address] Lymphocytes/100 WBC (Bld) 15.4 % Low 19-41 [facility] Comment on above: Order Comment: DR QUINTON CARRASCO ORDERED BMP LIPID CBCD.DR WHEATLEY ORDERED CMP LIPID. RANGLE Performed By: #### L 500.4100, L100.0100, L500.4050 ####[facility] [address] [place], [address] MCH (RBC) [Entitic mass] 28.2 pg Normal 27.0-32.0 [facility] Comment on above: Order Comment: DR QUINTON CARRASCO ORDERED BMP LIPID CBCD.DR WHEATLEY ORDERED CMP LIPID. RANGLE Performed By: #### L 500.4100, L100.0100, L500.4050 ####[facility] [address] [place], [address] MCHC (RBC) [Mass/Vol] 29.6 g/dL Low 32-36 [facility] Comment on above: Order Comment: DR QUINTON CARRASCO ORDERED BMP LIPID CBCD.DR WHEATLEY ORDERED CMP LIPID. RANGLE Performed By: #### L 500.4100, L100.0100, L500.4050 ####[facility] [address] [place], [address] MCV (RBC) [Entitic vol] 95.1 fL Normal 81-99 [facility] Comment on above: Order Comment: DR QUINTON CARRASCO ORDERED BMP LIPID CBCD.DR WHEATLEY ORDERED CMP LIPID. RANGLE Performed By: #### L 500.4100, L100.0100, L500.4050 ####[facility] [address] [place], [address] Monocytes/100 WBC (Bld) 5.9 % Normal 0-10 [facility] Comment on above: Order Comment: DR QUINTON CARRASCO ORDERED BMP LIPID CBCD.DR WHEATLEY ORDERED CMP LIPID. RANGLE Performed By: #### L 500.4100, L100.0100, L500.4050 ####[facility] [address] [place], [address] Neutrophils/100 WBC (Bld) 75.9 % High 47-70 [facility] Comment on above: Order Comment: DR QUINTON CARRASCO ORDERED BMP LIPID CBCD.DR WHEATLEY ORDERED CMP LIPID. RANGLE Performed By: #### L 500.4100, L100.0100, L500.4050 ####[facility] [address] [place], [address] Nucleated RBC (Bld) [#/Vol] 0 10*3/uL Normal 0-5 [facility] Comment on above: Order Comment: DR QUINTON CARRASCO ORDERED BMP LIPID CBCD.DR WHEATLEY ORDERED CMP LIPID. RANGLE Performed By: #### L 500.4100, L100.0100, L500.4050 ####[facility] [address] [place], [address] Platelet mean volume (Bld) [Entitic vol] 10.0 fL Normal 6.2-12.0 [facility] Comment on above: Order Comment: DR QUINTON CARRASCO ORDERED BMP LIPID CBCD.DR WHEATLEY ORDERED CMP LIPID. RANGLE Performed By: #### L 500.4100, L100.0100, L500.4050 ####[facility] [address] [place], [address] Platelets (Bld) [#/Vol] 287 10*3/uL Normal 150-450 [facility] Comment on above: Order Comment: DR QUINTON CARRASCO ORDERED BMP LIPID CBCD.DR WHEATLEY ORDERED CMP LIPID. RANGLE Performed By: #### L 500.4100, L100.0100, L500.4050 ####[facility] [address] [place], [address] RBC (Bld) [#/Vol] 4.51 10*6/uL Normal 4.2-5.4 [facility] Comment on above: Order Comment: DR QUINTON CARRASCO ORDERED BMP LIPID CBCD.DR WHEATLEY ORDERED CMP LIPID. RANGLE Performed By: #### L 500.4100, L100.0100, L500.4050 ####[facility] [address] [place], [address] RDW SD 51.0 fl High 35.1-43.9 [facility] Comment on above: Order Comment: DR QUINTON CARRASCO ORDERED BMP LIPID CBCD.DR WHEATLEY ORDERED CMP LIPID. RANGLE Performed By: #### L 500.4100, L100.0100, L500.4050 ####[facility] [address] [place], [address] WBC (Bld) [#/Vol] 9.6 10*3/uL Normal 4.4-11.0 [facility] Comment on above: Order Comment: DR QUINTON CARRASCO ORDERED BMP LIPID CBCD.DR WHEATLEY ORDERED CMP LIPID. RANGLE Performed By: #### L 500.4100, L100.0100, L500.4050 ####[facility] [address] [place], [address] CNPNon 05-19-2024 CNPN Telephone ([facility]) MAKENNA ANDRE ([id number]) 1955 F Date Time Provider Department 05/19/24 JASON MACIAS [facility] During your visit today, we recorded the following information about you: Bailee Easton RN 05/19/2024 8:39 AM Signed ----- Message from Jason Macias APRN.UPSETTER SETTER UP sent at 05/16/2024 4:57 PM EST ----- Please notify the patient of the following: Your echo shows moderate pulmonary hypertension, but no other significant change in comparison to your echo from September 2023. Please continue to follow up with Dr. Godwin as scheduled to further review echo results. Let me know if you have any questions in the meantime. Jason Gonsalez APRN.Bailee Lemus RN 05/19/2024 8:45 AM Signed Message to patient, does not have any questions at this time. To CB with any concerns. Allergies As of Date: 05/19/2024 Noted Allergy Reaction DARVOCET-N 100 (PROPOXYPHENE N-AC*08/27/2007 16 - Unknown Comments: numbness PENICILLINS 10/07/2012 4 - Hives Date Reviewed: 04/29/2024 Reviewed by: Bassem Case APRN.FUR COAT SEWER - Fully Assessed Prescriptions as of 05/19/2024 - TYVASO DPI 64 mcg dry powder inhaler Inhale 64 mcg as instructed four times daily. - RED BEET ROOT-SOUR CANNON EXT ORAL Take by mouth. - albuterol HFA (PROVENTIL HFA, VENTOLIN HFA) 90 mcg/actuation inhaler Inhale 2 Puffs as instructed every 6 hours as needed for wheezing/shortness of breath. - fluticasone-salmetero l (ADVAIR DISKUS) 500-50 mcg/dose dsdv Inhale 1 Puff as instructed two times a day. Rinse and gargle mouth with water after each use. - OXYGEN, HOME THERAPY, Inhale 6-10 L/min as instructed continuous. - dilTIAZem LA (CARDIZEM LA) 240 mg 24 hr tablet Take 240 mg by mouth once daily. - acetaminophen (TYLENOL ARTHRITIS PAIN) 650 mg CR tablet Take 1 tablet by mouth every 8 hours as needed for pain. - cyanocobalamin (VITAMIN B-12) 1,000 mcg tab Take 1,000 mcg by mouth once daily. - Chromium Picolinate 200 mcg tab Take 1 tablet by mouth once daily. - vitamin E, dl,tocopheryl acet, (VITAMIN E, DL, ACETATE,) 180 mg (400 unit) capsule Take 1 capsule by mouth once daily. - Glucosamine-Chondroit in (OSTEO BI-FLEX) 250-200 mg tab Take 2 tablets by mouth once daily. - potassium chloride ER (KLOR-CON) 20 mEq tablet Take 1 tablet by mouth once daily. - calcium carb-D3-mag ox-zinc ox (NISH MAG ZINC PLUS D3) 333 mg-133 unit -133 mg-5 mg tab Take 1 tablet by mouth once daily. - levothyroxine (SYNTHROID) 50 mcg tablet Take 1 tablet by mouth daily before breakfast. - pravastatin (PRAVACHOL) 20 mg tablet Take 1 tablet by mouth once daily. - turmeric root extract 500 mg cap Take 1 capsule by mouth once daily. - vit A and D3 in cod liver oil 1,250-135 unit cap Take 1 capsule by mouth once daily. - furosemide (LASIX) 40 mg tablet Take 1 tablet by mouth once daily. Patient not taking daily-will try to take at least days a week - Echinacea 500 mg cap Take 1 capsule by mouth two times a day. - lisinopril 10 mg tablet Take 1 tablet by mouth once daily. - Cholecalciferol, Vitamin D3, 2,000 unit cap Take 1 tablet by mouth once daily. - vitamin A-ascorbic acid-vitamin E-minerals (OCUVITE) Tab Take 1 tablet by mouth once daily. - RHY-Afdcyyuzs-Jjcenuf nophen (ALLERGY SINUS PE) 2-5-325 mg ORAL Tab Take by mouth as needed. - GARLIC 1,000 MG CAP Take one tablet daily. - aspirin(ADULT LOW DOSE ASPIRIN 81 MG TAB, DELAYED RELEASE) Take one(1) tablet daily. - multivitamins(DAILY MULTIVITAMIN TAB) Take one(1) tablet daily. 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 [Z01.419] 08/27/2007 Class: Chronic FAMILY HX ISCHEM HEART DIS [Z82.49] OBESITY NOS [E66.9] IMPAIRED FASTING GLUCOSE [R73.01] 08/27/2007 Screening for colon cancer [Z12.11] 10/07/2012 At risk for osteoporosis [Z91.89] 08/25/2013 Acute respiratory failure with hypoxia (HCC) [J*10/02/2023 Pulmonary hypertension, unspecified (HCC) [I27.*04/30/2024 Encounter Status:Closed by BAILEE EASTON on 05/19/24 Normal [facility] Carbon dioxide measurementOr dered By: John Wheatley on 05-19-2024 CO2 [Moles/Vol] 32.0 mmol/L 21.0-32.0 [facility] Chloride measurementOrdered By: John Wheatley on 05-19-2024 Chloride [Moles/Vol] 104 mmol/L 98-107 [facility] Comprehensive Metabolic Prof ilon 05-19-2024 Albumin [Mass/Vol] 3.4 g/dL Normal 3.2-5.0 [facility] Comment on above: Order Comment: Comme nts: Fax to Dr. Hoda Capellan's OfficeDR CARIN ORDERED BMP LIPID CBCD.DR WHEATLEY ORDERED CMP LIPID. RANGLEFax to Dr. H[facility] Performed By: #### L 500.4100, L100.0100, L500.4050 ####[facility] [address] [place], [address] Albumin/Globulin [Mass ratio] 0.7 {ratio} Low 0.9-2.4 [facility] Comment on above: Order Comment: Comme nts: Fax to Dr. Hoda Capellan's OfficeDR MIDANILO ORDERED BMP LIPID CBCD.DR WHEATLEY ORDERED CMP LIPID. RANGLEFax to Dr. H[facility] Performed By: #### L 500.4100, L100.0100, L500.4050 ####[facility] [address] [place], [address] ALK P 100 U/L Normal 45-117 [facility] Comment on above: Order Comment: Comme nts: Fax to Dr. Hoda Capellan's OfficeDR CARNI ORDERED BMP LIPID CBCD.DR WHEATLEY ORDERED CMP LIPID. RANGLEFax to Dr. H[facility] Performed By: #### L 500.4100, L100.0100, L500.4050 ####[facility] [address] [place], [address] ALT [Catalytic activity/Vol] 22 U/L Normal 13-56 [facility] Comment on above: Order Comment: Comme nts: Fax to Dr. Hoda Capellan's OfficeDR CARIN ORDERED BMP LIPID CBCD.DR WHEATLEY ORDERED CMP LIPID. RANGLEFax to Dr. H[facility] Performed By: #### L 500.4100, L100.0100, L500.4050 ####[facility] [address] [place], [address] AST [Catalytic activity/Vol] 10 U/L Low 15-37 [facility] Comment on above: Order Comment: Comme nts: Fax to Dr. Hoda Capellan's OfficeDR CARIN ORDERED BMP LIPID CBCD.DR WHETALEY ORDERED CMP LIPID. RANGLEFax to Dr. H[facility] Performed By: #### L 500.4100, L100.0100, L500.4050 ####[facility] [address] [place], [address] Bilirubin [Mass/Vol] 0.50 mg/dL Normal 0.20-1.00 [facility] Comment on above: Order Comment: Comme nts: Fax to Dr. Hoda Capellan's OfficeDR CARIN ORDERED BMP LIPID CBCD.DR WHEATLEY ORDERED CMP LIPID. RANGLEFax to Dr. [facility] Result Comment: For patients on eltrombopag therapy, use of Dimension [place] TBIL is not recommended. Performed By: #### L 500.4100, L100.0100, L500.4050 ####[facility] [address] [place], [address] BUN/CRE 14.7 RATIO Normal 10-20 [facility] Comment on above: Order Comment: Comme nts: Fax to Dr. Hoda Capellan's OfficeDR CARIN ORDERED BMP LIPID CBCD.DR WHEATLEY ORDERED CMP LIPID. RANGLEFax to Dr. [facility] Performed By: #### L 500.4100, L100.0100, L500.4050 ####[facility] [address] [place], [address] CA,Total 9.8 mg/dL Normal 8.5-10.1 [facility] Comment on above: Order Comment: Comme nts: Fax to Dr. Hoda Capellan's OfficeDR CARIN ORDERED BMP LIPID CBCD.DR WHEATLEY ORDERED CMP LIPID. RANGLEFax to Dr. [facility] Performed By: #### L 500.4100, L100.0100, L500.4050 ####[facility] [address] [place], [address] Chloride [Moles/Vol] 104 mmol/L Normal 98-107 [facility] Comment on above: Order Comment: Comme nts: Fax to Dr. Hoda Capellan's OfficeDR CARIN ORDERED BMP LIPID CBCD.DR WHEATLEY ORDERED CMP LIPID. RANGLEFax to Dr. H[facility] Performed By: #### L 500.4100, L100.0100, L500.4050 ####[facility] [address] [place], [address] CO2 [Moles/Vol] 32.0 mmol/L Normal 21.0-32.0 [facility] Comment on above: Order Comment: Comme nts: Fax to Dr. Hoda Capellan's OfficeDR CARIN ORDERED BMP LIPID CBCD.DR WHEATLEY ORDERED CMP LIPID. RANGLEFax to Dr. [facility] Performed By: #### L 500.4100, L100.0100, L500.4050 ####[facility] [address] [place], [address] Creatinine [Mass/Vol] 0.68 mg/dL Normal 0.55-1.02 [facility] Comment on above: Order Comment: Comme nts: Fax to Dr. Hoda Capellan's OfficeDR CARIN ORDERED BMP LIPID CBCD.DR WHEATLEY ORDERED CMP LIPID. RANGLEFax to Dr. H[facility] Result Comment: The validity of the calculated GFR GFRAA in patients over70 years has not been determined. Clinical correlation isessential. Performed By: #### L 500.4100, L100.0100, L500.4050 ####[facility] [address] [place], [address] EST GFR - AA 111 mL/min Normal >60 [facility] Comment on above: Order Comment: Comme nts: Fax to Dr. Hoda Capellan's OfficeDR CARIN ORDERED BMP LIPID CBCD.DR WHEATLEY ORDERED CMP LIPID. RANGLEFax to Dr. [facility] Result Comment: Afri can [place] GFR Calc Performed By: #### L 500.4100, L100.0100, L500.4050 ####[facility] [address] [place], [address] GAP 5 Normal 5-15 [facility] Comment on above: Order Comment: Comme nts: Fax to Dr. Hoda Capellan's OfficeDR CARIN ORDERED BMP LIPID CBCD.DR WHEATLEY ORDERED CMP LIPID. RANGLEFax to Dr. [facility] Performed By: #### L 500.4100, L100.0100, L500.4050 ####[facility] [address] [place], [address] GFR/1.73 sq M.predicted among non-blacks MDRD (S/P/Bld) [Vol rate/Area] 92 mL/min/{1.73_m2} Normal >60 [facility] Comment on above: Order Comment: Comme nts: Fax to Dr. Hoda Capellan's OfficeDR CARIN ORDERED BMP LIPID CBCD.DR WHEATLEY ORDERED CMP LIPID. RANGLEFax to Dr. [facility] Result Comment: Non- GFR Calc Performed By: #### L 500.4100, L100.0100, L500.4050 ####[facility] [address] [place], [address] Globulin (S) [Mass/Vol] 4.9 g/dL High 2.2-4.2 [facility] Comment on above: Order Comment: Comme nts: Fax to Dr. Hoda Capellan's OfficeDR CARIN ORDERED BMP LIPID CBCD.DR WHEATLEY ORDERED CMP LIPID. RANGLEFax to Dr. [facility] Performed By: #### L 500.4100, L100.0100, L500.4050 ####[facility] [address] [place], [address] Glucose [Mass/Vol] 137 mg/dL High 74-106 [facility] Comment on above: Order Comment: Comme nts: Fax to Dr. Hoda Capellan's OfficeDR CARIN ORDERED BMP LIPID CBCD.DR WHEATLEY ORDERED CMP LIPID. RANGLEFax to Dr. [facility] Result Comment: Fast ing Glucose result greater than or equal to 126 mg/dLsuggests DIABETES MELLITUS per A.D.A. criteria. Performed By: #### L 500.4100, L100.0100, L500.4050 ####[facility] [address] [place], [address] Potassium [Moles/Vol] 3.6 mmol/L Normal 3.5-5.1 [facility] Comment on above: Order Comment: Comme nts: Fax to Dr. Hoda Capellan's OfficeDR CARIN ORDERED BMP LIPID CBCD.DR WHEATLEY ORDERED CMP LIPID. RANGLEFax to Dr. [facility] Performed By: #### L 500.4100, L100.0100, L500.4050 ####[facility] [address] [place], [address] Sodium [Moles/Vol] 142 mmol/L Normal 136-145 [facility] Comment on above: Order Comment: Comme nts: Fax to Dr. Hoda Capellan's OfficeDR CARIN ORDERED BMP LIPID CBCD.DR WHEATLEY ORDERED CMP LIPID. RANGLEFax to Dr. [facility] Performed By: #### L 500.4100, L100.0100, L500.4050 ####[facility] [address] [place], [address] T PROT 8.3 g/dL High 6.4-8.2 [facility] Comment on above: Order Comment: Comme nts: Fax to Dr. Hoda Capellan's OfficeDR CARIN ORDERED BMP LIPID CBCD.DR WHEATLEY ORDERED CMP LIPID. RANGLEFax to Dr. [facility] Performed By: #### L 500.4100, L100.0100, L500.4050 ####[facility] [address] [place], [place], [address] Urea nitrogen [Mass/Vol] 10 mg/dL Normal 7-18 [facility] Comment on above: Order Comment: Comme nts: Fax to Dr. Hoda Capellan's OfficeDR CARIN ORDERED BMP LIPID CBCD.DR WHEATLEY ORDERED CMP LIPID. RANGLEFax to Dr. [facility] Performed By: #### L 500.4100, L100.0100, L500.4050 ####[facility] [address] [place], [place], [address] Eosinophil percentageOrdered By: John Wheatley on 05-19-2024 Eosinophils/100 WBC (Bld) 2.0 % 0-5 [facility] Erythrocyte distribution wid th ratioOrdered By: John Wheatley on 05-19-2024 Erythrocyte distribution width (RBC) [Ratio] 14.8 % High 11.6-14.6 [facility] Erythrocyte distribution wid th standard deviationOrdered By: John Wheatley on 05-19-2024 Erythrocyte distribution width (RBC) [Entitic vol] 51.0 fL High 35.1-43.9 [facility] Estimated glomerular filtrat ion rate (GFR) AmericanOrdered By: John Wheatley on 05-19-2024 Estimated GFR (MDRD) Amer 111 mL/min >60 [facility] Comment on above: GFR Calc Glomerular filtration rate ( GFR) estimationOrdered By: John Wheatley on 05-19-2024 Estimated GFR (MDRD) Non-Af Amer 92 mL/min >60 [facility] Comment on above: Non- GFR Calc Glucose measurementOrdered B y: John Wheatley on 05-19-2024 Glucose [Mass/Vol] 137 mg/dL High 74-106 [facility] Comment on above: Fasting Glucose resu lt greater than or equal to 126 mg/dL suggests DIABETES MELLITUS per A.D.A. criteria. Hematocrit Auto (Bld) [Volum e fraction]Ordered By: John Wheatley on 05-19-2024 Hematocrit (Bld) [Volume fraction] 42.9 % 37-47 [facility] Hemoglobin measurementOrdere d By: John Wheatley on 05-19-2024 Hemoglobin (Bld) [Mass/Vol] 12.7 g/dL 12.0-15. 0 [facility] High density lipoprotein (HD L) measurementOrdered By: John Wheatley on 05-19-2024 Cholesterol in HDL [Mass/Vol] 58 mg/dL >40 [facility] Comment on above: The drugs N-Acetylcy steine and Metamizole may falsely depress this assay. Reference Range HDL <40 mg/dL Low HDL Cholesterol HDL >or= 60 mg/dL High HDL Cholesterol Immature granulocytes/100 WB C Auto (Bld)Ordered By: John Wheatley on 05-19-2024 Immature granulocytes/100 WBC (Bld) 0.400 % 0.0-0.9 [facility] Comment on above: IG% - Immature Granu locytes (promyelocytes, myelocytes and metamyelocytes) > 1% indicates that a LEFT SHIFT is Present. Laboratory - Chemistry and C hemistry - challengeOrdered By: John Wheatley on 05-19-2024 AST [Catalytic activity/Vol] 10 U/L Low 15-37 [facility] Lipid Profileon 05-19-2024 Cholesterol [Mass/Vol] 118 mg/dL Normal 200 [facility] Comment on above: Order Comment: Comme nts: Fax to Dr. Hoda Capellan's OfficeDR MIDANILO ORDERED BMP LIPID CBCD.DR WHEATLEY ORDERED CMP LIPID. RANGLEFax to Dr. Hoda Capellan's Lab Result Comment: <200 mg/dL Desirable 200-240 mg/dL Borderline >240 mg/dL High Risk Performed By: #### L 500.4100, L100.0100, L500.4050 ####[facility] [address] [place], [address] Cholesterol in HDL [Mass/Vol] 58 mg/dL Normal [facility] Comment on above: Order Comment: Comme nts: Fax to Dr. Hoda Capellan's OfficeDR CARIN ORDERED BMP LIPID CBCD.DR WHEATLEY ORDERED CMP LIPID. RANGLEFax to Dr. Hoda Capellan's Lab Result Comment: The drugs N-Acetylcysteine and Metamizole may falselydepress this assay. Reference Range HDL <40 mg/dL Low HDL Cholesterol HDL >or= 60 mg/dL High HDL Cholesterol Performed By: #### L 500.4100, L100.0100, L500.4050 ####[facility] [address] [place], [address] Cholesterol in LDL [Mass/Vol] 44 mg/dL Normal 0-130 [facility] Comment on above: Order Comment: Comme nts: Fax to Dr. Hoda Capellan's OfficeDR MIDANILO ORDERED BMP LIPID CBCD.DR WHEATLEY ORDERED CMP LIPID. RANGLEFax to Dr. Hoda Capellan's Lab Performed By: #### L 500.4100, L100.0100, L500.4050 ####[facility] [address] [place], [address] Cholesterol in VLDL [Mass/Vol] 16 mg/dL Normal 5-40 [facility] Comment on above: Order Comment: Comme nts: Fax to Dr. Hoda Capellan's OfficeDR MIDANILO ORDERED BMP LIPID CBCD.DR WHEATLEY ORDERED CMP LIPID. RANGLEFax to Dr. Hoda Capellan's Lab Performed By: #### L 500.4100, L100.0100, L500.4050 ####[facility] [address] [place], [address] Triglyceride [Mass/Vol] 79 mg/dL Normal [facility] Comment on above: Order Comment: Comme nts: Fax to Dr. Hoda Capellan's OfficeDR CARIN ORDERED BMP LIPID CBCD.DR WHEATLEY ORDERED CMP LIPID. RANGLEFax to Dr. Hoda [facility]ell[facility]'s [facility] Result Comment: The drugs N-Acetylcysteine and Metamizole may falselydepress this assay.Serum Triglycerides Reference Interval Normal <150 mg/dL Borderline high 150 - 199 mg/dL High 200 - 499 mg/dL Very High > or = 500 mg/dL Performed By: #### L 500.4100, L100.0100, L500.4050 ####[facility] [address] [place], [address] Low density lipoprotein (LDL ) cholesterol measurementOrdered By: John Wheatley on 05-19-2024 Cholesterol in LDL [Mass/Vol] 44 mg/dL 0-130 [facility] Lymphocytes Auto (Unsp spec) [#/Vol]Ordered By: John Wheatley on 05-19-2024 Lymphocytes (Bld) [#/Vol] 1.48 10*3/uL 0.83-4.5 1 [facility] Lymphocytes/100 WBC Auto (Un sp spec)Ordered By: John Wheatley on 05-19-2024 Lymphocytes/100 WBC (Bld) 15.4 % Low 19-41 [facility] MCV (mean corpuscular volume ) determinationOrdered By: John Wheatley on 05-19-2024 MCV (RBC) [Entitic vol] 95.1 fL 81-99 [facility] Mean corpuscular hemoglobin (MCH) determinationOrdered By: John Wheatley on 05-19-2024 MCH (RBC) [Entitic mass] 28.2 pg 27.0-32.0 [facility] Mean corpuscular hemoglobin concentration (MCHC) determinationOrdered By: John Wheatley on 05-19-2024 MCHC (RBC) [Mass/Vol] 29.6 g/dL Low 32-36 [facility] Mean platelet volume determi nationOrdered By: John Wheatley on 05-19-2024 Platelet mean volume (Bld) [Entitic vol] 10.0 fL 6.2-12.0 [facility] Monocyte percentageOrdered B y: John Wheatley on 05-19-2024 Monocytes/100 WBC (Bld) 5.9 % 0-10 [facility] Neutrophil percentageOrdered By: John Wheatley on 05-19-2024 Neutrophils/100 WBC (Bld) 75.9 % High 47-70 [facility] Nucleated red blood cell per centageOrdered By: John Wheatley on 05-19-2024 Nucleated RBC/100 WBC (Bld) [Ratio] 0 % 0-5 [facility] Platelet countOrdered By: Gómez Wheatley on 05-19-2024 Platelets (Bld) [#/Vol] 287 10*3/uL 150-450 [facility] Potassium measurementOrdered By: John Wheatley on 05-19-2024 Potassium [Moles/Vol] 3.6 mmol/L 3.5-5.1 [facility] RBC Auto (Bld) [#/Vol]Ordere d By: John Wheatley on 05-19-2024 RBC (Bld) [#/Vol] 4.51 10*6/uL 4.2-5.4 [facility] Serum anion gap measurementO rdered By: John Wheatley on 05-19-2024 Anion gap [Moles/Vol] 5 mmol/L 5-15 [facility] Serum globulin measurementOr dered By: John Wheatley on 05-19-2024 Globulin (S) [Mass/Vol] 4.9 g/dL High 2.2-4.2 [facility] Serum or plasma alanine larios otransferase (ALT) measurementOrdered By: John Wheatley on 05-19-2024 ALT [Catalytic activity/Vol] 22 U/L 13-56 [facility] Serum or plasma albumin juanpablo urement (mass/volume)Ordered By: John Wheatley on 05-19-2024 Albumin [Mass/Vol] 3.4 g/dL 3.2-5.0 [facility] Serum or plasma alkaline yady sphatase measurementOrdered By: John Wheatley on 05-19-2024 ALP [Catalytic activity/Vol] 100 U/L 45-117 [facility] Serum or plasma calcium juanpablo urement (mass/volume)Ordered By: John Wheatley on 05-19-2024 Calcium [Mass/Vol] 9.8 mg/dL 8.5-10.1 [facility] Serum or plasma cholesterol measurement (mass/volume)Ordered By: John Wheatley on 05-19-2024 Cholesterol [Mass/Vol] 118 mg/dL <200 [facility] Comment on above: <200 mg/dL Desirable 200-240 mg/dL Borderline >240 mg/dL High Risk Serum or plasma creatinine m easurement (mass/volume)Ordered By: John Wheatley on 05-19-2024 Creatinine [Mass/Vol] 0.68 mg/dL 0.55-1.02 [facility] Comment on above: The validity of the calculated GFR & GFRAA in patients over 70 years has not been determined. Clinical correlation is essential. Serum or plasma urea nitroge n measurement (mass/volume)Ordered By: John Wheatley on 05-19-2024 Urea nitrogen [Mass/Vol] 10 mg/dL 7-18 [facility] Sodium levelOrdered By: Chuck Wheatley on 05-19-2024 Sodium [Moles/Vol] 142 mmol/L 136-145 [facility] Total proteinOrdered By: Fan Wheatley on 05-19-2024 Protein [Mass/Vol] 8.3 g/dL High 6.4-8.2 [facility] Triglycerides measurementOrd ered By: John Wheatley on 05-19-2024 Triglyceride [Mass/Vol] 79 mg/dL <199 [facility] Comment on above: The drugs N-Acetylcy steine and Metamizole may falsely depress this assay.Serum Triglycerides Reference Interval Normal <150 mg/dL Borderline high 150 - 199 mg/dL High 200 - 499 mg/dL Very High > or = 500 mg/dL Very low density lipoprotein (VLDL) cholesterol measurementOrdered By: John Wheatley on 05-19-2024 VLDL Cholesterol 16 mg/dL 5-40 [facility] White blood cell (WBC) count Ordered By: John Wheatley on 05-19-2024 WBC (Bld) [#/Vol] 9.6 10*3/uL 4.4-11.[address] [facility] [address] CHEST WO IVCONon 05-16-20 CT CHEST WO IVCON * * *Final Report* * * DATE OF EXAM: May 16 2024 2:08PM [facility] - CT CHEST WO IVCON / PROCEDURE REASON: multiple diagnoses * * * * Physician Interpretation * * * * EXAMINATION: CHEST CT WITHOUT CONTRAST CLINICAL HISTORY: Interstitial disease Technique: Spiral CT acquisition of the chest from the thoracic inlet to the upper abdomen without contrast. MQ: [id number] CT Radiation dose: Integrated Dose-length product (DLP) for this visit = 366 mGy*cm CT Dose Reduction Employed: Automated exposure control(AEC) and iterative recon Comparison: 10/02/2023 RESULT: Limitations: None. Lines, tubes, and devices: None. Lung parenchyma and airways: Again seen are regions of groundglass attenuation and air-trapping within both lungs, suggesting reactive airways disease. There are associated regions of reticulation and traction bronchiectasis seen within both lungs, compatible with interstitial disease. Similar findings were seen on the prior examination. There is no pneumothorax or endobronchial lesion. There are associated regions of honeycombing within the lungs. Consider fibrotic NSIP as a leading differential consideration. Pleural space: There is no pleural effusion. Lower neck, lymph nodes, and mediastinum: There is stable heterogeneity of thyroid gland, with stable appearing nodules seen within each lobe of thyroid gland, when compared to the prior examination. Again seen is mediastinal lymphadenopathy. For example, a precarinal lymph node measures approximately 1.4 cm in short axis dimension (series 7, image #27). There is also bilateral hilar lymphadenopathy. No jameson axillary lymphadenopathy is identified Heart, pericardium, and thoracic vessels: Atherosclerotic calcifications are present within the thoracic aorta and coronary arteries. There is cardiac enlargement. There is no significant pericardial effusion. There is a tiny hiatal hernia. Bones and soft tissues: There is scoliosis, osteopenia, and multilevel degenerative change seen within the thoracic spine. There is bilateral shoulder DJD, right greater than left. There is a stable wedge compression deformity seen involving the T12 vertebral body, when compared to the prior examination. Upper abdomen: Mild, nonspecific bilateral perinephric fat stranding. There is nonspecific thickening of the adrenal glands, bilaterally. Associated left adrenal adenomas. The liver has a somewhat nodular contour. There is colonic diverticulosis. IMPRESSION: 1. Again seen are regions of groundglass attenuation and air-trapping within both lungs, suggesting reactive airways disease. There are associated regions of reticulation and traction bronchiectasis seen within both lungs, compatible with interstitial disease. Similar findings were seen on the prior examination. There are also regions of honeycombing within the lungs. Consider fibrotic NSIP as a leading differential consideration. 2. Mediastinal and bilateral hilar lymphadenopathy. 3. Stable heterogeneity of thyroid gland, with stable appearing nodules seen within each lobe of thyroid gland, when compared to the prior examination. 4. Stable wedge compression deformity involving the T12 vertebral body, when compared to the prior examination. Welt Wheeler: LITTLE Transcribe Date/Time: May 27 2024 7:53A Dictated by : SARWAT RODRIGUES MD This examination was interpreted and the report reviewed and electronically signed by: SARWAT RODRIGUES MD on May 27 2024 8:00AM EST [id number] Normal [facility] ECHOon 05-16-2024 CONCLUSIONS: - Technically difficult exam due to suboptimal positioning. - Exam indication: Re-evaluation of known pulmonary hypertension (to guide therapy) - The left ventricle is normal in size. There is no left ventricular hypertrophy. Left ventricular systolic function is normal. EF = 66 5% (2D biplane) Normal left ventricular diastolic function. - The right ventricle is mildly dilated. Right ventricular systolic function is normal. - There is trace (trace - 1+) tricuspid valve regurgitation. - Estimated right ventricular systolic pressure is likely underestimated due to a weak or incomplete tricuspid regurgitation signal and is, at least, 52 mmHg consistent with moderate pulmonary hypertension. Estimated right atrial pressure is 3 mmHg based on IVC assessment. - Exam was compared with the prior echocardiographic exam performed on 10/03/2023. RVSP was not reported on previous study. There is no other significant change. * * * Final * * * [facility] Ech[facility] Report: Transthoracic Echo [facility] Date of service: 05/16/2024 2:43:42 PM [facility] Ordering physician: JASON MACIAS Indication: Re-evaluation of known pulmonary hypertension (to guide therapy) Technologist: Adelina Leiva [facility] Interpreting physician: Patsy Mckeon MD PATIENT: Name: MRS. MAKENNA ANDRE : 1955 Age: 68 years Gender: F Primary rhythm: sinus. Height: 156.20 cm BSA: 1.77 m Weight: 71.94 kg BMI: 29.5 kg/m Heart rate 100 bpm Blood pressure 147/57 mmHg Technically difficult exam due to suboptimal positioning. Color Doppler was utilized to interrogate the cardiac valves assessed and spectral Doppler was utilized to determine the flow velocities and pressure gradients reported in this exam. MEASUREMENTS: Value Indexed Normal Max aortic dimension 2.8 cm Ao < 3.8 Left atrial volume 36 ml (biplane A-L) 20 ml/m Sam <= 34 LV ID (diastole) 4.6 cm (2D) 2.60 cm/m LV ID (systole) 2.2 cm (2D) 1.27 cm/m IVS, leaflet tips 0.8 cm (2D) Posterior wall thickness 0.8 cm (2D) Left ventricular mass 115 g (2D) 65 g/m LV stroke volume 42 ml (2D biplane) LV end diastolic volume 64 ml (2D biplane) 36.3 ml/m 29<=EDVi<62 LV end systolic volume 22 ml (2D biplane) 12.5 ml/m Ejection Fraction 66 % (2D biplane) EF > 54 FINDINGS: LEFT VENTRICLE The left ventricle is normal in size. There is no left ventricular hypertrophy. Left ventricular systolic function is normal globally. Normal left ventricular diastolic function. Mitral annular lateral E/e': 10.9. Mitral annular septal E/e': 11.2. Wall Motion: All scored segments are normal. RIGHT VENTRICLE The right ventricle is mildly dilated. Right ventricular systolic function is normal. RV systolic tissue Doppler velocity is 8.4 cm/s. Tricuspid annular displacement is 1.9 cm. Estimated right ventricular systolic pressure is likely underestimated due to a weak or incomplete tricuspid regurgitation signal and is, at least, 52 mmHg consistent with moderate pulmonary hypertension. Estimated right atrial pressure is 3 mmHg based on IVC assessment. LEFT ATRIUM The left atrial cavity is normal in size. RIGHT ATRIUM The right atrial cavity is normal in size. Inferior Vena Cava: The inferior vena cava appears normal measuring 1.5 cm. The vessel decreases greater than 50 percent with inspiration. MITRAL VALVE The mitral valve leaflets are structurally normal. There is trace mitral valve regurgitation. The pressure half time is 49 msec. The peak mitral E/A ratio is 0.73. The average mitral E/e' ratio is 11.0. The mitral flow deceleration time is 169 msec. TRICUSPID VALVE The tricuspid valve leaflets are structurally normal. There is trace (trace - 1+) tricuspid valve regurgitation. AORTIC VALVE The aortic valve cusps are structurally normal. There is trace aortic valve regurgitation. Tricuspid aortic valve. PULMONIC VALVE The pulmonic valve was not seen or not interrogated. There is trace pulmonic valve regurgitation. There is no thickening. AORTA The visualized aorta is normal in size. Measurements - Mid ascending aorta 2.8 cm. PULMONARY ARTERIES The pulmonary arteries are unseen or not interrogated. INTERATRIAL SEPTUM There is no evidence of intracardiac shunting as detected by Doppler. INTERVENTRICULAR SEPTUM There is systolic and diastolic flattening of the interventricular septum consistent with RV pressure and volume overload. There is no flow through the interventricular septum as detected by Doppler. PERICARDIUM There is no pericardial effusion. [facility] Echocardiography Echocardiography Report: Transthoracic Echo [facility] Date of service: 05/16/2024 2:43:42 PM [facility] Ordering physician: JASON MACIAS Indication: Re-evaluation of known pulmonary hypertension (to guide therapy) Technologist: Adelina Leiva [facility] Interpreting physician: Patsy Mckeon MD PATIENT: Name: MRS. MAKENNA ANDRE : 1955 Age: 68 years Gender: F Primary rhythm: sinus. Height: 156.20 cm BSA: 1.77 m Weight: 71.94 kg BMI: 29.5 kg/m Heart rate 100 bpm Blood pressure 147/57 mmHg Technically difficult exam due to suboptimal positioning. Color Doppler was utilized to interrogate the cardiac valves assessed and spectral Doppler was utilized to determine the flow velocities and pressure gradients reported in this exam. MEASUREMENTS: Value Indexed Normal Max aortic dimension 2.8 cm Ao < 3.8 Left atrial volume 36 ml (biplane A-L) 20 ml/m Sam <= 34 LV ID (diastole) 4.6 cm (2D) 2.60 cm/m LV ID (systole) 2.2 cm (2D) 1.27 cm/m IVS, leaflet tips 0.8 cm (2D) Posterior wall thickness 0.8 cm (2D) Left ventricular mass 115 g (2D) 65 g/m LV stroke volume 42 ml (2D biplane) LV end diastolic volume 64 ml (2D biplane) 36.3 ml/m 29<=EDVi<62 LV end systolic volume 22 ml (2D biplane) 12.5 ml/m Ejection Fraction 66 % (2D biplane) EF > 54 FINDINGS: LEFT VENTRICLE The left ventricle is normal in size. There is no left ventricular hypertrophy. Left ventricular systolic function is normal globally. Normal left ventricular diastolic function. Mitral annular lateral E/e': 10.9. Mitral annular septal E/e': 11.2. Wall Motion: All scored segments are normal. RIGHT VENTRICLE The right ventricle is mildly dilated. Right ventricular systolic function is normal. RV systolic tissue Doppler velocity is 8.4 cm/s. Tricuspid annular displacement is 1.9 cm. Estimated right ventricular systolic pressure is likely underestimated due to a weak or incomplete tricuspid regurgitation signal and is, at least, 52 mmHg consistent with moderate pulmonary hypertension. Estimated right atrial pressure is 3 mmHg based on IVC assessment. LEFT ATRIUM The left atrial cavity is normal in size. RIGHT ATRIUM The right atrial cavity is normal in size. Inferior Vena Cava: The inferior vena cava appears normal measuring 1.5 cm. The vessel decreases greater than 50 percent with inspiration. MITRAL VALVE The mitral valve leaflets are structurally normal. There is trace mitral valve regurgitation. The pressure half time is 49 msec. The peak mitral E/A ratio is 0.73. The average mitral E/e' ratio is 11.0. The mitral flow deceleration time is 169 msec. TRICUSPID VALVE The tricuspid valve leaflets are structurally normal. There is trace (trace - 1+) tricuspid valve regurgitation. AORTIC VALVE The aortic valve cusps are structurally normal. There is trace aortic valve regurgitation. Tricuspid aortic valve. PULMONIC VALVE The pulmonic valve was not seen or not interrogated. There is trace pulmonic valve regurgitation. There is no thickening. AORTA The visualized aorta is normal in size. Measurements - Mid ascending aorta 2.8 cm. PULMONARY ARTERIES The pulmonary arteries are unseen or not interrogated. INTERATRIAL SEPTUM There is no evidence of intracardiac shunting as detected by Doppler. INTERVENTRICULAR SEPTUM There is systolic and diastolic flattening of the interventricular septum consistent with RV pressure and volume overload. There is no flow through the interventricular septum as detected by Doppler. PERICARDIUM There is no pericardial effusion. CONCLUSIONS: - Technically difficult exam due to suboptimal positioning. - Exam indication: Re-evaluation of known pulmonary hypertension (to guide therapy) - The left ventricle is normal in size. There is no left ventricular hypertrophy. Left ventricular systolic function is normal. EF = 66 5% (2D biplane) Normal left ventricular diastolic function. - The right ventricle is mildly dilated. Right ventricular systolic function is normal. - There is trace (trace - 1+) tricuspid valve regurgitation. - Estimated right ventricular systolic pressure is likely underestimated due to a weak or incomplete tricuspid regurgitation signal and is, at least, 52 mmHg consistent with moderate pulmonary hypertension. Estimated right atrial pressure is 3 mmHg based on IVC assessment. - Exam was compared with the prior [facility] echocardiographic exam performed on 10/03/2023. RVSP was not reported on previous study. There is no other significant change. * * * Final * * * [facility] Image : [id number] amicsSISUID Normal [facility] Cardiology Visit Reporton Cardiology Visit Report Normal [facility] CNOVon 04-29-2024 CNOV Office Visit ([facility]) MAKENNA ANDRE ([id number]) 1955 F Date Time Provider Department 04/29/24 1:00 PM BASSEM CASE [facility] During your visit today, we recorded the following information about you: Pulse Blood pressure Weight 91/minute 148/68 71.7 kg KarieorionBassem APRN.JES 05/06/2024 10:53 AM Signed Chronic Care Clinic/CHF/Pulmonary Hypertension Clinic Chief Complaint Exertional dyspnea with hypoxia high risk medication management (Tyvaso) Ms. Andre is a 67 year old female patient who is known to the heart failure clinic and presents as follow-up for her recently diagnosed PAH-ILD. Patient was hospitalized for acute hypoxic respiratory failure -10/06 of this year in which a workup revealed the presence of significant interstitial lung disease/fibrosis on the CT scan as well as presence of pulmonary hypertension cardiac echo. Eventually the patient underwent a right heart catheterization which was impressive for precapillary PAH She was then subsequently started on Tyvaso DPI by Dr. Godwin. Patient states that she has done very well since starting Tyvaso DPI. She has noted significant improvement in her exertional dyspnea and fatigue. She is able to complete activities of routine daily living much easier and he feels overall much better. Patient's current dosage of Tyvaso DPI 64mcg 4 times daily She is doing very well with this. Coughing post treatment does not seem to be much of a problem. She uses an organic homey spray prn to soothe her throat. Patient has been maintained continuously on 5 L of oxygen per nasal cannula with an optimizer pendant. and she has shown marked improvement in energy and symptoms overall She denies any pedal edema, chest pain, shortness of breath, palpitations, fever, chills Her weight is stable at 153lbs Patient voices no complaints today She also denies diarrhea, palpitations, flushing orlightheadedness. Patient's current prescribed diuretic regimen is Lasix 40 mg p.o. daily. Patient actually is euvolemic today She tells me she does not need to take her Lasix on a daily basis and does not do so. She only takes Lasix when her her ankles are slightly swollen or she notices a slight increase in her weight. This is about once a week. I encouraged patient to at least try to take the Lasix every other day. Patient does weigh herself on a daily basis Other than the Tyvaso DPI the patient is on no additional PAH medications PAST MEDICAL HISTORY Diagnosis Date Allergic rhinitis, cause unspecified Essential hypertension, benign Family history of ischemic heart disease father age 50, brother age 42 Obesity, unspecified PAST SURGICAL HISTORY Procedure Laterality Date COLONOSCOPY FLX DX W/COLLJ SPEC WHEN PFRMD 11-01-12 PAST SURGICAL HISTORY OF 1992 REMOVAL OF BENIGN CYST-RIGHT SIDE OF NECK TONSILLECTOMY AND ADENOIDECTOMY AGE 12/> 1992 FAMILY HISTORY Problem Relation Age of Onset Heart Father [place] - first age 40's, CVA age 50 Stroke Father CVA - first age 42, CVA age 50 Hypertension Mother Diabetes Mother Heart Brother age 41; also heavy etoh use Heart Brother stented age 42 Hypertension Brother Breast Cancer Maternal Aunt x2 Heart Paternal Uncle x2 Allergies Mother Cancer Mother pancreatic cancer Social History Tobacco Use Smoking status: Never Substance Use Topics Alcohol use: No Drug use: No ALLERGIES Allergen Reactions Darvocet-N 100 [Pro* Unknown numbness Penicillins Hives Medications: Current Outpatient Medications Medication Sig Dispense Refill TYVASO DPI 64 mcg dry powder inhaler Inhale 64 mcg as instructed four times daily. RED BEET ROOT-SOUR CANNON EXT ORAL Take by mouth. albuterol HFA (PROVENTIL HFA, VENTOLIN HFA) 90 mcg/actuation inhaler Inhale 2 Puffs as instructed every 6 hours as needed for wheezing/shortness of breath. 1 Each 5 fluticasone-salmetero l (ADVAIR DISKUS) 500-50 mcg/dose dsdv Inhale 1 Puff as instructed two times a day. Rinse and gargle mouth with water after each use. 60 Each 5 OXYGEN, HOME THERAPY, Inhale 6-10 L/min as instructed continuous. dilTIAZem LA (CARDIZEM LA) 240 mg 24 hr tablet Take 240 mg by mouth once daily. acetaminophen (TYLENOL ARTHRITIS PAIN) 650 mg CR tablet Take 1 tablet by mouth every 8 hours as needed for pain. cyanocobalamin (VITAMIN B-12) 1,000 mcg tab Take 1,000 mcg by mouth once daily. Chromium Picolinate 200 mcg tab Take 1 tablet by mouth once daily. vitamin E, dl,tocopheryl acet, (VITAMIN E, DL, ACETATE,) 180 mg (400 unit) capsule Take 1 capsule by mouth once daily. Glucosamine-Chondroit in (OSTEO BI-FLEX) 250-200 mg tab Take 2 tablets by mouth once daily. potassium chloride ER (KLOR-CON) 20 mEq tablet Take 1 tablet by mouth once daily. calcium carb-D3-mag ox-zinc ox (NISH MAG ZINC PLUS D3) 333 mg-133 unit -133 mg-5 mg t (more content not included)... Normal [facility] Albumin to globulin ratioOrd ered By: Hoda Del Rosario on 04-22-2024 Albumin/Globulin [Mass ratio] 0.8 {ratio} Low 0.9-2.4 [facility] Bilirubin, totalOrdered By: Hoda Del Rosario on 04-22-2024 Bilirubin [Mass/Vol] 0.60 mg/dL 0.20-1.00 [facility] Comment on above: For patients on eltr ombopag therapy, use of Dimension [place] TBIL is not recommended. Blood urea nitrogen (BUN)/cr eatinine ratioOrdered By: Hoda Del Rosario on 04-22-2024 Urea nitrogen/Creatinine [Mass ratio] 17.2 mg/mg 10- [facility] CNPNon 04-22-2024 [facility] Telephone ([facility]) MAKENNA ANDRE ([id number]) 1955 F Date Time Provider Department 04/22/24 HERI TABOR [facility] During your visit today, we recorded the following information about you: Zonia Tucker 04/22/2024 10:35 AM Signed PAP Supply order and ARTUR notes faxed to [facility]. Zonia Tucker Allergies As of Date: 04/22/2024 Noted Allergy Reaction DARVOCET-N 100 (PROPOXYPHENE N-AC*08/27/2007 16 - Unknown Comments: numbness PENICILLINS 10/07/2012 4 - Hives Date Reviewed: 04/21/2024 Reviewed by: Heri Tabor MD - Fully Assessed Reason for Visit: FYI-No Action Needed [265] Cmt: PAP supply order Prescriptions as of 04/22/2024 - TYVASO DPI 64 mcg dry powder inhaler Inhale 64 mcg as instructed four times daily. - RED BEET ROOT-SOUR CANNON EXT ORAL Take by mouth. - albuterol HFA (PROVENTIL HFA, VENTOLIN HFA) 90 mcg/actuation inhaler Inhale 2 Puffs as instructed every 6 hours as needed for wheezing/shortness of breath. - fluticasone-salmetero l (ADVAIR DISKUS) 500-50 mcg/dose dsdv Inhale 1 Puff as instructed two times a day. Rinse and gargle mouth with water after each use. - OXYGEN, HOME THERAPY, Inhale 6-10 L/min as instructed continuous. - dilTIAZem LA (CARDIZEM LA) 240 mg 24 hr tablet Take 240 mg by mouth once daily. - acetaminophen (TYLENOL ARTHRITIS PAIN) 650 mg CR tablet Take 1 tablet by mouth every 8 hours as needed for pain. - cyanocobalamin (VITAMIN B-12) 1,000 mcg tab Take 1,000 mcg by mouth once daily. - Chromium Picolinate 200 mcg tab Take 1 tablet by mouth once daily. - vitamin E, dl,tocopheryl acet, (VITAMIN E, DL, ACETATE,) 180 mg (400 unit) capsule Take 1 capsule by mouth once daily. - Glucosamine-Chondroit in (OSTEO BI-FLEX) 250-200 mg tab Take 2 tablets by mouth once daily. - potassium chloride ER (KLOR-CON) 20 mEq tablet Take 1 tablet by mouth once daily. - calcium carb-D3-mag ox-zinc ox (NISH MAG ZINC PLUS D3) 333 mg-133 unit -133 mg-5 mg tab Take 1 tablet by mouth once daily. - levothyroxine (SYNTHROID) 50 mcg tablet Take 1 tablet by mouth daily before breakfast. - pravastatin (PRAVACHOL) 20 mg tablet Take 1 tablet by mouth once daily. - turmeric root extract 500 mg cap Take 1 capsule by mouth once daily. - vit A and D3 in cod liver oil 1,250-135 unit cap Take 1 capsule by mouth once daily. - furosemide (LASIX) 40 mg tablet Take 1 tablet by mouth once daily. - Echinacea 500 mg cap Take 1 capsule by mouth two times a day. - lisinopril 10 mg tablet Take 1 tablet by mouth once daily. - Cholecalciferol, Vitamin D3, 2,000 unit cap Take 1 tablet by mouth once daily. - vitamin A-ascorbic acid-vitamin E-minerals (OCUVITE) Tab Take 1 tablet by mouth once daily. - NNN-Wxandxizy-Qttcmul nophen (ALLERGY SINUS PE) 2-5-325 mg ORAL Tab Take by mouth as needed. - GARLIC 1,000 MG CAP Take one tablet daily. - aspirin(ADULT LOW DOSE ASPIRIN 81 MG TAB, DELAYED RELEASE) Take one(1) tablet daily. - multivitamins(DAILY MULTIVITAMIN TAB) Take one(1) tablet daily. 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.419] 08/27/2007 Class: Chronic FAMILY HX ISCHEM HEART DIS [Z82.49] OBESITY NOS [E66.9] IMPAIRED FASTING GLUCOSE [R73.01] 08/27/2007 Screening for colon cancer [Z12.11] 10/07/2012 At risk for osteoporosis [Z91.89] 08/25/2013 Acute respiratory failure with hypoxia (HCC) [J*10/02/2023 Encounter Status:Closed by ZONIA TUCKER on 04/22/24 Normal [facility] Carbon dioxide measurementOr dered By: Hoda Del Rosario on 04-22-2024 CO2 [Moles/Vol] 30.0 mmol/L 21.0-32.0 [facility] Chloride measurementOrdered By: Hoda Del Rosario on 04-22-2024 Chloride [Moles/Vol] 106 mmol/L 98-107 [facility] Comprehensive Metabolic Prof ilon 04-22-2024 Albumin [Mass/Vol] 3.6 g/dL Normal 3.2-5.0 [facility] Comment on above: Performed By: #### L 506.0400, L500.4050, L501.0464 ####[facility] [address] [place], [place], [address] Albumin/Globulin [Mass ratio] 0.8 {ratio} Low 0.9-2.4 [facility] Comment on above: Performed By: #### L 506.0400, L500.4050, L501.9520 ####[facility] [address] [place], [address] ALK P 102 U/L Normal 45-117 [facility] Comment on above: Performed By: #### L 506.0400, [id number], L501.9520 ####[facility] [address] [place], [address] ALT [Catalytic activity/Vol] 18 U/L Normal 13-56 [facility] Comment on above: Performed By: #### L 506.0400, [id number], L501.9520 ####[facility] [address] [place], [address] AST [Catalytic activity/Vol] 11 U/L Low 15-37 [facility] Comment on above: Performed By: #### L 506.0400, [id number], L501.9520 ####[facility] [address] [place], [address] Bilirubin [Mass/Vol] 0.60 mg/dL Normal 0.20-1.00 [facility] Comment on above: Result Comment: For patients on eltrombopag therapy, use of Dimension [place] TBIL is not recommended. Performed By: #### L 506.0400, L500.4050, L501.9520 ####[facility] [address] [place], [address] BUN/CRE 17.2 RATIO Normal 10-20 [facility] Comment on above: Performed By: #### L 506.0400, [id number], L501.9520 ####[facility] [address] [place], [address] CA,Total 10.0 mg/dL Normal 8.5-10.1 [facility] Comment on above: Performed By: #### L 506.0400, [id number], [id number] ####[facility] [address] [place], [address] Chloride [Moles/Vol] 106 mmol/L Normal 98-107 [facility] Comment on above: Performed By: #### L 506.0400, [id number], L501.9520 ####[facility] [address] [place], [address] CO2 [Moles/Vol] 30.0 mmol/L Normal 21.0-32.0 [facility] Comment on above: Performed By: #### L 506.0400, L500.4050, L501.9520 ####[facility] [address] [place], [address] Creatinine [Mass/Vol] 0.64 mg/dL Normal 0.55-1.02 [facility] Comment on above: Result Comment: The validity of the calculated GFR GFRAA in patients over70 years has not been determined. Clinical correlation isessential. Performed By: #### L 506.0400, L500.4050, L501.9520 ####[facility] [address] [place], [address] EST GFR - AA 119 mL/min Normal >60 [facility] Comment on above: Result Comment: Afri can [place] GFR Calc Performed By: #### L 506.0400, L500.4050, L501.9520 ####[facility] [address] [place], [address] GAP 5 Normal 5-15 [facility] Comment on above: Performed By: #### L 506.0400, [id number], L501.9520 ####[facility] [address] [place], [address] GFR/1.73 sq M.predicted among non-blacks MDRD (S/P/Bld) [Vol rate/Area] 98 mL/min/{1.73_m2} Normal >60 [facility] Comment on above: Result Comment: Non- GFR Calc Performed By: #### L 506.0400, L500.4050, L501.9520 ####[facility] [address] [place], [address] Globulin (S) [Mass/Vol] 4.8 g/dL High 2.2-4.2 [facility] Comment on above: Performed By: #### L 506.0400, [id number], L501.9520 ####[facility] [address] [place], [address] Glucose [Mass/Vol] 98 mg/dL Normal 74-106 [facility] Comment on above: Performed By: #### L 506.0400, [id number], L501.9520 ####[facility] [address] [place], [address] Potassium [Moles/Vol] 3.8 mmol/L Normal 3.5-5.1 [facility] Comment on above: Performed By: #### L 506.0400, L500.4050, L501.9520 ####[facility] [address] [place], [address] Sodium [Moles/Vol] 141 mmol/L Normal 136-145 [facility] Comment on above: Performed By: #### L 506.0400, [id number], L501.9520 ####[facility] [address] [place], [address] T PROT 8.4 g/dL High 6.4-8.2 [facility] Comment on above: Performed By: #### L 506.0400, L500.4050, L501.9520 ####[facility] [address] [place], [address] Urea nitrogen [Mass/Vol] 11 mg/dL Normal 7-18 [facility] Comment on above: Performed By: #### L 506.0400, L500.4050, L501.9520 ####[facility] [address] [place], [address] Direct serum free thyroxine (FT4) measurementOrdered By: Hoda Del Rosario on 04-22-2024 Free T4 [Mass/Vol] 1.17 ng/dL 0.76-1.46 [facility] Estimated glomerular filtrat ion rate (GFR) AmericanOrdered By: Hoda Del Rosario on 04-22-2024 Estimated GFR (MDRD) Amer 119 mL/min >60 [facility] Comment on above: GFR Calc Glomerular filtration rate ( GFR) estimationOrdered By: Hoda Del Rosario on 04-22-2024 Estimated GFR (MDRD) Non-Af Amer 98 mL/min >60 [facility] Comment on above: Non- GFR Calc Glucose measurementOrdered B y: Hoda Del Rosario on 04-22-2024 Glucose [Mass/Vol] 98 mg/dL 74-106 [facility] Laboratory - Chemistry and C hemistry - challengeOrdered By: Hoda Del Rosario on 04-22-2024 AST [Catalytic activity/Vol] 11 U/L Low 15-37 [facility] Potassium measurementOrdered By: Hoda Del Rosario on 04-22-2024 Potassium [Moles/Vol] 3.8 mmol/L 3.5-5.1 [facility] Serum anion gap measurementO rdered By: Hoda Del Rosario on 04-22-2024 Anion gap [Moles/Vol] 5 mmol/L 5-15 [facility] Serum globulin measurementOr dered By: Hoda Del Rosario on 04-22-2024 Globulin (S) [Mass/Vol] 4.8 g/dL High 2.2-4.2 [facility] Serum or plasma alanine larios otransferase (ALT) measurementOrdered By: Hoda Del Rosario on 04-22-2024 ALT [Catalytic activity/Vol] 18 U/L 13-56 [facility] Serum or plasma albumin juanpablo urement (mass/volume)Ordered By: Hoda Del Rosario on 04-22-2024 Albumin [Mass/Vol] 3.6 g/dL 3.2-5.0 [facility] Serum or plasma alkaline yady sphatase measurementOrdered By: Hoda Del Rosario on 04-22-2024 ALP [Catalytic activity/Vol] 102 U/L 45-117 [facility] Serum or plasma calcium juanpablo urement (mass/volume)Ordered By: Hoda Del Rosario on 04-22-2024 Calcium [Mass/Vol] 10.0 mg/dL 8.5-10.1 [facility] Serum or plasma creatinine m easurement (mass/volume)Ordered By: Hoda Del Rosario on 04-22-2024 Creatinine [Mass/Vol] 0.64 mg/dL 0.55-1.02 [facility] Comment on above: The validity of the calculated GFR & GFRAA in patients over 70 years has not been determined. Clinical correlation is essential. Serum or plasma urea nitroge n measurement (mass/volume)Ordered By: Hoda Del Rosario on 04-22-2024 Urea nitrogen [Mass/Vol] 11 mg/dL 7-18 [facility] Sodium levelOrdered By: Margie Del Rosario on 04-22-2024 Sodium [Moles/Vol] 141 mmol/L 136-145 [facility] T4 Free Directon 04-22-2024 T4 FREE DIRECT 1.17 ng/dL Normal 0.76-1.46 [facility] Comment on above: Performed By: #### L 506.0400, L500.4050, L501.9520 ####[facility] [address] [place], [place], [address] TSH QnOrdered By: Hoda doe on 04-22-2024 Thyroid Stimulating Hormone (TSH) 0.376 uIU/mL 0.358-3.740 [facility] Thyroid Stim Hormone (TSH)on 04-22-2024 TSH 0.376 uIU/mL Normal 0.358-3.740 [facility] Comment on above: Performed By: #### L 506.0400, L500.4050, L501.9520 ####[facility] [address] [place], [address] Total proteinOrdered By: Beni Del Rosario on 04-22-2024 Protein [Mass/Vol] 8.4 g/dL High 6.4-8.2 [facility] CNOVon 04-21-2024 CNOV Office Visit (PULMGR ) MAKENNA ANDRE ([id number]) 1955 F Date Time Provider Department 04/21/24 1:00 PM HERI TABOR PULMGR During your visit today, we recorded the following information about you: Temperature Pulse Respiration Blood pressure Normal [facility] CNPGay 04-15-2024 CNPN Telephone (PULMMN) MAKENNA ANDRE ([id number]) 1955 F Date Time Provider Department 04/15/24 AMOL GODWIN During your visit today, we recorded the following information about you: Amol Godwin MD 04/15/2024 12:57 PM Signed Called patient to review 6MWT. Shows increase supplemental O2 needs to around 6LNC, though would also want ambulatory O2 evaluation. Patient has concentrator that can go to 10LNC. I recommend she increase to 6LNC with exertion, however patient states she hates the increased flow and can't tolerate higher flow rates. Will then recommend getting NC reservoir. Will discuss with office staff Patient on 64 mcg QID of Tyvaso and notices marked improvement specifically improved exertional dyspnea and energy level. Recommend continuation of therapy and follow up with Faustina Case (04/29) and myself 05/2024 Ifeoma Coy 04/17/2024 4:04 PM Signed O2 pendant order faxed to [employer]. Ifeoma Coy Allergies As of Date: 04/15/2024 Noted Allergy Reaction DARVOCET-N 100 (PROPOXYPHENE N-AC*08/27/2007 16 - Unknown Comments: numbness PENICILLINS 10/07/2012 4 - Hives Date Reviewed: 02/25/2024 Reviewed by: Jason Macias APRN.UPSETTER SETTER UP - Fully Assessed Reason for Visit: Patient Update [1234] FYI-No Action Needed [265] Prescriptions as of 04/17/2024 - albuterol HFA (PROVENTIL HFA, VENTOLIN HFA) 90 mcg/actuation inhaler Inhale 2 Puffs as instructed every 6 hours as needed for wheezing/shortness of breath. - fluticasone-salmetero l (ADVAIR DISKUS) 500-50 mcg/dose dsdv Inhale 1 Puff as instructed two times a day. Rinse and gargle mouth with water after each use. - OXYGEN, HOME THERAPY, Inhale 6-10 L/min as instructed continuous. - dilTIAZem LA (CARDIZEM LA) 240 mg 24 hr tablet Take 240 mg by mouth once daily. - acetaminophen (TYLENOL ARTHRITIS PAIN) 650 mg CR tablet Take 1 tablet by mouth every 8 hours as needed for pain. - cyanocobalamin (VITAMIN B-12) 1,000 mcg tab Take 1,000 mcg by mouth once daily. - Chromium Picolinate 200 mcg tab Take 1 tablet by mouth once daily. - vitamin E, dl,tocopheryl acet, (VITAMIN E, DL, ACETATE,) 180 mg (400 unit) capsule Take 1 capsule by mouth once daily. - Glucosamine-Chondroit in (OSTEO BI-FLEX) 250-200 mg tab Take 2 tablets by mouth once daily. - potassium chloride ER (KLOR-CON) 20 mEq tablet Take 1 tablet by mouth once daily. - calcium carb-D3-mag ox-zinc ox (NISH MAG ZINC PLUS D3) 333 mg-133 unit -133 mg-5 mg tab Take 1 tablet by mouth once daily. - levothyroxine (SYNTHROID) 50 mcg tablet Take 1 tablet by mouth daily before breakfast. - pravastatin (PRAVACHOL) 20 mg tablet Take 1 tablet by mouth once daily. - turmeric root extract 500 mg cap Take 1 capsule by mouth once daily. - vit A and D3 in cod liver oil 1,250-135 unit cap Take 1 capsule by mouth once daily. - furosemide (LASIX) 40 mg tablet Take 1 tablet by mouth once daily. - Echinacea 500 mg cap Take 1 capsule by mouth two times a day. - lisinopril 10 mg tablet Take 1 tablet by mouth once daily. - Cholecalciferol, Vitamin D3, 2,000 unit cap Take 1 tablet by mouth once daily. - vitamin A-ascorbic acid-vitamin E-minerals (OCUVITE) Tab Take 1 tablet by mouth once daily. - LGE-Jkszubawo-Wkoqydi nophen (ALLERGY SINUS PE) 2-5-325 mg ORAL Tab Take by mouth as needed. - GARLIC 1,000 MG CAP Take one tablet daily. - aspirin(ADULT LOW DOSE ASPIRIN 81 MG TAB, DELAYED RELEASE) Take one(1) tablet daily. - multivitamins(DAILY MULTIVITAMIN TAB) Take one(1) tablet daily. 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 [Z01.419] 08/27/2007 Class: Chronic FAMILY HX ISCHEM HEART DIS [Z82.49] OBESITY NOS [E66.9] IMPAIRED FASTING GLUCOSE [R73.01] 08/27/2007 Screening for colon cancer [Z12.11] 10/07/2012 At risk for osteoporosis [Z91.89] 08/25/2013 Acute respiratory failure with hypoxia (HCC) [J*10/02/2023 Encounter Status:Closed by AMOL GODWIN on 04/15/24 Normal [facility] NT-proBNP EstuardoGirma 04-02 Natriuretic peptide.B prohormone N-Terminal [Mass/Vol] 89 pg/mL Normal <125 [facility] Comment on above: Order Comment: Speci men Type: BLOOD SPECIMEN Ordering Facility: [facility] Address: [address] [place] [address] Performed By: #### T HTO #### [facility] CLIA [id number] [address] [place] [address] [facility] 02-25-2024 [facility] Office Visit ([facility] ) MAKENNA ANDRE ([id number]) 1955 F Date Time Provider Department 02/25/24 2:30 PM JASON MACIAS [facility] During your visit today, we recorded the following information about you: Temperature Pulse Blood pressure Weight 97.7 degrees 98/minute 162/93 71.9 kg Height 1.562 m Jason Macias APRN.UPSETTER SETTER UP 02/25/2024 4:34 PM Signed Patient: Makenna Andre PCP: Hoda Del Rosario MD CC: review PFTs HPI: Makenna Andre is a 68 year old female former smoker with PMH significant for pulmonary hypertension, ILD, HTN, chronic respiratory failure, allergic rhinitis. Last Pulmonary Clinic visit was with Dr. Godwin on 10/24/2023. The plan from this office visit was: -Obtain PFTs - Will discuss with ILD multidisciplinary team - With regards to PAH, clinical improvement with Tyvaso. Recommend ongoing up titration to 64 mcg 4 times a day as tolerated. Will increase dose every 4 weeks as tolerated - Obtain 6-minute walk test, ambulatory O2 eval - Continue supplemental O2 at 4 to 6 L - Recommend continuation of Advair 500 twice daily as ordered Today, the patient feels okay since last office visit. Admits to occasional cough. Denies SOB, wheezing, ONEAL, sore throat, LE edema, chest pain/tightness, sinus congestion, rhinorrhea, or PND Wears BiPAP with all sleep with 4L bled in Wears 3-4LNC with rest DME: [employer] Current therapy: Wixela 500 Tyvaso 64 mcgs QID Had significant environmental exposure. 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 There was a lot of dust exposure Here with . ROS: See HPI PAST MEDICAL HISTORY Diagnosis Date Allergic rhinitis, cause unspecified Essential hypertension, benign Family history of ischemic heart disease father age 50, brother age 42 Obesity, unspecified Allergies: Darvocet-N 100 [Pro* Unknown Comment:numbness Penicillins Hives OXYGEN, HOME THERAPY, Inhale 6-10 L/min as instructed continuous. dilTIAZem LA (CARDIZEM LA) 240 mg 24 hr tablet Take 240 mg by mouth once daily. acetaminophen (TYLENOL ARTHRITIS PAIN) 650 mg CR tablet Take 1 tablet by mouth every 8 hours as needed for pain. cyanocobalamin (VITAMIN B-12) 1,000 mcg tab Take 1,000 mcg by mouth once daily. Chromium Picolinate 200 mcg tab Take 1 tablet by mouth once daily. vitamin E, dl,tocopheryl acet, (VITAMIN E, DL, ACETATE,) 180 mg (400 unit) capsule Take 1 capsule by mouth once daily. Glucosamine-Chondroit in (OSTEO BI-FLEX) 250-200 mg tab Take 2 tablets by mouth once daily. potassium chloride ER (KLOR-CON) 20 mEq tablet Take 1 tablet by mouth once daily. calcium carb-D3-mag ox-zinc ox (NISH MAG ZINC PLUS D3) 333 mg-133 unit -133 mg-5 mg tab Take 1 tablet by mouth once daily. levothyroxine (SYNTHROID) 50 mcg tablet Take 1 tablet by mouth daily before breakfast. pravastatin (PRAVACHOL) 20 mg tablet Take 1 tablet by mouth once daily. turmeric root extract 500 mg cap Take 1 capsule by mouth once daily. vit A and D3 in cod liver oil 1,250-135 unit cap Take 1 capsule by mouth once daily. furosemide (LASIX) 40 mg tablet Take 1 tablet by mouth once daily. fluticasone-salmetero l (ADVAIR) 500-50 mcg/dose dsdv Inhale 1 Puff as instructed two times a day. Echinacea 500 mg cap Take 1 capsule by mouth two times a day. lisinopril 10 mg tablet Take 1 tablet by mouth once daily. Cholecalciferol, Vitamin D3, 2,000 unit cap Take 1 tablet by mouth once daily. vitamin A-ascorbic acid-vitamin E-minerals (OCUVITE) Tab Take 1 tablet by mouth once daily. YBX-Jvszprcjb-Hikyocv nophen (ALLERGY SINUS PE) 2-5-325 mg ORAL Tab Take by mouth as needed. GARLIC 1,000 MG CAP Take one tablet daily. aspirin(ADULT LOW DOSE ASPIRIN 81 MG TAB, DELAYED RELEASE) Take one(1) tablet daily. multivitamins(DAILY MULTIVITAMIN TAB) Take one(1) tablet daily. Social History Tobacco Use Smoking status: Never Substance Use Topics Alcohol use: No Drug use: No Family History Problem Relation Age of Onset Heart Father [place] - first age 40's, CVA age 50 Stroke Father CVA - first age 42, CVA age 50 Hypertension Mother Diabetes Mother Heart Brother age 41; also heavy etoh use Heart Brother stented age 42 Hypertension Brother Breast Cancer Maternal Aunt x2 Heart Paternal Uncle x2 Allergies Mother Cancer Mother pancreatic cancer PAST SURGICAL HISTORY Procedure Laterality Date COLONOSCOPY FLX DX W/COLLJ SPEC WHEN PFRMD 11-01-12 PAST SURGICAL HISTORY OF 1992 REMOVAL OF BENIGN CYST-RIGHT SIDE OF NECK TONSILLECTOMY AND ADENOIDECTOMY AGE 12/1992 I reviewed the past medical history, family history, social history and surgical history with changes noted above and updated in EMR. IMMUNIZATIONS Immunization History Administered Date(s) Administered tetanus diphtheria pertussis (Tdap) vaccine, age 7+ yr (ADACEL, BOOSTRIX) (more content not included)... Normal [facility] 02-08-2024 [facility] Telephone ([facility]) MAKENNA ANDRE ([id number]) 1955 F Date Time Provider Department 02/08/24 AMOL GODWIN [facility] During your visit today, we recorded the following information about you: Claudia Galeano, RN 02/08/2024 4:22 PM Signed Patient is using 4L on home concentrator. Patient was Dc'd from in September and was on 6L and found that to be too much. Patient is currently using 4L at home on concentrator. Patient has POC, but it only goes up to 3L. She needs a new Rx for one that goes higher (at least 4-5). Patient stated spoke with [employer] who produces inogen POC. Patient stated per [facility],in order to obtain a new POC that goes up to 5L, she requires a new Rx stating so. Upon chart review - telephone encounter 01/11/2024 with results: notify patient she requies 5L NC with exertion and 3L at rest. WILVER Landon Anthony R, MD 02/11/2024 9:40 AM Signed Addended by: AMOL GODWIN on: 02/11/2024 09:40 AM Modules accepted: Marlena Fritz 02/11/2024 10:37 AM Signed Order faxed to [facility]. Marlena Portillo Allergies As of Date: 02/08/2024 Noted Allergy Reaction DARVOCET-N 100 (PROPOXYPHENE N-AC*08/27/2007 16 - Unknown Comments: numbness PENICILLINS 10/07/2012 4 - Hives Date Reviewed: 11/16/2023 Reviewed by: Bassem Case APRN.FUR COAT SEWER - Fully Assessed Primary Visit Diagnosis:Chronic hypoxemic respiratory failure (HCC) [J96.11] Order(s):OXYGEN FOR HOME USE [[id number]] Order #: [id number] Prescriptions as of 02/11/2024 - OXYGEN, HOME THERAPY, Inhale 6-10 L/min as instructed continuous. - dilTIAZem LA (CARDIZEM LA) 240 mg 24 hr tablet Take 240 mg by mouth once daily. - acetaminophen (TYLENOL ARTHRITIS PAIN) 650 mg CR tablet Take 1 tablet by mouth every 8 hours as needed for pain. - cyanocobalamin (VITAMIN B-12) 1,000 mcg tab Take 1,000 mcg by mouth once daily. - Chromium Picolinate 200 mcg tab Take 1 tablet by mouth once daily. - vitamin E, dl,tocopheryl acet, (VITAMIN E, DL, ACETATE,) 180 mg (400 unit) capsule Take 1 capsule by mouth once daily. - Glucosamine-Chondroit in (OSTEO BI-FLEX) 250-200 mg tab Take 2 tablets by mouth once daily. - potassium chloride ER (KLOR-CON) 20 mEq tablet Take 1 tablet by mouth once daily. - calcium carb-D3-mag ox-zinc ox (NISH MAG ZINC PLUS D3) 333 mg-133 unit -133 mg-5 mg tab Take 1 tablet by mouth once daily. - levothyroxine (SYNTHROID) 50 mcg tablet Take 1 tablet by mouth daily before breakfast. - pravastatin (PRAVACHOL) 20 mg tablet Take 1 tablet by mouth once daily. - turmeric root extract 500 mg cap Take 1 capsule by mouth once daily. - vit A and D3 in cod liver oil 1,250-135 unit cap Take 1 capsule by mouth once daily. - furosemide (LASIX) 40 mg tablet Take 1 tablet by mouth once daily. - fluticasone-salmetero l (ADVAIR) 500-50 mcg/dose dsdv Inhale 1 Puff as instructed two times a day. - Echinacea 500 mg cap Take 1 capsule by mouth two times a day. - lisinopril 10 mg tablet Take 1 tablet by mouth once daily. - Cholecalciferol, Vitamin D3, 2,000 unit cap Take 1 tablet by mouth once daily. - vitamin A-ascorbic acid-vitamin E-minerals (OCUVITE) Tab Take 1 tablet by mouth once daily. - XUS-Chqbddukf-Yaswdtu nophen (ALLERGY SINUS PE) 2-5-325 mg ORAL Tab Take by mouth as needed. - GARLIC 1,000 MG CAP Take one tablet daily. - aspirin(ADULT LOW DOSE ASPIRIN 81 MG TAB, DELAYED RELEASE) Take one(1) tablet daily. - multivitamins(DAILY MULTIVITAMIN TAB) Take one(1) tablet daily. 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 - here [Z01.419] 08/27/2007 Class: Chronic FAMILY HX ISCHEM HEART DIS [Z82.49] OBESITY NOS [E66.9] IMPAIRED FASTING GLUCOSE [R73.01] 08/27/2007 Screening for colon cancer [Z12.11] 10/07/2012 At risk for osteoporosis [Z91.89] 08/25/2013 Acute respiratory failure with hypoxia (HCC) [J*10/02/2023 Encounter Status:Closed by CLAUDIA GALEANO on 02/08/24 [facility] 01-11-2024 [facility] Telephone ([facility]) MAKENNA ANDRE ([id number]) 1955 F Date Time Provider Department 01/11/24 AMOL GODWIN [facility] During your visit today, we recorded the following information about you: Cole Meléndez RN 01/11/2024 8:24 AM Signed Left VM to return call. Message to relay: Please notify patient that she requires 5LNC with exertion and 3LNC at rest AC Cole Meléndez RN 01/14/2024 8:42 AM Signed Second attempt at calling pt. No answer. VM left. Cole Meléndez RN 01/14/2024 12:02 PM Signed Pt left VM returning call. Attempted to call pt. No answer. Left VM. Claudia Galeano RN 01/14/2024 12:04 PM Signed Attempted to contact patient. LVM message with call back number provided or to look at . WILVER Landon Amanda, RN 01/14/2024 3:16 PM Signed Relayed information from Dr. Godwin on her voicemail. Instructed to call back if she has any questions. Claudia Galeano RN Allergies As of Date: 01/11/2024 Noted Allergy Reaction DARVOCET-N 100 (PROPOXYPHENE N-AC*08/27/2007 16 - Unknown Comments: numbness PENICILLINS 10/07/2012 4 - Hives Date Reviewed: 11/16/2023 Reviewed by: Bassem Case APRN.FUR COAT SEWER - Fully Assessed Reason for Visit: Results [95] Prescriptions as of 01/14/2024 - OXYGEN, HOME THERAPY, Inhale 6-10 L/min as instructed continuous. - dilTIAZem LA (CARDIZEM LA) 240 mg 24 hr tablet Take 240 mg by mouth once daily. - acetaminophen (TYLENOL ARTHRITIS PAIN) 650 mg CR tablet Take 1 tablet by mouth every 8 hours as needed for pain. - cyanocobalamin (VITAMIN B-12) 1,000 mcg tab Take 1,000 mcg by mouth once daily. - Chromium Picolinate 200 mcg tab Take 1 tablet by mouth once daily. - vitamin E, dl,tocopheryl acet, (VITAMIN E, DL, ACETATE,) 180 mg (400 unit) capsule Take 1 capsule by mouth once daily. - Glucosamine-Chondroit in (OSTEO BI-FLEX) 250-200 mg tab Take 2 tablets by mouth once daily. - potassium chloride ER (KLOR-CON) 20 mEq tablet Take 1 tablet by mouth once daily. - calcium carb-D3-mag ox-zinc ox (NISH MAG ZINC PLUS D3) 333 mg-133 unit -133 mg-5 mg tab Take 1 tablet by mouth once daily. - levothyroxine (SYNTHROID) 50 mcg tablet Take 1 tablet by mouth daily before breakfast. - pravastatin (PRAVACHOL) 20 mg tablet Take 1 tablet by mouth once daily. - turmeric root extract 500 mg cap Take 1 capsule by mouth once daily. - vit A and D3 in cod liver oil 1,250-135 unit cap Take 1 capsule by mouth once daily. - furosemide (LASIX) 40 mg tablet Take 1 tablet by mouth once daily. - fluticasone-salmetero l (ADVAIR) 500-50 mcg/dose dsdv Inhale 1 Puff as instructed two times a day. - Echinacea 500 mg cap Take 1 capsule by mouth two times a day. - lisinopril 10 mg tablet Take 1 tablet by mouth once daily. - Cholecalciferol, Vitamin D3, 2,000 unit cap Take 1 tablet by mouth once daily. - vitamin A-ascorbic acid-vitamin E-minerals (OCUVITE) Tab Take 1 tablet by mouth once daily. - WDC-Gxgduxzrv-Hbvsfjg nophen (ALLERGY SINUS PE) 2-5-325 mg ORAL Tab Take by mouth as needed. - GARLIC 1,000 MG CAP Take one tablet daily. - aspirin(ADULT LOW DOSE ASPIRIN 81 MG TAB, DELAYED RELEASE) Take one(1) tablet daily. - multivitamins(DAILY MULTIVITAMIN TAB) Take one(1) tablet daily. 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 [Z01.419] 08/27/2007 Class: Chronic FAMILY HX ISCHEM HEART DIS [Z82.49] OBESITY NOS [E66.9] IMPAIRED FASTING GLUCOSE [R73.01] 08/27/2007 Screening for colon cancer [Z12.11] 10/07/2012 At risk for osteoporosis [Z91.89] 08/25/2013 Acute respiratory failure with hypoxia (HCC) [J*10/02/2023 Encounter Status:Closed by COLE MELÉNDEZ on 01/11/24 Normal [facility] OXIMETRY WITH AMBULATIONon 0 01-10-2024 Nichelle Nelson RPF Sara 01/10/2024 12:47 PM RESPIRATORY THERAPY OXIMETRY WITH AMBULATION Oximetry with Ambulation Test for This Encounter O2 Device O2 Adapter NC O2 Flow SpO2% HR Activity Ft Walked (ft) Time (min) Avg Speed (MPH) R/A 73 114 Resting NC 2 85 104 Resting NC 3 94 99 Resting NC 3 87 112 Walking, usual pace 85 1.4 0.69 NC 4 95 98 Resting NC 4 87 107 Walking, usual pace 95 1.5 0.72 NC 5 96 92 Resting NC 5 91 107 Walking, usual pace 190 3 0.72 General Information Pulse Oximetry Site Total Time Spent Walking Assistance/O2 Supply Carrier R Index Finger 30 Wheeled Walker NAME: BETSY Rodriguez PATIENT NAME: Makenna Andre DATE: January 10, 2024 TIME: 12:47 PM Comment: [facility] CNOVon 01-08-2024 [facility] MAKENNA ANDRE ([id number]) 1955 F Date Time Provider Department 01/08/24 11:00 AM BASSEM CASE [facility] During your visit today, we recorded the following information about you: Pulse Respiration Blood pressure Weight 104/minute 30/minute 170/86 69.4 kg Bassem Case APRN.FUR COAT SEWER 01/08/2024 12:37 PM Signed Chronic Care Clinic/CHF/Pulmonary Hypertension Clinic Chief Complaint Exertional shortness of breath, PH-ILD management high risk medication HISTORY OF PRESENT ILLNESS: Ms. Andre is a 67 year old female patient who is known to the heart failure clinic and presents as follow-up for her recently diagnosed PAH-ILD. Patient was hospitalized for acute hypoxic respiratory failure -10/06 of this year in which a workup revealed the presence of significant interstitial lung disease/fibrosis on the CT scan as well as presence of pulmonary hypertension cardiac echo. Eventually the patient underwent a right heart catheterization which was impressive for precapillary PAH She was then subsequently started on Tyvaso DPI by Dr. Godwin. Patient states that she has done very well since starting Tyvaso DPI. She has noted significant improvement in her exertional dyspnea and fatigue. She is able to complete activities of routine daily living much easier and he feels overall much better. Patient's current dosage of Tyvaso DPI 64mcg 4 times daily She has been on this dose about 5 weeks now-tells me things are much better since stating Tyvaso. Patient has been maintained continuously on 5 L of oxygen per nasal cannula and she has shown marked improvement in energy and symptoms overall She denies any pedal edema, chest pain, shortness of breath, palpitations, fever, chills Her weight is stable at 153lbs Patient voices no complaints today She also denies diarrhea, palpitations, flushing orlightheadedness. On arrival to the CHF clinic the patient ambulated from the waiting area to the exam room. At the time she was on 3 L of portable pulsed oxygen unit. Will measure her sat at 83%. She was slightly dyspneic at the pulm this point and tachycardic with a heart rate of 104 I switch the patient over to her usual 5 L on our wall outlet oxygen supply. After a period of about 5 minutes the patient's O2 saturation had risen to 99% and her blood pressure which originally was 170/86 had dropped to 153/67. The patient was essentially asymptomatic at this time. She does have a tank which is capable of giving her 5 L for the ride home in her car. I called over to the office and made arrangements for for this patient to be tested for a portable oxygen unit which can provide her for with 5 to 6 L of oxygen. Her current device only goes up to 3 L. She will be tested this on January 08 at [facility] at 12:30 PM She will have a 6-minute walk at the time with the intent to be able to order a higher portable oxygen unit. Patient's current diuretic regimen is Lasix 40 mg p.o. daily. Patient actually is euvolemic today She tells me she does not need to take her Lasix on a daily basis and does not do so. She only takes Lasix when her her ankles are slightly swollen or she notices a slight increase in her weight. Patient does weigh herself on a daily basis Again patient is able to complete her routine activities of daily living She is even tackles and chores around the house successfully. Patient's current diuretic regimen is Lasix 40 mg p.o. daily Other than the Tyvaso DPI the patient is on no additional PAH medications PAST MEDICAL HISTORY No date: Allergic rhinitis, cause unspecified No date: Essential hypertension, benign No date: Family history of ischemic heart disease Comment: father age 50, brother age 42 No date: Obesity, unspecified PAST SURGICAL HISTORY 11-01-12: COLONOSCOPY FLX DX W/COLLJ SPEC WHEN PFRMD 1992: PAST SURGICAL HISTORY OF Comment: REMOVAL OF BENIGN CYST-RIGHT SIDE OF NECK 1993: TONSILLECTOMY AND ADENOIDECTOMY AGE 12/> FAMILY HISTORY Problem Relation Age of Onset Heart Father [place] - first age 40's, CVA age 50 Stroke Father CVA - first age 42, CVA age 50 Hypertension Mother Diabetes Mother Heart Brother age 41; also heavy etoh use Heart Brother stented age 42 Hypertension Brother Breast Cancer Maternal Aunt x2 Heart Paternal Uncle x2 Allergies Mother Cancer Mother pancreatic cancer Social History Tobacco Use Smoking status: Never Substance Use Topics Alcohol use: No Drug use: No ALLERGIES Allergen Reactions Darvocet-N 100 [Pro* Unknown numbness Penicillins Hives Medications: Current Outpatient Medications Medication Sig Dispense Refill OXYGEN, HOME THERAPY, Inhale 6-10 L/min as instructed continuous. dilTIAZem LA (CARDIZEM LA) 240 mg 24 hr tablet Take 240 mg by mouth once daily. acetaminophen (TYLENOL ARTHR (more content not included)... Normal [facility] CNOVon 11-15-2023 CNOV Office Visit ([facility]) MAKENNA ANDRE ([id number]) 1955 F Date Time Provider Department 11/15/23 11:00 AM KARIESUSY NUNESA [facility] During your visit today, we recorded the following information about you: Pulse Respiration Blood pressure Weight 92/minute 22/minute 156/76 71.7 kg Bassem Case, [facility] 11/16/2023 11:13 AM Signed Chronic Care Clinic/CHF Chief Complaint Exertional shortness of breath, PH-ILD management high risk medication HISTORY OF PRESENT ILLNESS: Ms. Andre is a 67 year old female patient who is known to the heart failure clinic and presents as follow-up for her recently diagnosed PAH-ILD. Patient was hospitalized for acute hypoxic respiratory failure -10/06 of this year in which a workup revealed the presence of significant interstitial lung disease/fibrosis on the CT scan as well as presence of pulmonary hypertension cardiac echo. Eventually the patient underwent a right heart catheterization which was impressive for precapillary PAH She was then subsequently started on Tyvaso DPI by Dr. Godwin. Patient states that she has done very well since starting Tyvaso DPI. She has noted significant improvement in her exertional dyspnea and fatigue. She is able to complete activities of routine daily living much easier and he feels overall much better. Patient's current dosage of Tyvaso DPI 32 mcg 4 times daily Plans as the patient is doing well she will uptitrate to 48 mcg of Tyvaso DPI in 3 days which is Thursday 11/16 Since her hospitalization the patient has been maintained continuously on 5 L of oxygen per nasal cannula and she has shown marked improvement in energy and symptoms overall She denies any pedal edema, chest pain, shortness of breath, palpitations, fever, chills Her weight is stable Patient voices no complaints today She also denies diarrhea or flushing lightheadedness. Hemodynamics today are satisfactory Again patient is able to complete her routine activities of daily living She is even tackles and chores around the house successfully. Patient's current diuretic regimen is Lasix 40 mg p.o. daily Other than the Tyvaso DPI the patient is on no additional PAH medications PAST MEDICAL HISTORY Diagnosis Date Allergic rhinitis, cause unspecified Essential hypertension, benign Family history of ischemic heart disease father age 50, brother age 42 Obesity, unspecified PAST SURGICAL HISTORY Procedure Laterality Date COLONOSCOPY FLX DX W/COLLJ SPEC WHEN PFRMD 11-01-12 PAST SURGICAL HISTORY OF 1992 REMOVAL OF BENIGN CYST-RIGHT SIDE OF NECK TONSILLECTOMY AND ADENOIDECTOMY AGE 12/1992 FAMILY HISTORY Problem Relation Age of Onset Heart Father [place] - first age 40's, CVA age 50 Stroke Father CVA - first age 42, CVA age 50 Hypertension Mother Diabetes Mother Heart Brother age 41; also heavy etoh use Heart Brother stented age 42 Hypertension Brother Breast Cancer Maternal Aunt x2 Heart Paternal Uncle x2 Allergies Mother Cancer Mother pancreatic cancer Social History Tobacco Use Smoking status: Never Substance Use Topics Alcohol use: No Drug use: No ALLERGIES Allergen Reactions Darvocet-N 100 [Pro* Unknown numbness Penicillins Hives Medications: Current Outpatient Medications Medication Sig Dispense Refill OXYGEN, HOME THERAPY, Inhale 6-10 L/min as instructed continuous. dilTIAZem LA (CARDIZEM LA) 240 mg 24 hr tablet Take 240 mg by mouth once daily. acetaminophen (TYLENOL ARTHRITIS PAIN) 650 mg CR tablet Take 1 tablet by mouth every 8 hours as needed for pain. cyanocobalamin (VITAMIN B-12) 1,000 mcg tab Take 1,000 mcg by mouth once daily. Chromium Picolinate 200 mcg tab Take 1 tablet by mouth once daily. vitamin E, dl,tocopheryl acet, (VITAMIN E, DL, ACETATE,) 180 mg (400 unit) capsule Take 1 capsule by mouth once daily. Glucosamine-Chondroit in (OSTEO BI-FLEX) 250-200 mg tab Take 2 tablets by mouth once daily. potassium chloride ER (KLOR-CON) 20 mEq tablet Take 1 tablet by mouth once daily. calcium carb-D3-mag ox-zinc ox (NISH MAG ZINC PLUS D3) 333 mg-133 unit -133 mg-5 mg tab Take 1 tablet by mouth once daily. levothyroxine (SYNTHROID) 50 mcg tablet Take 1 tablet by mouth daily before breakfast. pravastatin (PRAVACHOL) 20 mg tablet Take 1 tablet by mouth once daily. turmeric root extract 500 mg cap Take 1 capsule by mouth once daily. vit A and D3 in cod liver oil 1,250-135 unit cap Take 1 capsule by mouth once daily. furosemide (LASIX) 40 mg tablet Take 1 tablet by mouth once daily. fluticasone-salmetero l (ADVAIR) 500-50 mcg/dose dsdv Inhale 1 Puff as instructed two times a day. Echinacea 500 mg cap Take 1 capsule by mouth two times a day. lisinopril 10 mg tablet Take 1 tablet by mouth once daily. 90 tablet 3 Cholecalciferol, Vitamin D3, 2,000 unit cap Take 1 tablet by mouth once liz (more content not included)... Normal [facility] Cardiology Visit Reporton Cardiology Visit Report Normal [facility] 10-26-2023 [facility] Telephone ([facility]) MAKENNA ANDRE ([id number]) 1955 F Date Time Provider Department 10/26/23 AMOL GODWIN [facility] During your visit today, we recorded the following information about you: Ifeoma Coy 10/26/2023 10:52 AM Signed Plan of treatment signed AND faxed back to [facility]. Ifeoma Coy Allergies As of Date: 10/26/2023 Noted Allergy Reaction DARVOCET-N 100 (PROPOXYPHENE N-AC*08/27/2007 16 - Unknown Comments: numbness PENICILLINS 10/07/2012 4 - Hives Date Reviewed: 10/24/2023 Reviewed by: Amol Godwin MD - Fully Assessed Reason for Visit: FYI-No Action Needed [265] Prescriptions as of 10/26/2023 - OXYGEN, HOME THERAPY, Inhale 6-10 L/min as instructed continuous. - dilTIAZem LA (CARDIZEM LA) 240 mg 24 hr tablet Take 240 mg by mouth once daily. - acetaminophen (TYLENOL ARTHRITIS PAIN) 650 mg CR tablet Take 1 tablet by mouth every 8 hours as needed for pain. - cyanocobalamin (VITAMIN B-12) 1,000 mcg tab Take 1,000 mcg by mouth once daily. - Chromium Picolinate 200 mcg tab Take 1 tablet by mouth once daily. - vitamin E, dl,tocopheryl acet, (VITAMIN E, DL, ACETATE,) 180 mg (400 unit) capsule Take 1 capsule by mouth once daily. - Glucosamine-Chondroit in (OSTEO BI-FLEX) 250-200 mg tab Take 2 tablets by mouth once daily. - potassium chloride ER (KLOR-CON) 20 mEq tablet Take 1 tablet by mouth once daily. - calcium carb-D3-mag ox-zinc ox (NISH MAG ZINC PLUS D3) 333 mg-133 unit -133 mg-5 mg tab Take 1 tablet by mouth once daily. - levothyroxine (SYNTHROID) 50 mcg tablet Take 1 tablet by mouth daily before breakfast. - pravastatin (PRAVACHOL) 20 mg tablet Take 1 tablet by mouth once daily. - turmeric root extract 500 mg cap Take 1 capsule by mouth once daily. - vit A and D3 in cod liver oil 1,250-135 unit cap Take 1 capsule by mouth once daily. - furosemide (LASIX) 40 mg tablet Take 1 tablet by mouth once daily. - fluticasone-salmetero l (ADVAIR) 500-50 mcg/dose dsdv Inhale 1 Puff as instructed two times a day. - Echinacea 500 mg cap Take 1 capsule by mouth two times a day. - lisinopril 10 mg tablet Take 1 tablet by mouth once daily. - Cholecalciferol, Vitamin D3, 2,000 unit cap Take 1 tablet by mouth once daily. - vitamin A-ascorbic acid-vitamin E-minerals (OCUVITE) Tab Take 1 tablet by mouth once daily. - MVC-Wnmtzpbjh-Ctafylc nophen (ALLERGY SINUS PE) 2-5-325 mg ORAL Tab Take by mouth as needed. - GARLIC 1,000 MG CAP Take one tablet daily. - aspirin(ADULT LOW DOSE ASPIRIN 81 MG TAB, DELAYED RELEASE) Take one(1) tablet daily. - multivitamins(DAILY MULTIVITAMIN TAB) Take one(1) tablet daily. 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 - here [Z01.419] 08/27/2007 Class: Chronic FAMILY HX ISCHEM HEART DIS [Z82.49] OBESITY NOS [E66.9] IMPAIRED FASTING GLUCOSE [R73.01] 08/27/2007 Screening for colon cancer [Z12.11] 10/07/2012 At risk for osteoporosis [Z91.89] 08/25/2013 Acute respiratory failure with hypoxia (HCC) [J*10/02/2023 Encounter Status:Closed by IFEOMA COY on 10/26/23 Normal [facility] CNOVon 10-24-2023 CNOV [facility] Visit ([facility] MAKENNA ANDRE ([id number]) 1955 F Date Time Provider Department 10/24/23 2:20 PM AMOL GODWIN [facility] During your visit today, we recorded the following information about you: Temperature Pulse Respiration Blood pressure 98 degrees 94/minute 18/minute 159/77 Weight Height 70.1 kg 1.575 m Amol Godwin MD 10/24/2023 2:56 PM Signed Patient Name: Makenna Andre PRIMARY CARE PHYSICIAN: Hoda Del Rosario MD Date of visit: October 24, 2023 COMMUNICATION WILL BE SENT VIA SHARED MEDICAL RECORDS OR US MAIL. Subjective: Makenna Andre is a 67 year old female who is known to this clinic and presents as follow up for recently diagnosed PH-ILD. Patient known to me after she was recently hospitalized for acute (on chronic) hypoxic respiratory failure (10/01-10/06) in which work-up revealed presence of significant interstitial lung disease/fibrosis on CT chest and presence of pulmonary hypertension as suggested by echo. She eventually underwent inpatient RHC which was impressive for precapillary PH (results below). She presents today to establish care in clinic. Recommendations at time of discharge were to undergo SNIFF testing given elevation in R hemidiaphragm as well as initiation of inhaled treprostinil. With regards to patients history, patient had no respiratory issues the majority of her life. This all changed last Spring (08/2022) when she started to develop leg swelling, but ironically no shortness of breath. She went to PCP and was immediately sent to ED. In [place] ED she underwent imaging and she was told she had double pneumonia not from bacterial or virus in which she was placed on abx. She was also placed on oxygen at the time. Symptoms predominantly were reduced energy. Denied SOB/dyspnea, coughing, wheezing, or palpitations. She believes this pneumonia was potentially related to her hip surgery which she had 1 month before this all started. She was being seen by a battery tester in [place] and was told she may have COPD. She was placed on Advair 500/50 BID in which she was prescribed this since 07/2023 with minimal benefit. She was referred to [facility] for second opinion and on arrival patient was found to be in acute on chronic hypox respiratory failure and thus sent to hospital to be further evaluated with results discussed above. Since her hospitalization she was discharged on 6LNC (increased from 4LNC) and started on Tyvaso DPI. With regards to later, she endorses marked improvement in energy and symptoms overall since starting the Tyvaso. She has reduced her O2 to 5LNC as 6L was too much and I'm still doing OK. Denies any pedal edema, chest pain, shortness of breath, palpitations, fevers, chills, or NS. Weight is stable. She never grew up on farm. She owns inside cat/dog (pug/bulldog). Denies birds at this time. She did have a bird, cockateel for about 6 years over 28 years ago. Denies any bird exposures, rodent manifestations, bats exposures, jacuzzi, or mold in the house. 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 + dust exposure in which she frequently blew black out of her nose. Denies any unusual hobbies. Had remote cigarette use predominanly socially 3 cigarettes/week, last cigarette was > 40 years ago. Denies drug use, ETOH abuse (occasional social use). Has been on statin for years. Has no personal hx of AI. Family hx of lupus (cousins). + arthritis involving hands. PMHx: PAST MEDICAL HISTORY Diagnosis Date Allergic rhinitis, cause unspecified Essential hypertension, benign Family history of ischemic heart disease father age 50, brother age 42 Obesity, unspecified MEDICATIONS: OXYGEN, HOME THERAPY, Inhale 6-10 L/min as instructed continuous. dilTIAZem LA (CARDIZEM LA) 240 mg 24 hr tablet Take 240 mg by mouth once daily. acetaminophen (TYLENOL ARTHRITIS PAIN) 650 mg CR tablet Take 1 tablet by mouth every 8 hours as needed for pain. cyanocobalamin (VITAMIN B-12) 1,000 mcg tab Take 1,000 mcg by mouth once daily. Chromium Picolinate 200 mcg tab Take 1 tablet by mouth once daily. vitamin E, dl,tocopheryl acet, (VITAMIN E, DL, ACETATE,) 180 mg (400 unit) capsule Take 1 capsule by mouth once daily. Glucosamine-Chondroit in (OSTEO BI-FLEX) 250-200 mg tab Take 2 tablets by mouth once daily. potassium chloride ER (KLOR-CON) 20 mEq tablet Take 1 tablet by mouth once daily. calcium carb-D3-mag ox-zinc ox (NISH MAG ZINC PLUS D3) 333 mg-133 unit -133 mg-5 mg tab Take 1 tablet by mouth once daily. levothyroxine (SYNTHROID) 50 mcg tablet Take 1 tablet by mouth daily before breakfast. pravastatin (PRAVACHOL) 20 mg tablet Take 1 tablet by mouth once daily. turmeric root extract 500 mg cap Take 1 capsule by mouth once da (more content not included)... [facility]) MAKENNA ANDRE ([id number]) 1955 F Date Time Provider Department 10/10/23 AMOL GODWIN [facility] During your visit today, we recorded the following information about you: Pearl Connor 10/10/2023 11:49 AM Signed Patient wants to know how she can get portable oxygen. Please advise at [phone]. Amber Holman MA 10/10/2023 11:59 AM Signed Please see message below, thank you Pt is requesting portable oxygen Amber Holman MA Recent Office Visits - This Specialty 10/02/2023 Pulmonary HTN (HCC) Pulmonary Medicine Arie Lee MD NOV: 10/24/2023 Amol Godwin MD 10/11/2023 11:01 AM Signed Looks like patient qualifies based on testing done at [facility] on 06/2023. Will order AC Allergies As of Date: 10/10/2023 Noted Allergy Reaction DARVOCET-N 100 (PROPOXYPHENE N-AC*08/27/2007 16 - Unknown Comments: numbness PENICILLINS 10/07/2012 4 - Hives Date Reviewed: 10/07/2023 Reviewed by: Hoda Cole RN - Fully Assessed Reason for Visit: Portable oxygen [Other] Primary Visit Diagnosis:Pulmonary HTN (HCC) [I27.20] Order(s):PORTABLE OXYGEN CONCENTRATOR [[id number]] Order #: [id number] Prescriptions as of 10/11/2023 - OXYGEN, HOME THERAPY, Inhale 6-10 L/min as instructed continuous. - dilTIAZem LA (CARDIZEM LA) 240 mg 24 hr tablet Take 240 mg by mouth once daily. - acetaminophen (TYLENOL ARTHRITIS PAIN) 650 mg CR tablet Take 1 tablet by mouth every 8 hours as needed for pain. - cyanocobalamin (VITAMIN B-12) 1,000 mcg tab Take 1,000 mcg by mouth once daily. - Chromium Picolinate 200 mcg tab Take 1 tablet by mouth once daily. - vitamin E, dl,tocopheryl acet, (VITAMIN E, DL, ACETATE,) 180 mg (400 unit) capsule Take 1 capsule by mouth once daily. - Glucosamine-Chondroit in (OSTEO BI-FLEX) 250-200 mg tab Take 2 tablets by mouth once daily. - potassium chloride ER (KLOR-CON) 20 mEq tablet Take 1 tablet by mouth once daily. - calcium carb-D3-mag ox-zinc ox (NISH MAG ZINC PLUS D3) 333 mg-133 unit -133 mg-5 mg tab Take 1 tablet by mouth once daily. - levothyroxine (SYNTHROID) 50 mcg tablet Take 1 tablet by mouth daily before breakfast. - pravastatin (PRAVACHOL) 20 mg tablet Take 1 tablet by mouth once daily. - turmeric root extract 500 mg cap Take 1 capsule by mouth once daily. - vit A and D3 in cod liver oil 1,250-135 unit cap Take 1 capsule by mouth once daily. - furosemide (LASIX) 40 mg tablet Take 1 tablet by mouth once daily. - fluticasone-salmetero l (ADVAIR) 500-50 mcg/dose dsdv Inhale 1 Puff as instructed two times a day. - Echinacea 500 mg cap Take 1 capsule by mouth two times a day. - lisinopril 10 mg tablet Take 1 tablet by mouth once daily. - Cholecalciferol, Vitamin D3, 2,000 unit cap Take 1 tablet by mouth once daily. - vitamin A-ascorbic acid-vitamin E-minerals (OCUVITE) Tab Take 1 tablet by mouth once daily. - JUG-Wkwwiglhg-Uixasoz nophen (ALLERGY SINUS PE) 2-5-325 mg ORAL Tab Take by mouth as needed. - GARLIC 1,000 MG CAP Take one tablet daily. - aspirin(ADULT LOW DOSE ASPIRIN 81 MG TAB, DELAYED RELEASE) Take one(1) tablet daily. - multivitamins(DAILY MULTIVITAMIN TAB) Take one(1) tablet daily. 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] 08/27/2007 Class: Chronic FAMILY HX ISCHEM HEART DIS [Z82.49] OBESITY NOS [E66.9] IMPAIRED FASTING GLUCOSE [R73.01] 08/27/2007 Screening for colon cancer [Z12.11] 10/07/2012 At risk for osteoporosis [Z91.89] 08/25/2013 Acute respiratory failure with hypoxia (HCC) [J*10/02/2023 Encounter Status:Closed by AMOL GODWIN on 10/11/23 [facility] - Chemistry and C hemistry - challengeOrdered By: John Wheatley on 05-16-2023 Natriuretic peptide B (Bld) [Mass/Vol] 21.0 pg/mL 0-100 [facility] - Chemistry and C hemistry - challengeOrdered By: Hoda Del Rosario on 04-18-2023 Free T4 [Mass/Vol] 1.03 ng/dL 0.76-1.46 [facility] No Panel InformationOrdered By: Hoda Del Rosario on 04-18-2023 Thyroid Stimulating Hormone (TSH) 0.92 uIU/mL 0.358-3.74 [facility] Basophil percentageOrdered B y: John Wheatley on 04-16-2023 Cholesterol [Mass/Vol] 170 mg/dL <200 [facility] Comment on above: <200 mg/dL Desirable 200-240 mg/dL Borderline >240 mg/dL High Risk Triglyceride [Mass/Vol] 75 mg/dL <199 [facility] Comment on above: The drugs N-Acetylcy steine and Metamizole may falsely depress this assay.Serum Triglycerides Reference Interval Normal <150 mg/dL Borderline high 150 - 199 mg/dL High 200 - 499 mg/dL Very High > or = 500 mg/dL Serum or plasma cholesterol in HDL measurement (mass/volume)Ordered By: John Wheatley on 04-16-2023 Cholesterol in HDL [Mass/Vol] 53 mg/dL >40 [facility] Comment on above: The drugs N-Acetylcy steine and Metamizole may falsely depress this assay. Reference Range HDL <40 mg/dL Low HDL Cholesterol HDL >or= 60 mg/dL High HDL Cholesterol Serum or plasma cholesterol in VLDL measurement (mass/volume)Ordered By: John Wheatley on 04-16-2023 Cholesterol in VLDL [Mass/Vol] 15 mg/dL 5-40 [facility] Serum or plasma low density lipoprotein (LDL) cholesterol measurement (mass/volume)Ordered By: John Wheatley on 04-16-2023 Cholesterol in LDL [Mass/Vol] 102 mg/dL 0-130 [facility] Basophil percentageOrdered B y: John Wheatley on 04-04-2023 Chloride [Moles/Vol] 99 mmol/L 98-107 [facility] Glucose [Mass/Vol] 106 mg/dL 74-106 [facility] Comment on above: Fasting Glucose resu lt from 100 to 125 mg/dL suggests IMPAIRED HOMEOSTASIS per A.D.A. criteria. Potassium [Moles/Vol] 3.8 mmol/L 3.5-5.1 [facility] Sodium [Moles/Vol] 139 mmol/L 136-145 [facility] WBC (Bld) [#/Vol] 9.0 10*3/uL 4.4-11.0 [facility] Blood erythrocytes count (nu mber/volume)Ordered By: John Wheatley on 04-04-2023 RBC (Bld) [#/Vol] 4.83 10*6/uL 4.2-5.4 [facility] Blood hemoglobin measurement (mass/volume)Ordered By: John Wheatley on 04-04-2023 Hemoglobin (Bld) [Mass/Vol] 14.0 g/dL 12.0-15. 0 [facility] Blood platelet mean volumeOr dered By: John Wheatley on 04-04-2023 Platelet mean volume (Bld) [Entitic vol] 9.1 fL 6.2-12.0 [facility] Determination of erythrocyte mean corpuscular volume (MCV)Ordered By: John Wheatley on 04-04-2023 MCV (RBC) [Entitic vol] 96.1 fL 81-99 [facility] Hematocrit Auto (Bld) [Volum e fraction]Ordered By: John Wheatley on 04-04-2023 Hematocrit (Bld) [Volume fraction] 46.4 % 37-47 [facility] - Chemistry and C hemistry - challengeOrdered By: John Wheatley on 04-04-2023 CO2 [Moles/Vol] 35.0 mmol/L 21.0-32.0 [facility] Urea nitrogen/Creatinine [Mass ratio] 15.9 mg/mg 10-20 [facility] - Hematology and Cell countsOrdered By: John Wheatley on 04-04-2023 Erythrocyte distribution width (RBC) [Entitic vol] 48.0 fL 35.1-43.9 [facility] Erythrocyte distribution width (RBC) [Ratio] 13.6 % 11.6-14.6 [facility] MCH (RBC) [Entitic mass] 29.0 pg 27.0-32.0 [facility] MCHC Auto (RBC) [Mass/Vol]Or dered By: John Wheatley on 04-04-2023 MCHC (RBC) [Mass/Vol] 30.2 g/dL 32-36 [facility] No Panel InformationOrdered By: John Wheatley on 04-04-2023 Estimated Creatinine Clearance Calc 43.18 ml/min [facility] Estimated GFR (MDRD) Amer 98 mL/min >60 [facility] Comment on above: GFR Calc Estimated GFR (MDRD) Non-Af Amer 81 mL/min >60 [facility] Comment on above: Non- GFR Calc Platelets bldOrdered By: Fan Wheatley on 04-04-2023 Platelets (Bld) [#/Vol] 334 10*3/uL 150-450 [facility] Serum or plasma calcium juanpablo urement (mass/volume)Ordered By: John Wheatley on 04-04-2023 Calcium [Mass/Vol] 9.8 mg/dL 8.5-10.1 [facility] Serum or plasma creatinine m easurement (mass/volume)Ordered By: John Wheatley on 04-04-2023 Creatinine [Mass/Vol] 0.75 mg/dL 0.55-1.02 [facility] Comment on above: The validity of the calculated GFR & GFRAA in patients over 70 years has not been determined. Clinical correlation is essential. Serum or plasma urea nitroge n measurement (mass/volume)Ordered By: John Wheatley on 04-04-2023 Urea nitrogen [Mass/Vol] 12 mg/dL 7-18 [facility] Thin prep Papanicolaou smear with manual screeningOrdered By: John Wheatley on 04-04-2023 Thin prep Papanicolaou smear with manual screening 5 5-15 [facility] Absolute lymphocyte countOrd ered By: Kylah Wan on 02-27-2023 Lymphocytes Auto (Unsp spec) [#/Vol] 3.31 10*3/uL 0.83-4.51 [facility] Basophil percentageOrdered B y: Kylah Wan on 02-27-2023 Basophils/100 WBC (Bld) 0.6 % 0-1 [facility] Eosinophils/100 WBC (Bld) 3.4 % 0-5 [facility] Neutrophils (Bld) [#/Vol] 4.9 10*3/uL 2.0-7.7 [facility] Neutrophils/100 WBC (Bld) 52.1 % 47-70 [facility] Blood lymphocytes/100 leukoc ytesOrdered By: Kylah Wan on 02-27-2023 Lymphocytes/100 WBC (Bld) 35.6 % 19-41 [facility] Blood monocytes/100 leukocyt esOrdered By: Kylah Wan on 02-27-2023 Monocytes/100 WBC (Bld) 8.1 % 0-10 [facility] - Hematology and Cell countsOrdered By: Kylah Wan on 02-27-2023 Immature granulocytes/100 WBC (Bld) 0.200 % 0.0-0.9 [facility] Comment on above: IG% - Immature Granu locytes (promyelocytes, myelocytes and metamyelocytes) > 1% indicates that a LEFT SHIFT is Present. Nucleated RBC/100 WBC (Bld) [Ratio] 0 % 0-5 [facility] Basophil percentageOrdered B y: Lobo Rangel on 12-04-2022 Chloride [Moles/Vol] 96 mmol/L 98-107 [facility] Glucose [Mass/Vol] 123 mg/dL 74-106 [facility] Comment on above: Fasting Glucose resu lt from 100 to 125 mg/dL suggests IMPAIRED HOMEOSTASIS per A.D.A. criteria. Potassium [Moles/Vol] 3.3 mmol/L 3.5-5.1 [facility] Sodium [Moles/Vol] 136 mmol/L 136-145 [facility] - Chemistry and C hemistry - challengeOrdered By: Lobo Rangel on 12-04-2022 CO2 [Moles/Vol] 35.0 mmol/L 21.0-32.0 [facility] Urea nitrogen/Creatinine [Mass ratio] 15.8 mg/mg 10-20 [facility] No Panel InformationOrdered By: Lobo Rangel on 12-04-2022 Estimated GFR (MDRD) Amer 121 mL/min >60 [facility] Comment on above: GFR Calc Estimated GFR (MDRD) Non-Af Amer 100 mL/min >60 [facility] Comment on above: Non- GFR Calc Serum or plasma calcium juanpablo urement (mass/volume)Ordered By: Lobo Rangel on 12-04-2022 Calcium [Mass/Vol] 9.9 mg/dL 8.5-10.1 [facility] Serum or plasma creatinine m easurement (mass/volume)Ordered By: Lobo Rangel on 12-04-2022 Creatinine [Mass/Vol] 0.63 mg/dL 0.55-1.02 [facility] Comment on above: The validity of the calculated GFR & GFRAA in patients over 70 years has not been determined. Clinical correlation is essential. Serum or plasma urea nitroge n measurement (mass/volume)Ordered By: Lobo Rangel on 12-04-2022 Urea nitrogen [Mass/Vol] 10 mg/dL 7-18 [facility] Thin prep Papanicolaou smear with manual screeningOrdered By: Lobo Rangel on 12-04-2022 Thin prep Papanicolaou smear with manual screening 5 5-15 [facility] Absolute lymphocyte countOrd ered By: Dr. Barlow on 11-08-2022 Lymphocytes Auto (Unsp spec) [#/Vol] 2.12 10*3/uL 0.83-4.51 [facility] Assessment of wrist artery p atency prior to arterial punctureOrdered By: Dr. Barlow on 11-08-2022 Arterial patency Wrist artery --pre arterial puncture Positive [facility] Base excessOrdered By: Dr. Leonor lima on 11-08-2022 Base excess Calc (BldV) [Moles/Vol] 13 mmol/L -2-2 [facility] Basophil percentageOrdered B y: Dr. Barlow on 11-08-2022 Basophil percentage 37.6 mmol/L 22- [facility] Basophils/100 WBC (Bld) 96 % 95-99 [facility] Basophils/100 WBC (Bld) 0.2 % 0-1 [facility] Chloride [Moles/Vol] 95 mmol/L 98-107 [facility] Eosinophils/100 WBC (Bld) 1.6 % 0-5 [facility] Glucose [Mass/Vol] 114 mg/dL 74-106 [facility] Comment on above: Fasting Glucose resu lt from 100 to 125 mg/dL suggests IMPAIRED HOMEOSTASIS per A.D.A. criteria. Neutrophils (Bld) [#/Vol] 5.9 10*3/uL 2.0-7.7 [facility] Neutrophils/100 WBC (Bld) 68.3 % 47-70 [facility] Potassium [Moles/Vol] 3.7 mmol/L 3.5-5.1 [facility] Sodium [Moles/Vol] 137 mmol/L 136-145 [facility] WBC (Bld) [#/Vol] 8.7 10*3/uL 4.4-11.0 [facility] Blood erythrocytes count (nu mber/volume)Ordered By: Dr. Barlow on 11-08-2022 RBC (Bld) [#/Vol] 4.91 10*6/uL 4.2-5.4 [facility] Blood hemoglobin measurement (mass/volume)Ordered By: Dr. Barlow on 11-08-2022 Hemoglobin (Bld) [Mass/Vol] 14.0 g/dL 12.0-15. 0 [facility] Blood lymphocytes/100 leukoc ytesOrdered By: Dr. Barlow on 11-08-2022 Lymphocytes/100 WBC (Bld) 24.5 % 19-41 [facility] Blood monocytes/100 leukocyt esOrdered By: Dr. Barlow on 11-08-2022 Monocytes/100 WBC (Bld) 5.2 % 0-10 [facility] Blood platelet mean volumeOr dered By: Dr. Barlow on 11-08-2022 Platelet mean volume (Bld) [Entitic vol] 8.6 fL 6.2-12.0 [facility] CO2 (BldA) [Partial pressure ]Ordered By: Dr. Barlow on 11-08-2022 CO2 (Bld) [Partial pressure] 55.9 mm[Hg] 35-45 [facility] Determination of erythrocyte mean corpuscular volume (MCV)Ordered By: Dr. Barlow on 11-08-2022 MCV (RBC) [Entitic vol] 90.4 fL 81-99 [facility] Hematocrit Auto (Bld) [Volum e fraction]Ordered By: Dr. Barlow on 11-08-2022 Hematocrit (Bld) [Volume fraction] 44.4 % 37-47 [facility] Laboratory - Chemistry and C hemistry - challengeOrdered By: Dr. Barlow on 11-08-2022 CO2 [Moles/Vol] 37.0 mmol/L 21.0-32.0 [facility] Natriuretic peptide B (Bld) [Mass/Vol] 11.7 pg/mL 0-100 [facility] Urea nitrogen/Creatinine [Mass ratio] 16.6 mg/mg 10-20 [facility] - Hematology and Cell countsOrdered By: Dr. Barlow on 11-08-2022 Erythrocyte distribution width (RBC) [Entitic vol] 57.4 fL 35.1-43.9 [facility] Erythrocyte distribution width (RBC) [Ratio] 17.1 % 11.6-14.6 [facility] Immature granulocytes/100 WBC (Bld) 0.200 % 0.0-0.9 [facility] Comment on above: IG% - Immature Granu locytes (promyelocytes, myelocytes and metamyelocytes) > 1% indicates that a LEFT SHIFT is Present. MCH (RBC) [Entitic mass] 28.5 pg 27.0-32.0 [facility] Nucleated RBC/100 WBC (Bld) [Ratio] 0 % 0-5 [facility] MCHC Auto (RBC) [Mass/Vol]Or dered By: Dr. Barlow on 11-08-2022 MCHC (RBC) [Mass/Vol] 31.5 g/dL 32-36 [facility] No Panel InformationOrdered By: Dr. Barlow on 11-08-2022 Blood Gas Liter Flow 3.0 /min [facility] Blood Gas Sample Site L Brach [facility] Blood Gas Specimen Type ART [facility] Blood Gas Total CO2 39 mmol/L [place] [facility] Oxygen Delivery Device Cannula [facility] D-Dimer Quantitative (PE/DVT) 2.16 FEU/ug/m 0.27-0.49 [facility] Comment on above: D-Dimer ELEVATED (>0 .49): Additional studies and clinicalassessments are indicated to conclude diagnosis of:Deep Vein Thrombosis (DVT) or Pulmonary Embolism (PE)CRITICAL VALUE VERIFIED. CALLED TO MOISE MIMS11/08/22 1601 Jairo Ram.RESULTS READ BACK BY SAME . Estimated Creatinine Clearance Calc 41.76 ml/min [facility] Estimated GFR (MDRD) Amer 128 mL/min >60 [facility] Comment on above: GFR Calc Estimated GFR (MDRD) Non-Af Amer 106 mL/min >60 [facility] Comment on above: Non- GFR Calc Troponin I High Sensitivity 8 pg/mL 3.0-54.0 [facility] Comment on above: Please Note: New Sparkle t Units and Gender Specific Reference Ranges. For more information see Policy Stat Procedure [place] High Sensitivity Troponin (TNIH) and attachments. Oxygen (BldA) [Partial press ure]Ordered By: Dr. Barlow on 11-08-2022 Oxygen (Bld) [Partial pressure] 84 mmHG 75-100 [facility] Platelets bldOrdered By: Dr. Barlow on 11-08-2022 Platelets (Bld) [#/Vol] 304 10*3/uL 150-450 [facility] Serum or plasma calcium juanpablo urement (mass/volume)Ordered By: Dr. Barlow on 11-08-2022 Calcium [Mass/Vol] 10.3 mg/dL 8.5-10.1 [facility] Serum or plasma creatinine m easurement (mass/volume)Ordered By: Dr. Barlow on 11-08-2022 Creatinine [Mass/Vol] 0.60 mg/dL 0.55-1.02 [facility] Comment on above: The validity of the calculated GFR & GFRAA in patients over 70 years has not been determined. Clinical correlation is essential. Serum or plasma urea nitroge n measurement (mass/volume)Ordered By: Dr. Barlow on 11-08-2022 Urea nitrogen [Mass/Vol] 10 mg/dL 7-18 [facility] Thin prep Papanicolaou smear with manual screeningOrdered By: Dr. Barlow on 11-08-2022 Thin prep Papanicolaou smear with manual screening 5 5-15 [facility] pH measurementOrdered By: Dr Poppy Barlow on 11-08-2022 pH (Unsp spec) 7.44 [pH] 7.35-7.45 [facility] Basophil percentageOrdered B y: Dr. Del Rosario on 10-13-2022 Chloride [Moles/Vol] 97 mmol/L 98-107 [facility] Glucose [Mass/Vol] 130 mg/dL 74-106 [facility] Comment on above: Fasting Glucose resu lt greater than or equal to 126 mg/dL suggests DIABETES MELLITUS per A.D.A. criteria. Potassium [Moles/Vol] 3.8 mmol/L 3.5-5.1 [facility] Sodium [Moles/Vol] 137 mmol/L 136-145 [facility] Laboratory - Chemistry and C hemistry - challengeOrdered By: Dr. Del Rosario on 10-13-2022 CO2 [Moles/Vol] 33.0 mmol/L 21.0-32.0 [facility] Urea nitrogen/Creatinine [Mass ratio] 19.3 mg/mg 10-20 [facility] No Panel InformationOrdered By: Dr. Del Rosario on 10-13-2022 Estimated GFR (MDRD) Amer 113 mL/min >60 [facility] Comment on above: GFR Calc Estimated GFR (MDRD) Non-Af Amer 93 mL/min >60 [facility] Comment on above: Non- GFR Calc Serum or plasma calcium juanpablo urement (mass/volume)Ordered By: Dr. Del Rosario on 10-13-2022 Calcium [Mass/Vol] 10.0 mg/dL 8.5-10.1 [facility] Serum or plasma creatinine m easurement (mass/volume)Ordered By: Dr. Del Rosario on 10-13-2022 Creatinine [Mass/Vol] 0.67 mg/dL 0.55-1.02 [facility] Comment on above: The validity of the calculated GFR & GFRAA in patients over 70 years has not been determined. Clinical correlation is essential. Serum or plasma urea nitroge n measurement (mass/volume)Ordered By: Dr. Del Rosario on 10-13-2022 Urea nitrogen [Mass/Vol] 13 mg/dL 7-18 [facility] Thin prep Papanicolaou smear with manual screeningOrdered By: Dr. Del Rosario on 10-13-2022 Thin prep Papanicolaou smear with manual screening 7 5-15 [facility] Absolute lymphocyte countOrd ered By: Dr. Woo on 09-27-2022 Lymphocytes Auto (Unsp spec) [#/Vol] 1.68 10*3/uL 0.83-4.51 [facility] Basophil percentageOrdered B y: Dr. Woo on 09-27-2022 Basophils/100 WBC (Bld) 0.3 % 0-1 [facility] Chloride [Moles/Vol] 81 mmol/L 98-107 [facility] Eosinophils/100 WBC (Bld) 2.4 % 0-5 [facility] Glucose [Mass/Vol] 100 mg/dL 74-106 [facility] Comment on above: Fasting Glucose resu lt from 100 to 125 mg/dL suggests IMPAIRED HOMEOSTASIS per A.D.A. criteria. Neutrophils (Bld) [#/Vol] 4.4 10*3/uL 2.0-7.7 [facility] Neutrophils/100 WBC (Bld) 61.4 % 47-70 [facility] Potassium [Moles/Vol] 3.1 mmol/L 3.5-5.1 [facility] Sodium [Moles/Vol] 133 mmol/L 136-145 [facility] WBC (Bld) [#/Vol] 7.2 10*3/uL 4.4-11.0 [facility] Blood erythrocytes count (nu mber/volume)Ordered By: Dr. Woo on 09-27-2022 RBC (Bld) [#/Vol] 4.84 10*6/uL 4.2-5.4 [facility] Blood hemoglobin measurement (mass/volume)Ordered By: Dr. Woo on 09-27-2022 Hemoglobin (Bld) [Mass/Vol] 13.6 g/dL 12.0-15. 0 [facility] Blood lymphocytes/100 leukoc ytesOrdered By: Dr. Woo on 09-27-2022 Lymphocytes/100 WBC (Bld) 23.4 % 19-41 [facility] Blood monocytes/100 leukocyt esOrdered By: Dr. Woo on 09-27-2022 Monocytes/100 WBC (Bld) 12.4 % 0-10 [facility] Blood platelet mean volumeOr dered By: Dr. Woo on 09-27-2022 Platelet mean volume (Bld) [Entitic vol] 9.7 fL 6.2-12.0 [facility] Determination of erythrocyte mean corpuscular volume (MCV)Ordered By: Dr. Woo on 09-27-2022 MCV (RBC) [Entitic vol] 94.4 fL 81-99 [facility] Hematocrit Auto (Bld) [Volum e fraction]Ordered By: Dr. Woo on 09-27-2022 Hematocrit (Bld) [Volume fraction] 45.7 % 37-47 [facility] - Chemistry and C hemistry - challengeOrdered By: Dr. Woo on 09-27-2022 CO2 [Moles/Vol] mmol/L 21.0-32.0 [facility] Urea nitrogen/Creatinine [Mass ratio] 30.8 mg/mg 10-20 [facility] - Hematology and Cell countsOrdered By: Dr. Woo on 09-27-2022 Erythrocyte distribution width (RBC) [Entitic vol] 57.4 fL 35.1-43.9 [facility] Erythrocyte distribution width (RBC) [Ratio] 16.5 % 11.6-14.6 [facility] Immature granulocytes/100 WBC (Bld) 0.100 % 0.0-0.9 [facility] Comment on above: IG% - Immature Granu locytes (promyelocytes, myelocytes and metamyelocytes) > 1% indicates that a LEFT SHIFT is Present. MCH (RBC) [Entitic mass] 28.1 pg 27.0-32.0 [facility] Nucleated RBC/100 WBC (Bld) [Ratio] 0 % 0-5 [facility] - Microbiology an d Antimicrobial susceptibilityOrdered By: Dr. Hall on 09-27-2022 Bacteria identified Cx Nom (Bld) No growth in 5 days. [facility] MCHC Auto (RBC) [Mass/Vol]Or dered By: Dr. Woo on 09-27-2022 MCHC (RBC) [Mass/Vol] 29.8 g/dL 32-36 [facility] No Panel InformationOrdered By: Dr. Woo on 09-27-2022 Estimated Creatinine Clearance Calc 41.76 ml/min [facility] Estimated GFR (MDRD) Amer 111 mL/min >60 [facility] Comment on above: GFR Calc Estimated GFR (MDRD) Non-Af Amer 92 mL/min >60 [facility] Comment on above: Non- GFR Calc Platelets bldOrdered By: Dr. Woo on 09-27-2022 Platelets (Bld) [#/Vol] 287 10*3/uL 150-450 [facility] Serum or plasma calcium juanpablo urement (mass/volume)Ordered By: Dr. Woo on 09-27-2022 Calcium [Mass/Vol] 9.5 mg/dL 8.5-10.1 [facility] Serum or plasma creatinine m easurement (mass/volume)Ordered By: Dr. Woo on 09-27-2022 Creatinine [Mass/Vol] 0.68 mg/dL 0.55-1.02 [facility] Comment on above: The validity of the calculated GFR & GFRAA in patients over 70 years has not been determined. Clinical correlation is essential. Serum or plasma urea nitroge n measurement (mass/volume)Ordered By: Dr. Woo on 09-27-2022 Urea nitrogen [Mass/Vol] 21 mg/dL 7-18 [facility] Thin prep Papanicolaou smear with manual screeningOrdered By: Dr. Woo on 09-27-2022 Thin prep Papanicolaou smear with manual screening TNP [facility] Comment on above: Test not performedCr itical Result(s) Called at: 06:57:56 09/27/2022 by: Eden Adams to Steve. Results read back by same. Basophil percentageOrdered B y: Dr. Woo on 09-26-2022 Basophil percentage 3.9 mg/dL 2.5-4.9 [facility] - Chemistry and C hemistry - challengeOrdered By: Dr. Woo on 09-26-2022 Magnesium [Mass/Vol] 1.9 mg/dL 1.6-2.6 [facility] Laboratory - Chemistry and C hemistry - challengeOrdered By: Dr. Shi on 09-26-2022 Natriuretic peptide B (Bld) [Mass/Vol] 48.0 pg/mL 0-100 [facility] Serum rheumatoid factor dete ctionOrdered By: Dr. Shi on 09-26-2022 Rheumatoid factor Ql (S) < 10.0 IU/mL <15 [facility] Assessment of wrist artery p atency prior to arterial punctureOrdered By: Dr. Woo on 09-25-2022 Arterial patency Wrist artery --pre arterial puncture Positive [facility] Atypical perinuclear antineu trophil cytoplasmic antibodies measurementOrdered By: Dr. Shi on 09-25-2022 Neutrophil cytoplasmic Ab.perinuclear.atypical IF (S) [Titer] <1:20 titer Neg:<1:20 [facility] Comment on above: The atypical pANCA p attern has been observed in asignificant percentage of patients with ulcerative colitis,primary sclerosing cholangitis and autoimmune hepatitis. Base excessOrdered By: Dr. Leonor ceja on 09-25-2022 Base excess Calc (BldV) [Moles/Vol] mmol/L -2-2 [facility] Basophil percentageOrdered B y: Dr. Woo on 09-25-2022 Basophil percentage 57.5 mmol/L 22-26 [facility] Basophils/100 WBC (Bld) 94 % 95-99 [facility] Basophil percentageOrdered B y: Dr. Shi on 09-25-2022 Basophil percentage < 0.2 AI 0.0-0.9 [facility] CO2 (BldA) [Partial pressure ]Ordered By: Dr. Woo on 09-25-2022 CO2 (Bld) [Partial pressure] 79.4 mm[Hg] 35-45 [facility] No Panel InformationOrdered By: Dr. Woo on 09-25-2022 Bld Gas Crit Called To/Read Back By Yes [facility] Blood Gas Liter Flow 3.0 /min [facility] Blood Gas Sample Site L Radial [facility] Blood Gas Specimen Type ART [facility] Blood Gas Total CO2 > 50 mmol/L [facility] Oxygen Delivery Device Cannula [facility] No Panel InformationOrdered By: Dr. Shi on 09-25-2022 Anti-Nuclear Antibody Screen Positive Negative [facility] Centromere B Antibody <0.2 AI 0.0-0.9 [facility] PET HANDLER Antibody 1.1 AI 0.0-0.9 [facility] Oxygen (BldA) [Partial press ure]Ordered By: Dr. Woo on 09-25-2022 Oxygen (Bld) [Partial pressure] 73 mmHG 75-100 [facility] Serum DNA double strand anti body assay (units/volume)Ordered By: Dr. Shi on 09-25-2022 DNA double strand Ab Qn (S) [IU]/mL 0-9 [facility] Comment on above: Negative <5 Equivoca l 5 - 9 Positive >9 Serum Elisa-1 antibody assay (u nits/volume)Ordered By: Dr. Shi on 09-25-2022 Elisa-1 extractable nuclear Ab Qn (S) <0.2 AI 0.0-0.9 [facility] Serum Scl-70 extractable nuc lear antibody assay (units/volume)Ordered By: Dr. Shi on 09-25-2022 SCL-70 extractable nuclear Ab Qn (S) <0.2 AI 0.0-0.9 [facility] Serum Francois extractable nucl ear antibody detectionOrdered By: Dr. Shi on 09-25-2022 Francois extractable nuclear Ab Ql (S) <0.2 AI 0.0-0.9 [facility] Serum classic neutrophil cyt oplasmic antibody assay (units/volume)Ordered By: Dr. Shi on 09-25-2022 Neutrophil cytoplasmic Ab.classic Qn (S) <1:20 titer Neg:<1:20 [facility] Serum cyclic citrullinated p eptide IgG antibody assay (units/volume)Ordered By: Dr. Shi on 09-25-2022 Cyclic citrullinated peptide IgG Qn 11 units 0-19 [facility] Comment on above: Negative <20 Weak po sitive 20 - 39 Moderate positive 40 - 59 Strong positive >59Performed at: [facility] [id number] Director: Zach Augustin PhD, Phone: [phone] Serum perinuclear neutrophil cytoplasmic antibody titer by immunofluorescenceOrdered By: Dr. Shi on 09-25-2022 Neutrophil cytoplasmic Ab.perinuclear IF (S) [Titer] <1:20 titer Neg:<1:20 [facility] Comment on above: The presence of posi tive fluorescence exhibiting P-ANCA orC-ANCA patterns alone is not specific for the diagnosis ofWegener's Granulomatosis (WG) or microscopic polyangiitis.Decisions about treatment should not be based solely onANCA IFA results. The International ANCA Group Consensusrecommends follow up testing of positive sera with both MD-3 and MPO-ANCA enzyme immunoassays. As many as 5% serumsamples are positive only by EIA. Ref. AM J Clin [id number];111:[id number]. Serum procalcitonin measurem entOrdered By: Dr. Shi on 09-25-2022 Procalcitonin [Mass/Vol] 0.10 ng/mL 0.00-0.09 [facility] Comment on above: A procalcitonin (PCT ) level above 2.0 ng/mL on the first day of ICU admission is associated with a high risk for progression to severe sepsis and/or septic shock. A PCT level below 0.5 ng/mL on the first day of ICU admission is associated with a low risk for progression to severe and/or septic shock. Note: Concentrations <0.5 ng/mL do not exclude an infection on account of localized infections (without systemic signs) which can be associated with such low concentrations, or a systemic infection in its initial stages (<6 hours). Furthermore, increased procalcitonin can occur without infection. PCT concentrations between 0.5 and 2.0 ng/mL should be interpreted taking into account the patient's history. It is recommended to retest PCT within 6-24 hours if any concentrations <2 ng/mL are obtained. pH measurementOrdered By: Dr Poppy Woo on 09-25-2022 pH (Unsp spec) 7.47 [pH] 7.35-7.45 [facility] Basophil percentageOrdered B y: Dr. Diamond on 09-22-2022 Bilirubin [Mass/Vol] 0.60 mg/dL 0.20-1.00 [facility] Comment on above: For patients on eltr ombopag therapy, use of Dimension [place] TBIL is not recommended. Cholesterol [Mass/Vol] 77 mg/dL <200 [facility] Comment on above: <200 mg/dL Desirable 200-240 mg/dL Borderline >240 mg/dL High Risk Protein [Mass/Vol] 6.6 g/dL 6.4-8.2 [facility] Triglyceride [Mass/Vol] 66 mg/dL <199 [facility] Comment on above: The drugs N-Acetylcy steine and Metamizole may falsely depress this assay.Serum Triglycerides Reference Interval Normal <150 mg/dL Borderline high 150 - 199 mg/dL High 200 - 499 mg/dL Very High > or = 500 mg/dL Culture, urineOrdered By: Dr Poppy Hall on 09-22-2022 Bacteria identified Cx Nom (U) Mixed Alf [facility] Laboratory - Chemistry and C hemistry - challengeOrdered By: Dr. Diamond on 09-22-2022 ALP [Catalytic activity/Vol] 87 U/L 45-117 [facility] ALT [Catalytic activity/Vol] 23 U/L 13-56 [facility] Globulin (S) [Mass/Vol] 3.9 g/dL 2.2-4.2 [facility] No Panel InformationOrdered By: Dr. Diamond on 09-22-2022 Thyroid Stimulating Hormone (TSH) 0.61 uIU/mL 0.358-3.74 [facility] Serum or plasma albumin juanpablo urement (mass/volume)Ordered By: Dr. Diamond on 09-22-2022 Albumin [Mass/Vol] 2.7 g/dL 3.2-5.0 [facility] Serum or plasma albumin/glob ulin mass ratioOrdered By: Dr. Diamond on 09-22-2022 Albumin/Globulin [Mass ratio] 0.7 {ratio} 0.9-2.4 [facility] Serum or plasma cholesterol in HDL measurement (mass/volume)Ordered By: Dr. Diamond on 09-22-2022 Cholesterol in HDL [Mass/Vol] 25 mg/dL >40 [facility] Comment on above: The drugs N-Acetylcy steine and Metamizole may falsely depress this assay. Reference Range HDL <40 mg/dL Low HDL Cholesterol HDL >or= 60 mg/dL High HDL Cholesterol Serum or plasma cholesterol in VLDL measurement (mass/volume)Ordered By: Dr. Diamond on 09-22-2022 Cholesterol in VLDL [Mass/Vol] 13 mg/dL 5-40 [facility] Serum or plasma low density lipoprotein (LDL) cholesterol measurement (mass/volume)Ordered By: Dr. Diamond on 09-22-2022 Cholesterol in LDL [Mass/Vol] 39 mg/dL 0-130 [facility] Thin prep Papanicolaou smear with manual screeningOrdered By: Dr. Diamond on 09-22-2022 Thin prep Papanicolaou smear with manual screening 12 U/L 15-37 [facility] Absolute lymphocyte countOrd ered By: Dr. Hall on 09-21-2022 Lymphocytes Auto (Unsp spec) [#/Vol] 1.26 10*3/uL 0.83-4.51 [facility] Basophil percentageOrdered B y: Dr. Hall on 09-21-2022 Lactate [Moles/Vol] 3.0 mmol/L 0.4-2.0 [facility] Comment on above: Critical Result(s) C alled at: 22:07:12 09/21/2022 by: Elizabeth BRAVO. Results read back by same. Basophil percentage 0-5 SEEN /hpf 0-5 [facility] Lactate [Moles/Vol] 2.0 mmol/L 0.4-2.0 [facility] Comment on above: Critical Result(s) C alled at: 18:23:38 09/21/2022 by: Elizabeth MC. Results read back by same. Basophils/100 WBC (Bld) 0.4 % 0-1 [facility] Bilirubin [Mass/Vol] 0.60 mg/dL 0.20-1.00 [facility] Comment on above: For patients on eltr ombopag therapy, use of Dimension [place] TBIL is not recommended. Chloride [Moles/Vol] 104 mmol/L 98-107 [facility] Eosinophils/100 WBC (Bld) 0.6 % 0-5 [facility] Glucose [Mass/Vol] 117 mg/dL 74-106 [facility] Comment on above: Fasting Glucose resu lt from 100 to 125 mg/dL suggests IMPAIRED HOMEOSTASIS per A.D.A. criteria. Neutrophils (Bld) [#/Vol] 7.7 10*3/uL 2.0-7.7 [facility] Neutrophils/100 WBC (Bld) 76.9 % 47-70 [facility] Potassium [Moles/Vol] 3.4 mmol/L 3.5-5.1 [facility] Protein [Mass/Vol] 7.6 g/dL 6.4-8.2 [facility] Sodium [Moles/Vol] 139 mmol/L 136-145 [facility] WBC (Bld) [#/Vol] 10.0 10*3/uL 4.4-11.0 [facility] Bilirubin Test strip Ql (U)O rdered By: Dr. Hall on 09-21-2022 Bilirubin Ql (U) Negative Negative [facility] Blood erythrocytes count (nu mber/volume)Ordered By: Dr. Hall on 09-21-2022 RBC (Bld) [#/Vol] 4.77 10*6/uL 4.2-5.4 [facility] Blood hemoglobin measurement (mass/volume)Ordered By: Dr. Hall on 09-21-2022 Hemoglobin (Bld) [Mass/Vol] 13.7 g/dL 12.0-15. 0 [facility] Blood lymphocytes/100 leukoc ytesOrdered By: Dr. Hall on 09-21-2022 Lymphocytes/100 WBC (Bld) 12.7 % 19-41 [facility] Blood monocytes/100 leukocyt esOrdered By: Dr. Hall on 09-21-2022 Monocytes/100 WBC (Bld) 9.1 % 0-10 [facility] Blood platelet mean volumeOr dered By: Dr. Hall on 09-21-2022 Platelet mean volume (Bld) [Entitic vol] 8.9 fL 6.2-12.0 [facility] Culture, urineOrdered By: Do jerry Hall on 09-21-2022 Bacteria identified Cx Nom (U) Mixed Alf [facility] Determination of erythrocyte mean corpuscular volume (MCV)Ordered By: Dr. Hall on 09-21-2022 MCV (RBC) [Entitic vol] 98.5 fL 81-99 [facility] Hematocrit Auto (Bld) [Volum e fraction]Ordered By: Dr. Hall on 09-21-2022 Hematocrit (Bld) [Volume fraction] 47.0 % 37-47 [facility] INR in Blood by Coagulation assayOrdered By: Dr. Hall on 09-21-2022 INR Coag (Bld) [Relative time] 1.2 {INR} [facility] Influenza virus A and B and SARS-CoV-2 (COVID-19) Ag panel - Upper respiratory specimOrdered By: Dr. Hall on 09-21-2022 SARS-CoV-2 (COVID-19) RNA GENA+probe Ql (Resp) [facility] Ketones Test strip Ql (U)Ord ered By: Dr. Hall on 09-21-2022 Ketones Ql (U) Negative Negative [facility] - Chemistry and C hemistry - challengeOrdered By: Dr. Hall on 09-21-2022 ALP [Catalytic activity/Vol] 109 U/L 45-117 [facility] ALT [Catalytic activity/Vol] 27 U/L 13-56 [facility] CO2 [Moles/Vol] 31.0 mmol/L 21.0-32.0 [facility] Globulin (S) [Mass/Vol] 4.5 g/dL 2.2-4.2 [facility] Natriuretic peptide B (Bld) [Mass/Vol] 463.0 pg/mL 0-100 [facility] Urea nitrogen/Creatinine [Mass ratio] 35.6 mg/mg 10-20 [facility] - CoagulationOrde red By: Dr. Hall on 09-21-2022 aPTT Coag (Bld) [Time] 25.1 s 24.1-36.2 [facility] PT Coag (PPP) [Time] 14.6 s 11.7-14.9 [facility] - Hematology and Cell countsOrdered By: Dr. Hall on 09-21-2022 Erythrocyte distribution width (RBC) [Entitic vol] 63.5 fL 35.1-43.9 [facility] Erythrocyte distribution width (RBC) [Ratio] 17.6 % 11.6-14.6 [facility] Immature granulocytes/100 WBC (Bld) 0.300 % 0.0-0.9 [facility] Comment on above: IG% - Immature Granu locytes (promyelocytes, myelocytes and metamyelocytes) > 1% indicates that a LEFT SHIFT is Present. MCH (RBC) [Entitic mass] 28.7 pg 27.0-32.0 [facility] Nucleated RBC/100 WBC (Bld) [Ratio] 0.2 % 0-5 [facility] - Microbiology an d Antimicrobial susceptibilityOrdered By: Dr. Diamond on 09-21-2022 Respiratory pathogens DNA and RNA 12b panel GENA+probe (Unsp spec) [facility] - Microbiology an d Antimicrobial susceptibilityOrdered By: Heri Hall on 09-21-2022 Bacteria identified Cx Nom (Bld) No growth in 5 days. [facility] [Mass/Vol]Or dered By: Dr. Hall on 09-21-2022 MCHC (RBC) [Mass/Vol] 29.1 g/dL 32-36 [facility] Mucus LM Ql (Urine sed)Order ed By: Dr. Hall on 09-21-2022 Mucus Ql (Urine sed) 0 SEEN /hpf [facility] Nitrite Test strip Ql (U)Ord ered By: Dr. Hall on 09-21-2022 Nitrite Ql (U) Negative Negative [facility] No Panel InformationOrdered By: Dr. Hall on 09-21-2022 Estimated Creatinine Clearance Calc 48.00 ml/min [facility] Estimated GFR (MDRD) Amer 84 mL/min >60 [facility] Comment on above: GFR Calc Estimated GFR (MDRD) Non-Af Amer 69 mL/min >60 [facility] Comment on above: Non- GFR Calc Troponin I High Sensitivity 38 pg/mL 3.0-54.0 [facility] Comment on above: Please Note: New Sparkle t Units and Gender Specific Reference Ranges. For more information see Policy Stat Procedure [place] High Sensitivity Troponin (TNIH) and attachments. Platelets bldOrdered By: Dr. Hall on 09-21-2022 Platelets (Bld) [#/Vol] 407 10*3/uL 150-450 [facility] Protein Test strip Ql (U)Ord ered By: Dr. Hall on 09-21-2022 Protein Ql (U) 100 mg/dl Negative [facility] Serum or plasma albumin juanpablo urement (mass/volume)Ordered By: Dr. Hall on 09-21-2022 Albumin [Mass/Vol] 3.1 g/dL 3.2-5.0 [facility] Serum or plasma albumin/glob ulin mass ratioOrdered By: Dr. Hall on 09-21-2022 Albumin/Globulin [Mass ratio] 0.7 {ratio} 0.9-2.4 [facility] Serum or plasma calcium juanpablo urement (mass/volume)Ordered By: Dr. Hall on 09-21-2022 Calcium [Mass/Vol] 9.8 mg/dL 8.5-10.1 [facility] Serum or plasma creatinine m easurement (mass/volume)Ordered By: Dr. Hall on 09-21-2022 Creatinine [Mass/Vol] 0.87 mg/dL 0.55-1.02 [facility] Comment on above: The validity of the calculated GFR & GFRAA in patients over 70 years has not been determined. Clinical correlation is essential. Serum or plasma urea nitroge n measurement (mass/volume)Ordered By: Dr. Hall on 09-21-2022 Urea nitrogen [Mass/Vol] 31 mg/dL 7-18 [facility] Squamous epithelial cells de tection in urine sediment by light microscopyOrdered By: Dr. Hall on 09-21-2022 Epithelial cells.squamous LM Ql (Urine sed) 0-5 SEEN /hpf 5-10 [facility] Thin prep Papanicolaou smear with manual screeningOrdered By: Dr. Hall on 09-21-2022 Thin prep Papanicolaou smear with manual screening 14 U/L 15-37 [facility] Thin prep Papanicolaou smear with manual screening 4 5-15 [facility] Urine blood detectionOrdered By: Dr. Hall on 09-21-2022 RBC Ql (U) 10 /ul Negative [facility] RBC Ql (U) 0 SEEN /hpf 0-5 [facility] Urine clarityOrdered By: Dr. Hall on 09-21-2022 Clarity (U) Clear Clear [facility] Urine color determinationOrd ered By: Dr. Hall on 09-21-2022 Color (U) Yellow Yellow [facility] Urine glucose detectionOrder ed By: Dr. Hall on 09-21-2022 Glucose Ql (U) Normal mg/dl Normal [facility] Urine leukocyte esterase det ection by dipstickOrdered By: Dr. Hall on 09-21-2022 Leukocyte esterase Test strip Ql (U) 100 /ul Negative [facility] Urine pHOrdered By: Dr. Bryan miles on 09-21-2022 pH (U) 6.0 [pH] 5.0 - 8.0 [facility] Urine sediment bacteria coun t by microscopy (number/high power field)Ordered By: Dr. Hall on 09-21-2022 Bacteria LM.HPF (Urine sed) [#/Area] 0 /[HPF] None Seen [facility] Urine sediment renal epithel ial cell count by microscopy (number/high power field)Ordered By: Dr. Hall on 09-21-2022 Epithelial cells.renal LM.HPF (Urine sed) [#/Area] 0 /[HPF] 0-5 [facility] Urine specific gravity measu rementOrdered By: Dr. Hall on 09-21-2022 Specific gravity (U) [Rel density] 1.015 1.002-1.030 [facility] Urobilinogen Auto test strip Ql (U)Ordered By: Dr. Hall on 09-21-2022 Urobilinogen Ql (U) 1 mg/dl Normal [facility] Whole blood hemoglobin A1c/t otal hemoglobin ratio (mass fraction)Ordered By: Dr. Diamond on 09-21-2022 HbA1c (Bld) [Mass fraction] 5.4 % 3.8-5.6 [facility] Comment on above: Normal < 5.7 % Predi abetic 5.7 - 6.4 % Diabetic >or= 6.5 % Please note range changes. Absolute lymphocyte countOrd ered By: Dr. Del Rosario on 08-01-2022 Lymphocytes Auto (Unsp spec) [#/Vol] 2.74 10*3/uL 0.83-4.51 [facility] Basophil percentageOrdered B y: Dr. Del Rosario on 08-01-2022 Basophils/100 WBC (Bld) 0.7 % 0-1 [facility] Chloride [Moles/Vol] 101 mmol/L 98-107 [facility] Eosinophils/100 WBC (Bld) 3.0 % 0-5 [facility] Glucose [Mass/Vol] 102 mg/dL 74-106 [facility] Comment on above: Fasting Glucose resu lt from 100 to 125 mg/dL suggests IMPAIRED HOMEOSTASIS per A.D.A. criteria. Neutrophils (Bld) [#/Vol] 3.8 10*3/uL 2.0-7.7 [facility] Neutrophils/100 WBC (Bld) 51.8 % 47-70 [facility] Potassium [Moles/Vol] 3.9 mmol/L 3.5-5.1 [facility] Sodium [Moles/Vol] 141 mmol/L 136-145 [facility] WBC (Bld) [#/Vol] 7.4 10*3/uL 4.4-11.0 [facility] Blood erythrocytes count (nu mber/volume)Ordered By: Dr. Del Rosario on 08-01-2022 RBC (Bld) [#/Vol] 4.79 10*6/uL 4.2-5.4 [facility] Blood hemoglobin measurement (mass/volume)Ordered By: Dr. Del Rosario on 08-01-2022 Hemoglobin (Bld) [Mass/Vol] 14.4 g/dL 12.0-15. 0 [facility] Blood lymphocytes/100 leukoc ytesOrdered By: Dr. Del Rosario on 08-01-2022 Lymphocytes/100 WBC (Bld) 37.3 % 19-41 [facility] Blood monocytes/100 leukocyt esOrdered By: Dr. Del Rosario on 08-01-2022 Monocytes/100 WBC (Bld) 7.1 % 0-10 [facility] Blood platelet mean volumeOr dered By: Dr. Del Rosario on 08-01-2022 Platelet mean volume (Bld) [Entitic vol] 9.3 fL 6.2-12.0 [facility] Determination of erythrocyte mean corpuscular volume (MCV)Ordered By: Dr. Del Rosario on 08-01-2022 MCV (RBC) [Entitic vol] 96.0 fL 81-99 [facility] Hematocrit Auto (Bld) [Volum e fraction]Ordered By: Dr. Del Rosario on 08-01-2022 Hematocrit (Bld) [Volume fraction] 46.0 % 37-47 [facility] - Chemistry and C hemistry - challengeOrdered By: Dr. Del Rosario on 08-01-2022 CO2 [Moles/Vol] 34.0 mmol/L 21.0-32.0 [facility] Urea nitrogen/Creatinine [Mass ratio] 22.6 mg/mg 10-20 [facility] - Hematology and Cell countsOrdered By: Dr. Del Rosario on 08-01-2022 Erythrocyte distribution width (RBC) [Entitic vol] 48.6 fL 35.1-43.9 [facility] Erythrocyte distribution width (RBC) [Ratio] 13.5 % 11.6-14.6 [facility] Immature granulocytes/100 WBC (Bld) 0.100 % 0.0-0.9 [facility] Comment on above: IG% - Immature Granu locytes (promyelocytes, myelocytes and metamyelocytes) > 1% indicates that a LEFT SHIFT is Present. MCH (RBC) [Entitic mass] 30.1 pg 27.0-32.0 [facility] Nucleated RBC/100 WBC (Bld) [Ratio] 0 % 0-5 [facility] MCHC Auto (RBC) [Mass/Vol]Or dered By: Dr. Del Rosario on 08-01-2022 MCHC (RBC) [Mass/Vol] 31.3 g/dL 32-36 [facility] No Panel InformationOrdered By: Dr. Del Rosario on 08-01-2022 Estimated GFR (MDRD) Amer 106 mL/min >60 [facility] Comment on above: GFR Calc Estimated GFR (MDRD) Non-Af Amer 88 mL/min >60 [facility] Comment on above: Non- GFR Calc Platelets bldOrdered By: Dr. Del Rosario on 08-01-2022 Platelets (Bld) [#/Vol] 344 10*3/uL 150-450 [facility] Serum or plasma calcium juanpablo urement (mass/volume)Ordered By: Dr. Del Rosario on 08-01-2022 Calcium [Mass/Vol] 10.5 mg/dL 8.5-10.1 [facility] Serum or plasma creatinine m easurement (mass/volume)Ordered By: Dr. Del Rosario on 08-01-2022 Creatinine [Mass/Vol] 0.71 mg/dL 0.55-1.02 [facility] Comment on above: The validity of the calculated GFR & GFRAA in patients over 70 years has not been determined. Clinical correlation is essential. Serum or plasma urea nitroge n measurement (mass/volume)Ordered By: Dr. Del Rosario on 08-01-2022 Urea nitrogen [Mass/Vol] 16 mg/dL 7-18 [facility] Thin prep Papanicolaou smear with manual screeningOrdered By: Dr. Del Rosario on 08-01-2022 Thin prep Papanicolaou smear with manual screening 6 5-15 [facility] Absolute lymphocyte countOrd ered By: Dr. Henderson on 04-07-2022 Lymphocytes Auto (Unsp spec) [#/Vol] 2.15 10*3/uL 0.83-4.51 [facility] Basophil percentageOrdered B y: Dr. Henderson on 04-07-2022 Basophils/100 WBC (Bld) 0.7 % 0-1 [facility] Chloride [Moles/Vol] 101 mmol/L 98-107 [facility] Eosinophils/100 WBC (Bld) 2.6 % 0-5 [facility] Glucose [Mass/Vol] 113 mg/dL 74-106 [facility] Comment on above: Fasting Glucose resu lt from 100 to 125 mg/dL suggests IMPAIRED HOMEOSTASIS per A.D.A. criteria. Neutrophils (Bld) [#/Vol] 4.3 10*3/uL 2.0-7.7 [facility] Neutrophils/100 WBC (Bld) 59.1 % 47-70 [facility] Potassium [Moles/Vol] 3.9 mmol/L 3.5-5.1 [facility] Sodium [Moles/Vol] 140 mmol/L 136-145 [facility] WBC (Bld) [#/Vol] 7.2 10*3/uL 4.4-11.0 [facility] Blood erythrocytes count (nu mber/volume)Ordered By: Dr. Henderson on 04-07-2022 RBC (Bld) [#/Vol] 4.94 10*6/uL 4.2-5.4 [facility] Blood hemoglobin measurement (mass/volume)Ordered By: Dr. Henderson on 04-07-2022 Hemoglobin (Bld) [Mass/Vol] 14.5 g/dL 12.0-15. 0 [facility] Blood lymphocytes/100 leukoc ytesOrdered By: Dr. Henderson on 04-07-2022 Lymphocytes/100 WBC (Bld) 29.9 % 19-41 [facility] Blood monocytes/100 leukocyt esOrdered By: Dr. Henderson on 04-07-2022 Monocytes/100 WBC (Bld) 7.4 % 0-10 [facility] Blood platelet mean volumeOr dered By: Dr. Henderson on 04-07-2022 Platelet mean volume (Bld) [Entitic vol] 9.6 fL 6.2-12.0 [facility] Determination of erythrocyte mean corpuscular volume (MCV)Ordered By: Dr. Henderson on 04-07-2022 MCV (RBC) [Entitic vol] 93.7 fL 81-99 [facility] Hematocrit Auto (Bld) [Volum e fraction]Ordered By: Dr. Henderson on 04-07-2022 Hematocrit (Bld) [Volume fraction] 46.3 % 37-47 [facility] - Chemistry and C hemistry - challengeOrdered By: Dr. Henderson on 04-07-2022 CO2 [Moles/Vol] 32.0 mmol/L 21.0-32.0 [facility] Free T4 [Mass/Vol] 1.29 ng/dL 0.76-1.46 [facility] Urea nitrogen/Creatinine [Mass ratio] 28.5 mg/mg 10-20 [facility] - Hematology and Cell countsOrdered By: Dr. Henderson on 04-07-2022 Erythrocyte distribution width (RBC) [Entitic vol] 46.7 fL 35.1-43.9 [facility] Erythrocyte distribution width (RBC) [Ratio] 13.6 % 11.6-14.6 [facility] Immature granulocytes/100 WBC (Bld) 0.300 % 0.0-0.9 [facility] Comment on above: IG% - Immature Granu locytes (promyelocytes, myelocytes and metamyelocytes) > 1% indicates that a LEFT SHIFT is Present. MCH (RBC) [Entitic mass] 29.4 pg 27.0-32.0 [facility] Nucleated RBC/100 WBC (Bld) [Ratio] 0 % 0-5 [facility] MCHC Auto (RBC) [Mass/Vol]Or dered By: Dr. Henderson on 04-07-2022 MCHC (RBC) [Mass/Vol] 31.3 g/dL 32-36 [facility] No Panel InformationOrdered By: Dr. Henderson on 04-07-2022 Estimated GFR (MDRD) Amer 101 mL/min >60 [facility] Comment on above: GFR Calc Estimated GFR (MDRD) Non-Af Amer 84 mL/min >60 [facility] Comment on above: Non- GFR Calc Thyroid Stimulating Hormone (TSH) 0.86 uIU/mL 0.358-3.74 [facility] Platelets bldOrdered By: Dr. Henderson on 04-07-2022 Platelets (Bld) [#/Vol] 327 10*3/uL 150-450 [facility] Serum or plasma calcium juanpablo urement (mass/volume)Ordered By: Dr. Henderson on 04-07-2022 Calcium [Mass/Vol] 10.3 mg/dL 8.5-10.1 [facility] Serum or plasma creatinine m easurement (mass/volume)Ordered By: Dr. Henderson on 04-07-2022 Creatinine [Mass/Vol] 0.74 mg/dL 0.55-1.02 [facility] Comment on above: The validity of the calculated GFR & GFRAA in patients over 70 years has not been determined. Clinical correlation is essential. Serum or plasma urea nitroge n measurement (mass/volume)Ordered By: Dr. Henderson on 04-07-2022 Urea nitrogen [Mass/Vol] 21 mg/dL 7-18 [facility] Thin prep Papanicolaou smear with manual screeningOrdered By: Dr. 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 Hoda Del Rosario MD Work Phone: [facility] 10-29-2024 08:33-0400 Body weight 62.[address] Hoda Del Rosario MD Work Phone: [facility] 10-29-2024 08:33-0400 Diastolic blood pressure 69 mm[Hg] Dr. Hoda Del Rosario MD Work Phone: [facility] 10-29-2024 08:33-0400 Heart rate 98 /min Dr. Hoda Del Rosario MD Work Phone: [facility] 10-29-2024 08:33-0400 Inhaled oxygen flow rate 6 L/min Dr. Hoda Del Rosario MD Work Phone: [facility] 10-29-2024 08:33-0400 Respiratory rate 20 /min Dr. Hoda Del Rosario MD Work Phone: [facility] 10-29-2024 08:33-0400 SaO2% (BldA) [Mass fraction] 98 % Dr. Hoda Del Rosario MD Work Phone: [facility] 10-29-2024 08:33-0400 Systolic blood pressure 126 mm[Hg] Dr. Hoda Del Rosario MD Work Phone: [facility] 10-26-2024 00:41-0400 Body mass index (BMI) [Ratio] 26.8 kg/m2 Dr. Hoda Del Rosario MD Work Phone: [facility] 10-26-2024 00:41-0400 Body weight 64.[address] Hoda Del Rosario MD Work Phone: [facility] 09-30-2024 07:50-0400 Body height 154.[address] Hoda Del Rosario MD Work Phone: [facility] 09-30-2024 07:50-0400 Body mass index (BMI) [Ratio] 26.8 kg/m2 Dr. Hoda Del Rosario MD Work Phone: [facility] 09-30-2024 07:50-0400 Body weight 64.[address] Hoda Del Rosario MD Work Phone: [facility] 09-26-2024 14:25-0400 Body height 157.5 cm Amol Godwin MD Work Phone: [facility] 09-26-2024 14:25-0400 Body mass index (BMI) [Ratio] 26.89 kg/m2 Amol Godwin MD Work Phone: [facility] 09-26-2024 14:25-0400 Body temperature 97.81 [degF] Amol Godwin MD Work Phone: [facility] 09-26-2024 14:25-0400 Body weight 66.68 kg Amol Godwin MD Work Phone: [facility] 09-26-2024 14:25-0400 Diastolic blood pressure 53 mm[Hg] Amol Godwin MD Work Phone: [facility] 09-26-2024 14:25-0400 Heart rate 110 /min Amol Godwin MD Work Phone: [facility] 09-26-2024 14:25-0400 Respiratory rate 16 /min Amol Godwin MD Work Phone: [facility] 09-26-2024 14:25-0400 SaO2% (BldA) [Mass fraction] 59 % Amol Godwin MD Work Phone: [facility] 09-26-2024 14:25-0400 Systolic blood pressure 136 mm[Hg] Amol Godwin MD Work Phone: [facility] 09-04-2024 11:13-0400 Body mass index (BMI) [Ratio] 29.5 kg/m2 Dr. Hoda Del Rosario MD Work Phone: [facility] 09-04-2024 11:12-0400 Body height 154.[address] Hoda Del Rosario MD Work Phone: [facility] 09-04-2024 11:12-0400 Body weight 70.[address] Hoda Del Rosario MD Work Phone: [facility] 09-04-2024 10:23-0400 Diastolic blood pressure 68 mm[Hg] Dr. Hoda Del Rosario MD Work Phone: [facility] 09-04-2024 10:23-0400 Heart rate 92 /min Dr. Hoda Del Rosario MD Work Phone: [facility] 09-04-2024 10:23-0400 SaO2% (BldA) [Mass fraction] 92 % Dr. Hoda Del Rosario MD Work Phone: [facility] 09-04-2024 10:23-0400 Systolic blood pressure 134 mm[Hg] Dr. 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 Hoda Del Rosario MD Work Phone: [facility] 07-06-2024 13:41-0500 Diastolic blood pressure 54 mm[Hg] Dr. Hoda Del Rosario MD Work Phone: [facility] 07-06-2024 13:41-0500 Heart rate 98 /min Dr. Hoda Del Rosario MD Work Phone: [facility] 07-06-2024 13:41-0500 Inhaled oxygen flow rate 4 L/min Dr. Hoda Del Rosario MD Work Phone: [facility] 07-06-2024 13:41-0500 Respiratory rate 20 /min Dr. Hoda Del Rosario MD Work Phone: [facility] 07-06-2024 13:41-0500 SaO2% (BldA) [Mass fraction] 97 % Dr. Hoda Del Rosario MD Work Phone: [facility] 07-06-2024 13:41-0500 Systolic blood pressure 146 mm[Hg] Dr. Hoda Del Rosario MD Work Phone: [facility] 07-06-2024 04:58-0500 Body mass index (BMI) [Ratio] 26.2 kg/m2 Dr. Hoda Del Rosario MD Work Phone: [facility] 07-06-2024 04:58-0500 Body weight 62.[address] Hoda Del Rosario MD Work Phone: [facility] 07-03-2024 10:40-0500 Body height 154.[address] Hoda Del Rosario MD Work Phone: [facility] 06-29-2024 07:00-0500 Inhaled oxygen concentration 50 % Dr. Hoda Del Rosario MD Work Phone: [facility] 06-03-2024 12:42-0500 Body height 154.9 cm Salvador Marin MD Work Phone: [facility] 06-03-2024 12:42-0500 Body mass index (BMI) [Ratio] 27.78 kg/m2 Salvador Marin MD Work Phone: [facility] 06-03-2024 12:42-0500 Body temperature 98.6 [degF] Salvador Marin MD Work Phone: [facility] 06-03-2024 12:42-0500 Body weight 66.68 kg Salvador Marin MD Work Phone: [facility] 06-03-2024 12:42-0500 Diastolic blood pressure 65 mm[Hg] Salvador Marin MD Work Phone: [facility] 06-03-2024 12:42-0500 Heart rate 100 /min Salvador Marin MD Work Phone: [facility] 06-03-2024 12:42-0500 Respiratory rate 18 /min Salvador Marin MD Work Phone: [facility] 06-03-2024 12:42-0500 SaO2% (BldA) [Mass fraction] 92 % Salvador Marin MD Work Phone: [facility] Comment on above: 4 litter 06-03-2024 12:42-0500 Systolic blood pressure 155 mm[Hg] Salvador Marin MD Work Phone: [facility] 04-30-2024 13:08-0500 Body mass index (BMI) [Ratio] 29.2 kg/m2 Dr. Hoda Del Rosario MD Work Phone: [facility] 04-30-2024 13:08-0500 Body weight 70.[address] Hoda Del Rosario MD Work Phone: [facility] 04-30-2024 13:08-0500 Diastolic blood pressure 77 mm[Hg] Dr. Hoda Del Rosario MD Work Phone: [facility] 04-30-2024 13:08-0500 Heart rate 98 /min Dr. Hoda Del Rosario MD Work Phone: [facility] 04-30-2024 13:08-0500 Respiratory rate 20 /min Dr. Hoda Del Rosario MD Work Phone: [facility] 04-30-2024 13:08-0500 SaO2% (BldA) [Mass fraction] 89 % Dr. Hoda Del Rosario MD Work Phone: [facility] 04-30-2024 13:08-0500 Systolic blood pressure 140 mm[Hg] Dr. Hoda Del Rosario MD Work Phone: [facility] 04-29-2024 13:27-0500 Body mass index (BMI) [Ratio] 29.85 kg/m2 Bassem Case APRN.[employer] Work Phone: [facility] 04-29-2024 13:27-0500 Body weight 71.67 kg Bassem Case APRN.[employer] Work Phone: [facility] 04-29-2024 13:27-0500 Diastolic blood pressure 68 mm[Hg] Bassem Case APRN.[employer] Work Phone: [facility] 04-29-2024 13:27-0500 Heart rate 91 /min Bassem Case APRN.[employer] Work Phone: [facility] 04-29-2024 13:27-0500 SaO2% (BldA) [Mass fraction] 96 % Bassem Hudock POWERHOUSE MECHANIC APPRENTICE.[employer] Work Phone: [facility] 04-29-2024 13:27-0500 Systolic blood pressure 148 mm[Hg] Bassem Case APRN.[employer] Work Phone: [facility] 04-21-2024 13:07-0500 Body height 154.9 cm Heri Tabor MD Work Phone: [facility] 04-21-2024 13:07-0500 Body mass index (BMI) [Ratio] 30.03 kg/m2 Heri Tabor MD Work Phone: [facility] 04-21-2024 13:07-0500 Body temperature 97.81 [degF] Heri Tabor MD Work Phone: [facility] 04-21-2024 13:07-0500 Body weight 72.1 kg Heri Tabor MD Work Phone: [facility] 04-21-2024 13:07-0500 Diastolic blood pressure 70 mm[Hg] Heri Tabor MD Work Phone: [facility] 04-21-2024 13:07-0500 Heart rate 96 /min Heri Tabor MD Work Phone: [facility] 04-21-2024 13:07-0500 Respiratory rate 24 /min Heri Tabor MD Work Phone: [facility] 04-21-2024 13:07-0500 SaO2% (BldA) [Mass fraction] 92 % Heri Tabor MD Work Phone: [facility] 04-21-2024 13:07-0500 Systolic blood pressure 170 mm[Hg] Heri Tabor MD Work Phone: [facility] 04-09-2024 14:12-0500 Body height 156.2 cm Pulm Wstr Work Phone: [facility] 04-09-2024 14:12-0500 Body mass index (BMI) [Ratio] 29.26 kg/m2 Pulm Wstr Work Phone: [facility] 04-09-2024 14:12-0500 Body weight 71.4 kg Pulm Wstr Work Phone: [facility] 04-09-2024 14:12-0500 Diastolic blood pressure 80 mm[Hg] Pulm Wstr Work Phone: [facility] 04-09-2024 14:12-0500 Systolic blood pressure 180 mm[Hg] Pulm Wstr Work Phone: [facility] 02-25-2024 15:29-0400 Diastolic blood pressure 93 mm[Hg] Jason Seabold POWERHOUSE MECHANIC APPRENTICE.[employer] Work Phone: [facility] 02-25-2024 15:29-0400 Heart rate 98 /min Jason Seabold POWERHOUSE MECHANIC APPRENTICE.[employer] Work Phone: [facility] 02-25-2024 15:29-0400 SaO2% (BldA) [Mass fraction] 91 % Jason Seabold POWERHOUSE MECHANIC APPRENTICE.[employer] Work Phone: [facility] Comment on above: o2 set on 3L 02-25-2024 15:29-0400 Systolic blood pressure 162 mm[Hg] Jason Seabold POWERHOUSE MECHANIC APPRENTICE.[employer] Work Phone: [facility] 02-25-2024 14:15-0400 Body height 156.2 cm Jason Seabold POWERHOUSE MECHANIC APPRENTICE.[employer] Work Phone: [facility] 02-25-2024 14:15-0400 Body mass index (BMI) [Ratio] 29.48 kg/m2 Jason Seabold POWERHOUSE MECHANIC APPRENTICE.[employer] Work Phone: [facility] 02-25-2024 14:15-0400 Body temperature 97.7 [degF] Jason Seabold POWERHOUSE MECHANIC APPRENTICE.[employer] Work Phone: [facility] 02-25-2024 14:15-0400 Body weight 71.94 kg Jason Seabold POWERHOUSE MECHANIC APPRENTICE.[employer] Work Phone: [facility] 01-08-2024 10:55-0400 Body mass index (BMI) [Ratio] 27.98 kg/m2 Bassem Case POWERHOUSE MECHANIC APPRENTICE.[employer] Work Phone: [facility] 01-08-2024 10:55-0400 Body weight 69.4 kg Bassem Hudock POWERHOUSE MECHANIC APPRENTICE.[employer] Work Phone: [facility] 01-08-2024 10:55-0400 Diastolic blood pressure 86 mm[Hg] Bassem Hudock POWERHOUSE MECHANIC APPRENTICE.[employer] Work Phone: [facility] 01-08-2024 10:55-0400 Heart rate 104 /min Bassem Hudock POWERHOUSE MECHANIC APPRENTICE.[employer] Work Phone: [facility] 01-08-2024 10:55-0400 Respiratory rate 30 /min Bassem Hudock POWERHOUSE MECHANIC APPRENTICE.[employer] Work Phone: [facility] 01-08-2024 10:55-0400 SaO2% (BldA) [Mass fraction] 83 % Bassem Karieock POWERHOUSE MECHANIC APPRENTICE.[employer] Work Phone: [facility] 01-08-2024 10:55-0400 Systolic blood pressure 170 mm[Hg] Bassem Hudock POWERHOUSE MECHANIC APPRENTICE.[employer] Work Phone: [facility] 11-15-2023 11:00-0400 Body mass index (BMI) [Ratio] 28.9 kg/m2 Bassem Hudock POWERHOUSE MECHANIC APPRENTICE.[employer] Work Phone: [facility] 11-15-2023 11:00-0400 Body weight 71.67 kg Bassem Karieock POWERHOUSE MECHANIC APPRENTICE.[employer] Work Phone: [facility] 11-15-2023 11:00-0400 Diastolic blood pressure 76 mm[Hg] Bassem Hudock POWERHOUSE MECHANIC APPRENTICE.[employer] Work Phone: [facility] 11-15-2023 11:00-0400 Heart rate 92 /min Bassem Hudock POWERHOUSE MECHANIC APPRENTICE.[employer] Work Phone: [facility] 11-15-2023 11:00-0400 Respiratory rate 22 /min Bassem Hudock POWERHOUSE MECHANIC APPRENTICE.[employer] Work Phone: [facility] 11-15-2023 11:00-0400 SaO2% (BldA) [Mass fraction] 98 % Bassem Hudock POWERHOUSE MECHANIC APPRENTICE.[employer] Work Phone: [facility] 11-15-2023 11:00-0400 Systolic blood pressure 156 mm[Hg] Bassem Tiwariorion WILLS.[employer] Work Phone: [facility] 10-24-2023 14:03-0400 Body height 157.5 cm Amol Godwin MD Work Phone: [facility] 10-24-2023 14:03-0400 Body mass index (BMI) [Ratio] 28.28 kg/m2 Amol Godwin MD Work Phone: [facility] 10-24-2023 14:03-0400 Body temperature 98.01 [degF] Amol Godwin MD Work Phone: [facility] 10-24-2023 14:03-0400 Body weight 70.13 kg Amol Godwin MD Work Phone: [facility] 10-24-2023 14:03-0400 Diastolic blood pressure 77 mm[Hg] Amol Godwin MD Work Phone: [facility] 10-24-2023 14:03-0400 Heart rate 94 /min Amol Godwin MD Work Phone: [facility] 10-24-2023 14:03-0400 Respiratory rate 18 /min Amol Godwin MD Work Phone: [facility] 10-24-2023 14:03-0400 SaO2% (BldA) [Mass fraction] 92 % Amol Godwin MD Work Phone: [facility] 10-24-2023 14:03-0400 Systolic blood pressure 159 mm[Hg] Amol Godwin MD Work Phone: [facility] 10-02-2023 14:15-0400 Body height 154.9 cm Arie Lee MD Work Phone: [facility] 10-02-2023 14:15-0400 Body mass index (BMI) [Ratio] 30.04 kg/m2 Arie Lee MD Work Phone: [facility] 10-02-2023 14:15-0400 Body temperature 97.3 [degF] Arie eLe MD Work Phone: [facility] 10-02-2023 14:15-0400 Body weight 72.12 kg Arie Lee MD Work Phone: [facility] 10-02-2023 14:15-0400 Respiratory rate 20 /min Arie Lee MD Work Phone: [facility] 07-25-2023 13:27-0500 Body height 154.[address] Hoda Del Rosario Work Phone: [facility] 07-25-2023 13:27-0500 Body weight 70.[address] Hoda Del Rosario Work Phone: [facility] 07-25-2023 13:27-0500 Heart rate 107 /min Dr. Hoda Del Rosario Work Phone: [facility] 07-25-2023 13:27-0500 Inhaled oxygen flow rate 3 L/min Dr. Hoda Del Rosario Work Phone: [facility] 07-25-2023 13:27-0500 SaO2% (BldA) [Mass fraction] 93 % Dr. Hoda Del Rosario Work Phone: [facility] 05-09-2023 13:53-0500 Body height 157.[address] Hoda Del Rosario Work Phone: [facility] 05-09-2023 13:53-0500 Body mass index (BMI) [Ratio] 28.1 kg/m2 Dr. Hoda Del Rosario Work Phone: [facility] 05-09-2023 13:53-0500 Body weight 69.[address] Hoda Del Rosario Work Phone: [facility] 05-09-2023 13:53-0500 Diastolic blood pressure 75 mm[Hg] Dr. Hoda Del Rosario Work Phone: [facility] 05-09-2023 13:53-0500 Heart rate 93 /min Dr. Hoda Del Rosario Work Phone: [facility] 05-09-2023 13:53-0500 Respiratory rate 18 /min Dr. Hoda Del Rosario Work Phone: [facility] 05-09-2023 13:53-0500 Systolic blood pressure 173 mm[Hg] Dr. Hoda Del Rosario Work Phone: [facility] 05-07-2023 06:14-0500 Body mass index (BMI) [Ratio] 29.1 kg/m2 Dr. Hoda Del Rosario Work Phone: [facility] 05-07-2023 06:14-0500 Body temperature 97.2 [degF] Dr. Hoda Del Rosario Work Phone: [facility] 05-07-2023 06:14-0500 Body weight 72.[address] Hoda Del Rosario Work Phone: [facility] 05-07-2023 06:14-0500 Diastolic blood pressure 75 mm[Hg] Dr. Hoda Del Rosario Work Phone: [facility] 05-07-2023 06:14-0500 Heart rate 116 /min Dr. Hoda Del Rosario Work Phone: [facility] 05-07-2023 06:14-0500 Inhaled oxygen flow rate 2 L/min Dr. Hoda Del Rosario Work Phone: [facility] 05-07-2023 06:14-0500 Respiratory rate 24 /min Dr. Hoda Del Rosario Work Phone: [facility] 05-07-2023 06:14-0500 SaO2% (BldA) [Mass fraction] 92 % Dr. Hoda Del Rosario Work Phone: [phone] [place] [address] 05-07-2023 06:14-0500 Systolic blood pressure 145 mm[Hg] Dr. Hoda Del Rosario Work Phone: [facility] 04-16-2023 08:40-0500 Body height 157.[address] Hoda Del Rosario Work Phone: [facility] 04-16-2023 08:40-0500 Body weight 70.[address] Hoda Del Rosario Work Phone: [facility] 03-20-2023 08:32-0400 Body mass index (BMI) [Ratio] 28.3 kg/m2 Dr. Hoda Del Rosario Work Phone: [phone] [place] [address] 02-05-2023 10:20-0400 Body height 157.[address] Hoda Del Rosario Work Phone: [facility] 02-05-2023 10:20-0400 Body mass index (BMI) [Ratio] 28.3 kg/m2 Dr. Hoda Del Rosario Work Phone: [facility] 02-05-2023 10:20-0400 Body weight 70.[address] Hoda Del Rosario Work Phone: [facility] 02-05-2023 10:20-0400 Diastolic blood pressure 80 mm[Hg] Dr. Hoda Del Rosario Work Phone: [facility] 02-05-2023 10:20-0400 Heart rate 106 /min Dr. Hoda Del Rosario Work Phone: [facility] 02-05-2023 10:20-0400 Inhaled oxygen flow rate 2 L/min Dr. Hoda Del Rosario Work Phone: [facility] 02-05-2023 10:20-0400 Respiratory rate 18 /min Dr. Hoda Del Rosario Work Phone: [facility] 02-05-2023 10:20-0400 SaO2% (BldA) [Mass fraction] 90 % Dr. Hoda Del Rosario Work Phone: [facility] 02-05-2023 10:20-0400 Systolic blood pressure 144 mm[Hg] Dr. Hoda Del Rosario Work Phone: [facility] 01-09-2023 09:38-0400 Body temperature 99.6 [degF] Dr. Hoda Del Rosario Work Phone: [facility] 01-09-2023 09:38-0400 Diastolic blood pressure 68 mm[Hg] Dr. Hoda Del Rosario Work Phone: [facility] 01-09-2023 09:38-0400 Heart rate 95 /min Dr. Hoda Del Rosario Work Phone: [facility] 01-09-2023 09:38-0400 Inhaled oxygen flow rate 3 L/min Dr. Hoda Del Rosario Work Phone: [facility] 01-09-2023 09:38-0400 Respiratory rate 22 /min Dr. Hoda Del Rosario Work Phone: [facility] 01-09-2023 09:38-0400 SaO2% (BldA) [Mass fraction] 100 % Dr. Hoda Del Rosario Work Phone: [facility] 01-09-2023 09:38-0400 Systolic blood pressure 125 mm[Hg] Dr. Hoda Del Rosario Work Phone: [facility] 01-09-2023 08:28-0400 Body height 157.[address] Hoda Del Rosario Work Phone: [facility] 01-09-2023 08:28-0400 Body mass index (BMI) [Ratio] 28 kg/m2 Dr. Hoda Del Rosario Work Phone: [facility] 01-09-2023 08:28-0400 Body weight 69.[address] Hoda Del Rosario Work Phone: [facility] 01-05-2023 08:24-0400 Body mass index (BMI) [Ratio] 28.3 kg/m2 Dr. Hoda Del Rosario Work Phone: [facility] 01-05-2023 08:24-0400 Body temperature 97.3 [degF] Dr. Hoda Del Rosario Work Phone: [facility] 01-05-2023 08:24-0400 Body weight 68.[address] Hoda Del Rosario Work Phone: [facility] 01-05-2023 08:24-0400 Diastolic blood pressure 90 mm[Hg] Dr. Hoda Del Rosario Work Phone: [facility] 01-05-2023 08:24-0400 Heart rate 110 /min Dr. Hoda Del Rosario Work Phone: [facility] 01-05-2023 08:24-0400 Inhaled oxygen flow rate 3 L/min Dr. Hoda Del Rosario Work Phone: [facility] 01-05-2023 08:24-0400 Respiratory rate 18 /min Dr. Hoda Del Rosario Work Phone: [facility] 01-05-2023 08:24-0400 SaO2% (BldA) [Mass fraction] 90 % Dr. Hoda Del Rosario Work Phone: [facility] 01-05-2023 08:24-0400 Systolic blood pressure 149 mm[Hg] Dr. Hoda Del Rosario Work Phone: [facility] 12-04-2022 14:51-0400 Body height 154.[address] Hoda Del Rosario Work Phone: [facility] 12-04-2022 14:47-0400 Body mass index (BMI) [Ratio] 29.5 kg/m2 Dr. Hoda Del Rosario Work Phone: [facility] 12-04-2022 14:47-0400 Body temperature 97.8 [degF] Dr. Hoda Del Rosario Work Phone: [facility] 12-04-2022 14:47-0400 Body weight 70.[address] Hoda Del Rosario Work Phone: [facility] 12-04-2022 14:47-0400 Diastolic blood pressure 80 mm[Hg] Dr. Hoda Del Rosario Work Phone: [facility] 12-04-2022 14:47-0400 Heart rate 113 /min Dr. Hoda Del Rosario Work Phone: [facility] 12-04-2022 14:47-0400 Inhaled oxygen flow rate 3 L/min Dr. Hoda Del Rosario Work Phone: [facility] 12-04-2022 14:47-0400 Respiratory rate 16 /min Dr. Hoda Del Rosario Work Phone: [facility] 12-04-2022 14:47-0400 SaO2% (BldA) [Mass fraction] 96 % Dr. Hoda Del Rosario Work Phone: [facility] 12-04-2022 14:47-0400 Systolic blood pressure 144 mm[Hg] Dr. Hoda Del Rosario Work Phone: [facility] 11-08-2022 19:25-0400 Heart rate 103 /min Dr. Hoda Del Rosario Work Phone: [facility] 11-08-2022 19:25-0400 Inhaled oxygen flow rate 2 L/min Dr. Hoda Del Rosario Work Phone: [facility] 11-08-2022 19:25-0400 Respiratory rate 20 /min Dr. Hoda Del Rosario Work Phone: [facility] 11-08-2022 19:25-0400 SaO2% (BldA) [Mass fraction] 97 % Dr. Hoda Del Rosario Work Phone: [facility] 11-08-2022 15:27-0400 Body temperature 97.8 [degF] Dr. Hoda Del Rosario Work Phone: [facility] 11-08-2022 15:27-0400 Diastolic blood pressure 70 mm[Hg] Dr. Hoda Del Rosario Work Phone: [facility] 11-08-2022 15:27-0400 Systolic blood pressure 146 mm[Hg] Dr. Hoda Del Rosario Work Phone: [facility] 11-08-2022 15:08-0400 Body mass index (BMI) [Ratio] 30 kg/m2 Dr. Hoda Del Rosario Work Phone: [facility] 11-08-2022 15:08-0400 Body weight 72.[address] Hoda Del Rosario Work Phone: [facility] 11-08-2022 14:24-0400 Body height 154.[address] Hoda Del Rosario Work Phone: [facility] 11-08-2022 13:38-0400 Body mass index (BMI) [Ratio] 29 kg/m2 Dr. Hoda Del Rosario Work Phone: [facility] 11-08-2022 13:38-0400 Body weight 69.[address] Hoda Del Rosario Work Phone: [facility] 11-08-2022 13:38-0400 Diastolic blood pressure 75 mm[Hg] Dr. Hoda Del Rosario Work Phone: [facility] 11-08-2022 13:38-0400 Heart rate 131 /min Dr. Hoda Del Rosario Work Phone: [facility] 11-08-2022 13:38-0400 Inhaled oxygen flow rate 3 L/min Dr. Hoda Del Rosario Work Phone: [facility] 11-08-2022 13:38-0400 Respiratory rate 20 /min Dr. Hoda Del Rosario Work Phone: [facility] 11-08-2022 13:38-0400 SaO2% (BldA) [Mass fraction] 84 % Dr. Hoda Del Rosario Work Phone: [facility] 11-08-2022 13:38-0400 Systolic blood pressure 141 mm[Hg] Dr. Hoda Del Rosario Work Phone: [facility] 09-27-2022 13:30-0400 Heart rate 110 /min Dr. Hoda Del Rosario Work Phone: [facility] 09-27-2022 13:30-0400 Inhaled oxygen flow rate 2 L/min Dr. Hoda Del Rosario Work Phone: [facility] 09-27-2022 13:30-0400 Respiratory rate 28 /min Dr. Hoda Del Rosario Work Phone: [facility] 09-27-2022 13:30-0400 SaO2% (BldA) [Mass fraction] 97 % Dr. Hoda Del Rosario Work Phone: [facility] 09-27-2022 12:56-0400 Body temperature 97.7 [degF] Dr. Hoda Del Rosario Work Phone: [facility] 09-27-2022 12:56-0400 Diastolic blood pressure 59 mm[Hg] Dr. Hoda Del Rosario Work Phone: [facility] 09-27-2022 12:56-0400 Systolic blood pressure 121 mm[Hg] Dr. Hoda Del Rosario Work Phone: [facility] 09-27-2022 03:50-0400 Inhaled oxygen concentration 35 % Dr. Hoda Del Rosario Work Phone: [facility] 09-27-2022 03:37-0400 Body mass index (BMI) [Ratio] 28.9 kg/m2 Dr. Hoda Del Rosario Work Phone: [facility] 09-27-2022 03:37-0400 Body weight 69.[address] Hoda Del Rosario Work Phone: [facility] 09-22-2022 14:36-0400 Body height 154.[address] Hoda Del Rosario Work Phone: [facility] 09-21-2022 19:34-0400 Body temperature 98.2 [degF] Dr. Hoda Del Rosario Work Phone: [facility] 09-21-2022 19:34-0400 Diastolic blood pressure 76 mm[Hg] Dr. Hoda Del Rosario Work Phone: [facility] 09-21-2022 19:34-0400 Heart rate 108 /min Dr. Hoda Del Rosario Work Phone: [facility] 09-21-2022 19:34-0400 Respiratory rate 30 /min Dr. Hoda Del Rosario Work Phone: [facility] 09-21-2022 19:34-0400 SaO2% (BldA) [Mass fraction] 95 % Dr. Hoda Del Rosario Work Phone: [facility] 09-21-2022 19:34-0400 Systolic blood pressure 134 mm[Hg] Dr. Hoda Del Rosario Work Phone: [facility] 09-21-2022 17:50-0400 Inhaled oxygen flow rate 4 L/min Dr. Hoda Del Rosario Work Phone: [facility] 09-21-2022 16:29-0400 Body height 154.[address] Hoda Del Rosario Work Phone: [facility] 09-21-2022 16:29-0400 Body mass index (BMI) [Ratio] 33.3 kg/m2 Dr. Hoda Del Rosario Work Phone: [facility] 09-21-2022 16:29-04[address] Body weight [address] Hoda Del Rosario Work Phone: [facility] Encounters Encounter Date Encounter Type Care Provider Facility Start: 12-08-2024 ambulatory [facility] Facility: [facility] Start: 11-10-[address] [facility] Facility: [facility] Start: 11-06-2024 End: 11-06-2024 Patient encounter procedure Bassem Case [employer] SEWER Work Phone: [facility] Comment on above: Pulmonary hypertensi on, unspecified (HCC) (Primary Dx); Interstitial lung disease (HCC); Chronic hypoxic respiratory failure, on home oxygen therapy (HCC) Start: 11-06-2024 End: 11-06-2024 ambulatory HODA DEL ROSARIO Facility:[facility] Start: 10-29-2024 End: 10-29-[address] John Wheatley MD -[facility] Work Phone: Start: 10-29-2024 End: 10-29-[address] Hoda Del Rosario MD Work Phone: [facility] Work Phone: Start: 10-29-[address] Hoda tamayo MD -Pulmonary Rehab Work Phone: Start: 10-24-2024 End: 10-25-[address] Hoda Del Rosario MD Work Phone: [facility] Work Phone: Start: 10-24-2024 End: 10-25-[address] 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 Hoda Del Rosario MD -Pulmonary Rehab Work Phone: Start: 09-11-2024 End: 09-11-2024 Telephone encounter Amol Godwin MD Work Phone: Pulmonary Medicine Comment on above: insurance authorizat ion / [employer] Start: 09-08-[address] Hoda tamayo MD -Pulmonary Rehab Work Phone: Start: 09-04-2024 End: 09-04-[address] Hoda Del Rosario MD Work Phone: [facility] Work Phone: Start: 09-04-2024 End: 09-04-2024 Patient encounter procedure OUT OF TOWN DOCTOR -Pulmonary Rehab Work Phone: Start: 09-04-2024 End: 09-04-2024 ambulatory Hoda Del Rosario Facility:[facility] Start: 07-17-2024 End: 07-17-[address] Hoda Del Rosario MD Work Phone: [facility] Work Phone: Start: 07-17-2024 End: 07-17-[address] [facility] Start: 07-17-2024 End: 07-17-2024 ambulatory Hoda Del Rosario Facility:[facility] Start: 07-10-2024 End: 07-10-2024 Patient encounter procedure Bassem Case APRN.CNS Work Phone: [facility] Comment on above: Chronic diastolic he art failure (HCC) (Primary Dx); Hypervolemia, unspecified hypervolemia type; Pulmonary hypertension, unspecified (HCC); Chronic respiratory failure with hypoxia (HCC) Start: 07-10-2024 End: 07-10-2024 ambulatory HODA DEL ROSARIO Facility:[facility] Start: 07-08-2024 End: 07-08-2024 ambulatory Salvador Marin MD Work Phone: Pulmonary Medicine Comment on above: ILD (interstitial ery ng disease) (HCC) (Primary Dx); Pulmonary hypertension (HCC); High risk medication use; Chronic hypoxemic respiratory failure (HCC); Congestive heart failure, unspecified HF chronicity, unspecified heart failure type (HCC) Start: 07-08-2024 End: 07-08-2024 Telemedicine consultation with patient Salvador Marin MD Work Phone: Pulmonary Medicine Start: 07-06-2024 Non-patient / Non-visit Dr. Mamta Zavala MD -[facility] Work Phone: Start: 07-05-2024 Non-patient / Non-visit Dr. Mamta Zavala MD -[facility] Work Phone: Start: 07-04-2024 End: 07-04-2024 Telephone encounter Amol Godwin MD Work Phone: Pulmonary Medicine Comment on above: Results; Patient Upd ate Start: 07-04-2024 Non-patient / Non-visit Dr. Mamta Zavala MD -[facility] Work Phone: Start: 07-03-2024 Non-patient / Non-visit Dr. Mamta Zavala MD -[facility] Work Phone: Start: 07-03-2024 Non-patient / Non-visit Dr. Kamari Rao own DO -[facility] Start: 07-02-2024 Non-patient / Non-visit Dr. Kamari Rao own DO -[facility] Start: 07-02-2024 Non-patient / Non-visit Dr. Mamta Zavala MD -[facility] Work Phone: Start: 07-01-2024 Non-patient / Non-visit Dr. Kamari Rao own DO -[facility] Start: 06-30-2024 End: 07-01-2024 Telephone encounter Amol Godwin MD Work Phone: Pulmonary Medicine Comment on above: Patient Update Start: 06-30-2024 Non-patient / Non-visit Dr. Mamta Zavala MD -[facility] Work Phone: Start: 06-29-2024 Non-patient / Non-visit Dr. Silvestre Con[facility] Work Phone: Start: 06-28-2024 ambulatory Mamta Zavala [place] Start: 06-28-2024 End: 07-06-2024 Evaluation and management of inpatient Dr. Mamta Zavala MD -Progressive Care Unit Work Phone: Start: 06-23-2024 End: 06-23-2024 ambulatory SALVADOR MARIN Facility:[facility] Start: 06-05-2024 End: 06-06-2024 Refill Salvador Marin MD Work Phone: Pulmonary Medicine Comment on above: Refill Request Start: 06-04-2024 End: 06-04-2024 Telephone encounter Emely Swan RN Pulmonary Medicine Start: 06-03-2024 End: 06-03-2024 ambulatory SALVADOR MARIN Facility:[facility] Start: 06-03-2024 End: 06-03-2024 Office outpatient visit 40 minutes Salvador Marin MD Work Phone: Pulmonary Medicine Comment on above: Interstitial pulmona ry disease (HCC) (Primary Dx); High risk medication use; Pulmonary hypertension (HCC); Chronic hypoxemic respiratory failure (HCC) Start: 05-29-2024 End: 05-29-2024 Telephone encounter Jason Macias POWERHOUSE MECHANIC APPRENTICE.UPSETTER SETTER UP Work Phone: Pulmonary Medicine Comment on above: Appointment; Results Start: 05-19-2024 End: 05-19-2024 Telephone encounter Jason Macias POWERHOUSE MECHANIC APPRENTICE.UPSETTER SETTER UP Work Phone: Pulmonary Medicine Start: 05-19-2024 End: 05-19-[address] Hoda Del Rosario MD -Laboratory, [facility] Start: 05-19-2024 End: 05-19-2024 ambulatory Hoda Mialyce Facility:[facility] Start: 05-16-2024 ambulatory HODA E CARIN Facilit y:[facility] Start: 05-16-2024 End: 05-16-2024 Subsequent hospital visit by physician Echo Lab [facility] CARDIAC TESTING Comment on above: Pulmonary HTN (HCC) [I27.20] ILD (interstitial rey ng disease) (HCC) [J84.9] Start: 04-30-2024 End: 04-30-[address] John Wheatley MD -[facility] Work Phone: Start: 04-30-2024 End: 04-30-2024 [facility] Start: 04-29-2024 End: 04-29-2024 Patient encounter procedure Bassem Case POWERHOUSE MECHANIC APPRENTICE.[employer] SEWER Work Phone: [facility] Comment on above: Pulmonary hypertensi on, unspecified (HCC) (Primary Dx); Essential hypertension, benign; Chronic respiratory failure with hypoxia (HCC); Medication management Start: 04-29-2024 End: 04-29-2024 ambulatory AMOL GODWIN Facility:[facility] Start: 04-22-2024 End: 04-22-[address] Hoda Del Rosario MD -Laboratory, [facility] Start: 04-22-2024 End: 04-22-2024 Telephone encounter Heri Tabor MD Work Phone: Pulmonary Medicine Comment on above: FYI-No Action Needed (PAP supply order) Start: 04-21-2024 End: 04-22-2024 ambulatory HERI TABOR Facility:[facility] Start: 04-21-2024 End: 04-21-2024 Patient encounter procedure Heri Tabor MD Work Phone: Pulmonary Comment on above: Difficulty using con tinuous positive airway pressure (CPAP) nasal mask (Primary Dx); CHRIS treated with BiPAP; PAH (pulmonary artery hypertension) (HCC); ILD (interstitial lung disease) (HCC); Chronic hypoxemic respiratory failure (HCC) Start: 04-17-2024 End: 04-17-2024 Orders Only Amol Godwin MD Work Phone: Pulmonary Medicine Comment on above: Chronic hypoxemic re spiratory failure (HCC) (Primary Dx) Start: 04-15-2024 End: 04-15-2024 Telephone encounter Amol Godwin MD Work Phone: Pulmonary Medicine Start: 04-09-2024 End: 04-09-2024 ambulatory Pulm Lab [facility] Work Phone: [facility]ULM [facility] Comment on above: Spirometry Start: 04-09-2024 End: 04-09-2024 Patient encounter procedure [facility] Work Phone: [facility] Start: 04-02-2024 End: 04-02-2024 ambulatory JASON SEABOLD Facility:[facility] Start: 02-25-2024 End: 02-25-2024 ambulatory JASON SEALD Facility:[facility] Start: 02-25-2024 End: 02-25-2024 Patient encounter procedure Jason Seabold 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.UPSETTER SETTER UP Work Phone: Pulmonary Medicine Comment on above: Pulmonary HTN (HCC) (Primary Dx); ILD (interstitial lung disease) (HCC); Chronic hypoxemic respiratory failure (HCC); Chronic obstructive pulmonary disease, unspecified COPD type (HCC); CHRIS (obstructive sleep apnea) Start: 02-08-2024 End: 02-08-2024 Telephone encounter Amol Godwin MD Work Phone: Pulmonary Medicine Start: 01-25-2024 End: 01-25-2024 ambulatory [facility] Pulm Lab Comment on above: Spirometry Start: 01-25-2024 End: 01-25-2024 Patient encounter [facility] Start: 01-25-2024 End: 01-25-2024 ambulatory AMOL GODWIN Facility:[facility] Start: 01-11-2024 Telephone encounter Amol Godwin MD Work Phone: Pulmonary Medicine Comment on above: Results Start: 01-10-2024 End: 01-10-2024 ambulatory Pulm Lab [facility] Work Phone: [facility] Comment on above: Spirometry Start: 01-10-2024 End: 01-10-2024 Patient encounter procedure [facility] Work Phone: [facility] Start: 01-08-2024 End: 01-08-2024 Patient encounter procedure Bassem Case POWERHOUSE MECHANIC APPRENTICE.FUR COAT SEWER Work Phone: [facility] Comment on above: Pulmonary hypertensi on, unspecified (HCC) (Primary Dx); Essential hypertension, benign; Chronic respiratory failure with hypoxia (HCC) Start: 01-08-2024 End: 01-08-2024 ambulatory AMOL GODWIN Facility:[facility] Start: 11-15-2023 Chart abstracting Aide Dunaway RN Pulmonary Medicine Comment on above: Home Visit ([facility] Visit for [place]) Start: 11-15-2023 End: 11-15-2023 Patient encounter procedure Bassem Case APRN.FUR COAT SEWER Work Phone: [facility] Comment on above: Pulmonary hypertensi on, unspecified (HCC) (Primary Dx); Essential hypertension, benign; Chronic respiratory failure with hypoxia (HCC) Start: 11-15-2023 End: 11-15-2023 ambulatory BASSEM CASE Facility:[facility] Start: 11-14-2023 End: 11-14-2023 ambulatory Hoda Del Rosario Facility:[facility] Start: 11-09-2023 Telephone encounter Amol Godwin MD Work Phone: [facility] Comment on above: [place]-Chronic care refe rral Start: 10-26-2023 Telephone encounter Amol Godwin MD Work Phone: Pulmonary Medicine Comment on above: FYI-No Action Needed Start: 10-24-2023 End: 10-24-2023 ambulatory AMOL GODWIN Facility:[facility] Start: 10-24-2023 End: 10-24-2023 Patient encounter procedure Amol Godwin MD Work Phone: Pulmonary Medicine Comment on above: Pulmonary HTN (HCC) (Primary Dx); ILD (interstitial lung disease) (HCC); Primary generalized (osteo)arthritis Start: 10-11-2023 Chart abstracting Steve liriano Work Phone: Pulmonary Medicine Comment on above: Insurance Authorizat ion ([employer] DPI) Start: 10-10-2023 Telephone encounter Amol Godwin MD Work Phone: Pulmonary Medicine Comment on above: Portable oxygen Start: 10-08-2023 Telephone encounter Bertin corona PA-C Work Phone: [place] [facility] Comment on above: Hospital Follow Up Start: 10-04-2023 Chart abstracting Steve liriano Work Phone: Pulmonary Medicine Comment on above: Insurance Authorizat ion ([employer] DPI) Start: 10-03-2023 Orders Only Amol Aragon i, MD Work Phone: Pulmonary Medicine Comment on above: Pulmonary HTN (HCC) (Primary Dx) Start: 10-02-2023 End: 10-02-2023 Patient encounter procedure Arie Lee MD Work Phone: Pulmonary Medicine Comment on above: Pulmonary HTN (HCC) (Primary Dx) Start: 07-26-2023 Non-patient / Non-visit Dr. Jm Del Rosario Work Phone: [facility] Start: 07-25-2023 End: 07-25-[address] Hoda Del Rosario Work Phone: [facility] Work Phone: Start: 07-25-2023 End: 07-25-[address] Hoda Del Rosario Work Phone: [facility]-Pulmonary Services/Neurology Work Phone: Start: 07-23-2023 End: 07-23-[address] Hoda Del Rosario Work Phone: [facility] Work Phone: Start: 07-23-2023 End: 07-23-[address] [facility] Work [facility] Start: 05-16-2023 End: 05-16-[address] Hoda Del Rosario Work Phone: [facility] Work Phone: Start: 05-16-2023 End: 05-16-[address] Hoda Del Rosario Work Phone: [facility]-Laboratory Work Phone: Start: 05-09-2023 End: 05-09-[address] Hoda Del Rosario Work Phone: [facility] Work Phone: Start: 05-07-2023 End: 05-07-[address] Hoda Del Rosario Work Phone: [facility]-Pulmonary Medicine [facility] Work Phone: Start: 04-27-2023 End: 04-27-[address] Hoda Del Rosario Work Phone: [facility] Work Phone: Start: 04-27-2023 End: 04-27-[address] Hoda Del Rosario Work Phone: [facility]-Outpatient Breast Imaging Work Phone: Start: 04-18-2023 End: 04-18-[address] Hoda Del Rosario Work Phone: [facility] Work Phone: Start: 04-18-2023 End: 04-18-[address] Hoda Del Rosario Work Phone: [facility]-Laboratory, [facility] Start: 04-16-2023 End: 04-16-2023 Admission to same day surgery center Dr. Hoda Del Rosario Work Phone: [facility]-Sr Vice President/Special Procedures Work Phone: Start: 04-16-2023 End: 04-16-[address] Hoda Del Rosario Work Phone: [facility] Work Phone: Start: 03-16-2023 Non-patient / Non-visit Dr. Jm Del Rosario Work Phone: [facility] Start: 02-22-2023 Non-patient / Non-visit Dr. Jm Del Rosario Work Phone: [facility] Start: 02-22-2023 End: 02-22-[address] Hoda Del Rosario Work Phone: [facility] Work Phone: Start: 02-22-2023 End: 02-22-[address] Hoda Del Rosario Work Phone: [facility]-Cardiovascul ar Services Work Phone: Start: 02-05-2023 End: 02-05-[address] Hoda Del Rosario Work Phone: [facility] Work Phone: Start: 01-30-2023 End: 01-30-[address] Hoda Del Rosario Work Phone: [facility] Work Phone: Start: 01-30-2023 End: 01-30-[address] Hoda Del Rosario Work Phone: [facility]-Sleep Lab Work Phone: Start: 01-26-2023 Non-patient / Non-visit Dr. Jm Del Rosario Work Phone: [facility] Work Phone: Start: 01-16-2023 End: 01-16-[address] Hoda Del Rosario Work Phone: [facility] Work Phone: Start: 01-16-2023 End: 01-16-[address] Hoda Del Rosario Work Phone: [facility]-Sleep Lab Work Phone: Start: 01-09-2023 Non-patient / Non-visit Dr. Jm Del Rosario Work Phone: [facility] Start: 01-09-2023 End: 01-09-2023 Admission to same day surgery center Dr. Hoda Del Rosario Work Phone: [facility]-Endoscopy Work Phone: Start: 01-09-2023 End: 01-09-[address] Hoda Del Rosario Work Phone: [facility] Work Phone: Start: 01-05-2023 End: 01-05-[address] [facility] Del [facility] Work Phone: Start: 01-02-2023 Non-patient / Non-visit Dr. Jm Del Rosario Work Phone: [facility] Start: 01-01-2023 End: 01-01-[address] Hoda Del Rosario Work Phone: [facility] Work Phone: Start: 01-01-2023 End: 01-01-[address] [facility]oda Del Rosario [facility] Work [facility] Start: 12-04-2022 End: 12-04-[address] Hoda Del Rosario Work Phone: [facility]-Laboratory Work Phone: Start: 12-04-2022 End: 12-04-[address] Hoda Del Rosario [facility] Work Phone: Start: 11-20-2022 End: 11-20-[address] Hoda Del Rosario Work Phone: [facility] Work Phone: Start: 11-08-2022 End: 11-08-2022 Emergency department patient visit Dr. Hoda Del Rosario Work Phone: [facility]-Emergency Department Start: 11-08-2022 End: 11-08-[address] Hoda Del Rosario [facility] Start: 11-03-2022 End: 11-03-[address] Hoda Del Rosario Work Phone: [facility] Work Phone: Start: 11-03-2022 End: 11-03-[address] Hoda Del Rosario Work Phone: [facility] Start: 10-31-2022 End: 10-31-[address] Hoda Del Rosario Work Phone: [facility] Work Phone: Start: 10-31-2022 End: 10-31-[address] Hoda Del Rosario Work Phone: [facility]-Physical Therapy Start: 10-13-2022 End: 10-13-[address] Hoda Del Rosario Work Phone: [facility] Start: 09-27-2022 Non-patient / Non-visit Dr. Jm Del Rosario Work Phone: [facility] Start: 09-27-2022 Non-patient / Non-visit Dr. Jm Del Rosario Work Phone: [facility] Start: 09-26-2022 Non-patient / Non-visit Dr. Jm Del Rosario Work Phone: [facility] Start: 09-25-2022 Non-patient / Non-visit Dr. Jm Del Rosario Work Phone: [facility] Start: 09-24-2022 Non-patient / Non-visit Dr. Jm Del Rosario Work Phone: [facility] Start: 09-23-2022 Non-patient / Non-visit Dr. Jm Del Rosario Work Phone: [facility] Start: 09-22-2022 Non-patient / Non-visit Dr. Jm Del Rosario Work Phone: [facility] Start: 09-22-2022 Non-patient / Non-visit Dr. Jm Del Rosario Work Phone: [facility] Start: 09-21-2022 Non-patient / Non-visit Dr. Jm Del Rosario Work Phone: [facility] Physicians Start: 09-21-2022 End: 09-27-2022 Evaluation and management of inpatient Dr. Hoda Del Rosario Work Phone: [facility] Start: 09-21-[address] Charlotte Del Rosario Work Phone: [facility] Start: 08-01-2022 End: 08-01-2022 ambulatory [facility] Work Phone: Start: 08-01-2022 End: 08-01-2022 Patient encounter procedure [facility], [facility] Start: 05-30-2022 End: 05-30-2022 ambulatory [facility] Work Phone: Start: 05-30-2022 End: 05-30-2022 Discharged Recurring [facility] Start: 04-07-2022 End: 04-07-2022 ambulatory [facility] Work Phone: Start: 04-07-2022 End: 04-07-2022 Patient encounter procedure [facility] Kirsten Andersonferoz [facility] Start: 07-21-2009 Patient encounter status Albert Lee MD Work Phone: [facility] Work Phone: Procedures Date Procedure Procedure Detail Performing Clinician Start: 07-17-2024 Measurement of renal function Dr. Hoda Del Rosario MD Work Phone: Comment on above: GFR Calc Start: 07-06-[address] Hoda Del Rosario MD Work Phone: Start: 07-06-2024 Measurement of renal function Dr. Hoda Del Rosario MD Work Phone: Comment on above: GFR Calc Start: 06-29-2024 Carbon dioxide measu rement, partial pressure Dr. Hoda Del Rosario MD Work Phone: Start: 06-29-2024 Gases blood o2 satur ation only direct juanpablo Dr. Hoda Del Rosario MD Work Phone: Start: 06-29-2024 Measurement of parti al pressure of oxygen in blood Dr. Hoda Del Rosario MD Work Phone: Start: 06-29-[address] Hoda Del Rosario MD Work Phone: Start: 06-29-2024 Gram stain microscopy D xu Del Rosario MD Work Phone: Start: 06-29-2024 Res[address] microbia l culture Dr. Hoda Del Rosario MD Work Phone: Start: 06-28-[address] Charlotte Del Rosario MD Work Phone: Start: 06-28-[address] Hoda Del Rosario MD Work Phone: Start: 06-28-2024 SARS-CoV-2, Influenz a & RSV (PCR) Dr. Hoda Del Rosario MD Work Phone: Start: 06-28-2024 CT angiography of ch est with contrast Dr. Hoda Del Rosario MD Work Phone: Start: 06-28-2024 Plain chest X-ray Dr. Koby Del Rosario MD Work Phone: Start: 05-16-2024 Echo tthrc r-t 2d w/ wom-mode compl spec&colr d Jason Seabold POWERHOUSE MECHANIC APPRENTICE.UPSETTER SETTER UP Work Phone: Start: 04-09-2024 Pulmonary stress testing Amol Godwin MD Work Phone: Start: 01-25-2024 Plethysmography lung volumes w/wo airway resist Amol Godwin MD Work Phone: Start: 01-10-2024 Noninvasive ear/puls e oximetry multiple deter Amol Godwin MD Work Phone: Start: 04-27-2023 Screening mammography D xu Del Rosario Work Phone: Start: 02-22-2023 Cardiovascular stres s test using pharmacologic stress agent Dr. Hoda Del Rosario Work Phone: Start: 01-09-[address] Hoda Del Rosario Work Phone: Start: 12-04-2022 Plain chest X-ray Dr. Koby Del Rosario Work Phone: Start: 11-08-2022 CT angiography of ch est with contrast Dr. Hoda Del Rosario Work Phone: Start: 11-08-2022 CT of head without contrast Dr. Hoda Del Rosario Work Phone: Start: 11-03-2022 Plain chest X-ray Dr. Koby Del Rosario Work Phone: Start: 09-26-2022 Plain chest X-ray Dr. Koby Del Rosario Work Phone: Start: 09-25-2022 Plain chest X-ray Dr. Koby Del Rosario Work Phone: Start: 09-24-2022 Plain chest X-ray Dr. Koby Del Rosario Work Phone: Start: 09-21-2022 CT angiography of ch est with contrast Dr. Hoda Del Rosario Work Phone: Start: 09-21-2022 Plain chest X-ray Dr. Koby Del Rosario Work Phone: Start: 09-21-2022 Bacteria identified in Blood by Culture Dr. Hoda Del Rosario Work Phone: Start: 09-21-2022 Respiratory Panel (PCR) Dr. Hoda Del Rosario Work Phone: Start: 09-21-[address] Charlotte Del Rosario Work Phone: Start: 08-13-2013 Lipid 1996 panel - S dontae or Plasma Arie Lee MD Work Phone: Start: 11-01-2012 Colonoscopy Arie Lee MD Work Phone: Bacteria identified in Blood by Culture Dr. Hoda Del Rosario Work Phone: SARS-CoV-2 & FLU Ant igen (Rapid) Dr. Hoda Del Rosario Work Phone: Urine culture Dr. Hoda doe Work Phone: Plan of Treatment Date Care Activity Detail Author Start: 10-04-2026 Diabetes Screening Diabetes Screenin [facility] Start: 10-02-2026 Diabetes Screening Diabetes Screenin [facility] Start: 10-01-2026 Diabetes Screening Diabetes Screenin g [facility] Start: 10-25-2025 Screening for malign ant neoplasm of colon Cologuard (FIT-DNA) [facility] Start: 07-10-2025 BP Controlled (<130/80) BP Controlle d (<130/80) [facility] Start: 03-26-2025 End: 03-26-2025 Patient encounter procedure 03/26/2025 2:00 PM EDT Office Visit [facility] [address] [place] [address] Bassem Case, ELMA.[employer] SEWER [address] [place] [address] 4 mo f/u [facility] Comment on above: 4 mo f/u Start: 01-26-2025 Influenza vaccination Influenz a Vaccine (Season Ended) [facility] Start: 12-25-2024 End: 12-25-2024 Patient encounter procedure 12/25/2024 2:15 PM EDT Office Visit Pulmonary Medicine [address] [place], [place] [phone] Amol Godwin MD [address] [place], [place] [id number] 3 month follow up Pulmonary Medicine Comment on above: 3 month follow up Start: 11-06-2024 End: 11-06-2024 Patient encounter procedure 11/06/2024 2:00 PM EDT Office Visit [facility] [address] [place] [address] Bassem Case, POWERHOUSE MECHANIC APPRENTICE.[employer] SEWER [address] [place], [place] [phone] 4 mo f/u [facility] Comment on above: 4 mo f/u Start: 09-26-2024 End: 09-26-2024 Patient encounter procedure 09/26/2024 2:30 PM EDT Office Visit Pulmonary Medicine [address] [place] [address] Amol Godwin MD [address] [place] [phone] follow up/pt was originally scheduled in bath and did not know it was in bath, she wanted to R/S with first available, advised that it would also be in bath and she understood. Pulmonary Medicine Comment on above: follow up/pt was paco ginally scheduled in bath and did not know it was in bath, she wanted to R/S with first available, advised that it would also be in bath and she understood. Start: 09-05-2024 End: 09-05-2024 Patient encounter procedure 09/05/2024 1:45 PM EDT Office Visit Pulmonary Medicine [address] [place] [address] Amol Godwin MD [address] [place] [phone] follow up Pulmonary Medicine Comment on above: follow up Start: 07-24-2024 End: 07-24-2024 Patient encounter procedure 07/24/2024 2:00 PM EST Office Visit [facility] [address] [place] [address] Bassem Case, ELMA.[employer] COAT SEWER [address] [place] [address] 2 mo f/u [facility] Comment on above: 2 mo f/u Start: 07-21-2024 End: 07-21-2024 Patient encounter procedure Pulmonary Comment on above: sleep follow up sleep follow up os a---in airview Start: 07-17-2024 End: 10-16-2024 Basic metabolic 2000 panel - Serum or Plasma BASIC METABOLIC PANEL Lab Routine Chronic diastolic heart failure (HCC) Hypervolemia, unspecified hypervolemia type Pulmonary hypertension, unspecified (HCC) Expected: 07/17/2024, Expires: 10/16/2024 [facility] Work Phone: Comment on above: Expected: 07/17/2024 , Expires: 10/16/2024 Start: 07-10-2024 End: 10-09-2024 Natriuretic peptide.B prohormone N-Terminal [Mass/volume] in Serum or Plasma NT PRO BNP Lab Routine Chronic diastolic heart failure (HCC) Hypervolemia, unspecified hypervolemia type Pulmonary hypertension, unspecified (HCC) Expected: 07/10/2024, Expires: 10/09/2024 [facility] Comment on above: Expected: 07/10/2024 , Expires: 10/09/2024 Start: 07-10-2024 End: 07-10-2024 Patient encounter procedure 07/10/2024 2:00 PM EST Office Visit [facility] [address] [place] [address] Bassem Case, ELMA.[employer] CO[employer] SEW[employer] [address] [place] [address] moved up to 07/10 from 07/24 [facility] Comment on above: moved up to 07/10 fro 07/24 per Start: 07-08-2024 End: 07-08-2024 Follow-up encounter 07/08/2024 1:00 PM EST [facility] [address] [place] [address] Salvador Marin MD [address] [place] [address] [place] [phone] VV: 4-6 week follow up for ILD Pulmonary Medicine Comment on above: VV: 4-6 week follow up for ILD Start: 07-08-2024 End: 07-08-2024 Patient encounter procedure 07/08/2024 1:00 PM EST Office Visit Pulmonary Medicine [address] [place] [address] Salvador Marin MD [address] [address] 4-6 week follow up for ILD Pulmonary Medicine Comment on above: 4-6 week follow up f or ILD Start: 07-06-2024 Patient discharge [facility] Start: 07-02-2024 End: 07-02-2024 Patient encounter procedure 07/02/2024 2:30 PM EST Office Visit Pulmonary Medicine [address] [place] [address] Amol Godwin MD [address] [place] [phone] 3 month follow up Pulmonary Medicine Comment on above: 3 month follow up Start: 06-29-2024 Consultation [facility] Start: 06-28-2024 End: 06-29-2024 [facility] Start: 06-28-2024 Following clinical pathway protocol [facility] Start: 06-28-2024 Assessment of risk o f venous thromboembolism [facility] Start: 06-28-2024 Inhalation therapy procedure [facility] Start: 06-28-2024 Insertion of cathete r into peripheral vein [facility] Start: 06-28-2024 Oxygen therapy [facility] Start: 06-28-2024 Providing care accor ding to standard [facility] Start: 06-28-2024 Referral to service [facility] Start: 06-28-2024 Vital signs measurements [facility] Start: 06-28-2024 Admission procedure [facility] Start: 06-19-2024 End: 06-19-2024 Patient encounter procedure 06/19/2024 2:15 PM EST Office Visit Pulmonary Medicine [address] [place] [address] Amol Godwin MD [address] [place], [place] [phone] 3 month follow up Pulmonary Medicine Comment on above: 3 month follow up Start: 06-03-2024 End: 09-02-2024 Aldolase [Enzymatic activity/volume] in Serum or Plasma ALDOLASE BLD Lab Routine Interstitial pulmonary disease (HCC) Expected: 06/03/2024, Expires: 09/02/2024 [facility] Comment on above: Expected: 06/03/2024 , Expires: 09/02/2024 Start: 06-03-2024 End: 09-02-2024 GERARDO BY IFA SCREEN GERARDO BY IFA SCREEN Lab Routine Interstitial pulmonary disease (HCC) Expected: 06/03/2024, Expires: 09/02/2024 [facility] Work Phone: Comment on above: Expected: 06/03/2024 , Expires: 09/02/2024 Start: 06-03-2024 End: 09-02-2024 ANTI NEUTRO CYTO AB ANTI NEUTRO CYTO AB Lab Routine Interstitial pulmonary disease (HCC) Expected: 06/03/2024, Expires: 09/02/2024 [facility] Comment on above: Expected: 06/03/2024 , Expires: 09/02/2024 Start: 06-03-2024 End: 09-02-2024 Creatine kinase [Enzymatic activity/volume] in Serum or Plasma CREATINE KINASE/CK Lab Routine Interstitial pulmonary disease (HCC) Expected: 06/03/2024, Expires: 09/02/2024 [facility] Comment on above: Expected: 06/03/2024 , Expires: 09/02/2024 Start: 06-03-2024 End: 09-02-2024 Cyclic citrullinated peptide IgG Ab [Units/volume] in Serum or Plasma CCP ANTIBODY IGG Lab Routine Interstitial pulmonary disease (HCC) Expected: 06/03/2024, Expires: 09/02/2024 [facility] Comment on above: Expected: 06/03/2024 , Expires: 09/02/2024 Start: 06-03-2024 End: 09-02-2024 DNA ANTIBODY DS BLD DNA ANTIBODY DS BLD Lab Routine Interstitial pulmonary disease (HCC) Expected: 06/03/2024, Expires: 09/02/2024 [facility] Comment on above: Expected: 06/03/2024 , Expires: 09/02/2024 Start: 06-03-2024 End: 09-02-2024 Extractable nuclear Ab panel - Serum ANTI AGUILA ID Lab Routine Interstitial pulmonary disease ([facility]) Expected: 06/03/2024, Expires: 09/02/2024 [facility] Comment on above: Expected: 06/03/2024 , Expires: 09/02/2024 Start: 06-03-2024 End: 09-02-2024 HYPERSEN PNEUMON AB HYPERSEN PNEUMON AB Lab Routine Interstitial pulmonary disease (HCC) Expected: 06/03/2024, Expires: 09/02/2024 [facility] Comment on above: Expected: 06/03/2024 , Expires: 09/02/2024 Start: 06-03-2024 End: 09-02-2024 POLYMYOSITIS AND DERMATOMYOSITIS PANEL POLYMYOSITIS AND DERMATOMYOSITIS PANEL Lab Routine Interstitial pulmonary disease ([facility]) Expected: 06/03/2024, Expires: 09/02/2024 [facility] Comment on above: Expected: 06/03/2024 , Expires: 09/02/2024 Start: 06-03-2024 End: 09-02-2024 Rheumatoid factor [Units/volume] in Serum or Plasma RHEUMATOID FACTOR Lab Routine Interstitial pulmonary disease ([facility]) Expected: 06/03/2024, Expires: 09/02/2024 [facility] Comment on above: Expected: 06/03/2024 , Expires: 09/02/2024 Start: 06-03-2024 End: 09-02-2024 RNA POLYMERASE III AB RNA POLYMERASE III AB Lab Routine Interstitial pulmonary disease (HCC) Expected: 06/03/2024, Expires: 09/02/2024 [facility] Comment on above: Expected: 06/03/2024 , Expires: 09/02/2024 Start: 06-03-2024 End: 09-02-2024 TELOMERE LENGTH MEASUREMENT TELOMERE LENGTH MEASUREMENT Lab Routine Interstitial pulmonary disease (HCC) Expected: 06/03/2024, Expires: 09/02/2024 [facility] Comment on above: Expected: 06/03/2024 , Expires: 09/02/2024 Start: 06-03-2024 End: 09-02-2024 TH/TO ANTIBODY TH/TO ANTIBODY Lab Routine Interstitial pulmonary disease (HCC) Expected: 06/03/2024, Expires: 09/02/2024 [facility] Comment on above: Expected: 06/03/2024 , Expires: 09/02/2024 Start: 06-03-2024 End: 09-02-2024 TPMT PHENOTYPE/ENZYME ACTIVITY TPMT PHENOTYPE/ENZYME ACTIVITY Lab Routine Interstitial pulmonary disease (HCC) Expected: 06/03/2024, Expires: 09/02/2024 [facility] Comment on above: Expected: 06/03/2024 , Expires: 09/02/2024 Start: 06-03-2024 End: 06-03-2024 Patient encounter procedure 06/03/2024 1:00 PM EST Office Visit Pulmonary Medicine [address] [place] [address] Salvador Marin MD [address] [place] [phone] ILD patient. Pulmonary Medicine Comment on above: ILD patient. Start: 05-28-2024 Advance Directive Discussion Advance Directive Discussion [facility] Start: 05-28-2024 Medicare Advantage A nnual Wellness Visit Medicare Advantage Annual Wellness Visit [facility] Start: 05-16-2024 End: 05-16-2024 ambulatory 05/16/2024 2:00 PM EST Procedure [facility] Pulm Lab [address] [place], [place] [id number] ILD (interstitial lung disease) (HCC) [J84.9]; Interstitial pulmonary disease (HCC) [J84.9] [facility] Comment on above: ILD (interstitial rey ng disease) (HCC) [J84.9]; Interstitial pulmonary disease (HCC) [J84.9] Start: 05-16-2024 End: 02-24-2025 Echocardiography ECHO Cardiology Routine Pulmonary HTN (HCC) Expected: 05/16/2024, Expires: 02/24/2025 [facility] Comment on above: Expected: 05/16/2024 , Expires: 02/24/2025 Start: 05-16-2024 End: 05-16-2024 Patient encounter procedure RADIO [facility] SCAN [facility] Comment on above: ILD (interstitial rey ng disease) (HCC) [J84.9]; Interstitial pulmonary disease (HCC) [J84.9] Pulmonary HTN (HCC) [I27.20] Start: 04-29-2024 End: 04-29-2024 Patient encounter procedure 04/29/2024 1:00 PM EST Office Visit [facility] [address] [place], [place] [phone] Bassem Case, POWERHOUSE MECHANIC APPRENTICE.[employer] SEWER [address] [place], [place] [phone] 4 mo f/u [facility] Comment on above: 4 mo f/u Start: 04-25-2024 End: 07-25-2024 Natriuretic peptide.B prohormone N-Terminal [Mass/volume] in Serum or Plasma NT PRO BNP Lab Routine Pulmonary HTN (HCC) Expected: 04/25/2024, Expires: 07/25/2024 [facility] Comment on above: Expected: 04/25/2024 , Expires: 07/25/2024 Start: 04-21-2024 End: 04-21-2024 Patient encounter procedure Pulmonary Comment on above: New patient New patient Start: 02-25-2024 End: 02-25-2024 Patient encounter procedure Pulmonary Medicine Comment on above: ILD (interstitial rey ng disease) (HCC) [J84.9] Start: 01-27-2024 Covid-19 Vaccine () Covid-19 Vaccine () [facility] Start: 01-27-2024 Covid-19 Vaccine () Covid-19 Vaccine ( season) [facility] Start: 01-27-2024 Influenza vaccination [facility] Start: 01-25-2024 End: 01-25-2024 ambulatory 01/25/2024 2:45 PM EDT Procedure [facility] Pulm Lab [address] [place] [address] ILD (interstitial lung disease) (HCC) [J84.9] [facility] Lab Comment on above: ILD (interstitial rey ng disease) (HCC) [J84.9] Start: 01-25-2024 End: 01-25-2024 ambulatory [facility] Pulm Lab Comment on above: ILD (interstitial rey ng disease) (HCC) [J84.9] Start: 01-21-2024 End: 01-21-2024 ambulatory 01/21/2024 1:00 PM EDT Procedure [facility] Pulm Lab [address] [place] [address] ILD (interstitial lung disease) (HCC) [J84.9] [facility]m Lab Comment on above: ILD (interstitial rey ng disease) (HCC) [J84.9] Start: 01-10-2024 End: 01-10-2024 ambulatory 01/10/2024 12:30 PM EDT Procedure PULM LAB [facility] [address] [place] [address] [facility], Pulm Lab [facility] [address] [place] [address] ILD (interstitial lung disease) (HCC) [J84.9] [facility] Comment on above: ILD (interstitial rey ng disease) (HCC) [J84.9] Start: 01-08-2024 End: 01-08-2024 Patient encounter procedure 01/08/2024 11:00 AM EDT Office Visit [facility] [address] [place] [address] Bassem Case, ELMA.[employer] COAT SEWER [address] [place] [address] 2 mo f/u [facility] Comment on above: 2 mo f/u Start: 11-15-2023 End: 11-15-2023 Patient encounter procedure 11/15/2023 11:00 AM EDT Office Visit [facility] [address] [place] [address] Bassem Case APRN.[employer]ER [address] [place] [address] new pt [facility] Comment on above: new pt Start: 10-24-2023 End: 10-24-2023 Patient encounter procedure 10/24/2023 2:20 PM EDT Office Visit Pulmonary Medicine [address] [place], [place] [phone] Amol Godwin MD [address] [place] [phone] hosp follow up appt - resp failure Pulmonary Medicine Comment on above: hosp follow up appt - resp failure Start: 10-24-2023 End: 01-23-2024 GERARDO BY IFA WITH REFLEX [facility] Work Phone: Comment on above: Expected: 10/24/2023 , Expires: 01/23/2024 Start: 10-24-2023 End: 01-23-2024 Cyclic citrullinated peptide IgG Ab [Units/volume] in Serum or Plasma [facility] Comment on above: Expected: 10/24/2023 , Expires: 01/23/2024 Start: 10-24-2023 End: 01-23-2024 HYPERSEN PNEUMON AB [facility] Comment on above: Expected: 10/24/2023 , Expires: 01/23/2024 Start: 10-24-2023 End: 01-23-2024 Rheumatoid factor [Units/volume] in Serum or Plasma [facility] Comment on above: Expected: 10/24/2023 , Expires: 01/23/2024 Start: 10-04-2023 End: 10-04-2023 Evaluation and management of inpatient 10/04/2023 12:30 PM EDT - 10/04/2023 1:30 PM EDT Surgery [facility] [address] [place] [address] Amol Godwin MD [address] [place] [address] RIGHT HEART CATHETERIZATION INCLUDING MEASUREMENT OF OXYGEN SATURATION AND CARDIAC OUTPUT [facility] Comment on above: RIGHT HEART CATHETER IZATION INCLUDING MEASUREMENT OF OXYGEN SATURATION AND CARDIAC OUTPUT Start: 10-04-2023 End: 10-04-2023 Right heart cath o2 saturation & cardiac output RIGHT HEART CATHETERIZATION INCLUDING MEASUREMENT OF OXYGEN SATURATION AND CARDIAC OUTPUT Pulmonary HTN (HCC) 10/04/2023 12:30 PM EDT [facility] Start: 05-28-2023 Advance Directive Discussion Advance Directive Discussion [facility] Start: 05-28-2023 Behavioral Health Screening Behavioral Health Screening [facility] Start: 04-16-2023 Patient discharge [facility] Start: 01-26-2023 Covid-19 Vaccine () Covid-19 Vaccine () [facility] Start: 01-09-2023 Colonoscopy flx dx w/collj spec when pfrmd DIAGNOSTIC COLONOSCOPY [facility] Start: 01-09-2023 Patient discharge [facility] Start: 11-01-2022 Screening for malign ant neoplasm of colon [facility] Start: 09-27-2022 Patient discharge [facility] Start: 09-26-2022 [facility] Start: 09-25-2022 Consultation [facility] Start: 09-25-2022 Continuous pulse oximetry [facility] Start: 09-25-2022 Dual pressure sponta neous ventilation support [facility] Start: 09-23-2022 [facility] Start: 09-21-2022 Following clinical pathway protocol [facility] Start: 09-21-2022 Application of elast ic bandage [facility] Start: 09-21-2022 Assessment of risk o f venous thromboembolism [facility] Start: 09-21-2022 Catheterization of vein [facility] Start: 09-21-2022 Elevation of affecte d extremity [facility] Start: 09-21-2022 Insertion of cathete r into peripheral vein [facility] Start: 09-21-2022 Measuring intake and output [facility] Start: 09-21-2022 Notification of physician [facility] Start: 09-21-2022 Oxygen therapy [facility] Start: 09-21-2022 Patient education [facility] Start: 09-21-2022 Providing care accor ding to standard [facility] Start: 09-21-2022 Provision of activit y privileges [facility] Start: 09-21-2022 Referral to occupati onal therapist [facility] Start: 09-21-2022 Referral to service [facility] Start: 09-21-2022 [facility] Start: 09-21-2022 Verification routine [facility] Start: 09-21-2022 Admission procedure [facility] Start: 09-21-2022 End: 09-21-2022 [facility] Start: 09-21-2022 Blood culture [facility] Start: 09-21-2022 [facility] Start: 04-08-2022 Screening for malign ant neoplasm of breast Mammogram Screening [facility] Start: 12-06-2020 Pneumococcal Vaccine : 65+ (1 of 1 - PCV) Pneumococcal Vaccine: 65+ (1 of 1 - PCV) [facility] Start: 12-06-2020 Screening for osteoporosis Bone Density Screening [facility] Start: 04-19-2019 Urine microalbumin profile DTaP,Tdap,Td Vaccine (2 - Td or Tdap) [facility] Start: 08-13-2018 Lipid panel Lipid Screening [facility] Start: 2015 RSV Vaccine (1 - 1-d ose 60+ series) RSV Vaccine (1 - 1-dose 60+ series) [facility] Start: 2015 RSV Vaccine (1 - Ris k 60-74 years 1-dose series) RSV Vaccine (1 - Risk 60-74 years 1-dose series) [facility] Start: 08-24-2012 Screening for malign ant neoplasm of colon Fecal Occult Blood [facility] Start: 12-06-2005 Shingrix Vaccine (1 of 2) Rolon grix Vaccine (1 of 2) [facility] Start: 12-06-2000 Screening for malign ant neoplasm of colon [facility] Start: 12-06-1985 Zoledronic acid therapy Alpha- 1 Antitrypsin Deficiency Screening [facility] Start: 12-06-1974 Pneumococcal Vaccine : 50+ (1 of 2 - PCV) Pneumococcal Vaccine: 50+ (1 of 2 - PCV) [facility] Start: 12-06-1973 Annual PCP Team Senior Health Educator eloy Disease Visit Annual PCP Team Chronic Disease Visit [facility] Start: 12-06-1973 Anxiety Screening Anxiety Screening [facility] Start: 12-06-1973 BP Controlled (<130/80) BP Controlle d (<130/80) [facility] Start: 12-06-1973 Depression Screening Depression Scre ening [facility] Start: 12-06-1973 Hepatitis C screening Hepatitis C Sc lizy [facility] Start: 12-06-1961 Pneumococcal Vaccine : 65+ (1 of 2 - PCV) Pneumococcal Vaccine: 65+ (1 of 2 - PCV) [facility] [facility] Bacteria identified in Blood by Culture Blood Culture [facility] Bacteria identified in Urine by Culture Urine Culture [facility] Continuous pulse oximetry [facility] End: 03-26-2025 CT Chest WO contrast CT CHEST WO IVCON Radiology Routine ILD (interstitial lung disease) (HCC) 1 Occurrences starting 02/25/2024 until 03/26/2025 [facility] Work Phone: Comment on above: 1 Occurrences starti ng 02/25/2024 until 03/26/2025 End: 05-16-2024 CT Chest WO contrast [facility] Work Phone: Comment on above: 1 Occurrences starti ng 05/16/2024 until 05/16/2024 Cyclic citrullinated peptide IgG Ab [Units/volume] in Serum or Plasma [facility] Exercise tolerance test [facility] Hemoglobin A1c/Hemoglobin.total in Blood [facility] End: 11-22-2024 LUNG DIFFUSION CAPACITY (DLCO) LUNG DIFFUSION CAPACITY (DLCO) PFT Routine ILD (interstitial lung disease) (HCC) 1 Occurrences starting 10/24/2023 until 11/22/2024 [facility] Comment on above: 1 Occurrences starti ng 10/24/2023 until 11/22/2024 LUNG DIFFUSION CAPAC ITY (DLCO) LUNG DIFFUSION CAPACITY (DLCO) PFT Routine ILD (interstitial lung disease) (HCC) 01/25/2024 1:47 PM EDT [facility] Work Phone: End: 07-03-2025 LUNG DIFFUSION CAPACITY (DLCO) LUNG DIFFUSION CAPACITY (DLCO) PFT Routine Interstitial pulmonary disease (HCC) 1 Occurrences starting 06/03/2024 until 07/03/2025 [facility] Comment on above: 1 Occurrences starti ng 06/03/2024 until 07/03/2025 End: 11-22-2024 LUNG VOLUMES LUNG VOLUMES PFT Routine ILD (interstitial lung disease) (HCC) 1 Occurrences starting 10/24/2023 until 11/22/2024 [facility] Comment on above: 1 Occurrences starti ng 10/24/2023 until 11/22/2024 LUNG VOLUMES LUNG VOLUMES PFT Routine ILD (interstitial lung disease) (HCC) 01/25/2024 1:47 PM EDT [facility] Work Phone: Measurement of respiratory function [facility] Neutrophil cytoplasm ic Ab.classic [Units/volume] in Serum [facility] NM Heart Views W str ess and W radionuclide IV [facility] End: 11-22-2024 OXIMETRY WITH AMBULATION OXIMETRY WITH AMBULATION PFT Routine Pulmonary HTN (HCC) ILD (interstitial lung disease) (HCC) 1 Occurrences starting 10/24/2023 until 11/22/2024 [facility] Comment on above: 1 Occurrences starti ng 10/24/2023 until 11/22/2024 End: 07-03-2025 OXIMETRY WITH AMBULATION OXIMETRY WITH AMBULATION PFT Routine Interstitial pulmonary disease (HCC) 1 Occurrences starting 06/03/2024 until 07/03/2025 [facility] Comment on above: 1 Occurrences starti ng 06/03/2024 until 07/03/2025 OXYGEN ORDER CHANGES OXYGEN ORDE R CHANGES Procedures Routine Acute respiratory failure with hypoxia (HCC) Ordered: 10/01/2024 [facility] Work Phone: Comment on above: Ordered: 10/01/2024 P-ANCA measurement [facility] Patient Education [facility] Work Phone: Patient referral [facility] Work Phone: Polysomnography [facility] Pulmonary rehabilita tion pro CONSULT PULMONARY REHABILITATION PROGRAM Procedures Routine Interstitial pulmonary disease (HCC) Ordered: 06/03/2024 [facility] Comment on above: Ordered: 06/03/2024 End: 11-22-2024 SIX MINUTE WALK SIX MINUTE WALK PFT Routine ILD (interstitial lung disease) (HCC) 1 Occurrences starting 10/24/2023 until 11/22/2024 [facility] Comment on above: 1 Occurrences starti ng 10/24/2023 until 11/22/2024 SIX MINUTE WALK SIX MINUTE WALK PFT Routine ILD (interstitial lung disease) (HCC) 04/09/2024 2:27 PM EST [facility] Work Phone: End: 07-03-2025 SIX MINUTE WALK SIX MINUTE WALK PFT Routine Interstitial pulmonary disease (HCC) 1 Occurrences starting 06/03/2024 until 07/03/2025 [facility] Comment on above: 1 Occurrences starti ng 06/03/2024 until 07/03/2025 End: 11-22-2024 SPIROMETRY - BASELINE AND POST DILATOR SPIROMETRY - BASELINE AND POST DILATOR PFT Routine ILD (interstitial lung disease) (HCC) 1 Occurrences starting 10/24/2023 until 11/22/2024 [facility] Comment on above: 1 Occurrences starti ng 10/24/2023 until 11/22/2024 SPIROMETRY - BASELIN E AND POST DILATOR SPIROMETRY - BASELINE AND POST DILATOR PFT Routine ILD (interstitial lung disease) ([facility]) 01/25/2024 1:47 PM EDT [facility] Work Phone: End: 07-03-2025 SPIROMETRY - BASELINE AND POST DILATOR SPIROMETRY - BASELINE AND POST DILATOR PFT Routine Interstitial pulmonary disease (HCC) 1 Occurrences starting 06/03/2024 until 07/03/2025 [facility] Comment on above: 1 Occurrences starti ng 06/03/2024 until 07/03/2025 Immunizations Immunization Date Immunization Notes Care Provider Fa ken 04-19-2009 tetanus toxoid, redu yue diphtheria toxoid, and acellular pertussis vaccine, adsorbed Arie Lee MD Work Phone: [facility] Work Phone: Payers Date Payer Category Payer Self-pay [id number] 2023 Medicare (Managed Care) ELIDA Chanel [facility] [employer] O [id number] 2023 Unknown ELIDA CRUZ [employer] ADVANTAGE O [id number] 2023-Present [phone] [address] [place] [address] [facility] [id number] 2023 Medicare [id number] Medicare MEDICARE PART A B [id number] Unknown [id number] Unknown COMMERCIAL OTHER [id number] Unknown [id number] 2.16840.1.766271.3.579. 2.462 Unknown [id number] 2.16840.1.658670.3.579. 2.462 Unknown [id number] 2.16840.1.227088.3.579. 2.462 Unknown [id number] 2.16840.1.604093.3.579. 2.462 Unknown [id number] 2.16840.1.871166.3.579. 2.462 Unknown [id number] 2.16.840.1.311592.3.579. 2.462 Unknown [id number] 2.16.840.1.776575.3.579. 2.462 Unknown [id number] 2.16.840.1.014763.3.579. 2.462 Unknown [id number] 2.16.840.1.223959.3.579. 2.462 Unknown [id number] 2.16.840.1.576462.3.579. 2.462 Unknown [id number] 2.16.840.1.631794.3.579. 2.462 Unknown [id number] 2.16.840.1.459745.3.579. 2.462 Unknown [id number] 2.16.840.1.757453.3.579. 2.462 Unknown [id number] 2.16.840.1.585087.3.579. 2.462 Unknown [id number] 2.16.840.1.031209.3.579. 2.462 Unknown [id number] 2.16.840.1.748783.3.579. 2.462 Unknown [id number] 2.16.840.1.353009.3.579. 2.462 Unknown [id number] 2.16.840.1.660874.3.579. 2.462 Unknown [id number] 2.16.840.1.610497.3.579. 2.462 Unknown [id number] 2.16.840.1.133569.3.579. 2.462 Unknown [id number] 2.16.840.1.229710.3.579. 2.462 Unknown [id number] 2.16.840.1.140395.3.579. 2.462 Unknown [id number] 2.16.840.1.336244.3.579. 2.462 Unknown [id number] 2.16.840.1.488331.3.579. 2.462 Unknown [id number] 2.16.840.1.673424.3.579. 2.462 Social History Date Type Detail Facility Tobacco smoking stat us NMIS Unknown if ever smoked [facility] Work Phone: Start: 1955 Sex Assigned At Female [facility] Start: 09-21-2022 End: 05-09-2023 Tobacco smoking status NHIS Unknown if ever smoked [facility] Start: 01-11-2022 End: 06-03-2024 Alcohol intake Current non-drinker of alcohol (finding) [facility] Start: 10-02-2023 End: 06-03-2024 History of Social function [facility] Start: 10-02-2023 End: 06-03-2024 Area Deprivation Index [facility] Work Phone: National Score (1-10 0), lower number is lower risk 59 [facility] Start: 1955 Sex Assigned At Not on file [facility] Start: 06-28-2024 End: 06-28-2024 Tobacco smoking status NHIS Ex-smoker (finding) [facility] Start: 07-31-2024 End: 09-10-2024 Sex Female (finding) [facility] NEGATED: Highlighted row [facility] Goals Date Patient Goal Desired Activity /State Functional Status Date Assessment Result Facility 07-06-2024 Functional status Activity Abili ty With Assist of 1 [facility] Work Phone: 07-06-2024 Functional status Ambulates [facility] Work Phone: 10-07-2023 Are you deaf, or do you have serious difficulty hearing No 10/07/2023 2:19 PM Hoda Morton RN No [facility] 10-07-2023 Are you blind, or do you have serious difficulty seeing, even when wearing glasses No 10/07/2023 2:19 PM Hoda Morton RN No [facility] 10-07-2023 Do you have serious difficulty walking or climbing stairs No 10/07/2023 2:19 PM EDT Hoda Cole RN No [facility] 10-07-2023 Do you have difficul ty dressing or bathing No 10/07/2023 2:19 PM EDT Hoda Cole RN No [facility] 10-07-2023 Because of a physica l, mental, or emotional condition, do you have difficulty doing errands alone such as visiting a physician's office or shopping No 10/07/2023 2:19 PM EDT Hoda Cole RN No [facility] 09-27-2022 Functional status Chair [facility] Work Phone: Mental Status Date Assessment Result Facility 07-06-2024 Cognitive function Voice/Name [facility] Work Phone: 10-07-2023 Because of a physica l, mental, or emotional condition, do you have serious difficulty concentrating, remembering, or making decisions No 10/07/2023 2:19 PM EDT Hoda Cole RN No [facility] 01-09-2023 Cognitive function Voice/Name;To [facility] Work Phone: 09-27-2022 Cognitive function Voice/Name [facility] Work Phone: Clinical Notes 09-21-2022 to 11-06-2024 Bassem Case APRN.[employer] - 11/06/2024 2:00 PM EDT Note Date & Type Note Facility 11-06-2024 History of Present illness Narrative Chronic Care Clinic/CHF/Pulmonary Hypertension Clinc Chief Complaint Exertional dyspnea Medication Monitoring -High Risk Medication-Tyvaso HISTORY OF PRESENT ILLNESS: Makenna Andre is a pleasant 68 year old female who is known to this clinic and presents as follow up for PH-ILD. Patient last seen back on 09/2023, in the interim she endorses doing very well. She started pulmonary rehab which she has done for several weeks now and has noticed some significant improvement- doing just amazing! They increase her O2 to up to 10-12LNC for her to complete her exercises, but since its initiation she feels it is helping significantly. She ambulated from the waiting room to the exam room basically using the wheelchair only to carry her purse and her oxygen tank She was a little dyspneic but she did very well Currently today in the clinic she is at 6 L She is in good spirits patient iand s not volume overloaded She has no peripheral edema on her lower extremities face or arms She denies chest pain palpitations nausea lightheadedness diarrhea or increased peripheral edema chronic cough or headache She currently on Tyvaso 80mg QID with good tolerance and has noticed significant degree of improvement. Specifically she is able to perform activities longer and specifically improvement in activities of daily living. She denies dyspnea with routine ADLs or walking around the house. Longer distances and walking up flights of steps with mild dyspnea.She paces herself. Endorses low sodium diet. Wears 6LNC continuously with good compliance Wears CPAP qHS with great compliance and clinical benefit. Her blood pressure was well-controlled on lisinopril and Cardizem It should be noted that the patient has had a weight loss since May of this year her weight was 147 pounds -today in the clinic she is 135 pounds Patient is attributing a lot of this weight loss to no longer retaining water PAST MEDICAL HISTORY Diagnosis Date Allergic rhinitis, cause unspecified Essential hypertension, benign Family history of ischemic heart disease father age 50, brother age 42 Obesity, unspecified PAST SURGICAL HISTORY Procedure Laterality Date COLONOSCOPY FLX DX W/COLLJ SPEC WHEN PFRMD 11-01-12 PAST SURGICAL HISTORY OF 1992 REMOVAL OF BENIGN CYST-RIGHT SIDE OF NECK TONSILLECTOMY & ADENOIDECTOMY AGE 12/1992 FAMILY HISTORY Problem Relation Age of Onset Heart Father [place] - first age 40's, CVA age 50 Stroke Father CVA - first age 42, CVA age 50 Hypertension Mother Diabetes Mother Heart Brother age 41; also heavy etoh use Heart Brother stented age 42 Hypertension Brother Breast Cancer Maternal Aunt x2 Heart Paternal Uncle x2 Allergies Mother Cancer Mother pancreatic cancer Social History Tobacco Use Smoking status: Never Substance Use Topics Alcohol use: No Drug use: No ALLERGIES Allergen Reactions Darvocet-N 100 [Pro* Unknown numbness Penicillins Hives Last 2 Encounter Wt Readings: Date: Wt: 09/26/2024 66.7 kg (147 lb) 06/03/2024 66.7 kg (147 lb) General: Well appearing, appears stated age and in no acute distress. Psych: Normal Affect Eyes: No subconjunctival hemorrhage Neck: no jugular venous distention Lymph: Lungs: no wheezing -on 6 L NC Heart: regular rhythm Abdomen: soft Extremities: No peripheral edema Neuro: Grossly nonfocal LABS: TSH 1.290 12/09/2012 Triglyceride 84 08/13/2013 HDL Cholesterol 46 08/13/2013 LDL Chol, Claritza 121 08/13/2013 Cholesterol, Total 184 08/13/2013 CBC: Hemoglobin (g/dL) Date Value 10/05/2023 13.6 Hematocrit (%) Date Value 10/05/2023 43.3 WBC (k/uL) Date Value 10/05/2023 10.87 Platelet Count (k/uL) Date Value 10/05/2023 334 BMP: Potassium (mmol/L) Date Value 10/05/2023 4.2 08/13/2013 3.5 Sodium (mmol/L) Date Value 10/05/2023 136 08/13/2013 141 Chloride (mmol/L) Date Value 10/05/2023 94 08/13/2013 100 CO2 (mmol/L) Date Value 10/05/2023 24 08/13/2013 27 Creatinine (mg/dL) Date Value 10/05/2023 0.61 08/13/2013 0.58 BUN (mg/dL) Date Value 10/05/2023 19 08/13/2013 18 Anion Gap (mmol/L) Date Value 10/05/2023 18 08/13/2013 14 Calcium (mg/dL) Date Value 08/13/2013 9.7 Calcium, Total (mg/dL) Date Value 10/05/2023 9.8 ASSESSMENT - Precapillary PH in setting of extensive interstitial lung disease - 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 Currently on 80 mcg QID and ongoing monitoring - nasal saline for dry nose -Continue supplemental O2 at 5- 6LNC - Recommend continuation of Advair 500/50 BID and prn albuterol - Continue CPAP qHS given ongoing clinical benefit High Risk Medication (requiring serial testing, clinical monitoring/surveillance): Tyvaso DPI QID Followup in 4 months Electronically signed by Bassem Case APRN.CNS. Outpatient Counseling: I have personally spent 30 total minutes involved in the [id number] care of patient. Greater than 50% of the time was spent counseling and/or coordinating care for the patient, the nature of which is noted above. The health conditions of this patient carry a high risk of complications, morbidity, and/or mortality. documented in this encounter [facility] 11-06-2024 Note HNO ID: [id number] Author: BASSEM CASE APRN.CNS Service: ? Author Type: Nurse Specialist Type: Progress Notes Filed: 11/07/2024 09:49 Note Text: Chronic Care Clinic/CHF/Pulmonary Hypertension Clinc Chief Complaint Exertional dyspnea Medication Monitoring -High Risk Medication-Tyvaso HISTORY OF PRESENT ILLNESS: Makenna Andre is a pleasant 68 year old female who is known to this clinic and presents as follow up for PH-ILD. Patient last seen back on 09/2023, in the interim she endorses doing very well. She started pulmonary rehab which she has done for several weeks now and has noticed some significant improvement- doing just amazing! They increase her O2 to up to 10-12LNC for her to complete her exercises, but since its initiation she feels it is helping significantly. She ambulated from the waiting room to the exam room basically using the wheelchair only to carry her purse and her oxygen tank She was a little dyspneic but she did very well Currently today in the clinic she is at 6 L She is in good spirits patient iand s not volume overloaded She has no peripheral edema on her lower extremities face or arms She denies chest pain palpitations nausea lightheadedness diarrhea or increased peripheral edema chronic cough or headache She currently on Tyvaso 80mg QID with good tolerance and has noticed significant degree of improvement. Specifically she is able to perform activities longer and specifically improvement in activities of daily living. She denies dyspnea with routine ADLs or walking around the house. Longer distances and walking up flights of steps with mild dyspnea.She paces herself. Endorses low sodium diet. Wears 6LNC continuously with good compliance Wears CPAP qHS with great compliance and clinical benefit. Her blood pressure was well-controlled on lisinopril and Cardizem It should be noted that the patient has had a weight loss since May of this year her weight was 147 pounds -today in the clinic she is 135 pounds Patient is attributing a lot of this weight loss to no longer retaining water PAST MEDICAL HISTORY Diagnosis Date Allergic rhinitis, cause unspecified Essential hypertension, benign Family history of ischemic heart disease father age 50, brother age 42 Obesity, unspecified PAST SURGICAL HISTORY Procedure Laterality Date COLONOSCOPY FLX DX W/COLLJ SPEC WHEN PFRMD 11-01-12 PAST SURGICAL HISTORY OF 1992 REMOVAL OF BENIGN CYST-RIGHT SIDE OF NECK TONSILLECTOMY AND ADENOIDECTOMY AGE 12/> 1992 FAMILY HISTORY Problem Relation Age of Onset Heart Father [place] - first age 40's, CVA age 50 Stroke Father CVA - first age 42, CVA age 50 Hypertension Mother Diabetes Mother Heart Brother age 41; also heavy etoh use Heart Brother stented age 42 Hypertension Brother Breast Cancer Maternal Aunt x2 Heart Paternal Uncle x2 Allergies Mother Cancer Mother pancreatic cancer Social History Tobacco Use Smoking status: Never Substance Use Topics Alcohol use: No Drug use: No ALLERGIES Allergen Reactions Darvocet-N 100 [Pro* Unknown numbness Penicillins Hives Last 2 Encounter Wt Readings: Date: Wt: 09/26/2024 66.7 kg (147 lb) 06/03/2024 66.7 kg (147 lb) General: Well appearing, appears stated age and in no acute distress. Psych: Normal Affect Eyes: No subconjunctival hemorrhage Neck: no jugular venous distention Lymph: Lungs: no wheezing -on 6 L NC Heart: regular rhythm Abdomen: soft Extremities: No peripheral edema Neuro: Grossly nonfocal LABS: TSH 1.290 12/09/2012 Triglyceride 84 08/13/2013 HDL Cholesterol 46 08/13/2013 LDL Chol, [place] 121 08/13/2013 Cholesterol, Total 184 08/13/2013 CBC: Hemoglobin (g/dL) Date Value 10/05/2023 13.6 Hematocrit (%) Date Value 10/05/2023 43.3 WBC (k/uL) Date Value 10/05/2023 10.87 Platelet Count (k/uL) Date Value 10/05/2023 334 BMP: Potassium (mmol/L) Date Value 10/05/2023 4.2 08/13/2013 3.5 Sodium (mmol/L) Date Value 10/05/2023 136 08/13/2013 141 Chloride (mmol/L) Date Value 10/05/2023 94 08/13/2013 100 CO2 (mmol/L) Date Value 10/05/2023 24 08/13/2013 27 Creatinine (mg/dL) Date Value 10/05/2023 0.61 08/13/2013 0.58 BUN (mg/dL) Date Value 10/05/2023 19 08/13/2013 18 Anion Gap (mmol/L) Date Value 10/05/2023 18 08/13/2013 14 Calcium (mg/dL) Date Value 08/13/2013 9.7 Calcium, Total (mg/dL) Date Value 10/05/2023 9.8 ASSESSMENT - Precapillary PH in setting of extensive interstitial lung disease - 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 [facility] 10-29-2024 Progress note [facility] 10-29-2024 Progress note Note Date/Time October 29, 2024 2:15pm [facility] [address] [place] [address] OFFICE VISIT Date of Service: 10/29/24 MR#: [id number] Acct: [id number] Name: MAKENNA ANDRE Rep #: [id number] : 1955 Provider: Dr. Chuck Wheatley MD Age/Sex: 68/F [place] [facility] [place] Status: Signed HPI HPI History of Present Illness Details: This lady with history of pulmonary hypertension, restrictive lung disease on 24-hour supplemental oxygen therapy, mild coronary artery disease and dyslipidemia is here for follow-up visit. She continues to have shortness of breath. Following at the pulmonary rehab. Denies any chest pains. No palpitations. No lightheadedness or dizziness. No syncope or presyncope. Intake Vital Signs 09/30/24 07:50 10/29/24 08:33 Height 5 ft 1 in 5 ft 1 in Weight: 138 lb BMI 26.0 BP 126/69 H Blood Pressure Location Lt brachial Position Sitting Respiration 20 H Pulse 98 Pulse Source NIBP Pulse Oximetry (%) 98 Oxygen Delivery Method nasal canula Oxygen Flow Rate (L/min) 6 Intake Visit Reasons: 6 M FU Copy Manager Required: No Accompanied by: Self Is patient in pain?: No Allergies Penicillins Allergy (Verified 10/29/24 13:47) Hives Medications ?Medication ?Instructions ?Recorded ?Confirmed ?Type levothyroxine 50 mcg tablet 50 mcg PO DAILY THYROID 10/29/24 History potassium chloride 20 mEq 20 meq PO BIDCM #30 tabs 08/1710/29/24 Rx tablet,extended release(part/cryst) (Klor-Con M) calcium 333 mg-vit D3 133 2 tab PO DAILY 01/03/2309/19 History unit-magnesium 133 mg-zinc 5 mg tablet (Nish Mag Zinc Plus D3) chlorpheniramine maleate 4 mg 4 mg PO Q4H PRN allergy symptoms 01/03/23 10/29/24 History tablet (ChlorTabs) chromium picolinate 200 mcg tablet 200 mcg PO DAILY 10/29/24 History echinacea 500 mg capsule 1,000 mg PO DAILY 01/03/23 0 10/29/24 History garlic 1,000 mg capsule 1,000 mg PO DAILY 01/03/23 0 10/29/24 History multivitamin (Daily Multi-Vitamin 1 tab PO DAILY 01/0310/29/24 History tablet) turmeric 400 mg capsule 400 mg PO DAILY 01/03/2309/19 History vitamin D3 25 mcg (1,000 unit)-vit 1 tab PO DAILY 02/1710/29/24 History K2 90 mcg disintegrating tablet (D3 Plus K2 Dots) vitamins A and D3 in cod liver oil 1 cap PO DAILY 0802/1710/29/24 History 1,250 unit-135 unit capsule (cod liver oil) aspirin 81 mg tablet,delayed 81 mg PO DAILY 02/05/23 0 10/29/24 History release fluticasone 500 mcg-salmeterol 50 1 inh inhalation BID #3 ea 11/09/23 10/29/24 Rx mcg/dose blistr powdr for inhalation (Wixela Inhub) pravastatin 20 mg tablet 20 mg PO QHS #30 tabs 10/29/24 Rx diltiazem HCl 360 mg 360 mg PO QDAY #90 caps 09/1810/29/24 Rx capsule,extended release 24 hr lisinopril 10 mg tablet 10 mg PO QDAY #90 tabs 06/0410/29/24 Rx cyanocobalamin (vitamin B-12) 1,000 mcg PO DAILY 06/2810/29/24 History 1,000 mcg capsule vitamin E 268 mg (400 unit) capsule 268 mg PO DAILY 10/29/24 History acetaminophen 650 mg 650 mg PO TID PAIN 10/29/24 10/29/24 History tablet,extended release beet root extract PO DAILY 10/29/24 History furosemide 40 mg tablet (Lasix) 40 mg PO QDAY 10/29/24 10/29/24 History treprostinil (Tyvaso DPI) 2 ea inhalation 4X/DAY 10/2910/29/24 History Ejection fraction %: 65 Have you fallen in the past year?: No PFSH Medical History (Updated 10/29/24 @ 14:[address] John Wheatley MD) Acute on chronic respiratory failure with hypoxemia CHRIS (obstructive sleep apnea) Coronary artery disease CHRIS and COPD overlap syndrome Abnormal stress test Restrictive lung disease 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 (chronic) Dyspnea on exertion Obesity Essential (primary) hypertension Pulmonary hypertension Daytime hypersomnia Arthritis Shortness of breath on exertion On home oxygen therapy Pneumonia History of edema Chronic respiratory failure with hypoxia CHF (congestive heart failure) Hypothyroid Surgical History History of left heart catheterization (~04/16/23) Hx of tonsillectomy History of excision of lesion Hx of left cataract extraction Hx of right cataract extraction History of right hip replacement Family History Father , 53 CVA (cerebral vascular accident) CAD (coronary artery disease) Myocardial infarction Brother Myocardial infarction CAD (coronary artery disease) Brother CAD (coronary artery disease) stent Brother CAD (coronary artery disease) stent Social History household members: spouse housing: house Smoking Status: Former smoker how long ago did patient quit smokin plus years ago alcohol intake: current alcohol intake frequency: holidays/special occasions only substance use type: does not use caffeine: Yes Type: carbonated beverages Number of servings: 4 and coffee ROS Const Const: Positive for fatigue; Negative for weakness, headache(s) or weight gain ENT ENT: Negative for headache(s), dizziness, Nosebleed/epistaxis or balance problems Cardio Chest Pain: No Palpitations: No Edema: None Muscle aches with walking: None Resp Respiratory: Positive for SOB with activity and SOB at rest (chronic; [id number], following pulmonary); Negative for SOB orthopneaundefinedSOB lying down GI GI: Negative nausea, vomiting or heartburn Musc Musc: Negative for muscle aches/ myalgia, muscle weakness, joint pain or balanceproblems Neuro Neuro: Negative for dizziness, lightheadedness, near syncope, syncope, headache(s) or weakness Endo Endo: Positive for fatigue Psych Psych: Positive for depression (due to limitations) Cardiology Exam Const Appearance: comfortable and no acute distress Nutritional Appearance: well nourished Neck Neck: no JVD Carotids: Negative bruit Chest Auscultation: Bilateral: Clear to Auscultation Cardio Rate: regular rate Rhythm: regular rhythm Heart sounds: S1 normal and S2 normal Neuro General: patient alert, patient awake and patient oriented x3 Extremities Lower Extremity Edema: None: Bilateral Supplemental Info Supplemental Information CARDIAC CATHETERIZATION 10/04/23: Determinations Result Units Rhythm A.Fib Inspired fraction of oxygen 44.00 % Nasal cannula Flow 6.00 L/min SpO2 98.00 % Systolic BP 122.00 mmHg Diastolic BP 59.00 mmHg Mean BP 80.00 mmHg Heart Rate 80.00 bpm Height 154.90 cm Weight 71.40 Kg Body surface area 1.71 m2 Body mass index 29.76 kg/m2 Right Atrial Pressure (mean) 1.00 mmHg Right Atrial Pressure (V-wave) 10.00 mmHg Right Ventricular Systolic Pressure 62.00 mmHg Right Ventricular Diastolic Pressure 0.00 mmHg Systolic pulmonary artery pressure 62.00 mmHg Mean pulmonary artery pressure 39.00 mmHg Diastolic pulmonary artery pressure 28.00 mmHg Pulmonary artery pulse pressure 34.00 mmHg Pulmonary artery occlusion pressure (mean) 2.00 mmHg Pulmonary artery occlusion pressure (end-expiration) mid a wave 5.00 mmHg Pulmonary artery occlusion pressure (end-expiration) peak v wave NA Diastolic pulmonary gradient 23.00 mmHg Transpulmonary gradient 34.00 mmHg Pulmonary artery capacitance 1.99 mL/mmHg Cardiac output (thermodilution) 5.40 L/min Cardiac index (thermodilution) 3.17 L/min/m2 Cardiac output (indirect LEV) 4.42 L/min Cardiac index (indirect LEV) 2.59 L/min/m2 Systemic vascular resistance 1170.37 dynes/sec/cm5 Stroke volume 67.50 mL Stroke volume index 39.57 mL/m2 Right ventricular stroke work index 20.45 g*m/m2 Pulmonary vascular resistance 6.30 Wood Units Hemoglobin (mixed venous) 14.20 g/dL Arterial oxyhemoglobin 98.00 % Mixed venous oxyhemoglobin 73.00 % Lactic acid (arterial) NA mmol/L Abbreviated version Right Atrial Pressure (mean) 1.00 mmHg Mean pulmonary artery pressure 39.00 mmHg Pulmonary artery occlusion pressure (end-expiration) mid a wave 5.00 mmHg Cardiac index (thermodilution) 3.17 L/min/m2 Pulmonary vascular resistance 6.30 Wood Units Mixed venous oxyhemoglobin 73.00 % Saturations SaO2 PAWP NA % SaO2 PA 73.00 % SaO2 RA 74.00 % SpO2 98.00 % Vasoreactive Challenge (Inhaled NO 40ppm/5 mins) Systolic pulmonary artery pressure 61.00 mmHg Mean pulmonary artery pressure 40.00 mmHg Diastolic pulmonary artery pressure 30.00 mmHg Pulmonary artery pulse pressure 31.00 mmHg Pulmonary artery occlusion pressure (mean) 2.00 mmHg Pulmonary artery occlusion pressure (end-expiration) mid a wave 5.00 mmHg Pulmonary artery occlusion pressure (end-expiration) peak v wave NA Cardiac output (thermodilution) 5.60 L/min Cardiac index (thermodilution) 3.28 L/min/m2 Pulmonary vascular resistance 6.25 Wood Unit Echocardiogram 10/03/2023: Conclusions: -Technically difficult exam due to body habitus. -Exam indication: Re-evaluation of known pulmonary hypertension (to guide therapy) -The left ventricle is normal in size. Left ventricular systolic function is normal. EF =65 +/- 5% (2D biplane). Definity contrast used for endocardial border detection. Normal left ventricular diastolic function. -The right ventricle is mildly dilated. RV appears mildly dilated in limited acoustic views. RV systolic tissue Doppler velocity is 10.0 cm/s. -There are no significant valvular abnormalities. -There is no pericardial effusion. -No evidence of pulmonary hypertension by Doppler or appearance of the right-sided chambers. -The patient has not had a prior CC echocardiographic exam for comparison. Echocardiogram 09/21/2022: Interpretation Summary The estimated ejection fraction is 60 %. No evidence for diastolic dysfunction. Mildly dilated right ventricle. Mildly decreased right ventricular systolic function PULMONARY FUNCTION TEST 01/02/2023: INTERPRETATION: Forced expiration spirometry demonstrates no evidence of a large airways obstructive ventilatory defect. There was no significant response to aerosolized bronchodilators. Spirograms are of good quality and plateau normally. Body plethysmography was performed and revealed a decreased TLC to 2.16 L, 47% of predicted, indicative of a severe restrictive ventilatory impairment. Diffusing capacity by single breath CO is reduced at 30% of predicted. IMPRESSION: Severe restrictive ventilatory impairment with symmetric reduction in diffusing capacity. STRESS TEST 02/22/2023: Impression: 1. Pharmacologic (Regadenoson) evaluation 2. Peak pharmacologic ECG with no ischemic changes. 3. There were no cardiac dysrhythmias pretest, during pharmacologic infusion, or recovery. 5. Small apical and septal reversible perfusion defect suggestive of mild ischemia. 6. The gated Cardiolite study reports an LVEF of 89%. CARDIAC CATHETERIZATION 04/16/2023: CONCLUSIONS 50% Mid LAD RECOMMENDATIONS Risk factor modification Medical therapy CORONARY ANGIOGRAPHY DOMINANCE: Right Dominant LEFT MAIN: Angiographically normal LEFT ANTERIOR DESCENDING ARTERY: LAD: Tubular 50% Mid lesion in LAD CIRCUMFLEX ARTERY: Angiographically normal RIGHT CORONARY ARTERY: Angiographically normal Chest CTA w/wo Contrast 06/28/2024: FINDINGS: Hardware: None. Scattered mildly prominent mediastinal lymph nodes are seen worsening interlobular septal thickening and multifocal bilateral airspace consolidations with fibrotic change in innumerable intrapulmonary cysts. Thoracic Aorta: No thoracic aortic aneurysm or dissection. Pulmonary Vessels: No evidence of acute pulmonary emboli through the major subsegmental branches. Most Proximal Level of Embolus (if embolus present): N/A Lungs and Airways: The lungs are normally expanded and clear. Pleura: No pleural effusion. No pneumothorax. Nodularity of the bilateral adrenal glands. Clinical follow-up is advised. Bones: Bone windows are unremarkable. CT/CTA Chest W/WO Contrast IMPRESSION: No acute thromboembolic disease. Worsening pleural-parenchymal disease as described above. Mediastinal lymphadenopathy also noted. Nodularity of the bilateral adrenal glands. Clinical follow-up is advised. CHEST CTA 11/08/2022: FINDINGS: Normal enhancement of the main pulmonary artery and right and left pulmonary arteries. Normal enhancement of the bilateral peripheral pulmonary arteries. There is no demonstrated pulmonary embolism. Normal thoracic aorta and visualized great vessels. There is no demonstrated aortic dissection. Normal heart and pericardium. Normal mediastinum. Normal hilar regions. Scattered mediastinal lymph nodes similar compared to prior exam. Normal visualized trachea and bronchi. The lungs are well expanded. Scattered prominent interstitial markings with mild areas of septal thickening throughout the lung parenchyma consistent with likely COPD related changes and interstitial edema. Mild scattered areas of likely alveolar edema are also noted. Normal pleura. Normal chest wall structures. Normal osseous structures. Normal visualized upper abdomen. IMPRESSION: No evidence of pulmonary embolism or aortic dissection. COPD related changes with prominent interstitium consistent with underlying interstitial edema and scattered alveolar edema in the cardiogenic setting, clinically correlate. Assessment and Plan Assessment and Plan (1) Coronary artery disease: Status: Chronic Plan: 50% LAD disease noted on coronary angiography. Aspirin. Risk factor modification. (2) Dyspnea on exertion: Status: Chronic Plan: Secondary to restrictive lung disease and pulmonary hypertension. Pulmonology following. (3) 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 (chronic): Status: Chronic Plan: Impaired right ventricular systolic function with dilated right ventricle. Continue furosemide. ACEI. (4) Essential (primary) hypertension: Status: Chronic Plan: Blood pressure mildly above goal. Increase diltiazem CD to 360 mg daily. (5) Pulmonary hypertension: Status: Chronic Plan: Interstitial lung disease. Continue to manage as per pulmonology. On diltiazem. Increase dose to 420 mg daily. (6) Restrictive lung disease: Status: Chronic Plan: As per pulmonology. (7) Chronic respiratory failure with hypoxia: Status: Chronic Plan: Secondary to restrictive lung disease. On ambulatory oxygen therapy. Continue following as per pulmonary. (8) Dyslipidemia: Status: Chronic Plan: Pravastatin. Plan Details Follow Up: 6 Months Coding Level of Care Code Off vis,est,level 4 Diagnoses Coronary artery disease I25.10 Dyspnea on exertion R06.09 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 (chronic) I27.81 Essential (primary) hypertension I10 Pulmonary hypertension I27.20 Restrictive lung disease J98.4 Chronic respiratory failure with hypoxia J96.11 Dyslipidemia E78.5 Coding Level of Care Code Off vis,est,level 4 Diagnoses Coronary artery disease I25.10 Dyspnea on exertion R06.09 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 (chronic) I27.81 Essential (primary) hypertension I10 Pulmonary hypertension I27.20 Restrictive lung disease J98.4 Chronic respiratory failure with hypoxia J96.11 Dyslipidemia E78.5 Clinical Quality Measures Falls Risk Screening/Assistive Devices Have you fallen in the past year?: No Cardiac Ejection fraction %: 65 10/29/24 1415 <Electronically signed by John Wheatley MD> Date _ John Wheatley MD Cosigner Signature: Date (if applicable) CC: Dr. Hoda Del Rosario MD ~ [facility] Work Phone: 1(852) 147-143305-27-2025 Telephone encounter Note* Telephone Encounter - Camila Desai RN - 10/21/2024 2:23 PM EDT Requesting order for continued follow up with the [facility]/chronic care clinic [facility]05-27-2025 Miscellaneous Notes* Telephone Encounter - Camila Dseai RN - 10/21/2024 2:23 PM EDT Requesting order for continued follow up with the [facility]chronic care clinic [facility] Telephone encounter Note * Telephone Encounter - Ifeoma Coy - 10/01/2024 1:22 PM EDT O2 order faxed to [facility]. Ifeoma Coy [facility]05-07-2025 Miscellaneous Notes* Telephone Encounter - Ifeoma Coy - 10/01/2024 1:22 PM EDT O2 order faxed to [facility]. Ifeoma Coy * Telephone Encounter - Ifeoma Coy - 09/30/2024 11:23 AM EDT The correct order template is below. Ifeoma Coy * Telephone Encounter - Ifeoma Coy - 09/30/2024 11:22 AM EDT Images from the original note were not included. Message Received: Today Amol Godwin MD Gallimore, Gretchen; Leatha [facility] Admin Pool Please AC Previous Messages ----- Message ----- From: Ifeoma Coy Sent: 09/30/2024 8:34 AM EDT To: Amol Godwin MD; [facility] Admin Pool That's the [facility] DME supply order. I can help you this morning if you'd like. gg ----- Message ----- From: Amol Godwin MD Sent: 09/30/2024 7:49 AM EDT To: Ifeoma Coy; [facility] Admin Pool Thank you for responding, Ifeoma needed help with getting her set up with humidified O2. She doesn't have this at home. How do we go about ordering this again? AC ----- Message ----- From: Ifeoma Coy Sent: 09/29/2024 3:37 PM EDT To: Amol Godwin MD; [facility] Admin Pool AC- It isn't clear why this was sent to the admin pool. Help please. Thanks, gg ----- Message ----- From: Amol Godwin MD Sent: 09/29/2024 3:25 PM EDT To: Bassem Case APRN.CNS; * [facility] Telephone encounter Note * Telephone Encounter - Bassem Case APRN.CNS - 09/30/2024 1:38 PM EDT Phoned the patient this afternoon at the office visit on 09/26/2024 Dr. Godwin had prescribed an increase in the Tyvaso dosage to 80 mcg 4 times daily. In order to achieve this dose the patient will need to use a 64 mcg plus a 16 mcg cartridge with each dose in order to equal 80 mcg. I called [employer] send the 16 mcg titration kit to the patient in order to be able to achieve this dose and patie nt understands how she she is to perform each individual treatment using 2 cartridges She has a follow-up appointment scheduled with me on 11/06/2024 [facility]05-06-2025 Miscellaneous Notes* Telephone Encounter - Bassem Case APRN.CNS - 09/30/2024 1:38 PM EDT Phoned the patient this afternoon at the office visit on 09/26/2024 Dr. Godwin had prescribed an increase in the Tyvaso dosage to 80 mcg 4 times daily. In order to achieve this dose the patient will need to use a 64 mcg plus a 16 mcg cartridge with each dose in order to equal 80 mcg. I called [employer] send the 16 mcg titration kit to the patient in order to be able to achieve this dose and patie nt understands how she she is to perform each individual treatment using 2 cartridges She has a follow-up appointment scheduled with me on 11/06/2024 [facility] Telephone encounter Note * Telephone Encounter - Ifeoma Coy - 09/30/2024 11:23 AM EDT The correct order template is below. Ifeoma Coy [facility]05-06-2025 Telephone encounter Note* Telephone Encounter - Ifeoma Coy - 09/30/2024 11:22 AM EDT Images from the original note were not included. Message Received: Today Amol Godwin MD Gallimore, Gretchen; Leatha [facility] Admin Pool Please AC Previous Messages ----- Message ----- From: Ifeoma Coy Sent: 09/30/2024 8:34 AM EDT To: Amol Godwin MD; [facility] Admin Pool That's the [facility] DME supply order. I can help you this morning if you'd like. gg ----- Message ----- From: Amol Godwin MD Sent: 09/30/2024 7:49 AM EDT To: Ifeoma Coy; [facility] Quantine Pool Thank you for responding, Ifeoma needed help with getting her set up with humidified O2. She doesn't have this at home. How do we go about ordering this again? AC ----- Message ----- From: Ifeoma Coy Sent: 09/29/2024 3:37 PM EDT To: Amol Godwin MD; [facility] Admin Pool AC- It isn't clear why this was sent to the admin pool. Help please. Thanks, nidia ----- Message ----- From: Amol Godwin MD Sent: 09/29/2024 3:25 PM EDT To: Bassem Case APRN.[employer]; * [facility]05-02-2025 NoteHNO ID: [id number] Author: AMOL GODWIN MD Service: ? Author Type: Physician Type: Progress Notes Filed: 09/29/2024 15:25 Note Text: Patient Name: Makenna Andre PRIMARY CARE PHYSICIAN: Hoda Del Rosario MD Date of visit: September 26, 2024 COMMUNICATION WILL BE SENT VIA SHARED MEDICAL RECORDS OR US MAIL. Subjective: Makenna Andre is a 68 year old female who is known to this clinic and presents as follow up for PH-ILD. Patient last seen back on 09/2023, in the interim she endorses doing relatively well. She started pulmonary rehab in which she has done a few sessions and has noticed some significant improvement. They increase her O2 to up to 12LNC for her to complete her exercises, but since its initiation she feels it is helping significantly. She currently on Tyvaso 64 mcg QID with good tolerance and has noticed some degree of improvement, specifically she is able to perform activities longer and specifically improvement in FC. She denies dyspnea with routine ADLs or walking around the house. Longer distances and walking up flights of steps. Denies chest pain, minimal coughing, palpitations, fevers, chills, NS, or pedal edema. Endorses low sodium diet. Wears 6LNC continuously with good compliance, but states this isn't humidified and has been dealing with blood noses. Wears CPAP qHS with great compliance and clinical benefit. In review (Documentation from prior appt on 09/2023): She never grew up on farm. She owns inside cat/dog (pug/bulldog). Denies birds at this time. She did have a bird, cockateel for about 6 years over 28 years ago. Denies any bird exposures, rodent manifestations, bats exposures, jacuzzi, or mold in the house. 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 + dust exposure in which she frequently blew black out of her nose. Denies any unusual hobbies. Had remote cigarette use predominanly socially 3 cigarettes/week, last cigarette was > 40 years ago. Denies drug use, ETOH abuse (occasional social use). Has been on statin for years. Has no personal hx of AI. Family hx of lupus (cousins). + arthritis involving hands. PMHx: PAST MEDICAL HISTORY Diagnosis Date Allergic rhinitis, cause unspecified Essential hypertension, benign Family history of ischemic heart disease father age 50, brother age 42 Obesity, unspecified MEDICATIONS: TYVASO DPI 64 mcg dry powder inhaler Inhale 1 puff as instructed four times daily. fluticasone-salmeterol (ADVAIR DISKUS) 500-50 mcg/dose dsdv Inhale 1 Puff as instructed two times a day. Rinse and gargle mouth with water after each use. albuterol HFA (PROVENTIL HFA, VENTOLIN HFA) 90 mcg/actuation inhaler Inhale 2 Puffs as instructed every 6 hours as needed for wheezing/shortness of breath. RED BEET ROOT-SOUR CANNON EXT ORAL Take by mouth. OXYGEN, HOME THERAPY, Inhale 6-10 L/min as instructed continuous. dilTIAZem LA (CARDIZEM LA) 240 mg 24 hr tablet Take 240 mg by mouth once daily. acetaminophen (TYLENOL ARTHRITIS PAIN) 650 mg CR tablet Take 1 tablet by mouth every 8 hours as needed for pain. cyanocobalamin (VITAMIN B-12) 1,000 mcg tab Take 1,000 mcg by mouth once daily. Chromium Picolinate 200 mcg tab Take 1 tablet by mouth once daily. vitamin E, dl,tocopheryl acet, (VITAMIN E, DL, ACETATE,) 180 mg (400 unit) capsule Take 1 capsule by mouth once daily. Glucosamine-Chondroitin (OSTEO BI-FLEX) 250-200 mg tab Take 2 tablets by mouth once daily. potassium chloride ER (KLOR-CON) 20 mEq tablet Take 1 tablet by mouth once daily. calcium carb-D3-mag ox-zinc ox (NISH MAG ZINC PLUS D3) 333 mg-133 unit -133 mg-5 mg tab Take 1 tablet by mouth once daily. levothyroxine (SYNTHROID) 50 mcg tablet Take 1 tablet by mouth daily before breakfast. pravastatin (PRAVACHOL) 20 mg tablet Take 1 tablet by mouth once daily. turmeric root extract 500 mg cap Take 1 capsule by mouth once daily. vit A and D3 in cod liver oil 1,250-135 unit cap Take 1 capsule by mouth once daily. furosemide (LASIX) 40 mg tablet Take 40 mg by mouth once daily. Echinacea 500 mg cap Take 1 capsule by mouth two times a day. lisinopril 10 mg tablet Take 1 tablet by mouth once daily. Cholecalciferol, Vitamin D3, 2,000 unit cap Take 1 tablet by mouth once daily. vitamin A-ascorbic acid-vitamin E-minerals (OCUVITE) Tab Take 1 tablet by mouth once daily. GCT-Mobwdormn-Jwmjjcgzgpgvu (ALLERGY SINUS PE) 2-5-325 mg ORAL Tab Take by mouth as needed. GARLIC 1,000 MG CAP Take one tablet daily. aspirin(ADULT LOW DOSE ASPIRIN 81 MG TAB, DELAYED RELEASE) Take one(1) tablet daily. multivitamins(DAILY MULTIVITAMIN TAB) Take one(1) tablet daily. Allergies: Darvocet-N 100 [Propoxyphene N-Acetaminophen] and Penicillins PHYSICAL EXAM: BP 136/53 Pulse 110 Temp (Src) 97.8 (Temporal) Resp 16 Ht 5' 2 (1.58m) Wt 147 lb (66.7kg) SpO (more content not included)...[facility]05-02-2025 History of Present illness Narrative* Amol Godwin MD - 09/26/2024 2:36 PM EDT Images from the original note were not included. Patient Name: Makenna Andre PRIMARY CARE PHYSICIAN: Hoda Del Rosario MD Date of visit: September 26, 2024 COMMUNICATION WILL BE SENT VIA SHARED MEDICAL RECORDS OR US MAIL. Subjective: Makenna Andre is a 68 year old female who is known to this clinic and presents as follow up for PH-ILD. Patient last seen back on 09/2023, in the interim she endorses doing relatively well. She started pulmonary rehab in which she has done a few sessions and has noticed some significant improvement. They increase her O2 to up to 12LNC for her to complete her exercises, but since its initiation she feels it is helping significantly. She currently on Tyvaso 64 mcg QID with good tolerance and has noticed some degree of improvement, specifically she is able to perform activities longer and specifically improvement in FC. She denies dyspnea with routine ADLs or walking around the house. Longer distances and walking up flights of steps. Denies chest pain, minimal coughing, palpitations, fevers,chills, NS, or pedal edema. Endorses low sodium diet. Wears 6LNC continuously with good compliance, but states this isn't humidified and has been dealingwith blood noses. Wears CPAP qHS with great compliance and clinical benefit. In review (Documentation from prior appt on 09/2023): She never grew up on farm. She owns inside cat/dog (pug/bulldog). Denies birds at this time. She did have a bird, cockateel for about 6 years over 28 years ago. Denies any bird exposures, rodent manifestations, bats exposures, jacuzzi, or mold in the house. 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 + dust exposure in which she frequently blew black out of her nose. Denies any unusual hobbies. Had remote cigarette use predominanly socially 3 cigarettes/week, last cigarette was > 40 years ago. Denies drug use, ETOH abuse (occasional social use). Has been on statin for years. Has no personal hx of AI. Family hx of lupus (cousins). + arthritis involving hands. PMHx: PAST MEDICAL HISTORY Diagnosis Date Allergic rhinitis, cause unspecified Essential hypertension, benign Family history of ischemic heart disease father age 50, brother age 42 Obesity, unspecified MEDICATIONS: TYVASO DPI 64 mcg dry powder inhaler Inhale 1 puff as instructed four times daily. fluticasone-salmeterol (ADVAIR DISKUS) 500-50 mcg/dose dsdv Inhale 1 Puff as instructed two times aday. Rinse and gargle mouth with water after each use. albuterol HFA (PROVENTIL HFA, VENTOLIN HFA) 90 mcg/actuation inhaler Inhale 2 Puffs as instructed every 6 hours as needed for wheezing/shortness of breath. RED BEET ROOT-SOUR CANNON EXT ORAL Take by mouth. OXYGEN, HOME THERAPY, Inhale 6-10 L/min as instructed continuous. dilTIAZem LA (CARDIZEM LA) 240 mg 24 hr tablet Take 240 mg by mouth once daily. acetaminophen (TYLENOL ARTHRITIS PAIN) 650 mg CR tablet Take 1 tablet by mouth every 8 hours as needed for pain. cyanocobalamin (VITAMIN B-12) 1,000 mcg tab Take 1,000 mcg by mouth once daily. Chromium Picolinate 200 mcg tab Take 1 tablet by mouth once daily. vitamin E, dl,tocopheryl acet, (VITAMIN E, DL, ACETATE,) 180 mg (400 unit) capsule Take 1 capsule by mouth once daily. Glucosamine-Chondroitin (OSTEO BI-FLEX) 250-200 mg tab Take 2 tablets by mouth once daily. potassium chloride ER (KLOR-CON) 20 mEq tablet Take 1 tablet by mouth once daily. calcium carb-D3-mag ox-zinc ox (NISH MAG ZINC PLUS D3) 333 mg-133 unit -133 mg-5 mg tab Take 1 tablet by mouth once daily. levothyroxine (SYNTHROID) 50 mcg tablet Take 1 tablet by mouth daily before breakfast. pravastatin (PRAVACHOL) 20 mg tablet Take 1 tablet by mouth once daily. turmeric root extract 500 mg cap Take 1 capsule by mouth once daily. vit A and D3 in cod liver oil 1,250-135 unit cap Take 1 capsule by mouth once daily. furosemide (LASIX) 40 mg tablet Take 40 mg by mouth once daily. Echinacea 500 mg cap Take 1 capsule by mouth two times a day. lisinopril 10 mg tablet Take 1 tablet by mouth once daily. Cholecalciferol, Vitamin D3, 2,000 unit cap Take 1 tablet by mouth once daily. vitamin A-ascorbic acid-vitamin E-minerals (OCUVITE) Tab Take 1 tablet by mouth once daily. XXJ-Mrgwuzrda-Mmtnczkbwqfca (ALLERGY SINUS PE) 2-5-325 mg ORAL Tab Take by mouth as needed. GARLIC 1,000 MG CAP Take one tablet daily. aspirin(ADULT LOW DOSE ASPIRIN 81 MG TAB, DELAYED RELEASE) Take one(1) tablet daily. multivitamins(DAILY MULTIVITAMIN TAB) Take one(1) tablet daily. Allergies: Darvocet-N 100 [Propoxyphene N-Acetaminophen] and Penicillins PHYSICAL EXAM: BP 136/53 Pulse 110 Temp (Src) 97.8 (Temporal) Resp 16 Ht 5' 2 (1.58m) Wt 147 lb (66.7kg) SpO2 59% LMP 07/05/2009 BMI 26.88 kg/(m^2). Last Wt 09/26/24 66.7 kg (147 lb) 06/03/24 66.7 kg (147 lb) 04/29/24 71.7 kg (158 lb) 04/21/24 72.1 kg (158 lb 15.2 oz) General- nad, comfortable in general appearance Neck- supple, no obvious JVD CV- RRR, no M/G/R Resp-basilar crackles noted, breathing nonlabored Abd- +bs, soft, nt, nd Ext- mild UE clubbing, no cyanosis, or edema Psych- appropriate mood and affect Labs / Imaging / Diagnostic Studies: Diagnostic tests reviewed for today's visit, films/specimens were personally reviewed by me. CT Chest 04/2024 IMPRESSION: 1. Again seen are regions of groundglass attenuation and air-trapping within both lungs, suggesting reactive airways disease. There are associated regions of reticulation and traction bronchiectasis seen within both lungs, compatible with interstitial disease. Similar findings were seen on the prior examination. There are also regions of honeycombing within the lungs. Consider fibrotic NSIP as a leading differential consideration. 2. Mediastinal and bilateral hilar lymphadenopathy. 3. Stable heterogeneity of thyroid gland, with stable appearing nodules seen within each lobe of thyroid gland, when compared to the prior examination. 4. Stable wedge compression deformity involving the T12 vertebral body, when compared to the prior examination. CXR 10/05 IMPRESSION: 1. Stable appearing nonspecific mixed interstitial and airspace opacities in both lungs. VQ Scan 09/2023 IMPRESSION: No scintigraphic evidence of chronic thromboembolic disease. CT Chest 09/2023 IMPRESSION: 1. No CT evidence of pulmonary embolism. 2. Somewhat mosaic lung attenuation pattern which can be seen with small airways disease. 3. Scattered reticular and groundglass densities which may represent areas of inflammation/atelectasis. There may be a component component of chronic interstitial lung disease/pulmonary fibrosis. Follow-up CT may be helpful for further evaluation. 4. Mediastinal and hilar lymphadenopathy. TTE 04/2024 CONCLUSIONS: - Technically difficult exam due to suboptimal positioning. - Exam indication: Re-evaluation of known pulmonary hypertension (to guide therapy) - The left ventricle is normal in size. There is no left ventricular hypertrophy. Left ventricular systolic function is normal. EF = 66 5% (2D biplane) Normal left ventricular diastolic function. - The right ventricle is mildly dilated. Right ventricular systolic function is normal. - There is trace (trace - 1+) tricuspid valve regurgitation. - Estimated right ventricular systolic pressure is likely underestimated due to a weak or incomplete tricuspid regurgitation signal and is, at least, 52 mmHg consistent with moderate pulmonary hypertension. Estimated right atrial pressure is 3 mmHg based on IVC assessment. - Exam was compared with the prior CC echocardiographic exam performed on 10/03/2023. RVSP was not reported on previous study. There is no other significant change. TTE 09/2023 CONCLUSIONS: - Technically difficult exam due to body habitus. - Exam indication: Re-evaluation of known pulmonary hypertension (to guide therapy) - The left ventricle is normal in size. Left ventricular systolic function is normal. EF = 65 5% (2D biplane) Definity contrast used for endocardial border detection. Normal left ventricular diastolic function. - The right ventricle is mildly dilated. RV appears mildly dilated in limited accoustic views. RV systolic tissue Doppler velocity is 10.0 cm/s. - There are no significant valvular abnormalities. - There is no pericardial effusion. - No evidence of pulmonary hypertension by Doppler or appearance of the right-sided chambers. - The patient has not had a prior CC echocardiographic exam for comparison. RHC 09/2023 RHC determinations Determinations Result Units Rhythm A.Fib Inspired fraction of oxygen 44.00 % Nasal cannula Flow 6.00 L/min SpO2 98.00 % Systolic BP 122.00 mmHg Diastolic BP 59.00 mmHg Mean BP 80.00 mmHg Heart Rate 80.00 bpm Height 154.90 cm Weight 71.40 Kg Body surface area 1.71 m2 Body mass index 29.76 kg/m2 Right Atrial Pressure (mean) 1.00 mmHg Right Atrial Pressure (V-wave) 10.00 mmHg Right Ventricular Systolic Pressure 62.00 mmHg Right Ventricular Diastolic Pressure 0.00 mmHg Systolic pulmonary artery pressure 62.00 mmHg Mean pulmonary artery pressure 39.00 mmHg Diastolic pulmonary artery pressure 28.00 mmHg Pumonary artery pulse pressure 34.00 mmHg Pulmonary artery occlusion pressure (mean) 2.00 mmHg Pulmonary artery occlusion pressure (end-expiration) mid a wave 5.00 mmHg Pulmonary artery occlusion pressure (end-expiration) peak v wave NA Diastolic pulmonary gradient 23.00 mmHg Transpulmonary gradient 34.00 mmHg Pulmonary artery capacitance 1.99 mL/mmHg Cardiac output (thermodilution) 5.40 L/min Cardiac index (thermodilution) 3.17 L/min/m2 Cardiac output (indirect LEV) 4.42 L/min Cardiac index (indirect LEV) 2.59 L/min/m2 Systemic vascular resistance 1170.37 dynes/sec/cm5 Stroke volume 67.50 mL Stroke volume index 39.57 mL/m2 Right ventricular stroke work index 20.45 g*m/m2 Pulmonary vascular resistance 6.30 Wood Units Hemoglobin (mixed venous) 14.20 g/dL Arterial oxyhemoglobin 98.00 % Mixed venous oxyhemoglobin 73.00 % Lactic acid (arterial) NA mmol/L Abbreviated version Right Atrial Pressure (mean) 1.00 mmHg Mean pulmonary artery pressure 39.00 mmHg Pulmonary artery occlusion pressure (end-expiration) mid a wave 5.00 mmHg Cardiac index (thermodilution) 3.17 L/min/m2 Pulmonary vascular resistance 6.30 Wood Units Mixed venous oxyhemoglobin 73.00 % Saturations SaO2 PAWP NA % SaO2 PA 73.00 % SaO2 RA 74.00 % SpO2 98.00 % Vasoreactive Challenge (Inhaled NO 40ppm/5 mins) Systolic pulmonary artery pressure 61.00 mmHg Mean pulmonary artery pressure 40.00 mmHg Diastolic pulmonary artery pressure 30.00 mmHg Pumonary artery pulse pressure 31.00 mmHg Pulmonary artery occlusion pressure (mean) 2.00 mmHg Pulmonary artery occlusion pressure (end-expiration) mid a wave 5.00 mmHg Pulmonary artery occlusion pressure (end-expiration) peak v wave NA Cardiac output (thermodilution) 5.60 L/min Cardiac index (thermodilution) 3.28 L/min/m2 Pulmonary vascular resistance 6.25 Wood Unit WAVEFORMS: Right Atrial Pressure: Pulmonary Artery Pressure: PAWP: RV PullBack: Estimated Blood Loss: Scant Specimens: Mixed venous blood gases. Complications: None. Introducer removed without complications. Pressure applied for 10 minutes. No Bleeding. Condition of Patient After Procedure: stable Summary: Precapillary PH with preserved cardiac index. Negative nitric oxide response. Plan: F/U with Dr Godwin or Dr Julien in outpatient setting. Low salt in the diet. 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 Recommend initiation of Tyvaso DPI 16mcg QID ---> 64mcg as tolerated. 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 Currently on 64 mcg QID and recommend uptitration to 80 mcg QID andongoing monitoring of tolerance - Will add nasal saline for dry nose - Inquire about getting humidified O2 for her home supplemental O2 needs - Continue supplemental O2 at 6LNC - Recommend continuation of Advair 500/50 BID and prn albuterol - Continue CPAP qHS given ongoing clinical benefit and compliance - Defer ongoing ILD management to Dr Marin High Risk Medication (requiring serial testing, clinical monitoring/surveillance): Tyvaso DPI QID No follow-ups on file. Amol Godwin MD September 26, 2024 2:36 PM [facility] Telephone encounter Note * Telephone Encounter - Claudia Galeano RN - 09/11/2024 12:47 PM EDT Images from the original note were not included. [facility]04[facility] Miscellaneous Notes* Telephone Encounter - Claudia Galeano RN - 09/11/2024 12:47 PM EDT Images from the original note were not included. documented in this encounterMag[facility]02-13-[facility] History of Present illness Narrative* Bassem Case, [facility] - 07/10/2024 2:00 PM EST Images from the original note were not included. Chronic Care Clinic/CHF?Pulmonary Hypertension Clinic Chief Complaint Exertional Dyspnea High Risk Medication Monitoring (Tyvaso) Pulmonary Hypertension HISTORY OF PRESENT ILLNESS: Patient is a pleasant 68-year-old female who is here for PAH/ILD evaluation. Patient had a recent hospitalization at [facility] for acute on chronic hypoxic respiratory failure and volume overload. Evidently the patient was on Lasix while at home but had been tapering her dosage andthis resulted in volume overload and necessary hospitalization. She was hospitalized for a full week. Current dose of Lasix is 40mg daily. She is not certain whether or not it was precribed BID and Icannot see medical records from [place] in [facility]. Patient had undergone a right heart catheterization which with Dr. Godwin which was impressive for precapillary PAH the results of which are outlined below. Current treatment regimen for PAH includes Tyvaso DPI 64mcg qid, Since her hospitalization the patient was discharged on 3 L nasal cannula with Optimizer pendant and she has been using this continuously.She does endorse improvement in her breathing and symptoms overal since discharge from [facility] 4 days ago. Patient does experience some conversational dyspnea here in the clinic today. When she first arrived I placed the pulse oximeter on her finger and while speaking to me her O2 sat was 87 to 80% when not speaking her oxygen saturation sue within several minutes to about 94%. Patient tells me that she does have mild exertional dyspnea when walking around the house. Last night she was able to take ashower after she had turned her oxygen up to 8 L. She denies chest pain palpitations lightheadedness syncope or presyncopal episodes She denies orthopnea PND or cough she tells me that today was the first time she experienced some nausea after taking her Tyvaso She has never complained or experienced this before. I told the patient should she is continue to have this for the next day or so she needs to call us and we will either decrease her dosage of Tyvaso or place her on as needed Zofran. Physical exam the patient essentially appears euvolemic. She has no lower extremity edema no facialedema weight is stable she weight 141.4 pounds she tells me she normally weighs about 136 pounds out of her home scale she will continue to weigh herself daily she would notify us if she gains 2 or 3pounds in 3 days or 5 pounds in 1 week for diuretic adjustment. Blood pressure is a little soft at 87/53 but she is sitting quietly in the chair and totally asymptomatic she fully denies being lightheaded at home PAST MEDICAL HISTORY Diagnosis Date Allergic rhinitis, cause unspecified Essential hypertension, benign Family history of ischemic heart disease father age 50, brother age 42 Obesity, unspecified PAST SURGICAL HISTORY Procedure Laterality Date COLONOSCOPY FLX DX W/COLLJ SPEC WHEN PFRMD 11-01-12 PAST SURGICAL HISTORY OF 1992 REMOVAL OF BENIGN CYST-RIGHT SIDE OF NECK TONSILLECTOMY & ADENOIDECTOMY AGE 12/> 1992 FAMILY HISTORY Problem Relation Age of Onset Heart Father [place] - first age 40's, CVA age 50 Stroke Father CVA - first age 42, CVA age 50 Hypertension Mother Diabetes Mother Heart Brother age 41; also heavy etoh use Heart Brother stented age 42 Hypertension Brother Breast Cancer Maternal Aunt x2 Heart Paternal Uncle x2 Allergies Mother Cancer Mother pancreatic cancer Social History Tobacco Use Smoking status: Never Substance Use Topics Alcohol use: No Drug use: No ALLERGIES Allergen Reactions Darvocet-N 100 [Pro* Unknown numbness Penicillins Hives Last 2 Encounter Wt Readings: Date: Wt: 06/03/2024 66.7 kg (147 lb) 04/29/2024 71.7 kg (158 lb) General: appears stated age and in no acute distress. Psych: Normal Affect Eyes: No subconjunctival hemorrhage Skin: bruising left forearm at previous IV site Patient denies a fall Neck: no jugular venous distention Lungs: Diminished breath sound no wheezing or rhonchi. Heart: S1, S2 normal, no murmur Abdomen: Non-tender. Extremities: No peripheral edema Neuro: Grossly nonfocal LABS: TSH 1.290 12/09/2012 Triglyceride 84 08/13/2013 HDL Cholesterol 46 08/13/2013 LDL Chol, Claritza 121 08/13/2013 Cholesterol, Total 184 08/13/2013 CBC: Hemoglobin (g/dL) Date Value 10/05/2023 13.6 Hematocrit (%) Date Value 10/05/2023 43.3 WBC (k/uL) Date Value 10/05/2023 10.87 Platelet Count (k/uL) Date Value 10/05/2023 334 BMP: Potassium (mmol/L) Date Value 10/05/2023 4.2 08/13/2013 3.5 Sodium (mmol/L) Date Value 10/05/2023 136 08/13/2013 141 Chloride (mmol/L) Date Value 10/05/2023 94 08/13/2013 100 CO2 (mmol/L) Date Value 10/05/2023 24 08/13/2013 27 Creatinine (mg/dL) Date Value 10/05/2023 0.61 08/13/2013 0.58 BUN (mg/dL) Date Value 10/05/2023 19 08/13/2013 18 Anion Gap (mmol/L) Date Value 10/05/2023 18 08/13/2013 14 Calcium (mg/dL) Date Value 08/13/2013 9.7 Calcium, Total (mg/dL) Date Value 10/05/2023 9.8 Narrative Echocardiography Report: Transthoracic Echo [facility] Date of service: 05/16/2024 2:43:42 PM [facility] Ordering physician: JASON MACIAS Indication: Re-evaluation of known pulmonary hypertension (to guide therapy) Technologist: Adelina Leiva [facility] Interpreting physician: Patsy Mckeon MD PATIENT: Name: MRS. MAKENNA ANDRE : 1955 Age: 68 years Gender: F Primary rhythm: sinus. Height: 156.20 cm BSA: 1.77 m Weight: 71.94 kg BMI: 29.5 kg/m Heart rate 100 bpm Blood pressure 147/57 mmHg Technically difficult exam due to suboptimal positioning. Color Doppler was utilized to interrogate the cardiac valves assessed and spectral Doppler was utilized to determine the flow velocities and pressure gradients reported in this exam. MEASUREMENTS: Value Indexed Normal Max aortic dimension 2.8 cm Ao < 3.8 Left atrial volume 36 ml (biplane A-L) 20 ml/m Sam <= 34 LV ID (diastole) 4.6 cm (2D) 2.60 cm/m LV ID (systole) 2.2 cm (2D) 1.27 cm/m IVS, leaflet tips 0.8 cm (2D) Posterior wall thickness 0.8 cm (2D) Left ventricular mass 115 g (2D) 65 g/m LV stroke volume 42 ml (2D biplane) LV end diastolic volume 64 ml (2D biplane) 36.3 ml/m 29<=EDVi<62 LV end systolic volume 22 ml (2D biplane) 12.5 ml/m Ejection Fraction 66 % (2D biplane) EF > 54 FINDINGS: LEFT VENTRICLE The left ventricle is normal in size. There is no left ventricular hypertrophy. Left ventricular systolic function is normal globally. Normal left ventricular diastolic function. Mitral annular lateral E/e': 10.9. Mitral annular septal E/e': 11.2. Wall Motion: All scored segments are normal. RIGHT VENTRICLE The right ventricle is mildly dilated. Right ventricular systolic function is normal. RV systolic tissue Doppler velocity is 8.4 cm/s. Tricuspid annular displacement is 1.9 cm. Estimated right ventricular systolic pressure is likely underestimated due to a weak or incomplete tricuspid regurgitation signal and is, at least, 52 mmHg consistent with moderate pulmonary hypertension. Estimated right atrial pressure is 3 mmHg based on IVC assessment. LEFT ATRIUM The left atrial cavity is normal in size. RIGHT ATRIUM The right atrial cavity is normal in size. Inferior Vena Cava: The inferior vena cava appears normal measuring 1.5 cm. The vessel decreases greater than 50 percent with inspiration. MITRAL VALVE The mitral valve leaflets are structurally normal. There is trace mitral valve regurgitation. The pressure half time is 49 msec. The peak mitral E/A ratio is 0.73. The average mitral E/e' ratio is 11.0. The mitral flow deceleration time is 169 msec. TRICUSPID VALVE The tricuspid valve leaflets are structurally normal. There is trace (trace - 1+) tricuspid valve regurgitation. AORTIC VALVE The aortic valve cusps are structurally normal. There is trace aortic valve regurgitation. Tricuspid aortic valve. PULMONIC VALVE The pulmonic valve was not seen or not interrogated. There is trace pulmonic valve regurgitation. There is no thickening. AORTA The visualized aorta is normal in size. Measurements - Mid ascending aorta 2.8 cm. PULMONARY ARTERIES The pulmonary arteries are unseen or not interrogated. INTERATRIAL SEPTUM There is no evidence of intracardiac shunting as detected by Doppler. INTERVENTRICULAR SEPTUM There is systolic and diastolic flattening of the interventricular septum consistent with RV pressure and volume overload. There is no flow through the interventricular septum as detected by Doppler. PERICARDIUM There is no pericardial effusion. Impression CONCLUSIONS: - Technically difficult exam due to suboptimal positioning. - Exam indication: Re-evaluation of known pulmonary hypertension (to guide therapy) - The left ventricle is normal in size. There is no left ventricular hypertrophy. Left ventricular systolic function is normal. EF = 66 5% (2D biplane) Normal left ventricular diastolic function. - The right ventricle is mildly dilated. Right ventricular systolic function is normal. - There is trace (trace - 1+) tricuspid valve regurgitation. - Estimated right ventricular systolic pressure is likely underestimated due to a weak or incomplete tricuspid regurgitation signal and is, at least, 52 mmHg consistent with moderate pulmonary hypertension. Estimated right atrial pressure is 3 mmHg based on IVC assessment. - Exam was compared with the prior CC echocardiographic exam performed on 10/03/2023. RVSP was not reported on previous study. There is no other significant change. Scan 09/2023 IMPRESSION: No scintigraphic evidence of chronic thromboembolic disease. CT Chest 09/2023 IMPRESSION: 1. No CT evidence of pulmonary embolism. 2. Somewhat mosaic lung attenuation pattern which can be seen with small airways disease. 3. Scattered reticular and groundglass densities which may represent areas of inflammation/atelectasis. There may be a component component of chronic interstitial lung disease/pulmonary fibrosis. Follow-up CT may be helpful for further evaluation. 4. Mediastinal and hilar lymphadenopathy. TTE 09/2023 CONCLUSIONS: - Technically difficult exam due to body habitus. - Exam indication: Re-evaluation of known pulmonary hypertension (to guide therapy) - The left ventricle is normal in size. Left ventricular systolic function is normal. EF = 65 5% (2D biplane) Definity contrast used for endocardial border detection. Normal left ventricular diastolic function. - The right ventricle is mildly dilated. RV appears mildly dilated in limited accoustic views. RV systolic tissue Doppler velocity is 10.0 cm/s. - There are no significant valvular abnormalities. - There is no pericardial effusion. - No evidence of pulmonary hypertension by Doppler or appearance of the right-sided chambers. - The patient has not had a prior CC echocardiographic exam for comparison. RHC 09/2023 RHC determinations Determinations Result Units Rhythm A.Fib Inspired fraction of oxygen 44.00 % Nasal cannula Flow 6.00 L/min SpO2 98.00 % Systolic BP 122.00 mmHg Diastolic BP 59.00 mmHg Mean BP 80.00 mmHg Heart Rate 80.00 bpm Height 154.90 cm Weight 71.40 Kg Body surface area 1.71 m2 Body mass index 29.76 kg/m2 Right Atrial Pressure (mean) 1.00 mmHg Right Atrial Pressure (V-wave) 10.00 mmHg Right Ventricular Systolic Pressure 62.00 mmHg Right Ventricular Diastolic Pressure 0.00 mmHg Systolic pulmonary artery pressure 62.00 mmHg Mean pulmonary artery pressure 39.00 mmHg Diastolic pulmonary artery pressure 28.00 mmHg Pumonary artery pulse pressure 34.00 mmHg Pulmonary artery occlusion pressure (mean) 2.00 mmHg Pulmonary artery occlusion pressure (end-expiration) mid a wave 5.00 mmHg Pulmonary artery occlusion pressure (end-expiration) peak v wave NA Diastolic pulmonary gradient 23.00 mmHg Transpulmonary gradient 34.00 mmHg Pulmonary artery capacitance 1.99 mL/mmHg Cardiac output (thermodilution) 5.40 L/min Cardiac index (thermodilution) 3.17 L/min/m2 Cardiac output (indirect LEV) 4.42 L/min Cardiac index (indirect LEV) 2.59 L/min/m2 Systemic vascular resistance 1170.37 dynes/sec/cm5 Stroke volume 67.50 mL Stroke volume index 39.57 mL/m2 Right ventricular stroke work index 20.45 g*m/m2 Pulmonary vascular resistance 6.30 Wood Units Hemoglobin (mixed venous) 14.20 g/dL Arterial oxyhemoglobin 98.00 % Mixed venous oxyhemoglobin 73.00 % Lactic acid (arterial) NA mmol/L Abbreviated version Right Atrial Pressure (mean) 1.00 mmHg Mean pulmonary artery pressure 39.00 mmHg Pulmonary artery occlusion pressure (end-expiration) mid a wave 5.00 mmHg Cardiac index (thermodilution) 3.17 L/min/m2 Pulmonary vascular resistance 6.30 Wood Units Mixed venous oxyhemoglobin 73.00 % Saturations SaO2 PAWP NA % SaO2 PA 73.00 % SaO2 RA 74.00 % SpO2 98.00 % Vasoreactive Challenge (Inhaled NO 40ppm/5 mins) Systolic pulmonary artery pressure 61.00 mmHg Mean pulmonary artery pressure 40.00 mmHg Diastolic pulmonary artery pressure 30.00 mmHg Pumonary artery pulse pressure 31.00 mmHg Pulmonary artery occlusion pressure (mean) 2.00 mmHg Pulmonary artery occlusion pressure (end-expiration) mid a wave 5.00 mmHg Pulmonary artery occlusion pressure (end-expiration) peak v wave NA Cardiac output (thermodilution) 5.60 L/min Cardiac index (thermodilution) 3.28 L/min/m2 Pulmonary vascular resistance 6.25 Wood Unit WAVEFORMS: Right Atrial Pressure: Pulmonary Artery Pressure: PAWP: RV PullBack: Estimated Blood Loss: Scant Specimens: Mixed venous blood gases. Complications: None. Introducer removed without complications. Pressure applied for 10 minutes. No Bleeding. Condition of Patient After Procedure: stable Summary: Precapillary PH with preserved cardiac index. Negative nitric oxide response. 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 [id number] (who group 3 functional class III) continue Tyvaso at 64mcg Recent hospitalization at [facility] last week for acute on chronic hypoxic respiratory failure/volume overload Interstitial lung disease/Chronic hypoxic respiratory failure-on 3L NC Optimizer pendant Overall the patient seems to be doing better since her recent hospitalization at [facility] for acute hypoxic respiratory failure and volume overload With regards to her PAH she has shown clinical improvement on her Tyvaso and she is to continue thecurrent dose at 64 mcg 4 times daily via the DPI inhaler Recommend continuation of Advair 500/50 twice daily as ordered Patient was instructed to do daily weights. She should notify the heart failure clinic should she gain 2 to 3 pounds in 3 days or 5 pounds in 1 week Baseline for weight for this patient is approximately 140lbs Hospital follow-up scheduled with her PCP within [address] Godwin 09/05 at 1:45 pm ([place] office) patient has been instructed to call Dr. Godwin's office or the heart failure clinic for worsening shortness of breath or weight gain of volume overload or any other concerns. She was advised to go to the emergency room should she become increased shortness of breath. She has agreed to do this. BMP and BNP in 1 week Electronically signed by Bassem Case APRN.[employer]. Outpatient Counseling: I have personally spent 35 total minutes involved in the qcxm-de-mkcp care of patient. Greater than 50% of the time was spent counseling and/or coordinating care for the patient, the nature of which is noted above. The health conditions of this patient carry a high risk of complications, morbidity, and/or mortality. documented in this encounterMag[facility] Hospital02-13-2025 NoteHNO ID: [id number] Author: BASSEM CASE APRN.CNS Service: ? Author Type: Nurse Specialist Type: Progress Notes Filed: 07/10/2024 15:13 Note Text: Chronic Care Clinic/CHF?Pulmonary Hypertension Clinic Chief Complaint Exertional Dyspnea High Risk Medication Monitoring (Tyvaso) Pulmonary Hypertension HISTORY OF PRESENT ILLNESS: Patient is a pleasant 68-year-old female who is here for PAH/ILD evaluation. Patient had a recent hospitalization at [facility] for acute on chronic hypoxic respiratory failure and volume overload. Evidently the patient was on Lasix while at home but had been tapering her dosage and this resulted in volume overload and necessary hospitalization. She was hospitalized for a full week. Current dose of Lasix is 40mg daily. She is not certain whether or not it was precribed BID and I cannot see medical records from [place] in [facility]. Patient had undergone a right heart catheterization which with Dr. Godwin which was impressive for precapillary PAH the results of which are outlined below. Current treatment regimen for PAH includes Tyvaso DPI 64mcg qid, Since her hospitalization the patient was discharged on 3 L nasal cannula with Optimizer pendant and she has been using this continuously.She does endorse improvement in her breathing and symptoms overal since discharge from [facility] 4 days ago. Patient does experience some conversational dyspnea here in the clinic today. When she first arrived I placed the pulse oximeter on her finger and while speaking to me her O2 sat was 87 to 80% when not speaking her oxygen saturation sue within several minutes to about 94%. Patient tells me that she does have mild exertional dyspnea when walking around the house. Last night she was able to take a shower after she had turned her oxygen up to 8 L. She denies chest pain palpitations lightheadedness syncope or presyncopal episodes She denies orthopnea PND or cough she tells me that today was the first time she experienced some nausea after taking her Tyvaso She has never complained or experienced this before. I told the patient should she is continue to have this for the next day or so she needs to call us and we will either decrease her dosage of Tyvaso or place her on as needed Zofran. Physical exam the patient essentially appears euvolemic. She has no lower extremity edema no facial edema weight is stable she weight 141.4 pounds she tells me she normally weighs about 136 pounds out of her home scale she will continue to weigh herself daily she would notify us if she gains 2 or 3 pounds in 3 days or 5 pounds in 1 week for diuretic adjustment. Blood pressure is a little soft at 87/53 but she is sitting quietly in the chair and totally asymptomatic she fully denies being lightheaded at home PAST MEDICAL HISTORY Diagnosis Date Allergic rhinitis, cause unspecified Essential hypertension, benign Family history of ischemic heart disease father age 50, brother age 42 Obesity, unspecified PAST SURGICAL HISTORY Procedure Laterality Date COLONOSCOPY FLX DX W/COLLJ SPEC WHEN PFRMD 11-01-12 PAST SURGICAL HISTORY OF 1992 REMOVAL OF BENIGN CYST-RIGHT SIDE OF NECK TONSILLECTOMY AND ADENOIDECTOMY AGE 12/1992 FAMILY HISTORY Problem Relation Age of Onset Heart Father [place] - first age 40's, CVA age 50 Stroke Father CVA - first age 42, CVA age 50 Hypertension Mother Diabetes Mother Heart Brother age 41; also heavy etoh use Heart Brother stented age 42 Hypertension Brother Breast Cancer Maternal Aunt x2 Heart Paternal Uncle x2 Allergies Mother Cancer Mother pancreatic cancer Social History Tobacco Use Smoking status: Never Substance Use Topics Alcohol use: No Drug use: No ALLERGIES Allergen Reactions Darvocet-N 100 [Pro* Unknown numbness Penicillins Hives Last 2 Encounter Wt Readings: Date: Wt: 06/03/2024 66.7 kg (147 lb) 04/29/2024 71.7 kg (158 lb) General: appears stated age and in no acute distress. Psych: Normal Affect Eyes: No subconjunctival hemorrhage Skin: bruising left forearm at previous IV site Patient denies a fall Neck: no jugular venous distention Lungs: Diminished breath sound no wheezing or rhonchi. Heart: S1, S2 normal, no murmur Abdomen: Non-tender. Extremities: No peripheral edema Neuro: Grossly nonfocal LABS: TSH 1.290 12/09/2012 Triglyceride 84 08/13/2013 HDL Cholesterol 46 08/13/2013 LDL Chol, [place] 121 08/13/2013 Cholesterol, Total 184 08/13/2013 CBC: Hemoglobin (g/dL) Date Value 10/05/2023 13.6 Hematocrit (%) Date Value 10/05/2023 43.3 WBC (k/uL) Date Value 10/05/2023 10.87 Platelet Count (k/uL) Date Value 10/05/2023 334 BMP: Potassium (mmol/L) Date Value 10/05/2023 4.2 08/13/2013 3.5 Sodium (mmol/L) Date Value 10/05/2023 136 08/13/2013 141 Chloride (mmol/L) Date Value 10/05/2023 94 08/13/2013 1 (more content not included)...[facility] 07-08-2024 Instructions* Patient Instructions* Salvador Marin MD - 07/08/2024 1:50 PM EST We will see you in clinic after your breathing test. Continue with your efforts to reduce salt and fluid, and taking lasix. documented in this encounterMagruder Hospital02-11-2025 NoteHNO ID: [id number] Author: SALVADOR MARIN MD Service: ? Author Type: Physician Type: Progress Notes Filed: 07/08/2024 13:50 Note Text: Pulmonary Medicine INTERSTITIAL LUNG DISEASE OUTPATIENT CONSULTATION TELEMEDICINE DOCUMENTATION: I have communicated my name and active licensure. The patient?s identity and physical location were verified at the time of this visit. Either the patient or their legal title insurance sales representative has been informed of the risks and benefits of -- and alternatives to -- treatment through a remote evaluation and consents to proceed with the evaluation remotely. History of Present Illness: 68F here for ILD evaluation. Referred by PH team; ospitalized for acute (on chronic) hypoxic respiratory failure (10/01-10/06) in which work-up revealed presence of significant interstitial lung disease/fibrosis on CT chest and presence of pulmonary hypertension as suggested by echo. She eventually underwent inpatient RHC which was impressive for precapillary PH (results below). She presents today to establish care in clinic. Recommendations at time of discharge were to undergo SNIFF testing given elevation in R hemidiaphragm as well as initiation of inhaled treprostinil. With regards to patients history, patient had no respiratory issues the majority of her life. This all changed last Spring (08/2022) when she started to develop leg swelling, but ironically no shortness of breath. She went to PCP and was immediately sent to ED. In [place] ED she underwent imaging and she was told she had double pneumonia not from bacterial or virus in which she was placed on abx. She was also placed on oxygen at the time. Symptoms predominantly were reduced energy. Denied SOB/dyspnea, coughing, wheezing, or palpitations. She believes this pneumonia was potentially related to her hip surgery which she had 1 month before this all started. She was being seen by a battery tester in [place] and was told she may have COPD. She was placed on Advair 500/50 BID in which she was prescribed this since 07/2023 with minimal benefit. She was referred to [facility] for second opinion and on arrival patient was found to be in acute on chronic hypox respiratory failure and thus sent to hospital to be further evaluated with results discussed above. Since her hospitalization she was discharged on 6LNC (increased from 4LNC) and started on Tyvaso DPI. With regards to later, she endorses marked improvement in energy and symptoms overall since starting the Tyvaso. She has reduced her O2 to 5LNC as 6L was too much and I'm still doing OK. Denies any pedal edema, chest pain, shortness of breath, palpitations, fevers, chills, or NS. Weight is stable. She never grew up on farm. She owns inside cat/dog (pug/bulldog). Denies birds at this time. She did have a bird, cockateel for about 6 years over 28 years ago. Denies any bird exposures, rodent manifestations, bats exposures, jacuzzi, or mold in the house. 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 + dust exposure in which she frequently blew black out of her nose. Denies any unusual hobbies. Had remote cigarette use predominanly socially 3 cigarettes/week, last cigarette was > 40 years ago. Denies drug use, ETOH abuse (occasional social use). Has been on statin for years. Has no personal hx of AI. Family hx of lupus (cousins). + arthritis involving hands. Interval History: Recent hospitalization for HF exacerbation due to lasix non-compliance. Been home <1week. Using 6L w/ exertion. Spo2 mostly around 96%. Compliant with lasxis now. 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 mMRC: Date mMRC 06/03/24 4 07/08/24 4 Review of Systems: All other systems reviewed and are negative (except as per HPI). Past Medical AND Surgical History: PAST MEDICAL HISTORY Diagnosis Date Allergic rhinitis, cause unspecified Essential hypertension, benign Family history of ischemic heart disease father age 50, brother age 42 Obesity, unspecified PAST SURGICAL HISTORY Procedure Laterality Date COLONOSCOPY FLX DX W/COLLJ SPEC WHEN PFRMD 11-01-12 PAST SURGICAL HISTORY OF 1992 REMOVAL OF BENIGN CYST-RIGHT SIDE OF NECK TONSILLECTOMY AND ADENOIDECTOMY AGE 12/1992 Social History: Smoking history: reports that she has never smoked. She does not have any smokeless tobacco history on file. Drug Use: No Family History: FAMILY HISTORY Problem Relation Age of Onset Heart Father [place] - first age 40's, CVA age 50 Stroke Father CVA - first age 42, CVA age 50 Hypertension Mother Diabetes Mother Heart Brother age 41; also heavy etoh use Heart Brother stented age 42 Hypertension Brother Breast Cancer Maternal Aunt x2 Heart Paternal Uncle x2 Allergies Mother Cancer Mother pancreatic cancer Medications: Current Outpat (more content not included)...[facility] 07-08-2024 History of Present illness Narrative* Salvador Marin MD - 07/08/2024 1:03 PM EST Images from the original note were not included. Pulmonary Medicine INTERSTITIAL LUNG DISEASE OUTPATIENT CONSULTATION TELEMEDICINE DOCUMENTATION: I have communicated my name and active licensure. The patient s identity and physical location were verified at the time of this visit. Either the patient or their legal title insurance sales representative has been informed of the risks and benefits of -- and alternatives to -- treatment through a remote evaluation and consents to proceed with the evaluation remotely. History of Present Illness: 68F here for ILD evaluation. Referred by PH team; ospitalized for acute (on chronic) hypoxic respiratory failure (10/01-10/06) in which work-up revealed presence of significant interstitial lung disease/fibrosis on CT chest and presence of pulmonary hypertension as suggested by echo. She eventually underwent inpatient RHC which was impressive for precapillary PH (results below). She presents today to establish care in clinic. Recommendations at time of discharge were to undergo SNIFF testing given elevation in R hemidiaphragmas well as initiation of inhaled treprostinil. With regards to patients history, patient had no respiratory issues the majority of her life. This all changed last Spring (08/2022) when she started to develop leg swelling, but ironically no shortness of breath. She went to PCP and was immediately sent to ED. In [place] ED she underwent imaging and she was told she had double pneumonia not from bacterial or virus in which she was placed on abx. She was also placed on oxygen at the time. Symptoms predominantly were reduced energy. Denied SOB/dyspnea, coughing, wheezing, or palpitations. She believes this pneumonia was potentially related toher hip surgery which she had 1 month before this all started. She was being seen by a battery tester in [place] and was told she may have COPD. She was placed on Advair 500/50 BID in which she was prescribed this since 07/2023 with minimal benefit. She was referred to [facility] for second opinion and on arrival patient was found to be in acute on chronic hypox respiratory failure and thus sent to hospital to be further evaluated with results discussed above. Since her hospitalization she was discharged on 6LNC (increased from 4LNC) and started on Tyvaso DPI. With regards to later, she endorses marked improvement in energy and symptoms overall since starting the Tyvaso. She has reduced her O2 to 5LNC as 6L was too much and I'm still doing OK. Denies any pedal edema, chest pain, shortness of breath, palpitations, fevers, chills, or NS. Weight is stable. She never grew up on farm. She owns inside cat/dog (pug/bulldog). Denies birds at this time. She did have a bird, cockateel for about 6 years over 28 years ago. Denies any bird exposures, rodent manifestations, bats exposures, jacuzzi, or mold in the house. 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 + dust exposure in which she frequently blew black out of her nose. Denies any unusual hobbies. Had remote cigarette use predominanly socially 3 cigarettes/week, last cigarette was > 40 years ago. Denies drug use, ETOH abuse (occasional social use). Has been on statin for years. Has no personal hx of AI. Family hx of lupus (cousins). + arthritis involving hands. Interval History: Recent hospitalization for HF exacerbation due to lasix non-compliance. Been home <1week. Using 6L w/ exertion. Spo2 mostly around 96%. Compliant with lasxis now. 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 mMRC: Date mMRC 06/03/24 4 07/08/24 4 Review of Systems: All other systems reviewed and are negative (except as per HPI). Past Medical & Surgical History: PAST MEDICAL HISTORY Diagnosis Date Allergic rhinitis, cause unspecified Essential hypertension, benign Family history of ischemic heart disease father age 50, brother age 42 Obesity, unspecified PAST SURGICAL HISTORY Procedure Laterality Date COLONOSCOPY FLX DX W/COLLJ SPEC WHEN PFRMD 11-01-12 PAST SURGICAL HISTORY OF 1992 REMOVAL OF BENIGN CYST-RIGHT SIDE OF NECK TONSILLECTOMY & ADENOIDECTOMY AGE 12/> 1992 Social History: Smoking history: reports that she has never smoked. She does not have any smokeless tobacco historyon file. Drug Use: No Family History: FAMILY HISTORY Problem Relation Age of Onset Heart Father [place] - first age 40's, CVA age 50 Stroke Father CVA - first age 42, CVA age 50 Hypertension Mother Diabetes Mother Heart Brother age 41; also heavy etoh use Heart Brother stented age 42 Hypertension Brother Breast Cancer Maternal Aunt x2 Heart Paternal Uncle x2 Allergies Mother Cancer Mother pancreatic cancer Medications: Current Outpatient Medications Medication Sig fluticasone-salmeterol (ADVAIR DISKUS) 500-50 mcg/dose dsdv Inhale 1 Puff as instructed two times aday. Rinse and gargle mouth with water after each use. albuterol HFA (PROVENTIL HFA, VENTOLIN HFA) 90 mcg/actuation inhaler Inhale 2 Puffs as instructed every 6 hours as needed for wheezing/shortness of breath. TYVASO DPI 64 mcg dry powder inhaler Inhale 64 mcg as instructed four times daily. RED BEET ROOT-SOUR CANNON EXT ORAL Take by mouth. OXYGEN, HOME THERAPY, Inhale 6-10 L/min as instructed continuous. dilTIAZem LA (CARDIZEM LA) 240 mg 24 hr tablet Take 240 mg by mouth once daily. acetaminophen (TYLENOL ARTHRITIS PAIN) 650 mg CR tablet Take 1 tablet by mouth every 8 hours as needed for pain. cyanocobalamin (VITAMIN B-12) 1,000 mcg tab Take 1,000 mcg by mouth once daily. Chromium Picolinate 200 mcg tab Take 1 tablet by mouth once daily. vitamin E, dl,tocopheryl acet, (VITAMIN E, DL, ACETATE,) 180 mg (400 unit) capsule Take 1 capsule by mouth once daily. Glucosamine-Chondroitin (OSTEO BI-FLEX) 250-200 mg tab Take 2 tablets by mouth once daily. potassium chloride ER (KLOR-CON) 20 mEq tablet Take 1 tablet by mouth once daily. calcium carb-D3-mag ox-zinc ox (NISH MAG ZINC PLUS D3) 333 mg-133 unit -133 mg-5 mg tab Take 1 tablet by mouth once daily. levothyroxine (SYNTHROID) 50 mcg tablet Take 1 tablet by mouth daily before breakfast. pravastatin (PRAVACHOL) 20 mg tablet Take 1 tablet by mouth once daily. turmeric root extract 500 mg cap Take 1 capsule by mouth once daily. vit A and D3 in cod liver oil 1,250-135 unit cap Take 1 capsule by mouth once daily. furosemide (LASIX) 40 mg tablet Take 1 tablet by mouth once daily. Patient not taking daily-will try to take at least days a week Echinacea 500 mg cap Take 1 capsule by mouth two times a day. lisinopril 10 mg tablet Take 1 tablet by mouth once daily. Cholecalciferol, Vitamin D3, 2,000 unit cap Take 1 tablet by mouth once daily. vitamin A-ascorbic acid-vitamin E-minerals (OCUVITE) Tab Take 1 tablet by mouth once daily. LLR-Seayhbscd-Yberunfiaudaf (ALLERGY SINUS PE) 2-5-325 mg ORAL Tab Take by mouth as needed. GARLIC 1,000 MG CAP Take one tablet daily. aspirin(ADULT LOW DOSE ASPIRIN 81 MG TAB, DELAYED RELEASE) Take one(1) tablet daily. multivitamins(DAILY MULTIVITAMIN TAB) Take one(1) tablet daily. No current facility-administered medications for this visit. Physical Examination: None due telemedicine Review of Data: Reviewed in EMR and interpreted by myself CT: Apr 2024 IMPRESSION: 1. Again seen are regions of groundglass attenuation and air-trapping within both lungs, suggesting reactive airways disease. There are associated regions of reticulation and traction bronchiectasis seen within both lungs, compatible with interstitial disease. Similar findings were seen on the prior examination. There are also regions of honeycombing within the lungs. Consider fibrotic NSIP as a leading differential consideration. 2. Mediastinal and bilateral hilar lymphadenopathy. 3. Stable heterogeneity of thyroid gland, with stable appearing nodules seen within each lobe of thyroid gland, when compared to the prior examination. 4. Stable wedge compression deformity involving the T12 vertebral body, when compared to the prior examination. 6MWT: Date Distance Walked (m) Pred. Distance (m) % Pred. Notes Exercise Desaturations Study: Date Lowest SpO2 at rest Lowest SpO2 on exertion O2 dose needed Dec 2023 4L at rest, 5L w/ exertion Pulmonary Function Testing: Date FVC % Pred. FEV1 % Pred. FEV1/FVC TLC % Pred. DL % Pred. Dec 2023 1.67 79 0.98 51 58 2.10 44 10.33 51 PSG: Pathology & Bronchoscopy Results: EKG: ECHO: Apr 2024 LEFT VENTRICLE The left ventricle is normal in size. There is no left ventricular hypertrophy. Left ventricular systolic function is normal globally. Normal left ventricular diastolic function. Mitral annular lateral E/e': 10.9. Mitral annular septal E/e': 11.2. Wall Motion: All scored segments are normal. RIGHT VENTRICLE The right ventricle is mildly dilated. Right ventricular systolic function is normal. RV systolic tissue Doppler velocity is 8.4 cm/s. Tricuspid annular displacement is 1.9 cm. Estimated right ventricular systolic pressure is likely underestimated due to a weak or incomplete tricuspid regurgitation signal and is, at least, 52 mmHg consistent with moderate pulmonary hypertension. Estimated right atrial pressure is 3 mmHg based on IVC assessment. LV Angiography: Right heart catheterization: Date RA (S/D/M) RV (S/D/M) PA (S/D/M) PCWP (M) LVEDP CO/CI (Lev) PVR Vasoreactity FiO2 testing September 2023 ?/?/1 62/0/? ?/?/39 5 5.4/3.17 6.3 Assessment and Recommendation: (J84.9) ILD (interstitial lung disease) ([facility]) (primary encounter diagnosis) (I27.20) Pulmonary hypertension ([facility]) (Z79.899) High risk medication use (J96.11) Chronic hypoxemic respiratory failure ([facility]) (I50.9) Congestive heart failure, unspecified HF chronicity, unspecified heart failure type ([facility]) 68F here for ILD evaluation. PMHX of PH, CHRIS, chronic hypoxia. No AI symptoms. Mild improvement in dyspnea since O2 and tyvaso use. Compliant to ICS/LABA bid. Rarely using BILL. Exposure to birds (<1yr >20yrs ago, carbide at [employer]). CT most consistent w/ CHP rather than hard metal lung disease. FVC 70% but DL 51% - likely combination effect of PH. Not safe for biopsy; risk >>> benefits. Available AI labs negative. Recent hospitalization for HF exacerbation related to compliance issues with diuretics. Has not completed any relevant testing. Losing wt now that she is watching her diet and taking lasix. Again I discussed immunosuppression and antifibrotics as well as biopsy (if patient decides to proceed; cyrobiopsy safer than VATS; although I believe this is of limited clinical value). AI and HP labs negative. She will think on this after completing testing and return to clinic to discuss what she prefers to do. She review antifibrotics and immunosuppression so she can make informed decisions at next visit. RTC 4-6 weeks after testing ordered on 06/03. Pulm rehab encouraged. O2 use to keep spo2 >90 at all times, compliance to inhalers, PAP therapydiscussed. Patient was agreeable to plan, and all questions were answered accordingly. ILD Classification, Severity, Functional Assessment and Trajectory: ILD Ddx; CHP vs. Hard metal lung disease A. Disease progression: stable (CT September vs. Apr 2024) B. Pathology: none C. Imaging: lobular air trapping and reticulation subpleurally w/ GGO and bronchiectasis. No honeycombing D. Physiology: - PFT: FVC 79%, DL 51 - 6MWT: none E. Oxygenation: - at rest; 4L at rest, 5L on exertion - on exertion F. ILD medication management: anticipate immunosuppression then in the future antifibrotics if continued decline in pft/imaging G. PH: pre-cap on tyvaso H. Transplant: Signed: Barbara Marin MD, MS, FCCP Staff Physician [facility] Thank you for entrusting the care of this patient to the Interstitial Lung Disease Program. The patient will be returning to you for your continued care. We are happy to collaborate with you in any way. Please contact us if we can be of any assistance. Pulmonary Medicine documented in this encounterMagruder Hospital02-09-2025 [facility]02-07-2025 Telephone encounter Note* Telephone Encounter - Amol Godwin MD - 07/04/2024 12:46 PM EST Called patient and discussed how she is doing. She is still in hospital with plans on being discharge today. She was hospitalized for acute on chronic hypoxic respiratory in which it appears was volume overload as she was treated with intravenous lasix. She believes it might have been because sheself tapered off her home diuretics and wasn't taking it like she should have been. She feels much improved and is being discharge home today. She remains on Tyvaso 64 mcg QID with good compliance and was getting it regularly during her hospital stay. Faustina, can you try to move up her appointment with you to sometime next week? [facility] Miscellaneous Notes* Telephone Encounter - Amol Godwin MD - 07/04/2024 12:46 PM EST Called patient and discussed how she is doing. She is still in hospital with plans on being discharge today. She was hospitalized for acute on chronic hypoxic respiratory in which it appears was volume overload as she was treated with intravenous lasix. She believes it might have been because sheself tapered off her home diuretics and wasn't taking it like she should have been. She feels much improved and is being discharge home today. She remains on Tyvaso 64 mcg QID with good compliance and was getting it regularly during her hospital stay. Faustina, can you try to move up her appointment with you to sometime next week? documented in this encounterMag[facility] Telephone encounter Note * Telephone Encounter - Kelly Klein - 06/30/2024 10:47 AM EST Patient wanted to let you know that she is in [facility]. She cancelled her appt with Dr Godwin, and she wanted to see if she could talk to him. Please advise. Thank you [facility]03[facility] Miscellaneous Notes* Telephone Encounter - Kelly Klein - 06/30/2024 10:47 AM EST Patient wanted to let you know that she is in [facility]. She cancelled her appt with Dr Godwin, and she wanted to see if she could talk to him. Please advise. Thank you documented in this encounterMagruder Hospital02-01-[facility]25 Evaluation note* Diagnosis Onset Date Resolution Status Admit Date Acute on chronic respiratory failure with hypoxemia inactive June 28, 2024 3:01pm Restrictive lung disease inactive June 28, 2024 3:01pm [facility] Work Phone: 1(251) 763-882502-01-2025 Evaluation note* Diagnosis Onset Date Resolution Status Admit Date Restrictive lung disease chronic June 28, 2024 3:01pm Acute on chronic respiratory failure with hypoxemia inactive June 28, 2024 3:01pm Chronic respiratory failure with hypoxia chronic October 29, 2024 1 :39pm 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 (chronic) chronic J une 2024 1:39pm Coronary artery disease chronic J une 2024 1:39pm Dyslipidemia chronic October 29 1:39pm Dyspnea on exertion chronic October 29, 2024 1:39pm Essential (primary) hypertension chronic October 29, 2024 1 :39pm Pulmonary hypertension chronic 2024 1:39pm Restrictive lung disease chronic October 29, 2024 1:39pm [facility] Work Phone: [phone] Telephone encounter Note* Telephone Encounter - Tori Castro - 06/05/2024 4:21 PM EST Images from the original note were not included. [facility] Miscellaneous Notes* Telephone Encounter - Tori Castro - 06/05/2024 4:21 PM EST Images from the original note were not included. documented in this encounterMag[facility]01-08-2025 Telephone encounter Note * Telephone Encounter - Emely Swan RN - 06/04/2024 2:19 PM ESTSummary: Pt Education 06/04/2024: 1420: Pt was sent education to her residence regarding cellcept, ILD, esbriet, OFEV, and high protein diet. Other information given as to resources- nursing triage and scheduling phone numbers. Emely Swan RN [facility]01-08-2025 Miscellaneous Notes* Telephone Encounter - Emely Swan RN - 06/04/2024 2:19 PM ESTSummary: Pt Education 06/04/2024: 1420: Pt was sent education to her residence regarding cellcept, ILD, esbriet, OFEV, and high protein diet. Other information given as to resources- nursing triage and scheduling phone numbers. Emely Swan RN documented in this encounterMagruder Hospital01-07-2025 NoteHNO ID: [id number] Author: SALVADOR MARIN MD Service: ? Author Type: Physician Type: Progress Notes Filed: 06/03/2024 14:01 Note Text: Pulmonary Medicine NEW INTERSTITIAL LUNG DISEASE OUTPATIENT CONSULTATION Referring Physician: No ref. provider found Date of service: 06/03/24 History of Present Illness: 68F here for ILD evaluation. Referred by PH team; ospitalized for acute (on chronic) hypoxic respiratory failure (10/01-10/06) in which work-up revealed presence of significant interstitial lung disease/fibrosis on CT chest and presence of pulmonary hypertension as suggested by echo. She eventually underwent inpatient RHC which was impressive for precapillary PH (results below). She presents today to establish care in clinic. Recommendations at time of discharge were to undergo SNIFF testing given elevation in R hemidiaphragm as well as initiation of inhaled treprostinil. With regards to patients history, patient had no respiratory issues the majority of her life. This all changed last Spring (08/2022) when she started to develop leg swelling, but ironically no shortness of breath. She went to PCP and was immediately sent to ED. In [place] ED she underwent imaging and she was told she had double pneumonia not from bacterial or virus in which she was placed on abx. She was also placed on oxygen at the time. Symptoms predominantly were reduced energy. Denied SOB/dyspnea, coughing, wheezing, or palpitations. She believes this pneumonia was potentially related to her hip surgery which she had 1 month before this all started. She was being seen by a battery tester in [place] and was told she may have COPD. She was placed on Advair 500/50 BID in which she was prescribed this since 07/2023 with minimal benefit. She was referred to [facility] for second opinion and on arrival patient was found to be in acute on chronic hypox respiratory failure and thus sent to hospital to be further evaluated with results discussed above. Since her hospitalization she was discharged on 6LNC (increased from 4LNC) and started on Tyvaso DPI. With regards to later, she endorses marked improvement in energy and symptoms overall since starting the Tyvaso. She has reduced her O2 to 5LNC as 6L was too much and I'm still doing OK. Denies any pedal edema, chest pain, shortness of breath, palpitations, fevers, chills, or NS. Weight is stable. She never grew up on farm. She owns inside cat/dog (pug/bulldog). Denies birds at this time. She did have a bird, cockateel for about 6 years over 28 years ago. Denies any bird exposures, rodent manifestations, bats exposures, jacuzzi, or mold in the house. 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 + dust exposure in which she frequently blew black out of her nose. Denies any unusual hobbies. Had remote cigarette use predominanly socially 3 cigarettes/week, last cigarette was > 40 years ago. Denies drug use, ETOH abuse (occasional social use). Has been on statin for years. Has no personal hx of AI. Family hx of lupus (cousins). + arthritis involving hands. mMRC: Date [facility] 06/03/24 4 Review of Systems: All other systems reviewed and are negative (except as per HPI). Past Medical AND Surgical History: PAST MEDICAL HISTORY Diagnosis Date Allergic rhinitis, cause unspecified Essential hypertension, benign Family history of ischemic heart disease father age 50, brother age 42 Obesity, unspecified PAST SURGICAL HISTORY Procedure Laterality Date COLONOSCOPY FLX DX W/COLLJ SPEC WHEN PFRMD 11-01-12 PAST SURGICAL HISTORY OF 1992 REMOVAL OF BENIGN CYST-RIGHT SIDE OF NECK TONSILLECTOMY AND ADENOIDECTOMY AGE 12/> 1992 Social History: Smoking history: reports that she has never smoked. She does not have any smokeless tobacco history on file. Drug Use: No Family History: FAMILY HISTORY Problem Relation Age of Onset Heart Father [place] - first age 40's, CVA age 50 Stroke Father CVA - first age 42, CVA age 50 Hypertension Mother Diabetes Mother Heart Brother age 41; also heavy etoh use Heart Brother stented age 42 Hypertension Brother Breast Cancer Maternal Aunt x2 Heart Paternal Uncle x2 Allergies Mother Cancer Mother pancreatic cancer Medications: Current Outpatient Medications Medication Sig TYVASO DPI 64 mcg dry powder inhaler Inhale 64 mcg as instructed four times daily. RED BEET ROOT-SOUR CANNON EXT ORAL Take by mouth. OXYGEN, HOME THERAPY, Inhale 6-10 L/min as instructed continuous. dilTIAZem LA (CARDIZEM LA) 240 mg 24 hr tablet Take 240 mg by mouth once daily. acetaminophen (TYLENOL ARTHRITIS PAIN) 650 mg CR tablet Take 1 tablet by mouth every 8 hours as needed for pain. cyanocobalamin (VITAMIN B-12) 1,000 mcg tab Take 1,000 mcg by mouth once daily. Chromium Picolin (more content not included)...[facility] 06-03-2024 History of Present illness Narrative* Salvador Marin MD - 06/03/2024 1:02 PM EST Images from the original note were not included. Pulmonary Medicine NEW INTERSTITIAL LUNG DISEASE OUTPATIENT CONSULTATION Referring Physician: No ref. provider found Date of service: 06/03/24 History of Present Illness: 68F here for ILD evaluation. Referred by PH team; ospitalized for acute (on chronic) hypoxic respiratory failure (10/01-10/06) in which work-up revealed presence of significant interstitial lung disease/fibrosis on CT chest and presence of pulmonary hypertension as suggested by echo. She eventually underwent inpatient RHC which was impressive for precapillary PH (results below). She presents today to establish care in clinic. Recommendations at time of discharge were to undergo SNIFF testing given elevation in R hemidiaphragmas well as initiation of inhaled treprostinil. With regards to patients history, patient had no respiratory issues the majority of her life. This all changed last Spring (08/2022) when she started to develop leg swelling, but ironically no shortness of breath. She went to PCP and was immediately sent to ED. In [place] ED she underwent imaging and she was told she had double pneumonia not from bacterial or virus in which she was placed on abx. She was also placed on oxygen at the time. Symptoms predominantly were reduced energy. Denied SOB/dyspnea, coughing, wheezing, or palpitations. She believes this pneumonia was potentially related toher hip surgery which she had 1 month before this all started. She was being seen by a battery tester in [place] and was told she may have COPD. She was placed on Advair 500/50 BID in which she was prescribed this since 07/2023 with minimal benefit. She was referred to [facility] for second opinion and on arrival patient was found to be in acute on chronic hypox respiratory failure and thus sent to hospital to be further evaluated with results discussed above. Since her hospitalization she was discharged on 6LNC (increased from 4LNC) and started on Tyvaso DPI. With regards to later, she endorses marked improvement in energy and symptoms overall since starting the Tyvaso. She has reduced her O2 to 5LNC as 6L was too much and I'm still doing OK. Denies any pedal edema, chest pain, shortness of breath, palpitations, fevers, chills, or NS. Weight is stable. She never grew up on farm. She owns inside cat/dog (pug/bulldog). Denies birds at this time. She did have a bird, cockateel for about 6 years over 28 years ago. Denies any bird exposures, rodent manifestations, bats exposures, jacuzzi, or mold in the house. 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 + dust exposure in which she frequently blew black out of her nose. Denies any unusual hobbies. Had remote cigarette use predominanly socially 3 cigarettes/week, last cigarette was > 40 years ago. Denies drug use, ETOH abuse (occasional social use). Has been on statin for years. Has no personal hx of AI. Family hx of lupus (cousins). + arthritis involving hands. mMRC: Date [facility] 06/03/24 4 Review of Systems: All other systems reviewed and are negative (except as per HPI). Past Medical & Surgical History: PAST MEDICAL HISTORY Diagnosis Date Allergic rhinitis, cause unspecified Essential hypertension, benign Family history of ischemic heart disease father age 50, brother age 42 Obesity, unspecified PAST SURGICAL HISTORY Procedure Laterality Date COLONOSCOPY FLX DX W/COLLJ SPEC WHEN PFRMD 11-01-12 PAST SURGICAL HISTORY OF 1992 REMOVAL OF BENIGN CYST-RIGHT SIDE OF NECK TONSILLECTOMY & ADENOIDECTOMY AGE 12/> 1992 Social History: Smoking history: reports that she has never smoked. She does not have any smokeless tobacco historyon file. Drug Use: No Family History: FAMILY HISTORY Problem Relation Age of Onset Heart Father [place] - first age 40's, CVA age 50 Stroke Father CVA - first age 42, CVA age 50 Hypertension Mother Diabetes Mother Heart Brother age 41; also heavy etoh use Heart Brother stented age 42 Hypertension Brother Breast Cancer Maternal Aunt x2 Heart Paternal Uncle x2 Allergies Mother Cancer Mother pancreatic cancer Medications: Current Outpatient Medications Medication Sig TYVASO DPI 64 mcg dry powder inhaler Inhale 64 mcg as instructed four times daily. RED BEET ROOT-SOUR CANNON EXT ORAL Take by mouth. OXYGEN, HOME THERAPY, Inhale 6-10 L/min as instructed continuous. dilTIAZem LA (CARDIZEM LA) 240 mg 24 hr tablet Take 240 mg by mouth once daily. acetaminophen (TYLENOL ARTHRITIS PAIN) 650 mg CR tablet Take 1 tablet by mouth every 8 hours as needed for pain. cyanocobalamin (VITAMIN B-12) 1,000 mcg tab Take 1,000 mcg by mouth once daily. Chromium Picolinate 200 mcg tab Take 1 tablet by mouth once daily. vitamin E, dl,tocopheryl acet, (VITAMIN E, DL, ACETATE,) 180 mg (400 unit) capsule Take 1 capsule by mouth once daily. Glucosamine-Chondroitin (OSTEO BI-FLEX) 250-200 mg tab Take 2 tablets by mouth once daily. potassium chloride ER (KLOR-CON) 20 mEq tablet Take 1 tablet by mouth once daily. calcium carb-D3-mag ox-zinc ox (NISH MAG ZINC PLUS D3) 333 mg-133 unit -133 mg-5 mg tab Take 1 tablet by mouth once daily. levothyroxine (SYNTHROID) 50 mcg tablet Take 1 tablet by mouth daily before breakfast. pravastatin (PRAVACHOL) 20 mg tablet Take 1 tablet by mouth once daily. turmeric root extract 500 mg cap Take 1 capsule by mouth once daily. vit A and D3 in cod liver oil 1,250-135 unit cap Take 1 capsule by mouth once daily. furosemide (LASIX) 40 mg tablet Take 1 tablet by mouth once daily. Patient not taking daily-will try to take at least days a week Echinacea 500 mg cap Take 1 capsule by mouth two times a day. lisinopril 10 mg tablet Take 1 tablet by mouth once daily. Cholecalciferol, Vitamin D3, 2,000 unit cap Take 1 tablet by mouth once daily. vitamin A-ascorbic acid-vitamin E-minerals (OCUVITE) Tab Take 1 tablet by mouth once daily. ZFY-Muysmdeaj-Htzpmjstqkvne (ALLERGY SINUS PE) 2-5-325 mg ORAL Tab Take by mouth as needed. GARLIC 1,000 MG CAP Take one tablet daily. aspirin(ADULT LOW DOSE ASPIRIN 81 MG TAB, DELAYED RELEASE) Take one(1) tablet daily. multivitamins(DAILY MULTIVITAMIN TAB) Take one(1) tablet daily. fluticasone-salmeterol (ADVAIR DISKUS) 500-50 mcg/dose dsdv Inhale 1 Puff as instructed two times aday. Rinse and gargle mouth with water after each use. albuterol HFA (PROVENTIL HFA, VENTOLIN HFA) 90 mcg/actuation inhaler Inhale 2 Puffs as instructed every 6 hours as needed for wheezing/shortness of breath. No current facility-administered medications for this visit. Physical Examination: Vital Signs: Blood pressure 155/65, pulse 100, temperature 37 C (98.6 F), temperature source Temporal, resp. rate 18, height 154.9 cm (5' 1), weight 66.7 kg (147 lb), last menstrual period 07/05/2009, SpO2 92%. General: The patient appears in no acute distress. Alert and oriented to person, place, time, and situation. Calm and cooperative with physical exam. HEENT: Normocephalic, normal conjunctiva, moist oral mucosa, PERRL, nares patent, good dentition, appropriate rise and fall of uvula and soft palate Neck: TM No JVD Chest mild crackles bases Cardiac: Regular rhythm, normal rate, S1S2 auscultated Abdomen: Soft, non-tender, non-distended, positive bowel sounds in all four quadrants Skin: No rashes, open wounds, or bruising. Warm, dry, well-perfused. Extremities: no edema, no cyanosis Neuro: Grossly moving all 4 limbs Psych: Mood stable. Review of Data: Reviewed in EMR and interpreted by myself CT: Apr 2024 IMPRESSION: 1. Again seen are regions of groundglass attenuation and air-trapping within both lungs, suggesting reactive airways disease. There are associated regions of reticulation and traction bronchiectasis seen within both lungs, compatible with interstitial disease. Similar findings were seen on the prior examination. There are also regions of honeycombing within the lungs. Consider fibrotic NSIP as a leading differential consideration. 2. Mediastinal and bilateral hilar lymphadenopathy. 3. Stable heterogeneity of thyroid gland, with stable appearing nodules seen within each lobe of thyroid gland, when compared to the prior examination. 4. Stable wedge compression deformity involving the T12 vertebral body, when compared to the prior examination. 6MWT: Date Distance Walked (m) Pred. Distance (m) % Pred. Notes Exercise Desaturations Study: Date Lowest SpO2 at rest Lowest SpO2 on exertion O2 dose needed Dec 2023 4L at rest, 5L w/ exertion Pulmonary Function Testing: Date FVC % Pred. FEV1 % Pred. FEV1/FVC TLC % Pred. DL % Pred. Dec 2023 1.67 79 0.98 51 58 2.10 44 10.33 51 PSG: Pathology & Bronchoscopy Results: EKG: ECHO: Apr 2024 LEFT VENTRICLE The left ventricle is normal in size. There is no left ventricular hypertrophy. Left ventricular systolic function is normal globally. Normal left ventricular diastolic function. Mitral annular lateral E/e': 10.9. Mitral annular septal E/e': 11.2. Wall Motion: All scored segments are normal. RIGHT VENTRICLE The right ventricle is mildly dilated. Right ventricular systolic function is normal. RV systolic tissue Doppler velocity is 8.4 cm/s. Tricuspid annular displacement is 1.9 cm. Estimated right ventricular systolic pressure is likely underestimated due to a weak or incomplete tricuspid regurgitation signal and is, at least, 52 mmHg consistent with moderate pulmonary hypertension. Estimated right atrial pressure is 3 mmHg based on IVC assessment. LV Angiography: Right heart catheterization: Date RA (S/D/M) RV (S/D/M) PA (S/D/M) PCWP (M) LVEDP CO/CI (Lev) PVR Vasoreactity FiO2 testing September 2023 ?/?/1 62/0/? ?/?/39 5 5.4/3.17 6.3 Assessment and Recommendation: (J84.9) Interstitial pulmonary disease (HCC) (primary encounter diagnosis) (Z79.899) High risk medication use (I27.20) Pulmonary hypertension (HCC) (J96.11) Chronic hypoxemic respiratory failure (HCC) 68F here for ILD evaluation. PMHX of PH, CHRIS, chronic hypoxia. No AI symptoms. Mild improvement in dyspnea since O2 and tyvaso use. Compliant to ICS/LABA bid. Rarely using BILL. Exposure to birds (<1yr >20yrs ago, carbide at [employer]). CT most consistent w/ CHP rather than hard metal lung disease. FVC 70% but DL 51% - likely combination effect of PH. Not safe for biopsy; risk >>> benefits. Available AI labs negative. I discussed immunosuppression and antifibrotics as well as biopsy (if patient decides to proceed; cyrobiopsy safer than VATS; although I believe this is of limited clinical value). Patient will complete comprehensive AI and HP labs including telomere length (since people with STS do worse with immunosuppression for CHP), updated yue, dl, 6mwt and return in 4-6 weeks to discuss results and treatment. She will be sent resources on ILD, antifibrotics and immunosuppression so she can make informed decisions at next visit. Pulm rehab encouraged. O2 use to keep spo2 >90 at all times, compliance to inhalers, PAP therapydiscussed. RTC 4-6 weeks after yue, dl, 6mwt. ILD Rns will send resources on ILD, cellcept, imuran, ofev, esbriet. I spent 45 minutes in the visit, with more than 50% of the total [id number] time of the visit in counseling / coordination of care. Patient was agreeable to plan, and all questions were answered accordingly. ILD Classification, Severity, Functional Assessment and Trajectory: ILD Ddx; CHP vs. Hard metal lung disease) A. Disease progression: stable (CT September vs. Apr 2024) B. Pathology: none C. Imaging: lobular air trapping and reticulation subpleurally w/ GGO and bronchiectasis. No honeycombing D. Physiology: - PFT: FVC 79%, DL 51 - 6MWT: none E. Oxygenation: - at rest; 4L at rest, 5L on exertion - on exertion F. ILD medication management: anticipate immunosuppression then in the future antifibrotics if continued decline in pft/imaging G. PH: pre-cap on tyvaso H. Transplant: Signed: Barbara Marin MD, MS, FCCP Staff Physician [facility] 06/03/2024 1:02 PM Thank you for entrusting the care of this patient to the Interstitial Lung Disease Program. The patient will be returning to you for your continued care. We are happy to collaborate with you in any way. Please contact us if we can be of any assistance. Pulmonary Medicine documented in this encounterMag[facility]01-02-2025 Telephone encounter Note * Telephone Encounter - Jason Macias APRN.CNP - 05/29/2024 2:33 PM EST Spoke with the patient regarding the results of 05/16/[address] chest noting consistent findings of ILD. Patient would be okay with seeing an ILD specialist in [place] for further workup and evaluation. Will send note to clerical pool to schedule patient with Dr. Francois as a new ILD consult. All questions answered. [facility] Miscellaneous Notes* Telephone Encounter - Jason Macias APRN.CNP - 05/29/2024 2:33 PM EST Spoke with the patient regarding the results of 05/16/[address] chest noting consistent findings of ILD. Patient would be okay with seeing an ILD specialist in [place] for further workup and evaluation. Will send note to clerical pool to schedule patient with Dr. Francois as a new ILD consult. All questions answered. documented in this encounterMag[facility]12-23-2024 Telephone encounter Note * Telephone Encounter - Bailee Easton RN - 05/19/2024 8:44 AM EST Message to patient, does not have any questions at this time. To CB with any concerns. [facility] Miscellaneous Notes* Telephone Encounter - Bailee Easton RN - 05/19/2024 8:44 AM EST Message to patient, does not have any questions at this time. To CB with any concerns. * Telephone Encounter - Bailee Easton RN - 05/19/2024 8:39 AM EST ----- Message from Jason Macias APRN.CNP sent at 05/16/2024 4:57 PM EST ----- Please notify the patient of the following: Your echo shows moderate pulmonary hypertension, but no other significant change in comparison to your echo from September 2023. Please continue to follow up with Dr. Godwin as scheduled to further review echo results. Let me know if you have any questions in the meantime. Jason Gonsalez APRN.CNP documented in this encounterMagr[facility] Hospital12-23-2024 Telephone encounter Note * Telephone Encounter - Bailee Easton RN - 05/19/2024 8:39 AM EST ----- Message from Jason Macias APRN.CNP sent at 05/16/2024 4:57 PM EST ----- Please notify the patient of the following: Your echo shows moderate pulmonary hypertension, but no other significant change in comparison to your echo from September 2023. Please continue to follow up with Dr. Godwin as scheduled to further review echo results. Let me know if you have any questions in the meantime. Jason Gonsalez APRN.CNP [facility] Miscellaneous Notes* Result Encounter Note - Jason Macias APRN.CNP - 05/16/2024 2:30 PM EST Please notify the patient of the following: Your echo shows moderate pulmonary hypertension, but no other significant change in comparison to your echo from September 2023. Please continue to follow up with Dr. Godwin as scheduled to further review echo results. Let me know if you have any questions in the meantime. Jason Gonsalez APRN.CNP documented in this encounterMagruder Hospital12-20-2024 Progress note* Result Encounter Note - Jason Macias APRN.CNP - 05/16/2024 2:30 PM EST Please notify the patient of the following: Your echo shows moderate pulmonary hypertension, but no other significant change in comparison to your echo from September 2023. Please continue to follow up with Dr. Godwin as scheduled to further review echo results. Let me know if you have any questions in the meantime. Jason Gonsalez APRN.CNP [facility]12-20-[facility] History of Present illness Narrative* Chuy Rashid Tech - 05/16/2024 1:30 PM EST Radiology Service Progress Note PATIENT NAME: Makenna Andre DATE OF SERVICE: May 16, 2024 TIME: 2:02 PM PATIENT IDENTITY VERIFICATION COMPLETED USING TWO (2) IDENTIFIERS: Name and Date of confirmedby patient verbally and Name and Date of confirmed by identification band. FALL SCREENING: Has the patient had 2 falls in the last year or 1 fall with injury or currently using an Ambulatory Assistive Device (Walker, Cane, Wheelchair, Crutches, etc.)? Yes, Patient High Riskfor Falls What interventions were put in place to prevent falls during this visit? [place] Risk Wristband Applied PATIENT GENDER DATA: Female. status: : No status: NO. PATIENT RELEVANT IMPLANT DATA REVIEWED: Not Applicable PATIENT PRESENTS WITH AN IMPLANTABLE OR ATTACHED PAVING BED MAKER: No RADIOLOGY DEPARTMENT: CT chest w/o (high res) PERIPHERAL IV DATA: Not applicable SIGNED BY: Neetu Doe May 16, 2024 2:02 PM documented in this encounterMag[facility]12-20-2024 NoteHNO ID: [id number] Author: CHUY RASHID Tech Service: Radiology Author Type: Fabricator Artificial Breast Type: Progress Notes Filed: 05/16/2024 14:03 Note Text: Radiology Service Progress Note PATIENT NAME: Makenna Andre DATE OF SERVICE: May 16, 2024 TIME: 2:02 PM PATIENT IDENTITY VERIFICATION COMPLETED USING TWO (2) IDENTIFIERS: Name and Date of confirmed by patient verbally and Name and Date of confirmed by identification band. FALL SCREENING: Has the patient had 2 falls in the last year or 1 fall with injury or currently using an Ambulatory Assistive Device (Walker, Cane, Wheelchair, Crutches, etc.)? Yes, Patient High Risk for Falls What interventions were put in place to prevent falls during this visit? [place] Risk Wristband Applied PATIENT GENDER DATA: Female. status: : No status: NO. PATIENT RELEVANT IMPLANT DATA REVIEWED: Not Applicable PATIENT PRESENTS WITH AN IMPLANTABLE OR ATTACHED PAVING BED MAKER: No RADIOLOGY DEPARTMENT: CT chest w/o (high res) PERIPHERAL IV DATA: Not applicable SIGNED BY: Neetu Doe May 16, 2024 2:02 [facility]12-04-2024 Evaluation note * Diagnosis Onset Date Resolution Status Admit Date Chronic respiratory failure with hypoxia chronic April 30 1:45pm 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 (chronic) chronic D ec2023 1:45pm Coronary artery disease chronic D ec2023 1:45pm Dyslipidemia chronic April 1:45pm Dyspnea on exertion chronic Decem edil 2023 1:45pm Essential (primary) hypertension chronic April 30 1:45pm Pulmonary hypertension chronic De cember 2023 1:45pm Restrictive lung disease inactive April 30, 2024 1:45pm Acute on chronic respiratory failure with hypoxemia inactive June 28, 2024 3:01pm Restrictive lung disease inactive June 28, 2024 3:01pm [facility] Work Phone: [phone]) 507-899612-03-2024 History of Present illness Narrative* Bassem Case APRN.[employer] - 04/29/2024 1:00 PM ESTSummary: Exertional dyspnea , hypoxia Management of high risk medication ( Tyvaso) Images from the original note were not included. Chronic Care Clinic/CHF/Pulmonary Hypertension Clinic Chief Complaint Exertional dyspnea with hypoxia high risk medication management (Tyvaso) Ms. Andre is a 67 year old female patient who is known to the heart failure clinic and presents as follow-up for her recently diagnosed PAH-ILD. Patient was hospitalized for acute hypoxic respiratoryfailure -10/06 of this year in which a workup revealed the presence of significant interstitial lung disease/fibrosis on the CT scan as well as presence of pulmonary hypertension cardiac echo. Eventually the patient underwent a right heart catheterization which was impressive for precapillary PAH She was then subsequently started on Tyvaso DPI by Dr. Godwin. Patient states that she has done very well since starting Tyvaso DPI. She has noted significant improvement in her exertional dyspnea and fatigue. She is able to complete activities of routine daily living much easier and he feels overall much better. Patient's current dosage of Tyvaso DPI 64mcg 4 times daily She is doing very well with this. Coughing post treatment does not seem to be much of a problem. She uses an organic homey spray prn to soothe her throat. Patient has been maintained continuously on 5 L of oxygen per nasal cannula with an optimizer pendant. and she has shown marked improvement in energy and symptoms overall She denies any pedal edema, chest pain, shortness of breath, palpitations, fever, chills Her weight is stable at 153lbs Patient voices no complaints today She also denies diarrhea, palpitations, flushing orlightheadedness. Patient's current prescribed diuretic regimen is Lasix 40 mg p.o. daily. Patient actually is euvolemic today She tells me she does not need to take her Lasix on a daily basis and does not do so. She only takes Lasix when her her ankles are slightly swollen or she notices a slight increase in her weight. This is about once a week. I encouraged patient to at least try to take the Lasix every other day. Patient does weigh herself on a daily basis Other than the Tyvaso DPI the patient is on no additional PAH medications PAST MEDICAL HISTORY Diagnosis Date Allergic rhinitis, cause unspecified Essential hypertension, benign Family history of ischemic heart disease father age 50, brother age 42 Obesity, unspecified PAST SURGICAL HISTORY Procedure Laterality Date COLONOSCOPY FLX DX W/COLLJ SPEC WHEN PFRMD 11-01-12 PAST SURGICAL HISTORY OF 1992 REMOVAL OF BENIGN CYST-RIGHT SIDE OF NECK TONSILLECTOMY & ADENOIDECTOMY AGE 12/> 1992 FAMILY HISTORY Problem Relation Age of Onset Heart Father [place] - first age 40's, CVA age 50 Stroke Father CVA - first age 42, CVA age 50 Hypertension Mother Diabetes Mother Heart Brother age 41; also heavy etoh use Heart Brother stented age 42 Hypertension Brother Breast Cancer Maternal Aunt x2 Heart Paternal Uncle x2 Allergies Mother Cancer Mother pancreatic cancer Social History Tobacco Use Smoking status: Never Substance Use Topics Alcohol use: No Drug use: No ALLERGIES Allergen Reactions Darvocet-N 100 [Pro* Unknown numbness Penicillins Hives Medications: Current Outpatient Medications Medication Sig Dispense Refill TYVASO DPI 64 mcg dry powder inhaler Inhale 64 mcg as instructed four times daily. RED BEET ROOT-SOUR CANNON EXT ORAL Take by mouth. albuterol HFA (PROVENTIL HFA, VENTOLIN HFA) 90 mcg/actuation inhaler Inhale 2 Puffs as instructed every 6 hours as needed for wheezing/shortness of breath. 1 Each 5 fluticasone-salmeterol (ADVAIR DISKUS) 500-50 mcg/dose dsdv Inhale 1 Puff as instructed two times aday. Rinse and gargle mouth with water after each use. 60 Each 5 OXYGEN, HOME THERAPY, Inhale 6-10 L/min as instructed continuous. dilTIAZem LA (CARDIZEM LA) 240 mg 24 hr tablet Take 240 mg by mouth once daily. acetaminophen (TYLENOL ARTHRITIS PAIN) 650 mg CR tablet Take 1 tablet by mouth every 8 hours as needed for pain. cyanocobalamin (VITAMIN B-12) 1,000 mcg tab Take 1,000 mcg by mouth once daily. Chromium Picolinate 200 mcg tab Take 1 tablet by mouth once daily. vitamin E, dl,tocopheryl acet, (VITAMIN E, DL, ACETATE,) 180 mg (400 unit) capsule Take 1 capsule by mouth once daily. Glucosamine-Chondroitin (OSTEO BI-FLEX) 250-200 mg tab Take 2 tablets by mouth once daily. potassium chloride ER (KLOR-CON) 20 mEq tablet Take 1 tablet by mouth once daily. calcium carb-D3-mag ox-zinc ox (NISH MAG ZINC PLUS D3) 333 mg-133 unit -133 mg-5 mg tab Take 1 tablet by mouth once daily. levothyroxine (SYNTHROID) 50 mcg tablet Take 1 tablet by mouth daily before breakfast. pravastatin (PRAVACHOL) 20 mg tablet Take 1 tablet by mouth once daily. turmeric root extract 500 mg cap Take 1 capsule by mouth once daily. vit A and D3 in cod liver oil 1,250-135 unit cap Take 1 capsule by mouth once daily. furosemide (LASIX) 40 mg tablet Take 1 tablet by mouth once daily. Echinacea 500 mg cap Take 1 capsule by mouth two times a day. lisinopril 10 mg tablet Take 1 tablet by mouth once daily. 90 tablet 3 Cholecalciferol, Vitamin D3, 2,000 unit cap Take 1 tablet by mouth once daily. 0 vitamin A-ascorbic acid-vitamin E-minerals (OCUVITE) Tab Take 1 tablet by mouth once daily. 0 GSR-Kithpqkcc-Otclundsbzjlt (ALLERGY SINUS PE) 2-5-325 mg ORAL Tab Take by mouth as needed. 0 GARLIC 1,000 MG CAP Take one tablet daily. 0 aspirin(ADULT LOW DOSE ASPIRIN 81 MG TAB, DELAYED RELEASE) Take one(1) tablet daily. 0 multivitamins(DAILY MULTIVITAMIN TAB) Take one(1) tablet daily. 0 0 No current facility-administered medications for this visit. Last 2 Encounter Wt Readings: Date: Wt: 04/21/2024 72.1 kg (158 lb 15.2 oz) 04/09/2024 71.4 kg (157 lb 6.5 oz) General: Well appearing, appears stated age and in no acute distress. Psych: Normal Affect Eyes: No subconjunctival hemorrhage Neck: no jugular venous distention, no carotid bruits. Lungs: Clear to auscultation bilaterally, no wheezing or rhonchi. Heart: S1, S2 normal, no murmur Abdomen: Non-tender. Extremities: Trace lower ankle peripheral edema Neuro: Grossly nonfocal LABS: TSH 1.290 12/09/2012 Triglyceride 84 08/13/2013 HDL Cholesterol 46 08/13/2013 LDL Chol, [place] 121 08/13/2013 Cholesterol, Total 184 08/13/2013 CBC: Hemoglobin (g/dL) Date Value 10/05/2023 13.6 Hematocrit (%) Date Value 10/05/2023 43.3 WBC (k/uL) Date Value 10/05/2023 10.87 Platelet Count (k/uL) Date Value 10/05/2023 334 BMP: VQ Scan 09/2023 IMPRESSION: No scintigraphic evidence of chronic thromboembolic disease. CT Chest 09/2023 IMPRESSION: 1. No CT evidence of pulmonary embolism. 2. Somewhat mosaic lung attenuation pattern which can be seen with small airways disease. 3. Scattered reticular and groundglass densities which may represent areas of inflammation/atelectasis. There may be a component component of chronic interstitial lung disease/pulmonary fibrosis. Follow-up CT may be helpful for further evaluation. 4. Mediastinal and hilar lymphadenopathy. TTE 09/2023 CONCLUSIONS: - Technically difficult exam due to body habitus. - Exam indication: Re-evaluation of known pulmonary hypertension (to guide therapy) - The left ventricle is normal in size. Left ventricular systolic function is normal. EF = 65 5% (2D biplane) Definity contrast used for endocardial border detection. Normal left ventricular diastolic function. - The right ventricle is mildly dilated. RV appears mildly dilated in limited accoustic views. RV systolic tissue Doppler velocity is 10.0 cm/s. - There are no significant valvular abnormalities. - There is no pericardial effusion. - No evidence of pulmonary hypertension by Doppler or appearance of the right-sided chambers. - The patient has not had a prior CC echocardiographic exam for comparison. RHC 09/2023 RHC determinations Determinations Result Units Rhythm A.Fib Inspired fraction of oxygen 44.00 % Nasal cannula Flow 6.00 L/min SpO2 98.00 % Systolic BP 122.00 mmHg Diastolic BP 59.00 mmHg Mean BP 80.00 mmHg Heart Rate 80.00 bpm Height 154.90 cm Weight 71.40 Kg Body surface area 1.71 m2 Body mass index 29.76 kg/m2 Right Atrial Pressure (mean) 1.00 mmHg Right Atrial Pressure (V-wave) 10.00 mmHg Right Ventricular Systolic Pressure 62.00 mmHg Right Ventricular Diastolic Pressure 0.00 mmHg Systolic pulmonary artery pressure 62.00 mmHg Mean pulmonary artery pressure 39.00 mmHg Diastolic pulmonary artery pressure 28.00 mmHg Pumonary artery pulse pressure 34.00 mmHg Pulmonary artery occlusion pressure (mean) 2.00 mmHg Pulmonary artery occlusion pressure (end-expiration) mid a wave 5.00 mmHg Pulmonary artery occlusion pressure (end-expiration) peak v wave NA Diastolic pulmonary gradient 23.00 mmHg Transpulmonary gradient 34.00 mmHg Pulmonary artery capacitance 1.99 mL/mmHg Cardiac output (thermodilution) 5.40 L/min Cardiac index (thermodilution) 3.17 L/min/m2 Cardiac output (indirect LEV) 4.42 L/min Cardiac index (indirect LEV) 2.59 L/min/m2 Systemic vascular resistance 1170.37 dynes/sec/cm5 Stroke volume 67.50 mL Stroke volume index 39.57 mL/m2 Right ventricular stroke work index 20.45 g*m/m2 Pulmonary vascular resistance 6.30 Wood Units Hemoglobin (mixed venous) 14.20 g/dL Arterial oxyhemoglobin 98.00 % Mixed venous oxyhemoglobin 73.00 % Lactic acid (arterial) NA mmol/L Abbreviated version Right Atrial Pressure (mean) 1.00 mmHg Mean pulmonary artery pressure 39.00 mmHg Pulmonary artery occlusion pressure (end-expiration) mid a wave 5.00 mmHg Cardiac index (thermodilution) 3.17 L/min/m2 Pulmonary vascular resistance 6.30 Wood Units Mixed venous oxyhemoglobin 73.00 % Saturations SaO2 PAWP NA % SaO2 PA 73.00 % SaO2 RA 74.00 % SpO2 98.00 % Vasoreactive Challenge (Inhaled NO 40ppm/5 mins) Systolic pulmonary artery pressure 61.00 mmHg Mean pulmonary artery pressure 40.00 mmHg Diastolic pulmonary artery pressure 30.00 mmHg Pumonary artery pulse pressure 31.00 mmHg Pulmonary artery occlusion pressure (mean) 2.00 mmHg Pulmonary artery occlusion pressure (end-expiration) mid a wave 5.00 mmHg Pulmonary artery occlusion pressure (end-expiration) peak v wave NA Cardiac output (thermodilution) 5.60 L/min Cardiac index (thermodilution) 3.28 L/min/m2 Pulmonary vascular resistance 6.25 Wood Unit WAVEFORMS: Right Atrial Pressure: Pulmonary Artery Pressure: PAWP: RV PullBack: Estimated Blood Loss: Scant Specimens: Mixed venous blood gases. Complications: None. Introducer removed without complications. Pressure applied for 10 minutes. No Bleeding. Condition of Patient After Procedure: stable Summary: Precapillary PH with preserved cardiac index. Negative nitric oxide response. 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 Imaging consistent with underlying ILD - With regards to PH, +++ clinical improvement with tyvaso. Recommend continuation of 64 mcgs QID as tolerated. - Continue supplemental O2 at 4-6LNC - Recommend continuation of Advair 500/50 BID as ordered - Follow up in 4 months -Advised flu vaccine-pt will discuss with PCP--Continue lisinopril for BP control Electronically signed by Bassem Case APRN.CNS. Outpatient Counseling: I have personally spent 25 total minutes involved in the dihb-ca-ygqm care of patient. Greater than 50% of the time was spent counseling and/or coordinating care for the patient, the nature of which is noted above. The health conditions of this patient carry a high risk of complications, morbidity, and/or mortality. documented in this encounterMagruder Hospital12-03-2024 NoteHNO ID: [id number] Author: BASESM CASE APRN.CNS Service: ? Author Type: Nurse Specialist Type: Progress Notes Filed: 05/06/2024 10:53 Note Text: Summary: Exertional dyspnea , hypoxia Management of high risk medication ( Tyvaso) Chronic Care Clinic/CHF/Pulmonary Hypertension Clinic Chief Complaint Exertional dyspnea with hypoxia high risk medication management (Tyvaso) Ms. Andre is a 67 year old female patient who is known to the heart failure clinic and presents as follow-up for her recently diagnosed PAH-ILD. Patient was hospitalized for acute hypoxic respiratory failure -10/06 of this year in which a workup revealed the presence of significant interstitial lung disease/fibrosis on the CT scan as well as presence of pulmonary hypertension cardiac echo. Eventually the patient underwent a right heart catheterization which was impressive for precapillary PAH She was then subsequently started on Tyvaso DPI by Dr. Godwin. Patient states that she has done very well since starting Tyvaso DPI. She has noted significant improvement in her exertional dyspnea and fatigue. She is able to complete activities of routine daily living much easier and he feels overall much better. Patient's current dosage of Tyvaso DPI 64mcg 4 times daily She is doing very well with this. Coughing post treatment does not seem to be much of a problem. She uses an organic homey spray prn to soothe her throat. Patient has been maintained continuously on 5 L of oxygen per nasal cannula with an optimizer pendant. and she has shown marked improvement in energy and symptoms overall She denies any pedal edema, chest pain, shortness of breath, palpitations, fever, chills Her weight is stable at 153lbs Patient voices no complaints today She also denies diarrhea, palpitations, flushing orlightheadedness. Patient's current prescribed diuretic regimen is Lasix 40 mg p.o. daily. Patient actually is euvolemic today She tells me she does not need to take her Lasix on a daily basis and does not do so. She only takes Lasix when her her ankles are slightly swollen or she notices a slight increase in her weight. This is about once a week. I encouraged patient to at least try to take the Lasix every other day. Patient does weigh herself on a daily basis Other than the Tyvaso DPI the patient is on no additional PAH medications PAST MEDICAL HISTORY Diagnosis Date Allergic rhinitis, cause unspecified Essential hypertension, benign Family history of ischemic heart disease father age 50, brother age 42 Obesity, unspecified PAST SURGICAL HISTORY Procedure Laterality Date COLONOSCOPY FLX DX W/COLLJ SPEC WHEN PFRMD 11-01-12 PAST SURGICAL HISTORY OF 1992 REMOVAL OF BENIGN CYST-RIGHT SIDE OF NECK TONSILLECTOMY AND ADENOIDECTOMY AGE 12/1992 FAMILY HISTORY Problem Relation Age of Onset Heart Father [place] - first age 40's, CVA age 50 Stroke Father CVA - first age 42, CVA age 50 Hypertension Mother Diabetes Mother Heart Brother age 41; also heavy etoh use Heart Brother stented age 42 Hypertension Brother Breast Cancer Maternal Aunt x2 Heart Paternal Uncle x2 Allergies Mother Cancer Mother pancreatic cancer Social History Tobacco Use Smoking status: Never Substance Use Topics Alcohol use: No Drug use: No ALLERGIES Allergen Reactions Darvocet-N 100 [Pro* Unknown numbness Penicillins Hives Medications: Current Outpatient Medications Medication Sig Dispense Refill TYVASO DPI 64 mcg dry powder inhaler Inhale 64 mcg as instructed four times daily. RED BEET ROOT-SOUR CANNON EXT ORAL Take by mouth. albuterol HFA (PROVENTIL HFA, VENTOLIN HFA) 90 mcg/actuation inhaler Inhale 2 Puffs as instructed every 6 hours as needed for wheezing/shortness of breath. 1 Each 5 fluticasone-salmeterol (ADVAIR DISKUS) 500-50 mcg/dose dsdv Inhale 1 Puff as instructed two times a day. Rinse and gargle mouth with water after each use. 60 Each 5 OXYGEN, HOME THERAPY, Inhale 6-10 L/min as instructed continuous. dilTIAZem LA (CARDIZEM LA) 240 mg 24 hr tablet Take 240 mg by mouth once daily. acetaminophen (TYLENOL ARTHRITIS PAIN) 650 mg CR tablet Take 1 tablet by mouth every 8 hours as needed for pain. cyanocobalamin (VITAMIN B-12) 1,000 mcg tab Take 1,000 mcg by mouth once daily. Chromium Picolinate 200 mcg tab Take 1 tablet by mouth once daily. vitamin E, dl,tocopheryl acet, (VITAMIN E, DL, ACETATE,) 180 mg (400 unit) capsule Take 1 capsule by mouth once daily. Glucosamine-Chondroitin (OSTEO BI-FLEX) 250-200 mg tab Take 2 tablets by mouth once daily. potassium chloride ER (KLOR-CON) 20 mEq tablet Take 1 tablet by mouth once daily. calcium carb-D3-mag ox-zinc ox (NISH MAG ZINC PLUS D3) 333 mg-133 unit -133 m (more content not included)...[facility]11-26-2024 Telephone encounter Note* Telephone Encounter - Zonia Tucker - 04/22/2024 10:34 AM EST PAP Supply order and ARTUR notes faxed to [facility]. Zonia Tucker [facility]11-26-[facility] Miscellaneous Notes* Telephone Encounter - Zonia Tucker - 04/22/2024 10:34 AM EST PAP Supply order and ARTUR notes faxed to [facility]. Zonia Tucker documented in this encounterMagruder Hospital11-25-2024 Instructions* Patient Instructions* Heri Tabor MD - 04/21/2024 2:09 PM EST We discussed Inspire today and that we usually like to reserve that for patients who are not tolerating the PAP mask or device and have severe sleep apnea not adequately treated by CPAP or BiPAP which hers is. It seems the majority of what Makenna is experiencing is the the tubing and connections becoming rearranged while she is sleeping. Her download looks good except for a moderate air leak around the mask. Her AHI and MODESTA are both normal. I am happy to refer her for Inspire surgery evaluation either her in [place] or [place], but would like to make sure we can't satisfy her with a more comfortable BiPAP blow up operator than what she has had thus far. She is agreeable with that. Will follow up in 2-3 months and if she decides she adamantly wants a surgical evaluation....then Terence happy to do that..... documented in this encounterMagruder Hospital11-25-2024 Nurse Note* Maricarmen Fragoso - 04/21/2024 12:51 PM EST 04/21/2024 [place] Sitting and reading 0 - Never Watching TV 2 - Moderate Chance Sitting/inactive in public place 0 - Never Car for an hour without break 1 - Slight Chance Lying down for rest (afternoon) 0 - Never Sitting and talking to someone 0 - Never Sitting quietly after lunch (no alcohol) 0 - Never In car, stopped in traffic 0 - Never Neck Cir 14.7in [facility]11-25-[facility] Nurse Note* Maricarmen Fragoso - 04/21/2024 12:51 PM EST 04/21/2024 [place] Sitting and reading 0 - Never Watching TV 2 - Moderate Chance Sitting/inactive in public place 0 - Never Car for an hour without break 1 - Slight Chance Lying down for rest (afternoon) 0 - Never Sitting and talking to someone 0 - Never Sitting quietly after lunch (no alcohol) 0 - Never In car, stopped in traffic 0 - Never Neck Cir 14.7in documented in this encounterMagruder Hospital11-25-2024 NoteHNO ID: [id number] Author: HERI TABOR MD Service: ? Author Type: Physician Type: Progress Notes Filed: 04/21/2024 17:43 Note Text: PULMONARY MEDICINE CONSULT HISTORY AND PHYSICAL Patient Name: Makenna Andre PRIMARY CARE PHYSICIAN: Hoda Del Rosario MD REFERRING PHYSICIAN: Amol Godwin MD CHIEF COMPLAINT: I'd like to look at Inspire for my sleep apnea. HISTORY OF PRESENT ILLNESS: Makenna Andre is a 68 year old female, There were no vitals taken for this visit., with a history of CHRIS diagnosed in [place] in December 2022 and has been on BiPAP 15/11cm since then with good results but having extreme difficulty with mask fitting and the tubing connections. . This patient is here for first Pulmonary office visit and consultation I reviewed available objective data including imaging as available. Main symptoms include: Feels uncomfortable with the set up of the tubings and connections getting tangled up at night and she pulls them off and apart. She uses a small reject opener and filler apparatus and says I can't stand the mask. 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 The headpiece is particularly uncomfortable. DME is [employer]. Sides sleeper. Bedtime at 11P-MN and is asleep in 15-20mins. Pretty much sleeps through the night. Not a restless sleeper. Nocturia 0-1x +/- EDS. Says takes naps daily for 20 minutes and they are refreshing. Snoring and awkward loud breathing are gone since using BiPAP 15/11cm Feels rested in the AM and no AM headache or brain fog. May have nosebleeds from the mask. Tonsils out at age 34years. Followed by Dr. 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 Takes Tyvaso DPI at 4 puffs qid. Says has helped her SOB and increased her activity level. She did use to own cockatiels at home. 04/15/24 Download: BiPAP 15/11cm 30/ days used. 7hrs 58mins Leaks: Median 24.9 95th%: 53.2 Maximum 64.5l/min AHI 1.1 MODESTA 0 PAST MEDICAL HISTORY Diagnosis Date Allergic rhinitis, cause unspecified Essential hypertension, benign Family history of ischemic heart disease father age 50, brother age 42 Obesity, unspecified PAST SURGICAL HISTORY Procedure Laterality Date COLONOSCOPY FLX DX W/COLLJ SPEC WHEN PFRMD 11-01-12 PAST SURGICAL HISTORY OF 1992 REMOVAL OF BENIGN CYST-RIGHT SIDE OF NECK TONSILLECTOMY AND ADENOIDECTOMY AGE 12/> 1992 FAMILY HISTORY Problem Relation Age of Onset Heart Father [place] - first age 40's, CVA age 50 Stroke Father CVA - first age 42, CVA age 50 Hypertension Mother Diabetes Mother Heart Brother age 41; also heavy etoh use Heart Brother stented age 42 Hypertension Brother Breast Cancer Maternal Aunt x2 Heart Paternal Uncle x2 Allergies Mother Cancer Mother pancreatic cancer No reported family hx of ILD fibrosis, PAH, Tb, lung cancer, A1AT deficiency Social History Tobacco Use Smoking status: Never Substance Use Topics Alcohol use: No Drug use: No Ambulatory, see vaccine HX, 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 and lives in [place]. Former 1 PPD smoker who quit in her 20's. Occasional alcohol. FHx: Negative for SRBDs. CURRENT OUTPATIENT MEDICATIONS: albuterol HFA (PROVENTIL HFA, VENTOLIN HFA) 90 mcg/actuation inhaler Inhale 2 Puffs as instructed every 6 hours as needed for wheezing/shortness of breath. fluticasone-salmeterol (ADVAIR DISKUS) 500-50 mcg/dose dsdv Inhale 1 Puff as instructed two times a day. Rinse and gargle mouth with water after each use. OXYGEN, HOME THERAPY, Inhale 6-10 L/min as instructed continuous. dilTIAZem LA (CARDIZEM LA) 240 mg 24 hr tablet Take 240 mg by mouth once daily. acetaminophen (TYLENOL ARTHRITIS PAIN) 650 mg CR tablet Take 1 tablet by mouth every 8 hours as needed for pain. cyanocobalamin (VITAMIN B-12) 1,000 mcg tab Take 1,000 mcg by mouth once daily. Chromium Picolinate 200 mcg tab Take 1 tablet by mouth once daily. vitamin E, dl,tocopheryl acet, (VITAMIN E, DL, ACETATE,) 180 mg (400 unit) capsule Take 1 capsule by mouth once daily. Glucosamine-Chondroitin (OSTEO BI-FLEX) 250-200 mg tab Take 2 tablets by mouth once daily. potassium chloride ER (KLOR-CON) 20 mEq tablet Take 1 tablet by mouth once daily. calcium carb-D3-mag ox-zinc ox (NISH MAG ZINC PLUS D3) 333 mg-133 unit -133 mg-5 mg tab Take 1 tablet by mouth once daily. levothyroxine (SYNTHROID) 50 mcg tablet Take 1 tablet by mouth daily before breakfast. pravastatin (PRAVACHOL) 20 mg tablet Take 1 tablet by mouth once daily. turmeric root extract 500 mg cap Take 1 capsule by mouth once daily. vit A and D3 in cod liver oil 1,250-135 unit cap Take 1 capsule by mouth once daily. furosemide (LASIX) 40 mg tablet Take 1 tablet by mouth once daily. Echinacea 500 mg cap Take 1 capsule by mouth two times a day. lisinopril 10 mg tablet Take 1 tablet by mouth on (more content not included)... [facility]11-25-2024 History of Present illness Narrative* Heri Tabor MD - 04/21/2024 11:46 AM EST Images from the original note were not included. PULMONARY MEDICINE CONSULT HISTORY AND PHYSICAL Patient Name: Makenna Andre PRIMARY CARE PHYSICIAN: Hoda Del Rosario MD REFERRING PHYSICIAN: Amol Godwin MD CHIEF COMPLAINT: I'd like to look at Inspire for my sleep apnea. HISTORY OF PRESENT ILLNESS: Makenna Andre is a 68 year old female, There were no vitals taken for this visit., with a history of CHRIS diagnosed in [place] in December 2022 and has been on BiPAP 15/11cm since then with good results but having extreme difficulty with mask fitting and the tubing connections. . This patient is here for first Pulmonary office visit and consultation I reviewed available objective data including imaging as available. Main symptoms include: Feels uncomfortable with the set up of the tubings and connections getting tangled up at night and she pulls them off and apart. She usesa small reject opener and filler apparatus and says I can't stand the mask. 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 The headpiece is particularly uncomfortable. DME is [employer]. Sides sleeper. Bedtime at 11P-MN and is asleep in 15-20mins. Pretty much sleeps through the night. Not a restless sleeper. Nocturia 0-1x +/- EDS. Says takes naps daily for 20 minutes and they are refreshing. Snoring and awkward loud breathing are gone since using BiPAP 15/11cm Feels rested in the AM and no AM headache or brain fog. May have nosebleeds from the mask. Tonsils out at age 34years. Followed by Dr. 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 Takes Tyvaso DPI at 4 puffs qid. Says has helped her SOB and increased her activity level. She did use to own cockatiels at home. 04/15/24 Download: BiPAP 15/11cm 30/30 days used. 7hrs 58mins Leaks: Median 24.9 95th%: 53.2 Maximum 64.5l/min AHI 1.1 MODESTA 0 PAST MEDICAL HISTORY Diagnosis Date Allergic rhinitis, cause unspecified Essential hypertension, benign Family history of ischemic heart disease father age 50, brother age 42 Obesity, unspecified PAST SURGICAL HISTORY Procedure Laterality Date COLONOSCOPY FLX DX W/COLLJ SPEC WHEN PFRMD 11-01-12 PAST SURGICAL HISTORY OF 1992 REMOVAL OF BENIGN CYST-RIGHT SIDE OF NECK TONSILLECTOMY & ADENOIDECTOMY AGE 12/> 1992 FAMILY HISTORY Problem Relation Age of Onset Heart Father [place] - first age 40's, CVA age 50 Stroke Father CVA - first age 42, CVA age 50 Hypertension Mother Diabetes Mother Heart Brother age 41; also heavy etoh use Heart Brother stented age 42 Hypertension Brother Breast Cancer Maternal Aunt x2 Heart Paternal Uncle x2 Allergies Mother Cancer Mother pancreatic cancer No reported family hx of ILD fibrosis, PAH, Tb, lung cancer, A1AT deficiency Social History Tobacco Use Smoking status: Never Substance Use Topics Alcohol use: No Drug use: No Ambulatory, see vaccine HX, Occupation Retired from [employer]. and lives in [place]. Former 1 PPD smoker who quit in her 20's. Occasional alcohol. FHx: Negative for SRBDs. CURRENT OUTPATIENT MEDICATIONS: albuterol HFA (PROVENTIL HFA, VENTOLIN HFA) 90 mcg/actuation inhaler Inhale 2 Puffs as instructed every 6 hours as needed for wheezing/shortness of breath. fluticasone-salmeterol (ADVAIR DISKUS) 500-50 mcg/dose dsdv Inhale 1 Puff as instructed two times aday. Rinse and gargle mouth with water after each use. OXYGEN, HOME THERAPY, Inhale 6-10 L/min as instructed continuous. dilTIAZem LA (CARDIZEM LA) 240 mg 24 hr tablet Take 240 mg by mouth once daily. acetaminophen (TYLENOL ARTHRITIS PAIN) 650 mg CR tablet Take 1 tablet by mouth every 8 hours as needed for pain. cyanocobalamin (VITAMIN B-12) 1,000 mcg tab Take 1,000 mcg by mouth once daily. Chromium Picolinate 200 mcg tab Take 1 tablet by mouth once daily. vitamin E, dl,tocopheryl acet, (VITAMIN E, DL, ACETATE,) 180 mg (400 unit) capsule Take 1 capsule by mouth once daily. Glucosamine-Chondroitin (OSTEO BI-FLEX) 250-200 mg tab Take 2 tablets by mouth once daily. potassium chloride ER (KLOR-CON) 20 mEq tablet Take 1 tablet by mouth once daily. calcium carb-D3-mag ox-zinc ox (NISH MAG ZINC PLUS D3) 333 mg-133 unit -133 mg-5 mg tab Take 1 tablet by mouth once daily. levothyroxine (SYNTHROID) 50 mcg tablet Take 1 tablet by mouth daily before breakfast. pravastatin (PRAVACHOL) 20 mg tablet Take 1 tablet by mouth once daily. turmeric root extract 500 mg cap Take 1 capsule by mouth once daily. vit A and D3 in cod liver oil 1,250-135 unit cap Take 1 capsule by mouth once daily. furosemide (LASIX) 40 mg tablet Take 1 tablet by mouth once daily. Echinacea 500 mg cap Take 1 capsule by mouth two times a day. lisinopril 10 mg tablet Take 1 tablet by mouth once daily. Cholecalciferol, Vitamin D3, 2,000 unit cap Take 1 tablet by mouth once daily. vitamin A-ascorbic acid-vitamin E-minerals (OCUVITE) Tab Take 1 tablet by mouth once daily. ZTU-Lpgifnxxn-Pxnqbarxtuphr (ALLERGY SINUS PE) 2-5-325 mg ORAL Tab Take by mouth as needed. GARLIC 1,000 MG CAP Take one tablet daily. aspirin(ADULT LOW DOSE ASPIRIN 81 MG TAB, DELAYED RELEASE) Take one(1) tablet daily. multivitamins(DAILY MULTIVITAMIN TAB) Take one(1) tablet daily. ALLERGIES: ALLERGIES Allergen Reactions Darvocet-N 100 [Pro* Unknown numbness Penicillins Hives REVIEW OF SYSTEMS Constitutional: Well developed. no acute distress throughout the interview. No dyspnea throughout the interview; not acutely ill. No fevers, chills, night sweats HEENT: No frequent or significant headaches, changes in hearing or vision, tinnitus, epistaxis or other nasal problems, normal pharynx. Good voice. Denies lymphadenopathy; denies allergic rhinitis. RESPIRATORY: Yes dyspnea, Yes wheezing, No hemoptysis, No excessive phlegm, No nonpurulent phlegm, No pleuritic pain, Yes RODRIGUEZ CHRIS: Yes apnea, No hypersomnolence, Yes BiPAP, No snoring, No unusual breathing patterns during sleep, No nocturia, Yes frequent awakenings, No morning fatigue. CARDIOVASCULAR: No palpitations, No heart failure, No edema, No chest pain, No stents. No hx CABG GASTROINTESTINAL: No abdominal discomfort, No blood in stools or black stools or change in bowel habits, weight stable. No liver failure or active hepatitis. No biliary colic. GENITOURINARY: No history of dysuria, urgency, frequency, or incontinence, mass, hematuria, or pyuria CHEMICAL LABORATORY TECHNICIAN: Not reviewed MUSCULOSKELETAL: No for joint pain or swelling, muscle aches, bone pain, serositis or scleroderma or other connective tissue diseases; no major arthralgias NEUROLOGIC: No focal numbness or weakness, headaches, dizziness or syncope or near-syncope. No recent CVA/TIA. No gait disturbance. No seizures. SKIN: No for lesions, rash, and itching. No jaundice PSYCHIATRIC: No sleep disturbance, mood disorder, depression, manic episodes and recent psychosocial stressors. HEMATOLOGIC/LYMPHATIC/IMMUNOLOGIC: No anemia, No hx lymphoma, No bleeding or clotting issues. ENDOCRINE: Weight stable, No for cold or heat intolerance, polyuria, polydipsia and goiter. denies thyroid issues. No fatigue. The remainder of the ROS was negative or as per documentation. PHYSICAL EXAMINATION: VITAL SIGNS: LMP 07/05/2009 BP-170/70 96 24 92%. 158lbs. Neck size is 14.7 inches. ESS is 3. General appearance: Well-developed well-nourished Age appropriate female. Cordial. Comprehends well. Good hygiene. Skin: Normal turgor. Not pallorous. Not diaphoretic. No jaundice. No scars. No rashes. Eyes: Pupils equally reactive to light. Midline. No jaundice. Vision reasonable grossly. EOMI ENT: No palpable lymphadenopathy. Hearing intact. Normocephalic. No neck scar. No thyromegaly. Gooddentition in the top and lower plates. No macroglossia. Supple neck. No carotid bruits. No venous hums. No retrognathia. Grade IV airway score. Heme/Lymph: No significant neck adenopathy. Negative JVD in the setting position Lungs: Bibasilar crackles with scattered I/E squeaks. Bilaterally both A&P. Fair inspiratory capacity. No overt wheeze. No pleural rub. Heart:: Regular rate and rhythm. Normal heart tones. No significant rub, or gallop. Murmur No. Edema- no. Normal P2 . No rub or caio. ABD: Abdomen soft, non-tender. Bowel sounds normal. No masses, organomegaly. No bruits. Increased central girth Musculoskeletal: nl gait. No limp. Ambulation normal. Looks comfortable with walking. Extremities without cyanosis or clubbing. No deformities, No edema, or skin discoloration. Good capillary refill PSYCH: Alert. Responsive. Seems to comprehend reasonably well. Interactive. Engaged- yes, with goodrecall. Neuro: Nonfocal. Alert. Oriented. Speech intact. No gross cerebellar dysfunction. Gait observed as above. CN II-XII grossly intact. Sensory and motor function grossly within normal limits. DATA: Diagnostic tests reviewed for today's visit, films/specimens were personally reviewed by me: LAST LAB RESULTS: No results found for this basename: inr:1,ptsec:1 Glucose (mg/dL) Date Value 10/05/2023 134 08/13/2013 91 Potassium (mmol/L) Date Value 10/05/2023 4.2 08/13/2013 3.5 Sodium (mmol/L) Date Value 10/05/2023 136 08/13/2013 141 Chloride (mmol/L) Date Value 10/05/2023 94 08/13/2013 100 CO2 (mmol/L) Date Value 10/05/2023 24 08/13/2013 27 Creatinine (mg/dL) Date Value 10/05/2023 0.61 08/13/2013 0.58 BUN (mg/dL) Date Value 10/05/2023 19 08/13/2013 18 Anion Gap (mmol/L) Date Value 10/05/2023 18 08/13/2013 14 Calcium (mg/dL) Date Value 08/13/2013 9.7 Calcium, Total (mg/dL) Date Value 10/05/2023 9.8 Protein, Total (g/dL) Date Value 08/21/2012 7.7 Albumin (g/dL) Date Value 08/21/2012 4.0 Bilirubin, Total (mg/dL) Date Value 08/21/2012 0.4 Alkaline Phosphatase (U/L) Date Value 08/21/2012 95 AST (U/L) Date Value 08/21/2012 13 ALT (U/L) Date Value 08/21/2012 18 Glucose Date Value Ref Range Status 10/05/2023 134 (H) 74 - 99 mg/dL Final Comment: The [place] [employer] (ADA) provides guidance for cutoff values for fasting glucose andrandom glucose. The ADA defines fasting as no caloric intake for at least 8 hours. Fasting plasma glucose results between 100 to 125 mg/dL indicate increased risk for diabetes (prediabetes). Fasting plasma glucose results greater than or equal to 126 mg/dL meet the criteria for diagnosis of diabetes. In the absence of unequivocal hyperglycemia, results should be confirmed by repeat testing. In a patient with classic symptoms of hyperglycemia or hyperglycemic crisis, random plasma glucose results greater than or equal to 200 mg/dL meet the criteria for diagnosis of diabetes. Reference: Standards of Medical Care in Diabetes 2016, [place] [employer]. Diabetes Care. 2016.39(Suppl 1). CBC with diff: WBC 10.87 10/05/2023 RBC 4.53 10/05/2023 Hemoglobin 13.6 10/05/2023 Hematocrit 43.3 10/05/2023 MCV 95.6 10/05/2023 MCH 30.0 10/05/2023 MCHC 31.4 10/05/2023 RDW-CV 13.8 10/05/2023 Platelet Count 334 10/05/2023 MPV 9.2 10/05/2023 Neutrophils % 73.1 10/02/2023 Lymphocytes % 17.3 10/02/2023 Monocytes % 6.5 10/02/2023 Eosinophils % 2.2 10/02/2023 Basophils % 0.6 10/02/2023 Abs Neut 6.50 10/02/2023 Abs Day 0.58 10/02/2023 Abs Eosin 0.20 10/02/2023 Abs Baso 0.05 10/02/2023 OTHER TESTING: CT chest: 10/02/2023 5:17 PM - Radiology, [place] In Impression IMPRESSION: 1. No CT evidence of pulmonary embolism. 2. Somewhat mosaic lung attenuation pattern which can be seen with small airways disease. 3. Scattered reticular and groundglass densities which may represent areas of inflammation/atelectasis. There may be a component component of chronic interstitial lung disease/pulmonary fibrosis. Follow-up CT may be helpful for further evaluation. 4. Mediastinal and hilar lymphadenopathy. Chest xray: 10/06/23: RESULT: Lines, tubes, and devices: None. Lungs and pleura: Mixed interstitial and airspace opacity is again present in both lungs. This is seen diffusely within the right lung, and within the left mid and lower lung. The findings are similar to the previous chest x-ray performed on 10/02/2023, and nonspecific. No evidence of a pleural effusion or pneumothorax. Cardiomediastinal silhouette: Cardiac size is within normal limits. Calcified atherosclerotic disease is present at the aortic arch. Bones and soft tissues: Right convex thoracic scoliosis. Mild multilevel thoracic spine. Disc disease. Chronic appearing compression deformity noted at T12. Heart echo: 09/22/22 in [place] LVEF 60%. Mildly dilated RV with decreased RVSF Biopsy results: SPIROMETRY - BASELINE AND POST DILATOR ([id number]) - ordered on 01/25/24 PRE-BRONCH POST-BRONCH Pre LLN Pred ULN %Pred Post %Pred %Chg SPIROMETRY FVC (L) 1.67 1.83 2.57 3.33 65 2.05 79 14 FEV1 (L) 0.98 1.42 2.03 2.60 48 1.04 51 3 FEV1/FVC 0.58 0.67 0.79 0.90 73 0.51 63 -13 PEF L/s (L/sec) 3.11 3.87 5.48 7.09 56 3.49 63 12 FEF50 (L/sec) 0.43 1.37 2.98 4.59 14 0.78 26 81 FIF50 (L/sec) 1.35 2.02 49 FEF50/FIF50 0.32 90-100 0.39 21 FIVC (L) 1.00 1.02 1 KCL46-43 (L/sec) 0.23 0.88 1.86 3.23 12 0.32 17 37 Time (sec) 8.62 11.78 36 FET PEF (sec) 0.15 0.16 4 ALPA (L) 0.09 0.08 -3 Vol Extrap % (%) 5 4 -21 LUNG VOLUMES TGV (L) 1.45 1.84 2.70 3.56 53 ERV (L) 1.29 0.86 150 RV (Pleth) (L) 1.27 1.42 2.05 2.68 61 SVC (L) 2.59 1.83 2.57 3.33 100 IC (L) 1.30 1.71 76 TLC (Pleth) (L) 2.10 3.87 4.75 5.64 44 RV/TLC (Pleth) (%) 60 34 43 52 141 LUNG DIFFUSION DLCOunc (ml/min/mmHg) 10.33 13.74 19.91 26.08 51 VA (L) 4.03 3.63 4.73 5.84 85 DLunc/VA (ml/min/mmHg/L) 2.57 3.09 4.41 5.72 58 BHT (sec) 12.56 IVC (L) 1.03 Nichelle Nelson RPFT 04/09/2024 2:49 PM Attested RESPIRATORY THERAPY SIX MINUTE WALK TEST OXIMETRY REPORT Six Minute Walk Test for This Encounter Oxygen Device Liters FIO2 SpO2% HR Activity Feet Speed (MPH) Flag R/A 77 109 Resting NC 2 86 101 Resting NC 3 97 95 Resting NC 6 85 110 Six Minute Walk 520 1 NC 6 90 101 Recovery 1 minute post NC 6 97 102 Recovery 2 minute post NC 6 99 99 Recovery 3 minute post General Information Height Weight Pulse Oximetry Site Oximeter Pre Blood Pressure Post Blood Pressure Total Time Spent (min) 156.2 cm (5' 1.5) 71.4 kg (157 lb 6.5 oz) Forehead Masimo 180/80 155/79 30 _ Distance Walked (meters) Distance Walked (feet) Female Predicted Walk Distance (feet) Female Lower Limit of Normal (feet) Female % Predicted Total Duration Of The Stops (seconds) 158.5 520 1443.9 987.9 36 -- _ Lowest SpO2 During 6 Minute Walk Pre-Royer Dyspnea Rating Pre-Royer Fatigue Rating Post Royer Dyspnea Rating Post Royer Fatigue Rating 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 Attestation signed by Bertin Dolan MD at 04/11/2024 8:29 AM: The patient completed the six minute walk test with 1 stop. . The patient required Nasal Cannula Liters: 6 to complete the test. The distance the patient walked in six minutes is extremely reduced. This is the first time patient takes the six minute walk test. The patient perceived their dyspnea during the six minute walk test to be 1-Very slight on the modified Royer scale. The patient perceived their fatigue during the six minute walk test to be 0- Nothing at all on the modified Royer scale. I have reviewed the findings and made appropriate revisions as needed. SIGNATURE: Bertin Dolan MD PATIENT NAME: Makenna Andre DATE: April 11, 2024 TIME: 8:29 AM Medications reviewed Education provided today regarding the stated disease states IMPRESSIONS: 1. Z78.9 Difficulty using continuous positive airway pressure (CPAP) nasal mask (primary encounter diagnosis) Comment: Problem tolerating the set up with tubing and mask 2. G47.33 CHRIS treated with BiPAP Comment: Compliant 3. I27.21 PAH (pulmonary artery hypertension) ([facility]) Comment: Followed by Dr. Godwin and on Tyvaso-64 4. J84.9 ILD (interstitial lung disease) ([facility]) Comment: [place] to be c/w chronic HP 5. J96.11 Chronic hypoxemic respiratory failure ([facility]) Comment: On O2 at 4l/min via [employer] PLAN: We discussed Inspire today and that we usually like to reserve that for patients who are not tolerating the PAP mask or device and have severe sleep apnea not adequately treated by CPAP or BiPAP which hers is. It seems the majority of what Makenna is experiencing is the the tubing and connections becoming rearranged while she is sleeping. Her download looks good except for a moderate air leak around the mask. Her AHI and MODESTA are both normal. I am happy to refer her for Inspire surgery evaluation either her in [place] or [place], but would like to make sure we can't satisfy her with a more comfortable BiPAP blow up operator than what she has had thus far. She is agreeable with that. Will follow up in 2-3 months and if she decides she adamantly wants a surgical evaluation....then Terence happy to do that.... Written and verbal health teaching given to patient, patient verbalizes understanding and agrees with treatment plan. Electronically Signed: Heri Tabor MD April 21, 2024 [facility] Telephone encounter Note * Telephone Encounter - Amol Godwin MD - 04/15/2024 12:55 PM EST Called patient to review 6MWT. Shows increase supplemental O2 needs to around 6LNC, though would also want ambulatory O2 evaluation. Patient has concentrator that can go to 10LNC. I recommend she increase to 6LNC with exertion, however patient states she hates the increased flow and can't tolerate higher flow rates. Will then recommend getting NC reservoir. Will discuss with office staff Patient on 64 mcg QID of Tyvaso and notices marked improvement specifically improved exertional dyspnea and energy level. Recommend continuation of therapy and follow up with Faustina Case (04/29) and myself 05/2024 [facility] Miscellaneous Notes* Telephone Encounter - Amol Godwin MD - 04/15/2024 12:55 PM EST Called patient to review 6MWT. Shows increase supplemental O2 needs to around 6LNC, though would also want ambulatory O2 evaluation. Patient has concentrator that can go to 10LNC. I recommend she increase to 6LNC with exertion, however patient states she hates the increased flow and can't tolerate higher flow rates. Will then recommend getting NC reservoir. Will discuss with office staff Patient on 64 mcg QID of Tyvaso and notices marked improvement specifically improved exertional dyspnea and energy level. Recommend continuation of therapy and follow up with Faustina Case (04/29) and myself 05/2024 documented in this encounterMag[facility]11-13-2024 NoteHNO ID: [id number] Author: NICHELLE NELSON RPFT Service: ? Author Type: Respiratory Therapist Type: Procedures Filed: 04/09/2024 14:49 Note Text: Attestation signed by Bertin Dolan MD at 04/11/2024 8:29 AM The patient completed the six minute walk test with 1 stop. . The patient required Nasal Cannula Liters: 6 to complete the test. The distance the patient walked in six minutes is extremely reduced. This is the first time patient takes the six minute walk test. The patient perceived their dyspnea during the six minute walk test to be 1-Very slight on the modified Royer scale. The patient perceived their fatigue during the six minute walk test to be 0-Nothing at all on the modified Royer scale. I have reviewed the findings and made appropriate revisions as needed. SIGNATURE: Bertin Dolan MD PATIENT NAME: Makenna Andre DATE: April 11, 2024 TIME: 8:29 AM RESPIRATORY THERAPY SIX MINUTE WALK TEST OXIMETRY REPORT Six Minute Walk Test for This Encounter Oxygen Device Liters FIO2 SpO2% HR Activity Feet Speed (MPH) Flag R/A 77 109 Resting NC 2 86 101 Resting NC 3 97 95 Resting NC 6 85 110 Six Minute Walk 520 1 NC 6 90 101 Recovery 1 minute post NC 6 97 102 Recovery 2 minute post NC 6 99 99 Recovery 3 minute post General Information Height Weight Pulse Oximetry Site Oximeter Pre Blood Pressure Post Blood Pressure Total Time Spent (min) 156.2 cm (5' 1.5) 71.4 kg (157 lb 6.5 oz) Forehead Masimo 180/80 155/79 30 _ Distance Walked (meters) Distance Walked (feet) Female Predicted Walk Distance (feet) Female Lower Limit of Normal (feet) Female % Predicted Total Duration Of The Stops (seconds) 158.5 520 1443.9 987.9 36 -- _ Lowest SpO2 During 6 Minute Walk Pre-Royer Dyspnea Rating Pre-Royer Fatigue Rating Post Royer Dyspnea Rating Post Royer Fatigue Rating 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 Author Type: Respiratory Therapist Type: Progress Notes Filed: 04/09/2024 14:49 Note Text: PULM FUNCTION: Provider: Amol Godwin MD Assisting Tech: Nichelle Nelson RPFT 6 [facility]: [facility] History of Present illness Narrative * Nichelle Nelson RPFT - 04/09/2024 2:44 PM EST PULM FUNCTION: Provider: Amol Godwin MD Assisting Tech: Nichelle Nelson RPFT 6 MW: 1 documented in this encounterMagruder Hospital09-30-2024 Instructions* Patient Instructions* Jason Macias APRN.CNP - 02/25/2024 3:21 PM EDT -Continue Advair/Wixela Diskus - 1 inhalation twice a day. Rinse, gargle and spit with water after use to prevent oral thrush. -Start Albuterol (Proair, Proventil, or Ventolin) MDI - 1-2 puffs every 6 hours as needed for wheezing or shortness of breath. You can also use 1-2 puffs ten minutes before exercise or exertion. Use with your spacer. -Schedule CT chest -Schedule with sleep medicine physician -Schedule echo, BNP blood work, and six minute walk test prior to next visit with Dr. Godwin documented in this encounterMagruder Hospital09-30-2024 History of Present illness Narrative* Jason Macias APRN.RAOUL - 02/25/2024 2:30 PM EDT Images from the original note were not included. Patient: Makenna Andre PCP: Hoda Del Rosario MD CC: review PFTs HPI: Makenna Andre is a 68 year old female former smoker with PMH significant for pulmonary hypertension, ILD, HTN, chronic respiratory failure, allergic rhinitis. Last Pulmonary Clinic visit was with Dr. Godwin on 10/24/2023. The plan from this office visit was: -Obtain PFTs - Will discuss with ILD multidisciplinary team - With regards to PAH, clinical improvement with Tyvaso. Recommend ongoing up titration to 64 mcg 4times a day as tolerated. Will increase dose every 4 weeks as tolerated - Obtain 6-minute walk test, ambulatory O2 eval - Continue supplemental O2 at 4 to 6 L - Recommend continuation of Advair 500 twice daily as ordered Today, the patient feels okay since last office visit. Admits to occasional cough. Denies SOB, wheezing, ONEAL, sore throat, LE edema, chest pain/tightness, sinus congestion, rhinorrhea, or PND Wears BiPAP with all sleep with 4L bled in Wears 3-4LNC with rest DME: [employer] Current therapy: Wixela 500 Tyvaso 64 mcgs QID Had significant environmental exposure. 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 ROS: See HPI PAST MEDICAL HISTORY Diagnosis Date Allergic rhinitis, cause unspecified Essential hypertension, benign Family history of ischemic heart disease father age 50, brother age 42 Obesity, unspecified Allergies: Darvocet-N 100 [Pro* Unknown Comment:numbness Penicillins Hives OXYGEN, HOME THERAPY, Inhale 6-10 L/min as instructed continuous. dilTIAZem LA (CARDIZEM LA) 240 mg 24 hr tablet Take 240 mg by mouth once daily. acetaminophen (TYLENOL ARTHRITIS PAIN) 650 mg CR tablet Take 1 tablet by mouth every 8 hours as needed for pain. cyanocobalamin (VITAMIN B-12) 1,000 mcg tab Take 1,000 mcg by mouth once daily. Chromium Picolinate 200 mcg tab Take 1 tablet by mouth once daily. vitamin E, dl,tocopheryl acet, (VITAMIN E, DL, ACETATE,) 180 mg (400 unit) capsule Take 1 capsule by mouth once daily. Glucosamine-Chondroitin (OSTEO BI-FLEX) 250-200 mg tab Take 2 tablets by mouth once daily. potassium chloride ER (KLOR-CON) 20 mEq tablet Take 1 tablet by mouth once daily. calcium carb-D3-mag ox-zinc ox (NISH MAG ZINC PLUS D3) 333 mg-133 unit -133 mg-5 mg tab Take 1 tablet by mouth once daily. levothyroxine (SYNTHROID) 50 mcg tablet Take 1 tablet by mouth daily before breakfast. pravastatin (PRAVACHOL) 20 mg tablet Take 1 tablet by mouth once daily. turmeric root extract 500 mg cap Take 1 capsule by mouth once daily. vit A and D3 in cod liver oil 1,250-135 unit cap Take 1 capsule by mouth once daily. furosemide (LASIX) 40 mg tablet Take 1 tablet by mouth once daily. fluticasone-salmeterol (ADVAIR) 500-50 mcg/dose dsdv Inhale 1 Puff as instructed two times a day. Echinacea 500 mg cap Take 1 capsule by mouth two times a day. lisinopril 10 mg tablet Take 1 tablet by mouth once daily. Cholecalciferol, Vitamin D3, 2,000 unit cap Take 1 tablet by mouth once daily. vitamin A-ascorbic acid-vitamin E-minerals (OCUVITE) Tab Take 1 tablet by mouth once daily. CEV-Touvshlfx-Seedggubqiacx (ALLERGY SINUS PE) 2-5-325 mg ORAL Tab Take by mouth as needed. GARLIC 1,000 MG CAP Take one tablet daily. aspirin(ADULT LOW DOSE ASPIRIN 81 MG TAB, DELAYED RELEASE) Take one(1) tablet daily. multivitamins(DAILY MULTIVITAMIN TAB) Take one(1) tablet daily. Social History Tobacco Use Smoking status: Never Substance Use Topics Alcohol use: No Drug use: No Family History Problem Relation Age of Onset Heart Father [place] - first age 40's, CVA age 50 Stroke Father CVA - first age 42, CVA age 50 Hypertension Mother Diabetes Mother Heart Brother age 41; also heavy etoh use Heart Brother stented age 42 Hypertension Brother Breast Cancer Maternal Aunt x2 Heart Paternal Uncle x2 Allergies Mother Cancer Mother pancreatic cancer PAST SURGICAL HISTORY Procedure Laterality Date COLONOSCOPY FLX DX W/COLLJ SPEC WHEN PFRMD 11-01-12 PAST SURGICAL HISTORY OF 1992 REMOVAL OF BENIGN CYST-RIGHT SIDE OF NECK TONSILLECTOMY & ADENOIDECTOMY AGE 12/> 1992 I reviewed the past medical history, family history, social history and surgical history with changes noted above and updated in EMR. IMMUNIZATIONS Immunization History Administered Date(s) Administered tetanus diphtheria pertussis (Tdap) vaccine, age 7+ yr (ADACEL, BOOSTRIX) 04/19/2009 PHYSICAL EXAMINATION: BP 161/72 (BP Site: Left Arm, BP Position: Sitting, BP Cuff Size: Regular Adult) Pulse 96 Temp 36.5 C (97.7 F) (Temporal) Ht 156.2 cm (5' 1.5) Wt 71.9 kg (158 lb 9.6 oz) LMP 07/05/2009 SpO2 91% BMI 29.48 kg/m O2: 4LNC Physical Exam Vitals reviewed. Constitutional: General: She is not in acute distress. Appearance: Normal appearance. She is not ill-appearing, toxic-appearing or diaphoretic. HENT: Head: Normocephalic and atraumatic. Nose: Nose normal. No congestion or rhinorrhea. Mouth/Throat: Lips: Toco. No lesions. Mouth: Mucous membranes are moist. Tongue: No lesions. Tongue does not deviate from midline. Palate: No lesions. Pharynx: Oropharynx is clear. Uvula midline. No pharyngeal swelling, oropharyngeal exudate, posterior oropharyngeal erythema or uvula swelling. Eyes: Conjunctiva/sclera: Conjunctivae normal. Pupils: Pupils are equal, round, and reactive to light. Cardiovascular: Rate and Rhythm: Normal rate and regular rhythm. Pulses: Normal pulses. Heart sounds: Normal heart sounds. No murmur heard. No friction rub. No gallop. Pulmonary: Effort: Pulmonary effort is normal. No respiratory distress. Breath sounds: Normal air entry. No stridor. Examination of the right-lower field reveals wheezing.Wheezing (inspiratory wheeze) present. No decreased breath sounds, rhonchi or rales. Musculoskeletal: Right lower leg: No edema. Left lower leg: No edema. Skin: General: Skin is warm and dry. Capillary Refill: Capillary refill takes less than 2 seconds. Neurological: General: No focal deficit present. Mental Status: She is alert and oriented to person, place, and time. Mental status is at baseline. Psychiatric: Mood and Affect: Mood normal. Behavior: Behavior normal. Thought Content: Thought content normal. Judgment: Judgment normal. 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 SP-The patient was identified by name and date of . The patient did not use any respiratory medications prior to testing. SP- Medications and Allergies were reviewed for possible drug interactions per policy. No contraindications or sensitivities were noted. SP - Aerosol given with 0.083% albuterol x 10 minutes. HR pre= 87/min, HR post= 87/min. SPStart - Suspected glottic closure due to abrupt early termination of expiration. All patient efforts were consistent. LV - Repeatability standards for lung volumes met. DLCO - The two largest DLCO values [were] repeatable. IMPRESSION: Spirometry indicates severe obstruction. Negative bronchodilator response. Decrease in TLC indicates restriction. The diffusing capacity (uncorrected for hemoglobin) is reduced. The reduced kCO (DLCO/VA) reflects an alteration of the normal transfer/diffusion of CO from the alveolar regions to the blood. Clinical correlation recommended. Electronically Signed On 01-29-2024 08:34:20 EDT by Arie Lee MD ID: [id number] Name: MAKENNA ANDRE Race: White Ht: 62.00 in Wt: 158.10 lbs Age: 68 Gender: Female : 1955 Dx: Idiopathic interstitial pulmonary disease_ Smoking Hx: Non-smoker Doctor: AMOL GODWIN Test Date: 01/25/2024 Site: [facility] Tech: Chichi Fu PRE-BRONCH POST-BRONCH Pre LLN Pred ULN %Pred Post %Pred %Chg SPIROMETRY FVC (L) 1.67 1.83 2.57 3.33 65 2.05 79 14 FEV1 (L) 0.98 1.42 2.03 2.60 48 1.04 51 3 FEV1/FVC 0.58 0.67 0.79 0.90 73 0.51 63 -13 PEF L/s (L/sec) 3.11 3.87 5.48 7.09 56 3.49 63 12 FEF50 (L/sec) 0.43 1.37 2.98 4.59 14 0.78 26 81 FIF50 (L/sec) 1.35 2.02 49 FEF50/FIF50 0.32 90-100 0.39 21 FIVC (L) 1.00 1.02 1 VVD05-92 (L/sec) 0.23 0.88 1.86 3.23 12 0.32 17 37 Time (sec) 8.62 11.78 36 FET PEF (sec) 0.15 0.16 4 ALPA (L) 0.09 0.08 -3 Vol Extrap % (%) 5 4 -21 LUNG VOLUMES TGV (L) 1.45 1.84 2.70 3.56 53 ERV (L) 1.29 0.86 150 RV (Pleth) (L) 1.27 1.42 2.05 2.68 61 SVC (L) 2.59 1.83 2.57 3.33 100 IC (L) 1.30 1.71 76 TLC (Pleth) (L) 2.10 3.87 4.75 5.64 44 RV/TLC (Pleth) (%) 60 34 43 52 141 LUNG DIFFUSION DLCOunc (ml/min/mmHg) 10.33 13.74 19.91 26.08 51 VA (L) 4.03 3.63 4.73 5.84 85 DLunc/VA (ml/min/mmHg/L) 2.57 3.09 4.41 5.72 58 BHT (sec) 12.56 IVC (L) 1.03 Comments: SP - Best test reported despite difficult testing session. SP-The patient was identified by name and date of . The patient did not use any respiratory medications prior to testing. SP- Medications and Allergies were reviewed for possible drug interactions per policy. No contraindications or sensitivities were noted. SP - Aerosol given with 0.083% albuterol x 10 minutes. HR pre= 87/min, HR post= 87/min. SPStart - Suspected glottic closure due to abrupt early termination of expiration. All patient efforts were consistent. LV - Repeatability standards for lung volumes met. DLCO - The two largest DLCO values [were] repeatable. CXR Last XR Chest - Impression Only XR CHEST 2V FRONTAL/LAT Exam End: 10/06/2023 8:27 AM (Final result) Impression: IMPRESSION: 1. Stable appearing nonspecific mixed interstitial and airspace opacities in both lungs. ... CT Chest CT Chest other findings: Last CT Chest - Impression Only CT CHEST W IVCON PE Exam End: 10/02/2023 4:37 PM (Final result) Impression: IMPRESSION: 1. No CT evidence of pulmonary embolism. 2. Somewhat mosaic lung attenuation pattern which can be seen with small airways disease. 3. Scattered reticular and groundglass densities which may represent areas of inflammation/atelectasis. There may be a component component of chronic interstitial lung disease/pulmonary fibrosis. Follow-up CT may be helpful for further evaluation. 4. Mediastinal and hilar lymphadenopathy. ... Echo Recent Results (from the past 4464 hour(s)) ECHO Collection Time: 10/03/23 10:59 AM Impression CONCLUSIONS: - Technically difficult exam due to body habitus. - Exam indication: Re-evaluation of known pulmonary hypertension (to guide therapy) - The left ventricle is normal in size. Left ventricular systolic function is normal. EF = 65 5% (2D biplane) Definity contrast used for endocardial border detection. Normal left ventricular diastolic function. - The right ventricle is mildly dilated. RV appears mildly dilated in limited accoustic views. RV systolic tissue Doppler velocity is 10.0 cm/s. - There are no significant valvular abnormalities. - There is no pericardial effusion. - No evidence of pulmonary hypertension by Doppler or appearance of the right-sided chambers. - The patient has not had a prior CC echocardiographic exam for comparison. * * * Final * * * Arterial blood gas: Lactate (POCT) Date Value Ref Range Status 10/02/2023 1.3 0.5 - 2.0 mmol/L Final RHC, 10/02/2023 Assessment/Plan ASSESSMENT/PLAN: 1. Pulmonary HTN (HCC) - ICD9: 416.8, ICD10: I27.20 (primary diagnosis) -Currently on Tyvaso 64 mcgs QID. Continue per PH clinic -Ordered echo, Nt Pro BNP for prior to next office visit with Dr. Godwin -Encouraged the patient to schedule 6MWT prior to visit with Dr. Godwin. This was previously ordered. - NT PRO BNP - ECHO 2. ILD (interstitial lung disease) (HCC) - ICD9: 515, ICD10: J84.9 -10/02/2023 CT chest notes scattered reticular and GG densities which may represent areas of inflammation/atelectasis. There may be a component of chronic interstitial lung disease/pulmonary fibrosis. Radiologist recommends a follow up CT chest for further evaluation. -Ordered repeat CT chest -Depending on results may benefit from seeing an ILD specialist - CT CHEST WO IVCON 3. Chronic hypoxemic respiratory failure (HCC) - ICD9: 518.83, 799.02, ICD10: J96.11 -Patient is compliant and benefits from supplemental oxygen. 4. Chronic obstructive pulmonary disease, unspecified COPD type (HCC) - ICD9: 496, ICD10: J44.9 -01/25/2024 PFTs indicate severe obstruction, an elevated RV/TLC indicating air trapping, and a DLCOof 51. Reviewed PFTs with the patient -Continue Advair/Wixela Diskus - 1 inhalation twice a day. Rinse, gargle and spit with water after use to prevent oral thrush. -Start Albuterol (Proair, Proventil, or Ventolin) MDI - 1-2 puffs every 6 hours as needed for wheezing or shortness of breath. You can also use 1-2 puffs ten minutes before exercise or exertion. Use with your spacer. -Discussed pulmonary rehab, but the patient doesn't think she would be able to travel to one of theoffered locations 3x a week. Can re-address at next visit. - ALBUTEROL SULFATE HFA 90 MCG/ACTUATION AEROSOL INHALER - FLUTICASONE 500 MCG-SALMETEROL 50 MCG/DOSE BLISTR POWDR FOR INHALATION 5. CHRIS (obstructive sleep apnea) - ICD9: 327.23, ICD10: G47.33 -Patient is using and benefiting from BiPAP with 4L oxygen bled into machine -Patient interested in sleep medicine consult - CONSULT TO SLEEP MEDICINE - ADULT RTC in [address] Godwin I have discussed the above recommendations in detail with the patient. Patient verbalizes understanding and is in agreement with plan as stated above. Jason Macias APRN.[facility] Pulmonary Medicine documented in this encounterMag[facility]09-30-[facility]24 NoteHNO ID: [id number] Author: JASON MACIAS APRN.CNP Service: ? Author Type: Nurse Practitioner Type: Progress Notes Filed: 02/25/2024 16:34 Note Text: Patient: Makenna Andre PCP: Hoda Del Rosario MD CC: review PFTs HPI: Makenna Andre is a 68 year old female former smoker with PMH significant for pulmonary hypertension, ILD, HTN, chronic respiratory failure, allergic rhinitis. Last Pulmonary Clinic visit was with Dr. Godwin on 10/24/2023. The plan from this office visit was: -Obtain PFTs - Will discuss with ILD multidisciplinary team - With regards to PAH, clinical improvement with Tyvaso. Recommend ongoing up titration to 64 mcg 4 times a day as tolerated. Will increase dose every 4 weeks as tolerated - Obtain 6-minute walk test, ambulatory O2 eval - Continue supplemental O2 at 4 to 6 L - Recommend continuation of Advair 500 twice daily as ordered Today, the patient feels okay since last office visit. Admits to occasional cough. Denies SOB, wheezing, ONEAL, sore throat, LE edema, chest pain/tightness, sinus congestion, rhinorrhea, or PND Wears BiPAP with all sleep with 4L bled in Wears 3-4LNC with rest DME: [employer] Current therapy: Wixela 500 Tyvaso 64 mcgs QID Had significant environmental exposure. 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 There was a lot of dust exposure Here with . ROS: See HPI PAST MEDICAL HISTORY Diagnosis Date Allergic rhinitis, cause unspecified Essential hypertension, benign Family history of ischemic heart disease father age 50, brother age 42 Obesity, unspecified Allergies: Darvocet-N 100 [Pro* Unknown Comment:numbness Penicillins Hives OXYGEN, HOME THERAPY, Inhale 6-10 L/min as instructed continuous. dilTIAZem LA (CARDIZEM LA) 240 mg 24 hr tablet Take 240 mg by mouth once daily. acetaminophen (TYLENOL ARTHRITIS PAIN) 650 mg CR tablet Take 1 tablet by mouth every 8 hours as needed for pain. cyanocobalamin (VITAMIN B-12) 1,000 mcg tab Take 1,000 mcg by mouth once daily. Chromium Picolinate 200 mcg tab Take 1 tablet by mouth once daily. vitamin E, dl,tocopheryl acet, (VITAMIN E, DL, ACETATE,) 180 mg (400 unit) capsule Take 1 capsule by mouth once daily. Glucosamine-Chondroitin (OSTEO BI-FLEX) 250-200 mg tab Take 2 tablets by mouth once daily. potassium chloride ER (KLOR-CON) 20 mEq tablet Take 1 tablet by mouth once daily. calcium carb-D3-mag ox-zinc ox (NISH MAG ZINC PLUS D3) 333 mg-133 unit -133 mg-5 mg tab Take 1 tablet by mouth once daily. levothyroxine (SYNTHROID) 50 mcg tablet Take 1 tablet by mouth daily before breakfast. pravastatin (PRAVACHOL) 20 mg tablet Take 1 tablet by mouth once daily. turmeric root extract 500 mg cap Take 1 capsule by mouth once daily. vit A and D3 in cod liver oil 1,250-135 unit cap Take 1 capsule by mouth once daily. furosemide (LASIX) 40 mg tablet Take 1 tablet by mouth once daily. fluticasone-salmeterol (ADVAIR) 500-50 mcg/dose dsdv Inhale 1 Puff as instructed two times a day. Echinacea 500 mg cap Take 1 capsule by mouth two times a day. lisinopril 10 mg tablet Take 1 tablet by mouth once daily. Cholecalciferol, Vitamin D3, 2,000 unit cap Take 1 tablet by mouth once daily. vitamin A-ascorbic acid-vitamin E-minerals (OCUVITE) Tab Take 1 tablet by mouth once daily. LGN-Cxmgceavh-Reiwssbkaijkj (ALLERGY SINUS PE) 2-5-325 mg ORAL Tab Take by mouth as needed. GARLIC 1,000 MG CAP Take one tablet daily. aspirin(ADULT LOW DOSE ASPIRIN 81 MG TAB, DELAYED RELEASE) Take one(1) tablet daily. multivitamins(DAILY MULTIVITAMIN TAB) Take one(1) tablet daily. Social History Tobacco Use Smoking status: Never Substance Use Topics Alcohol use: No Drug use: No Family History Problem Relation Age of Onset Heart Father [place] - first age 40's, CVA age 50 Stroke Father CVA - first age 42, CVA age 50 Hypertension Mother Diabetes Mother Heart Brother age 41; also heavy etoh use Heart Brother stented age 42 Hypertension Brother Breast Cancer Maternal Aunt x2 Heart Paternal Uncle x2 Allergies Mother Cancer Mother pancreatic cancer PAST SURGICAL HISTORY Procedure Laterality Date COLONOSCOPY FLX DX W/COLLJ SPEC WHEN PFRMD 11-01-12 PAST SURGICAL HISTORY OF 1992 REMOVAL OF BENIGN CYST-RIGHT SIDE OF NECK TONSILLECTOMY AND ADENOIDECTOMY AGE 12/> 1992 I reviewed the past medical history, family history, social history and surgical history with changes noted above and updated in EMR. IMMUNIZATIONS Immunization History Administered Date(s) Administered tetanus diphtheria pertussis (Tdap) vaccine, age 7+ yr (ADACEL, BOOSTRIX) 04/19/2009 PHYSICAL EXAMINATION: BP 161/72 (BP Site: Left Arm, BP Position: Sitting, BP Cuff Size: Regular Adult) Pulse 96 Temp 36.5 ?C (97.7 ?F) (Temporal) Ht 156.2 cm (5' 1.5) Wt 71.9 kg (158 lb 9.6 oz) LMP 07/05/2009 SpO2 91% BMI 29.48 kg/m? O2: 4LNC Physic (more content not included)...[facility]09-13-2024 Telephone encounter Note* Telephone Encounter - Claudia Galeano RN - 02/08/2024 4:12 PM EDT Patient is using 4L on home concentrator. Patient was Dc'd from in September and was on 6L and found thatto be too much. Patient is currently using 4L at home on concentrator. Patient has POC, but it only goes up to 3L. She needs a new Rx for one that goes higher (at least 4-5). Patient stated spoke with [employer] who produces inogen POC. Patient stated per [employer],in order to obtain a new POC that goes up to 5L, she requires a new Rx stating so. Upon chart review - telephone encounter 01/11/2024 with results: notify patient she requies 5L NC with exertion and 3L at rest. Claudia Galeano RN [facility]09-13-2024 Miscellaneous Notes* Telephone Encounter - Claudia Galeano RN - 02/08/2024 4:12 PM EDT Patient is using 4L on home concentrator. Patient was Dc'd from in September and was on 6L and found thatto be too much. Patient is currently using 4L at home on concentrator. Patient has POC, but it only goes up to 3L. She needs a new Rx for one that goes higher (at least 4-5). Patient stated spoke with [employer] who produces [employer]ogen POC. Patient stated per [employer],in order to obtain a new POC that goes up to 5L, she requires a new Rx stating so. Upon chart review - telephone encounter 01/11/2024 with results: notify patient she requies 5L NC with exertion and 3L at rest. Claudia Galeano RN documented in this encounterMagr[facility]08-16-2024 Telephone encounter Note * Telephone Encounter - Cole Meléndez RN - 01/11/2024 8:19 AM EDT Left VM to return call. Message to relay: Please notify patient that she requires 5LNC with exertion and 3LNC at rest AC [facility]08-16-20[facility] Miscellaneous Notes* Telephone Encounter - Cole Meléndez RN - 01/11/2024 8:19 AM EDT Left VM to return call. Message to relay: Please notify patient that she requires 5LNC with exertion and 3LNC at rest AC documented in this encounterMagruder Hospital08-15-2024 NoteHNO ID: [id number] Author: NICHELLE NELSON RPFT Service: ? Author Type: Respiratory Therapist Type: Procedures Filed: 01/10/2024 12:47 Note Text: RESPIRATORY THERAPY OXIMETRY WITH AMBULATION Oximetry with Ambulation Test for This Encounter O2 Device O2 Adapter NC O2 Flow SpO2% HR Activity Ft Walked (ft) Time (min) Avg Speed (MPH) R/A 73 114 Resting NC 2 85 104 Resting NC 3 94 99 Resting NC 3 87 112 Walking, usual pace 85 1.4 0.69 NC 4 95 98 Resting NC 4 87 107 Walking, usual pace 95 1.5 0.72 NC 5 96 92 Resting NC 5 91 107 Walking, usual pace 190 3 0.72 General Information Pulse Oximetry Site Total Time Spent Walking Assistance/O2 Supply Carrier R Index Finger 30 Wheeled Walker NAME: BETSY Rodriguez PATIENT NAME: Makenna Andre DATE: January 10, 2024 TIME: 12:47 PM Comment:[facility]08-15-2024 Procedure note* Nichelle Nelson RPFT - 01/10/2024 12:47 PM EDTAssociated Order(s): OXIMETRY WITH AMBULATION RESPIRATORY THERAPY OXIMETRY WITH AMBULATION Oximetry with Ambulation Test for This Encounter O2 Device O2 Adapter NC O2 Flow SpO2% HR Activity Ft Walked (ft) Time (min) Avg Speed (MPH) R/A 73 114 Resting NC 2 85 104 Resting NC 3 94 99 Resting NC 3 87 112 Walking, usual pace 85 1.4 0.69 NC 4 95 98 Resting NC 4 87 107 Walking, usual pace 95 1.5 0.72 NC 5 96 92 Resting NC 5 91 107 Walking, usual pace 190 3 0.72 General Information Pulse Oximetry Site Total Time Spent Walking Assistance/O2 Supply Carrier R Index Finger 30 Wheeled Walker NAME: BETSY Rodriguez PATIENT NAME: Makenna Andre DATE: January 10, 2024 TIME: 12:47 PM Comment: [facility] Procedure note* Nichelle Nelson RPFT - 01/10/2024 12:47 PM EDTAssociated Order(s): OXIMETRY WITH AMBULATION RESPIRATORY THERAPY OXIMETRY WITH AMBULATION Oximetry with Ambulation Test for This Encounter O2 Device O2 Adapter NC O2 Flow SpO2% HR Activity Ft Walked (ft) Time (min) Avg Speed (MPH) R/A 73 114 Resting NC 2 85 104 Resting NC 3 94 99 Resting NC 3 87 112 Walking, usual pace 85 1.4 0.69 NC 4 95 98 Resting NC 4 87 107 Walking, usual pace 95 1.5 0.72 NC 5 96 92 Resting NC 5 91 107 Walking, usual pace 190 3 0.72 General Information Pulse Oximetry Site Total Time Spent Walking Assistance/O2 Supply Carrier R Index Finger 30 Wheeled Walker NAME: BETSY Rodriguez PATIENT NAME: Makenna Andre DATE: January 10, 2024 TIME: 12:47 PM Comment: documented in this encounterMagruder Hospital08-15-2024 NoteHNO ID: [id number] Author: NICHELLE NELSON RPFT Service: ? Author Type: Respiratory Therapist Type: Progress Notes Filed: 01/10/2024 12:47 Note Text: PULM FUNCTION: Provider: Amol Godwin MD Assisting Tech: Nichelle Nelson RPFT [facility] of Present illness Narrative* Nichelle Nelson RPFT - 01/10/2024 12:44 PM EDT PULM FUNCTION: Provider: Amol Godwin MD Assisting Tech: Nichelle Nelson RPFT Oximetry - Ambulation: 1 documented in this encounterMagruder Hospital08-13-2024 History of Present illness Narrative* Bassem Case APRN.[employer] - 01/08/2024 11:00 AM EDT Images from the original note were not included. Chronic Care Clinic/CHF/Pulmonary Hypertension Clinic Chief Complaint Exertional shortness of breath, PH-ILD management high risk medication HISTORY OF PRESENT ILLNESS: Ms. Andre is a 67 year old female patient who is known to the heart failure clinic and presents as follow-up for her recently diagnosed PAH-ILD. Patient was hospitalized for acute hypoxic respiratoryfailure -10/06 of this year in which a workup revealed the presence of significant interstitial lung disease/fibrosis on the CT scan as well as presence of pulmonary hypertension cardiac echo. Eventually the patient underwent a right heart catheterization which was impressive for precapillary PAH She was then subsequently started on Tyvaso DPI by Dr. Godwin. Patient states that she has done very well since starting Tyvaso DPI. She has noted significant improvement in her exertional dyspnea and fatigue. She is able to complete activities of routine daily living much easier and he feels overall much better. Patient's current dosage of Tyvaso DPI 64mcg 4 times daily She has been on this doseabout 5 weeks now-tells me things are much better since stating Tyvaso. Patient has been maintained continuously on 5 L of oxygen per nasal cannula and she has shown marked improvement in energy and symptoms overall She denies any pedal edema, chest pain, shortness of breath, palpitations, fever, chills Her weight is stable at 153lbs Patient voices no complaints today She also denies diarrhea, palpitations, flushing orlightheadedness. On arrival to the CHF clinic the patient ambulated from the waiting area to the exam room. At the time she was on 3 L of portable pulsed oxygen unit. Will measure her sat at 83%. She was slightly dyspneic at the pulm this point and tachycardic with a heart rate of 104 I switch the patient over to her usual 5 L on our wall outlet oxygen supply. After a period of about 5 minutes the patient's O2 saturation had risen to 99% and her blood pressure which originally was 170/86 had dropped to 153/67. The patient was essentially asymptomatic at this time. She does have a tank which is capable of giving her 5 L for the ride home in her car. I called over to the office and made arrangements for for this patient to be tested for a portable oxygen unit which can provide her for with 5 to 6 L of oxygen. Her current device only goes up to 3 L. She will be tested this on January 08 at [facility] at 12:30 PM She will have a 6-minute walk at the time with the intent to be able to order a higher portable oxygen unit. Patient's current diuretic regimen is Lasix 40 mg p.o. daily. Patient actually is euvolemic today She tells me she does not need to take her Lasix on a daily basis and does not do so. She only takes Lasix when her her ankles are slightly swollen or she notices a slight increase in her weight. Patient does weigh herself on a daily basis Again patient is able to complete her routine activities of daily living She is even tackles and chores around the house successfully. Patient's current diuretic regimen is Lasix 40 mg p.o. daily Other than the Tyvaso DPI the patient is on no additional PAH medications PAST MEDICAL HISTORY No date: Allergic rhinitis, cause unspecified No date: Essential hypertension, benign No date: Family history of ischemic heart disease Comment: father age 50, brother age 42 No date: Obesity, unspecified PAST SURGICAL HISTORY 11-01-12: COLONOSCOPY FLX DX W/COLLJ SPEC WHEN PFRMD 1992: PAST SURGICAL HISTORY OF Comment: REMOVAL OF BENIGN CYST-RIGHT SIDE OF NECK 1993: TONSILLECTOMY & ADENOIDECTOMY AGE 12/> FAMILY HISTORY Problem Relation Age of Onset Heart Father [place] - first age 40's, CVA age 50 Stroke Father CVA - first age 42, CVA age 50 Hypertension Mother Diabetes Mother Heart Brother age 41; also heavy etoh use Heart Brother stented age 42 Hypertension Brother Breast Cancer Maternal Aunt x2 Heart Paternal Uncle x2 Allergies Mother Cancer Mother pancreatic cancer Social History Tobacco Use Smoking status: Never Substance Use Topics Alcohol use: No Drug use: No ALLERGIES Allergen Reactions Darvocet-N 100 [Pro* Unknown numbness Penicillins Hives Medications: Current Outpatient Medications Medication Sig Dispense Refill OXYGEN, HOME THERAPY, Inhale 6-10 L/min as instructed continuous. dilTIAZem LA (CARDIZEM LA) 240 mg 24 hr tablet Take 240 mg by mouth once daily. acetaminophen (TYLENOL ARTHRITIS PAIN) 650 mg CR tablet Take 1 tablet by mouth every 8 hours as needed for pain. cyanocobalamin (VITAMIN B-12) 1,000 mcg tab Take 1,000 mcg by mouth once daily. Chromium Picolinate 200 mcg tab Take 1 tablet by mouth once daily. vitamin E, dl,tocopheryl acet, (VITAMIN E, DL, ACETATE,) 180 mg (400 unit) capsule Take 1 capsule by mouth once daily. Glucosamine-Chondroitin (OSTEO BI-FLEX) 250-200 mg tab Take 2 tablets by mouth once daily. potassium chloride ER (KLOR-CON) 20 mEq tablet Take 1 tablet by mouth once daily. calcium carb-D3-mag ox-zinc ox (NISH MAG ZINC PLUS D3) 333 mg-133 unit -133 mg-5 mg tab Take 1 tablet by mouth once daily. levothyroxine (SYNTHROID) 50 mcg tablet Take 1 tablet by mouth daily before breakfast. pravastatin (PRAVACHOL) 20 mg tablet Take 1 tablet by mouth once daily. turmeric root extract 500 mg cap Take 1 capsule by mouth once daily. vit A and D3 in cod liver oil 1,250-135 unit cap Take 1 capsule by mouth once daily. furosemide (LASIX) 40 mg tablet Take 1 tablet by mouth once daily. fluticasone-salmeterol (ADVAIR) 500-50 mcg/dose dsdv Inhale 1 Puff as instructed two times a day. Echinacea 500 mg cap Take 1 capsule by mouth two times a day. lisinopril 10 mg tablet Take 1 tablet by mouth once daily. 90 tablet 3 Cholecalciferol, Vitamin D3, 2,000 unit cap Take 1 tablet by mouth once daily. 0 vitamin A-ascorbic acid-vitamin E-minerals (OCUVITE) Tab Take 1 tablet by mouth once daily. 0 VTR-Bedxtgppr-Ocqhnxnxllksi (ALLERGY SINUS PE) 2-5-325 mg ORAL Tab Take by mouth as needed. 0 GARLIC 1,000 MG CAP Take one tablet daily. 0 aspirin(ADULT LOW DOSE ASPIRIN 81 MG TAB, DELAYED RELEASE) Take one(1) tablet daily. 0 multivitamins(DAILY MULTIVITAMIN TAB) Take one(1) tablet daily. 0 0 No current facility-administered medications for this visit. Last 2 Encounter Wt Readings: Date: Wt: 11/15/2023 71.7 kg (158 lb) 10/24/2023 70.1 kg (154 lb 9.6 oz) General: Well appearing, appears stated age and in no acute distress. Psych: Normal Affect Neck: no jugular venous distentio Lungs: Clear to auscultation bilaterally, no wheezing or rhonchi. Heart: S1, S2 normal, no murmur Abdomen: soft. Non-tender. Extremities: No peripheral edema Neuro: Grossly nonfocal LABS: TSH 1.290 12/09/2012 Triglyceride 84 08/13/2013 HDL Cholesterol 46 08/13/2013 LDL Chol, [facility] 121 08/13/2013 Cholesterol, Total 184 08/13/2013 CBC: Hemoglobin (g/dL) Date Value 10/05/2023 13.6 Hematocrit (%) Date Value 10/05/2023 43.3 WBC (k/uL) Date Value 10/05/2023 10.87 Platelet Count (k/uL) Date Value 10/05/2023 334 BMP: VQ Scan 09/2023 IMPRESSION: No scintigraphic evidence of chronic thromboembolic disease. CT Chest 09/2023 IMPRESSION: 1. No CT evidence of pulmonary embolism. 2. Somewhat mosaic lung attenuation pattern which can be seen with small airways disease. 3. Scattered reticular and groundglass densities which may represent areas of inflammation/atelectasis. There may be a component component of chronic interstitial lung disease/pulmonary fibrosis. Follow-up CT may be helpful for further evaluation. 4. Mediastinal and hilar lymphadenopathy. TTE 09/2023 CONCLUSIONS: - Technically difficult exam due to body habitus. - Exam indication: Re-evaluation of known pulmonary hypertension (to guide therapy) - The left ventricle is normal in size. Left ventricular systolic function is normal. EF = 65 5% (2D biplane) Definity contrast used for endocardial border detection. Normal left ventricular diastolic function. - The right ventricle is mildly dilated. RV appears mildly dilated in limited accoustic views. RV systolic tissue Doppler velocity is 10.0 cm/s. - There are no significant valvular abnormalities. - There is no pericardial effusion. - No evidence of pulmonary hypertension by Doppler or appearance of the right-sided chambers. - The patient has not had a prior CC echocardiographic exam for comparison. RHC 09/2023 RHC determinations Determinations Result Units Rhythm A.Fib Inspired fraction of oxygen 44.00 % Nasal cannula Flow 6.00 L/min SpO2 98.00 % Systolic BP 122.00 mmHg Diastolic BP 59.00 mmHg Mean BP 80.00 mmHg Heart Rate 80.00 bpm Height 154.90 cm Weight 71.40 Kg Body surface area 1.71 m2 Body mass index 29.76 kg/m2 Right Atrial Pressure (mean) 1.00 mmHg Right Atrial Pressure (V-wave) 10.00 mmHg Right Ventricular Systolic Pressure 62.00 mmHg Right Ventricular Diastolic Pressure 0.00 mmHg Systolic pulmonary artery pressure 62.00 mmHg Mean pulmonary artery pressure 39.00 mmHg Diastolic pulmonary artery pressure 28.00 mmHg Pumonary artery pulse pressure 34.00 mmHg Pulmonary artery occlusion pressure (mean) 2.00 mmHg Pulmonary artery occlusion pressure (end-expiration) mid a wave 5.00 mmHg Pulmonary artery occlusion pressure (end-expiration) peak v wave NA Diastolic pulmonary gradient 23.00 mmHg Transpulmonary gradient 34.00 mmHg Pulmonary artery capacitance 1.99 mL/mmHg Cardiac output (thermodilution) 5.40 L/min Cardiac index (thermodilution) 3.17 L/min/m2 Cardiac output (indirect LEV) 4.42 L/min Cardiac index (indirect LEV) 2.59 L/min/m2 Systemic vascular resistance 1170.37 dynes/sec/cm5 Stroke volume 67.50 mL Stroke volume index 39.57 mL/m2 Right ventricular stroke work index 20.45 g*m/m2 Pulmonary vascular resistance 6.30 Wood Units Hemoglobin (mixed venous) 14.20 g/dL Arterial oxyhemoglobin 98.00 % Mixed venous oxyhemoglobin 73.00 % Lactic acid (arterial) NA mmol/L Abbreviated version Right Atrial Pressure (mean) 1.00 mmHg Mean pulmonary artery pressure 39.00 mmHg Pulmonary artery occlusion pressure (end-expiration) mid a wave 5.00 mmHg Cardiac index (thermodilution) 3.17 L/min/m2 Pulmonary vascular resistance 6.30 Wood Units Mixed venous oxyhemoglobin 73.00 % Saturations SaO2 PAWP NA % SaO2 PA 73.00 % SaO2 RA 74.00 % SpO2 98.00 % Vasoreactive Challenge (Inhaled NO 40ppm/5 mins) Systolic pulmonary artery pressure 61.00 mmHg Mean pulmonary artery pressure 40.00 mmHg Diastolic pulmonary artery pressure 30.00 mmHg Pumonary artery pulse pressure 31.00 mmHg Pulmonary artery occlusion pressure (mean) 2.00 mmHg Pulmonary artery occlusion pressure (end-expiration) mid a wave 5.00 mmHg Pulmonary artery occlusion pressure (end-expiration) peak v wave NA Cardiac output (thermodilution) 5.60 L/min Cardiac index (thermodilution) 3.28 L/min/m2 Pulmonary vascular resistance 6.25 Wood Unit WAVEFORMS: Right Atrial Pressure: Pulmonary Artery Pressure: PAWP: RV PullBack: Estimated Blood Loss: Scant Specimens: Mixed venous blood gases. Complications: None. Introducer removed without complications. Pressure applied for 10 minutes. No Bleeding. Condition of Patient After Procedure: stable Summary: Precapillary PH with preserved cardiac index. Negative nitric oxide response. Plan: F/U with Dr Godwin or Dr Julien in outpatient setting. Low salt in the diet. 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 Recommend initiation of Tyvaso DPI 16mcg QID ---> 64mcg as tolerated. 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 Recommend further evaluation of ILD with additional AI serologies, myositis panel, and HP panel. - Obtain PFTs - Will discuss with ILD multidisciplinary - With regards to PH, +++ clinical improvement with tyvaso. Recommend ongoing uptitration to 64 mcgs QID as tolerated. Will increase dose every 4 weeks as tolerated - Obtain 6MWT, ambulatory O2 eval - Continue supplemental O2 at 4-6LNC - Recommend continuation of Advair 500/50 BID as ordered - Follow up in 4 months No follow-ups on file. Amol Godwin MD October 24, 2023 6:11 AM Note Details Instructions Return in about 4 months (around 02/24/2024). Diagram Clerk Worksheet (Printed 10/24/2023), ASSESSMENT /PLAN Precapillary PAH in the setting of extensive interstitial lung disease involvement PAH 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, functional class II) -Continue Tyvaso DPI at 64mcg QID Chronic hypoxic respiratory failure Overall the patient is doing very well with minimal respiratory symptoms she is currently on TyvasoDPI 64 mcg 4 times daily Continue daily weights and low-sodium diet Continue Bronchodilators as prescribed Continue supplemental oxygen at 5 L nasal cannula Patient was instructed to continue to weigh herself and she should call should she have any questions She should also call if she has an increase in her weight of 2 to 3 pounds in 3 days or 5 pounds in 1 week Followup in 3 months Electronically signed by Bassem Case APRN.CNS. Outpatient Counseling: I have personally spent 30 total minutes involved in the [id number] care of patient. Greater than 50% of the time was spent counseling and/or coordinating care for the patient, the nature of which is noted above. The health conditions of this patient carry a high risk of complications, morbidity, and/or mortality. documented in [facility] NoteHNO ID: [id number] Author: BASSEM CASE APRN.CNS Service: ? Author Type: Nurse Specialist Type: Progress Notes Filed: 01/08/2024 12:37 Note Text: Chronic Care Clinic/CHF/Pulmonary Hypertension Clinic Chief Complaint Exertional shortness of breath, PH-ILD management high risk medication HISTORY OF PRESENT ILLNESS: Ms. Andre is a 67 year old female patient who is known to the heart failure clinic and presents as follow-up for her recently diagnosed PAH-ILD. Patient was hospitalized for acute hypoxic respiratory failure -10/06 of this year in which a workup revealed the presence of significant interstitial lung disease/fibrosis on the CT scan as well as presence of pulmonary hypertension cardiac echo. Eventually the patient underwent a right heart catheterization which was impressive for precapillary PAH She was then subsequently started on Tyvaso DPI by Dr. Godwin. Patient states that she has done very well since starting Tyvaso DPI. She has noted significant improvement in her exertional dyspnea and fatigue. She is able to complete activities of routine daily living much easier and he feels overall much better. Patient's current dosage of Tyvaso DPI 64mcg 4 times daily She has been on this dose about 5 weeks now-tells me things are much better since stating Tyvaso. Patient has been maintained continuously on 5 L of oxygen per nasal cannula and she has shown marked improvement in energy and symptoms overall She denies any pedal edema, chest pain, shortness of breath, palpitations, fever, chills Her weight is stable at 153lbs Patient voices no complaints today She also denies diarrhea, palpitations, flushing orlightheadedness. On arrival to the CHF clinic the patient ambulated from the waiting area to the exam room. At the time she was on 3 L of portable pulsed oxygen unit. Will measure her sat at 83%. She was slightly dyspneic at the pulm this point and tachycardic with a heart rate of 104 I switch the patient over to her usual 5 L on our wall outlet oxygen supply. After a period of about 5 minutes the patient's O2 saturation had risen to 99% and her blood pressure which originally was 170/86 had dropped to 153/67. The patient was essentially asymptomatic at this time. She does have a tank which is capable of giving her 5 L for the ride home in her car. I called over to the office and made arrangements for for this patient to be tested for a portable oxygen unit which can provide her for with 5 to 6 L of oxygen. Her current device only goes up to 3 L. She will be tested this on January 08 at [facility] at 12:30 PM She will have a 6-minute walk at the time with the intent to be able to order a higher portable oxygen unit. Patient's current diuretic regimen is Lasix 40 mg p.o. daily. Patient actually is euvolemic today She tells me she does not need to take her Lasix on a daily basis and does not do so. She only takes Lasix when her her ankles are slightly swollen or she notices a slight increase in her weight. Patient does weigh herself on a daily basis Again patient is able to complete her routine activities of daily living She is even tackles and chores around the house successfully. Patient's current diuretic regimen is Lasix 40 mg p.o. daily Other than the Tyvaso DPI the patient is on no additional PAH medications PAST MEDICAL HISTORY No date: Allergic rhinitis, cause unspecified No date: Essential hypertension, benign No date: Family history of ischemic heart disease Comment: father age 50, brother age 42 No date: Obesity, unspecified PAST SURGICAL HISTORY 11-01-12: COLONOSCOPY FLX DX W/COLLJ SPEC WHEN PFRMD 1992: PAST SURGICAL HISTORY OF Comment: REMOVAL OF BENIGN CYST-RIGHT SIDE OF NECK 1993: TONSILLECTOMY AND ADENOIDECTOMY AGE 12/> FAMILY HISTORY Problem Relation Age of Onset Heart Father [place] - first age 40's, CVA age 50 Stroke Father CVA - first age 42, CVA age 50 Hypertension Mother Diabetes Mother Heart Brother age 41; also heavy etoh use Heart Brother stented age 42 Hypertension Brother Breast Cancer Maternal Aunt x2 Heart Paternal Uncle x2 Allergies Mother Cancer Mother pancreatic cancer Social History Tobacco Use Smoking status: Never Substance Use Topics Alcohol use: No Drug use: No ALLERGIES Allergen Reactions Darvocet-N 100 [Pro* Unknown numbness Penicillins Hives Medications: Current Outpatient Medications Medication Sig Dispense Refill OXYGEN, HOME THERAPY, Inhale 6-10 L/min as instructed continuous. dilTIAZem LA (CARDIZEM LA) 240 mg 24 hr tablet Take 240 mg by mouth once daily. acetaminophen (TYLENOL ARTHRITIS PAIN) 650 mg CR tablet Take 1 tablet by mouth every 8 hours as needed for pain. cyanocobalamin (VITAMIN B-12) 1,000 mcg tab Take 1,000 mcg by mouth once daily. Chromium Picolinate 200 mcg tab Take 1 tablet by mouth once daily. vitamin E, dl,tocopheryl a (more content not included)...[facility]06-21-2024 NoteHNO ID: [id number] Author: BASSEM CASE APRN.[employer] Service: ? Author Type: Nurse Specialist Type: Progress Notes Filed: 11/16/2023 11:13 Note Text: Chronic Care Clinic/CHF Chief Complaint Exertional shortness of breath, PH-ILD management high risk medication HISTORY OF PRESENT ILLNESS: Ms. Andre is a 67 year old female patient who is known to the heart failure clinic and presents as follow-up for her recently diagnosed PAH-ILD. Patient was hospitalized for acute hypoxic respiratory failure -10/06 of this year in which a workup revealed the presence of significant interstitial lung disease/fibrosis on the CT scan as well as presence of pulmonary hypertension cardiac echo. Eventually the patient underwent a right heart catheterization which was impressive for precapillary PAH She was then subsequently started on Tyvaso DPI by Dr. Godwin. Patient states that she has done very well since starting Tyvaso DPI. She has noted significant improvement in her exertional dyspnea and fatigue. She is able to complete activities of routine daily living much easier and he feels overall much better. Patient's current dosage of Tyvaso DPI 32 mcg 4 times daily Plans as the patient is doing well she will uptitrate to 48 mcg of Tyvaso DPI in 3 days which is Thursday 11/16 Since her hospitalization the patient has been maintained continuously on 5 L of oxygen per nasal cannula and she has shown marked improvement in energy and symptoms overall She denies any pedal edema, chest pain, shortness of breath, palpitations, fever, chills Her weight is stable Patient voices no complaints today She also denies diarrhea or flushing lightheadedness. Hemodynamics today are satisfactory Again patient is able to complete her routine activities of daily living She is even tackles and chores around the house successfully. Patient's current diuretic regimen is Lasix 40 mg p.o. daily Other than the Tyvaso DPI the patient is on no additional PAH medications PAST MEDICAL HISTORY Diagnosis Date Allergic rhinitis, cause unspecified Essential hypertension, benign Family history of ischemic heart disease father age 50, brother age 42 Obesity, unspecified PAST SURGICAL HISTORY Procedure Laterality Date COLONOSCOPY FLX DX W/COLLJ SPEC WHEN PFRMD 11-01-12 PAST SURGICAL HISTORY OF 1992 REMOVAL OF BENIGN CYST-RIGHT SIDE OF NECK TONSILLECTOMY AND ADENOIDECTOMY AGE 12/> 1992 FAMILY HISTORY Problem Relation Age of Onset Heart Father [place] - first age 40's, CVA age 50 Stroke Father CVA - first age 42, CVA age 50 Hypertension Mother Diabetes Mother Heart Brother age 41; also heavy etoh use Heart Brother stented age 42 Hypertension Brother Breast Cancer Maternal Aunt x2 Heart Paternal Uncle x2 Allergies Mother Cancer Mother pancreatic cancer Social History Tobacco Use Smoking status: Never Substance Use Topics Alcohol use: No Drug use: No ALLERGIES Allergen Reactions Darvocet-N 100 [Pro* Unknown numbness Penicillins Hives Medications: Current Outpatient Medications Medication Sig Dispense Refill OXYGEN, HOME THERAPY, Inhale 6-10 L/min as instructed continuous. dilTIAZem LA (CARDIZEM LA) 240 mg 24 hr tablet Take 240 mg by mouth once daily. acetaminophen (TYLENOL ARTHRITIS PAIN) 650 mg CR tablet Take 1 tablet by mouth every 8 hours as needed for pain. cyanocobalamin (VITAMIN B-12) 1,000 mcg tab Take 1,000 mcg by mouth once daily. Chromium Picolinate 200 mcg tab Take 1 tablet by mouth once daily. vitamin E, dl,tocopheryl acet, (VITAMIN E, DL, ACETATE,) 180 mg (400 unit) capsule Take 1 capsule by mouth once daily. Glucosamine-Chondroitin (OSTEO BI-FLEX) 250-200 mg tab Take 2 tablets by mouth once daily. potassium chloride ER (KLOR-CON) 20 mEq tablet Take 1 tablet by mouth once daily. calcium carb-D3-mag ox-zinc ox (NISH MAG ZINC PLUS D3) 333 mg-133 unit -133 mg-5 mg tab Take 1 tablet by mouth once daily. levothyroxine (SYNTHROID) 50 mcg tablet Take 1 tablet by mouth daily before breakfast. pravastatin (PRAVACHOL) 20 mg tablet Take 1 tablet by mouth once daily. turmeric root extract 500 mg cap Take 1 capsule by mouth once daily. vit A and D3 in cod liver oil 1,250-135 unit cap Take 1 capsule by mouth once daily. furosemide (LASIX) 40 mg tablet Take 1 tablet by mouth once daily. fluticasone-salmeterol (ADVAIR) 500-50 mcg/dose dsdv Inhale 1 Puff as instructed two times a day. Echinacea 500 mg cap Take 1 capsule by mouth two times a day. lisinopril 10 mg tablet Take 1 tablet by mouth once daily. 90 tablet 3 Cholecalciferol, Vitamin D3, 2,000 unit cap Take 1 tablet by mouth once daily. 0 vitamin A-ascorbic acid-vitamin E-minerals (OCUVITE) Tab Take 1 tablet by mouth once daily. 0 KJX-Yxzpenxgx-Xmuyawnufqcwj (ALLERGY SINUS PE) 2-5-325 mg ORAL Tab Take by mouth as needed. 0 GARLIC 1,000 MG CAP Take one tablet daily. 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 Andre is a 67 year old female patient who is known to the heart failure clinic and presents as follow-up for her recently diagnosed PAH-ILD. Patient was hospitalized for acute hypoxic respiratoryfailure -10/06 of this year in which a workup revealed the presence of significant interstitial lung disease/fibrosis on the CT scan as well as presence of pulmonary hypertension cardiac echo. Eventually the patient underwent a right heart catheterization which was impressive for precapillary PAH She was then subsequently started on Tyvaso DPI by Dr. Godwin. Patient states that she has done very well since starting Tyvaso DPI. She has noted significant improvement in her exertional dyspnea and fatigue. She is able to complete activities of routine daily living much easier and he feels overall much better. Patient's current dosage of Tyvaso DPI 32 mcg 4 times daily Plans as the patient is doing well she will uptitrate to 48 mcg of Tyvaso DPI in 3 days which is Thursday 11/16 Since her hospitalization the patient has been maintained continuously on 5 L of oxygen per nasal cannula and she has shown marked improvement in energy and symptoms overall She denies any pedal edema, chest pain, shortness of breath, palpitations, fever, chills Her weight is stable Patient voices no complaints today She also denies diarrhea or flushing lightheadedness. Hemodynamics today are satisfactory Again patient is able to complete her routine activities of daily living She is even tackles and chores around the house successfully. Patient's current diuretic regimen is Lasix 40 mg p.o. daily Other than the Tyvaso DPI the patient is on no additional PAH medications PAST MEDICAL HISTORY Diagnosis Date Allergic rhinitis, cause unspecified Essential hypertension, benign Family history of ischemic heart disease father age 50, brother age 42 Obesity, unspecified PAST SURGICAL HISTORY Procedure Laterality Date COLONOSCOPY FLX DX W/COLLJ SPEC WHEN PFRMD 11-01-12 PAST SURGICAL HISTORY OF 1992 REMOVAL OF BENIGN CYST-RIGHT SIDE OF NECK TONSILLECTOMY & ADENOIDECTOMY AGE 12/1992 FAMILY HISTORY Problem Relation Age of Onset Heart Father [place] - first age 40's, CVA age 50 Stroke Father CVA - first age 42, CVA age 50 Hypertension Mother Diabetes Mother Heart Brother age 41; also heavy etoh use Heart Brother stented age 42 Hypertension Brother Breast Cancer Maternal Aunt x2 Heart Paternal Uncle x2 Allergies Mother Cancer Mother pancreatic cancer Social History Tobacco Use Smoking status: Never Substance Use Topics Alcohol use: No Drug use: No ALLERGIES Allergen Reactions Darvocet-N 100 [Pro* Unknown numbness Penicillins Hives Medications: Current Outpatient Medications Medication Sig Dispense Refill OXYGEN, HOME THERAPY, Inhale 6-10 L/min as instructed continuous. dilTIAZem LA (CARDIZEM LA) 240 mg 24 hr tablet Take 240 mg by mouth once daily. acetaminophen (TYLENOL ARTHRITIS PAIN) 650 mg CR tablet Take 1 tablet by mouth every 8 hours as needed for pain. cyanocobalamin (VITAMIN B-12) 1,000 mcg tab Take 1,000 mcg by mouth once daily. Chromium Picolinate 200 mcg tab Take 1 tablet by mouth once daily. vitamin E, dl,tocopheryl acet, (VITAMIN E, DL, ACETATE,) 180 mg (400 unit) capsule Take 1 capsule by mouth once daily. Glucosamine-Chondroitin (OSTEO BI-FLEX) 250-200 mg tab Take 2 tablets by mouth once daily. potassium chloride ER (KLOR-CON) 20 mEq tablet Take 1 tablet by mouth once daily. calcium carb-D3-mag ox-zinc ox (NISH MAG ZINC PLUS D3) 333 mg-133 unit -133 mg-5 mg tab Take 1 tablet by mouth once daily. levothyroxine (SYNTHROID) 50 mcg tablet Take 1 tablet by mouth daily before breakfast. pravastatin (PRAVACHOL) 20 mg tablet Take 1 tablet by mouth once daily. turmeric root extract 500 mg cap Take 1 capsule by mouth once daily. vit A and D3 in cod liver oil 1,250-135 unit cap Take 1 capsule by mouth once daily. furosemide (LASIX) 40 mg tablet Take 1 tablet by mouth once daily. fluticasone-salmeterol (ADVAIR) 500-50 mcg/dose dsdv Inhale 1 Puff as instructed two times a day. Echinacea 500 mg cap Take 1 capsule by mouth two times a day. lisinopril 10 mg tablet Take 1 tablet by mouth once daily. 90 tablet 3 Cholecalciferol, Vitamin D3, 2,000 unit cap Take 1 tablet by mouth once daily. 0 vitamin A-ascorbic acid-vitamin E-minerals (OCUVITE) Tab Take 1 tablet by mouth once daily. 0 CLW-Qrlrrlakm-Hotsvqqsefwxf (ALLERGY SINUS PE) 2-5-325 mg ORAL Tab Take by mouth as needed. 0 GARLIC 1,000 MG CAP Take one tablet daily. 0 aspirin(ADULT LOW DOSE ASPIRIN 81 MG TAB, DELAYED RELEASE) Take one(1) tablet daily. 0 multivitamins(DAILY MULTIVITAMIN TAB) Take one(1) tablet daily. 0 0 No current facility-administered medications for this visit. Physical Examination: Vitals:BP 156/76 Pulse 92 Resp 22 Wt 158 lb (71.7kg) SpO2 98% LMP 07/05/2009 BP w/Orthostatic Vitals Date and Time Orthostatic BP Orthostatic Pulse BP Pulse BP Position BP Site BP Cuff Size 11/15/23 1100 -- -- 156/76 92 -- -- -- Peak Flow Date and Time PF Resp 11/15/23 1100 -- 22 Last 2 Encounter Wt Readings: Date: Wt: 11/15/2023 71.7 kg (158 lb) 10/24/2023 70.1 kg (154 lb 9.6 oz) General: Well appearing, appears stated age and in no acute distress. Psych: Normal Affect Neck: no jugular venous distention Lungs: Clear to auscultation bilaterally, no wheezing or rhonchi. Heart: S1, S2 normal, no murmur Abdomen: soft. Non-tender. Extremities: No peripheral edema Neuro: Grossly nonfocal LABS: TSH 1.290 12/09/2012 Triglyceride 84 08/13/2013 HDL Cholesterol 46 08/13/2013 LDL Chol, [place] 121 08/13/2013 Cholesterol, Total 184 08/13/2013 CBC: Hemoglobin (g/dL) Date Value 10/05/2023 13.6 Hematocrit (%) Date Value 10/05/2023 43.3 WBC (k/uL) Date Value 10/05/2023 10.87 Platelet Count (k/uL) Date Value 10/05/2023 334 BMP: Potassium (mmol/L) Date Value 10/05/2023 4.2 08/13/2013 3.5 Sodium (mmol/L) Date Value 10/05/2023 136 08/13/2013 141 Chloride (mmol/L) Date Value 10/05/2023 94 08/13/2013 100 CO2 (mmol/L) Date Value 10/05/2023 24 08/13/2013 27 Creatinine (mg/dL) Date Value 10/05/2023 0.61 08/13/2013 0.58 BUN (mg/dL) Date Value 10/05/2023 19 08/13/2013 18 Anion Gap (mmol/L) Date Value 10/05/2023 18 08/13/2013 14 Calcium (mg/dL) Date Value 08/13/2013 9.7 Calcium, Total (mg/dL) Date Value 10/05/2023 9.8 ASSESSMENT /PLAN Precapillary PAH in the setting of extensive interstitial lung disease involvement PAH 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, functional class III) Chronic hypoxic respiratory failure Overall the patient is doing very well with minimal respiratory symptoms she is currently on TyvasoDPI 32 mcg 4 times daily with intent to transition to 48 mcg 4 times daily on 11/16- if tolerated patient will eventually trends up transition up in the next 2 weeks to a total dose of 64 mcg 4 times daily Continue daily weights and low-sodium diet Continue Broncholate dilators as prescribed Continue supplemental oxygen at 5 L nasal cannula patient was instructed to continue to weigh herself and she should call should she have any questions she should also call if she has an increase in her weight of 2 to 3 pounds in 3 days or 5 pounds in 1 week Return in 4 months Electronically signed by Bassem Case APRN.[employer]. Outpatient Counseling: I have personally spent 20 total minutes involved in the ljdt-pk-dyhv care of patient. Greater than 50% of the time was spent counseling and/or coordinating care for the patient, the nature of which is noted above. The health conditions of this patient carry a high risk of complications, morbidity, and/or mortality. documented in this encounterMag[facility]06-21-[facility]24 NoteHNO ID: [id number] Author: AIDE DUNAWAY, RN Service: ? Author Type: Registered Nurse Type: Progress Notes Filed: 11/16/2023 09:57 Note Text:[facility]06[facility]21[facility] History of Present illness Narrative* Aide Dunaway RN - 11/16/2023 9:57 AM EDT Images from the original note were not included. documented in this encounterMagr[facility]06-14-2024 Telephone encounter Note * Telephone Encounter - Camila Desai RN - 11/09/2023 3:06 PM EDT Requesting order for continued follow up with the [facility] Miscellaneous Notes* Telephone Encounter - Camila Desai RN - 11/09/2023 3:06 PM EDT Requesting order for continued follow up with the [facility] documented in this encounterMagr[facility]05-31-2024 Telephone encounter Note * Telephone Encounter - Ifeoma Coy - 10/26/2023 10:51 AM EDT Plan of treatment signed & faxed back to [facility]. Ifeoma Coy [facility] Miscellaneous Notes* Telephone Encounter - Ifeoma Coy - 10/26/2023 10:51 AM EDT Plan of treatment signed & faxed back to [facility]. Ifeoma Coy documented in this encounterMagruder [facility]05-29-2024 History of Present illness Narrative* Amol Godwin MD - 10/24/2023 2:20 PM EDT Images from the original note were not included. Patient Name: Makenna Andre PRIMARY CARE PHYSICIAN: Hoda Del Rosario MD Date of visit: October 24, 2023 COMMUNICATION WILL BE SENT VIA SHARED MEDICAL RECORDS OR US MAIL. Subjective: Makenna Andre is a 67 year old female who is known to this clinic and presents as follow up for recently diagnosed PH-ILD. Patient known to me after she was recently hospitalized for acute (on chronic) hypoxic respiratory failure (10/01- 10/06) in which work-up revealed presence of significant interstitial lung disease/fibrosis on CT chest and presence of pulmonary hypertension as suggested by echo.She eventually underwent inpatient RHC which was impressive for precapillary PH (results below). She presents today to establish care in clinic. Recommendations at time of discharge were to undergo SNIFF testing given elevation in R hemidiaphragm as well as initiation of inhaled treprostinil. With regards to patients history, patient had no respiratory issues the majority of her life. This all changed last Spring (08/2022) when she started to develop leg swelling, but ironically no shortness of breath. She went to PCP and was immediately sent to ED. In [place] ED she underwent imaging and she was told she had double pneumonia not from bacterial or virus in which she was placed on abx. She was also placed on oxygen at the time. Symptoms predominantly were reduced energy. Denied SOB/dyspnea, coughing, wheezing, or palpitations. She believes this pneumonia was potentially related toher hip surgery which she had 1 month before this all started. She was being seen by a battery tester in [place] and was told she may have COPD. She was placed on Advair 500/50 BID in which she was prescribed this since 07/2023 with minimal benefit. She was referred to [facility] for second opinion and on arrival patient was found to be in acute on chronic hypox respiratory failure and thus sent to hospital to be further evaluated with results discussed above. Since her hospitalization she was discharged on 6LNC (increased from 4LNC) and started on Tyvaso DPI. With regards to later, she endorses marked improvement in energy and symptoms overall since starting the Tyvaso. She has reduced her O2 to 5LNC as 6L was too much and I'm still doing OK. Denies any pedal edema, chest pain, shortness of breath, palpitations, fevers, chills, or NS. Weight is stable. She never grew up on farm. She owns inside cat/dog (pug/bulldog). Denies birds at this time. She did have a bird, cockateel for about 6 years over 28 years ago. Denies any bird exposures, rodent manifestations, bats exposures, jacuzzi, or mold in the house. 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 + dust exposure in which she frequently blew black out of her nose. Denies any unusual hobbies. Had remote cigarette use predominanly socially 3 cigarettes/week, last cigarette was > 40 years ago. Denies drug use, ETOH abuse (occasional social use). Has been on statin for years. Has no personal hx of AI. Family hx of lupus (cousins). + arthritis involving hands. PMHx: PAST MEDICAL HISTORY Diagnosis Date Allergic rhinitis, cause unspecified Essential hypertension, benign Family history of ischemic heart disease father age 50, brother age 42 Obesity, unspecified MEDICATIONS: OXYGEN, HOME THERAPY, Inhale 6-10 L/min as instructed continuous. dilTIAZem LA (CARDIZEM LA) 240 mg 24 hr tablet Take 240 mg by mouth once daily. acetaminophen (TYLENOL ARTHRITIS PAIN) 650 mg CR tablet Take 1 tablet by mouth every 8 hours as needed for pain. cyanocobalamin (VITAMIN B-12) 1,000 mcg tab Take 1,000 mcg by mouth once daily. Chromium Picolinate 200 mcg tab Take 1 tablet by mouth once daily. vitamin E, dl,tocopheryl acet, (VITAMIN E, DL, ACETATE,) 180 mg (400 unit) capsule Take 1 capsule by mouth once daily. Glucosamine-Chondroitin (OSTEO BI-FLEX) 250-200 mg tab Take 2 tablets by mouth once daily. potassium chloride ER (KLOR-CON) 20 mEq tablet Take 1 tablet by mouth once daily. calcium carb-D3-mag ox-zinc ox (NISH MAG ZINC PLUS D3) 333 mg-133 unit -133 mg-5 mg tab Take 1 tablet by mouth once daily. levothyroxine (SYNTHROID) 50 mcg tablet Take 1 tablet by mouth daily before breakfast. pravastatin (PRAVACHOL) 20 mg tablet Take 1 tablet by mouth once daily. turmeric root extract 500 mg cap Take 1 capsule by mouth once daily. vit A and D3 in cod liver oil 1,250-135 unit cap Take 1 capsule by mouth once daily. furosemide (LASIX) 40 mg tablet Take 1 tablet by mouth once daily. fluticasone-salmeterol (ADVAIR) 500-50 mcg/dose dsdv Inhale 1 Puff as instructed two times a day. Echinacea 500 mg cap Take 1 capsule by mouth two times a day. lisinopril 10 mg tablet Take 1 tablet by mouth once daily. Cholecalciferol, Vitamin D3, 2,000 unit cap Take 1 tablet by mouth once daily. vitamin A-ascorbic acid-vitamin E-minerals (OCUVITE) Tab Take 1 tablet by mouth once daily. CDC-Jywoujaoe-Nwepkyvxgzecl (ALLERGY SINUS PE) 2-5-325 mg ORAL Tab Take by mouth as needed. GARLIC 1,000 MG CAP Take one tablet daily. aspirin(ADULT LOW DOSE ASPIRIN 81 MG TAB, DELAYED RELEASE) Take one(1) tablet daily. multivitamins(DAILY MULTIVITAMIN TAB) Take one(1) tablet daily. Allergies: Darvocet-N 100 [Propoxyphene N-Acetaminophen] and Penicillins ROS: GENERAL: (-) fevers, (-) chills, (-) night sweats, (-) nausea/vomiting, (-) weight loss, (-) weightgain HEENT: (-) runny nose, (-) sore throat, (-) post-nasal drip RESPIRATORY: As above in subjective CARDIOVASCULAR: (-) chest pain, (-) palpitations, (-) LE edema. All other 10 point ROS reviewed and negative except for that mentioned above. PHYSICAL EXAM: BP 159 Pulse 94 Temp (Src) 98 (Temporal) Resp 18 Ht 5' 2 (1.58m) Wt 154 lb 9.6 oz (70.1kg) SpO2 92% LMP 07/05/2009 BMI 28.27 kg/(m^2). Last Wt 10/24/23 70.1 kg (154 lb 9.6 oz) 10/03/23 71.4 kg (157 lb 6.5 oz) 10/02/23 72.1 kg (159 lb) 08/25/13 87.1 kg (192 lb) General- nad, comfortable in general appearance Eyes- eomi, perrl ENT- oropharynx clear, atraumatic Neck- supple, no obvious JVD CV- RRR, no M/G/R Resp- clear to auscultation bilaterally, no wheezes or crackles, breathing nonlabored Abd- +bs, soft, nt, nd Ext- no clubbing, cyanosis, or edema Neuro- no gross focal motor or sensory deficits Derm- no lesions/rashes Psych- appropriate mood and affect Labs / Imaging / Diagnostic Studies: Diagnostic tests reviewed for today's visit, films/specimens were personally reviewed by me. CXR 10/05 IMPRESSION: 1. Stable appearing nonspecific mixed interstitial and airspace opacities in both lungs. VQ Scan 09/2023 IMPRESSION: No scintigraphic evidence of chronic thromboembolic disease. CT Chest 09/2023 IMPRESSION: 1. No CT evidence of pulmonary embolism. 2. Somewhat mosaic lung attenuation pattern which can be seen with small airways disease. 3. Scattered reticular and groundglass densities which may represent areas of inflammation/atelectasis. There may be a component component of chronic interstitial lung disease/pulmonary fibrosis. Follow-up CT may be helpful for further evaluation. 4. Mediastinal and hilar lymphadenopathy. TTE 09/2023 CONCLUSIONS: - Technically difficult exam due to body habitus. - Exam indication: Re-evaluation of known pulmonary hypertension (to guide therapy) - The left ventricle is normal in size. Left ventricular systolic function is normal. EF = 65 5% (2D biplane) Definity contrast used for endocardial border detection. Normal left ventricular diastolic function. - The right ventricle is mildly dilated. RV appears mildly dilated in limited accoustic views. RV systolic tissue Doppler velocity is 10.0 cm/s. - There are no significant valvular abnormalities. - There is no pericardial effusion. - No evidence of pulmonary hypertension by Doppler or appearance of the right-sided chambers. - The patient has not had a prior [facility] echocardiographic exam for comparison. RHC 09/2023 RHC determinations Determinations Result Units Rhythm A.Fib Inspired fraction of oxygen 44.00 % Nasal cannula Flow 6.00 L/min SpO2 98.00 % Systolic BP 122.00 mmHg Diastolic BP 59.00 mmHg Mean BP 80.00 mmHg Heart Rate 80.00 bpm Height 154.90 cm Weight 71.40 Kg Body surface area 1.71 m2 Body mass index 29.76 kg/m2 Right Atrial Pressure (mean) 1.00 mmHg Right Atrial Pressure (V-wave) 10.00 mmHg Right Ventricular Systolic Pressure 62.00 mmHg Right Ventricular Diastolic Pressure 0.00 mmHg Systolic pulmonary artery pressure 62.00 mmHg Mean pulmonary artery pressure 39.00 mmHg Diastolic pulmonary artery pressure 28.00 mmHg Pumonary artery pulse pressure 34.00 mmHg Pulmonary artery occlusion pressure (mean) 2.00 mmHg Pulmonary artery occlusion pressure (end-expiration) mid a wave 5.00 mmHg Pulmonary artery occlusion pressure (end-expiration) peak v wave NA Diastolic pulmonary gradient 23.00 mmHg Transpulmonary gradient 34.00 mmHg Pulmonary artery capacitance 1.99 mL/mmHg Cardiac output (thermodilution) 5.40 L/min Cardiac index (thermodilution) 3.17 L/min/m2 Cardiac output (indirect LEV) 4.42 L/min Cardiac index (indirect LEV) 2.59 L/min/m2 Systemic vascular resistance 1170.37 dynes/sec/cm5 Stroke volume 67.50 mL Stroke volume index 39.57 mL/m2 Right ventricular stroke work index 20.45 g*m/m2 Pulmonary vascular resistance 6.30 Wood Units Hemoglobin (mixed venous) 14.20 g/dL Arterial oxyhemoglobin 98.00 % Mixed venous oxyhemoglobin 73.00 % Lactic acid (arterial) NA mmol/L Abbreviated version Right Atrial Pressure (mean) 1.00 mmHg Mean pulmonary artery pressure 39.00 mmHg Pulmonary artery occlusion pressure (end-expiration) mid a wave 5.00 mmHg Cardiac index (thermodilution) 3.17 L/min/m2 Pulmonary vascular resistance 6.30 Wood Units Mixed venous oxyhemoglobin 73.00 % Saturations SaO2 PAWP NA % SaO2 PA 73.00 % SaO2 RA 74.00 % SpO2 98.00 % Vasoreactive Challenge (Inhaled NO 40ppm/5 mins) Systolic pulmonary artery pressure 61.00 mmHg Mean pulmonary artery pressure 40.00 mmHg Diastolic pulmonary artery pressure 30.00 mmHg Pumonary artery pulse pressure 31.00 mmHg Pulmonary artery occlusion pressure (mean) 2.00 mmHg Pulmonary artery occlusion pressure (end-expiration) mid a wave 5.00 mmHg Pulmonary artery occlusion pressure (end-expiration) peak v wave NA Cardiac output (thermodilution) 5.60 L/min Cardiac index (thermodilution) 3.28 L/min/m2 Pulmonary vascular resistance 6.25 Wood Unit WAVEFORMS: Right Atrial Pressure: Pulmonary Artery Pressure: PAWP: RV PullBack: Estimated Blood Loss: Scant Specimens: Mixed venous blood gases. Complications: None. Introducer removed without complications. Pressure applied for 10 minutes. No Bleeding. Condition of Patient After Procedure: stable Summary: Precapillary PH with preserved cardiac index. Negative nitric oxide response. Plan: F/U with Dr Godwin or Dr Julien in outpatient setting. Low salt in the diet. 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 Recommend initiation of Tyvaso DPI 16mcg QID ---> 64mcg as tolerated. 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 Recommend further evaluation of ILD with additional AI serologies, myositis panel, and HP panel. - Obtain PFTs - Will discuss with ILD multidisciplinary - With regards to PH, +++ clinical improvement with tyvaso. Recommend ongoing uptitration to 64 mcgs QID as tolerated. Will increase dose every 4 weeks as tolerated - Obtain 6MWT, ambulatory O2 eval - Continue supplemental O2 at 4-6LNC - Recommend continuation of Advair 500/50 BID as ordered - Follow up in 4 months No follow-ups on file. Amol Godwin MD October 24, 2023 6:11 AM documented in this encounterMagruder Hospital05-29-2024 NoteHNO ID: [id number] Author: AMOL GODWIN MD Service: ? Author Type: Physician Type: Progress Notes Filed: 10/24/2023 14:56 Note Text: Patient Name: Makenna Andre PRIMARY CARE PHYSICIAN: Hoda Del Rosario MD Date of visit: October 24, 2023 COMMUNICATION WILL BE SENT VIA SHARED MEDICAL RECORDS OR US MAIL. Subjective: Makenna Andre is a 67 year old female who is known to this clinic and presents as follow up for recently diagnosed PH-ILD. Patient known to me after she was recently hospitalized for acute (on chronic) hypoxic respiratory failure (10/01-10/06) in which work-up revealed presence of significant interstitial lung disease/fibrosis on CT chest and presence of pulmonary hypertension as suggested by echo. She eventually underwent inpatient RHC which was impressive for precapillary PH (results below). She presents today to establish care in clinic. Recommendations at time of discharge were to undergo SNIFF testing given elevation in R hemidiaphragm as well as initiation of inhaled treprostinil. With regards to patients history, patient had no respiratory issues the majority of her life. This all changed last Spring (08/2022) when she started to develop leg swelling, but ironically no shortness of breath. She went to PCP and was immediately sent to ED. In [place] ED she underwent imaging and she was told she had double pneumonia not from bacterial or virus in which she was placed on abx. She was also placed on oxygen at the time. Symptoms predominantly were reduced energy. Denied SOB/dyspnea, coughing, wheezing, or palpitations. She believes this pneumonia was potentially related to her hip surgery which she had 1 month before this all started. She was being seen by a battery tester in [place] and was told she may have COPD. She was placed on Advair 500/50 BID in which she was prescribed this since 07/2023 with minimal benefit. She was referred to [facility] for second opinion and on arrival patient was found to be in acute on chronic hypox respiratory failure and thus sent to hospital to be further evaluated with results discussed above. Since her hospitalization she was discharged on 6LNC (increased from 4LNC) and started on Tyvaso DPI. With regards to later, she endorses marked improvement in energy and symptoms overall since starting the Tyvaso. She has reduced her O2 to 5LNC as 6L was too much and I'm still doing OK. Denies any pedal edema, chest pain, shortness of breath, palpitations, fevers, chills, or NS. Weight is stable. She never grew up on farm. She owns inside cat/dog (pug/bulldog). Denies birds at this time. She did have a bird, cockateel for about 6 years over 28 years ago. Denies any bird exposures, rodent manifestations, bats exposures, jacuzzi, or mold in the house. 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 + dust exposure in which she frequently blew black out of her nose. Denies any unusual hobbies. Had remote cigarette use predominanly socially 3 cigarettes/week, last cigarette was > 40 years ago. Denies drug use, ETOH abuse (occasional social use). Has been on statin for years. Has no personal hx of AI. Family hx of lupus (cousins). + arthritis involving hands. PMHx: PAST MEDICAL HISTORY Diagnosis Date Allergic rhinitis, cause unspecified Essential hypertension, benign Family history of ischemic heart disease father age 50, brother age 42 Obesity, unspecified MEDICATIONS: OXYGEN, HOME THERAPY, Inhale 6-10 L/min as instructed continuous. dilTIAZem LA (CARDIZEM LA) 240 mg 24 hr tablet Take 240 mg by mouth once daily. acetaminophen (TYLENOL ARTHRITIS PAIN) 650 mg CR tablet Take 1 tablet by mouth every 8 hours as needed for pain. cyanocobalamin (VITAMIN B-12) 1,000 mcg tab Take 1,000 mcg by mouth once daily. Chromium Picolinate 200 mcg tab Take 1 tablet by mouth once daily. vitamin E, dl,tocopheryl acet, (VITAMIN E, DL, ACETATE,) 180 mg (400 unit) capsule Take 1 capsule by mouth once daily. Glucosamine-Chondroitin (OSTEO BI-FLEX) 250-200 mg tab Take 2 tablets by mouth once daily. potassium chloride ER (KLOR-CON) 20 mEq tablet Take 1 tablet by mouth once daily. calcium carb-D3-mag ox-zinc ox (NISH MAG ZINC PLUS D3) 333 mg-133 unit -133 mg-5 mg tab Take 1 tablet by mouth once daily. levothyroxine (SYNTHROID) 50 mcg tablet Take 1 tablet by mouth daily before breakfast. pravastatin (PRAVACHOL) 20 mg tablet Take 1 tablet by mouth once daily. turmeric root extract 500 mg cap Take 1 capsule by mouth once daily. vit A and D3 in cod liver oil 1,250-135 unit cap Take 1 capsule by mouth once daily. furosemide (LASIX) 40 mg tablet Take 1 tablet by mouth once daily. fluticasone-salmeterol (ADVAIR) 500-50 mcg/dose dsdv Inhale 1 Puff as instructed two times a day. Echinacea 500 mg cap Take 1 capsule by mouth two time (more content not included)...[facility]05-21-2024 Telephone encounter Note* Telephone Encounter - Eva Payne - 10/16/2023 10:16 AM EDT Pt already scheduled a hospital follow up with Dr. Godwin on 10-24-23 [facility]05-21-2024 Miscellaneous Notes* Telephone Encounter - Eva Payne - 10/16/2023 10:16 AM EDT Pt already scheduled a hospital follow up with Dr. Godwin on 10-24-23 * Telephone Encounter - Bertin Warren PA-C - 10/08/2023 8:07 AM EDT Please schedule hospital follow-up for PH with Dr. Godwin. [facility] Nurse [facility]* DonnieSteve - 10/11/2023 3:04 PM EDT DRUG NAME: TYVASO DPI PA APPROVAL INFO: PA APPROVED, [employer], [employer] APPROVED. SP: [facility] [employer] ROUTED FOR DOSING INSTRUCTIONS AND SIDE EFFECT MANAGEMENT. Steve Fields Admin Optical Instrument Inspector Pulmonary Hypertension & HHT [facility]05-16-2024 Nurse Note* DonnieSteve - 10/11/2023 3:04 PM EDT DRUG NAME: TYVASO DPI PA APPROVAL INFO: PA APPROVED, [employer], [employer] [place] APPROVED. SP: [employer] [facility] ROUTED FOR DOSING INSTRUCTIONS AND SIDE EFFECT MANAGEMENT. Steve Fields Admin Optical Instrument Inspector Pulmonary Hypertension & HHT [facility] Telephone encounter Note * Telephone Encounter - Amol Godwin MD - 10/11/2023 11:01 AM EDT Looks like patient qualifies based on testing done at [facility] on 06/2023. Will order AC [facility]05-16-2024 Miscellaneous Notes* Telephone Encounter - Amol Godwin MD - 10/11/2023 11:01 AM EDT Looks like patient qualifies based on testing done at [facility] on 06/2023. Will order AC * Telephone Encounter - Amber Holman MA - 10/10/2023 11:59 AM EDT Please see message below, thank you Pt is requesting portable oxygen Amber Holman MA Recent Office Visits - This Specialty 10/02/2023 Pulmonary HTN (HCC) Pulmonary Medicine Arie Lee MD NOV: 10/24/2023 * Telephone Encounter - Pearl Connor - 10/10/2023 11:47 AM EDT Patient wants to know how she can get portable oxygen. Please advise at [phone]. [facility] Telephone encounter Note * Telephone Encounter - Amber Holman MA - 10/10/2023 11:59 AM EDT Please see message below, thank you Pt is requesting portable oxygen Amber Holman MA Recent Office Visits - This Specialty 10/02/2023 Pulmonary HTN (HCC) Pulmonary Medicine Arie Lee MD NOV: 10/24/2023 [facility]05-15-2024 Telephone encounter Note* Telephone Encounter - Pearl Connor - 10/10/2023 11:47 AM EDT Patient wants to know how she can get portable oxygen. Please advise at [phone]. [facility]05-13-2024 Telephone encounter Note* Telephone Encounter - Bertin Warren PA-C - 10/08/2023 8:07 AM EDT Please schedule hospital follow-up for PH with Dr. Godwin. [facility]05-10-2024 Nurse Note* Steve Fields - 10/05/2023 10:06 AM EDT PAH DRUG NAME: TYVASO DPI REFERRAL SUBMITTED TO [facility] AND [facility]: [id number] ADDED PATIENT TO NEW DRUG AUTH PENDING Epic LIST. Steve Fields Admin Optical Instrument Inspector Pulmonary Hypertension & HHT [facility]05-10-2024 Nurse Note* Steve Fields - 10/05/2023 10:06 AM EDT PAH DRUG NAME: TYVASO DPI REFERRAL SUBMITTED TO [facility], [facility] AND [facility]: [id number] ADDED PATIENT TO NEW DRUG AUTH PENDING Epic LIST. Steve Fields Admin Optical Instrument Inspector Pulmonary Hypertension & HHT [facility] Nurse Note* Bradly Jernigan MA - 10/02/2023 2:39 PM EDT [facility] Emergency Response Form. NOT TO BE USED AT [facility] Complete this report when the Emergency Medical Response is activated (911 calls/EmergencyTransportto the ED) or when a Code Sheet is utilized in the care of a patient (i.e., ASC) Date of the Event: 10/02/2023 Time of the Event:02:19 pm Was emergency response activated? (Local EMS/Emergency Department) YES Location of the Incident: Other Facility [address] Reason/Chief Complaint for Emergency Call (Check all that apply): Respiratory Arrest/Difficulty Breathing CPR Initiated-Chest Compressions and/or Rescue Breathing Provided: NO (Must provide value) Facility AED Used-Automatic External Defibrillator: NO EMS AED Used-Automatic External Defibrillator: NO Prior to EMS arrival, was any treatment administered? YES Describe treatment Pt was put on Oxygen on 8 liters. Patient Disposition: Transferred to Hospital ED Formal Service Waiter information: Name of Provider- Arie Lee MD [facility]05-07-2024 Nurse Note* Bradly Jernigan MA - 10/02/2023 2:39 PM EDT [facility] Emergency Response Form. NOT TO BE USED AT [facility] Complete this report when the Emergency Medical Response is activated (911 calls/EmergencyTransportto the ED) or when a Code Sheet is utilized in the care of a patient (i.e., ASC) Date of the Event: 10/02/2023 Time of the Event:02:19 pm Was emergency response activated? (Local EMS/Emergency Department) YES Location of the Incident: Other Facility [address] Reason/Chief Complaint for Emergency Call (Check all that apply): Respiratory Arrest/Difficulty Breathing CPR Initiated-Chest Compressions and/or Rescue Breathing Provided: NO (Must provide value) Facility AED Used-Automatic External Defibrillator: NO EMS AED Used-Automatic External Defibrillator: NO Prior to EMS arrival, was any treatment administered? YES Describe treatment Pt was put on Oxygen on 8 liters. Patient Disposition: Transferred to Hospital ED Formal Service Waiter information: Name of Provider- Arie Lee MD documented in [facility] encounterMag[facility] History of Present illness Narrative* Arie Lee MD - 10/02/2023 2:08 PM EDT Was referred for pulmonary hypertension to be seen by Dr. Amol Godwin. On arrival she was found to be hypoxic down to 63% on her pulse ox at 3 L. She was placed on continuous flow at 8 L, and coached on breathing until she was up to 98%. Then she was weaned down to 6 L. Blood pressure was as reported below. Considering that the patient became significantly hypoxic and they live more than an hour away we will call a rapid response team to send the patient to the emergency department. Spoke to the ED physician gave him a quick update about the patient. Patient might need admission for further workup including consultation with pulmonary for pulmonaryhypertension workup. Temp: 36.3 C (97.3 F) Temp src: Temporal Resp: 20 Vitals and Red Flags were reviewed in provider s note dated today. Arie Lee MD 2:46 PM October 02, 2023 documented in [facility] encounterMag[facility]02[facility]29[facility]10-31-[facility] History and physical note Author John Wheatley [facility] March 27, 2023 9:45am Note Date/Time March 16, 2023 9 :27am [facility] Medical Records Department [address] [place] [address] History & Physical Exam 03/16/23 0927 MR#: [id number] Acct: [id number] Name: MAKENNA ANDRE Rep #:[id number] : 1955 67 From: John Wheatley MD PCP: Dr. Hoda Del Rosario MD Status:PRE [facility] [place] Location: [facility] History and Physical Date of Admission: 03/21/23 This is a 67-year-old lady who presents today for cardiac catheterization, following an abnormal stress test. She has a past medical history significant for hypertension. According to her, earlier this year she had a bout of pneumonia. Ever since then, she has been having shortness of breath. She had ahospitalization back in August of this year. She was diagnosed with congestive heart failure. Echocardiogram was done. Normal left ventricular systolic function was noted. No evidence of diastolic dysfunction was noted. Right heart was noted to be dilated with impaired right ventricular systolic pressure. Pulmonary artery pressures were noted to be 60 mmHg. Patient has had PFTs done recently. These showed primarily restrictive defect with impaired DLCO. She has been put on ambulatory oxygen therapy. Also diagnosed with sleep apnea and has recently started using CPAP. Patient denies any chest pains either at rest or with exertion. She does get short of breath with mild to moderate exertion. Denies any orthopnea. No PND. No recent ankle edema. Denies any palpitations. Intake Vital Signs SEE EMR Allergies SEE EMR Medications SEE EMR Ejection fraction %: 60 to 64 PFSH Medical History Arthritis Chronic respiratory failure with hypoxia Essential (primary) hypertension History of edema Obesity On home oxygen therapy Pneumonia Shortness of breath on exertion Surgical History History of excision of lesion History of right hip replacement Hx of left cataract extraction Hx of right cataract extraction Hx of tonsillectomy Family History Father , 53 CVA (cerebral vascular accident) CAD (coronary artery disease) Myocardial infarctionBrother Myocardial infarction CAD (coronary artery disease)Brother CAD (coronary artery disease) stentBrother CAD (coronary artery disease) stent Social History household members: spouse housing: house Smoking Status: Former smoker how long ago did patient quit smokin plus years ago alcohol intake: current alcohol intake frequency: holidays/special occasions only substance use type: does not use caffeine: Yes Type: carbonated beverages Number of servings: 4 and coffee ROS Const Const: Positive for difficulty sleeping (new cpap); Negative for fatigue, weakness, headache(s), frequent falls or excessive sweating Eyes Eyes: Negative for loss of peripheral vision, transient loss of vision, blurry vision, double vision or tunnel vision ENT ENT: Negative for headache(s), dizziness, Nosebleed/epistaxis or balance problems Cardio Chest Pain: No Palpitations: No Edema: None Muscle aches with walking: None Resp Respiratory: Positive for SOB with activity; Negative for SOB at rest, SOB orthopnea\SOB lying down, Cough or paroxysmal nocturnal dyspnea GI GI: Negative nausea, vomiting, heartburn or black,tarry stools : Positive for frequent nighttime urination/ nocturia; Negative for hematuria Musc Musc: Negative for muscle aches/ myalgia, muscle weakness, joint pain or balanceproblems Skin Skin: Negative non-healing lesions, rash or unusual bruising Neuro Neuro: Negative for dizziness, lightheadedness, near syncope, syncope, frequent falls, headache(s), weakness, blurry vision, double vision or lack of coordination Sacha Hematologic/Lymphatic: Negative for easy bleeding or easy bruising Endo Endo: Negative for fatigue, excessive sweating or increased thirst/drinking Psych Psych: Negative for anxiety or depression Allergy Allergy/Immunology: Negative for hives and Negative for rash Cardiology Exam Const Appearance: comfortable and no acute distress Nutritional Appearance: well nourished Neck Neck: no JVD Carotids: Negative bruit Chest Auscultation: Bilateral: Clear to Auscultation Cardio Rate: regular rate Rhythm: regular rhythm Heart sounds: S1 normal and S2 normal Neuro General: patient alert, patient awake and patient oriented x3 Extremities Lower Extremity Edema: None: Bilateral Supplemental Info Supplemental Information Stress test 02/22/2023: Procedure: Pharmacologic stress nuclear imaging study Indications: Dyspnea on exertion Consent: Per the patient Procedure: The patient underwent pharmacologic (Regadenoson 0.4mg ) evaluation with a peak heart rate of 106 beats per minute (69%predicted maximal heart rate) and a peak blood pressure of 136/68 mmHg. The baseline ECG demonstrated sinus rhythm. The peak pharmacologic ECG demonstrated no ischemic changes. There were no cardiac dysrhythmias pretest, during pharmacologic infusion, or recovery. There was no complaint of chest discomfort during pharmacologic infusion or recovery. The patient was injected with 11.2 millicuries of technetium 99m Cardiolite and subsequently rest SPECT Cardiolite nuclear imaging was obtained in the horizontal long, vertical long, and short axis views. The patient underwent pharmacologic (Regadenoson) evaluation. The patient was injected with 36.0 millicuries of technetium 99m Cardiolite and subsequently stress SPECT Cardiolite nuclear imaging was obtained in the horizontal long, vertical long, and short axis views. A gated Cardiolite study at peak stress was obtained. The examination was stopped secondary to completion of protocol. Rest and stress SPECT Cardiolite nuclear imaging status post realignment, normalization, and attenuation correction demonstrate a small sized apical and septal reversible perfusion defect of mild intensity suggestive of ischemia. There is end systolic thickening and brightening. The gated Cardiolite study demonstrates myocardial thickening and inward wall motion. The reported LVEF is89%. Impression: 1. Pharmacologic (Regadenoson) evaluation 2. Peak pharmacologic ECG with no ischemic changes. 3. There were no cardiac dysrhythmias pretest, during pharmacologic infusion, or recovery. 5. Small apical and septal reversible perfusion defect suggestive of mild ischemia. 6. The gated Cardiolite study reports an LVEF of 89%. Echocardiogram 09/21/22: Interpretation Summary The estimated ejection fraction is 60 %. No evidence for diastolic dysfunction. Mildly dilated right ventricle. Mildly decreased right ventricular systolic function CTA Chest 11/08/22: Impression No evidence of pulmonary embolism or aortic dissection. COPD related changes with prominent interstitium consistent with underlying interstitial edema and scattered alveolar edema in the cardiogenic setting, clinically correlate. PULMONARY FUNCTION TEST 01/02/23: INTERPRETATION: Forced expiration spirometry demonstrates no evidence of a large airways obstructive ventilatory defect. There was no significant response to aerosolized bronchodilators. Spirograms are of good quality and plateau normally. Body plethysmography was performed and revealed a decreased TLC to 2.16 L, 47% of predicted, indicative of a severe restrictive ventilatory impairment. Diffusing capacity by single breath CO is reduced at 30% of predicted. IMPRESSION: Severe restrictive ventilatory impairment with symmetric reduction in diffusing capacity. Assessment and Plan Assessment and Plan (1) Dyspnea on exertion: Status: Chronic Plan: Patient acknowledges RODRIGUEZ. Her most recent stress test demonstrated a small apical and septal reversible perfusion defect suggestive of mild ischemia. Will proceed with a cardiac catheterization to further assess this. Depending on results, further recommendations will be made. (2) Abnormal Stress Test: Patients stress test from 02/22/2023 demonstrated a small apical and septal reversible perfusion defect suggestive of mild ischemia. Will proceed with a cardiac catheterization to furhter assess this. Depending on results, further recommendations will be made. 03/27/23944 <Electronically signed by John Wheatley MD> Cosigner Signature (if applicable): 03/16/23930 <Electronically signed by Kylah STEPHEN> CC: ZAFAR Wan; Dr. John Wheatley MD; Dr. oHda Del Rosario MD~ Signed [facility] Work Phone: 1(496) 116-870608-15-2023 Procedure [facility] 01-09-2023 Procedure [facility]08-08-2023 Procedure note [facility]06-06-2023 Dis[facility] October 31, 2022 3:57pm Note Date/Time October 31, 2022 2:01p m [facility] Physical Therapy [facility] [address] [place] [address] [address] [place] [address] / REHABILITATION SERVICES DISCHARGE SUMMARY MR#: [id number] Acct: [id number] Name: MAKENNA ANDRE Rep #: [id number] : 1955 66 From: Cert. NAVA BrowerT, OCS Referring Dr.: Dr. Alphonse Santos MD Status: REG R Insurance: [employer]Y INSURANCE It has been my pleasure to treat MAKENNA ANDRE referred by Dr. Alphonse Santos MD, with the diagnosis of UNILTAERL PRIMARY OSTEOARTHRITIS RIGHT HIP for a totalof 13 visit(s). Discharge Date: 10/31/22 Please see the following information for a summary of their discharge status. Subjective: Ready for d/c ,patient want to do ex's at home Right Hip Pain Intensity (Out of 10): 0 % Improvement: 85 Objective/Function: POSTURE: mild forward posture. EDEMA: pitted edema . GAIT:ambulated with QC slow kristie step 2 point Ambulated with QC with 2 point slow kristie .BALANCE: fair+ with CANE. STAIRS: one step 12 at with railings. AROM: supine knee flexion 115degrees ,hip flexion 90 degrees ,hip [id number] . MMT: ( peak force) quads 34.7 ,hip flexion 16.5 ,hip abduction 0 ,hamstrings 26.8. SOB with gait Sp02 99%. Patient cont to have weakness in glut Medius stressed importance of increasing strength with ex's at home and use cane until get stronger Goal 1:: Patient to be I with HEP for FREDERICK Goal Progress: Progressing Goal 2:: Patient to ambulate with least restrictive device with improved qualityof gait Goal Progress: Progressing Goal 3:: Patient to improve peak force hip/quads/hamstrings by 10-15 to improve gait. Goal Progress: Progressing Goal 4:: Patient to improve LFES by 10 -15 points to improve QOL and function. Goal Progress: Progressing Goal 5:: Patient to improve WOMAC score by 10 points to improve QOL and function Goal Progress: Progressing Goal 6:: Patient to improve TUG score by 15 sec < to improve gait Plan: D/C TO HEP Discharge Comments: HEP If there are questions or concerns regarding this patient's physical therapy, please feel free to call me at [phone]. Thank you for the referral of thispatient. Sincerely, Jairo Steward PT, Cert T, OCS Balance/Gait/Functional tests - Balance/Special Test Scores Lower Extremity Functional Score: 43 TUG Test Time Seconds: 11.6 Tug Test: <20 sec.=mostly independent WOMAC Total Score: 16 WOMAC Percentage: 83.3400 <Electronically signed by Jairo Steward PT Cert. DYANA, DILCIA> 10/31/22 9776 CC: Dr. Hoda Del Rosario MD; Dr. Alphonse Santos MD ~ NANDO Signed [facility] Work Phone: 1(928) 167-843405-03-[address] Woo [facility] September 27, 2022 9:11am Note Date/Time September 27, 2022 9:08am [facility] Medical Records Department [address] [place] [address] Discharge Summary 09/27/22 09 MR#: [id number] Acct: [id number] Name: MAKENNA ANDRE Rep #:[id number] : 1955 66 From: Kory Woo MD PCP: Dr. Hoda Del Rosario MD Status:ADM IN Location: [place] [address] Providers Date of Admission: 09/21/22 Date of Discharge: 09/27/22 Primary Care Physician: Dr. Hoda Del Rosario MD Consultations 09/25/22 14:51 Consult: Executive Communications Manager / Pulmonary Medicine Routine Consulting Provider: Kamari Shi Reason for Consult: Respiratory failure EMERGENT Consult: No MD Notified: Yes Date Notified: 09/25/22 Time Notified: 14:51 Method of Notification: Text Reason For Visit: HYPOXIC RESPIRATORY FAILURE/ACUTE DECOMPENSATED Diagnosis Discharge Diagnosis (1) Acute decompensated heart failure: Status: Acute Code(s): I50.9 - Heart failure, unspecified Plan Patient is a 66-year-old lady admitted with shortness of breath and bilateral lower extremity swelling. An assessment of acute congestive heart failure with preserved ejection fraction made admitted to a monitored bed where patient is currently being managed 1. Acute hypoxic and hypercapnic respiratory failure ? Secondary to congestive heart failure necessitating the use of noninvasive ventilation BiPAP with oxygen which is currently being titrated to keep saturation greater than 90. ? 09/26/2022; patient has been weaned off BiPAP currently on nasal cannula ? 09/27/2022; patient was assessed for home oxygen the patient did qualify as she will need portability since patient is more active at home as well as in the community 2. Acute metabolic encephalopathy ? Secondary to patient hypercapnia patient is on BiPAP to expect improvement with improvement in her CO2 levels ? 09/26/2022; patient level of sensorium markedly improved. Seen in consultation by Dr. Shi with pulmonary medicine notes and recommendations reviewed 3. Acute congestive heart failure with preserved ejection fraction ? Echo demonstrated EF of 60%. Patient managed with fluid restriction, daily weight, strict input and output low-sodium diet as well as IV diuretics 4. Hypokalemia ? Secondary to patient diuresis corrected per protocol repeat labs ordered for monitoring 5. Hypothyroidism - Patient is on levothyroxine home dose continued 6. Essential hypertension ? Patient is on lisinopril and HCTZ currently being held 7. Moderate pulmonary hypertension ? Patient is on Lasix as well as noninvasive ventilation with BiPAP 8. DVT prophylaxis - On enoxaparin 9. Physical deconditioning - Requested for PT OT eval and social studies teacher to assist with discharge planningpatient to continue with outpatient physical therapy Time spent in the patient's overall evaluation,decision-making process, review of diagnostic data, adjustment of management, discussion with other providers, nursing nursing and ancillary staff involved in patient's care documentation, 45 Minutes Medications at Discharge Home Medications acetaminophen 650 mg tablet,extended release 650 mg PO Q12H PAIN 09/21/22 aspirin 325 mg tablet 325 mg PO DAILY HEART HEALTH 09/21/22 levothyroxine 50 mcg tablet 50 mcg PO DAILY THYROID 09/21/22 furosemide 40 mg tablet 40 mg PO BIDLX #60 tabs 09/27/22 lisinopril 5 mg tablet 5 mg PO DAILY #60 tabs 09/27/22 potassium chloride 20 mEq tablet,extended release(part/cryst) (Klor-Con M) 20 meq PO BIDCM #30 tabs 09/27/22 Hospital Course Procedures 2-D Echocardiogram Summary of Care Provided Minutes Spent on Discharge: 45 Physical Exam Narrative GENERAL: Cooperative HEENT: Atraumatic; normocephalic EYES; Anicteric, Normal Conjunctiva NECK; supple, normal thyroid, RESPIRATORY:, Diminished with occasional crackles CARDIOVASCULAR: Regular S1 S2, GI: soft, normoactive bowel sounds, : No Renal angle tenderness; EXTREMITIES: No edema, no clubbing, MUSCULOSKELETAL: no muscle wasting NEURO: Awake; no lateralizing signs. SKIN: No Rash PSYCH; flat affect Weight / BMI Weight Weight: 69.5 kg Body Mass Index (BMI) 28.9 ABG / Lab / Microbiology Data Result Diagrams: 09/27/22 04:34 09/27/22 04:34 Laboratory: Laboratory Results - last 24 hr 09/25/22 06:20: Procalcitonin 0.10 H 09/26/22 05:15: B-Natriuretic Peptide 48.0 09/26/22 05:15: Rheumatoid Factor < 10.0 09/27/22 04:34: WBC 7.2, RBC 4.84, Hgb 13.6, Hct 45.7, MCV 94.4, MCH 28.1, MCHC 29.8 L, RDW Std Deviation 57.4 H, RDW Coeff of [place] 16.5 H, Plt Count 287, MPV 9.7, Immature Gran % (Auto) 0.100, Neut % (Auto) 61.4, Lymph % (Auto) 23.4, Day% (Auto) 12.4 H, Eos % (Auto) 2.4, Baso % (Auto) 0.3, Absolute Neuts (auto) 4.4,Absolute Lymphs (auto) 1.68, Nucleated RBC % 0 09/27/22 04:34: Sodium 133 L, Potassium 3.1 L, Chloride 81 L, Carbon Dioxide > 45.0 H*, Anion Gap TNP, BUN 21 H, Creatinine 0.68, Estim Creat Clear Calc 41.76,Est GFR (MDRD) Af Amer 111, Est GFR (MDRD) Non-Af 92, BUN/Creatinine Ratio 30.8 H, Glucose 100, Calcium 9.5 Microbiology: Microbiology 09/21/22 17:00 Blood Culture (Wb) - Anticubital Left Blood Culture - Final No growth in 5 days. 09/21/22 17:00 Blood Culture (Wb) - Anticubital Right Blood Culture - Final No growth in 5 days. 09/21/22 18:35 Urine, Clean Catch Urine Culture - Final Mixed Alf 09/21/22 22:00 Mucosa - Nasopharyngeal Respiratory Panel (PCR) - Final 09/21/22 17:03 Nasal Secretion SARS-CoV-2 & FLU Antigen (Rapid) - Final Radiography Diagnostic Testing: Radiology Impression Chest X-Ray 09/26/22 08:45 IMPRESSION: Improved aeration of the right upper lobe infiltration. Residual changes persist. Stable increased markings at the left lung base. Electronically Signed: Marcin Telles MD at 9:40 EDT , D/C Instructions Discharge Diet: Low fat / Low cholesterol, 8 Cup Fluid Restriction and 2000 mg Sodium Diet Discharge Activity: Return to Normal Activity Call your doctor if you observe: Fever of 101 or Higher, Shortness of breath, Fainting spells and Chest pain Meaningful Use Info Meaningful Use Diagnoses (Choose all that apply): CHF CHF TUTU/ARB ordered at discharge?: Yes Documented LVEF (%): 60 Discharge Plan Admission Admit Date/Time: 09/21/22 18:51 Attending Provider: Kory Woo Primary Care Provider: Hoda Del Rosario Consulting Providers: Em Diamond ; Silvestre Suero ; Kamari Shi Discharge Orders/Prescriptions Prescriptions: New furosemide 40 mg Tablet 40 mg PO BIDLX Qty: 60 0RF potassium chloride [Klor-Con M20] 20 mEq Tablet,Er Particles/Crystals 20 meq PO BIDCM Qty: 30 0RF lisinopril 5 mg tablet 5 mg PO DAILY Qty: 60 0RF Continued aspirin 325 mg Tablet 325 mg PO DAILY acetaminophen 650 mg Tablet Extended Release 650 mg PO Q12H levothyroxine 50 mcg tablet 50 mcg PO DAILY Label Comments: TAKE 1 TABLET BY MOUTH ONCE DAILY ON AN EMPTY STOMACH Discontinued lisinopril-hydrochlorothiazide 10-12.5 mg tablet 1 tab PO QHS Label Comments: TAKE 1 TABLET BY MOUTH ONCE DAILY AT BEDTIME Referrals / Follow Up: Hoda Del Rosario MD [Primary Care Provider] - In 1 Week Disposition Disposition (needs filled in before D/C Order can be placed): Home, Self Care Charges/Coding Visit Charges Inpatient E&M: 66078 Disch Hosp >30min 09/27/22 0911 <Electronically signed by Kory Woo MD> Cosigner Signature (if applicable): CC: Dr. Kory Woo MD; Dr. Hoda Del Rosario MD~ Signed [facility] Work Phone: [phone] Woo [facility] September 27, 2022 9:06am Note Date/Time September 27, 2022 7:48am [facility] Medical Records Department [address] [place] [address] Progress Note - Hospitalist 09/27/22 0746 MR#: [id number] Acct: [id number] Name: MAKENNA ANDRE Rep #:[id number] : 1955 66 From: Kory Woo MD PCP: Dr. Hoda Del Rosario MD Status:ADM IN Location: [place] [address]- 1 Reason for Visit Reason for Visit: Diagnoses Hypokalemia (09/21/22) Heart failure, unspecified (09/21/22) Acute respiratory failure with hypoxia (09/21/22) Tachycardia, unspecified (09/21/22) Tachypnea, not elsewhere classified (09/21/22) Hyperglycemia, unspecified (09/21/22) Other specified abnormal findings of blood chemistry (09/21/22) Abnormal findings on diagnostic imaging of other specified body structures (09/21/22) Subjective Subjective Patient seen clinical condition continues to improve. Plan is for patient to beassessed for possible discharge Objective Data Objective Data Vital Signs: Vital Signs Temp Pulse Resp BP Pulse Ox O2 Del Method O2 Flow Rate 97.0 F L 102 H 25 H 124/67 H 99 Nasal Cannula 3 09/27/22 04:53 09/27/22 06:45 09/27/22 06:45 09/27/22 04:53 09/27/22 06:39 09/27/22 06:39 09/27/22 06:39 FiO2 35 09/27/22 03:50 Oxygen Flow Rate (L/min) [ 5 AMBULATING with Oxygen #3] Oxygen Flow Rate (L/min) [ 4 AMBULATING with Oxygen #2] Oxygen Flow Rate (L/min) [ 2 AMBULATING with Oxygen #1] Oxygen Flow Rate (L/min) [At 0 REST on Room Air] Oxygen Flow Rate (L/min) 3 Oxygen Delivery Method Nasal Cannula Weight: 69.5 kg Body Mass Index (BMI) 28.9 Intake & Output: Intake and Output for Last 24 Hours 09/25/22 09/26/22 09/27/22 23:59 23:59 23:59 Intake Total 780 / 1020 1620 / 1740 360 / 360 Output Total 800 / 800 Balance - 1620 / 1740 360 / 360 Lab / Micro Data Result Diagrams: 09/27/22 04:34 09/27/22 04:34 Labs: Laboratory Results - last 24 hr 09/25/22 06:20: Procalcitonin 0.10 H 09/26/22 05:15: B-Natriuretic Peptide 48.0 09/26/22 05:15: Rheumatoid Factor < 10.0 09/27/22 04:34: WBC 7.2, RBC 4.84, Hgb 13.6, Hct 45.7, MCV 94.4, MCH 28.1, MCHC 29.8 L, RDW Std Deviation 57.4 H, RDW Coeff of [place] 16.5 H, Plt Count 287, MPV 9.7, Immature Gran % (Auto) 0.100, Neut % (Auto) 61.4, Lymph % (Auto) 23.4, Day% (Auto) 12.4 H, Eos % (Auto) 2.4, Baso % (Auto) 0.3, Absolute Neuts (auto) 4.4,Absolute Lymphs (auto) 1.68, Nucleated RBC % 0 09/27/22 04:34: Sodium 133 L, Potassium 3.1 L, Chloride 81 L, Carbon Dioxide > 45.0 H*, Anion Gap TNP, BUN 21 H, Creatinine 0.68, Estim Creat Clear Calc 41.76,Est GFR (MDRD) Af Amer 111, Est GFR (MDRD) Non-Af 92, BUN/Creatinine Ratio 30.8 H, Glucose 100, Calcium 9.5 Micro: Microbiology 09/21/22 17:00 Blood Culture (Wb) - Anticubital Left Blood Culture - Final No growth in 5 days. 09/21/22 17:00 Blood Culture (Wb) - Anticubital Right Blood Culture - Final No growth in 5 days. 09/21/22 18:35 Urine, Clean Catch Urine Culture - Final Mixed Alf 09/21/22 22:00 Mucosa - Nasopharyngeal Respiratory Panel (PCR) - Final 09/21/22 17:03 Nasal Secretion SARS-CoV-2 & FLU Antigen (Rapid) - Final Radiography Diagnostic Testing: Radiology Impression Chest X-Ray 09/26/22 08:45 IMPRESSION: Improved aeration of the right upper lobe infiltration. Residual changes persist. Stable increased markings at the left lung base. Electronically Signed: Marcin Telles MD at 9:40 EDT , Physical Exam Narrative GENERAL: Cooperative HEENT: Atraumatic; normocephalic EYES; Anicteric, Normal Conjunctiva NECK; supple, normal thyroid, RESPIRATORY:, Diminished with occasional crackles CARDIOVASCULAR: Regular S1 S2, GI: soft, normoactive bowel sounds, : No Renal angle tenderness; EXTREMITIES: No edema, no clubbing, MUSCULOSKELETAL: no muscle wasting NEURO: Awake; no lateralizing signs. SKIN: No Rash PSYCH; flat affect Assessment & Plan Assessment/Plan (1) Acute decompensated heart failure: PLAN: Plan Patient is a 66-year-old lady admitted with shortness of breath and bilateral lower extremity swelling. An assessment of acute congestive heart failure with preserved ejection fraction made admitted to a monitored bed where patient is currently being managed 1. Acute hypoxic and hypercapnic respiratory failure ? Secondary to congestive heart failure necessitating the use of noninvasive ventilation BiPAP with oxygen which is currently being titrated to keep saturation greater than 90. ? 09/26/2022; patient has been weaned off BiPAP currently on nasal cannula 2. Acute metabolic encephalopathy ? Secondary to patient hypercapnia patient is on BiPAP to expect improvement with improvement in her CO2 levels ? 09/26/2022; patient level of sensorium markedly improved. Seen in consultation by Dr. Shi with pulmonary medicine notes and recommendations reviewed 3. Acute congestive heart failure with preserved ejection fraction ? Echo demonstrated EF of 60%. Patient managed with fluid restriction, daily weight, strict input and output low-sodium diet as well as IV diuretics 4. Hypokalemia ? Secondary to patient diuresis corrected per protocol repeat labs ordered for monitoring 5. Hypothyroidism - Patient is on levothyroxine home dose continued 6. Essential hypertension ? Patient is on lisinopril and HCTZ currently being held 7. Moderate pulmonary hypertension ? Patient is on Lasix as well as noninvasive ventilation with BiPAP 8. DVT prophylaxis - On enoxaparin Time spent in the patient's overall evaluation,decision-making process, review of diagnostic data, adjustment of management, discussion with other providers, nursing nursing and ancillary staff involved in patient's care documentation, 45 Minutes Charges/Coding Visit Charges Inpatient E&M: 27516 Subs Hosp L2 09/27/22 0906 <Electronically signed by Kory Woo MD> Cosigner Signature (if applicable): CC: ~ Signed [facility] Work Phone: [phone]) 801-637805-03-[address] Shi [facility] September 27, 2022 7:54am Note Date/Time September 27, 2022 6:20am [facility] Medical Records Department [address] [place] [address] Progress Note - Executive Communications Manager 09/27/22 0619 MR#: [id number] Acct: [id number] Name: MAKENNA ANDRE Rep #:[id number] : 1955 66 From: Kamair Jose Guadalupe ALVARADO PCP: Dr. Hoda Del Rosario MD Status:ADM IN Location: [place] [address] Assessment & Plan Assessment/Plan (1) Acute respiratory failure with hypoxia: PLAN: Plan RECOMMENDATIONS: 1. Wean supplemental oxygen to maintain saturations at or above 90%. 2. Continue bronchodilator therapy. 3. Continue diuretics as tolerated by hemodynamics and renal function. 4. Continue BiPAP therapy with naps and nightly. 5. Recommend outpatient PFTs and polysomnogram. 6. Perform walking oximetry study prior to consideration for discharge home. 7. The patient is to follow-up in the pulmonary medicine clinic 2 weeks after discharge. IMPRESSIONS: 1. Shortness of breath and hypoxemia The patient presented with lower extremity edema, shortness of breath and hypoxemia following total right hip arthroplasty 1 month ago. She has no pre-existing lung condition that she is aware of. However, arterial blood gas did demonstrate that the patient has chronic CO2 retention. Chest imaging demonstrated bilateral groundglass opacities, which could represent an inflammatory etiology versus edema. The patient remains on diuretics. Echocardiogram did reveal evidence of pulmonary hypertension. The patient is afebrile without leukocytosis, making infection unlikely. In light of her pulmonary hypertension, autoimmune and vasculitis panels were sent. There is noevidence for PE identified on CT imaging on presentation. The patient likely has some underlying chronic lung disease, which will require further outpatient evaluation with PFTs. In the interim, it is reasonable to continue diuretics astolerated by hemodynamics and renal function. I do anticipate that the patient will require home-going supplemental O2. The remainder of her secondary work-upfor pulmonary hypertension can be completed on an outpatient basis. I would eventually recommend that she undergo a sleep study as well. 2. Hypothyroidism/hypertension Complicates care, management, recovery and prognosis. Continue home medicationsas indicated. This note was generated with [employer] dictation software. It may contain incorrectwords, spelling, and punctuation that were not noted in checking the note beforesigning. Subjective Subjective The patient was seen and examined at the bedside this morning. Events from the last 24 hours have been reviewed. The patient is currently afebrile, hemodynamically stable and maintaining appropriate oxygen saturations on 2 L/minvia nasal cannula. The patient is documented to be overall net -2.3 L for the hospitalization. Potassium was low at 3.1 with a normal creatinine. Objective Data Objective Data The patient's most recent lab work, culture data and imaging studies have all been personally reviewed. Surface echocardiogram demonstrated preserved ejection fraction of 60% with a mildly dilated RV and pulmonary artery systolic pressure of 60 mmHg. Vital Signs: Vital Signs Temp Pulse Resp BP Pulse Ox O2 Del Method O2 Flow Rate 97.0 F L 103 H 20 H 124/67 H 100 Nasal Cannula 5 09/27/22 04:53 09/27/22 04:53 09/27/22 04:53 09/27/22 04:53 09/27/22 04:53 09/27/22 05:26 09/27/22 04:53 FiO2 35 09/27/22 01:22 Oxygen Flow Rate (L/min) [ 5 AMBULATING with Oxygen #3] Oxygen Flow Rate (L/min) [ 4 AMBULATING with Oxygen #2] Oxygen Flow Rate (L/min) [ 2 AMBULATING with Oxygen #1] Oxygen Flow Rate (L/min) [At 0 REST on Room Air] Oxygen Flow Rate (L/min) 5 Oxygen Delivery Method Nasal Cannula Weight: 153 lb 3.54 oz Body Mass Index (BMI) 28.9 Intake & Output: Intake and Output for Last 24 Hours 09/25/22 09/26/22 09/27/22 23:59 23:59 23:59 Intake Total 780 / 1020 1620 / 1740 120 / 120 Output Total 800 / 800 Balance - 1620 / 1740 120 / 120 Lab / Micro Data Attestation: I reviewed the patient's lab results. Result Diagrams: 09/27/22 04:34 09/27/22 04:34 Labs: Laboratory Results - last 24 hr 09/25/22 06:20: Procalcitonin 0.10 H 09/26/22 05:15: Sodium 137, Potassium 3.2 L, Chloride 84 L, Carbon Dioxide > 45.0 H*, Anion Gap TNP, BUN 23 H, Creatinine 0.70, Estim Creat Clear Calc 41.76,Est GFR (MDRD) Af Amer 107, Est GFR (MDRD) Non-Af 88, BUN/Creatinine Ratio 32.7 H, Glucose 107 H, Calcium 9.6, Phosphorus 3.9, Magnesium 1.9 09/26/22 05:15: B-Natriuretic Peptide 48.0 09/26/22 05:15: Rheumatoid Factor < 10.0 09/27/22 04:34: WBC 7.2, RBC 4.84, Hgb 13.6, Hct 45.7, MCV 94.4, MCH 28.1, MCHC 29.8 L, RDW Std Deviation 57.4 H, RDW Coeff of [place] 16.5 H, Plt Count 287, MPV 9.7, Immature Gran % (Auto) 0.100, Neut % (Auto) 61.4, Lymph % (Auto) 23.4, Day% (Auto) 12.4 H, Eos % (Auto) 2.4, Baso % (Auto) 0.3, Absolute Neuts (auto) 4.4,Absolute Lymphs (auto) 1.68, Nucleated RBC % 0 Micro: Microbiology 09/21/22 17:00 Blood Culture (Wb) - Anticubital Right Blood Culture - Preliminary No growth in 48 hours. 09/21/22 17:00 Blood Culture (Wb) - Anticubital Left Blood Culture - Preliminary No growth in 48 hours. 09/21/22 18:35 Urine, Clean Catch Urine Culture - Final Mixed Alf 09/21/22 22:00 Mucosa - Nasopharyngeal Respiratory Panel (PCR) - Final 09/21/22 17:03 Nasal Secretion SARS-CoV-2 & FLU Antigen (Rapid) - Final Radiography Diagnostic Testing: Radiology Impression Chest X-Ray 09/26/22 08:45 IMPRESSION: Improved aeration of the right upper lobe infiltration. Residual changes persist. Stable increased markings at the left lung base. Electronically Signed: Marcin Telles MD at 9:40 EDT , Physical Exam Const alert and no apparent distress General Appearance: cooperative HEENT normocephalic, head/scalp atraumatic and moist oral mucous membranes Eyes PERRL, EOMs intact bilaterally and conjunctivae normal Neck supple General: trachea midline Chest inspection of chest normal Resp normal respiratory effort Auscultation: rales bilateral Cardio regular rate and regular rhythm GI normal to inspection, nondistended, normoactive bowel sounds Extremity no clubbing, cyanosis or edema Skin no rashes or lesions noted Neuro oriented x3, CN's II-XII intact bilaterally and moves all extremities Psych cooperative and affect normal Charges/Coding Visit Charges Inpatient E&M: 49365 Subs Hosp L2 09/27/22 0754 <Electronically signed by Kamari Shi DO> Cosigner Signature (if applicable): CC: ~ Signed [facility] Work Phone: [phone] 332-756805-03-[address] Shi [facility] September 27, 2022 6:19am Note Date/Time September 26, 2022 8:14am [facility] Medical Records Department [address] [place] [address] Consultation - Executive Communications Manager 09/26/22 0807 MR#: [id number] Acct: [id number] Name: MAKENNA ANDRE Rep #:[id number] : 1955 66 From: Kamari Shi DO PCP: Dr. Hoda Del Rosario MD Status:ADM IN Location: [place] [address] Assessment & Plan Assessment/Plan (1) Acute respiratory failure with hypoxia: PLAN: Plan RECOMMENDATIONS: 1. Wean supplemental oxygen to maintain saturations at or above 90%. 2. Continue bronchodilator therapy. 3. Continue diuretics as tolerated by hemodynamics and renal function. 4. Anticipate home-going supplemental oxygen need. Perform walking oximetry study prior to discharge home. 5. Continue BiPAP therapy with naps and nightly. 6. Repeat chest x-ray, BNP and procalcitonin. 7. In light of pulmonary hypertension, will check ANCA, GERARDO with reflex, CCP antibodies and rheumatoid factor. 8. Recommend outpatient PFTs and polysomnogram. IMPRESSIONS: 1. Shortness of breath and hypoxemia The patient presented with lower extremity edema, shortness of breath and hypoxemia following total right hip arthroplasty 1 month ago. She has no pre-existing lung condition that she is aware of. However, arterial blood gas did demonstrate that the patient has chronic CO2 retention. Chest imaging demonstrated bilateral groundglass opacities, which could represent an inflammatory etiology versus edema. The patient remains on diuretics. Echocardiogram did reveal evidence of pulmonary hypertension. At this time, will obtain follow-up chest x-ray and recheck BNP and procalcitonin. The patient is afebrile without leukocytosis, making infection unlikely. In light of her pulmonary hypertension, we will send off an autoimmune and vasculitis panel. There is no evidence for PE identified on CT imaging on presentation. The patient likely has some underlying chronic lung disease, which will require further outpatient evaluation with PFTs. In the interim, it is reasonable to continue diuretics as tolerated by hemodynamics and renal function. I do anticipate that the patient will require home-going supplemental O2. The remainder of her secondary work-up for pulmonary hypertension can be completed on an outpatient basis. I would eventually recommend that she undergo a sleep study as well. 2. Hypothyroidism/hypertension Complicates care, management, recovery and prognosis. Continue home medicationsas indicated. This note was generated with [employer] dictation software. It may contain incorrectwords, spelling, and punctuation that were not noted in checking the note beforesigning. HPI Consult Data Date of Consult: 09/27/22 HPI Narrative Reason for Consultation: Hypoxemia HPI Narrative: The patient is a 66-year-old female, with a history as outlined below, who presented to the emergency department on September 21 with shortness of breath, lower extremity edema and fatigue. The patient apparently underwent a total right hip arthroplasty at the [facility] on August 21. Following this procedure, the patient developed progressively worsening dyspnea. The patient denied any pre-existing lung conditions or history of venous thromboembolic disease. She did not use supplemental oxygen at her baseline. She has a very remote smoking history, but denied ever having been diagnosed with COPD or asthma. On presentation to the emergency department, the patient was noted to be afebrile and hemodynamically stable. She was, however, tachycardic and tachypneic with a 4 L/min oxygen requirement. Initial laboratory evaluation revealed no evidence of a leukocytosis. Coagulation profile was unrevealing. Chemistry profile was notable for a potassium of 3.4. BNP was elevated at 463. Troponin was negative. CTA chest showed no evidence for pulmonary embolism. Anenlarged paratracheal lymph node was noted along with bilateral groundglass opacities. The patient was initially admitted to the hospital for concerns for decompensated heart failure. Surface echocardiogram completed on September 21 demonstrated normal LV size and function with an ejection fraction of 60%. The RV was noted to be mildly dilated with a pulmonary artery systolic pressure of 60 mmHg. The patient has been maintained on a p.o. Lasix regimen. She is currently documented to be overall net -3.6 L for the hospitalization. Respiratory viral panel was negative. Arterial blood gas obtained yesterday demonstrated a pH of 7.47 with a PCO2 of 79 and PO2 of 73. PFSH Medical History Cataract HTN (hypertension) Hypothyroid Home Medications acetaminophen 650 mg tablet,extended release 650 mg PO Q12H PAIN 09/21/22 [History Last Taken 09/21/22] aspirin 325 mg tablet 325 mg PO DAILY HEART HEALTH 09/21/22 [History Last Taken 09/21/22] levothyroxine 50 mcg tablet 50 mcg PO DAILY THYROID 09/21/22 [History Last Taken 09/21/22] lisinopril 10 mg-hydrochlorothiazide 12.5 mg tablet 1 tab PO QHS HTN 09/21/22 [History Last Taken 09/20/22] Allergy/AdvReac Type Severity Reaction Status Date / Time Penicillins Allergy Hives Verified 09/21/22 19:26 Family History no significant family his Surgical History History of right hip replacement Social History (Updated 09/21/22 @ 19:[address] Em Diamond DO) household members: spouse housing: house Smoking Status: Never smoker alcohol intake: never substance use type: does not use ROS ROS Narrative 10 systems reviewed with pertinent positives as noted in the HPI above. Physical Exam Const alert and no apparent distress General Appearance: cooperative HEENT normocephalic, head/scalp atraumatic and moist oral mucous membranes Eyes PERRL, EOMs intact bilaterally and conjunctivae normal Neck supple General: trachea midline Chest inspection of chest normal Resp normal respiratory effort Auscultation: rales bilateral Cardio regular rate and regular rhythm GI normal to inspection, nondistended, normoactive bowel sounds Extremity no clubbing, cyanosis or edema Skin no rashes or lesions noted Neuro oriented x3, CN's II-XII intact bilaterally and moves all extremities Psych cooperative and affect normal Lab / Micro Data Result Diagrams: 09/27/22 04:34 09/26/22 05:15 Labs: Laboratory Results - last 24 hr 09/25/22 11:18: Sodium 135 L, Potassium 3.2 L, Chloride 83 L, Carbon Dioxide > 45.0 H*, Anion Gap TNP, BUN 17, Creatinine 0.79, Estim Creat Clear Calc 41.76, Est GFR (MDRD) Af Amer 93, Est GFR (MDRD) Non-Af 77, BUN/Creatinine Ratio 21.4 H, Glucose 120 H, Calcium 10.1 09/26/22 05:15: WBC 7.4, RBC 4.93, Hgb 13.8, Hct 46.8, MCV 94.9, MCH 28.0, MCHC 29.5 L, RDW Std Deviation 57.6 H, RDW Coeff of [place] 16.6 H, Plt Count 301, MPV 9.0, Immature Gran % (Auto) 0.100, Neut % (Auto) 63.9, Lymph % (Auto) 20.2, Day% (Auto) 14.4 H, Eos % (Auto) 1.1, Baso % (Auto) 0.3, Absolute Neuts (auto) 4.8,Absolute Lymphs (auto) 1.50, Nucleated RBC % 0 09/26/22 05:15: Sodium 137, Potassium 3.2 L, Chloride 84 L, Carbon Dioxide > 45.0 H*, Anion Gap TNP, BUN 23 H, Creatinine 0.70, Estim Creat Clear Calc 41.76,Est GFR (MDRD) Af Amer 107, Est GFR (MDRD) Non-Af 88, BUN/Creatinine Ratio 32.7 H, Glucose 107 H, Calcium 9.6, Phosphorus 3.9, Magnesium 1.9 ABG Data ABG results: ABG 09/25/22 12:42 Specimen Type ART Sample Site L Radial pH 7.47 H Bicarbonate Actual 57.5 H Total CO2 > 50 Base Excess > 30 H O2 Saturation 94 L ABG pCO2 79.4 H* ABG pO2 73 L Delma Test Positive O2 Delivery Device Cannula Liter Flow 3.0 Crit Call To/Read Back Yes Charges/Coding Visit Charges Inpatient E&M: 65788 Init Hosp L3 09/27/22 0619 <Electronically signed by Kamari Shi DO> Cosigner Signature (if applicable): CC: Dr. Kamari Shi DO; Dr. Hoda Del Rosario MD; Dr. Em Diamond DO; Dr. Silvestre Suero DO~ Signed [facility] Work Phone: [phone]) [phone] Progress note Author [facility] September 26, 2022 10:45pm Note Date/Time September 26, 2022 10:45p m [facility] Medical Records Department [address] [place] [address] Progress Note - Hospitalist 09/26/222243 MR#: [id number] Acct: [id number] Name: MAKENNA ANDRE Rep #:[id number] : 1955 66 From: Niharika Ram MD PCP: Dr. Hoda Del Rosario MD Status:ADM IN Location: [place] [address] Hospitalist Note Patient very anxious with BIPAP, willing to wear with medication to assist, willdose with ativan 0.5 mg IV x 1. 09/26/222244 <Electronically signed by Niharika Ram MD> Cosigner Signature (if applicable): CC: ~ Signed [facility] Work Phone: 1(369) 272-959305-02-[address] Woo [facility] September 26, 2022 10:36am Note Date/Time September 26, 2022 7:26am [facility] Medical Records Department [address] [place] [address] Progress Note - Hospitalist 09/26/22725 MR#: [id number] Acct: [id number] Name: MAKENNA ANDRE Rep #:[id number] : 1955 66 From: Kory Woo MD PCP: Dr. Hoda Del Rosario MD Status:ADM IN Location: [id number] Reason for Visit Reason for Visit: Diagnoses Hypokalemia (09/21/22) Heart failure, unspecified (09/21/22) Acute respiratory failure with hypoxia (09/21/22) Tachycardia, unspecified (09/21/22) Tachypnea, not elsewhere classified (09/21/22) Hyperglycemia, unspecified (09/21/22) Other specified abnormal findings of blood chemistry (09/21/22) Abnormal findings on diagnostic imaging of other specified body structures (09/21/22) Subjective Subjective Seen has been weaned off BiPAP. Her overall level of sensorium markedly improved. Objective Data Objective Data Vital Signs: Vital Signs Temp Pulse Resp BP Pulse Ox O2 Del Method O2 Flow Rate 97.4 F L 109 H 20 H 127/52 H 95 Nasal Cannula 3 09/26/22 06:48 09/26/22 06:48 09/26/22 06:48 09/26/22 06:48 09/26/22 06:48 09/26/22 06:48 09/26/22 06:48 FiO2 35 09/26/22 02:01 Oxygen Flow Rate (L/min) [ 5 AMBULATING with Oxygen #3] Oxygen Flow Rate (L/min) [ 4 AMBULATING with Oxygen #2] Oxygen Flow Rate (L/min) [ 2 AMBULATING with Oxygen #1] Oxygen Flow Rate (L/min) [At 0 REST on Room Air] Oxygen Flow Rate (L/min) 3 Oxygen Delivery Method Nasal Cannula Weight: 69.4 kg Body Mass Index (BMI) 28.9 Intake & Output: Intake and Output for Last 24 Hours 09/24/22 09/25/22 09/26/22 23:59 23:59 23:59 Intake Total 840 / 960 780 / 1020 240 / 240 Output Total 1150 / 1150 800 / 800 Balance -310 / -190 -20 / 220 240 / 240 Lab / Micro Data Result Diagrams: 09/26/22 05:15 09/26/22 05:15 Labs: Laboratory Results - last 24 hr 09/25/22 06:20: Sodium 134 L, Potassium 2.9 L, Chloride 84 L, Carbon Dioxide > 45.0 H*, Anion Gap TNP, BUN 14, Creatinine 0.70, Estim Creat Clear Calc 41.76, Est GFR (MDRD) Af Amer 108, Est GFR (MDRD) Non-Af 89, BUN/Creatinine Ratio 20.1 H, Glucose 123 H, Calcium 10.1 09/25/22 11:18: Sodium 135 L, Potassium 3.2 L, Chloride 83 L, Carbon Dioxide > 45.0 H*, Anion Gap TNP, BUN 17, Creatinine 0.79, Estim Creat Clear Calc 41.76, Est GFR (MDRD) Af Amer 93, Est GFR (MDRD) Non-Af 77, BUN/Creatinine Ratio 21.4 H, Glucose 120 H, Calcium 10.1 09/26/22 05:15: WBC 7.4, RBC 4.93, Hgb 13.8, Hct 46.8, MCV 94.9, MCH 28.0, MCHC 29.5 L, RDW Std Deviation 57.6 H, RDW Coeff of [place] 16.6 H, Plt Count 301, MPV 9.0, Immature Gran % (Auto) 0.100, Neut % (Auto) 63.9, Lymph % (Auto) 20.2, Day% (Auto) 14.4 H, Eos % (Auto) 1.1, Baso % (Auto) 0.3, Absolute Neuts (auto) 4.8,Absolute Lymphs (auto) 1.50, Nucleated RBC % 0 09/26/22 05:15: Sodium 137, Potassium 3.2 L, Chloride 84 L, Carbon Dioxide > 45.0 H*, Anion Gap TNP, BUN 23 H, Creatinine 0.70, Estim Creat Clear Calc 41.76,Est GFR (MDRD) Af Amer 107, Est GFR (MDRD) Non-Af 88, BUN/Creatinine Ratio 32.7 H, Glucose 107 H, Calcium 9.6, Phosphorus 3.9, Magnesium 1.9 Micro: Microbiology 09/21/22 17:00 Blood Culture (Wb) - Anticubital Right Blood Culture - Preliminary No growth in 48 hours. 09/21/22 17:00 Blood Culture (Wb) - Anticubital Left Blood Culture - Preliminary No growth in 48 hours. 09/21/22 18:35 Urine, Clean Catch Urine Culture - Final Mixed Alf 09/21/22 22:00 Mucosa - Nasopharyngeal Respiratory Panel (PCR) - Final 09/21/22 17:03 Nasal Secretion SARS-CoV-2 & FLU Antigen (Rapid) - Final ABG Data ABG results: ABG 05/01/23 12:42 Specimen Type ART Sample Site L Radial pH 7.47 H Bicarbonate Actual 57.5 H Total CO2 > 50 Base Excess > 30 H O2 Saturation 94 L ABG pCO2 79.4 H* ABG pO2 73 L Delma Test Positive O2 Delivery Device Cannula Liter Flow 3.0 Crit Call To/Read Back Yes Physical Exam Narrative GENERAL: Cooperative HEENT: Atraumatic; normocephalic EYES; Anicteric, Normal Conjunctiva NECK; supple, normal thyroid, RESPIRATORY:, Diminished with occasional crackles CARDIOVASCULAR: Regular S1 S2, GI: soft, normoactive bowel sounds, : No Renal angle tenderness; EXTREMITIES: No edema, no clubbing, MUSCULOSKELETAL: no muscle wasting NEURO: Awake; no lateralizing signs. SKIN: No Rash PSYCH; flat affect Assessment & Plan Assessment/Plan (1) Acute decompensated heart failure: PLAN: Plan Patient is a 66-year-old lady admitted with shortness of breath and bilateral lower extremity swelling. An assessment of acute congestive heart failure with preserved ejection fraction made admitted to a monitored bed where patient is currently being managed 1. Acute hypoxic and hypercapnic respiratory failure ? Secondary to congestive heart failure necessitating the use of noninvasive ventilation BiPAP with oxygen which is currently being titrated to keep saturation greater than 90. ? 09/26/2022; patient has been weaned off BiPAP currently on nasal cannula 2. Acute metabolic encephalopathy ? Secondary to patient hypercapnia patient is on BiPAP to expect improvement with improvement in her CO2 levels ? 09/26/2022; patient level of sensorium markedly improved. Seen in consultation by Dr. Shi with pulmonary medicine notes and recommendations reviewed 3. Acute congestive heart failure with preserved ejection fraction ? Echo demonstrated EF of 60%. Patient managed with fluid restriction, daily weight, strict input and output low-sodium diet as well as IV diuretics 4. Hypokalemia ? Secondary to patient diuresis corrected per protocol repeat labs ordered for monitoring 5. Hypothyroidism - Patient is on levothyroxine home dose continued 6. Essential hypertension ? Patient is on lisinopril and HCTZ currently being held 7. Moderate pulmonary hypertension ? Patient is on Lasix as well as noninvasive ventilation with BiPAP 8. DVT prophylaxis - On enoxaparin Time spent in the patient's overall evaluation,decision-making process, review of diagnostic data, adjustment of management, discussion with other providers, nursing nursing and ancillary staff involved in patient's care documentation, 45 Minutes Charges/Coding Visit Charges Inpatient E&M: 16633 Subs Hosp L2 09/26/22 1036 <Electronically signed by Kory oWo MD> Cosigner Signature (if applicable): CC: ~ Signed [facility] Work Phone: 1(158) 757-758105-01-[address] Woo [facility] September 25, 2022 10:56am Note Date/Time September 25, 2022 8:40am [facility] Medical Records Department [address] [place] [address] Progress Note - Hospitalist 09/25/22 0838 MR#: [id number] Acct: [id number] Name: MAKENNA ANDRE Rep #:[id number] : 1955 66 From: Kory Woo MD PCP: Dr. Hoda Del Rosario MD Status:ADM IN Location: [place] [address] Reason for Visit Reason for Visit: Diagnoses Hypokalemia (09/21/22) Heart failure, unspecified (09/21/22) Acute respiratory failure with hypoxia (09/21/22) Tachycardia, unspecified (09/21/22) Tachypnea, not elsewhere classified (09/21/22) Hyperglycemia, unspecified (09/21/22) Other specified abnormal findings of blood chemistry (09/21/22) Abnormal findings on diagnostic imaging of other specified body structures (09/21/22) Subjective Subjective Patient is a 66-year-old lady admitted with shortness of breath and bilateral lower extremity swelling. An assessment of acute congestive heart failure with preserved ejection fraction made admitted to a monitored bed where patient is currently being managed Objective Data Objective Data Vital Signs: Vital Signs Temp Pulse Resp BP Pulse Ox O2 Del Method O2 Flow Rate 97.8 F 100 18 110/76 98 Trach Collar 3 09/25/22 06:00 09/25/22 07:08 09/25/22 07:08 09/25/22 06:00 09/25/22 07:08 09/25/22 06:23 09/25/22 01:38 FiO2 35 09/25/22 07:08 Oxygen Flow Rate (L/min) [ 5 AMBULATING with Oxygen #3] Oxygen Flow Rate (L/min) [ 4 AMBULATING with Oxygen #2] Oxygen Flow Rate (L/min) [ 2 AMBULATING with Oxygen #1] Oxygen Flow Rate (L/min) [At 0 REST on Room Air] Oxygen Flow Rate (L/min) 3 Oxygen Delivery Method Trach Collar Weight: 69.9 kg Body Mass Index (BMI) 29.1 Intake & Output: Intake and Output for Last 24 Hours 09/23/22 09/24/22 09/25/22 23:59 23:59 23:59 Intake Total 1080 / 1080 840 / 960 120 / 120 Output Total 2049 1150 / 1150 0 / 0 Balance -970 / -970 -310 / -190 120 / 120 Lab / Micro Data Result Diagrams: 09/22/22 05:40 09/25/22 06:20 Labs: Laboratory Results - last 24 hr 09/25/22 06:20: Sodium 134 L, Potassium 2.9 L, Chloride 84 L, Carbon Dioxide > 45.0 H*, Anion Gap TNP, BUN 14, Creatinine 0.70, Estim Creat Clear Calc 41.76, Est GFR (MDRD) Af Amer 108, Est GFR (MDRD) Non-Af 89, BUN/Creatinine Ratio 20.1 H, Glucose 123 H, Calcium 10.1 Micro: Microbiology 09/21/22 17:00 Blood Culture (Wb) - Anticubital Right Blood Culture - Preliminary No growth in 48 hours. 09/21/22 17:00 Blood Culture (Wb) - Anticubital Left Blood Culture - Preliminary No growth in 48 hours. 09/21/22 18:35 Urine, Clean Catch Urine Culture - Final Mixed Alf 09/21/22 22:00 Mucosa - Nasopharyngeal Respiratory Panel (PCR) - Final 09/21/22 17:03 Nasal Secretion SARS-CoV-2 & FLU Antigen (Rapid) - Final Radiography Diagnostic Testing: Radiology Impression Chest X-Ray 09/24/22 08:34 IMPRESSION: Decreasing airspace opacifications in both lung arita compared to the previous study. Follow-up recommended to ensure complete resolution Electronically Signed: Matthieu Gramajo MD at 14:12 EDT , Chest X-Ray 09/25/22 00:29 IMPRESSION: 1. Mildly worsened density of the heterogeneous ill-defined airspace disease involving multiple lobes of the right lung. 2. No other significant interval changes. Electronically Signed: Rob Cano MD at 1:06 EDT , Physical Exam Narrative GENERAL: Lethargic HEENT: Atraumatic; normocephalic EYES; Anicteric, Normal Conjunctiva NECK; supple, normal thyroid, RESPIRATORY:, Dyspneic at rest, tachypneic diminished to auscultation CARDIOVASCULAR: Regular S1 S2, GI: soft, normoactive bowel sounds, : No Renal angle tenderness; EXTREMITIES: No edema, no clubbing, MUSCULOSKELETAL: no muscle wasting NEURO: Awake; no lateralizing signs. SKIN: No Rash PSYCH; lethargic but arousable Assessment & Plan Assessment/Plan (1) Acute decompensated heart failure: PLAN: Plan Patient is a 66-year-old lady admitted with shortness of breath and bilateral lower extremity swelling. An assessment of acute congestive heart failure with preserved ejection fraction made admitted to a monitored bed where patient is currently being managed 1. Acute hypoxic and hypercapnic respiratory failure ? Secondary to congestive heart failure necessitating the use of noninvasive ventilation BiPAP with oxygen which is currently being titrated to keep saturation greater than 90. 2. Acute metabolic encephalopathy ? Secondary to patient hypercapnia patient is on BiPAP to expect improvement with improvement in her CO2 levels 3. Acute congestive heart failure with preserved ejection fraction ? Echo demonstrated EF of 60%. Patient managed with fluid restriction, daily weight, strict input and output low-sodium diet as well as IV diuretics 4. Hypokalemia ? Secondary to patient diuresis corrected per protocol repeat labs ordered for monitoring 5. Hypothyroidism - Patient is on levothyroxine home dose continued 6. Essential hypertension ? Patient is on lisinopril and HCTZ currently being held 7. Moderate pulmonary hypertension ? Patient is on Lasix as well as noninvasive ventilation with BiPAP 8. DVT prophylaxis - On enoxaparin Time spent in the patient's overall evaluation,decision-making process, review of diagnostic data, adjustment of management, discussion with other providers, nursing nursing and ancillary staff involved in patient's care documentation, 55 Minutes Charges/Coding Visit Charges Inpatient E&M: 59652 Subs Hosp L3 09/25/22 1056 <Electronically signed by Kory Woo MD> Cosigner Signature (if applicable): CC: ~ Signed [facility] Work Phone: 1([phone]) 121-906704-30-[address] Suero [facility] September 24, 2022 11:54am Note Date/Time September 24, 2022 11: 54am [facility] Medical Records Department [address] [place] [address] Progress Note - Hospitalist 09/24/22 1151 MR#: [id number] Acct: [id number] Name: MAKENNA ANDRE Rep #:[id number] : 1955 66 From: Silvestre Suero DO PCP: Dr. Hoda Del Rosario MD Status:ADM IN Location: [place] [address] Reason for Visit Reason for Visit: Diagnoses Hypokalemia (09/21/22) Heart failure, unspecified (09/21/22) Acute respiratory failure with hypoxia (09/21/22) Tachycardia, unspecified (09/21/22) Tachypnea, not elsewhere classified (09/21/22) Hyperglycemia, unspecified (09/21/22) Other specified abnormal findings of blood chemistry (09/21/22) Abnormal findings on diagnostic imaging of other specified body structures (09/21/22) Subjective Subjective Patient was seen and examined today, she is still diuresing on oral Lasix and Zaroxolyn. She however remains on supplemental oxygen at this time. I ordered a chest x-ray on the patient today and the results are pending at this time. I have decided to give the patient another dose of Zaroxolyn today and I discussedplacing her back on IV medication with the patient, she would prefer not to havean IV at this time and I agree that we can probably diurese her without reinserting the IV. Objective Data Objective Data Vital Signs: Vital Signs Temp Pulse Resp BP Pulse Ox O2 Del Method O2 Flow Rate 98.8 F 102 H 20 H 120/61 95 Nasal Cannula 3 09/24/22 08:31 09/24/22 08:31 09/24/22 10:00 09/24/22 08:31 09/24/22 08:31 09/24/22 10:00 09/24/22 10:00 Oxygen Flow Rate (L/min) [ 5 AMBULATING with Oxygen #3] Oxygen Flow Rate (L/min) [ 4 AMBULATING with Oxygen #2] Oxygen Flow Rate (L/min) [ 2 AMBULATING with Oxygen #1] Oxygen Flow Rate (L/min) [At 0 REST on Room Air] Oxygen Flow Rate (L/min) 3 Oxygen Delivery Method Nasal Cannula Weight: 74 kg Body Mass Index (BMI) 30.8 Intake & Output: Intake and Output for Last 24 Hours 09/22/22 09/23/22 09/24/22 23:59 23:59 23:59 Intake Total 560 / 560 1080 / 1080 120 / 120 Output Total 2200 / 2200 2049 / 2049 900 / 900 Balance -1640 / -1640 -970 / -970 -780 / -780 Lab / Micro Data Result Diagrams: 09/22/22 05:40 09/24/22 05:07 Labs: Laboratory Results - last 24 hr 09/24/22 05:07: Sodium 135 L, Potassium 3.0 L, Chloride 86 L, Carbon Dioxide 45.0 H, Anion Gap 4 L, BUN 12, Creatinine 0.49 L, Estim Creat Clear Calc 41.76, Est GFR (MDRD) Af Amer 161, Est GFR (MDRD) Non-Af 133, BUN/Creatinine Ratio 24.3H, Glucose 116 H, Calcium 9.5 Micro: Microbiology 09/21/22 17:00 Blood Culture (Wb) - Anticubital Right Blood Culture - Preliminary No growth in 48 hours. 09/21/22 17:00 Blood Culture (Wb) - Anticubital Left Blood Culture - Preliminary No growth in 48 hours. 09/21/22 18:35 Urine, Clean Catch Urine Culture - Final Mixed Alf 09/21/22 22:00 Mucosa - Nasopharyngeal Respiratory Panel (PCR) - Final 09/21/22 17:03 Nasal Secretion SARS-CoV-2 & FLU Antigen (Rapid) - Final Physical Exam Narrative alert, oriented x3, no apparent distress and healthy appearing General Appearance: cooperative, well kempt and well developed Orientation / Consciousness: awake, oriented to person, oriented to place and oriented to time HEENT normocephalic, head/scalp atraumatic and moist oral mucous membranes Eyes PERRL, EOMs intact bilaterally and conjunctivae normal Neck supple, no JVD, thyroid normal and no carotid bruits General: trachea midline Resp normal respiratory effort, no retractions and no use of accessory muscles Auscultation: rales bilateral lower; Negative for rhonchi or wheezes Cardio regular rate, regular rhythm, S1 normal heart sound, S2 normal heart sound, no murmurs, no rub and no gallops GI normal to inspection, nondistended, normoactive bowel sounds, soft to palpation,non-tender and non-distended Extremity Extremity Narrative: Generalized edema is noted in both feet Skin no rashes or lesions noted General Skin Exam: no breakdown Neuro oriented x3, CN's II-XII intact bilaterally, moves all extremities, no focal motor deficits and no sensory deficits noted Sensorium / Orientation: awake, alert, oriented to person, oriented to place andoriented to time Speech: speech normal Psych affect normal Assessment & Plan Assessment/Plan (1) Acute decompensated heart failure: PLAN: Plan 1. New onset acute diastolic congestive heart failure-patient remains on oral Lasix at this time, again I have decided not to place an IV and the patient and continue with oral diuresis, Zaroxolyn was given today. I have decided to give the patient an aerosol treatment to see if this improves her respiratory status. #2 moderate pulmonary hypertension-again patient will remain on Lasix #3 acute hypoxia secondary to #1-patient's pulse ox will be monitored, oxygen will be weaned if possible #4 hypothyroidism-patient is on Synthroid #5 essential hypertension-patient is on lisinopril hydrochlorothiazide, it is being held at this time due to the fact she is on IV Lasix, Total clinical time spent by myself addressing the patient's medical issues, reviewing all of her data, and collaborating with patient's care team: 36 minutes Charges/Coding Visit Charges Inpatient E&M: 43034 Subs Hosp L2 09/24/22 1154 <Electronically signed by Silvestre Suero DO> Cosigner Signature (if applicable): CC: ~ Signed [facility] Work Phone: [phone]) 682-736304-29-[address] Suero [facility] September 23, 2022 10:48am Note Date/Time September 23, 2022 10: 48am [facility] Medical Records Department [address] [place] [address] Progress Note - Hospitalist 09/23/22 1045 MR#: [id number] Acct: [id number] Name: MAKENNA ANDRE Rep #:[id number] : 1955 66 From: Silvestre Suero DO PCP: Dr. Hoda Del Rosario MD Status:ADM IN Location: [place] [address] Reason for Visit Reason for Visit: Diagnoses Hypokalemia (09/21/22) Heart failure, unspecified (09/21/22) Acute respiratory failure with hypoxia (09/21/22) Tachycardia, unspecified (09/21/22) Tachypnea, not elsewhere classified (09/21/22) Hyperglycemia, unspecified (09/21/22) Other specified abnormal findings of blood chemistry (09/21/22) Abnormal findings on diagnostic imaging of other specified body structures (09/21/22) Subjective Subjective Patient was seen and examined today, we lost IV access on the patient today, I do not think is necessary to try to get another IV and the patient, I have transitioned her diuretics to oral, she is still hypoxic requiring supplemental oxygen, I will reevaluate the patient tomorrow Objective Data Objective Data Vital Signs: Vital Signs Temp Pulse Resp BP Pulse Ox O2 Del Method O2 Flow Rate 97.8 F 115 H 18 137/87 H 82 Nasal Cannula 0 09/23/22 08:37 09/23/22 08:37 09/23/22 08:37 09/23/22 08:37 09/23/22 10:20 09/23/22 08:53 09/23/22 10:20 Oxygen Flow Rate (L/min) [ 5 AMBULATING with Oxygen #3] Oxygen Flow Rate (L/min) [ 4 AMBULATING with Oxygen #2] Oxygen Flow Rate (L/min) [ 2 AMBULATING with Oxygen #1] Oxygen Flow Rate (L/min) [At 0 REST on Room Air] Oxygen Flow Rate (L/min) 4 Oxygen Delivery Method Nasal Cannula Weight: 76.1 kg Body Mass Index (BMI) 31.6 Intake & Output: Intake and Output for Last 24 Hours 09/21/22 09/22/22 09/23/22 23:59 23:59 23:59 Intake Total 240 / 240 560 / 560 240 / 240 Output Total 1350 / 1350 2200 / 2200 550 / 550 Balance -1110 / -1110 -1640 / -1640 -310 / -310 Lab / Micro Data Result Diagrams: 09/22/22 05:40 09/23/22 07:15 Labs: Laboratory Results - last 24 hr 09/23/22 07:15: Sodium 139, Potassium 3.5, Chloride 97 L, Carbon Dioxide 42.0 H,Anion Gap 0 L, BUN 13, Creatinine 0.64, Estim Creat Clear Calc 41.76, Est GFR (MDRD) Af Amer 119, Est GFR (MDRD) Non-Af 99, BUN/Creatinine Ratio 20.3 H, Glucose 105, Calcium 9.6 Micro: Microbiology 09/21/22 18:35 Urine, Clean Catch Urine Culture - Final Mixed Alf 09/21/22 22:00 Mucosa - Nasopharyngeal Respiratory Panel (PCR) - Final 09/21/22 17:03 Nasal Secretion SARS-CoV-2 & FLU Antigen (Rapid) - Final Radiography Diagnostic Testing: Radiology Impression Echocardiogram 09/21/22 20:03 Interpretation Summary The estimated ejection fraction is 60 %. No evidence for diastolic dysfunction. Mildly dilated right ventricle. Mildly decreased right ventricular systolic function Ordering Physician: Em Diamond Referring Physician: HODA DEL ROSARIO Performed By: Xiomara Leon RCS Physical Exam Narrative alert, oriented x3, no apparent distress and healthy appearing General Appearance: cooperative, well kempt and well developed Orientation / Consciousness: awake, oriented to person, oriented to place and oriented to time HEENT normocephalic, head/scalp atraumatic and moist oral mucous membranes Eyes PERRL, EOMs intact bilaterally and conjunctivae normal Neck supple, no JVD, thyroid normal and no carotid bruits General: trachea midline Resp normal respiratory effort, no retractions and no use of accessory muscles Auscultation: rales bilateral lower; Negative for rhonchi or wheezes Cardio regular rate, regular rhythm, S1 normal heart sound, S2 normal heart sound, no murmurs, no rub and no gallops GI normal to inspection, nondistended, normoactive bowel sounds, soft to palpation,non-tender and non-distended Extremity Extremity Narrative: Generalized edema is noted in both feet-this is improved from yesterday Skin no rashes or lesions noted General Skin Exam: no breakdown Neuro oriented x3, CN's II-XII intact bilaterally, moves all extremities, no focal motor deficits and no sensory deficits noted Sensorium / Orientation: awake, alert, oriented to person, oriented to place andoriented to time Speech: speech normal Psych affect normal Assessment & Plan Assessment/Plan (1) Acute decompensated heart failure: PLAN: Plan 1. New onset acute diastolic congestive heart failure-patient will be placed onoral Lasix and was given 1 dose of Zaroxolyn today, BMP will be rechecked tomorrow #2 moderate pulmonary hypertension-again patient will remain on Lasix #3 acute hypoxia secondary to #1-patient's pulse ox will be monitored, oxygen will be weaned if possible #4 hypothyroidism-patient is on Synthroid #5 essential hypertension-patient is on lisinopril hydrochlorothiazide, it is being held at this time due to the fact she is on IV Lasix, Total clinical time spent by myself addressing the patient's medical issues, reviewing all of her data, and collaborating with patient's care team: 35 minutes Charges/Coding Visit Charges Inpatient E&M: 39771 Subs Hosp L2 09/23/22 1048 <Electronically signed by Silvestre Sureo DO> Cosigner Signature (if applicable): CC: ~ Signed [facility] Work Phone: 1(778) 622-339904-28-[address] Suero [facility] September 22, 2022 6:28pm Note Date/Time September 22, 2022 6:2 8pm [facility] Medical Records Department [address] [place] [address] Progress Note - Hospitalist 09/22/22 1822 MR#: [id number] Acct: [id number] Name: MAKENNA ANDRE Rep #:[id number] : 1955 66 From: Silvestre Suero DO PCP: Dr. Hoda Del Rosario MD Status:ADM IN Location: [place] [address] Reason for Visit Reason for Visit: Diagnoses Hypokalemia (09/21/22) Heart failure, unspecified (09/21/22) Acute respiratory failure with hypoxia (09/21/22) Tachycardia, unspecified (09/21/22) Tachypnea, not elsewhere classified (09/21/22) Hyperglycemia, unspecified (09/21/22) Other specified abnormal findings of blood chemistry (09/21/22) Abnormal findings on diagnostic imaging of other specified body structures (09/21/22) Subjective Subjective Patient was seen and examined today, she was admitted yesterday for congestive heart failure, echocardiogram today showed a normal EF with evidence of pulmonary hypertension which is moderate. Patient states she feels better today, she is still requiring supplemental oxygen however at 3 L. Objective Data Objective Data Vital Signs: Vital Signs Temp Pulse Resp BP Pulse Ox O2 Del Method O2 Flow Rate 98.0 F 105 H 14 138/70 H 90 Nasal Cannula 3 09/22/22 14:49 09/22/22 14:49 09/22/22 14:49 09/22/22 14:49 09/22/22 16:10 09/22/22 14:49 09/22/22 16:10 Oxygen Flow Rate (L/min) 3 Oxygen Delivery Method Nasal Cannula Weight: 77.6 kg Body Mass Index (BMI) 32.3 Intake & Output: Intake and Output for Last 24 Hours 09/20/22 09/21/22 09/22/22 23:59 23:59 23:59 Intake Total 240 / 240 320 / 320 Output Total 1350 / 1350 1750 / 1750 Balance -1110 / -1110 -1430 / -1430 Lab / Micro Data Result Diagrams: 09/22/22 05:40 09/22/22 05:40 Labs: Laboratory Results - last 24 hr 09/21/22 18:35: Urine Color Yellow, Urine Clarity Clear, Urine pH 6.0, Ur Specific [place] 1.015, Urine Protein 100 H, Urine Glucose (UA) Normal, Urine Ketones Negative, Urine Occult Blood 10 H, Urine Nitrite Negative, Urine Bilirubin Negative, Urine Urobilinogen 1 H, Ur Leukocyte Esterase 100 H, Urine RBC 0 SEEN, Urine WBC 0-5 SEEN, Ur Squamous Epith Cells 0-5 SEEN, Ur Renal Epithelial Cell 0-5 SEEN, Urine Bacteria 0 SEEN, Urine Mucus 0 SEEN 09/21/22 19:36: Hemoglobin A1c 5.4 09/21/22 20:58: Troponin I High Sens 37 09/21/22 20:58: Lactic Acid 3.0 H* 09/21/22 23:00: Troponin I High Sens 38 09/21/22 23:00: WBC 8.7, RBC 4.54, Hgb 13.0, Hct 43.9, MCV 96.7, MCH 28.6, MCHC 29.6 L, RDW Std Deviation 61.3 H, RDW Coeff of [place] 17.3 H, Plt Count 337, MPV 8.9, Immature Gran % (Auto) 0.900, Neut % (Auto) 62.3, Lymph % (Auto) 22.8, Day% (Auto) 10.9 H, Eos % (Auto) 2.8, Baso % (Auto) 0.3, Absolute Neuts (auto) 5.4,Absolute Lymphs (auto) 1.99, Nucleated RBC % 0.2 09/22/22 05:40: WBC 9.0, RBC 4.38, Hgb 12.5, Hct 42.4, MCV 96.8, MCH 28.5, MCHC 29.5 L, RDW Std Deviation 61.1 H, RDW Coeff of [place] 17.3 H, Plt Count 321, MPV 9.0, Immature Gran % (Auto) 0.300, Neut % (Auto) 65.3, Lymph % (Auto) 20.6, Day% (Auto) 9.6, Eos % (Auto) 3.8, Baso % (Auto) 0.4, Absolute Neuts (auto) 5.8, Absolute Lymphs (auto) 1.85, Nucleated RBC % 0 09/22/22 05:40: Sodium 141, Potassium 3.6, Chloride 105, Carbon Dioxide 34.0 H, Anion Gap 2 L, BUN 23 H, Creatinine 0.70, Estim Creat Clear Calc 41.76, Est GFR (MDRD) Af Amer 108, Est GFR (MDRD) Non-Af 89, BUN/Creatinine Ratio 33.0 H, Glucose 98, Calcium 9.0, Phosphorus 3.9, Magnesium 1.6, Total Bilirubin 0.60, AST12 L, ALT 23, Alkaline Phosphatase 87, Total Protein 6.6, Albumin 2.7 L, Globulin 3.9, Albumin/Globulin Ratio 0.7 L, Triglycerides 66, Cholesterol 77, LDL Cholesterol 39, VLDL Cholesterol 13, HDL Cholesterol 25 L, TSH 0.61 Micro: Microbiology 09/21/22 18:35 Urine, Clean Catch Urine Culture - Final Mixed Alf 09/21/22 22:00 Mucosa - Nasopharyngeal Respiratory Panel (PCR) - Final 09/21/22 17:03 Nasal Secretion SARS-CoV-2 & FLU Antigen (Rapid) - Final Radiography Diagnostic Testing: Radiology Impression Chest CTA 09/21/22 17:09 IMPRESSION: 1. No evidence of pulmonary embolus or aortic dissection. 2. Scattered areas of air trapping within the bilateral lung parenchyma with patchy areas of groundglass opacity within the right lung with underlying multifocal infiltrates versus alveolar edema present. 3. Questionable 2 cm lymph node overlies the right paratracheal region with the majority of opacity on recent plain film within the right hilar region caused by overlapping vascular structures. Recommend follow-up imaging in 4-[address] chest without contrast for confirmation. Electronically Signed: Gianni Hunter DO at 18:42 EDT , Echocardiogram 09/21/22 20:03 Interpretation Summary The estimated ejection fraction is 60 %. No evidence for diastolic dysfunction. Mildly dilated right ventricle. Mildly decreased right ventricular systolic function Ordering Physician: Em Diamond Referring Physician: HODA DEL ROSARIO Performed By: Widder, Xiomara, RCS Physical Exam Const alert, oriented x3, no apparent distress and healthy appearing General Appearance: cooperative, well kempt and well developed Orientation / Consciousness: awake, oriented to person, oriented to place and oriented to time HEENT normocephalic, head/scalp atraumatic and moist oral mucous membranes Eyes PERRL, EOMs intact bilaterally and conjunctivae normal Neck supple, no JVD, thyroid normal and no carotid bruits General: trachea midline Resp normal respiratory effort, no retractions and no use of accessory muscles Auscultation: rales bilateral lower; Negative for rhonchi or wheezes Cardio regular rate, regular rhythm, S1 normal heart sound, S2 normal heart sound, no murmurs, no rub and no gallops GI normal to inspection, nondistended, normoactive bowel sounds, soft to palpation,non-tender and non-distended Extremity Extremity Narrative: Generalized edema is noted in both feet Skin no rashes or lesions noted General Skin Exam: no breakdown Neuro oriented x3, CN's II-XII intact bilaterally, moves all extremities, no focal motor deficits and no sensory deficits noted Sensorium / Orientation: awake, alert, oriented to person, oriented to place andoriented to time Speech: speech normal Psych affect normal Assessment & Plan Assessment/Plan (1) Acute decompensated heart failure: PLAN: Plan 1. New onset acute diastolic congestive heart failure-patient will remain on IVLasix and potassium supplementation, BMP will be obtained tomorrow #2 moderate pulmonary hypertension-again patient will remain on Lasix #3 acute hypoxia secondary to #1-patient's pulse ox will be monitored, oxygen will be weaned if possible #4 hypothyroidism-patient is on Synthroid #5 essential hypertension-patient is on lisinopril hydrochlorothiazide, it is being held at this time due to the fact she is on IV Lasix, Total clinical time spent by myself addressing the patient's medical issues, reviewing all of her data, and collaborating with patient's care team: 35 minutes Charges/Coding Visit Charges Inpatient E&M: 08436 Subs Hosp L2 09/22/22 9018 <Electronically signed by Silvestre Suero DO> Cosigner Signature (if applicable): CC: ~ Signed [facility] Work Phone: 1(571) 218-110704-28-2023 Progress note Author Camden Guzman [facility] September 21, 2022 10:41pm Note Date/Time September 21, 2022 10: 41pm [facility] Medical Records Department [address] [place] [address] Progress Note 09/21/222239 MR#: [id number] Acct: [id number] Name: MAKENNA ANDRE Rep #:[id number] : 1955 66 From: Camden Guzman MD PCP: Dr. Hoda Del Rosario MD Status:ADM IN Location: [place] [address] Progress Note Notified of elevated lactic acid from 2 to 3. Chart reviewed. Like secondary to hypoxemia. No fever. Will check white count. 09/21/222240 <Electronically signed by Camedn Guzman MD> Camden Guzman MD Cosigner Signature (if applicable): CC: ~ Signed [facility] Work Phone: [phone] 904-742304-27-[address] Hall [facility] September 21, 2022 7:55pm Note Date/Time September 21, 2022 5:2 0pm [facility] Medical Records Department [address] [place] [address] Emergency Department Summary 09/21/22 MR#: [id number] Acct: [id number] Name: MAKENNA ANDRE Rep #:[id number] : 1955 66 From: Heri Hall DO PCP: Dr. Hoda Del Rosario MD Status:ADM IN Location: [place] [address] HPI History of Present Illness Chief Complaint: Shortness of Breath Narrative Narrative: 66-year-old female presenting with shortness of breath for last couple of weeks. Patient status post right total hip replacement 08/20/[address] Harmon at the [facility]. She does deny chest pain but does state that she is very dyspneic. Especially on exertion. She states that she can probably walk about 100 feet now. Before that she did not have any problems. Patient denies fever or chills. She does not have a significant cough. No history of CHF, COPD, CHF. Patient does know a lot of bilateral lower extremity edema. She was not sure why her left leg was so swollen like her right leg since he only had surgery on the right. Patient states she does not sleep flat and she does sleepsitting up and states she is normally a right side sleeper and since she had right hip surgery she was told not to sleep on her side. PFSH PFS Medical History Cataract HTN (hypertension) Hypothyroid Home Medications acetaminophen 650 mg tablet,extended release 650 mg PO Q12H PAIN 09/21/22 [History Last Taken 09/21/22] aspirin 325 mg tablet 325 mg PO DAILY HEART HEALTH 09/21/22 [History Last Taken 09/21/22] levothyroxine 50 mcg tablet 50 mcg PO DAILY THYROID 09/21/22 [History Last Taken 09/21/22] lisinopril 10 mg-hydrochlorothiazide 12.5 mg tablet 1 tab PO QHS HTN 09/21/22 [History Last Taken 09/20/22] Allergy/AdvReac Type Severity Reaction Status Date / Time Penicillins Allergy Hives Verified 09/21/22 19:26 Surgical History History of right hip replacement Social History (Updated 09/21/22 @ 19:[address] Em Diamond DO) household members: spouse housing: house Smoking Status: Never smoker alcohol intake: never substance use type: does not use ROS ROS ED Constitutional Constitutional ED: Denies chills or fever(s) Eyes Eyes: Denies change in vision or diplopia ENT ENT ED: Denies rhinorrhea or sore throat Cardiovascular Cardiovascular: Reports orthopnea; Denies chest pain Respiratory/Chest Respiratory/Chest: Reports dyspnea, dyspnea on exertion and orthopnea Gastrointestinal Gastrointestinal: Denies abdominal pain, nausea or vomiting Genitourinary Genitourinary ED: Denies dysuria or hematuria Musculoskeletal Musculoskeletal: Denies arthralgias Integumentary Denies abscess or Abrasions Neurologic Neurologic: Denies headache(s) or paresthesias Psychiatric Psychiatric: Denies anxiety or depression EXAM Physical Exam Const Vital Signs: 09/21/22 16:29 09/21/22 16:32 04/27/23 16:35 Temperature 97.7 F L 97.7 F L Temperature Source Oral Oral Pulse Rate 120 H 119 H Respiratory Rate 29 H 40 H Respiratory Effort Short of Breath Labored Respiratory Depth Shallow Respiratory Pattern Tachypnea Blood Pressure 150/60 H Blood Pressure Mean 90 Pulse Ox 69 96 Oxygen Delivery Method Room Air Nasal Cannula Oxygen Flow Rate (L/min) 4 09/21/22 16:47 09/21/22 17:50 09/21/22 17:50 Temperature 97.2 F L Temperature Source Temporal Pulse Rate 109 H 107 H Respiratory Rate 28 H 32 H Respiratory Effort Respiratory Depth Respiratory Pattern Blood Pressure 131/67 H 131/67 H Blood Pressure Mean 88 88 Pulse Ox 100 98 Oxygen Delivery Method Nasal Cannula Nasal Cannula Nasal Cannula Oxygen Flow Rate (L/min) 4 4 4 Positive well nourished General Appearance ED: NAD HEENT Reports moist mucous membranes Eyes PERRL and EOMs intact bilaterally Neck no lymphadenopathy and supple Resp normal respiratory effort Auscultation: rales bilateral throughout Cardio regular rhythm Rate: tachycardic GI non-tender Neuro oriented x3 and CN's II-XII intact bilaterally Sensorium / Orientation: alert Motor Exam: strength 5/5 throughout Psych mental status grossly normal Skin Skin Narrative: Bilateral lower extremity edema which symmetric MDM MDM MDM Narrative Medical decision making narrative: Patient presenting tachycardic, tachypneic, hypoxic. Sepsis work-up initiated. Patient reporting shortness of breath worsening over 2 to 3 weeks. No fevers. No chest pain. Differential includes but is not limited to ACS, CHF, pneumonia,pulmonary embolism. EKG was obtained and on my interpretation this is a sinus tachycardia with PACs. The rate is 112 bpm. MD interval 140 ms, QRS duration 48 ms. No STEMI. CBC shows no leukocytosis. Hemoglobin macular stable. Platelets are normal. Renal function is normal. Potassium slightly low at 3.4. Glucose 117 without anion gap. LFTs are unremarkable. BNP elevated at 463. High-sensitivity troponin is 38. Lactic acid 2.0 urinalysis was negative for infection. Chest x-ray on my interpretation appears consistent with CHF. Radiology interprets this is right perihilar fullness and concern for mass. I obtained a CTA of the chest which was negative for PE but the radiologist does interpret this as multifocal infiltrates versus CHF. I believe this is CHF. Asthe patient does not have a leukocytosis. She is not had a fever. He has not had chills or body aches to suggest infection. Patient given 40 mg of Lasix IV. Discussed with the hospitalist for admission. Impression: 1. CHF 2. Hypoxic respiratory failure Lab Data Attestation: I reviewed the patient's lab results. Labs: Laboratory Results - last 24 hr 09/21/22 09/21/22 09/21/22 16:30 16:30 16:30 WBC 10.0 RBC 4.77 Hgb 13.7 Hct 47.0 MCV 98.5 MCH 28.7 MCHC 29.1 L RDW Std Deviation 63.5 H RDW Coeff of [place] 17.6 H Plt Count 407 MPV 8.9 Immature Gran % (Auto) 0.300 Neut % (Auto) 76.9 H Lymph % (Auto) 12.7 L Day % (Auto) 9.1 Eos % (Auto) 0.6 Baso % (Auto) 0.4 Absolute Neuts (auto) 7.7 Absolute Lymphs (auto) 1.26 Nucleated RBC % 0.2 PT 14.6 INR 1.2 APTT 25.1 Sodium 139 Potassium 3.4 L Chloride 104 Carbon Dioxide 31.0 Anion Gap 4 L BUN 31 H Creatinine 0.87 Estim Creat Clear Calc 48.00 Est GFR (MDRD) Af Amer 84 Est GFR (MDRD) Non-Af 69 BUN/Creatinine Ratio 35.6 H Glucose 117 H Lactic Acid Calcium 9.8 Total Bilirubin 0.60 AST 14 L ALT 27 Alkaline Phosphatase 109 Troponin I High Sens 38 B-Natriuretic Peptide Total Protein 7.6 Albumin 3.1 L Globulin 4.5 H Albumin/Globulin Ratio 0.7 L Urine Color Urine Clarity Urine pH Ur Specific [place] Urine Protein Urine Glucose (UA) Urine Ketones Urine Occult Blood Urine Nitrite Urine Bilirubin Urine Urobilinogen Ur Leukocyte Esterase Urine RBC Urine WBC Ur Squamous Epith Cells Ur Renal Epithelial Cell Urine Bacteria Urine Mucus 09/21/22 09/21/22 09/21/22 16:30 17:00 18:35 WBC RBC Hgb Hct MCV MCH MCHC RDW Std Deviation RDW Coeff of [place] Plt Count MPV Immature Gran % (Auto) Neut % (Auto) Lymph % (Auto) Day % (Auto) Eos % (Auto) Baso % (Auto) Absolute Neuts (auto) Absolute Lymphs (auto) Nucleated RBC % PT INR APTT Sodium Potassium Chloride Carbon Dioxide Anion Gap BUN Creatinine Estim Creat Clear Calc Est GFR (MDRD) Af Amer Est GFR (MDRD) Non-Af BUN/Creatinine Ratio Glucose Lactic Acid 2.0 Calcium Total Bilirubin AST ALT Alkaline Phosphatase Troponin I High Sens B-Natriuretic Peptide 463.0 H Total Protein Albumin Globulin Albumin/Globulin Ratio Urine Color Yellow Urine Clarity Clear Urine pH 6.0 Ur Specific [place] 1.015 Urine Protein 100 H Urine Glucose (UA) Normal Urine Ketones Negative Urine Occult Blood 10 H Urine Nitrite Negative Urine Bilirubin Negative Urine Urobilinogen 1 H Ur Leukocyte Esterase 100 H Urine RBC 0 SEEN Urine WBC 0-5 SEEN Ur Squamous Epith Cells 0-5 SEEN Ur Renal Epithelial Cell 0-5 SEEN Urine Bacteria 0 SEEN Urine Mucus 0 SEEN Radiography Diagnostic Testing: Clinical Impression(s) from Imaging Studies Chest X-Ray 09/21/22 16:43 IMPRESSION: Right hilar fullness with paratracheal lymphadenopathy and mass not excluded, recommend cross-sectional CT imaging with contrast for definitive characterization. Electronically Signed: Gianni Hunter DO at 17:03 EDT , Chest CTA 09/21/22 17:09 IMPRESSION: 1. No evidence of pulmonary embolus or aortic dissection. 2. Scattered areas of air trapping within the bilateral lung parenchyma with patchy areas of groundglass opacity within the right lung with underlying multifocal infiltrates versus alveolar edema present. 3. Questionable 2 cm lymph node overlies the right paratracheal region with the majority of opacity on recent plain film within the right hilar region caused by overlapping vascular structures. Recommend follow-up imaging in 4-[address] chest without contrast for confirmation. Electronically Signed: Gianni Hunter DO at 18:42 EDT , Discharge Plan Disposition Disposition: Acute Care Hospital [facility] Discharge Date/Time: 09/21/22 19:46 What to do if you have Problems For any increased pain, shortness of breath, bleeding, nausea or vomiting, chestpain, or any unexpected problems, contact your Primary Care Provider. Call [facility] ([phone]) or report to the closest Emergency Room. Call 911 if necessary. 09/21/221954 <Electronically signed by Heri Hall DO> Cosigner Signature (if applicable): CC: Dr. Hoda Del Rosario MD ~ Signed [facility] Work Phone: [phone]) 474-291204-27-2023 History and physical note Author Dr. Diamond [facility] September 21, 2022 7:30pm Note Date/Time September 21, 2022 7:0 7pm [facility] Medical Records Department [address] [place] [address] H&P Exam - Hospitalist 09/21/22 1859 MR#: [id number] Acct: [id number] Name: MAKENNA ANDRE Rep #:[id number] : 1955 66 From: Em Diamond DO PCP: Dr. Hoda Del Rosario MD Status:ADM IN Location: [place] [id number] 1 HPI - General General Date of Admission: 09/21/22 Date of Service: 09/21/22 Chief Complaint: Shortness of Breath HPI Narrative MAKENNA ANDRE, is a 66 F who presented to the emergency department at [facility] on 09/21/2022 with shortness of breath. The patient had a total hip arthroplasty on the right side at [facility] done by Dr. Santos on 08/21/2022. The patient states she felt okay for couple days and then developed worsening shortness of breath that has slowly worsened over the past 3 weeks. She denied ever having any chest pain diaphoresis, nausea or vomiting. She states she has been significantly fatigued and sleeps a lot, noticing edema in her lower extremities that has progressively gotten worse bilaterally, and increasing shortness of breath. She states she went to physical therapy today and they sent her to her primary care physician's office who in turn sent her immediately to the emergency department. She has had no fever or chills, no coughing, no malaise or body aches, she denies any nausea, vomiting, diarrhea, constipation, melena, hematochezia, urinary symptoms, tingling, numbness, or newfocal deficit. Past medical history only includes hypertension and hypothyroidism. Vital signs on presentation showed a temperature of 97.7, heart rate 120, blood pressure 150/160, respiratory rate has been anywhere from 28-40, oxygen saturation was 69% on room air and improved to 96 to 100% on 4 L nasal cannula. Despite supplemental oxygen the patient may remain somewhat tachypneic however shows no sign of pending respiratory failure requiring intubation. Her CBC is overall unremarkable. She does have a mild left shift with a 76.9% neutrophilia. Coags were unremarkable. Chemistry panel shows mild hypokalemia with a potassium of 3.4 but is otherwise unremarkable. Glucose was 117. She isnot diabetic at baseline. Lactic acid was 2. Liver functions are normal. Troponin initially was 38. BNP was markedly elevated at 463.0. Chest x-ray showed right hilar fullness with paratracheal lymphadenopathy. CTA of the chestshowed no evidence of pulmonary embolus or aortic dissection, scattered areas ofair trapping within the bilateral lung parenchyma and patchy groundglass opacities in the right lung with underlying multifocal infiltrates versus alveolar edema and a questionable 2 cm lymph node overlying the right paratracheal region with recommended follow-up CT in 4 to 6 months. EKG shows inferior T wave inversions with normal intervals and no acute changes consistentwith acute ischemia. I unfortunately do not have a previous EKG for comparison. Her clinical exam and laboratory data is highly suspicious for acute decompensated heart failure. She has no previous heart history. She was given Lasix in the emergency department and request for admission was made. [facility] Medical History Cataract HTN (hypertension) Hypothyroid Home Medications acetaminophen 650 mg tablet,extended release 650 mg PO Q12H PAIN 09/21/22 [History Last Taken 09/21/22] aspirin 325 mg tablet 325 mg PO DAILY HEART HEALTH 09/21/22 [History Last Taken 09/21/22] levothyroxine 50 mcg tablet 50 mcg PO DAILY THYROID 09/21/22 [History Last Taken 09/21/22] lisinopril 10 mg-hydrochlorothiazide 12.5 mg tablet 1 tab PO QHS HTN 09/21/22 [History Last Taken 09/20/22] Allergy/AdvReac Type Severity Reaction Status Date / Time Penicillins Allergy Hives Verified 09/21/22 19:26 no significant family history Surgical History History of right hip replacement Social History (Updated 09/21/22 @ 19:[address] Em Diamond DO) household members: spouse housing: house Smoking Status: Never smoker alcohol intake: never substance use type: does not use ROS Constitutional Constitutional: Reports change in weight, fatigue and other Details: Decreased appetite ; Denies anorexia, chills, fever(s), malaise, night sweats or weakness Eyes Eyes: Denies blurry vision, change in eye color, change in vision, discharge from eye(s), double vision, erythema, eye pain, loss of vision or other ENT HEENT: Denies abnormal hearing, dysphagia, ear pain, epistaxis, headache(s), hearing loss, nasal congestion, nasal discharge, post nasal drip, sinus pressure, sore throat or other Cardiovascular Cardiovascular: Reports dyspnea on exertion and edema; Denies chest pain, claudication, lightheadedness, orthopnea, palpitations, paroxysmal nocturnal dyspnea, rapid heart rate, syncope or other Respiratory/Chest Respiratory/Chest: Reports dyspnea, shortness of breath at rest and shortness ofbreath with exertion; Denies cough, excessive phlegm production, hemoptysis, productive cough, wheezing or other Gastrointestinal Gastrointestinal: Denies abdominal pain, coffee ground emesis, constipation, diarrhea, dyspepsia, hematemesis, hematochezia, loose stools, melena, nausea, vomiting or other Genitourinary Genitourinary: Denies burning urination, difficulty urinating, dysuria, hematuria, nocturia, urinary frequency, urinary hesitancy, urinary incontinence,urinary urgency or other Musculoskeletal Musculoskeletal: Reports joint pain and joint stiffness; Denies arthralgias, back pain, joint swelling, myalgias, neck pain or other Neurologic Neurologic: Denies abnormal gait, abnormal speech, confusion, disequilibrium, dizziness, focal weakness, headache(s), numbness, paresthesias, seizure-like activity, seizures, syncope, tingling, tremor(s) or other Psychiatric Psychiatric: Denies anxiety, depression, homicidal ideation, suicidal ideation or other Endocrine Endocrinology: Denies change in body appearance, cold intolerance, excessive sweating, heat intolerance, polydipsia, polyuria or other Hematologic/Lymphatic Hematologic/Lymphatic: Denies anemia, easy bleeding, easy bruising, lymphadenopathy or other Allergic/Immunologic Allergic/Immunologic: Denies rhinitis, hives, eczemia, asthma or other Vital Signs Vital Signs Vital Signs: 09/21/22 16:29 09/21/22 16:32 09/21/22 16:35 Temperature 97.7 F L 97.7 F L Temperature Source Oral Oral Pulse Rate 120 H 119 H Respiratory Rate 29 H 40 H Respiratory Effort Short of Breath Labored Respiratory Depth Shallow Respiratory Pattern Tachypnea Blood Pressure 150/60 H Blood Pressure Mean 90 Pulse Ox 69 96 Oxygen Delivery Method Room Air Nasal Cannula Oxygen Flow Rate (L/min) 4 09/21/22 16:47 09/21/22 17:50 09/21/22 17:50 Temperature 97.2 F L Temperature Source Temporal Pulse Rate 109 H 107 H Respiratory Rate 28 H 32 H Respiratory Effort Respiratory Depth Respiratory Pattern Blood Pressure 131/67 H 131/67 H Blood Pressure Mean 88 88 Pulse Ox 100 98 Oxygen Delivery Method Nasal Cannula Nasal Cannula Nasal Cannula Oxygen Flow Rate (L/min) 4 4 4 Weight Weight: 80 kg Body Mass Index (BMI) 33.3 Physical Exam Const alert, oriented x3 and well nourished; Negative for no apparent distress Constitutional Narrative: Obese, very pleasant, upper middle-aged, white female, sitting up in bed, at bedside, patient is short of breath but no respiratory extremis at this time, does have dyspnea with conversation, nontoxic appearing General Appearance: cooperative HEENT normocephalic, head/scalp atraumatic, hearing grossly normal bilaterally and moist oral mucous membranes HEENT Narrative: Dentition is poor, Mallampati is 2, no thrush Eyes PERRL, EOMs intact bilaterally and conjunctivae normal Eyes Narrative: No scleral icterus Neck no lymphadenopathy, supple, No no JVD and no carotid bruits Neck Narrative: Positive JVD Resp No normal respiratory effort, no retractions, no use of accessory muscles and Noclear to auscultation bilaterally Resp Narrative: Bibasilar crackles in the inferior one third of the bilateral lung arita, tachypneic with significant conversational dyspnea Auscultation: rales; Negative for rhonchi or wheezes Cardio regular rhythm, S1 normal heart sound, S2 normal heart sound, no murmurs, no rub, no gallops and no clicks Cardio Narrative: Mildly tachycardic GI normal to inspection, nondistended, normoactive bowel sounds, soft to palpation and non-tender Extremity Extremity Narrative: 2+ pedal pulses, bilateral lower extremity 1+ pitting edema to the knees, no cyanosis Skin no rashes or lesions noted, No no wounds, skin turgor normal, no jaundice, no petechiae and no mottling Skin Narrative: Postoperative right hip incision appears clean and dry and healing well Neuro oriented x3, CN's II-XII intact bilaterally, moves all extremities and no focal motor deficits Neuro Narrative: Mild generalized weakness and significant fatigue Sensorium / Orientation: awake, alert, oriented to person, oriented to place andoriented to time Speech: speech normal Psych affect normal Psych Narrative: Pleasant, appropriately interactive Results Lab / Micro Data Attestation: I reviewed the patient's lab results. Result Diagrams: 09/21/22 16:30 09/21/22 16:30 Labs: Laboratory Results - last 24 hr 09/21/22 16:30: WBC 10.0, RBC 4.77, Hgb 13.7, Hct 47.0, MCV 98.5, MCH 28.7, MCHC29.1 L, RDW Std Deviation 63.5 H, RDW Coeff of [place] 17.6 H, Plt Count 407, MPV 8.9, Immature Gran % (Auto) 0.300, Neut % (Auto) 76.9 H, Lymph % (Auto) 12.7 L, Day % (Auto) 9.1, Eos % (Auto) 0.6, Baso % (Auto) 0.4, Absolute Neuts (auto) 7.7, Absolute Lymphs (auto) 1.26, Nucleated RBC % 0.2 09/21/22 16:30: PT 14.6, INR 1.2, APTT 25.1 09/21/22 16:30: Sodium 139, Potassium 3.4 L, Chloride 104, Carbon Dioxide 31.0, Anion Gap 4 L, BUN 31 H, Creatinine 0.87, Estim Creat Clear Calc 48.00, Est GFR (MDRD) Af Amer 84, Est GFR (MDRD) Non-Af 69, BUN/Creatinine Ratio 35.6 H, Glucose 117 H, Calcium 9.8, Total Bilirubin 0.60, AST 14 L, ALT 27, Alkaline Phosphatase 109, Troponin I High Sens 38, Total Protein 7.6, Albumin 3.1 L, Globulin 4.5 H, Albumin/Globulin Ratio 0.7 L 09/21/22 16:30: B-Natriuretic Peptide 463.0 H 09/21/22 17:00: Lactic Acid 2.0 09/21/22 18:35: Urine Color Yellow, Urine Clarity Clear, Urine pH 6.0, Ur Specific [place] 1.015, Urine Protein 100 H, Urine Glucose (UA) Normal, Urine Ketones Negative, Urine Occult Blood 10 H, Urine Nitrite Negative, Urine Bilirubin Negative, Urine Urobilinogen 1 H, Ur Leukocyte Esterase 100 H, Urine RBC 0 SEEN, Urine WBC 0-5 SEEN, Ur Squamous Epith Cells 0-5 SEEN, Ur Renal Epithelial Cell 0-5 SEEN, Urine Bacteria 0 SEEN, Urine Mucus 0 SEEN Micro: Microbiology 09/21/22 17:03 Nasal Secretion SARS-CoV-2 & FLU Antigen (Rapid) - Final Radiology Impression Chest X-Ray 09/21/22 16:43 IMPRESSION: Right hilar fullness with paratracheal lymphadenopathy and mass not excluded, recommend cross-sectional CT imaging with contrast for definitive characterization. Electronically Signed: Gianni Hunter DO at 17:03 EDT , Chest CTA 09/21/22 17:09 IMPRESSION: 1. No evidence of pulmonary embolus or aortic dissection. 2. Scattered areas of air trapping within the bilateral lung parenchyma with patchy areas of groundglass opacity within the right lung with underlying multifocal infiltrates versus alveolar edema present. 3. Questionable 2 cm lymph node overlies the right paratracheal region with the majority of opacity on recent plain film within the right hilar region caused by overlapping vascular structures. Recommend follow-up imaging in 4-[address] chest without contrast for confirmation. Electronically Signed: Gianni Hunter DO at 18:42 EDT , Assessment & Plan Assessment/Plan (1) Acute respiratory failure with hypoxia: (2) Elevated brain natriuretic peptide (BNP) level: (3) Acute decompensated heart failure: (4) Hyperglycemia: (5) Hypokalemia: (6) Tachycardia: (7) Tachypnea: (8) Abnormal CT scan, chest: PLAN: Plan Acute hypoxic respiratory failure secondary to acute decompensated heart failureof unknown type -Patient does not wear oxygen at baseline -Recent surgery CTA was performed and ruled out PE -CT demonstrates bilateral patchy infiltrates that appear to be consistent with heart failure -Check echocardiogram -Cycle cardiac enzymes -Lasix IV push twice daily -Daily weights -Fluid restriction -Sodium restricted diet -Check TSH -Currently requiring 4 L nasal cannula maintain oxygen saturation--> wean as able Elevated BNP -Secondary to acute decompensated heart failure -Treatment as above Hypokalemia -Potassium replacement with 40 mill equivalents p.o. potassium -Repeat BMP in a.m. -Check a.m. magnesium level Abnormal CT -2 cm lymph node overlying the right peritracheal region in the right hilar areawith recommended follow-up in 4 to [address] Recent right total hip arthroplasty -Performed by Dr. Santos at [facility] on 08/20/2022 -CTA negative for PE -PT/OT -Ongoing outpatient follow-up after discharge Hypothyroidism -Continue home Synthroid once dose is clarified -check TSH Hypertension -Patient takes lisinopril 10/HCTZ 25 daily -Hold HCTZ while on diuretics -Continue lisinopril 10 mg daily -Would likely benefit from a beta-jordy however with acute heart failure will not start at this time and wait until she has a little more compensated with regards to her heart failure Obesity -BMI 33.3 -Complicates treatment, prognosis, outcomes -Recommend weight loss DVT prophylaxis -Lovenox daily CODE STATUS -Full code Charges/Coding Visit Charges Inpatient E&M: 37890 Init Hosp L3 09/21/220 <Electronically signed by Em Diamond DO> Cosigner Signature (if applicable): CC: Dr. Hoda Del Rosario MD; Dr. Em Diamond DO~ Signed [facility] Work Phone: Evaluation noteNo assessment information available [facility] Work Phone: Evaluation note* Diagnosis Onset Date Resolution Status Abnormal CT scan, chest acut e Acute decompensated heart failure acute Acute respiratory failure with hypoxia acute Elevated brain natriuretic peptide (BNP) level acute Hyperglycemia acute Hypokalemia acute Tachycardia acute Tachypnea acute [facility] Work Phone: Evaluation note* Diagnosis Onset Date Resolution Status Abnormal CT scan, chest acut e Acute decompensated heart failure resolved Acute respiratory failure with hypoxia resolved Elevated brain natriuretic peptide (BNP) level resolved Hyperglycemia resolved Hypokalemia resolved Tachycardia resolved Tachypnea resolved [facility] Work Phone: Evaluation note* Diagnosis Onset Date Resolution Status Abnormal CT scan, chest acut e Acute decompensated heart failure resolved Acute respiratory failure with hypoxia resolved Elevated brain natriuretic peptide (BNP) level resolved Hyperglycemia resolved Hypokalemia resolved Tachycardia resolved Tachypnea resolved Acute on chronic respiratory failure with hypoxia and hypercapnia [facility] Work Phone: Evaluation note* Diagnosis Onset Date Resolution Status Abnormal CT scan, chest acut e Acute decompensated heart failure resolved Acute respiratory failure with hypoxia resolved Elevated brain natriuretic peptide (BNP) level resolved Hyperglycemia resolved Hypokalemia resolved Tachycardia resolved Tachypnea resolved Acute on chronic respiratory failure with hypoxia and hypercapnia resolved Positive colorectal cancer s creening using Cologuard test acute Abnormal CT scan, chest acut e CHF (congestive heart failure) chronic Chronic respiratory failure with hypoxia [facility] Work Phone: Evaluation note* Diagnosis Onset Date Resolution Status Abnormal CT scan, chest acut e Acute decompensated heart failure resolved Acute respiratory failure with hypoxia resolved Elevated brain natriuretic peptide (BNP) level resolved Hyperglycemia resolved Hypokalemia resolved Tachycardia resolved Tachypnea resolved Acute on chronic respiratory failure with hypoxia and hypercapnia resolved Positive colorectal cancer s creening using Cologuard test acute Abnormal CT scan, chest acut e CHF (congestive heart failure) chronic Chronic respiratory failure with hypoxia chronic Daytime hypersomnia acute Pulmonary hypertension acute Chronic respiratory failure with hypoxia [facility] Work Phone: Evaluation note* Diagnosis Onset Date Resolution Status CHF (congestive heart failure) chronic Chronic respiratory failure with hypoxia chronic Daytime hypersomnia acute Chronic respiratory failure with hypoxia chronic Pulmonary hypertension chron ic Chronic respiratory failure with hypoxia chronic 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 Dyspnea on exertion chronic Essential (primary) hypertension chronic Pulmonary hypertension chron ic Restrictive lung disease [facility] Work Phone: Evaluation note* Diagnosis Onset Date Resolution Status Daytime hypersomnia acute Chronic respiratory failure with hypoxia chronic Pulmonary hypertension chron ic Chronic respiratory failure with hypoxia chronic 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 Dyspnea on exertion chronic Essential (primary) hypertension chronic Pulmonary hypertension chron ic Restrictive lung disease [facility] Work Phone: Evaluation note* Diagnosis Onset Date Resolution Status Chronic respiratory failure with hypoxia chronic 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 Dyspnea on exertion chronic Essential (primary) hypertension chronic Pulmonary hypertension chron ic Restrictive lung disease [facility] CHRIS and COPD overlap syndrome acute Chronic respiratory failure with hypoxia chronic Pulmonary hypertension chron ic Restrictive lung disease [facility] Chronic respiratory failure with hypoxia chronic 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 Coronary artery disease [employer]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 Dyspnea on exertion chronic Essential (primary) hypertension chronic Pulmonary hypertension chron ic Restrictive lung disease [facility] Work Phone: Evaluation note* Diagnosis Onset Date Resolution Status CHRIS and COPD overlap syndrome acute Chronic respiratory failure with hypoxia chronic Pulmonary hypertension chron ic Restrictive lung disease [facility] Chronic respiratory failure with hypoxia chronic 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 Coronary artery disease [employer]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 Dyspnea on exertion chronic Essential (primary) hypertension chronic Pulmonary hypertension chron ic Restrictive lung disease [facility] Work Phone: Evaluation note* Diagnosis Pulmonary HTN (HCC)- Primary Other chronic [facility]monary HTN (HCC)- Primary Other chronic pulmonary heart diseases Pulmonary HTN (HCC) Other chronic pulmonary heart diseases [facility] Pulmonary HTN (HCC)- Primary Other chronic pulmonary [facility] diseases [facility] Pul[facility] HTN (HCC)- Primary Other chronic pulmonary heart diseases ILD (interstitial lung disease) (HCC) Postinflammatory pulmonary fibrosis Primary generalized (osteo)arthritis Generalized osteoarthrosis, involving multiple sites [facility] Pulmonary hypertension, unspecified (HCC)- Primary [facility] Diagnosis Pulmonary hypertension, unspecified (HCC)- Primary Essential hypertension, benign Chronic respiratory failure with hypoxia (HCC) Chronic respiratory failure [facility] Diagnosis Pulmonary hypertension, unspecified (HCC)- Primary Essential hypertension, benign Chronic respiratory failure with hypoxia (HCC) Chronic respiratory failure [facility] Pulmonary HTN (HCC) Other chronic pulmonary heart diseases ILD (interstitial lung disease) (HCC) Postinflammatory pulmonary fibrosis [facility] Diagnosis ILD (interstitial lung disease) (HCC) Postinflammatory pulmonary fibrosis [facility] Diagnosis Pulmonary HTN (HCC)- Primary Other chronic pulmonary heart diseases ILD (interstitial lung disease) (HCC) Postinflammatory pulmonary fibrosis Chronic hypoxemic respiratory failure (HCC) Chronic respiratory failure Chronic obstructive pulmonary disease, unspecified COPD type (HCC) CHRIS (obstructive sleep apnea) Obstructive sleep apnea (adult) (pediatric) [facility] Diagnosis ILD (interstitial lung disease) (HCC) Postinflammatory pulmonary fibrosis [facility] Diagnosis Chronic hypoxemic respiratory failure (HCC)- Primary Chronic respiratory failure [facility] Diagnosis Difficulty using continuous positive airway pressure (CPAP) nasal mask- Primary CHRIS treated with BiPAP PAH (pulmonary artery hypertension) (HCC) Other chronic pulmonary heart diseases ILD (interstitial lung disease) (HCC) Postinflammatory pulmonary fibrosis Chronic hypoxemic respiratory failure (HCC) Chronic respiratory failure [facility] Diagnosis Pulmonary hypertension, unspecified (HCC)- Primary Essential hypertension, benign Chronic respiratory failure with hypoxia (HCC) Chronic respiratory failure Medication management Encounter for long-term (current) use of other medications [facility] Diagnosis Pulmonary HTN (HCC) Other chronic pulmonary heart diseases [facility] Diagnosis ILD (interstitial lung disease) (HCC) Postinflammatory pulmonary fibrosis [facility] Diagnosis Interstitial pulmonary disease (HCC)- Primary Postinflammatory pulmonary fibrosis High risk medication use Encounter for long-term (current) use of other medications Pulmonary hypertension (HCC) Other chronic pulmonary heart diseases Chronic hypoxemic respiratory failure (HCC) Chronic respiratory failure [facility] Diagnosis ILD (interstitial lung disease) (HCC)- Primary Postinflammatory pulmonary fibrosis Pulmonary hypertension (HCC) Other chronic pulmonary heart diseases High risk medication use Encounter for long-term (current) use of other medications Chronic hypoxemic respiratory failure (HCC) Chronic respiratory failure Congestive heart failure, unspecified HF chronicity, unspecified heart failure type (HCC) [facility] Diagnosis Chronic diastolic heart failure (HCC)- Primary Chronic diastolic heart failure Hypervolemia, unspecified hypervolemia type Pulmonary hypertension, unspecified (HCC) Chronic respiratory failure with hypoxia (HCC) Chronic respiratory failure [facility] Diagnosis ILD (interstitial lung disease) (HCC)- Primary Postinflammatory pulmonary fibrosis [facility] Diagnosis Acute respiratory failure with hypoxia (HCC)- Primary Acute respiratory failure [facility] Diagnosis Pulmonary hypertension, unspecified (HCC)- Primary Chronic respiratory failure with hypoxia (HCC) Chronic respiratory failure [facility] Diagnosis Pulmonary hypertension, unspecified (HCC)- Primary Interstitial lung disease (HCC) Postinflammatory pulmonary fibrosis Chronic hypoxic respiratory failure, on home oxygen therapy (HCC) [facility] Author [facility]. Diamond [facility] September 21, 2022 7:30pm Note Date/Time September 21, 2022 7:0 7pm [facility] Medical Records Department [address] [place] [id number] H&P Exam - Hospitalist 09/21/22 1859 MR#: [id number] Acct: [id number] Name: MAKENNA ANDRE Rep #:[id number] : 1955 66 From: Em Diamond DO PCP: Dr. Hoda Del Rosario MD Status:ADM IN Location: [place] [address] HPI - General General Date of Admission: 09/21/22 Date of Service: 09/21/22 Chief Complaint: Shortness of Breath HPI Narrative MAKENNA ANDRE, is a 66 F who presented to the emergency department at [facility] on 09/21/2022 with shortness of breath. The patient had a total hip arthroplasty on the right side at [facility] done by Dr. Santos on 08/21/2022. The patient states she felt okay for couple days and then developed worsening shortness of breath that has slowly worsened over the past 3 weeks. She denied ever having any chest pain diaphoresis, nausea or vomiting. She states she has been significantly fatigued and sleeps a lot, noticing edema in her lower extremities that has progressively gotten worse bilaterally, and increasing shortness of breath. She states she went to physical therapy today and they sent her to her primary care physician's office who in turn sent her immediately to the emergency department. She has had no fever or chills, no coughing, no malaise or body aches, she denies any nausea, vomiting, diarrhea, constipation, melena, hematochezia, urinary symptoms, tingling, numbness, or newfocal deficit. Past medical history only includes hypertension and hypothyroidism. Vital signs on presentation showed a temperature of 97.7, heart rate 120, blood pressure 150/160, respiratory rate has been anywhere from 28-40, oxygen saturation was 69% on room air and improved to 96 to 100% on 4 L nasal cannula. Despite supplemental oxygen the patient may remain somewhat tachypneic however shows no sign of pending respiratory failure requiring intubation. Her CBC is overall unremarkable. She does have a mild left shift with a 76.9% neutrophilia. Coags were unremarkable. Chemistry panel shows mild hypokalemia with a potassium of 3.4 but is otherwise unremarkable. Glucose was 117. She isnot diabetic at baseline. Lactic acid was 2. Liver functions are normal. Troponin initially was 38. BNP was markedly elevated at 463.0. Chest x-ray showed right hilar fullness with paratracheal lymphadenopathy. CTA of the chestshowed no evidence of pulmonary embolus or aortic dissection, scattered areas ofair trapping within the bilateral lung parenchyma and patchy groundglass opacities in the right lung with underlying multifocal infiltrates versus alveolar edema and a questionable 2 cm lymph node overlying the right paratracheal region with recommended follow-up CT in 4 to 6 months. EKG shows inferior T wave inversions with normal intervals and no acute changes consistentwith acute ischemia. I unfortunately do not have a previous EKG for comparison. Her clinical exam and laboratory data is highly suspicious for acute decompensated heart failure. She has no previous heart history. She was given Lasix in the emergency department and request for admission was made. [facility] Medical History Cataract HTN (hypertension) Hypothyroid Home Medications acetaminophen 650 mg tablet,extended release 650 mg PO Q12H PAIN 09/21/22 [History Last Taken 09/21/22] aspirin 325 mg tablet 325 mg PO DAILY HEART HEALTH 09/21/22 [History Last Taken 09/21/22] levothyroxine 50 mcg tablet 50 mcg PO DAILY THYROID 09/21/22 [History Last Taken 09/21/22] lisinopril 10 mg-hydrochlorothiazide 12.5 mg tablet 1 tab PO QHS HTN 09/21/22 [History Last Taken 09/20/22] Allergy/AdvReac Type Severity Reaction Status Date / Time Penicillins Allergy Hives Verified 09/21/22 19:26 no significant family history Surgical History History of right hip replacement Social History (Updated 09/21/22 @ 19:[address] Em Diamond DO) household members: spouse housing: house Smoking Status: Never smoker alcohol intake: never substance use type: does not use ROS Constitutional Constitutional: Reports change in weight, fatigue and other Details: Decreased appetite ; Denies anorexia, chills, fever(s), malaise, night sweats or weakness Eyes Eyes: Denies blurry vision, change in eye color, change in vision, discharge from eye(s), double vision, erythema, eye pain, loss of vision or other ENT HEENT: Denies abnormal hearing, dysphagia, ear pain, epistaxis, headache(s), hearing loss, nasal congestion, nasal discharge, post nasal drip, sinus pressure, sore throat or other Cardiovascular Cardiovascular: Reports dyspnea on exertion and edema; Denies chest pain, claudication, lightheadedness, orthopnea, palpitations, paroxysmal nocturnal dyspnea, rapid heart rate, syncope or other Respiratory/Chest Respiratory/Chest: Reports dyspnea, shortness of breath at rest and shortness ofbreath with exertion; Denies cough, excessive phlegm production, hemoptysis, productive cough, wheezing or other Gastrointestinal Gastrointestinal: Denies abdominal pain, coffee ground emesis, constipation, diarrhea, dyspepsia, hematemesis, hematochezia, loose stools, melena, nausea, vomiting or other Genitourinary Genitourinary: Denies burning urination, difficulty urinating, dysuria, hematuria, nocturia, urinary frequency, urinary hesitancy, urinary incontinence,urinary urgency or other Musculoskeletal Musculoskeletal: Reports joint pain and joint stiffness; Denies arthralgias, back pain, joint swelling, myalgias, neck pain or other Neurologic Neurologic: Denies abnormal gait, abnormal speech, confusion, disequilibrium, dizziness, focal weakness, headache(s), numbness, paresthesias, seizure-like activity, seizures, syncope, tingling, tremor(s) or other Psychiatric Psychiatric: Denies anxiety, depression, homicidal ideation, suicidal ideation or other Endocrine Endocrinology: Denies change in body appearance, cold intolerance, excessive sweating, heat intolerance, polydipsia, polyuria or other Hematologic/Lymphatic Hematologic/Lymphatic: Denies anemia, easy bleeding, easy bruising, lymphadenopathy or other Allergic/Immunologic Allergic/Immunologic: Denies rhinitis, hives, eczemia, asthma or other Vital Signs Vital Signs Vital Signs: 09/21/22 16:29 09/21/22 16:32 09/21/22 16:35 Temperature 97.7 F L 97.7 F L Temperature Source Oral Oral Pulse Rate 120 H 119 H Respiratory Rate 29 H 40 H Respiratory Effort Short of Breath Labored Respiratory Depth Shallow Respiratory Pattern Tachypnea Blood Pressure 150/60 H Blood Pressure Mean 90 Pulse Ox 69 96 Oxygen Delivery Method Room Air Nasal Cannula Oxygen Flow Rate (L/min) 4 09/21/22 16:47 09/21/22 17:50 09/21/22 17:50 Temperature 97.2 F L Temperature Source Temporal Pulse Rate 109 H 107 H Respiratory Rate 28 H 32 H Respiratory Effort Respiratory Depth Respiratory Pattern Blood Pressure 131/67 H 131/67 H Blood Pressure Mean 88 88 Pulse Ox 100 98 Oxygen Delivery Method Nasal Cannula Nasal Cannula Nasal Cannula Oxygen Flow Rate (L/min) 4 4 4 Weight Weight: 80 kg Body Mass Index (BMI) 33.3 Physical Exam Const alert, oriented x3 and well nourished; Negative for no apparent distress Constitutional Narrative: Obese, very pleasant, upper middle-aged, white female, sitting up in bed, at bedside, patient is short of breath but no respiratory extremis at this time, does have dyspnea with conversation, nontoxic appearing General Appearance: cooperative HEENT normocephalic, head/scalp atraumatic, hearing grossly normal bilaterally and moist oral mucous membranes HEENT Narrative: Dentition is poor, Mallampati is 2, no thrush Eyes PERRL, EOMs intact bilaterally and conjunctivae normal Eyes Narrative: No scleral icterus Neck no lymphadenopathy, supple, No no JVD and no carotid bruits Neck Narrative: Positive JVD Resp No normal respiratory effort, no retractions, no use of accessory muscles and Noclear to auscultation bilaterally Resp Narrative: Bibasilar crackles in the inferior one third of the bilateral lung arita, tachypneic with significant conversational dyspnea Auscultation: rales; Negative for rhonchi or wheezes Cardio regular rhythm, S1 normal heart sound, S2 normal heart sound, no murmurs, no rub, no gallops and no clicks Cardio Narrative: Mildly tachycardic GI normal to inspection, nondistended, normoactive bowel sounds, soft to palpation and non-tender Extremity Extremity Narrative: 2+ pedal pulses, bilateral lower extremity 1+ pitting edema to the knees, no cyanosis Skin no rashes or lesions noted, No no wounds, skin turgor normal, no jaundice, no petechiae and no mottling Skin Narrative: Postoperative right hip incision appears clean and dry and healing well Neuro oriented x3, CN's II-XII intact bilaterally, moves all extremities and no focal motor deficits Neuro Narrative: Mild generalized weakness and significant fatigue Sensorium / Orientation: awake, alert, oriented to person, oriented to place andoriented to time Speech: speech normal Psych affect normal Psych Narrative: Pleasant, appropriately interactive Results Lab / Micro Data Attestation: I reviewed the patient's lab results. Result Diagrams: 09/21/22 16:30 09/21/22 16:30 Labs: Laboratory Results - last 24 hr 09/21/22 16:30: WBC 10.0, RBC 4.77, Hgb 13.7, Hct 47.0, MCV 98.5, MCH 28.7, MCHC29.1 L, RDW Std Deviation 63.5 H, RDW Coeff of [place] 17.6 H, Plt Count 407, MPV 8.9, Immature Gran % (Auto) 0.300, Neut % (Auto) 76.9 H, Lymph % (Auto) 12.7 L, Day % (Auto) 9.1, Eos % (Auto) 0.6, Baso % (Auto) 0.4, Absolute Neuts (auto) 7.7, Absolute Lymphs (auto) 1.26, Nucleated RBC % 0.2 09/21/22 16:30: PT 14.6, INR 1.2, APTT 25.1 09/21/22 16:30: Sodium 139, Potassium 3.4 L, Chloride 104, Carbon Dioxide 31.0, Anion Gap 4 L, BUN 31 H, Creatinine 0.87, Estim Creat Clear Calc 48.00, Est GFR (MDRD) Af Amer 84, Est GFR (MDRD) Non-Af 69, BUN/Creatinine Ratio 35.6 H, Glucose 117 H, Calcium 9.8, Total Bilirubin 0.60, AST 14 L, ALT 27, Alkaline Phosphatase 109, Troponin I High Sens 38, Total Protein 7.6, Albumin 3.1 L, Globulin 4.5 H, Albumin/Globulin Ratio 0.7 L 09/21/22 16:30: B-Natriuretic Peptide 463.0 H 09/21/22 17:00: Lactic Acid 2.0 09/21/22 18:35: Urine Color Yellow, Urine Clarity Clear, Urine pH 6.0, Ur Specific [place] 1.015, Urine Protein 100 H, Urine Glucose (UA) Normal, Urine Ketones Negative, Urine Occult Blood 10 H, Urine Nitrite Negative, Urine Bilirubin Negative, Urine Urobilinogen 1 H, Ur Leukocyte Esterase 100 H, Urine RBC 0 SEEN, Urine WBC 0-5 SEEN, Ur Squamous Epith Cells 0-5 SEEN, Ur Renal Epithelial Cell 0-5 SEEN, Urine Bacteria 0 SEEN, Urine Mucus 0 SEEN Micro: Microbiology 09/21/22 17:03 Nasal Secretion SARS-CoV-2 & FLU Antigen (Rapid) - Final Radiology Impression Chest X-Ray 09/21/22 16:43 IMPRESSION: Right hilar fullness with paratracheal lymphadenopathy and mass not excluded, recommend cross-sectional CT imaging with contrast for definitive characterization. Electronically Signed: Gianni Hunter DO at 17:03 EDT , Chest CTA 09/21/22 17:09 IMPRESSION: 1. No evidence of pulmonary embolus or aortic dissection. 2. Scattered areas of air trapping within the bilateral lung parenchyma with patchy areas of groundglass opacity within the right lung with underlying multifocal infiltrates versus alveolar edema present. 3. Questionable 2 cm lymph node overlies the right paratracheal region with the majority of opacity on recent plain film within the right hilar region caused by overlapping vascular structures. Recommend follow-up imaging in 4-[address] chest without contrast for confirmation. Electronically Signed: Gianni Hunter DO at 18:42 EDT , Assessment & Plan Assessment/Plan (1) Acute respiratory failure with hypoxia: (2) Elevated brain natriuretic peptide (BNP) level: (3) Acute decompensated heart failure: (4) Hyperglycemia: (5) Hypokalemia: (6) Tachycardia: (7) Tachypnea: (8) Abnormal CT scan, chest: PLAN: Plan Acute hypoxic respiratory failure secondary to acute decompensated heart failureof unknown type -Patient does not wear oxygen at baseline -Recent surgery CTA was performed and ruled out PE -CT demonstrates bilateral patchy infiltrates that appear to be consistent with heart failure -Check echocardiogram -Cycle cardiac enzymes -Lasix IV push twice daily -Daily weights -Fluid restriction -Sodium restricted diet -Check TSH -Currently requiring 4 L nasal cannula maintain oxygen saturation--> wean as able Elevated BNP -Secondary to acute decompensated heart failure -Treatment as above Hypokalemia -Potassium replacement with 40 mill equivalents p.o. potassium -Repeat BMP in a.m. -Check a.m. magnesium level Abnormal CT -2 cm lymph node overlying the right peritracheal region in the right hilar areawith recommended follow-up in 4 to [address] Recent right total hip arthroplasty -Performed by Dr. Santos at [facility] on 08/20/2022 -CTA negative for PE -PT/OT -Ongoing outpatient follow-up after discharge Hypothyroidism -Continue home Synthroid once dose is clarified -check TSH Hypertension -Patient takes lisinopril 10/HCTZ 25 daily -Hold HCTZ while on diuretics -Continue lisinopril 10 mg daily -Would likely benefit from a beta-jordy however with acute heart failure will not start at this time and wait until she has a little more compensated with regards to her heart failure Obesity -BMI 33.3 -Complicates treatment, prognosis, outcomes -Recommend weight loss DVT prophylaxis -Lovenox daily CODE STATUS -Full code Charges/Coding Visit Charges Inpatient E&M: 12858 Init Hosp L3 09/21/22 1930 <Electronically signed by Em Diamond DO> Cosigner Signature (if applicable): CC: Dr. Hoda Del Rosario MD; Dr. Em Diamond DO~ Signed [facility] Work Phone: History and physical note Author Amol Jones [facility] January 09, 2023 8:55am Note Date/Time January 09, 2023 8: 55am [facility] Medical Records Department [address] [place] [address] History & Physical Exam 01/09/23 0854 MR#: [id number] Acct: [id number] Name: MAKENNA ANDRE Rep #:[id number] : 1955 67 From: Amol bautista MD PCP: Dr. Hoda Del Rosario MD Status:[facility] Location: [place] [address] History and Physical Date of Admission: 01/09/23 Intake Vital Signs 11/08/2313:24 Height 5 ft 1 in Intake Visit Reasons: POSITIVE COLOGUARD Chief Complaint: SOB x2 weeks Allergies Penicillins Allergy (Verified 11/08/22 14:27) Hives PFSH Medical History Acute on chronic respiratory failure with hypoxia and hypercapnia Cataract HTN (hypertension) Hypothyroid Surgical History History of right hip replacement Social History household members: spouse housing: house Smoking Status: Former smoker how long ago did patient quit smokin plus years ago alcohol intake: never substance use type: does not use HPI HPI HPI: Patient is here due to positive Cologuard. Patient denies any gross blood in her stool or abdominal pain. She says her last colonoscopy was 10 years ago. Patient is also having difficulty with her respiratory status. She is on 3 L ofsupplemental oxygen and still maintains her oxygenation only in the 80s. ROS General General: Yes fatigue; No appetite HEENT HEENT: No eye injury Musc Musculoskeletal: No back problems Cardio Cardiovascular: No murmur Exam Const General: cooperative Orientation: alert and oriented x3 HENMT Head: normal to inspection Neck Neck: normal visual inspection and full ROM Chest Chest palpation & inspection: normal inspection of the chest Resp Effort & Inspection: labored Cardio Rate: regular rate Rhythm: regular rhythm GI Inspection: non-distended Palpation: soft and nontender Skin General: no rashes or lesions noted Neuro General: patient alert and patient oriented x3 Extrem General: full ROM Psych Appearance: grossly normal Mental Status: mental status grossly normal Assessment and Plan Assessment and Plan (1) Positive colorectal cancer screening using Cologuard test: Status: Acute Plan: The patient has positive Cologuard and requires colonoscopy but she is still hypoxic on supplemental oxygen. Once she can have her respiratory status improved I can perform her colonoscopy. I explained endoscopy in detail to the patient. I explained the risks includingbut not limited to stroke or heart attack with anesthesia, perforation of the GItract, bleeding, infection. I explained that any of these could necessitate further emergency surgery. The patient understands and all questions were answered sufficiently. The patient wishes to proceed with procedure. Amol Jones MD Pager: [facility] [address] [place] [address], [address] [place] [address] Office: I have examined the patient and the H&P has been reviewed. There are no clinicalchanges since date of exam. The patient was cleared for her procedure by pulmonology. 01/09/23 0855 <Electronically signed by Amol Jones MD> Cosigner Signature (if applicable): CC: Dr. Amol Jones MD; Dr. Hoda Del Rosario MD~ Signed [facility] Work Phone: Reason for referral (narrative)* Outpatient Procedure (Routine) - Pending Review Specialty Diagnoses / Procedures Referred By Contac t Referred To Contact [facility] Diagnoses ILD (interstitial lung disease) (HCC) Procedures SIX MINUTE WALK CARDIOPULMONARY EXERCISE STRESS Amol Godwin MD [address] [place] [address] [address] Referral ID Status Reason Start Date Expiration Date Visits Requested Visits Authorized [id number] Pending Review Auto-Generat ed Referral 10/24/2023 11/22/2024 1 1 * Outpatient Procedure (Routine) - Authorized Specialty Diagnoses / Procedures Referred By Contac t Referred To [facility] Diagnoses Pulmonary HTN (HCC) ILD (interstitial lung disease) (HCC) Procedures OXIMETRY WITH AMBULATION NONINVASIVE EAR/PULSE OXIMETRY MULTIPLE DETER Amol Godwin MD [address] [place] [phone] [address] Referral ID Status Reason Start Date Expiration Date Visits Requested Visits Authorized [id number] Authorized Auto-Generat ed Referral 10/24/2023 11/22/2024 1 1 * Outpatient Procedure (Routine) - Pending Review Specialty Diagnoses / Procedures Referred By Contac t Referred To [facility] Diagnoses ILD (interstitial lung disease) (HCC) Procedures LUNG VOLUMES Amol Godwin MD [address] [place] [phone] [address] Referral ID Status Reason Start Date Expiration Date Visits Requested Visits Authorized [id number] Pending Review Auto-Generat ed Referral 10/24/2023 11/22/2024 1 1 * Outpatient Procedure (Routine) - Authorized Specialty Diagnoses / Procedures Referred By Contac t Referred To [facility] Diagnoses ILD (interstitial lung disease) (HCC) Procedures LUNG DIFFUSION CAPACITY (DLCO) DIFFUSING CAPACITY Amol Godwin MD [address] [place] [address] [address] Referral ID Status Reason Start Date Expiration Date Visits Requested Visits Authorized [id number] Authorized Auto-Generat ed Referral 10/24/2023 11/22/2024 1 1 * Outpatient Procedure (Routine) - Authorized Specialty Diagnoses / Procedures Referred By Contac t Referred To [facility] Diagnoses ILD (interstitial lung disease) (HCC) Procedures SPIROMETRY - BASELINE AND POST DILATOR BRNCDILAT RSPSE SPMTRY PRE&POST-BRNCDILAT ADMAmol Bae MD [address] [place] [phone] [address] Referral ID Status Reason Start Date Expiration Date Visits Requested Visits Authorized [id number] Authorized Auto-Generat ed Referral 10/24/2023 11/22/2024 1 1 [facility] for referral (narrative)* Outpatient Procedure (Routine) - Closed Specialty Diagnoses / Procedures Referred By Contac t Referred To [facility] HEART [facility] Diagnoses Pulmonary HTN (HCC) Procedures ECHO ECHO TTHRC R-T 2D W/WOM-MODE COMPL SPEC&COLR D Jason Macias APRN.CNP [address] [place] [address] [facility] Vascular [address] [address] Referral ID Status Reason Start Date Expiration Date V isits Requested Visits Authorized [id number] Closed Auto-Generate d Referral 05/16/2024 02/24/2025 1 1 [facility] for referral (narrative)* Outpatient Procedure (Routine) - New Request Specialty Diagnoses / Procedures Referred By Contac t Referred To [facility] Diagnoses Interstitial pulmonary disease (HCC) Procedures OXIMETRY WITH AMBULATION NONINVASIVE EAR/PULSE OXIMETRY MULTIPLE DETER Salvador Marin MD [address] [place] [address] [address] Referral ID Status Reason Start Date Expiration Date Visits Requested Visits Authorized [id number] New Request Auto-Generat ed Referral 06/03/2024 07/03/2025 1 1 * Outpatient Procedure (Routine) - New Request Specialty Diagnoses / Procedures Referred By Contac t Referred To [facility] Diagnoses Interstitial pulmonary disease (HCC) Procedures SPIROMETRY - BASELINE AND POST DILATOR BRNCDILAT RSPSE SPMTRY PRE&POST-BRNCDILAT ADMSalvador Devine MD [address] [place] [address] [place] [address] [address] Referral ID Status Reason Start Date Expiration Date Visits Requested Visits Authorized [id number] New Request Auto-Generat ed Referral 06/03/2024 07/03/2025 1 1 * Outpatient Procedure (Routine) - New Request Specialty Diagnoses / Procedures Referred By Contac t Referred To [facility] Diagnoses Interstitial pulmonary disease (HCC) Procedures SIX MINUTE WALK CARDIOPULMONARY EXERCISE STRESS Salvador Marin MD [address] [place] [address] [place] [phone] [address] Referral ID Status Reason Start Date Expiration Date Visits Requested Visits Authorized [id number] New Request Auto-Generat ed Referral 06/03/2024 07/03/2025 1 1 * Outpatient Procedure (Routine) - New Request Specialty Diagnoses / Procedures Referred By Contac t Referred To Contact [facility] Diagnoses Interstitial pulmonary disease (HCC) Procedures LUNG DIFFUSION CAPACITY (DLCO) DIFFUSING CAPACITY Salvador Marin MD [address] [address] Respiratory [place] [address] [place] [address] Referral ID Status Reason Start Date Expiration Date Visits Requested Visits Authorized [id number] New Request Auto-Generat ed Referral 06/03/2024 07/03/2025 1 1 [facility]No reason for referral information availableWGreen [facility] Work Phone: Reason for visit Narrative* Outpatient Procedure (Routine) - Closed Specialty Diagnoses / Procedures Referred By Contac t Referred To [facility] Diagnoses Pulmonary HTN (HCC) Procedures ECHO ECHO TTHRC R-T 2D W/WOM-MODE COMPL SPEC&COLR D Jason Macias, POWERHOUSE MECHANIC APPRENTICE.UPSETTER SETTER UP [address] [place] [address] [facility] [place] [address] [place] [address] Referral ID Status Reason Start Date Expiration Date V isits Requested Visits Authorized [id number] Closed Auto-Generate d Referral 05/16/2024 02/24/2025 1 1 [facility] Chief Complaint and Reason for Visit Chief Complaint RT HIP ARTHRITIS,HIP PAIN/PT HAS RX Chief Complaint RT HIP ARTHRITIS,HIP PAIN/PT HAS RX I=UNI LITA OA RT HIP/RX HERE HYPOXIC RESPIRATORY FAILURE/ACUTE DECOMPENSATED HYPOXIC RESPIRATORY FAILURE/ACUTE DECOMPENSATED Reason for Visit Abnormal CT scan, ch est Acute decompensated heart failure Acute respiratory failure with hypoxia Elevated brain natriuretic peptide (BNP) level Hyperglycemia Hypokalemia Tachycardia Tachypnea Chief Complaint RT HIP ARTHRITIS,HIP PAIN/PT HAS RX I=UNI LITA OA RT HIP/RX HERE HYPOXIC RESPIRATORY FAILURE/ACUTE DECOMPENSATED HYPOXIC RESPIRATORY FAILURE/ACUTE DECOMPENSATED HYPOXIC RESPIRATORY FAILURE/ACUTE DECOMPENSATED HYPOXIC RESPIRATORY FAILURE/ACUTE DECOMPENSATED HYPOXIC RESPIRATORY FAILURE/ACUTE DECOMPENSATED HYPOXIC RESPIRATORY FAILURE/ACUTE DECOMPENSATED HYPOXIC RESPIRATORY FAILURE/ACUTE DECOMPENSATED HYPOXIC RESPIRATORY FAILURE/ACUTE DECOMPENSATED HYPOXIC RESPIRATORY FAILURE/ACUTE DECOMPENSATED HYPOXIC RESPIRATORY FAILURE/ACUTE DECOMPENSATED Reason for Visit Abnormal CT scan, ch est Acute decompensated heart failure Acute respiratory failure with hypoxia Elevated brain natriuretic peptide (BNP) level Hyperglycemia Hypokalemia Tachycardia Tachypnea Chief Complaint HYPOXIC RESPIRATORY FAILURE/ACUTE DECOMPENSATED HYPOXIC RESPIRATORY FAILURE/ACUTE DECOMPENSATED HYPOXIC RESPIRATORY FAILURE/ACUTE DECOMPENSATED HYPOXIC RESPIRATORY FAILURE/ACUTE DECOMPENSATED HYPOXIC RESPIRATORY FAILURE/ACUTE DECOMPENSATED HYPOXIC RESPIRATORY FAILURE/ACUTE DECOMPENSATED HYPOXIC RESPIRATORY FAILURE/ACUTE DECOMPENSATED HYPOXIC RESPIRATORY FAILURE/ACUTE DECOMPENSATED HYPOXIC RESPIRATORY FAILURE/ACUTE DECOMPENSATED HYPOXIC RESPIRATORY FAILURE/ACUTE DECOMPENSATED I=UNI LITA OA RT HIP/RX HERE Reason for Visit Abnormal CT scan, ch est Acute decompensated heart failure Acute respiratory failure with hypoxia Elevated brain natriuretic peptide (BNP) level Hyperglycemia Hypokalemia Tachycardia Tachypnea Chief Complaint HYPOXIC RESPIRATORY FAILURE/ACUTE DECOMPENSATED HYPOXIC RESPIRATORY FAILURE/ACUTE DECOMPENSATED HYPOXIC RESPIRATORY FAILURE/ACUTE DECOMPENSATED HYPOXIC RESPIRATORY FAILURE/ACUTE DECOMPENSATED HYPOXIC RESPIRATORY FAILURE/ACUTE DECOMPENSATED HYPOXIC RESPIRATORY FAILURE/ACUTE DECOMPENSATED HYPOXIC RESPIRATORY FAILURE/ACUTE DECOMPENSATED HYPOXIC RESPIRATORY FAILURE/ACUTE DECOMPENSATED HYPOXIC RESPIRATORY FAILURE/ACUTE DECOMPENSATED HYPOXIC RESPIRATORY FAILURE/ACUTE DECOMPENSATED I=UNI LITA OA RT HIP/RX HERE Pneumonitis due to inhalation of food and vomit Hospital FU-pneumonia SOB Reason for Visit Abnormal CT scan, ch est Acute decompensated heart failure Acute respiratory failure with hypoxia Elevated brain natriuretic peptide (BNP) level Hyperglycemia Hypokalemia Tachycardia Tachypnea Acute on chronic respiratory failure with hypoxia and hypercapnia Chief Complaint HYPOXIC RESPIRATORY FAILURE/ACUTE DECOMPENSATED HYPOXIC RESPIRATORY FAILURE/ACUTE DECOMPENSATED HYPOXIC RESPIRATORY FAILURE/ACUTE DECOMPENSATED HYPOXIC RESPIRATORY FAILURE/ACUTE DECOMPENSATED HYPOXIC RESPIRATORY FAILURE/ACUTE DECOMPENSATED HYPOXIC RESPIRATORY FAILURE/ACUTE DECOMPENSATED HYPOXIC RESPIRATORY FAILURE/ACUTE DECOMPENSATED HYPOXIC RESPIRATORY FAILURE/ACUTE DECOMPENSATED HYPOXIC RESPIRATORY FAILURE/ACUTE DECOMPENSATED HYPOXIC RESPIRATORY FAILURE/ACUTE DECOMPENSATED I=UNI LITA OA RT HIP/RX HERE Pneumonitis due to inhalation of food and vomit Hospital FU-pneumonia SOB POSITIVE COLOGUARD follow up from hospital e orders HEART FAILURE, CHF, ABN CT CHEST HEART FAILURE, CHF, ABN CT CHEST Reason for Visit Abnormal CT scan, ch est Acute decompensated heart failure Acute respiratory failure with hypoxia Elevated brain natriuretic peptide (BNP) level Hyperglycemia Hypokalemia Tachycardia Tachypnea Acute on chronic respiratory failure with hypoxia and hypercapnia Positive colorectal cancer screening using Cologuard test Abnormal CT scan, chest CHF (congestive heart failure) Chronic respiratory failure with hypoxia Chief Complaint HYPOXIC RESPIRATORY FAILURE/ACUTE DECOMPENSATED HYPOXIC RESPIRATORY FAILURE/ACUTE DECOMPENSATED HYPOXIC RESPIRATORY FAILURE/ACUTE DECOMPENSATED HYPOXIC RESPIRATORY FAILURE/ACUTE DECOMPENSATED HYPOXIC RESPIRATORY FAILURE/ACUTE DECOMPENSATED HYPOXIC RESPIRATORY FAILURE/ACUTE DECOMPENSATED HYPOXIC RESPIRATORY FAILURE/ACUTE DECOMPENSATED HYPOXIC RESPIRATORY FAILURE/ACUTE DECOMPENSATED HYPOXIC RESPIRATORY FAILURE/ACUTE DECOMPENSATED HYPOXIC RESPIRATORY FAILURE/ACUTE DECOMPENSATED I=UNI LITA OA RT HIP/RX HERE Pneumonitis due to inhalation of food and vomit Hospital FU-pneumonia SOB POSITIVE COLOGUARD follow up from hospital e orders HEART FAILURE, CHF, ABN CT CHEST HEART FAILURE, CHF, ABN CT CHEST 1 M FU Reason for Visit Abnormal CT scan, ch est Acute decompensated heart failure Acute respiratory failure with hypoxia Elevated brain natriuretic peptide (BNP) level Hyperglycemia Hypokalemia Tachycardia Tachypnea Acute on chronic respiratory failure with hypoxia and hypercapnia Positive colorectal cancer screening using Cologuard test Abnormal CT scan, chest CHF (congestive heart failure) Chronic respiratory failure with hypoxia Daytime hypersomnia Pulmonary hypertension Chronic respiratory failure with hypoxia Chief Complaint HYPOXIC RESPIRATORY FAILURE/ACUTE DECOMPENSATED HYPOXIC RESPIRATORY FAILURE/ACUTE DECOMPENSATED HYPOXIC RESPIRATORY FAILURE/ACUTE DECOMPENSATED HYPOXIC RESPIRATORY FAILURE/ACUTE DECOMPENSATED HYPOXIC RESPIRATORY FAILURE/ACUTE DECOMPENSATED HYPOXIC RESPIRATORY FAILURE/ACUTE DECOMPENSATED HYPOXIC RESPIRATORY FAILURE/ACUTE DECOMPENSATED I=UNI LITA OA RT HIP/RX HERE Pneumonitis due to inhalation of food and vomit Hospital FU-pneumonia SOB POSITIVE COLOGUARD follow up from hospital e orders HEART FAILURE, CHF, ABN CT CHEST HEART FAILURE, CHF, ABN CT CHEST 1 M FU HYPERSOMNIA Reason for Visit Abnormal CT scan, ch est Acute decompensated heart failure Acute respiratory failure with hypoxia Elevated brain natriuretic peptide (BNP) level Hyperglycemia Hypokalemia Tachycardia Tachypnea Acute on chronic respiratory failure with hypoxia and hypercapnia Positive colorectal cancer screening using Cologuard test Abnormal CT scan, chest CHF (congestive heart failure) Chronic respiratory failure with hypoxia Daytime hypersomnia Pulmonary hypertension Chronic respiratory failure with hypoxia Chief Complaint I=UNI LITA OA RT HIP/ RX HERE Pneumonitis due to inhalation of food and vomit Hospital FU-pneumonia SOB POSITIVE COLOGUARD follow up from hospital e orders HEART FAILURE, CHF, ABN CT CHEST HEART FAILURE, CHF, ABN CT CHEST 1 M FU HYPERSOMNIA Amb Documentation CHRIS; BIPAP S *DEVICE TAGGED SOB (MIEDEL) Reason for Visit CHF (congestive hear t failure) Chronic respiratory failure with hypoxia Daytime hypersomnia Chronic respiratory failure with hypoxia Pulmonary hypertension Chronic respiratory failure with hypoxia 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 (chronic) Dyspnea on exertion Essential (primary) hypertension Pulmonary hypertension Restrictive lung disease Chief Complaint Pneumonitis due to i nhalation of food and vomit Hospital FU-pneumonia SOB POSITIVE COLOGUARD follow up from hospital e orders HEART FAILURE, CHF, ABN CT CHEST HEART FAILURE, CHF, ABN CT CHEST 1 M FU HYPERSOMNIA Amb Documentation CHRIS; BIPAP S *DEVICE TAGGED SOB (MIEDEL) Heart failure, unspecified Heart failure, unspecified Reason for Visit CHF (congestive hear t failure) Chronic respiratory failure with hypoxia Daytime hypersomnia Chronic respiratory failure with hypoxia Pulmonary hypertension Chronic respiratory failure with hypoxia 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 (chronic) Dyspnea on exertion Essential (primary) hypertension Pulmonary hypertension Restrictive lung disease Chief Complaint HEART FAILURE, CHF, ABN CT CHEST HEART FAILURE, CHF, ABN CT CHEST 1 M FU HYPERSOMNIA Amb Documentation CHRIS; BIPAP S *DEVICE TAGGED SOB (MIEDEL) Heart failure, unspecified Heart failure, unspecified ABN STRESS TEST, SOB/RODRIGUEZ ABN STRESS TEST, SOB/RODRIGUEZ Reason for Visit Daytime hypersomnia Chronic respiratory failure with hypoxia Pulmonary hypertension Chronic respiratory failure with hypoxia 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 (chronic) Dyspnea on exertion Essential (primary) hypertension Pulmonary hypertension Restrictive lung disease Chief Complaint HEART FAILURE, CHF, ABN CT CHEST HEART FAILURE, CHF, ABN CT CHEST 1 M FU HYPERSOMNIA Amb Documentation CHRIS; BIPAP S *DEVICE TAGGED SOB (MIEDEL) Heart failure, unspecified Heart failure, unspecified ABN STRESS TEST, SOB/RODRIGUEZ ABN STRESS TEST, SOB/RODRIGUEZ SCREENING Reason for Visit Daytime hypersomnia Chronic respiratory failure with hypoxia Pulmonary hypertension Chronic respiratory failure with hypoxia 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 (chronic) Dyspnea on exertion Essential (primary) hypertension Pulmonary hypertension Restrictive lung disease Chief Complaint Amb Documentation CHRIS; BIPAP S *DEVICE TAGGED SOB (MIEDEL) Heart failure, unspecified Heart failure, unspecified ABN STRESS TEST, SOB/RODRIGUEZ ABN STRESS TEST, SOB/RODRIGUEZ SCREENING 3 M FU 8 wk fu E ORDER Reason for Visit Chronic respiratory failure with hypoxia 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 (chronic) Dyspnea on exertion Essential (primary) hypertension Pulmonary hypertension Restrictive lung disease CHRIS and COPD overlap syndrome Chronic respiratory failure with hypoxia Pulmonary hypertension Restrictive lung disease Chronic respiratory failure with hypoxia 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 (chronic) Coronary artery disease Dyspnea on exertion Essential (primary) hypertension Pulmonary hypertension Restrictive lung disease Chief Complaint ABN STRESS TEST, SOB /RODRIGUEZ SCREENING 3 M FU 8 wk fu E ORDER PULM HTN PULM HTN PULM HTN Reason for Visit CHRIS and COPD overlap syndrome Chronic respiratory failure with hypoxia Pulmonary hypertension Restrictive lung disease Chronic respiratory failure with hypoxia 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 (chronic) Coronary artery disease Dyspnea on exertion Essential (primary) hypertension Pulmonary hypertension Restrictive lung disease Chief Complaint Admit Date 6 M FU April 30, 2024 1 :45pm ACUTE ON CHRONIC RESPIRATORY FAILURE Fe [facility] 2024 3:01pm ACUTE ON CHRONIC RESPIRATORY FAILURE Fe [facility]ann 2024 10:41am ACUTE ON CHRONIC RESPIRATORY FAILURE Feb [facility] 2024 1:32pm ACUTE ON CHRONIC RESPIRATORY FAILURE Feb [facility] 2024 1:19pm ACUTE ON CHRONIC RESPIRATORY FAILURE Feb [facility] 2024 2:17pm ACUTE ON CHRONIC RESPIRATORY FAILURE Feb [facility] 2024 10:38am ACUTE ON CHRONIC RESPIRATORY FAILURE Feb [facility] 2024 2:31pm ACUTE ON CHRONIC RESPIRATORY FAILURE Feb [facility] 2024 11:59am ACUTE ON CHRONIC RESPIRATORY FAILURE [facility] 2024 1:34pm ACUTE ON CHRONIC RESPIRATORY FAILURE Feb [facility] 2024 11:17am ACUTE ON CHRONIC RESPIRATORY FAILURE Feb [facility] 2024 4:00pm ACUTE ON CHRONIC RESPIRATORY FAILURE Fe [facility]ann 2024 3:35pm ACUTE ON CHRONIC RESPIRATORY FAILURE Fe [facility]ann 2024 12:06pm Reason for Visit Admit Date Chronic respiratory failure with hypoxia April 30, 2024 1:45pm 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 (chronic) April 30 1:45pm Coronary artery disease April 30 1:45pm Dyslipidemia April 30, 2024 1 :45pm Dyspnea on exertion April 30, 2024 1 :45pm Essential (primary) hypertension [facility] 2023 1:45pm Pulmonary hypertension April 30 1:45pm Restrictive lung disease April 30, 2 024 1:45pm Acute on chronic respiratory failure wit h hypoxemia June 28, 2024 3:01pm Restrictive lung disease June 28 025 3:01pm Chief Complaint Admit Date ACUTE ON CHRONIC RESPIRATORY FAILURE Fe rulouann 2024 3:01pm ACUTE ON CHRONIC RESPIRATORY FAILURE Fe [facility] 2024 10:41am ACUTE ON CHRONIC RESPIRATORY FAILURE Fe [facility] 2024 1:32pm ACUTE ON CHRONIC RESPIRATORY FAILURE Fe [facility] 2024 1:19pm ACUTE ON CHRONIC RESPIRATORY FAILURE Feb [facility] 2024 2:17pm ACUTE ON CHRONIC RESPIRATORY FAILURE Feb [facility] 2024 10:38am ACUTE ON CHRONIC RESPIRATORY FAILURE Feb [facility] 2024 2:31pm ACUTE ON CHRONIC RESPIRATORY FAILURE Feb [facility] 2024 11:59am ACUTE ON CHRONIC RESPIRATORY FAILURE [facility] 2024 1:34pm ACUTE ON CHRONIC RESPIRATORY FAILURE Feb [facility] 2024 11:17am ACUTE ON CHRONIC RESPIRATORY FAILURE Feb [facility] 2024 4:00pm ACUTE ON CHRONIC RESPIRATORY FAILURE Feb [facility] 2024 3:35pm ACUTE ON CHRONIC RESPIRATORY FAILURE Feb [facility] 2024 12:06pm Pulmonary HTN September 04, 2024 9:5 1am Pulmonary HTN September 08, 2024 2:1 6pm Reason for Visit Admit Date Acute on chronic respiratory failure wit h hypoxemia June 28, 2024 3:01pm Restrictive lung disease June 28, 3:01pm Chief Complaint Admit Date ACUTE ON CHRONIC RESPIRATORY FAILURE [facility] 2024 3:01pm ACUTE ON CHRONIC RESPIRATORY FAILURE Feb [facility] 2024 10:41am ACUTE ON CHRONIC RESPIRATORY FAILURE [facility] 2024 1:32pm ACUTE ON CHRONIC RESPIRATORY FAILURE [facility] 2024 1:19pm ACUTE ON CHRONIC RESPIRATORY FAILURE [facility] 2024 2:17pm ACUTE ON CHRONIC RESPIRATORY FAILURE [facility] 2024 10:38am ACUTE ON CHRONIC RESPIRATORY FAILURE [facility] 2024 2:31pm ACUTE ON CHRONIC RESPIRATORY FAILURE Feb [facility] 2024 11:59am ACUTE ON CHRONIC RESPIRATORY FAILURE [facility] 2024 1:34pm ACUTE ON CHRONIC RESPIRATORY FAILURE Feb [facility] 2024 11:17am ACUTE ON CHRONIC RESPIRATORY FAILURE Feb [facility] 2024 4:00pm ACUTE ON CHRONIC RESPIRATORY FAILURE Feb [facility] 2024 3:35pm ACUTE ON CHRONIC RESPIRATORY FAILURE [facility] 2024 12:06pm Pulmonary HTN September 04, 2024 9:5 1am Pulmonary HTN September 24, 2024 1:0 0pm Pulmonary HTN October 24, 2024 1:00p m Chief Complaint Admit Date ACUTE ON CHRONIC RESPIRATORY FAILURE [facility] 2024 3:01pm ACUTE ON CHRONIC RESPIRATORY FAILURE [facility] 2024 1:19pm ACUTE ON CHRONIC RESPIRATORY FAILURE [facility] 2024 2:17pm ACUTE ON CHRONIC RESPIRATORY FAILURE Fe [facility] 2024 10:38am ACUTE ON CHRONIC RESPIRATORY FAILURE Fe [facility] 2024 2:31pm ACUTE ON CHRONIC RESPIRATORY FAILURE Feb [facility] 2024 11:59am ACUTE ON CHRONIC RESPIRATORY FAILURE [facility] 2024 1:34pm ACUTE ON CHRONIC RESPIRATORY FAILURE Fe [facility] 2024 11:17am ACUTE ON CHRONIC RESPIRATORY FAILURE Feb [facility] 2024 4:00pm ACUTE ON CHRONIC RESPIRATORY FAILURE [facility] 2024 3:35pm ACUTE ON CHRONIC RESPIRATORY FAILURE [facility] 2024 12:06pm Pulmonary HTN September 04, 2024 9:5 1am Pulmonary HTN September 24, 2024 1:0 0pm Pulmonary HTN October 24, 2024 1:00p m Pulmonary HTN October 29, 2024 1:00p m 6 M FU October 29, 2024 1:39p m Reason for Visit Admit Date Restrictive lung disease June 28, 025 3:01pm Acute on chronic respiratory failure wit h hypoxemia June 28, 2024 3:01pm Chronic respiratory failure with hypoxia October 29, 2024 1:39pm 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 (chronic) October 29, 2024 1 :39pm Coronary artery disease October 29, 2024 1 :39pm Dyslipidemia October 29, 2024 1:39p m Dyspnea on exertion October 29, 2024 1:39p m Essential (primary) hypertension October 1:39pm Pulmonary hypertension October 29, 2024 1: 39pm Restrictive lung disease October 29, 2024 1:39pm Advance Directives No Advanced Directives Records Found Date Activated Date Inactivated Comments 10/02/2023 8:06 PM 10/07/2023 7:33 PM Question Answer Comments Full Code Order Discussed With: Patient Advance Directive Response Recorded Date/ Time Living Will No September 21, 2022 4:35pm Power of Help Desk Analyst No September 21 4:35pm Advance Directive Response Recorded Date/ Time Living Will No September 21, 2022 8:14pm Power of Help Desk Analyst No September 21 8:14pm Advance Directive Response Recorded Date/ Time Living Will No November 08, 2022 3:09pm Power of Help Desk Analyst No November 08 3:09pm Advance Directive Response Recorded Date/ Time Living Will No January 03, 2023 11:22am Power of Help Desk Analyst No January 03 11:22am Advance Directive Response Recorded Date/ Time Advance Directives No March 8:40am Living Will No April 16 023 8:40am Power of Help Desk Analyst No April 16, 2023 8:40am Date Activated Date Inactivated Comments 10/02/2023 8:06 PM Date Activated Date Inactivated Comments 10/02/2023 8:06 PM 10/07/2023 7:33 PM Question Answer Comments Full Code Order Discussed With: Patient Advance Directive Response Recorded Date/ Time Living Will No June 28 3:51pm Power of Help Desk Analyst No June 28, 2024 3:51pm Advance Directives No March 8:40am Advance Directive Response Recorded Date/ Time Living Will No June 28 4:51pm Do you have a Healthcare Power of Help Desk Analyst? No June 28, 2024 4:51pm Advance Directives on File No September 04, 2024 10:13am Living Will No September 04, 2024 10:13am Do you have a Healthcare Power of Help Desk Analyst? No September 04, 2024 10:13am Advance Directives No March 9:40am Family History No Family History Records Found Relationship Condition Age at Onset Recorded Date/T wilbur father Cerebrovascular accident (CVA) Unknown Coronary artery disease Unknown Myocardial infarction Unknown brother Myocardial infarction Unknown brother Coronary artery disease Unknown Reason for Referral Specialty Diagnoses / Procedures Referred By Amalia duvall Referred To Contact Diagnoses CHRIS (obstructive sleep apnea) Procedures CONSULT TO SLEEP MEDICINE - ADULT OFFICE/OUTPATIENT [facility] 60 MINUTES Jason Macias APRN.UPSETTER SETTER UP [address] [place] [address] Referral ID Status Reason Start Date Expiration Date Visits Requested Visits Authorized [id number] Authorized PCP Requested Referral 02/25/2024 02/24/2025 1 1 Specialty Diagnoses / Procedures Referred By Amalia duvall Referred To Contact [facility] Diagnoses Pulmonary HTN (HCC) Procedures ECHO ECHO TTHRC R-T 2D W/WOM-MODE COMPL SPEC&COLR D Joserubin, Jason, POWERHOUSE MECHANIC APPRENTICE.UPSETTER SETTER UP [address] [place] [address] [facility] [address] [place] [address] Referral ID Status Reason Start Date Expiration Date Visits Requested Visits Authorized [id number] Authorized Auto-Generat ed Referral 02/24/2025 1 1 Specialty Diagnoses / Procedures Referred By Contac t Referred To Contact CT IMAGING Diagnoses ILD (interstitial lung disease) (HCC) Interstitial pulmonary disease (HCC) Procedures CT CHEST WO IVCON DIAGNOSTIC COMPUTED TOMOGRAPHY THORAX W/O CNTRST Meliton Jason, POWERHOUSE MECHANIC APPRENTICE.UPSETTER SETTER UP [address] [place] [address] [place] [address] Referral ID Status Reason Start Date Expiration Date Visits Requested Visits Authorized [id number] Authorized Auto-Generat ed Referral 02/25/2024 03/26/2025 1 1 Referral ID Status Reason Start Date Expiration Date V isits Requested Visits Authorized [id number] Closed Auto-Generate d Referral 02/25/2024 03/26/2025 1 1 Summary Purpose Additional Source Comments Goals (unrecognized section and content) Goals may be documented in a n alternate sectionGoals may be documented in an alternate sectionGoals may be documented in an alternate sectionGoals may be documented in an alternate sectionGoals may be documented in an alternate sectionGoals may be documented in an alternate sectionGoals may be documented in an alternate section Care Teams (unrecognized sec tion and content) Team Status: Active Member Role Status Dates Dr. Honorio Henderson MD Family Provider Active Dr. Hoda Del Rosario MD Primary Care Provider Active Team Status: Inactive Member Role Status Dates Dr. Honorio Henderson MD Primary Care Provider, Attending Provider Active Team Status: Inactive Member Role Status Dates Dr. Honorio Henderson MD Primary Care Provider Active Dr. Alphonse Santos MD Attending Provider, Referring Provider Active Team Status: Inactive Member Role Status Dates Dr. Hoda Del Rosario MD Primary Care Provider, Attendin g Provider Active Team Status: Active Member Role Status Dates Dr. Hoda Del Rosario MD Primary Care Provider Active Dr. Heri Hall , DO Emergency Provider Active Dr. Em Diamond , DO Admit Provider, Att ending Provider, Other Provider Active Team Status: Active Member Role Status Dates Dr. Hoda Del Rosario MD Primary Care Provider Active Dr. Alphonse Santos MD Attending Provider, Referring Provider Active Team Status: Active Member Role Status Dates Dr. Hoda Del Rosario MD Primary Care Provider Active Dr. Heri Hall , DO Emergency Provider Active Dr. Em Diamond , DO Admit Provider, Attending Provide r Active Team Status: Active Member Role Status Dates Dr. Hoda Del Rosario MD Primary Care Provider Active Dr. Kanika Rebolledo MD Attending Provider Activ e Team Status: Active Member Role Status Dates Dr. Hoda Del Rosario MD Primary Care Provider Active Dr. Heri Hall , DO Emergency Provider Active Dr. Em Diamond , DO Admit Provider, Other Provider Ac tive Dr. Silvestre Suero , DO Attending Provider, Other Pro vider Active Team Status: Active Member Role Status Dates Dr. Hoda Del Rosario MD Primary Care Provider Active Dr. Heri Hall , DO Emergency Provider Active Dr. Em Diamond , DO Admit Provider, Other Provider Ac tive Dr. Kory Woo MD Attending Provider, Other Provid er Active Dr. Silvestre Suero , DO Other Provider Active Team Status: Active Member Role Status Dates Dr. Hoda Del Rosario MD Primary Care Provider Active Dr. Heri Hall , DO Emergency Provider Active Dr. Em Diamond , DO Admit Provider, Other Provider Ac tive Dr. Kory Woo MD Attending Provider, Other Provid er Active Dr. Silvestre Suero , DO Other Provider Active Dr. Kamari Shi , DO Other Provider Active Team Status: Active Member Role Status Dates Dr. Hoda Del Rosario MD Primary Care Provider Active Dr. Heri Hall , DO Emergency Provider Active Dr. Em Diamond , DO Admit Provider, Other Provider Ac tive Dr. Kory Woo MD Other Provider Active Dr. Silvestre Suero , DO Other Provider Active Dr. Kamari Shi , DO Attending Provider, Other Provide r Active Team Status: Inactive Member Role Status Dates Dr. Hoda Del Rosario MD Primary Care Provider Active Dr. Heri Hall , DO Emergency Provider Active Dr. Em Diamond , DO Admit Provider, Other Provider Ac tive Dr. Kory Woo MD Attending Provider Active Dr. Silvestre Suero , DO Other Provider Active Dr. Kamari Shi , DO Other Provider Active Team Status: Active Member Role Status Dates Dr. Hoda Del Rosario MD Primary Care Provider Active Dr. Heri Hall , Emergency Provider Active Dr. Em Diamond , DO Admit Provider, Other Provider Ac tive Dr. Kory Woo MD Referring Provider, Other Provid er Active Dr. Silvestre Suero , DO Other Provider Active Dr. Kamari Shi , Attending Provider, Other Provide r Active Team Status: Inactive Member Role Status Dates Dr. Hoda Del Rosario MD Primary Care Provider Active Dr. Alphonse Santos MD Attending Provider, Referring Provider Active Team Status: Inactive Member Role Status Dates Dr. Hoda Del Rosario MD Primary Care Provider, Referrin g Provider Active Dr. Lobo Rangel MD Attending Provider Active Team Status: Inactive Member Role Status Dates Dr. Hoda Del Rosario MD Primary Care Prov ider, Attending Provider, Referring Provider Active Team Status: Inactive Member Role Status Dates Dr. Hoda Del Rosario MD Primary Care Provider Active Dr. Eva Barlow MD Emergency Provider Active Team Status: Inactive Member Role Status Dates Dr. Hoda Del Rosario MD Primary Care Provider, Referrin g Provider Active Dr. Amol Jones MD Attending Provider Active Team Status: Active Member Role Status Dates Dr. Hoda Del Rosario MD Primary Care Provider Active Dr. Lobo Rangel MD Referring Provider, Other Pro vider Active Dr. Kamari Shi , Attending Provider Active Team Status: Inactive Member Role Status Dates Dr. Hoda Del Rosario MD Primary Care Provider Active Dr. vEa Barlow MD Attending Provider, Emergency Provider Active Team Status: Inactive Member Role Status Dates Dr. Hoda Del Rosario MD Primary Care Provider Active Dr. Lobo Rangel MD Attending Provider Active Team Status: Inactive Member Role Status Dates Dr. Hoda Del Rosario MD Primary Care Provider Active Dr. Lobo Rangel MD Attending Provider, Referring Provider Active Team Status: Inactive Member Role Status Dates Dr. Hoda Del Rosario MD Primary Care Provider, Referrin g Provider Active Zeina Cedillo CARROT BUNCHER, CARROT BUNCHER-C Attending Provider Active Team Status: Active Member Role Status Dates Dr. Hoda Del Rosario MD Primary Care Provider, Referrin g Provider Active Dr. Amol Jones MD Attending Provider, Other Provider Active Team Status: Inactive Member Role Status Dates Dr. Hoda Del Rosario MD Primary Care Provider Active Zeina Cedillo CARROT BUNCHER, CARROT BUNCHER-C Attending Provider, Referrin g Provider Active Team Status: Inactive Member Role Status Dates Dr. Hoad Del Rosario MD Primary Care Provider, Referrin g Provider Active Dr. John Wheatley MD Attending Provider Active Team Status: Active Member Role Status Dates Dr. Hoda Del Rosario MD Primary Care Provider Active Adelina Sandoval RN Attending Provider Active Team Status: Inactive Member Role Status Dates Dr. Hoda Del Rosario MD Primary Care Provider Active Zeina Cedillo CARROT BUNCHER, CARROT BUNCHER-C Attending Provider Active Team Status: Active Member Role Status Dates Dr. Hoda Del Rosario MD Primary Care Provider Active Dr. John Wheatley MD Attending Provider , Referring Provider, Other Provider Active Team Status: Inactive Member Role Status Dates Dr. Hoda Del Rosario MD Primary Care Provider Active Dr. John Wheatley MD Attending Provider, Referring Pr ovider Active Team Status: Active Member Role Status Dates Dr. Hoda Del Rosario MD Primary Care Provider Active Dr. John Wheatley MD Attending Provider, Other Provid er Active Team Status: Inactive Member Role Status Dates Dr. Hoda Del Rosario MD Primary Care Provider, Referrin g Provider Active Dr. Kelvin Bennett MD Attending Provider Active Team Status: Active Member Role Status Dates Dr. Hoda Del Rosario MD Primary Care Provider Active Dr. Kelvin Bennett MD Attending Provider , Referring Provider, Other Provider Active Team Status: Inactive Member Role Status Dates Dr. Hoda Del Rosario MD Primary Care Provider Active Dr. Kelvin Bennett MD Attending Provider, Referring Pr ovider Active Team Status: Active Member Role Status Dates Dr. Hoda Del Rosario MD Primary Care Provider Active Dr. Kelvin Bennett MD Attending Provider, Referring Pr ovider Active Commercial Relief Driver Relationship Specialty Start Date End Date Hoda Del Rosario MD [address] [facility] [place] [address] PCP - General Family Medicine 10/02/23 Commercial Relief Driver Relationship Specialty Start Date End Date Hoda Del Rosario MD [address] [place] [address] PCP - General Family Medicine 10/02/23 Commercial Relief Driver Relationship Specialty Start Date End Date Hoda Del Rosario MD [address] [place] [address] PCP - General Family Medicine 10/02/23 Commercial Relief Driver Relationship Specialty Start Date End Date Hoda Del Rosario MD [address] [place] [address] PCP - General Family Medicine 10/02/23 Commercial Relief Driver Relationship Specialty Start Date End Date Hoda Del Rosario MD [address] [place] [address] PCP - General Family Medicine 10/02/23 Commercial Relief Driver Relationship Specialty Start Date End Date Hoda Del Rosario MD [address] [place] [address] PCP - General Family Medicine 10/02/23 Commercial Relief Driver Relationship Specialty Start Date End Date Hoda Del Rosario MD [address] [place] [address] PCP - General Family Medicine 10/02/23 Commercial Relief Driver Relationship Specialty Start Date End Date Hoda Del Rosario MD [address] [place] [address] PCP - General Family Medicine 10/02/23 Commercial Relief Driver Relationship Specialty Start Date End Date Hoda Del Rosario MD [address] [place] [address] PCP - General Family Medicine 10/02/23 Commercial Relief Driver Relationship Specialty Start Date End Date Hoda Del Rosario MD [address] [place] [address] PCP - General Family Medicine 10/02/23 Commercial Relief Driver Relationship Specialty Start Date End Date Hoda Del Rosario MD [address] [place] [address] PCP - General Family Medicine 10/02/23 Commercial Relief Driver Relationship Specialty Start Date End Date Hoda Del Rosario MD [address] [place] [address] PCP - General Family Medicine 10/02/23 Commercial Relief Driver Relationship Specialty Start Date End Date Hoda Del Rosario MD [address] [place] [address] PCP - General Family Medicine 10/02/23 Commercial Relief Driver Relationship Specialty Start Date End Date Hoda Del Rosario MD [address] [place] [address] PCP - General Family Medicine 10/02/23 Commercial Relief Driver Relationship Specialty Start Date End Date Hoda Del Rosario MD [address] [place] [address] PCP - General Family Medicine 10/02/23 Commercial Relief Driver Relationship Specialty Start Date End Date Hoda Del Rosario MD [address] [place] [address] PCP - General Family Medicine 10/02/23 Heri Tabor MD [address] [place] [address] Pulmonary and Critical Care Medicine 04/21/24 Commercial Relief Driver Relationship Specialty Start Date End Date Hoda Del Rosario MD [address] [address] PCP - General Family Medicine 10/02/23 Heri Tabor MD [address] [place] [address] Pulmonary and Critical Care Medicine 04/21/24 Commercial Relief Driver Relationship Specialty Start Date End Date Hoda Del Rosario MD [address] [place] [address] PCP - General Family Medicine 10/02/23 Heri Tabor MD [address] [place] [address] Pulmonary and Critical Care Medicine 04/21/24 Commercial Relief Driver Relationship Specialty Start Date End Date Hoda Del Rosario MD [address] [address] PCP - General Family Medicine 10/02/23 Heri Tabor MD [address] [place] [address] Pulmonary and Critical Care Medicine 04/21/24 Commercial Relief Driver Relationship Specialty Start Date End Date Hoda Del Rosario MD [address] [place] [address] PCP - General Family Medicine 10/02/23 Heri Tabor MD [address] [place] [address] Pulmonary and Critical Care Medicine 04/21/24 Commercial Relief Driver Relationship Specialty Start Date End Date Hoda Del Rosario MD [address] [place] [address] PCP - General Family Medicine 10/02/23 Heri Tabor MD [address] [place] [address] Pulmonary and Critical Care Medicine 04/21/24 Commercial Relief Driver Relationship Specialty Start Date End Date Hoda Del Rosario MD [address] [place] [address] PCP - General Family Medicine 10/02/23 Heri Tabor MD [address] [place] [address] Pulmonary and Critical Care Medicine 04/21/24 Commercial Relief Driver Relationship Specialty Start Date End Date Hoda Del Rosario MD [address] [place] [address] PCP - General Family Medicine 10/02/23 Heri Tabor MD [address] [place] [address] Pulmonary and Critical Care Medicine 04/21/24 Commercial Relief Driver Relationship Specialty Start Date End Date Hoda Del Rosario MD [address] [place] [address] PCP - General Family Medicine 10/02/23 Heri Tabor MD [address] [place] [address] Pulmonary and Critical Care Medicine 04/21/24 Commercial Relief Driver Relationship Specialty Start Date End Date Hoda Del Rosario MD [address] [place] [address] PCP - General Family Medicine 10/02/23 Heri Tabor MD [address] [place] [address] Pulmonary and Critical Care Medicine 04/21/24 Commercial Relief Driver Relationship Specialty Start Date End Date Hoda Del Rosario MD [address] [place] [address] PCP - General Family Medicine 10/02/23 Heri Tabor MD [address] [place] [address] Pulmonary and Critical Care Medicine 04/21/24 Amol Godwin MD [address] [place] [address] Pulmonary and Critical Care Medicine 06/26/24 Commercial Relief Driver Relationship Specialty Start Date End Date Hoda Del Rosario MD [address] [place] [address] PCP - General Family Medicine 10/02/23 Heri Tabor MD [address] [place] [address] Pulmonary and Critical Care Medicine 04/21/24 Amol Godwin MD [address] [place] [address] Pulmonary and Critical Care Medicine 06/26/24 Commercial Relief Driver Relationship Specialty Start Date End Date Hoda Del Rosario MD [address] [address] PCP - General Family Medicine 10/02/23 Heri Tabor MD [address] [place] [address] Pulmonary and Critical Care Medicine 04/21/24 Amol Godwin MD [address] [place] [address] Pulmonary and Critical Care Medicine 06/26/24 Commercial Relief Driver Relationship Specialty Start Date End Date Hoda Del Rosario MD [address] [address] PCP - General Family Medicine 10/02/23 Heri Tabor MD [address] [place] [address] [facility] 04/21/24 Amol Godwin MD [address] [place] [address] [facility] 06/26/24 Team Status: Active Member Role Status Dates Dr. Hoda Del Rosario MD Primary Care Provider Active Team Status: Inactive Member Role Status Dates Dr. Hoda Del Rosario MD Primary Care Provider Active Start: April 22, 2024 End: April 22, 2024 Dr. Hoda Del Rosario MD Attending Provider Active Start: April 22, 2024 End: April 22, 2024 Dr. Hoda Del Rosario MD Referring Provider Active Start: April 22, 2024 End: April 22, 2024 Team Status: Inactive Member Role Status Dates Dr. Hoda Del Rosario MD Primary Care Provider Active Start: April 30, 2024 End: April 30, 2024 Dr. Hoda Del Rosario MD Referring Provider Active Start: April 30, 2024 End: April 30, 2024 Dr. John Wheatley MD Attending Provider Active Start: April 30, 2024 End: April 30, 2024 Team Status: Inactive Member Role Status Dates Dr. Hoda Del Rosario MD Primary Care Provider Active Start: May 19, 2024 End: May 19, 2024 Dr. Hoda Del Rosario MD Attending Provider Active Start: May 19, 2024 End: May 19, 2024 Dr. Hoda Del Rosario MD Referring Provider Active Start: May 19, 2024 End: May 19, 2024 Team Status: Inactive Member Role Status Dates Dr. Hoda Del Rosario MD Primary Care Provider Active Start: June 28, 2024 End: July 06, 2024 Dr. Eddie Putnam DO Emergency Provider Active Start: June 28, 2024 End: July 06, 2024 Dr. Ángel Amanda DO Admit Provider Active Start: June 28, 2024 End: July 06, 2024 Dr. Ángel Amanda DO Other Provider Active Start: June 28, 2024 End: July 06, 2024 Dr. Dallin Galdamez MD Other Provider Active Start: June 28, 2024 End: July 06, 2024 Dr. Mike Washington MD Other Provider Active Start: June 28, 2024 End: July 06, 2024 Dr. Kelvin Bennett MD Other Provider Active Star t: June 28, 2024 End: July 06, 2024 Dr. Kamari Shi DO Other Provider Active Start : June 28, 2024 End: July 06, 2024 Dr. Kory Vaca MD Other Provider Active Sta rt: June 28, 2024 End: July 06, 2024 Dr. Alejandro Bass MD Other Provider Active St art: June 28, 2024 End: July 06, 2024 Dr. James Paredes MD Other Provider Active S tart: June 28, 2024 End: July 06, 2024 Dr. Suzan Mccormick MD Other Provider Active Start: June 28, 2024 End: July 06, 2024 Dr. Emigdio Spain MD Other Provider Active Start : June 28, 2024 End: July 06, 2024 Dr. Darius Sepulveda MD Other Provider Active Start: June 28, 2024 End: July 06, 2024 Dr. Rob Solorio MD Other Provider Active Start : June 28, 2024 End: July 06, 2024 Dr. Katherin Meeks MD Other Provider Active Star t: June 28, 2024 End: July 06, 2024 Dr. Urban June MD Other Provider Active Sta rt: June 28, 2024 End: July 06, 2024 Dr. Constance Mason MD Other Provider Active Sta rt: June 28, 2024 End: July 06, 2024 Dr. Elpidio Maciel MD Other Provider Active Star t: June 28, 2024 End: July 06, 2024 Dr. Estiven Gonzalez MD Other Provider Active St art: June 28, 2024 End: July 06, 2024 Dr. Herrera Saleh MD Other Provider Active Star t: June 28, 2024 End: July 06, 2024 Dr. Brayan Luis DO Other Provider Active St art: June 28, 2024 End: July 06, 2024 Dr. Poonam Hale MD Other Provider Active Start: June 28, 2024 End: July 06, 2024 Dr. Bala Jennings MD Other Provider Active St art: June 28, 2024 End: July 06, 2024 Dr. Ryan Huitron , Other Provider Active Start: June 28, 2024 End: July 06, 2024 Dr. Norman Murillo MD Other Provider Active Star t: June 28, 2024 End: July 06, 2024 Dr. Luther Murray MD Other Provider Active Sta rt: June 28, 2024 End: July 06, 2024 Dr. Mamta Zavala MD Attending Provider Active Start: June 28, 2024 End: July 06, 2024 Dr. Silvestre Suero DO Other Provider Active S tart: June 28, 2024 End: July 06, 2024 Team Status: Active Member Role Status Dates Dr. Hoda Del Rosario MD Primary Care Provider Active Start: June 29, 2024 Dr. Eddie Putnam DO Emergency Provider Active Start: June 29, 2024 Dr. Ángel Amanda DO Admit Provider Active Start: June 29, 2024 Dr. Ángel Amanda DO Other Provider Active Start: June 29, 2024 Dr. Silvestre Suero DO Attending Provider Active Start: June 29, 2024 Dr. Silvestre Suero DO Other Provider Active S tart: June 29, 2024 Dr. Dallin Galdamez MD Other Provider Active Start: June 29, 2024 Dr. Mike Washington MD Other Provider Active Start: June 29, 2024 Dr. Kelvin Bennett MD Other Provider Active Star t: June 29, 2024 Dr. Kamari Shi DO Other Provider Active Start : June 29, 2024 Dr. Kory Vaca MD Other Provider Active Sta rt: June 29, 2024 Dr. Alejandro Bass MD Other Provider Active St art: June 29, 2024 Dr. James Paredes MD Other Provider Active S tart: June 29, 2024 Dr. Suzan Mccormick MD Other Provider Active Start: June 29, 2024 Dr. Emigdio Spain MD Other Provider Active Start : June 29, 2024 Dr. Darius Sepulveda MD Other Provider Active Start: June 29, 2024 Dr. Rob Solorio MD Other Provider Active Start : June 29, 2024 Dr. Katherin Meeks MD Other Provider Active Star t: June 29, 2024 Dr. Urban June MD Other Provider Active Sta rt: June 29, 2024 Dr. Constance Mason MD Other Provider Active Sta rt: June 29, 2024 Dr. Elpidio Maciel MD Other Provider Active Star t: June 29, 2024 Dr. Estiven Gonzalez MD Other Provider Active St art: June 29, 2024 Dr. Herrera Saleh MD Other Provider Active Star t: June 29, 2024 Dr. Brayan Luis , Other Provider Active St art: June 29, 2024 Dr. Poonam Hale MD Other Provider Active Start: June 29, 2024 Dr. Bala Jennings MD Other Provider Active St art: June 29, 2024 Dr. Ryan Huitron DO Other Provider Active Start: June 29, 2024 Dr. Norman Murillo MD Other Provider Active Star t: June 29, 2024 Dr. Luther Murray MD Other Provider Active Sta rt: June 29, 2024 Team Status: Active Member Role Status Dates Dr. Hoda Del Rosario MD Primary Care Provider Active Start: June 30, 2024 Dr. Eddie Putnam DO Emergency Provider Active Start: June 30, 2024 Dr. Ángel Amanda DO Admit Provider Active Start: June 30, 2024 Dr. Ángel Amanda DO Other Provider Active Start: June 30, 2024 Dr. Dallin Galdamez MD Other Provider Active Start: June 30, 2024 Dr. Mike Washington MD Other Provider Active Start: June 30, 2024 Dr. Kelvin Bennett MD Other Provider Active Star t: June 30, 2024 Dr. Kamari Shi DO Other Provider Active Start : June 30, 2024 Dr. Kory Vaca MD Other Provider Active Sta rt: June 30, 2024 Dr. Alejandro Bass MD Other Provider Active St art: June 30, 2024 Dr. James Paredes MD Other Provider Active S tart: June 30, 2024 Dr. Suzan Mccormick MD Other Provider Active Start: June 30, 2024 Dr. Emigdio Spain MD Other Provider Active Start : June 30, 2024 Dr. Darius Sepulveda MD Other Provider Active Start: June 30, 2024 Dr. Rob Solorio MD Other Provider Active Start : June 30, 2024 Dr. Katherin Meeks MD Other Provider Active Star t: June 30, 2024 Dr. Urban June MD Other Provider Active Sta rt: June 30, 2024 Dr. Constance Mason MD Other Provider Active Sta rt: June 30, 2024 Dr. Elpidio Maciel MD Other Provider Active Star t: June 30, 2024 Dr. Estiven Gonzalez MD Other Provider Active St art: June 30, 2024 Dr. Herrera Saleh MD Other Provider Active Star t: June 30, 2024 Dr. Brayan Luis , Other Provider Active St art: June 30, 2024 Dr. Poonam Hale MD Other Provider Active Start: June 30, 2024 Dr. Bala Jennings MD Other Provider Active St art: June 30, 2024 Dr. Ryan Huitron DO Other Provider Active Start: June 30, 2024 Dr. Norman Murillo MD Other Provider Active Star t: June 30, 2024 Dr. Luther Murray MD Other Provider Active Sta rt: June 30, 2024 Dr. Mamta Zavala MD Attending Provider Active Start: June 30, 2024 Dr. Mamta Zavala MD Other Provider Active St art: June 30, 2024 Dr. Silvestre Suero DO Other Provider Active S tart: June 30, 2024 Team Status: Active Member Role Status Dates Dr. Hoda Del Rosario MD Primary Care Provider Active Start: July 01, 2024 Dr. Eddie Putnam , Emergency Provider Active Start: July 01, 2024 Dr. Ángel Amanda DO Admit Provider Active Start: July 01, 2024 Dr. Ángel Amanda DO Other Provider Active Start: July 01, 2024 Dr. Dallin Galdamez MD Other Provider Active Start: July 01, 2024 Dr. Mike Washington MD Other Provider Active Start: July 01, 2024 Dr. Kelvin Bennett MD Other Provider Active Star t: July 01, 2024 Dr. Kamari Shi , Other Provider Active Start : July 01, 2024 Dr. Kory Vaca MD Other Provider Active Sta rt: July 01, 2024 Dr. Alejandro Bass MD Other Provider Active St art: July 01, 2024 Dr. James Paredes MD Other Provider Active S tart: July 01, 2024 Dr. Suzan Mccormick MD Other Provider Active Start: July 01, 2024 Dr. Emigdio Spain MD Other Provider Active Start : July 01, 2024 Dr. Darius Sepulveda MD Other Provider Active Start: July 01, 2024 Dr. Rob Solorio MD Other Provider Active Start : July 01, 2024 Dr. Katherin Meeks MD Other Provider Active Star t: July 01, 2024 Dr. Urban June MD Other Provider Active Sta rt: July 01, 2024 Dr. Constance Mason MD Other Provider Active Sta rt: July 01, 2024 Dr. Elpidio Maciel MD Other Provider Active Star t: July 01, 2024 Dr. Estiven Gonzalez MD Other Provider Active St art: July 01, 2024 Dr. Herrera Saleh MD Other Provider Active Star t: July 01, 2024 Dr. Brayan Luis , Other Provider Active St art: July 01, 2024 Dr. Poonam Hale MD Other Provider Active Start: July 01, 2024 Dr. Bala Jennings MD Other Provider Active St art: July 01, 2024 Dr. Ryan Huitron DO Other Provider Active Start: July 01, 2024 Dr. Norman Murillo MD Other Provider Active Star t: July 01, 2024 Dr. Luther Murray MD Other Provider Active Sta rt: July 01, 2024 Dr. Mamta Zavala MD Attending Provider Active Start: July 01, 2024 Dr. Mamta Zavala MD Other Provider Active St art: July 01, 2024 Dr. Silvestre Suero , Other Provider Active S tart: July 01, 2024 Team Status: Active Member Role Status Dates Dr. Hoda Del Rosario MD Primary Care Provider Active Start: July 01, 2024 Dr. Eddie Putnam , Emergency Provider Active Start: July 01, 2024 Dr. Ángel Amanda , Admit Provider Active Start: July 01, 2024 Dr. Ángel Amanda DO Other Provider Active Start: July 01, 2024 Dr. Dallin aGldamez MD Other Provider Active Start: July 01, 2024 Dr. Mike Washington MD Other Provider Active Start: July 01, 2024 Dr. Kelvin Bennett MD Other Provider Active Star t: July 01, 2024 Dr. Kamari Shi DO Attending Provider Active S tart: July 01, 2024 Dr. Kamari Shi DO Other Provider Active Start : July 01, 2024 Dr. Kory Vaca MD Other Provider Active Sta rt: July 01, 2024 Dr. Alejandro Bass MD Other Provider Active St art: July 01, 2024 Dr. James Paredes MD Other Provider Active S tart: July 01, 2024 Dr. Suzan Mccormick MD Other Provider Active Start: July 01, 2024 Dr. Emigdio Spain MD Other Provider Active Start : July 01, 2024 Dr. Darius Sepulveda MD Other Provider Active Start: July 01, 2024 Dr. Rob Solorio MD Other Provider Active Start : July 01, 2024 Dr. Katherin Meeks MD Other Provider Active Star t: July 01, 2024 Dr. Urban June MD Other Provider Active Sta rt: July 01, 2024 Dr. Constance Mason MD Other Provider Active Sta rt: July 01, 2024 Dr. Elpidio Maciel MD Other Provider Active Star t: July 01, 2024 Dr. Estiven Gonzalez MD Other Provider Active St art: July 01, 2024 Dr. Herrera Saleh MD Other Provider Active Star t: July 01, 2024 Dr. Brayan Luis DO Other Provider Active St art: July 01, 2024 Dr. Poonam Hale MD Other Provider Active Start: July 01, 2024 Dr. Bala Jennings MD Other Provider Active St art: July 01, 2024 Dr. Ryan Huitron DO Other Provider Active Start: July 01, 2024 Dr. Norman Murillo MD Other Provider Active Star t: July 01, 2024 Dr. Luther Murray MD Other Provider Active Sta rt: July 01, 2024 Dr. Mamta Zavala MD Referring Provider Active Start: July 01, 2024 Dr. Mamta Zavala MD Other Provider Active St art: July 01, 2024 Dr. Silvestre Suero , DO Other Provider Active S tart: July 01, 2024 Team Status: Active Member Role Status Dates Dr. Hoda Del Rosario MD Primary Care Provider Active Start: July 02, 2024 Dr. Eddie Putnam , Emergency Provider Active Start: July 02, 2024 Dr. Ángel Amanda , DO Admit Provider Active Start: July 02, 2024 Dr. Ángel Amanda , DO Other Provider Active Start: July 02, 2024 Dr. Dallin Galdamez MD Other Provider Active Start: July 02, 2024 Dr. Mike Washington MD Other Provider Active Start: July 02, 2024 Dr. Kelvin Bennett MD Other Provider Active Star t: July 02, 2024 Dr. Kamari Shi , Other Provider Active Start : July 02, 2024 Dr. Kory Vaca MD Other Provider Active Sta rt: July 02, 2024 Dr. Alejandro Bass MD Other Provider Active St art: July 02, 2024 Dr. James Paredes MD Other Provider Active S tart: July 02, 2024 Dr. Suzan Mccormick MD Other Provider Active Start: July 02, 2024 Dr. Emigdio Spain MD Other Provider Active Start : July 02, 2024 Dr. Darius Sepulveda MD Other Provider Active Start: July 02, 2024 Dr. Rob Solorio MD Other Provider Active Start : July 02, 2024 Dr. Katherin Meeks MD Other Provider Active Star t: July 02, 2024 Dr. Urban June MD Other Provider Active Sta rt: July 02, 2024 Dr. Constance Mason MD Other Provider Active Sta rt: July 02, 2024 Dr. Elpidio Maciel MD Other Provider Active Star t: July 02, 2024 Dr. Estiven Gonzalez MD Other Provider Active St art: July 02, 2024 Dr. Herrera Saleh MD Other Provider Active Star t: July 02, 2024 Dr. Brayan Luis DO Other Provider Active St art: July 02, 2024 Dr. Poonam Hale MD Other Provider Active Start: July 02, 2024 Dr. Bala Jennings MD Other Provider Active St art: July 02, 2024 Dr. Ryan Huitron , Other Provider Active Start: July 02, 2024 Dr. Norman Murillo MD Other Provider Active Star t: July 02, 2024 Dr. Luther Murray MD Other Provider Active Sta rt: July 02, 2024 Dr. Mamta Zavala MD Attending Provider Active Start: July 02, 2024 Dr. Mamta Zavala MD Other Provider Active St art: July 02, 2024 Dr. Silvestre Suero , Other Provider Active S tart: July 02, 2024 Team Status: Active Member Role Status Dates Dr. Hoda Del Rosario MD Primary Care Provider Active Start: July 02, 2024 Dr. Eddie Putnam DO Emergency Provider Active Start: July 02, 2024 Dr. Ángel Amanda DO Admit Provider Active Start: July 02, 2024 Dr. Ángel Amanda DO Other Provider Active Start: July 02, 2024 Dr. Dallin Galdamez MD Other Provider Active Start: July 02, 2024 Dr. Mike Washington MD Other Provider Active Start: July 02, 2024 Dr. Kelvin Bennett MD Other Provider Active Star t: July 02, 2024 Dr. Kamari Shi DO Attending Provider Active S tart: July 02, 2024 Dr. Kamari Shi DO Other Provider Active Start : July 02, 2024 Dr. Kory Vaca MD Other Provider Active Sta rt: July 02, 2024 Dr. Alejandro Bass MD Other Provider Active St art: July 02, 2024 Dr. James Paredes MD Other Provider Active S tart: July 02, 2024 Dr. Suzan Mccormick MD Other Provider Active Start: July 02, 2024 Dr. Emigdio Spain MD Other Provider Active Start : July 02, 2024 Dr. Darius Sepulveda MD Other Provider Active Start: July 02, 2024 Dr. Rob Solorio MD Other Provider Active Start : July 02, 2024 Dr. Katherin Meeks MD Other Provider Active Star t: July 02, 2024 Dr. Urban June MD Other Provider Active Sta rt: July 02, 2024 Dr. Consatnce Mason MD Other Provider Active Sta rt: July 02, 2024 Dr. Elpidio Maciel MD Other Provider Active Star t: July 02, 2024 Dr. Estiven Gonzalez MD Other Provider Active St art: July 02, 2024 Dr. Herrera Saleh MD Other Provider Active Star t: July 02, 2024 Dr. Brayan Luis , Other Provider Active St art: July 02, 2024 Dr. Poonam Hale MD Other Provider Active Start: July 02, 2024 Dr. Bala Jennings MD Other Provider Active St art: July 02, 2024 Dr. Ryan Huitron , Other Provider Active Start: July 02, 2024 Dr. Norman Murillo MD Other Provider Active Star t: July 02, 2024 Dr. Luther Murray MD Other Provider Active Sta rt: July 02, 2024 Dr. Mamta Zavala MD Referring Provider Active Start: July 02, 2024 Dr. Mamta Zavala MD Other Provider Active St art: July 02, 2024 Dr. Silvestre Suero , Other Provider Active S tart: July 02, 2024 Team Status: Active Member Role Status Dates Dr. Hoda Del Rosario MD Primary Care Provider Active Start: July 03, 2024 Dr. Eddie Putnam DO Emergency Provider Active Start: July 03, 2024 Dr. Ángel Amanda DO Admit Provider Active Start: July 03, 2024 Dr. Ángel Amanda DO Other Provider Active Start: July 03, 2024 Dr. Dallin Galdamez MD Other Provider Active Start: July 03, 2024 Dr. Mike Washington MD Other Provider Active Start: July 03, 2024 Dr. Kelvin Bennett MD Other Provider Active Star t: July 03, 2024 Dr. Kamari Shi DO Attending Provider Active S tart: July 03, 2024 Dr. Kamari Shi DO Other Provider Active Start : July 03, 2024 Dr. Kory Vaca MD Other Provider Active Sta rt: July 03, 2024 Dr. Alejandro Bass MD Other Provider Active St art: July 03, 2024 Dr. James Paredes MD Other Provider Active S tart: July 03, 2024 Dr. Suzan Mccormick MD Other Provider Active Start: July 03, 2024 Dr. Emigdio Spain MD Other Provider Active Start : July 03, 2024 Dr. Darius Sepulveda MD Other Provider Active Start: July 03, 2024 Dr. Rob Solorio MD Other Provider Active Start : July 03, 2024 Dr. Katherin Meeks MD Other Provider Active Star t: July 03, 2024 Dr. Urban June MD Other Provider Active Sta rt: July 03, 2024 Dr. Constance Mason MD Other Provider Active Sta rt: July 03, 2024 Dr. Elpidio Maciel MD Other Provider Active Star t: July 03, 2024 Dr. Estiven Gonzalez MD Other Provider Active St art: July 03, 2024 Dr. Herrera Saleh MD Other Provider Active Star t: July 03, 2024 Dr. Brayan Luis , Other Provider Active St art: July 03, 2024 Dr. Poonam Hale MD Other Provider Active Start: July 03, 2024 Dr. Bala Jennings MD Other Provider Active St art: July 03, 2024 Dr. Ryan Huitron DO Other Provider Active Start: July 03, 2024 Dr. Norman Murillo MD Other Provider Active Star t: July 03, 2024 Dr. Luther Murray MD Other Provider Active Sta rt: July 03, 2024 Dr. Mamta Zavala MD Referring Provider Active Start: July 03, 2024 Dr. Mamta Zavala MD Other Provider Active St art: July 03, 2024 Dr. Silvestre Suero DO Other Provider Active S tart: July 03, 2024 Team Status: Active Member Role Status Dates Dr. Hoda Del Rosario MD Primary Care Provider Active Start: July 03, 2024 Dr. Eddie Putnam DO Emergency Provider Active Start: July 03, 2024 Dr. Ángel Amanda DO Admit Provider Active Start: July 03, 2024 Dr. Ángel Amanda DO Other Provider Active Start: July 03, 2024 Dr. Dallin Galdamez MD Other Provider Active Start: July 03, 2024 Dr. Mike Washington MD Other Provider Active Start: July 03, 2024 Dr. Kelvin Bennett MD Other Provider Active Star t: July 03, 2024 Dr. Kamari Shi DO Other Provider Active Start : July 03, 2024 Dr. Kory Vaca MD Other Provider Active Sta rt: July 03, 2024 Dr. Alejandro Bass MD Other Provider Active St art: July 03, 2024 Dr. James Paredes MD Other Provider Active S tart: July 03, 2024 Dr. Suzan Mccormick MD Other Provider Active Start: July 03, 2024 Dr. Emigdio Spain MD Other Provider Active Start : July 03, 2024 Dr. Darius Sepulveda MD Other Provider Active Start: July 03, 2024 Dr. Rob Solorio MD Other Provider Active Start : July 03, 2024 Dr. Katherin Meeks MD Other Provider Active Star t: July 03, 2024 Dr. Urban June MD Other Provider Active Sta rt: July 03, 2024 Dr. Constance Mason MD Other Provider Active Sta rt: July 03, 2024 Dr. Elpidio Maciel MD Other Provider Active Star t: July 03, 2024 Dr. Estiven Gonzalez MD Other Provider Active St art: July 03, 2024 Dr. Herrera Saleh MD Other Provider Active Star t: July 03, 2024 Dr. Brayan Luis , Other Provider Active St art: July 03, 2024 Dr. Poonam Hale MD Other Provider Active Start: July 03, 2024 Dr. Bala Jennings MD Other Provider Active St art: July 03, 2024 Dr. Ryan Huitron , Other Provider Active Start: July 03, 2024 Dr. Norman Murillo MD Other Provider Active Star t: July 03, 2024 Dr. Luther Murray MD Other Provider Active Sta rt: July 03, 2024 Dr. Mamta Zavala MD Attending Provider Active Start: July 03, 2024 Dr. Mamta Zavala MD Other Provider Active St art: July 03, 2024 Dr. Silvestre Suero DO Other Provider Active S tart: July 03, 2024 Team Status: Active Member Role Status Dates Dr. Hoda Del Rosario MD Primary Care Provider Active Start: July 04, 2024 Dr. Eddie Putnam , Emergency Provider Active Start: July 04, 2024 Dr. Ángel Amanda , Admit Provider Active Start: July 04, 2024 Dr. Ángel Amanda DO Other Provider Active Start: July 04, 2024 Dr. Dallin Galdamez MD Other Provider Active Start: July 04, 2024 Dr. Mike Washington MD Other Provider Active Start: July 04, 2024 Dr. Kelvin Bennett MD Other Provider Active Star t: July 04, 2024 Dr. Kamari Shi , Attending Provider Active S tart: July 04, 2024 Dr. Kamari Shi DO Other Provider Active Start : July 04, 2024 Dr. Kory Vaca MD Other Provider Active Sta rt: July 04, 2024 Dr. Alejandro Bass MD Other Provider Active St art: July 04, 2024 Dr. James Paredes MD Other Provider Active S tart: July 04, 2024 Dr. Suzan Mccormick MD Other Provider Active Start: July 04, 2024 Dr. Emigdio Spain MD Other Provider Active Start : July 04, 2024 Dr. Darius Sepulveda MD Other Provider Active Start: July 04, 2024 Dr. Rob Solorio MD Other Provider Active Start : July 04, 2024 Dr. Katherin Meeks MD Other Provider Active Star t: July 04, 2024 Dr. Urban June MD Other Provider Active Sta rt: July 04, 2024 Dr. Constance Mason MD Other Provider Active Sta rt: July 04, 2024 Dr. Elpidio Maciel MD Other Provider Active Star t: July 04, 2024 Dr. Estiven Gonzalez MD Other Provider Active St art: July 04, 2024 Dr. Herrera Saleh MD Other Provider Active Star t: July 04, 2024 Dr. Brayan Luis DO Other Provider Active St art: July 04, 2024 Dr. Poonam Hale MD Other Provider Active Start: July 04, 2024 Dr. Bala Jennings MD Other Provider Active St art: July 04, 2024 Dr. Ryan Huitron DO Other Provider Active Start: July 04, 2024 Dr. Norman Mruillo MD Other Provider Active Star t: July 04, 2024 Dr. Luther Murray MD Other Provider Active Sta rt: July 04, 2024 Dr. Mamta Zavala MD Referring Provider Active Start: July 04, 2024 Dr. Mamta Zavala MD Other Provider Active St art: July 04, 2024 Dr. Silvestre Suero DO Other Provider Active S tart: July 04, 2024 Team Status: Active Member Role Status Dates Dr. Hoda Del Rosario MD Primary Care Provider Active Start: July 04, 2024 Dr. Eddie Putnam DO Emergency Provider Active Start: July 04, 2024 Dr. Ángel Amanda DO Admit Provider Active Start: July 04, 2024 Dr. Ángel Amanda DO Other Provider Active Start: July 04, 2024 Dr. Dallin Galdamez MD Other Provider Active Start: July 04, 2024 Dr. Mike Washington MD Other Provider Active Start: July 04, 2024 Dr. Kelvin Bennett MD Other Provider Active Star t: July 04, 2024 Dr. Kamari Shi , Other Provider Active Start : July 04, 2024 Dr. Kory Vaca MD Other Provider Active Sta rt: July 04, 2024 Dr. Alejandro Bass MD Other Provider Active St art: July 04, 2024 Dr. James Paredes MD Other Provider Active S tart: July 04, 2024 Dr. Suzan Mccormick MD Other Provider Active Start: July 04, 2024 Dr. Emigdio Spain MD Other Provider Active Start : July 04, 2024 Dr. Darius Sepulveda MD Other Provider Active Start: July 04, 2024 Dr. Rob Solorio MD Other Provider Active Start : July 04, 2024 Dr. Katherin Meeks MD Other Provider Active Star t: July 04, 2024 Dr. Urban June MD Other Provider Active Sta rt: July 04, 2024 Dr. Constance Mason MD Other Provider Active Sta rt: July 04, 2024 Dr. Elpidio Maciel MD Other Provider Active Star t: July 04, 2024 Dr. Estiven Gonzalez MD Other Provider Active St art: July 04, 2024 Dr. Herrera Saleh MD Other Provider Active Star t: July 04, 2024 Dr. Brayan Luis , Other Provider Active St art: July 04, 2024 Dr. Poonam Hale MD Other Provider Active Start: July 04, 2024 Dr. Bala Jennings MD Other Provider Active St art: July 04, 2024 Dr. Ryan Huitron DO Other Provider Active Start: July 04, 2024 Dr. Norman Murillo MD Other Provider Active Star t: July 04, 2024 Dr. Luther Murray MD Other Provider Active Sta rt: July 04, 2024 Dr. Mamta Zavala MD Attending Provider Active Start: July 04, 2024 Dr. Mamta Zavala MD Other Provider Active St art: July 04, 2024 Dr. Silvestre Suero , Other Provider Active S tart: July 04, 2024 Team Status: Active Member Role Status Dates Dr. Hoda Del Rosario MD Primary Care Provider Active Start: July 05, 2024 Dr. Eddie Putnam DO Emergency Provider Active Start: July 05, 2024 Dr. Ángel Amanda DO Admit Provider Active Start: July 05, 2024 Dr. Ángel Amanda DO Other Provider Active Start: July 05, 2024 Dr. Dallin Galdamez MD Other Provider Active Start: July 05, 2024 Dr. Mike Washington MD Other Provider Active Start: July 05, 2024 Dr. Kelvin Bennett MD Other Provider Active Star t: July 05, 2024 Dr. Kamari Shi DO Other Provider Active Start : July 05, 2024 Dr. Kory Vaca MD Other Provider Active Sta rt: July 05, 2024 Dr. Alejandro Bass MD Other Provider Active St art: July 05, 2024 Dr. James Paredes MD Other Provider Active S tart: July 05, 2024 Dr. Suzan Mccormick MD Other Provider Active Start: July 05, 2024 Dr. Emigdio Spain MD Other Provider Active Start : July 05, 2024 Dr. Darius Sepulveda MD Other Provider Active Start: July 05, 2024 Dr. Rob Solorio MD Other Provider Active Start : July 05, 2024 Dr. Katherin Meeks MD Other Provider Active Star t: July 05, 2024 Dr. Urban June MD Other Provider Active Sta rt: July 05, 2024 Dr. Constance Mason MD Other Provider Active Sta rt: July 05, 2024 Dr. Elpidio Maciel MD Other Provider Active Star t: July 05, 2024 Dr. Estiven Gonzalez MD Other Provider Active St art: July 05, 2024 Dr. Herrera Saleh MD Other Provider Active Star t: July 05, 2024 Dr. Brayan Luis , DO Other Provider Active St art: July 05, 2024 Dr. Poonam Hale MD Other Provider Active Start: July 05, 2024 Dr. Bala Jennings MD Other Provider Active St art: July 05, 2024 Dr. Ryan Huitron , Other Provider Active Start: July 05, 2024 Dr. Norman Murillo MD Other Provider Active Star t: July 05, 2024 Dr. Luther Murray MD Other Provider Active Sta rt: July 05, 2024 Dr. Mamta Zavala MD Attending Provider Active Start: July 05, 2024 Dr. Mamta Zavala MD Other Provider Active St art: July 05, 2024 Dr. Silvestre Suero , Other Provider Active S tart: July 05, 2024 Team Status: Active Member Role Status Dates Dr. Hoda Del Rosario MD Primary Care Provider Active Start: July 06, 2024 Dr. Eddie Putnam , Emergency Provider Active Start: July 06, 2024 Dr. Ángel Amanda DO Admit Provider Active Start: July 06, 2024 Dr. Ángel Amanda DO Other Provider Active Start: July 06, 2024 Dr. Dallin Galdamez MD Other Provider Active Start: July 06, 2024 Dr. Mike Washington MD Other Provider Active Start: July 06, 2024 Dr. Kelvin Bennett MD Other Provider Active Star t: July 06, 2024 Dr. Kamari Shi , Other Provider Active Start : July 06, 2024 Dr. Kory Vaca MD Other Provider Active Sta rt: July 06, 2024 Dr. Alejandro Bass MD Other Provider Active St art: July 06, 2024 Dr. James Paredes MD Other Provider Active S tart: July 06, 2024 Dr. Suzan Mccormick MD Other Provider Active Start: July 06, 2024 Dr. Emigdio Spain MD Other Provider Active Start : July 06, 2024 Dr. Darius Sepulveda MD Other Provider Active Start: July 06, 2024 Dr. Rob Solorio MD Other Provider Active Start : July 06, 2024 Dr. Katherin Meeks MD Other Provider Active Star t: July 06, 2024 Dr. Urban June MD Other Provider Active Sta rt: July 06, 2024 Dr. Constance Mason MD Other Provider Active Sta rt: July 06, 2024 Dr. Elpidio Maciel MD Other Provider Active Star t: July 06, 2024 Dr. Estiven Gonzalez MD Other Provider Active St art: July 06, 2024 Dr. Herrera Saleh MD Other Provider Active Star t: July 06, 2024 Dr. Brayan Luis , Other Provider Active St art: July 06, 2024 Dr. Poonam Hale MD Other Provider Active Start: July 06, 2024 Dr. Bala Jennings MD Other Provider Active St art: July 06, 2024 Dr. Ryan Huitron , Other Provider Active Start: July 06, 2024 Dr. Norman Murillo MD Other Provider Active Star t: July 06, 2024 Dr. Luther Murray MD Other Provider Active Sta rt: July 06, 2024 Dr. Mamta Zavala MD Attending Provider Active Start: July 06, 2024 Dr. Mamta Zavala MD Other Provider Active St art: July 06, 2024 Dr. Silvestre Suero , Other Provider Active S tart: July 06, 2024 Team Status: Inactive Member Role Status Dates Dr. Hoda Del Rosario MD Primary Care Provider Active Start: July 17, 2024 End: July 17, 2024 Dr. Hoda Del Rosario MD Attending Provider Active Start: July 17, 2024 End: July 17, 2024 Team Status: Inactive Member Role Status Dates Dr. Hoda Del Rosario MD Primary Care Provider Active Start: September 04, 2024 End: September 04, 2024 Out of Town Doctor Attending Provider Active Sta rt: September 04, 2024 End: September 04, 2024 Out of Town Doctor Referring Provider Active Sta rt: September 04, 2024 End: September 04, 2024 Team Status: Active Member Role Status Dates Dr. Hoda Del Rosario MD Primary Care Provider Active Start: September 08, 2024 Dr. Hoda Del Rosario MD Attending Provider Active Start: September 08, 2024 Dr. Hoda Del Rosario MD Referring Provider Active Start: September 08, 2024 Commercial Relief Driver Relationship Specialty Start Date End Date Hoda Del Rosario MD [address] [place] [address] PCP - General Family Medicine 10/02/23 Heri Tabor MD [address] [place] [address] [place] [id number] Pulmonary and Critical Care Medicine 04/21/24 Amol Godwin MD [address] [place] [address] Pulmonary and Critical Care Medicine 06/26/24 Commercial Relief Driver Relationship Specialty Start Date End Date Hoda Del Rosario MD [address] [place] [address] PCP - General Family Medicine 10/02/23 Hrei Tabor MD [address] [place] [address] [place] [id number] Pulmonary and Critical Care Medicine 04/21/24 Amol Godwin MD [address] [place] [address] Pulmonary and Critical Care Medicine 06/26/24 Commercial Relief Driver Relationship Specialty Start Date End Date Hoda Del Rosario MD [address] [address] PCP - General Family Medicine 10/02/23 Heri Tabor MD [address] [place] [address] Pulmonary and Critical Care Medicine 04/21/24 Amol Godwin MD [address] [place] [address] Pulmonary and Critical Care Medicine 06/26/24 Commercial Relief Driver Relationship Specialty Start Date End Date Hoda Del Rosario MD [address] [place] [address] PCP - General Family Medicine 10/02/23 Heri Tabor MD [address] [place] [address] Pulmonary and Critical Care Medicine 04/21/24 Amol Godwin MD [address] [place] [address] Pulmonary and Critical Care Medicine 06/26/24 Team Status: Inactive Member Role Status Dates Dr. Hoda Del Rosario MD Primary Care Provider Active Start: September 24, 2024 End: September 24, 2024 Dr. Hoda Del Rosario MD Attending Provider Active Start: September 24, 2024 End: September 24, 2024 Dr. Hoda Del Rosario MD Referring Provider Active Start: September 24, 2024 End: September 24, 2024 Team Status: Inactive Member Role Status Dates Dr. Hoda Del Rosario MD Primary Care Provider Active Start: October 24, 2024 End: October 25, 2024 Dr. Hoda Del Rosario MD Attending Provider Active Start: October 24, 2024 End: October 25, 2024 Dr. Hoda Del Rosario MD Referring Provider Active Start: October 24, 2024 End: October 25, 2024 Team Status: Active Member Role Status Dates Dr. Hoda Del Rosario MD Primary Care Provider Active Start: October 29, 2024 Dr. Hoda Del Rosario MD Attending Provider Active Start: October 29, 2024 Dr. Hoda Del Rosario MD Referring Provider Active Start: October 29, 2024 Team Status: Inactive Member Role Status Dates Dr. Hoda Del Rosario MD Primary Care Provider Active Start: October 29, 2024 End: October 29, 2024 Dr. Hoda Del Rosario MD Referring Provider Active Start: October 29, 2024 End: October 29, 2024 Dr. John Wheatley MD Attending Provider Active Start: October 29, 2024 End: October 29, 2024 Source Comments (unrecognize d section and content) In the event this informatio n is protected by the Federal Confidentiality of Alcohol and Drug Abuse Patient Records regulations: The Federal rules restrict any use of the information to criminally investigate or prosecute any alcohol or drug abuse patient.[facility] the event this information is protected by the Federal Confidentiality of Alcohol and Drug Abuse Patient Records regulations: The Federal rules restrict any use of the information to criminally investigate or prosecute any alcohol or drug abuse patient.[facility] HospitalIn the event this information is protected by the Federal Confidentiality of Alcohol and Drug Abuse Patient Records regulations: The Federal rules restrict any use of the information to criminally investigate or prosecute any alcohol or drug abuse patient.[facility] HospitalIn the event this information is protected by the Federal Confidentiality of Alcohol and Drug Abuse Patient Records regulations: The Federal rules restrict any use of the information to criminally investigate or prosecute any alcohol or drug abuse patient.[facility] HospitalIn the event this information is protected by the Federal Confidentiality of Alcohol and Drug Abuse Patient Records regulations: The Federal rules restrict any use of the information to criminally investigate or prosecute any alcohol or drug abuse patient.[facility] HospitalIn the event this information is protected by the Federal Confidentiality of Alcohol and Drug Abuse Patient Records regulations: The Federal rules restrict any use of the information to criminally investigate or prosecute any alcohol or drug abuse patient.[facility] HospitalIn the event this information is protected by the Federal Confidentiality of Alcohol and Drug Abuse Patient Records regulations: The Federal rules restrict any use of the information to criminally investigate or prosecute any alcohol or drug abuse patient.[facility] HospitalIn the event this information is protected by the Federal Confidentiality of Alcohol and Drug Abuse Patient Records regulations: The Federal rules restrict any use of the information to criminally investigate or prosecute any alcohol or drug abuse patient.[facility] HospitalIn the event this information is protected by the Federal Confidentiality of Alcohol and Drug Abuse Patient Records regulations: The Federal rules restrict any use of the information to criminally investigate or prosecute any alcohol or drug abuse patient.[facility] HospitalIn the event this information is protected by the Federal Confidentiality of Alcohol and Drug Abuse Patient Records regulations: The Federal rules restrict any use of the information to criminally investigate or prosecute any alcohol or drug abuse patient.[facility] HospitalIn the event this information is protected by the Federal Confidentiality of Alcohol and Drug Abuse Patient Records regulations: The Federal rules restrict any use of the information to criminally investigate or prosecute any alcohol or drug abuse patient.[facility] HospitalIn the event this information is protected by the Federal Confidentiality of Alcohol and Drug Abuse Patient Records regulations: The Federal rules restrict any use of the information to criminally investigate or prosecute any alcohol or drug abuse patient.[facility] HospitalIn the event this information is protected by the Federal Confidentiality of Alcohol and Drug Abuse Patient Records regulations: The Federal rules restrict any use of the information to criminally investigate or prosecute any alcohol or drug abuse patient.[facility] HospitalIn the event this information is protected by the Federal Confidentiality of Alcohol and Drug Abuse Patient Records regulations: The Federal rules restrict any use of the information to criminally investigate or prosecute any alcohol or drug abuse patient.[facility] HospitalIn the event this information is protected by the Federal Confidentiality of Alcohol and Drug Abuse Patient Records regulations: The Federal rules restrict any use of the information to criminally investigate or prosecute any alcohol or drug abuse patient.[facility] HospitalIn the event this information is protected by the Federal Confidentiality of Alcohol and Drug Abuse Patient Records regulations: The Federal rules restrict any use of the information to criminally investigate or prosecute any alcohol or drug abuse patient.[facility] HospitalIn the event this information is protected by the Federal Confidentiality of Alcohol and Drug Abuse Patient Records regulations: The Federal rules restrict any use of the information to criminally investigate or prosecute any alcohol or drug abuse patient.[facility] HospitalIn the event this information is protected by the Federal Confidentiality of Alcohol and Drug Abuse Patient Records regulations: The Federal rules restrict any use of the information to criminally investigate or prosecute any alcohol or drug abuse patient.[facility] HospitalIn the event this information is protected by the Federal Confidentiality of Alcohol and Drug Abuse Patient Records regulations: The Federal rules restrict any use of the information to criminally investigate or prosecute any alcohol or drug abuse patient.[facility] HospitalIn the event this information is protected by the Federal Confidentiality of Alcohol and Drug Abuse Patient Records regulations: The Federal rules restrict any use of the information to criminally investigate or prosecute any alcohol or drug abuse patient.[facility] HospitalIn the event this information is protected by the Federal Confidentiality of Alcohol and Drug Abuse Patient Records regulations: The Federal rules restrict any use of the information to criminally investigate or prosecute any alcohol or drug abuse patient.[facility] HospitalIn the event this information is protected by the Federal Confidentiality of Alcohol and Drug Abuse Patient Records regulations: The Federal rules restrict any use of the information to criminally investigate or prosecute any alcohol or drug abuse patient.[facility] HospitalIn the event this information is protected by the Federal Confidentiality of Alcohol and Drug Abuse Patient Records regulations: The Federal rules restrict any use of the information to criminally investigate or prosecute any alcohol or drug abuse patient.[facility] HospitalIn the event this information is protected by the Federal Confidentiality of Alcohol and Drug Abuse Patient Records regulations: The Federal rules restrict any use of the information to criminally investigate or prosecute any alcohol or drug abuse patient.[facility] HospitalIn the event this information is protected by the Federal Confidentiality of Alcohol and Drug Abuse Patient Records regulations: The Federal rules restrict any use of the information to criminally investigate or prosecute any alcohol or drug abuse patient.[facility] HospitalIn the event this information is protected by the Federal Confidentiality of Alcohol and Drug Abuse Patient Records regulations: The Federal rules restrict any use of the information to criminally investigate or prosecute any alcohol or drug abuse patient.[facility] HospitalIn the event this information is protected by the Federal Confidentiality of Alcohol and Drug Abuse Patient Records regulations: The Federal rules restrict any use of the information to criminally investigate or prosecute any alcohol or drug abuse patient.[facility] HospitalIn the event this information is protected by the Federal Confidentiality of Alcohol and Drug Abuse Patient Records regulations: The Federal rules restrict any use of the information to criminally investigate or prosecute any alcohol or drug abuse patient.[facility] HospitalIn the event this information is protected by the Federal Confidentiality of Alcohol and Drug Abuse Patient Records regulations: The Federal rules restrict any use of the information to criminally investigate or prosecute any alcohol or drug abuse patient.[facility] HospitalIn the event this information is protected by the Federal Confidentiality of Alcohol and Drug Abuse Patient Records regulations: The Federal rules restrict any use of the information to criminally investigate or prosecute any alcohol or drug abuse patient.[facility] HospitalIn the event this information is protected by the Federal Confidentiality of Alcohol and Drug Abuse Patient Records regulations: The Federal rules restrict any use of the information to criminally investigate or prosecute any alcohol or drug abuse patient.[facility] HospitalIn the event this information is protected by the Federal Confidentiality of Alcohol and Drug Abuse Patient Records regulations: The Federal rules restrict any use of the information to criminally investigate or prosecute any alcohol or drug abuse patient.[facility] HospitalIn the event this information is protected by the Federal Confidentiality of Alcohol and Drug Abuse Patient Records regulations: The Federal rules restrict any use of the information to criminally investigate or prosecute any alcohol or drug abuse patient.[facility] HospitalIn the event this information is protected by the Federal Confidentiality of Alcohol and Drug Abuse Patient Records regulations: The Federal rules restrict any use of the information to criminally investigate or prosecute any alcohol or drug abuse patient.[facility] HospitalIn the event this information is protected by the Federal Confidentiality of Alcohol and Drug Abuse Patient Records regulations: The Federal rules restrict any use of the information to criminally investigate or prosecute any alcohol or drug abuse patient.[facility] HospitalIn the event this information is protected by the Federal Confidentiality of Alcohol and Drug Abuse Patient Records regulations: The Federal rules restrict any use of the information to criminally investigate or prosecute any alcohol or drug abuse patient.[facility] HospitalIn the event this information is protected by the Federal Confidentiality of Alcohol and Drug Abuse Patient Records regulations: The Federal rules restrict any use of the information to criminally investigate or prosecute any alcohol or drug abuse patient.[facility] HospitalIn the event this information is protected by the Federal Confidentiality of Alcohol and Drug Abuse Patient Records regulations: The Federal rules restrict any use of the information to criminally investigate or prosecute any alcohol or drug abuse patient.[facility] HospitalIn the event this information is protected by the Federal Confidentiality of Alcohol and Drug Abuse Patient Records regulations: The Federal rules restrict any use of the information to criminally investigate or prosecute any alcohol or drug abuse patient.[facility] HospitalIn the event this information is protected by the Federal Confidentiality of Alcohol and Drug Abuse Patient Records regulations: The Federal rules restrict any use of the information to criminally investigate or prosecute any alcohol or drug abuse patient.[facility] HospitalIn the event this information is protected by the Federal Confidentiality of Alcohol and Drug Abuse Patient Records regulations: The Federal rules restrict any use of the information to criminally investigate or prosecute any alcohol or drug abuse patient.[facility] HospitalIn the event this information is protected by the Federal Confidentiality of Alcohol and Drug Abuse Patient Records regulations: The Federal rules restrict any use of the information to criminally investigate or prosecute any alcohol or drug abuse patient.[facility] HospitalIn the event this information is protected by the Federal Confidentiality of Alcohol and Drug Abuse Patient Records regulations: The Federal rules restrict any use of the information to criminally investigate or prosecute any alcohol or drug abuse patient.[facility] Reason for Visit (unrecogniz ed section and content) Reason Comments Consult Reason Comments Insurance Authorization TYVASO DPI Reason Comments Portable oxygen Reason Onset Date Comments Hospital Follow Up 10/08/2023 Reason Comments Shortness of Breath Reason Comments FYI-No Action Needed Reason Comments [place]-Chronic care referral Reason Comments Home Visit [facility] RN Visit for [facility]o Reason Comments Spirometry Specialty Diagnoses / Procedures Referred By Amalia duvall Referred [facility] Diagnoses Pulmonary HTN (HCC) ILD (interstitial lung disease) (HCC) Procedures OXIMETRY WITH AMBULATION NONINVASIVE EAR/PULSE OXIMETRY MULTIPLE DETER Amol Godwin MD [address] [place] [address] [facility] [place] [address] [place] [address] Referral ID Status Reason Start Date Expiration Date V isits Requested Visits Authorized [id number] Closed Auto-Generate d Referral 01/01/2024 05/27/2024 1 1 Specialty Diagnoses / Procedures Referred By Amalia duvall Referred To Contact [facility] Diagnoses ILD (interstitial lung disease) (HCC) Procedures LUNG VOLUMES Amol Godwin MD [address] [place] [address] [facility] [place] [address] [address] Referral ID Status Reason Start Date Expiration Date V isits Requested Visits Authorized [id number] Closed Auto-Generate d Referral 01/01/2024 05/27/2024 1 1 Specialty Diagnoses / Procedures Referred By Contac t Referred To Contact [facility] Diagnoses ILD (interstitial lung disease) (HCC) Procedures LUNG DIFFUSION CAPACITY (DLCO) DIFFUSING CAPACITY Amol Godwin MD [address] [place] [address] [place] [address] Referral ID Status Reason Start Date Expiration Date V isits Requested Visits Authorized [id number] Closed Auto-Generate d Referral 01/01/2024 05/27/2024 1 1 Specialty Diagnoses / Procedures Referred By Contac t Referred To [facility] Diagnoses ILD (interstitial lung disease) (HCC) Procedures SPIROMETRY - BASELINE AND POST DILATOR BRNCDILAT RSPSE SPMTRY PRE&POST-BRNCDILAT ADMN Amol Godwin MD [address] [place] [address] [place] [address] Referral ID Status Reason Start Date Expiration Date V isits Requested Visits Authorized [id number] Closed Auto-Generate d Referral 10/24/2023 11/22/2024 1 1 Reason Comments Follow Up Reason Comments Results Specialty Diagnoses / Procedures Referred By Contac t Referred To Contact [facility] Diagnoses ILD (interstitial lung disease) (HCC) Procedures SIX MINUTE WALK CARDIOPULMONARY EXERCISE STRESS Amol Godwin MD [address] [place] [address] Res[facility] [place] [id number] Referral ID Status Reason Start Date Expiration Date V isits Requested Visits Authorized [id number] Closed Auto-Generate d Referral 01/01/2024 05/27/2024 1 1 Reason Comments Sleep Apnea Reason Comments FYI-No Action Needed PAP supply order Specialty Diagnoses / Procedures Referred By Contac t Referred To Contact [facility] Diagnoses ILD (interstitial lung disease) (HCC) Interstitial pulmonary disease (HCC) Procedures CT CHEST WO IVCON DIAGNOSTIC COMPUTED TOMOGRAPHY THORAX W/O CNTRST Jason Macias APRN.U[employer]TER [employer]TER UP [address] [place] [address] [place] [address] Referral ID Status Reason Start Date Expiration Date V isits Requested Visits Authorized [id number] Closed Auto-Generate d Referral 02/25/2024 03/26/2025 1 1 Reason Comments Appointment Results Reason Comments New Patient Reason Comments Refill Request Reason Comments Patient Update Reason Comments Results Patient Update Reason Comments Recheck Reason Comments insurance authorization / Tyvaso Reason Comments Follow Up Follow up, ILD (inte rstitial lung disease Reason Onset Date Comments Prosthetic Makeup Designer - Other 09/30/2024 Reason Comments Orders INFORMATION SOURCE (unrecogn ized section and content) DATE CREATED AUTHOR 10/04/2024 [facility] DATE CREATED AUTHOR AUTHOR'S ORGANIZ ATION 11/11/2024 [facility] DATE CREATED AUTHOR AUTHOR'S ORGANIZ ATION 11/12/2024 [facility] FOR RECORDS PERTAINING TO PATIENTS WHO ARE [...] BE BASED ON THE PRIMARY CLINICAL RECORDS. [employer] [facility]. provides no warranty or guarantee of the accuracy or completeness of information in this document.
[2024-11-15 03:09] LABS: Magnesium 2.1 mg/dL (1.5-2.2)
[2024-11-15 03:20] LABS: Anion Gap 23 (5-15); BUN 20 mg/dL (4-19); BUN/Creat Ratio 16.3 RATIO (10-20); Calcium,Total 10.6 mg/dL (7.6-11.0); Carbon Dioxide 20.6 mmol/L (21.0-32.0); Chloride 94 mmol/L (98-108); Creatinine, Serum 1.25 mg/dL (0.70-1.20); EST Glomerular Filtration Rate 47 (>60); Estimated Creatinine Clearance 36.68 ml/min (50-250); Glucose 241 mg/dL (70-99); Potassium 4.3 mmol/L (3.3-5.1); Pro- Brain NATRIURETIC PEPTIDE 2999 pg/mL (<=900); Sodium Level 137 mmol/L (133-145)
--- NOTE | 2024-11-15 11:31 | CM.ED ---
Social Work Date of referral: 11/15/24 Reason for referral: Request for Advanced Care Directives (ACD's) Referred by: Rob Cordero Patient had already been discharged from the hospital once bilingual social worker arrived. switchboard wire worker helper attempted to make contact with patient via phone call, however, no answer. Farm Service Consultant left a message with general information on the number to call [facility] to schedule an appointment to get ACD's completed. Farm Service Consultant also left her name and contact number in the event patient has any additional needs/questions. Eva Zhou, MANAGER ART, CODING CLERKS SUPERVISOR
== END 2024-11-15 08:00 | disposition home or self-care (01) ==
PROVIDERS: Emergency Provider Emergency Medicine; PCP Family Medicine; Visit Provider Emergency Medicine
DX: I11.0 Hypertensive heart disease with heart failure (principal); I27.20 Pulmonary hypertension, unspecified; I27.81 Cor pulmonale (chronic); I50.9 Heart failure, unspecified; J44.9 Chronic obstructive pulmonary disease, unspecified; I25.10 Atherosclerotic heart disease of native coronary artery without angina pectoris; Z87.891 Personal history of nicotine dependence; E03.9 Hypothyroidism, unspecified; G47.33 Obstructive sleep apnea (adult) (pediatric); R05.9 Cough, unspecified; R06.09 Other forms of dyspnea; Z99.81 Dependence on supplemental oxygen
CPT/HCPCS: 71046; 80048; 83735; 83880; 85025; 87631; 93005; 94640; 96374; 99285; A4216

== ENCOUNTER 2024-11-24 13:00 | Outpatient (RCR) | payer MEDICARE, SELFPAY ==
[2024-09-30 07:50] VITALS: BMI 26.8
[2024-10-26 00:41] VITALS: BP 130/50; BP 142/60; BMI 26.8
--- NOTE | 2024-10-30 07:21 | PR.ITP_ITS ---
Exercise - Initial Assessment Visit Session Number:: 19 Physician Prescribed Exercise Modalities: SciFit Stepper and SciFit Pro-II Ergometer Target HR:: 114 (91-114) Current RPD:: 2 Maximum Exercise HR:: 116 Resting Blood Pressure: 120/60 Maximum Exercise Blood Pressure: 144/62 Minimum SpO2 with exercise: 91 EKG Type: NSR to ST with rare PVC's Nutrition/Wt Mgmt - Initial Visit Session Number:: 19 Weight Management Admit Height:: 5 ft 1 in Admit Weight:: 131 lb Admit BMI:: 24.7 Nutrition/Wt Mgmt - 30-Day Visit Date of Eval: 10/30/24 Session Number:: 19 Weight Management Height: 5 ft 1 in Weight:: 131 lb BMI: 24.7 Nutrition/Wt Mgmt - 60-Day Visit Date of Eval: 10/30/24 Session Number:: 19 Weight Management Height: 5 ft 1 in Weight:: 131 lb BMI: 24.7 Weight Goals Progress:: Goal met (Pt is at a healthy weight) Nutrition/Wt Mgmt - 90-Day Visit Session Number:: 19 Weight Management Height: 5 ft 1 in Weight:: 131 lb BMI: 24.7 Weight Goals Progress:: Goal met (Pt is at a healthy weight) Nutrition/Wt Mgmt - Final Visit Session Number:: 19 Weight Management Height: 5 ft 1 in Weight:: 131 lb BMI: 24.7 Psychosocial - Initial Assess Visit Session Number:: 19 Problems/Goals History of Emotional Disorders: None Psychosocial Goals: 1. Patient is free from overwhelming symtoms of depression (or anxiety, 2. Identifies personal stressors & states the strategies for managing, 3. Identifies activities to decrease isolation and/or symptoms of, 4. Improved psychosocial coping skills., 5. Verbalizes coping strategies., 6. Adequate treatment of depression. and 7. Improved Q.O.L. Psychosocial Test Tool Used:: PHQ-9 Questionnaire PHQ-9 Score: 10 Referred to MD for counseling:: No Referral to Behavioral Health PS - Interventions: Yes: Attend Stress Management Classes Intervention/Plan: See List Interventions/Plan:: Assess stressors,coping strategies & signs of derpression on admission, Instruct/assist pt to develop coping & personal stress Mgt strategies, Refer to Behavioral Health if appropriate, Refer to Physician if appropriate, Instruct patient to recognize signs & symptoms of depression and Instruct patient to recog Comments:: Pt to attend stress management class. Pt is doing well at this time. Psychosocial - 30-Day Visit Date of Eval: 10/30/24 Session Number:: 19 Problems/Goals History of Emotional Disorders: None Psychosocial Goals: 1. Patient is free from overwhelming symtoms of depression (or anxiety, 2. Identifies personal stressors & states the strategies for managing, 3. Identifies activities to decrease isolation and/or symptoms of, 4. Improved psychosocial coping skills., 5. Verbalizes coping strategies., 6. Adequate treatment of depression. and 7. Improved Q.O.L. Psychosocial Test Tool Used:: PHQ-9 Questionnaire PHQ-9 Score: 10 Referred to MD for counseling:: No Referral to Behavioral Health PS - Interventions: Yes: Attend Stress Management Classes Plan Interventions/Plan:: Assess stressors,coping strategies & signs of derpression on admission, Instruct/assist pt to develop coping & personal stress Mgt strategies, Refer to Behavioral Health if appropriate, Refer to Physician if appropriate, Instruct patient to recognize signs & symptoms of depression and Instruct patient to recog Comments:: Pt to attend stress management class. Pt is doing well at this time. Psychosocial - 60-Day Visit Date of Eval: 10/30/24 Session Number:: 19 Problems/Goals History of Emotional Disorders: None Psychosocial Goals: 1. Patient is free from overwhelming symtoms of depression (or anxiety, 2. Identifies personal stressors & states the strategies for managing, 3. Identifies activities to decrease isolation and/or symptoms of, 4. Improved psychosocial coping skills., 5. Verbalizes coping strategies., 6. Adequate treatment of depression. and 7. Improved Q.O.L. Psychosocial Test Tool Used:: PHQ-9 Questionnaire PHQ-9 Score: 10 Referred to MD for counseling:: No Referral to Behavioral Health PS - Interventions: Yes: Attend Stress Management Classes Plan Interventions/Plan:: Assess stressors,coping strategies & signs of derpression on admission, Instruct/assist pt to develop coping & personal stress Mgt strategies, Refer to Behavioral Health if appropriate, Refer to Physician if appropriate, Instruct patient to recognize signs & symptoms of depression and Instruct patient to recog Comments:: Pt to attend stress management class. Pt is doing well at this time. Psychosocial - -Day Visit Session Number:: 19 Problems/Goals History of Emotional Disorders: None Psychosocial Goals: 1. Patient is free from overwhelming symtoms of depression (or anxiety, 2. Identifies personal stressors & states the strategies for managing, 3. Identifies activities to decrease isolation and/or symptoms of, 4. Improved psychosocial coping skills., 5. Verbalizes coping strategies., 6. Adequate treatment of depression. and 7. Improved Q.O.L. Psychosocial Test Tool Used:: PHQ-9 Questionnaire PHQ-9 Score: 10 Referred to MD for counseling:: No Referral to Behavioral Health PS - Interventions: Yes: Attend Stress Management Classes Plan Interventions/Plan:: Assess stressors,coping strategies & signs of derpression on admission, Instruct/assist pt to develop coping & personal stress Mgt strategies, Refer to Behavioral Health if appropriate, Refer to Physician if appropriate, Instruct patient to recognize signs & symptoms of depression and Instruct patient to recog Comments:: Pt to attend stress management class. Pt is doing well at this time. Psychosocial - Final Assess Visit Session Number:: 19 Problems/Goals History of Emotional Disorders: None Psychosocial Goals: 1. Patient is free from overwhelming symtoms of depression (or anxiety, 2. Identifies personal stressors & states the strategies for managing, 3. Identifies activities to decrease isolation and/or symptoms of, 4. Improved psychosocial coping skills., 5. Verbalizes coping strategies., 6. Adequate treatment of depression. and 7. Improved Q.O.L. Psychosocial Test Tool Used:: PHQ-9 Questionnaire PHQ-9 Score: 10 Referred to MD for counseling:: No Referral to Behavioral Health PS - Interventions: Yes: Attend Stress Management Classes Plan Interventions/Plan:: Assess stressors,coping strategies & signs of derpression on admission, Instruct/assist pt to develop coping & personal stress Mgt strategies, Refer to Behavioral Health if appropriate, Refer to Physician if appropriate, Instruct patient to recognize signs & symptoms of depression and Instruct patient to recog Comments:: Pt to attend stress management class. Pt is doing well at this time. Oxygen & Oxygen Titration Init Visit Session Number:: 19 Initial Assessment SpO2:: 91 Oxygen & Oxygen Titration 30D Visit Date of Eval: 10/30/24 Session Number:: 19 Reassessment Breath Sounds:: Clear SpO2:: 91 Oxygen & Oxygen Titration 60D Visit Date of Eval: 10/30/24 Session Number:: 19 Reassessment Reassessment- 60 Days: Demonstrate knowledge of O2 Rx at rest & w/exercise, Using O2 as Rx'd, Has home O2 as Rx'd and Uses port O2 as Rx'd Breath Sounds:: Clear SpO2:: 91 Oxygen & Oxygen Titration 90D Visit Date of Eval: 10/30/24 Session Number:: 19 Reassessment Breath Sounds:: Clear SpO2:: 91 Oxygen & Oxygen Titration HELADIO Visit Date of Eval: 10/30/24 Session Number:: 19 Reassessment Breath Sounds:: Clear SpO2:: 91 Core Components - Initial Visit Session Number:: 19 Hypertension Hypertension Diagnosis:: Hypertension ICD-10 I10 BP: 120/60 [place] [employer] Hypertension Guidelines Blood Pressure: 144/62 Outcomes/Goals: Able to verbalize/achieve optimal blood pressure <130/80 and Incorporates diet changes & exercise for blood pressure control by DC Tobacco - Initial Assessment Tobacco Program Goals Tobacco Use: Non-smoker Education Schedule Given:: Yes Gave Education Materials For:: Tobacco Triggers, Pulmonary Disease, Risk Factors, Breathing Techniques, Medical Compliance, Pulmonary A&P, Exacerbation Signs & Symptoms and Stress & Relaxation Diabetes Diabetes:: No Core Components - 30 DAYS Visit Date of Eval: 10/30/24 Session Number:: 19 Hypertension Hypertension Diagnosis:: Hypertension ICD-10 I10 Resting Blood Pressure:: 120/60 [place] [employer] Hypertension Guidelines Peak Exercise Blood Pressure:: 144/62 Change in medication: No Outcomes/Goals: Able to verbalize/achieve optimal blood pressure <130/80 and Incorporates diet changes & exercise for blood pressure control by DC Interventions/plan: Instruct on optimal blood pressure, hypertension & medications, Instruct on effects of sodium, alcohol, stress, exercise &hypertension and Other additional plan/interventions 30 day Reassessments:: Progressing Reassessment Notes & Comments:: Pt's BP's are within AHA normal limits on some days. Will continue to encourage pt to eat a low sodium heart healthy diet. Tobacco - 30-Day Tobacco Program Goals Tobacco Use: Non-smoker Education Schedule Given:: Yes Gave Education Materials For:: Tobacco Triggers, Pulmonary Disease, Risk Factors, Breathing Techniques, Medical Compliance, Pulmonary A&P, Exacerbation Signs & Symptoms and Stress & Relaxation Exacerbation Mgmt & Airway Clearance Reassessment: Demonstrates knowledge of O2 Rx at rest, Demonstrates knowledge of O2 Rx with exercise, Using O2 as prescribed, Has home O2 as prescribed and Uses port O2 as prescribed Bronchial Hygiene Plan: Yes: Pt demonstrates correctly for effective cough, Yes: Pt demo correct for CPT, Yes: Pt demo correct for device, Yes: Pt demo correct for NS nasal spray, Yes: Pt demo correct for sputum management, Yes: Pt demo correct for improved hydration, Yes: Pt demo correct for hand hygiene, Yes: Pt demo correct for evalute sputum, Yes: Pt demo correct for verbalize when to call MD and Yes: Pt demo correct for cleaning of respiratory equipment Medication Taking medications 100% of the time:: Met (Pt takes meds as prescribed.) Medication reassessment: Yes: Pt demonstrates correct technique timing for MDI, Yes: Pt demonstrates correct technique timing for DPI, Yes: Pt demonstrates correct technique timing for NEB and Yes: Pt demonstrates correct technique timing for spacer Diabetes Diabetes:: No Core Components - 60 DAYS Visit Date of Eval: 10/30/24 Session Number:: 19 Hypertension Hypertension Diagnosis:: Hypertension ICD-10 I10 Resting Blood Pressure:: 120/60 [place] [employer] Hypertension Guidelines Peak Exercise Blood Pressure:: 144/62 Change in medication: No Outcomes/Goals: Able to verbalize/achieve optimal blood pressure <130/80 and Incorporates diet changes & exercise for blood pressure control by DC Interventions/plan: Instruct on optimal blood pressure, hypertension & medications, Instruct on effects of sodium, alcohol, stress, exercise &hypertension and Other additional plan/interventions 60 day Reassessments:: Progressing Reassessment Notes & Comments:: Pt's BP's are within AHA normal limits on some days. Will continue to encourage pt to eat a low sodium heart healthy diet. Tobacco - 60-Day Tobacco Program Goals Tobacco Use: Non-smoker Education Schedule Given:: Yes Gave Education Materials For:: Tobacco Triggers, Pulmonary Disease, Risk Factors, Breathing Techniques, Medical Compliance, Pulmonary A&P, Exacerbation Signs & Symptoms and Stress & Relaxation Exacerbation Mgmt & Airway Clearance Reassessment: Demonstrates knowledge of O2 Rx at rest, Demonstrates knowledge of O2 Rx with exercise, Using O2 as prescribed, Has home O2 as prescribed and Uses port O2 as prescribed Bronchial Hygiene Plan: Yes: Pt demonstrates correctly for effective cough, Yes: Pt demo correct for CPT, Yes: Pt demo correct for device, Yes: Pt demo correct for NS nasal spray, Yes: Pt demo correct for sputum management, Yes: Pt demo correct for improved hydration, Yes: Pt demo correct for hand hygiene, Yes: Pt demo correct for evalute sputum, Yes: Pt demo correct for verbalize when to call MD and Yes: Pt demo correct for cleaning of respiratory equipment Medication Medication list reviewed:: Yes Taking medications 100% of the time:: Met Taking medications 100% of the time:: Met (Pt takes meds as prescribed.) Medication reassessment: Yes: Pt demonstrates correct technique timing for MDI, Yes: Pt demonstrates correct technique timing for DPI, Yes: Pt demonstrates correct technique timing for NEB and Yes: Pt demonstrates correct technique timing for spacer Diabetes Diabetes:: No Core Components - 90 DAYS Visit Session Number:: 19 Hypertension Hypertension Diagnosis:: Hypertension ICD-10 I10 Resting Blood Pressure:: 120/60 [place] [employer] Hypertension Guidelines Peak Exercise Blood Pressure:: 144/62 Outcomes/Goals: Able to verbalize/achieve optimal blood pressure <130/80 and Incorporates diet changes & exercise for blood pressure control by DC Interventions/plan: Instruct on optimal blood pressure, hypertension & medications, Instruct on effects of sodium, alcohol, stress, exercise &hyp ertension and Other additional plan/interventions 90 day Reassessments:: Progressing Reassessment Notes & Comments:: Pt's BP's are within AHA normal limits on some days. Will continue to encourage pt to eat a low sodium heart healthy diet. Tobacco - 90-Day Tobacco Program Goals Tobacco Use: Non-smoker Education Schedule Given:: Yes Gave Education Materials For:: Tobacco Triggers, Pulmonary Disease, Risk Factors, Breathing Techniques, Medical Compliance, Pulmonary A&P, Exacerbation Signs & Symptoms and Stress & Relaxation Exacerbation Mgmt & Airway Clearance Bronchial Hygiene Plan: Yes: Pt demonstrates correctly for effective cough, Yes: Pt demo correct for CPT, Yes: Pt demo correct for device, Yes: Pt demo correct for NS nasal spray, Yes: Pt demo correct for sputum management, Yes: Pt demo correct for improved hydration, Yes: Pt demo correct for hand hygiene, Yes: Pt demo correct for evalute sputum, Yes: Pt demo correct for verbalize when to call MD and Yes: Pt demo correct for cleaning of respiratory equipment Medication Medication reassessment: Yes: Pt demonstrates correct technique timing for MDI, Yes: Pt demonstrates correct technique timing for DPI, Yes: Pt demonstrates correct technique timing for NEB and Yes: Pt demonstrates correct technique timing for spacer Diabetes Diabetes:: No Core Components - Final Visit Session Number:: 19 Hypertension Hypertension Diagnosis:: Hypertension ICD-10 I10 Resting Blood Pressure:: 120/60 [place] [employer] Hypertension Guidelines Peak Exercise Blood Pressure:: 144/62 Outcomes/Goals: Able to verbalize/achieve optimal blood pressure <130/80 and Incorporates diet changes & exercise for blood pressure control by DC Tobacco - Final Tobacco Program Goals Tobacco Use: Non-smoker Education Schedule Given:: Yes Exacerbation Mgmt & Airway Clearance Bronchial Hygiene Plan: Yes: Pt demonstrates correctly for effective cough, Yes: Pt demo correct for CPT, Yes: Pt demo correct for device, Yes: Pt demo correct for NS nasal spray, Yes: Pt demo correct for sputum management, Yes: Pt demo correct for improved hydration, Yes: Pt demo correct for hand hygiene, Yes: Pt demo correct for evalute sputum, Yes: Pt demo correct for verbalize when to call MD and Yes: Pt demo correct for cleaning of respiratory equipment Medication Medication reassessment: Yes: Pt demonstrates correct technique timing for MDI, Yes: Pt demonstrates correct technique timing for DPI, Yes: Pt demonstrates correct technique timing for NEB and Yes: Pt demonstrates correct technique timing for spacer Diabetes Diabetes:: No Patient Health Questionnaire PHQ-9 Screening 60-Day Re-eval Assessment: 1. Little interest or pleasure in doing things: More than half the days 2. Feeling down, depressed, or hopeless: More than half the days 3. Trouble falling or staying asleep, or sleeping too much: Not at all 4. Feeling tired or having little energy: More than half the days 5. Poor appetite or overeating: Not at all 6. Feeling bad about yourself -- or that you are a failure or have let yourself or your family down: More than half the days 7. Trouble concentrating on things, such as reading the newspaper or watching television: Not at all 8. Moving or speaking so slowly that other people could have noticed. Or the opposite - being so fidgety or restless that you have been moving around a lot more than usual: More than half the days 9. Thoughts that you would be better off , or of hurting yourself in some way: Not at all How difficult have these problems made it for you to do your work, take care of things at home, or get along with other people?: Somewhat difficult Total Score: 10 Knowledge Questionaire (BCKQ) Information Information: [place] COPD Knowledge Questionnaire (BCKQ) This questionnaire is designed to find out what you know about your lung problem. It should be completed without help form anyone else. This usually takes between 10 and 20 minutes. Your answers will help us to find out what information you need to help you to understand and manage your lung condition. Silvestre the gambell which you think is the correct answer. Self-Efficacy 6-Item Scale 60-Day Re-eval Assessment: We would like to know how confident you are in doing certain activities. Please select your confidence level for: Fatigue Select Number: 5 Physical Discomfort or Pain Select Number: 4 Emotional Distress Select Number: 4 Other Symptoms or Health Problems Select Number: 4 Different Tasks and Activities Select Number: 4 Medication Select Number: 4 Total Score:: 4 Nutrition Survey Nutrition Survey Instructions Scoring Instructions
[2024-10-30 07:38] VITALS: BP 120/60; BP 144/62; O2SAT 91; BMI 24.7
== END 2024-11-24 23:59 ==
LOC: PR 13:00
PROVIDERS: PCP Family Medicine; Referring Provider Family Medicine; Visit Provider Family Medicine
DX: R94.2 Abnormal results of pulmonary function studies (principal); I27.20 Pulmonary hypertension, unspecified; Z99.81 Dependence on supplemental oxygen
CPT/HCPCS: 97150; G0239

== ENCOUNTER → 2024-12-08 | Outpatient (CLI) | payer MEDICARE, SELFPAY ==
[2024-10-30 07:38] VITALS: BMI 24.7
[2024-11-27 07:22] VITALS: BMI 24.9
--- NOTE | 2024-12-08 12:34 | ECHOD_ITS ---
Reason For Study Reason For Study: SOB Procedure This was a 2D Doppler, Color Flow transthoracic echocardiogram. Exam performed in department. Left Ventricle Normal LV size. Mild concentric left ventricular hypertrophy. The LV ejection fraction is 65 %. Stage 1 diastolic dysfunction. Right Ventricle Mildly dilated RV with moderate RV systolic dysfunction. Septal flattening consistent with RV volume and pressure overload. Atria The left and right atria are normal. Mitral Valve Mild (1+) mitral valve insufficiency. Tricuspid Valve Mild tricuspid valve insufficiency. Right ventricular systolic pressure estimated to be 96 mmHg. Aortic Valve Aortic sclerosis, no stenosis. Pulmonic Valve The pulmonic valve is not well visualized. Great Vessels Normal sized aortic root. Pericardium/Pleural No pericardial effusion. MMode/2D Measurements & Calculations LVIDd: 3.4 cm IVSd: 1.2 cm Ao root diam: 3.3 cm LVIDs: 1.4 cm LVPWd: 0.95 cm FS: 57.8 % LAV(MOD-bp): 32.8 ml LVAd ap4: 18.3 cm2 SV(MOD-sp4): 25.9 ml LAV(MOD-bp) Indexed: 20.6 ml/m2 LVLd ap4: 7.2 cm SI(MOD-sp4): 16.2 ml/m2 LAV(MOD-sp2): 41.2 ml EDV(MOD-sp4): 38.9 ml LAV(MOD-sp4): 25.1 ml EDV(sp4-el): 39.4 ml LVAs ap4: 9.6 cm2 LVLs ap4: 6.1 cm ESV(MOD-sp4): 13.1 ml ESV(sp4-el): 12.8 ml EF(MOD-sp4): 66.5 % EF(sp4-el): 67.4 % SV(sp4-el): 26.6 ml LA A4 area: 12.8 cm2 LA dimension(2D): 3.5 cm RA A4 area: 10.2 cm2 TAPSE: 1.5 cm Doppler Measurements & Calculations MV E max brandon: 84.5 cm/sec Lat Peak E' Brandon: 9.8 cm/sec Med Peak E' Brandon: 5.9 cm/sec MV A max brandon: 126.8 cm/sec E/E' lat: 8.7 E/E' med: 14.4 MV E/A: 0.67 Ao V2 max: 157.3 cm/sec LV V1 max: 109.3 cm/sec PA V2 max: 99.7 cm/sec Ao max P.0 mmHg LV V1 max P.8 mmHg Ao V2 mean: 113.0 cm/sec LV V1 mean P.7 mmHg Ao mean P.7 mmHg LV V1 mean: 76.8 cm/sec Ao V2 VTI: 29.4 cm LV V1 VTI: 20.6 cm AV (velocity ratio): 0.70 TR max brandon: 475.8 cm/sec TR max P.6 mmHg ECHO/Echo Complete Interpretation Summary Mild concentric left ventricular hypertrophy. The LV ejection fraction is 65 %. Stage 1 diastolic dysfunction. Mildly dilated RV with moderate RV systolic dysfunction. Septal flattening cons istent with RV volume and pressure overload. Mild (1+) mitral valve insufficiency. Mild tricuspid valve insufficiency. Right ventricular systolic pressure estimated to be 96 mmHg. Ordering Physician: John Ojeda Referring Physician: Hoda Del Rosario Performed By: Maribell Morris RDCS
== END | disposition home or self-care (01) ==
LOC: CVS 12:33
PROVIDERS: PCP Family Medicine; Referring Provider Internal Medicine Cardiovascular Disease; Visit Provider Internal Medicine Cardiovascular Disease
DX: R06.09 Other forms of dyspnea (principal); I25.10 Atherosclerotic heart disease of native coronary artery without angina pectoris
CPT/HCPCS: 93306

== ENCOUNTER 2024-12-15 13:00 | Outpatient (RCR) | payer MEDICARE, SELFPAY ==
[2024-10-30 07:38] VITALS: BMI 24.7
--- NOTE | 2024-11-27 07:05 | PCM.PR.TP ---
Exercise - Initial Assessment Visit Session Number:: 30 Physician Prescribed Exercise Modalities: SciFit Stepper and SciFit Pro-II Ergometer Current METSs:: 3-3.1 Target HR:: 114 (91-114) Current RPD:: 2-3 Maximum Exercise HR:: 116 Resting Blood Pressure: 130/68 Maximum Exercise Blood Pressure: 128/52 Minimum SpO2 with exercise: 87 (Pt does stop or O2 is increased when pulse ox drops below the doctor recommended saturation. Pt is currently using 10-11 L with activity.) EKG Type: NSR to ST w/ occas PVC's Nutrition/Wt Mgmt - Initial Visit Session Number:: 30 Weight Management Admit Height:: 5 ft 1 in Admit Weight:: 132 lb Admit BMI:: 24.9 Nutrition/Wt Mgmt - 30-Day Visit Date of Eval: 11/27/24 Session Number:: 30 Weight Management Height: 5 ft 1 in Weight:: 132 lb BMI: 24.9 Nutrition/Wt Mgmt - 60-Day Visit Session Number:: 30 Weight Management Height: 5 ft 1 in Weight:: 132 lb BMI: 24.9 Weight Goals Progress:: Goal met (Pt is currently at a healthy weight. Pt has attended nutrition class.) Nutrition/Wt Mgmt - 90-Day Visit Date of Eval: 11/27/24 Session Number:: 30 Weight Management Height: 5 ft 1 in Weight:: 132 lb BMI: 24.9 Weight Goals Progress:: Goal met (Pt is currently at a healthy weight. Pt has attended nutrition class.) Nutrition/Wt Mgmt - Final Visit Session Number:: 30 Weight Management Height: 5 ft 1 in Weight:: 132 lb BMI: 24.9 Psychosocial - Initial Assess Visit Session Number:: 30 Problems/Goals History of Emotional Disorders: None Psychosocial Goals: 1. Patient is free from overwhelming symtoms of depression (or anxiety, 2. Identifies personal stressors & states the strategies for managing, 4. Improved psychosocial coping skills., 5. Verbalizes coping strategies., 6. Adequate treatment of depression. and 7. Improved Q.O.L. Psychosocial Test Tool Used:: PHQ-9 Questionnaire PHQ-9 Score: 10 Referral to Behavioral Health PS - Interventions: Yes: Attend Stress Management Classes Intervention/Plan: See List Interventions/Plan:: Assess stressors,coping strategies & signs of derpression on admission, Instruct/assist pt to develop coping & personal stress Mgt strategies and Instruct patient to recognize signs & symptoms of depression Comments:: Pt has attended stress management class. Pt is doing well at this time. Will continue to monitor. Psychosocial - 30-Day Visit Date of Eval: 11/27/24 Session Number:: 30 Problems/Goals History of Emotional Disorders: None Psychosocial Goals: 1. Patient is free from overwhelming symtoms of depression (or anxiety, 2. Identifies personal stressors & states the strategies for managing, 4. Improved psychosocial coping skills., 5. Verbalizes coping strategies., 6. Adequate treatment of depression. and 7. Improved Q.O.L. Psychosocial Test Tool Used:: PHQ-9 Questionnaire PHQ-9 Score: 10 Referral to Behavioral Health PS - Interventions: Yes: Attend Stress Management Classes Plan Interventions/Plan:: Assess stressors,coping strategies & signs of derpression on admission, Instruct/assist pt to develop coping & personal stress Mgt strategies and Instruct patient to recognize signs & symptoms of depression Comments:: Pt has attended stress management class. Pt is doing well at this time. Will continue to monitor. Psychosocial - 60-Day Visit Session Number:: 30 Problems/Goals History of Emotional Disorders: None Psychosocial Goals: 1. Patient is free from overwhelming symtoms of depression (or anxiety, 2. Identifies personal stressors & states the strategies for managing, 4. Improved psychosocial coping skills., 5. Verbalizes coping strategies., 6. Adequate treatment of depression. and 7. Improved Q.O.L. Psychosocial Test Tool Used:: PHQ-9 Questionnaire PHQ-9 Score: 10 Referral to Behavioral Health PS - Interventions: Yes: Attend Stress Management Classes Plan Interventions/Plan:: Assess stressors,coping strategies & signs of derpression on admission, Instruct/assist pt to develop coping & personal stress Mgt strategies and Instruct patient to recognize signs & symptoms of depression Comments:: Pt has attended stress management class. Pt is doing well at this time. Will continue to monitor. Psychosocial - 90-Day Visit Date of Eval: 11/27/24 Session Number:: 30 Problems/Goals History of Emotional Disorders: None Psychosocial Goals: 1. Patient is free from overwhelming symtoms of depression (or anxiety, 2. Identifies personal stressors & states the strategies for managing, 4. Improved psychosocial coping skills., 5. Verbalizes coping strategies., 6. Adequate treatment of depression. and 7. Improved Q.O.L. Psychosocial Test Tool Used:: PHQ-9 Questionnaire PHQ-9 Score: 10 Referral to Behavioral Health PS - Interventions: Yes: Attend Stress Management Classes Plan Interventions/Plan:: Assess stressors,coping strategies & signs of derpression on admission, Instruct/assist pt to develop coping & personal stress Mgt strategies and Instruct patient to recognize signs & symptoms of depression Comments:: Pt has attended stress management class. Pt is doing well at this time. Will continue to monitor. Psychosocial - Final Assess Visit Session Number:: 30 Problems/Goals History of Emotional Disorders: None Psychosocial Goals: 1. Patient is free from overwhelming symtoms of depression (or anxiety, 2. Identifies personal stressors & states the strategies for managing, 4. Improved psychosocial coping skills., 5. Verbalizes coping strategies., 6. Adequate treatment of depression. and 7. Improved Q.O.L. Psychosocial Test Tool Used:: PHQ-9 Questionnaire PHQ-9 Score: 10 Referral to Behavioral Health PS - Interventions: Yes: Attend Stress Management Classes Plan Interventions/Plan:: Assess stressors,coping strategies & signs of derpression on admission, Instruct/assist pt to develop coping & personal stress Mgt strategies and Instruct patient to recognize signs & symptoms of depression Comments:: Pt has attended stress management class. Pt is doing well at this time. Will continue to monitor. Oxygen & Oxygen Titration Init Visit Session Number:: 30 Initial Assessment SpO2:: 87 (Pt does stop or O2 is increased when pulse ox drops below the doctor recommended saturation. Pt is currently using 10-11 L with activity.) Oxygen & Oxygen Titration 30D Visit Date of Eval: 11/27/24 Session Number:: 30 Reassessment Breath Sounds:: Clear SpO2:: 87 (Pt does stop or O2 is increased when pulse ox drops below the doctor recommended saturation. Pt is currently using 10-11 L with activity.) Oxygen & Oxygen Titration 60D Visit Date of Eval: 11/27/24 Session Number:: 30 Reassessment Breath Sounds:: Clear SpO2:: 87 (Pt does stop or O2 is increased when pulse ox drops below the doctor recommended saturation. Pt is currently using 10-11 L with activity.) Oxygen & Oxygen Titration 90D Visit Date of Eval: 11/27/24 Session Number:: 30 Reassessment Oxygen & Oxygen Titration 90 days: Oxygen on Discharge, Continuous Home Use, Oxygen w/activity and Oxygen at HS Breath Sounds:: Clear SpO2:: 87 (Pt does stop or O2 is increased when pulse ox drops below the doctor recommended saturation. Pt is currently using 10-11 L with activity.) Oxygen & Oxygen Titration HELADIO Visit Date of Eval: 11/27/24 Session Number:: 30 Reassessment Breath Sounds:: Clear SpO2:: 87 (Pt does stop or O2 is increased when pulse ox drops below the doctor recommended saturation. Pt is currently using 10-11 L with activity.) Core Components - Initial Visit Session Number:: 30 Hypertension Hypertension Diagnosis:: Hypertension ICD-10 I10 BP: 130/68 [place] [employer] Hypertension Guidelines Blood Pressure: 128/52 Outcomes/Goals: Able to verbalize/achieve optimal blood pressure <130/80 and Incorporates diet changes & exercise for blood pressure control by DC Tobacco - Initial Assessment Tobacco Program Goals Tobacco Use: Non-smoker Gave Education Materials For:: Tobacco Triggers, Pulmonary Disease, Risk Factors, Breathing Techniques, Medical Compliance, Pulmonary A&P, Exacerbation Signs & Symptoms and Stress & Relaxation Diabetes Diabetes:: No Core Components - 30 DAYS Visit Date of Eval: 11/27/24 Session Number:: 30 Hypertension Hypertension Diagnosis:: Hypertension ICD-10 I10 Resting Blood Pressure:: 130/68 [place] [employer] Hypertension Guidelines Peak Exercise Blood Pressure:: 128/52 Outcomes/Goals: Able to verbalize/achieve optimal blood pressure <130/80 and Incorporates diet changes & exercise for blood pressure control by DC Interventions/plan: Instruct on optimal blood pressure, hypertension & medications and Instruct on effects of sodium, alcohol, stress, exercise &hypertension 30 day Reassessments:: Met Reassessment Notes & Comments:: Pt's BP's are within AHA normal limits on most days. Will continue to monitor and encourage a low sodium diet. Tobacco - 30-Day Tobacco Program Goals Tobacco Use: Non-smoker Gave Education Materials For:: Tobacco Triggers, Pulmonary Disease, Risk Factors, Breathing Techniques, Medical Compliance, Pulmonary A&P, Exacerbation Signs & Symptoms and Stress & Relaxation 30-day Reassessments:: Not Met (Pt is a non smoker) Exacerbation Mgmt & Airway Clearance Bronchial Hygiene Plan: Yes: Pt demonstrates correctly for effective cough, Yes: Pt demo correct for CPT, Yes: Pt demo correct for device, Yes: Pt demo correct for NS nasal spray, Yes: Pt demo correct for sputum management, Yes: Pt demo correct for improved hydration, Yes: Pt demo correct for hand hygiene, Yes: Pt demo correct for evalute sputum, Yes: Pt demo correct for verbalize when to call MD and Yes: Pt demo correct for cleaning of respiratory equipment Medication Medication reassessment: Yes: Pt demonstrates correct technique timing for MDI, Yes: Pt demonstrates correct technique timing for DPI, Yes: Pt demonstrates correct technique timing for NEB and Yes: Pt demonstrates correct technique timing for spacer Diabetes Diabetes:: No Core Components - 60 DAYS Visit Session Number:: 30 Hypertension Hypertension Diagnosis:: Hypertension ICD-10 I10 Resting Blood Pressure:: 130/68 [place] [employer] Hypertension Guidelines Peak Exercise Blood Pressure:: 128/52 Outcomes/Goals: Able to verbalize/achieve optimal blood pressure <130/80 and Incorporates diet changes & exercise for blood pressure control by DC Interventions/plan: Instruct on optimal blood pressure, hypertension & medications and Instruct on effects of sodium, alcohol, stress, exercise &hypertension 60 day Reassessments:: Met Reassessment Notes & Comments:: Pt's BP's are within AHA normal limits on most days. Will continue to monitor and encourage a low sodium diet. Tobacco - 60-Day Tobacco Program Goals Tobacco Use: Non-smoker Gave Education Materials For:: Tobacco Triggers, Pulmonary Disease, Risk Factors, Breathing Techniques, Medical Compliance, Pulmonary A&P, Exacerbation Signs & Symptoms and Stress & Relaxation 60-day Reassessments:: Not Met (Pt is a non smoker) Exacerbation Mgmt & Airway Clearance Bronchial Hygiene Plan: Yes: Pt demonstrates correctly for effective cough, Yes: Pt demo correct for CPT, Yes: Pt demo correct for device, Yes: Pt demo correct for NS nasal spray, Yes: Pt demo correct for sputum management, Yes: Pt demo correct for improved hydration, Yes: Pt demo correct for hand hygiene, Yes: Pt demo correct for evalute sputum, Yes: Pt demo correct for verbalize when to call MD and Yes: Pt demo correct for cleaning of respiratory equipment Medication Medication reassessment: Yes: Pt demonstrates correct technique timing for MDI, Yes: Pt demonstrates correct technique timing for DPI, Yes: Pt demonstrates correct technique timing for NEB and Yes: Pt demonstrates correct technique timing for spacer Diabetes Diabetes:: No Core Components - 90 DAYS Visit Date of Eval: 11/27/24 Session Number:: 30 Hypertension Hypertension Diagnosis:: Hypertension ICD-10 I10 Resting Blood Pressure:: 130/68 [place] [employer] Hypertension Guidelines Peak Exercise Blood Pressure:: 128/52 Outcomes/Goals: Able to verbalize/achieve optimal blood pressure <130/80 and Incorporates diet changes & exercise for blood pressure control by DC Interventions/plan: Instruct on optimal blood pressure, hypertension & medications and Instruct on effects of sodium, alcohol, stress, exercise &hypertension 90 day Reassessments:: Met Reassessment Notes & Comments:: Pt's BP's are within AHA normal limits on most days. Will continue to monitor and encourage a low sodium diet. Tobacco - 90-Day Tobacco Program Goals Tobacco Use: Non-smoker Gave Education Materials For:: Tobacco Triggers, Pulmonary Disease, Risk Factors, Breathing Techniques, Medical Compliance, Pulmonary A&P, Exacerbation Signs & Symptoms and Stress & Relaxation 90-day Reassessments:: Not Met (Pt is a non smoker) Exacerbation Mgmt & Airway Clearance Reassessment: Demonstrates knowledge of O2 Rx at rest, Demonstrates knowledge of O2 Rx with exercise, Using O2 as prescribed, Has home O2 as prescribed and Uses port O2 as prescribed Bronchial Hygiene Plan: Yes: Pt demonstrates correctly for effective cough, Yes: Pt demo correct for CPT, Yes: Pt demo correct for device, Yes: Pt demo correct for NS nasal spray, Yes: Pt demo correct for sputum management, Yes: Pt demo correct for improved hydration, Yes: Pt demo correct for hand hygiene, Yes: Pt demo correct for evalute sputum, Yes: Pt demo correct for verbalize when to call MD and Yes: Pt demo correct for cleaning of respiratory equipment Medication Medication list reviewed:: Yes Taking medications 100% of the time:: Met (Pt taking meds as prescribed.) Medication reassessment: Yes: Pt demonstrates correct technique timing for MDI, Yes: Pt demonstrates correct technique timing for DPI, Yes: Pt demonstrates correct technique timing for NEB and Yes: Pt demonstrates correct technique timing for spacer Diabetes Diabetes:: No Core Components - Final Visit Session Number:: 30 Hypertension Hypertension Diagnosis:: Hypertension ICD-10 I10 Resting Blood Pressure:: 130/68 [place] [employer] Hypertension Guidelines Peak Exercise Blood Pressure:: 128/52 Outcomes/Goals: Able to verbalize/achieve optimal blood pressure <130/80 and Incorporates diet changes & exercise for blood pressure control by DC Tobacco - Final Tobacco Program Goals Tobacco Use: Non-smoker Exacerbation Mgmt & Airway Clearance Bronchial Hygiene Plan: Yes: Pt demonstrates correctly for effective cough, Yes: Pt demo correct for CPT, Yes: Pt demo correct for device, Yes: Pt demo correct for NS nasal spray, Yes: Pt demo correct for sputum management, Yes: Pt demo correct for improved hydration, Yes: Pt demo correct for hand hygiene, Yes: Pt demo correct for evalute sputum, Yes: Pt demo correct for verbalize when to call MD and Yes: Pt demo correct for cleaning of respiratory equipment Medication Medication reassessment: Yes: Pt demonstrates correct technique timing for MDI, Yes: Pt demonstrates correct technique timing for DPI, Yes: Pt demonstrates correct technique timing for NEB and Yes: Pt demonstrates correct technique timing for spacer Diabetes Diabetes:: No Patient Health Questionnaire PHQ-9 Screening 90-Day Re-eval Assessment: 1. Little interest or pleasure in doing things: More than half the days 2. Feeling down, depressed, or hopeless: More than half the days 3. Trouble falling or staying asleep, or sleeping too much: Not at all 4. Feeling tired or having little energy: More than half the days 5. Poor appetite or overeating: Not at all 6. Feeling bad about yourself -- or that you are a failure or have let yourself or your family down: More than half the days 7. Trouble concentrating on things, such as reading the newspaper or watching television: Not at all 8. Moving or speaking so slowly that other people could have noticed. Or the opposite - being so fidgety or restless that you have been moving around a lot more than usual: More than half the days 9. Thoughts that you would be better off , or of hurting yourself in some way: Not at all How difficult have these problems made it for you to do your work, take care of things at home, or get along with other people?: Somewhat difficult Total Score: 10 Knowledge Questionaire (BCKQ) Information Information: [place] COPD Knowledge Questionnaire (BCKQ) This questionnaire is designed to find out what you know about your lung problem. It should be completed without help form anyone else. This usually takes between 10 and 20 minutes. Your answers will help us to find out what information you need to help you to understand and manage your lung condition. [place] which you think is the correct answer. Self-Efficacy 6-Item Scale 90-Day Re-eval Assessment: We would like to know how confident you are in doing certain activities. Please select your confidence level for: Fatigue Select Number: 5 Physical Discomfort or Pain Select Number: 4 Emotional Distress Select Number: 4 Other Symptoms or Health Problems Select Number: 4 Different Tasks and Activities Select Number: 4 Medication Select Number: 4 Total Score:: 4 Nutrition Survey Nutrition Survey Instructions Scoring Instructions
[2024-11-27 07:22] VITALS: BP 128/52; BP 130/68; O2SAT 87; BMI 24.9
== END 2024-12-25 23:59 ==
LOC: PR 13:00
PROVIDERS: PCP Family Medicine; Referring Provider Family Medicine; Visit Provider Family Medicine
DX: R94.2 Abnormal results of pulmonary function studies (principal); I27.20 Pulmonary hypertension, unspecified; Z99.81 Dependence on supplemental oxygen
CPT/HCPCS: 97150; G0239

== ENCOUNTER 2025-01-23 14:58 | Outpatient (RCR) | payer MEDICARE, SELFPAY ==
[2024-11-27 07:22] VITALS: BMI 24.9
[2025-01-23 17:49] LABS: Hematocrit 38.4 % (37-47); Hemoglobin 11.2 g/dL (12.0-15.0); Immature Granulocytes Count 0.030 X10^3/uL (0.0-0.0); Mean Corp Hgb Conc 29.2 g/dL (32-36); Mean Corpuscular Volume 84.4 fL (81-99); Mean Platelet Vol. 9.4 fl (6.2-12.0); NRBC Flagged by Analyzer 0 % (0-5); Platelet Count 426 K/mm3 (150-450); RBC Distribution Width CV 18.0 % (11.6-14.6); RBC Distribution Width SD 54.4 fl (35.1-43.9); Red Blood Count 4.55 M/mm3 (4.2-5.4); White Blood Count 8.6 K/mm3 (4.4-11.0)
== END 2025-01-25 23:59 ==
LOC: BFHLAB 14:58
PROVIDERS: PCP Family Medicine; Visit Provider Family Medicine
DX: Z79.899 Other long term (current) drug therapy (principal)
CPT/HCPCS: 36415; 85025

== ENCOUNTER → 2025-03-31 | Outpatient (CLI) | payer MEDICARE, SELFPAY ==
[2024-11-27 07:22] VITALS: BMI 24.9
[2025-03-31 17:41] LABS: Hematocrit 39.8 % (37-47); Hemoglobin 12.0 g/dL (12.0-15.0); Mean Corp Hgb Conc 30.2 g/dL (32-36); Mean Corpuscular Volume 84.7 fL (81-99); Mean Platelet Vol. 9.3 fl (6.2-12.0); POSITIVE MORPHOLOGY YES; Platelet Count 366 K/mm3 (150-450); RBC Distribution Width CV 22.8 % (11.6-14.6); RBC Distribution Width SD 69.9 fl (35.1-43.9); Red Blood Count 4.70 M/mm3 (4.2-5.4); White Blood Count 7.6 K/mm3 (4.4-11.0)
[2025-03-31 18:26] LABS: AST(SGOT) 13 U/L (<=31); Alanine Aminotransfer ALT/SGPT 12 U/L (<=34); Albumin, Serum 4.1 g/dL (3.4-4.8); Alkaline Phosphatase 94 U/L (35-104); Anion Gap 11 (5-15); BUN 16 mg/dL (4-19); BUN/Creat Ratio 21.8 RATIO (10-20); Calcium,Total 10.3 mg/dL (7.6-11.0); Carbon Dioxide 26.8 mmol/L (21.0-32.0); Chloride 99 mmol/L (98-108); Globulin 3.8 g/dL (2.2-4.2); Glucose 131 mg/dL (70-99); Iron 47 ug/dL (50-170); Iron Binding Capacity,Total 396 ug/dL (250-450); Iron Binding Capacity,Unsat 349 ug/dL (228-428); Potassium 4.2 mmol/L (3.3-5.1); Pro- Brain NATRIURETIC PEPTIDE 84 pg/mL (<=900)
[2025-03-31 20:21] LABS: Scan Indicated on CBC? Y/N YES- FLAGS NOTED
== END | disposition home or self-care (01) ==
LOC: BFHLAB 15:11
PROVIDERS: PCP Family Medicine
DX: I27.20 Pulmonary hypertension, unspecified (principal); E61.1 Iron deficiency
CPT/HCPCS: 36415; 80053; 83540; 83550; 83880; 85027

== ENCOUNTER 2025-04-21 13:55 | Outpatient (RCR) | payer MEDICARE, SELFPAY ==
[2024-11-27 07:22] VITALS: BMI 24.9
[2025-04-21 18:15] LABS: Hematocrit 44.8 % (37-47); Hemoglobin 13.2 g/dL (12.0-15.0); Immature Granulocytes Count 0.050 X10^3/uL (0.0-0.0); Mean Corp Hgb Conc 29.5 g/dL (32-36); Mean Corpuscular Volume 90.0 fL (81-99); Mean Platelet Vol. 9.8 fl (6.2-12.0); NRBC Flagged by Analyzer 0 % (0-5); POSITIVE MORPHOLOGY YES; Platelet Count 363 K/mm3 (150-450); RBC Distribution Width CV 22.6 % (11.6-14.6); RBC Distribution Width SD 73.4 fl (35.1-43.9); Red Blood Count 4.98 M/mm3 (4.2-5.4); White Blood Count 9.4 K/mm3 (4.4-11.0)
[2025-04-21 18:37] LABS: Differential Indicated SCAN CRITERIA MET
[2025-04-21 21:11] LABS: Differential Comment SCANNED
[2025-04-21 21:12] LABS: Anisocytosis 1+
== END 2025-04-26 23:59 ==
LOC: BFHLAB 13:55
PROVIDERS: PCP Family Medicine; Visit Provider Family Medicine
DX: I27.20 Pulmonary hypertension, unspecified (principal)
CPT/HCPCS: 36415; 85025

== ENCOUNTER → 2025-04-28 | Outpatient (CLI) | payer MEDICARE, SELFPAY ==
[2024-11-27 07:22] VITALS: BMI 24.9
[2025-04-28 16:00] LABS: Cholesterol 139 mg/dL (<=200); Low Density Lipoprotein Calc. 72 mg/dL; Triglycerides 80 mg/dL; Very Low Density Lipoprotein 16 mg/dL (5-40); cholesterol:hdl ratio screen 2.70
== END | disposition home or self-care (01) ==
LOC: BFHLAB 12:02
PROVIDERS: PCP Family Medicine; Visit Provider Family Medicine
DX: E03.9 Hypothyroidism, unspecified (principal); I10 Essential (primary) hypertension
CPT/HCPCS: 36415; 80061; 84439; 84443

== ENCOUNTER 2025-05-13 13:09 | Outpatient (RCR) | payer MEDICARE, SELFPAY ==
[2024-11-27 07:22] VITALS: BMI 24.9
[2025-05-13 15:32] LABS: Hematocrit 45.6 % (37-47); Hemoglobin 13.9 g/dL (12.0-15.0); Immature Granulocytes Count 0.030 X10^3/uL (0.0-0.0); Mean Corp Hgb Conc 30.5 g/dL (32-36); Mean Corpuscular Volume 91.2 fL (81-99); Mean Platelet Vol. 9.7 fl (6.2-12.0); NRBC Flagged by Analyzer 0 % (0-5); Platelet Count 328 K/mm3 (150-450); RBC Distribution Width CV 18.6 % (11.6-14.6); RBC Distribution Width SD 62.4 fl (35.1-43.9); Red Blood Count 5.00 M/mm3 (4.2-5.4); White Blood Count 10.2 K/mm3 (4.4-11.0)
== END 2025-05-27 23:59 ==
LOC: BFHLAB 13:09
PROVIDERS: PCP Family Medicine; Visit Provider Family Medicine
DX: I27.20 Pulmonary hypertension, unspecified (principal)
CPT/HCPCS: 36415; 85025

== ENCOUNTER → 2025-05-26 | Outpatient (CLI) | payer MEDICARE, SELFPAY ==
[2024-11-27 07:22] VITALS: BMI 24.9
--- NOTE | 2025-05-26 13:28 | BI_ITS ---
EXAM: SCRN MAMM (CAD)W/KUN BILAT DATE: 05/26/2025 CLINICAL HISTORY: F, Age 69 y/o , SCREENING TECHNIQUE: Procedure Code: [id number] Modality: MG Procedure: SCRN MAMM (CAD)W/KUN BILAT COMPARISON: Prior exam(s) dating back to January 2018 were compared FINDINGS: TISSUE DENSITY: There are scattered areas of fibroglandular density. Bilateral Breast Mammographic Findings: Left breast: There are calcifications in the upper slightly inner left breast posterior depth. Recommend diagnostic left breast mammogram magnification views. Right breast: No suspicious masses, calcifications or other abnormalities are identified. BI/SCRN MAMM (CAD)W/KNU BILAT IMPRESSION: Additional diagnostic imaging is recommended of the left breast as described ab ove. No mammographic evidence of malignancy in the right breast. OVERALL FINAL ASSESSMENT BI-RADS 0: INCOMPLETE - NEED ADDITIONAL IMAGING EVALUATION. RECOMMENDATION: Additional Views obtained/call backs Additional Recommendation none A letter with findings and recommendations will be mailed to the patient. Reading Location: [id number]
== END | disposition home or self-care (01) ==
LOC: OPBI 13:27
PROVIDERS: PCP Family Medicine; Referring Provider Family Medicine; Visit Provider Family Medicine
DX: Z12.31 Encounter for screening mammogram for malignant neoplasm of breast (principal)
CPT/HCPCS: 77063; 77067